=== PATIENT | female | born 1950 | race Caucasian/White ===

== ENCOUNTER 2018-07-07 02:41 | Outpatient (RCR) | payer MEDICARE, OTHER, SELFPAY ==
[2018-07-07] MEDS: Normal Saline Flush 10 ML SYR IVP (10:34)
== END 2018-07-09 ==
LOC: INF 02:41
PROVIDERS: PCP Internal Medicine; Visit Provider Internal Medicine
DX: M81.0 Age-related osteoporosis without current pathological fracture (principal)
CPT/HCPCS: 96365; J3489

== ENCOUNTER 2018-07-27 11:58 | Outpatient (CLI) | payer MEDICARE, OTHER, SELFPAY ==
--- NOTE | 2018-07-27 06:00 | DI.RAD_ITS ---
SYMPTOMS/DIAGNOSIS: SACROILIAC JOINT INJECTION PAIN CLINIC LUMBAR SPINE: Fluoroscopy Time: 15.9 sec, 1.83 mGy An image submitted from the Pain Clinic demonstrates needle positioning over the inferior portion of the right SI joint in conjunction with an injection carried out by Dr. Samuel. Please see the procedure report for further information.
[2018-07-27 12:14] VITALS: BP 108/69; PULSE 70; RESP 20; TEMP 36.1; O2SAT 98
[2018-07-27] MEDS: Omnipaque 240 MG/ML 50 ML BTL IJ (12:40)
[2018-07-27] MEDS: methylPREDNISolone ACETATE 80 MG/ML VIAL IJ (12:40)
--- NOTE | 2018-07-27 12:42 | PDOC.PAIN_ITS ---
Pain Clinic Procedure Note RIght Sacroiliac (SI) JOINT INJECTION KERI BROUSSARD has been referred to the [facility] for intra- articular SI joint injection. COMMENTS: She did very well with her first right SIJ injection BOBO was interviewed and the medical record reviewed. There were no medical, pharmacologic, radiographic or other structural contraindications to attempting fluoroscopically guided intra-articular SI joint injection. Risks and expected side effects as well as potential benefit of the procedure were reviewed with BOBO, and BOBO's voiced concerns addressed. The printed consent form was signed and witnessed. Standard time-out procedure was performed. BOBO was placed in the prone position on the fluoroscopy table and automated blood pressure cuff and pulse oximeter applied. The skin entry point for approaching right SI joints was identified under the most advantageous fluoroscopic view and marked. Following thorough Chlorhexadine preparation of the skin and draping and 1% lidocaine infiltration of the skin entry point and subcutaneous tissues, a 22 gauge spinal needle was placed under fluoroscopic guidance into the right SI joint. Intra-articular placement was confirmed by a clear arthrogram resulting from the injection of 0.25ml Omnipaque 240, 1ml 1% Lidocaine, and 80 mg/cc Depomedrol were injected intra-articularily with an initial reproduction of a significant component of the usual pain. EVANGELINAs vital signs were stable throughout the procedure and were as recorded in the docflowsheet by the nursing staff. Follow up plans and appointments were discussed with the BOBO. Post procedure instruction was given as documented in nursing documentation and having met discharge criteria, BOBO was discharged from the [facility]. COMMENTS: This procedure can be completed up to 4 times every 12 months if it is found to be helpful. CC: Ayah Albrecht
[2018-07-27 12:45] VITALS: BP 134/78; PULSE 66; RESP 13; O2SAT 100
== END 2018-07-27 12:18 ==
PROVIDERS: PCP Internal Medicine; Visit Provider Preventive Medicine Occupational Medicine
DX: M53.3 Sacrococcygeal disorders, not elsewhere classified (principal)
CPT/HCPCS: 27096; 72100; J1040; Q9967

== ENCOUNTER 2018-08-31 08:40 | Outpatient (CLI) | payer MEDICARE, OTHER, SELFPAY ==
[2018-08-31 08:45] VITALS: BP 109/77; PULSE 78; RESP 18; TEMP 36.3; O2SAT 100
[2018-08-31] MEDS: Omnipaque 240 MG/ML 50 ML BTL IJ (09:56)
[2018-08-31] MEDS: methylPREDNISolone ACETATE 40 MG/ML VIAL IJ (10:00)
--- NOTE | 2018-08-31 10:02 | DI.RAD_ITS ---
SYMPTOM/DIAGNOSIS: LUMBAR RADICULOPATHY C-ARM: Fluoroscopy Time: 22.7 sec 3.83 mGy Fluoroscopy was provided for guidance with lumbar spine pain clinic injection. Hard copy images show a needle inserted from the posterior aspect at the L 4-5 level. Please see procedure note for details.
[2018-08-31 10:11] VITALS: BP 152/69; PULSE 66; RESP 14; O2SAT 98
--- NOTE | 2018-08-31 10:11 | PDOC.PAIN ---
Pain Clinic Procedure Note Current Active Problems Problem Status Onset Lumbar radicular syndrome Chronic Epidural Steroid Injection Procedure Note COMMENTS: Patient has low back pain radiating to right lower extremity. She had 2 sacroiliac joint injections. The first 1 gave her some relief of her pain. The second 1 did not help. Going to chiropractor. She had an MRI which shows some degenerative changes at the lumbar spine multiple levels with some very mild foraminal narrowing at L4 on the right. KERI BROUSSARD has been referred to the [facility] for lumbar epidural steroid injection. The patient was greeted by the nurse who verified patients name and . Patient was then taken to the fluoroscopy suite. The patient was interviewed and the medial record reviewed. There were no medical, pharmacologic, radiographic, or other structural contraindications to attempting fluoroscopically guided lumbar epidural steroid injection. Risks and expected side effects as well as potential benefits of the procedure were reviewed and voiced concerns expressed. The patient consent form was signed and witnessed. Standard patient time-out procedure was performed. The patient was placed in the prone position on the fluoroscopy table and automated blood pressure cuff and pulse oximeter applied. The skin entry point for entering/approaching the epidural space by a {L4-5} and marked. Following thorough chlorhexadine preparation of the skin and draping and 1% lidocaine infiltration of the skin entry point and subcutaneous tissues, a 17 gauge Touhy needle was placed under fluoroscopic guidance and with loss of resistance technique into the epidural space. Needle tip placement and depth were aided and confirmed by fluoroscopy. There was no paresthesia or return of blood or CSF through the needle. 1 cc's of Omnipaque 240 was injected with clear epidural spread confirmed with fluoroscopy. 80mg depomedrol was injected. There was not any unusual discomfort expressed by KERI BROUSSARD. Patient's vital signs were stable throughout the procedure and were as recorded in nursing records. Follow up plans and appointments were discussed with patient. Post procedure instruction was given as documented in nursing records and having met discharge criteria and was discharged from the [facility]. COMMENTS: Patient will follow-up as needed. If he is not better I suggested he try Gayathri approach for her back pain and I have given her the book treat your own back. I would not repeat the injection if she did not get significant lasting relief. If she has signs of mechanical low back pain with facet loading then could always be considered for medial branch blocks and radiofrequency ablation. She will follow-up with either or [facility] if not better.
== END 2018-08-31 09:00 ==
PROVIDERS: PCP Internal Medicine; Visit Provider Anesthesiology Pain Medicine
DX: M54.16 Radiculopathy, lumbar region (principal); G89.29 Other chronic pain
CPT/HCPCS: 62323; 72100; J1030; Q9967

== ENCOUNTER 2018-09-16 08:07 | Outpatient (CLI) | payer MEDICARE, OTHER, SELFPAY ==
[2018-09-16 09:59] LABS: Cholesterol 204 mg/dL (50-200); HDL Cholesterol 115 mg/dL (40-60); LDL CHOLESTEROL 72 mg/dL (<100); Triglyceride 51 mg/dL (30-150)
[2018-09-16 10:37] LABS: ESR 21 MM/HR (0-30)
== END 2018-09-16 08:27 ==
PROVIDERS: PCP Internal Medicine; Visit Provider Internal Medicine
DX: R07.89 Other chest pain (principal)
CPT/HCPCS: 36415; 80061; 83721; 85652

== ENCOUNTER 2018-10-11 00:38 | Outpatient (CLI) | payer MEDICARE, OTHER, SELFPAY ==
--- NOTE | 2018-10-11 13:00 | DI.CTLCSR_ITS ---
SYMPTOM/DIAGNOSIS: TOBACCO DEPENDENCE, F17.210, SCREENING FOR LUNG CA CT SCAN CHEST FOR LUNG CANCER SCREENING: CT scan of the chest was performed according to the low dose lung cancer screening protocol. Comparison examination 06/01/17. There is atherosclerosis of the thoracic aorta but no aneurysmal dilatation. Heart size is within normal limits, no significant pericardial effusion seen. Coronary artery calcifications are present. No significant thoracic adenopathy is appreciated on this noncontrast examination. No pleural effusion or pneumothorax is identified. There are again seen mild emphysematous changes in the lungs. No pulmonary nodules or infiltrates are seen. The tracheobronchial tree is unremarkable. Mild dependent atelectatic changes are seen in the lungs. There is also mild scarring in the lung bases. Upper abdominal images show no acute abnormality. The bones appear intact. IMPRESSION: No pulmonary nodules. Lung rads Category 1. Lung-RAD Category: Lung RADS Category 1- Negative
== END 2018-10-11 00:58 ==
PROVIDERS: PCP Internal Medicine; Visit Provider Internal Medicine
DX: Z12.2 Encounter for screening for malignant neoplasm of respiratory organs (principal); F17.210 Nicotine dependence, cigarettes, uncomplicated; J43.9 Emphysema, unspecified; J98.4 Other disorders of lung
CPT/HCPCS: G0297

== ENCOUNTER 2018-10-13 01:06 | Outpatient (CLI) | payer MEDICARE, OTHER, SELFPAY ==
--- NOTE | 2018-10-13 14:30 | DI.MAMMO_ITS ---
SYMPTOM/DIAGNOSIS:SCREENING FOR BREAST CANCER BILATERAL SCREENING MAMMOGRAM: Mammograms were interpreted according to the usual protocol including computer analysis with CAD system, tomosynthesis and C view imaging. Comparison is made with exams from 2010 through 2017. The breasts are composed of scattered fibroglandular densities, breast density Category B. No suspicious masses or suspicious microcalcifications are seen. There has been no significant change. IMPRESSION: Category 1-B, negative mammogram. Yearly screening mammography is recommended. [facility] [[email or web address]] ASSESSMENT OF FINDINGS: Negative. Category 1. Patient will receive a letter notifying them of these results. BI-RADS category B. There are scattered areas of fibroglandular density.
== END 2018-10-13 01:26 ==
PROVIDERS: PCP Internal Medicine; Visit Provider Internal Medicine
DX: Z12.31 Encounter for screening mammogram for malignant neoplasm of breast (principal)
CPT/HCPCS: 77063; 77067

== ENCOUNTER 2019-07-14 04:26 | Outpatient (RCR) | payer MEDICARE, OTHER, SELFPAY ==
[2019-07-14] MEDS: Normal Saline Flush 10 ML SYR IVP (10:58)
== END 2019-08-08 23:59 | disposition home or self-care (01) ==
LOC: INF 04:26
PROVIDERS: PCP Internal Medicine; Visit Provider Internal Medicine
DX: M81.0 Age-related osteoporosis without current pathological fracture (principal)
CPT/HCPCS: 96365; J3489

== ENCOUNTER 2019-10-05 01:37 | Outpatient (CLI) | payer MEDICARE, OTHER, SELFPAY ==
--- NOTE | 2019-10-05 16:24 | DI.DEXA_ITS ---
EXAM: XR DEXA BONE DENSITY W/WO NEIDA CLINICAL HISTORY: Osteoporosis M81.0 TECHNIQUE: DEXA scan was performed according to the usual protocol. COMPARISON: MAY 2017 FINDINGS: Findings for left hip scanning are T-score -2.7 with left femoral neck T-score -2.5. Previous examin ation of May 2017 showed left hip T-score -2.7. Lumbar spine scanning shows T-score -2.7. Prior examination of May 2017 showed lumbar T-score -2.8. Left forearm scanning shows T-score -1.6. Previous examination showed T-score -1.2 in May 2017. IMPRESSION: Findings consistent with osteoporosis according to the WHO criteria. Lateral vertebral scanogram show s minimal anterior wedging of a couple of mid thoracic vertebral bodies.
== END 2019-10-05 01:57 ==
PROVIDERS: PCP Internal Medicine; Visit Provider Internal Medicine
DX: M81.0 Age-related osteoporosis without current pathological fracture (principal)
CPT/HCPCS: 77080

== ENCOUNTER 2019-10-17 00:07 | Outpatient (CLI) | payer MEDICARE, OTHER, SELFPAY ==
--- NOTE | 2019-10-17 08:37 | DI.CTLCSR_ITS ---
EXAM: CT CHEST LUNG CANCER SCREEN CLINICAL HISTORY: screening for lung cancer,nicotine dependence,f17.210 TECHNIQUE: Low-dose noncontrast COMPARISON: CT CHEST LUNG CANCER SCREEN from 10/11/2018 FINDINGS: The heart size is normal. Coronary artery and aortic calcifications are again noted. The aorta renny ears normal in diameter. No pleural or pericardial effusions or focal infiltrates are seen. Emphyse matous changes are again noted, greatest at the lung apices. There are also increased interstitial ch anges throughout, greater at the upper lobes and lung bases peripherally. No pulmonary nodules are i dentified. IMPRESSION: Lung RADS Cat 1 - Negative. Annual low-dose screening CT is recommended.
--- NOTE | 2019-10-17 08:42 | DI.MAMMO_ITS ---
EXAM: MG MAMMO SCREENING CLINICAL HISTORY: screening. TECHNIQUE: Full field digital CC and MLO mammographic images were obtained with 3D tomosynthesis and utilizing computer aided detection (CAD). COMPARISON: [id number] available for comparison. FINDINGS: Masses/Architectural Distortion: None seen. Microcalcifications: No suspicious pleomorphic-type are seen. Skin Thickening/Nipple Retraction: None. IMPRESSION: 1. No significant interval change with no specific features of malignancy noted. 2. Unless there is more urgent need, screening mammography is recommended, as per [place] [employer] guidelines. BI-RADS Cat 1 - Negative Breast Density - Category B - Scattered areas of fibroglandular density A negative radiographic report should not delay biopsy if a dominant or clinically suspicious mass is present. Up to ten percent of cancers are not identified on mammography. A negative report may reinforce clinical impression. Adenosis and dense breasts may obscure an underlying neoplasm. False positive reports average 6 to 10%. Patient will receive a letter notifying them of these results.
== END 2019-10-17 00:27 ==
PROVIDERS: PCP Internal Medicine; Visit Provider Internal Medicine
DX: Z12.31 Encounter for screening mammogram for malignant neoplasm of breast (principal); Z12.2 Encounter for screening for malignant neoplasm of respiratory organs; F17.210 Nicotine dependence, cigarettes, uncomplicated
CPT/HCPCS: 77063; 77067; G0297

== ENCOUNTER 2020-05-17 01:18 | Outpatient (CLI) | payer MEDICARE, OTHER, SELFPAY ==
[2020-05-17 08:43] LABS: Calculated LDL 85 mg/dL (<100); Cholesterol 194 mg/dL (<200); Glucose 98 mg/dL (74-106); HDL Cholesterol 102 mg/dL (40-60); Triglyceride 39 mg/dL (<150)
== END 2020-05-17 01:38 ==
PROVIDERS: PCP Internal Medicine; Visit Provider Internal Medicine
DX: E78.00 Pure hypercholesterolemia, unspecified (principal); R73.03 Prediabetes
CPT/HCPCS: 36415; 80061; 82947

== ENCOUNTER 2020-06-19 01:31 | Outpatient (CLI) | payer MEDICARE, OTHER, SELFPAY ==
--- NOTE | 2020-06-19 07:30 | DI.RAD_ITS ---
EXAM: XR ANKLE RT COMPLETE CLINICAL HISTORY: pain and swelling right ankle,M25.571,M25.473. TECHNIQUE: 2D digital imaging was performed. COMPARISON: No exams were available for comparison FINDINGS: BONES: No acute fracture is present. No bony destructive lesion is seen. JOINTS: The ankle mortise is normally aligned. SOFT TISSUE: Normal. IMPRESSION: Unremarkable radiographs of the right ankle. DATA REPOSITORY: RADIATION DOSE DELIVERED:
== END 2020-06-19 01:51 ==
PROVIDERS: PCP Internal Medicine; Visit Provider Nurse Practitioner
DX: M25.571 Pain in right ankle and joints of right foot (principal); M25.473 Effusion, unspecified ankle
CPT/HCPCS: 73610

== ENCOUNTER 2020-10-19 10:08 | Outpatient (CLI) | payer MEDICARE, OTHER, SELFPAY ==
--- NOTE | 2020-10-19 12:27 | DI.RAD_ITS ---
EXAM: XR FOOT LT COMPLETE CLINICAL HISTORY: R/o fx s/p fall M79.672. TECHNIQUE: 2D digital imaging was performed. COMPARISON: No exams were available for comparison FINDINGS: BONES: No acute fracture is present. No bony destructive lesion is seen. JOINTS: No dislocation present. SOFT TISSUE: Normal. IMPRESSION: Unremarkable radiographs of the left foot. DATA REPOSITORY: RADIATION DOSE DELIVERED:
--- NOTE | 2020-10-19 12:28 | DI.RAD_ITS ---
EXAM: XR ANKLE LT COMPLETE CLINICAL HISTORY: R/o fx s/p fall M25.572 TECHNIQUE: 2D digital imaging was performed. COMPARISON: CR XR FOOT LT COMPLETE from 10/19/2020 FINDINGS: No fracture or dislocation is seen. There is no talar dome defect. The ankle mortise is not widene d. IMPRESSION: Negative left ankle.
== END 2020-10-19 10:28 ==
PROVIDERS: PCP Internal Medicine; Visit Provider Nurse Practitioner Family
DX: M25.572 Pain in left ankle and joints of left foot (principal); M79.672 Pain in left foot
CPT/HCPCS: 73610; 73630

== ENCOUNTER 2020-10-22 00:22 | Outpatient (CLI) | payer MEDICARE, OTHER, SELFPAY ==
--- NOTE | 2020-10-22 07:45 | DI.CTLCSR_ITS ---
EXAM: CT CHEST LUNG CANCER SCREEN CLINICAL HISTORY: Screening for lung cancer,CURRENT SMOKER, F17.210. TECHNIQUE: Imaging Protocol: Low Dose Technique CONTRAST MATERIAL: None COMPARISON: CT CT CHEST LUNG CANCER SCREEN from 10/17/2019 FINDINGS: CHEST: LUNGS: Emphysematous changes again noted. There are no ominous pulmonary nodules. No pleural effusi ons. MEDIASTINUM: There is no obvious hilar nor mediastinal adenopathy. CARDIAC: Heart size is normal. There is no pericardial effusion.Caliber of the thoracic aorta is wit hin normal limits. OSSEOUS: No significant osseous lesions.. OTHER: IMPRESSION: 1. COPD emphysematous changes but no new significant infiltrates, lung nodules, nor pleural effusions . No obvious intrathoracic adenopathy. Lung rads 1-annual screening RADIATION DOSE DELIVERED: 82.24mGy.cm Total DLP 82.24mGy.cm Total DLP DATA REPOSITORY: All CT scans at this facility are submitted to the National Radiology Data Registry (NRDR) Dose Index Registry (DIR) with the [employer] (ACR). RADIATION OPTIMIZATION: All CT scans at this facility use at least one of these dose optimization te chniques: automated exposure control; mA and/or kV adjustment per patient size (includes targeted exa ms where dose is matched to clinical indication); or iterative reconstruction.
--- NOTE | 2020-10-22 12:45 | DI.MAMMO_ITS ---
EXAM: MG MAMMO SCREENING CLINICAL HISTORY: screening,Z12.39. TECHNIQUE: Bilateral full field digital CC and MLO mammographic images were obtained with 3D tomosyn thesis and utilizing computer aided detection (CAD). COMPARISON: Prior mammograms dating back to 2011, the most recent being October 2019. FINDINGS: There are no CAD designations. No new significant radiograph findings in left breast. In the central right breast there is a small asymmetric density more evident on prior studies. Spot compression 3D views recommended. There are no malignant-appearing microcalcification groups in this region or elsewhere in either breast. There is no significant architectural distortion nor skin thickening-retraction. IMPRESSION: No radiographic evidence of malignancy in the left breast. Right breast there is junction of this subtle density centrally at approximately 12 o'clock position. Recommend spot compression 3D cc and straight lateral views.. BI-RADS Category 0 - Assessment Incomplete: Need additional imaging evaluation Breast Density - Category B - Scattered areas of fibroglandular density Breast density Category C or D implies that the patient has dense breast tissue. Dense breast tissue can make it harder to find cancer on a mammogram. Dense breast tissue is also associated with an incr eased risk of breast cancer. This information about the result of the mammogram report was provided to the patient to raise their awareness. Use this report when you speak with the patient about their risks for breast cancer, which includes their family history. At that time, you may recommend additional screening tests (Ultrasoun d or MRI) as these tests may add significant information. A negative radiographic report should not delay biopsy if a dominant or clinically suspicious mass is present. Up to ten percent of cancers are not identified on mammography. A negative report may reinforce clinical impression. Adenosis and dense breasts may obscure an underlying neoplasm. False positive reports average 6 to 10%. Patient will receive a letter notifying them of these results.
== END 2020-10-22 00:42 ==
PROVIDERS: PCP Internal Medicine; Visit Provider Internal Medicine
DX: F17.210 Nicotine dependence, cigarettes, uncomplicated (principal); J44.9 Chronic obstructive pulmonary disease, unspecified; Z12.31 Encounter for screening mammogram for malignant neoplasm of breast; R92.8 Other abnormal and inconclusive findings on diagnostic imaging of breast
CPT/HCPCS: 77063; 77067; G0297

== ENCOUNTER 2020-10-26 04:18 | Outpatient (CLI) | payer MEDICARE, OTHER, SELFPAY ==
--- NOTE | 2020-10-26 | DI.US_ITS ---
EXAM: MG MAMMO SCREEN CALL BACK UNI AND U/S BREAST RT LIMITED CLINICAL HISTORY: F/U MAMMO, ASYMMETRIC DENSITY RT BREAST. TECHNIQUE: Craniocaudal and mediolateral oblique Full Field Digital Mammography views of the right b reast with Computer Aided Diagnosis followed by Tomosynthesis and right breast ultrasound. COMPARISON: Priors available for comparison. FINDINGS: Mammography/Tomosynthesis: Masses/Architectural Distortion: None seen. Microcalcifictions: No suspicious pleomorphic-type are seen. Skin Thickening/Nipple Retraction: None. Right breast US: All 4 quadrants of the right breast were evaluated including the right axilla and retroareolar areas. Echotexture: Normal appearance of the glandular tissue. Shadowing: No suspicious foci. Cyst: None. Solid lesions: None seen. Ductal dilation: None. IMPRESSION: 1. No evidence of malignancy is noted. 2. Unless there is more urgent need, follow-up screening mammography is recommended, as per [place] [employer] guidelines. 3. The findings were discussed with the patient on the date of the examination. BI-RADS Category 1 - Negative Breast Density - Category B - Scattered areas of fibroglandular density A negative radiographic report should not delay biopsy if a dominant or clinically suspicious mass is present. Up to ten percent of cancers are not identified on mammography. A negative report may reinforce clinical impression. Adenosis and dense breasts may obscure an underlying neoplasm. False positive reports average 6 to 10%. Patient will receive a letter notifying them of these results.
== END 2020-10-26 04:38 ==
PROVIDERS: PCP Internal Medicine; Visit Provider Internal Medicine
DX: Z12.31 Encounter for screening mammogram for malignant neoplasm of breast (principal); R92.8 Other abnormal and inconclusive findings on diagnostic imaging of breast; N60.81 Other benign mammary dysplasias of right breast
CPT/HCPCS: 76642; 77063; 77067

== ENCOUNTER 2021-02-26 02:39 | Outpatient (CLI) | payer MEDICARE, OTHER, SELFPAY ==
[2021-02-26 08:52] LABS: HCT 43.6 % (36.0-46.0); HGB 14.5 g/dL (11.2-15.7); MCH 30.9 pg (27.0-33.0); MCHC 33.3 % (32.0-36.0); MCV 92.8 fL (80-95); MPV 9.7 fL (8.0-11.0); Platelet Count 227 10^3/uL (130-400); RDW 13.3 % (11.7-14.6); RDW-SD 45.2 fL; WBC 5.91 10^3/uL (4.4-10.8)
[2021-02-26 10:04] LABS: ALT 24 U/L (14-59); AST 22 U/L (15-37); Albumin 4.1 g/dL (3.4-5.0); Alkaline Phosphatase 101 U/L (46-116); BUN 8 mg/dL (7-18); Bilirubin, Total 0.4 mg/dL (0.2-1.0); Calcium 9.4 mg/dL (8.5-10.1); Chloride 104 mmol/L (98-107); Glucose 97 mg/dL (74-106); Potassium 4.6 mmol/L (3.5-5.1); Sodium 140 mmol/L (136-145); Total Protein 7.5 g/dL (6.4-8.2)
== END 2021-02-26 02:40 | disposition home or self-care (01) ==
LOC: LBO 02:40
PROVIDERS: PCP Internal Medicine; Visit Provider Obstetrics & Gynecology Gynecology
DX: R10.9 Unspecified abdominal pain (principal); K58.9 Irritable bowel syndrome, unspecified; I65.29 Occlusion and stenosis of unspecified carotid artery
CPT/HCPCS: 36415; 80053; 85027

== ENCOUNTER → 2021-03-04 09:31 | Outpatient (BNVA) | payer MEDICARE, OTHER, SELFPAY | PROVIDERS: PCP Internal Medicine; Referring Provider Internal Medicine; Visit Provider Surgery | DX: K59.00 Constipation, unspecified (principal) | CPT/HCPCS: 99203 ==

== ENCOUNTER 2021-04-03 11:45 | Emergency (ER) | payer MEDICARE, OTHER, SELFPAY ==
[2021-04-03] VITALS (34 sets, daily range): BP systolic 146–174; BP diastolic 60–100; PULSE 53–72; RESP 11–21; TEMP 36.7; O2SAT 95–99
--- NOTE | 2021-04-03 11:45 | RT.EKG_ITS ---
APPROVED REPORT Exam: Resting ECG Reason for Exam: sob Patient Location: E HR:60 bpm ECG Measurements Heart Rate 60 AXIS MA 193 P 76 QRSd 134 QRS -27 QT 455 T 99 QTc 456 Conclusion Sinus rhythm...normal P axis, V-rate 60- 99 Left bundle branch block...QRSd>120, broad/notched R
--- NOTE | 2021-04-03 12:45 | DI.CT_ITS ---
Exam(s) CT HEAD WO EXAM: CT HEAD WO CLINICAL HISTORY: headache, chronic right arm paresthesia. TECHNIQUE: Imaging Protocol: Axial computed tomography images with coronal and sagittal reformatted images were created and reviewed COMPARISON: No exams were available for comparison FINDINGS: There are no skull fractures nor fluid in the visualized paranasal sinuses. There is no evidence of intracranial hemorrhage, mass effect, or shift of midline structures. There are no extra-axial fluid collections. The ventricles are not enlarged or shifted and there is no blo od within the ventricular system nor within the basal cisterns. Calcification noted in the vertebral arteries at the skull base as well as within the intracavernous internal carotid arteries. IMPRESSION: No acute intracranial findings on this noninfused CT scan of the brain. RADIATION DOSE DELIVERED: 628.83mGy.cm Total DLP DATA REPOSITORY: All CT scans at this facility are submitted to the National Radiology Data Registry (NRDR) Dose Index Registry (DIR) with the [employer] (ACR). RADIATION OPTIMIZATION: All CT scans at this facility use at least one of these dose optimization te chniques: automated exposure control; mA and/or kV adjustment per patient size (includes targeted exa ms where dose is matched to clinical indication); or iterative reconstruction.
[2021-04-03 12:59] LABS: Abs Immature Grans 0.02 10^3/uL (0.0-0.06); Absolute Basophil Count 0.07 10^3/uL (0.0-0.2); Absolute Eosinophil Count 0.03 10^3/uL (0.0-0.7); Absolute Lymphocyte Count 1.72 10^3/uL (1.2-3.4); Absolute Neutrophil Count 3.53 10^3/uL (1.2-6.7); Basophils % 1.2; Eosinophils % 0.5; HCT 40.1 % (36.0-46.0); HGB 13.6 g/dL (11.2-15.7); Immature Grans % 0.3; Lymphocytes % 29.3; MCH 30.8 pg (27.0-33.0); MCHC 33.9 % (32.0-36.0); MCV 90.9 fL (80-95); Monocytes % 8.5; Neutrophils % 60.2; Nucleated RBC 0 %; Platelet Count 231 10^3/uL (130-400); RBC 4.41 10^6/uL (3.93-5.22); RDW 13.3 % (11.7-14.6); RDW-SD 45.1 fL; WBC 5.87 10^3/uL (4.4-10.8)
[2021-04-03 13:36] LABS: ALT 22 U/L (14-59); AST 21 U/L (15-37); Albumin 3.8 g/dL (3.4-5.0); Alkaline Phosphatase 79 U/L (46-116); Anion Gap 7.7 mmol/L (3-11); BUN 9 mg/dL (7-18); Bilirubin, Total 0.5 mg/dL (0.2-1.0); CO2 27.3 mmol/L (21.0-32.0); Chloride 101 mmol/L (98-107); Glucose 88 mg/dL (74-106); NT-proBNP 482 pg/mL (<300); Sodium 136 mmol/L (136-145); Total Protein 7.1 g/dL (6.4-8.2); Troponin I < 0.05 ng/mL (<0.06)
--- NOTE | 2021-04-03 14:30 | DI.CT_ITS ---
Exam(s) CT CHEST PE CTA EXAM: CT CHEST PE CTA CLINICAL HISTORY: chest pain. TECHNIQUE: Imaging Protocol: CT angiography of the chest was performed using pulmonary embolus oscar col. Multi planar reconstructions were performed. CONTRAST MATERIAL: Intravenous: Omnipaque 350 Contrast volume: 90 cc COMPARISON: CT CT CHEST LUNG CANCER SCREEN from 10/22/2020 FINDINGS: CHEST: PULMONARY ARTERIES: There are no intraluminal filling defects to suggest acute pulmonary emboli. LUNGS: There are no infiltrates nor evidence of pulmonary infarction.. There are no pleural effusions . MEDIASTINUM: There is no hilar nor mediastinal adenopathy. CARDIAC: Heart size is upper normal. There is no pericardial effusion.Caliber of the thoracic aorta is within normal limits. There is no significant shift of the interventricular septum. PARTIALLY VISUALIZED UPPERMOST ABDOMEN: No obvious findings OSSEOUS: No significant osseous lesions.. IMPRESSION: 1. No evidence of acute pulmonary emboli. No evidence of pulmonary infarction.No pleural effusions. 2. No intrathoracic adenopathy. RADIATION DOSE DELIVERED: 257.03mGy.cm Total DLP DATA REPOSITORY: All CT scans at this facility are submitted to the National Radiology Data Registry (NRDR) Dose Index Registry (DIR) with the [employer] (ACR). RADIATION OPTIMIZATION: All CT scans at this facility use at least one of these dose optimization te chniques: automated exposure control; mA and/or kV adjustment per patient size (includes targeted exa ms where dose is matched to clinical indication); or iterative reconstruction.
--- NOTE | 2021-04-03 14:36 | W.ED.GENAD ---
Discharge Plan Disposition Patient Disposition: HOME Condition: Stable Discharge Details Clinical Impression: Headache, Chest pain, Hiatal hernia Primary Care Provider: Ayah Albrecht ED Provider: Maximo Vazquez Home Meds and New Rx's Prescriptions: Continued ibuprofen [Advil] 200 mg tablet 600 mg PO Q6H PRNRF: 0 trazodone 100 mg tablet 200 mg PO HS Qty: 180 RF: 3 Linzess 72 mcg capsule 72 mcg PO DAILY Qty: 30 RF: 12 lubiprostone [Amitiza] 8 mcg capsule 8 mcg PO DAILY Qty: 30 RF: 12 sennosides-docusate sodium [Senna-S] 8.6-50 mg tablet 1 tab-cap PO QHS RF: 0 calcium carbonate-vitamin D3 [Caltrate with Vitamin D3] 1 EACH tablet 1 ea PO BID RF: 0 gabapentin [Neurontin] 600 mg tablet 600 mg PO HS Qty: 90 RF: 3 duloxetine 20 mg capsule,delayed release(DR/EC) 20 mg PO DAILY Qty: 90 RF: 2 acetaminophen [Pain Reliever Extra Strength] 500 MG tablet 1,000 mg PO PRN PRNRF: 0 Probiotic Blend 2 billion cell-50 mg Capsule 1 cap PO QAM RF: 0 Magnacom 1 ea PO HS RF: 0 Discharge Instructions Instructions: Chest Pain (ED), Hiatal Hernia (ED), General Headache (ED) Additional Instructions: You had an occipital block performed today for your headache. Blood test today did not reveal heart attack. Your BNP level was slightly elevated. Be sure to discuss this with your doctor. You should have a stress test performed ideally within the next 72 hours. Please do follow-up with your primary care physician. Call tomorrow to arrange timely follow-up. Referrals: Ayah Albrecht MD [Primary Care Provider] - Medical Decision Making [id number] -- 70-year-old female smoker with intermittent chest tightness for the past 1 week with associated presyncope also with pain in her posterior neck and head. Patient does have dyspnea on exertion. Concern for ACS ECG was reviewed interpreted by me: Please see report,Left bundle branch block present, sinus rhythm 60 bpm?left bundle branch block was present on prior EKG 04/2014. Initial troponin is negative. Consider CHF as patient does have new onset dyspnea on exertion. I check BNP and this was slightly elevated at 482. Consider acute pulmonary embolism given chest pain. Plan to obtain CTA of the chest. Patient does have headache as well, unclear etiology, no meningismus, recent memory difficulty and also some decreased sensation to light touch right arm that is chronic, will obtain CT of the head. --CT head interpreted by radiology: neg 1600 --CT of the chest was interpreted by radiology: IMPRESSION: 1. No evidence of acute pulmonary emboli. No evidence of pulmonary infarction.No pleural effusions. 2. No intrathoracic adenopathy. Labs reviewed and nondiagnostic. Initial troponin negative. Plan to repeat troponin. Patient was reassessed and denies CP. She continues to note mild to moderate headache which is localized to upper neck posterior bilateral and occiput that radiates to her superior head. Presentation is not consistent with subarachnoid hemorrhage. More likely tension headache versus migraine. Patient does note she frequently does have headaches. I spoke with her about occipital block she provided informed consent to this treatment. Occipital block was performed by me without complication 1640??patient reassessed and pain resolved with block . Patient was hungry and was given a meal tolerating well. Plan will be for discharge with outpatient follow-up with PCP and she should have stress test performed. Disposition decision was made weighing the risks and benefits of hospitalization versus outpatient treatment, the risk for further decompensation, and the patient's wishes. The patient was stable and requested discharge. Prior to discharge, my usual and customary return precautions were reviewed with the patient - this included follow-up instructions and reason to return to the emergency department if condition worsens, does not improve as expected, or other new concerns arise. HPI General Date/Time Provider Initiated Documentation: 04/03/21 12:10. Limitations to Documentation: no limitations. Information obtained by: patient. HPI Narrative: 70-year-old female with multiple medical problems including history of tobacco dependence, pulmonary emphysema, GERD, presents with chief complaint of chest pain. Patient has she had intermittent chest pain for the past 1 week. Pain is described as a tightness. Pain localized retrosternal and left anterior chest. Patient notes that she has had some lightheadedness described as presyncope intermittent over the past couple days. She did experience this earlier today patient also notes some associated pain in her posterior neck bilaterally and also has had headache. Patient also has had exertional shortness of breath. Patient states she has intermittent tingling numbness in her hands bilaterally. She does not currently have numbness. No focal weakness Related Data Home Medications Medication Instructions Recorded Confirmed calcium carbonate-vitamin D3 1 ea PO BID 04/07/17 04/03/21 [Caltrate with Vitamin D3] acetaminophen [Pain Reliever Extra 1,000 mg PO PRN PRN 05/25/18 04/03/21 Strength] sennosides 8.6 mg-docusate sodium 1 tab-cap PO QHS 12/08/19 04/03/21 50 mg tablet ibuprofen 200 mg tablet 600 mg PO Q6H PRN tab 06/19/20 04/03/21 gabapentin 600 mg tablet 600 mg PO HS #90 tab 10/17/20 04/03/21 trazodone 100 mg tablet 200 mg PO HS #180 tab-cap 10/23/20 04/03/21 duloxetine 20 mg capsule,delayed 20 mg PO DAILY #90 cap 11/20/20 04/03/21 release linaclotide 72 mcg capsule 72 mcg PO DAILY #30 cap 03/04/21 04/03/21 lubiprostone 8 mcg capsule 8 mcg PO DAILY #30 cap 03/04/21 04/03/21 Magnacom 1 ea PO HS 04/03/21 04/03/21 Probiotic Blend 1 cap PO QAM 04/03/21 04/03/21 Previous Rx's Medication Instructions Recorded gabapentin 600 mg tablet 600 mg PO HS #90 tab 10/17/20 trazodone 100 mg tablet 200 mg PO HS #180 tab-cap 10/23/20 duloxetine 20 mg capsule,delayed 20 mg PO DAILY #90 cap 11/20/20 release linaclotide 72 mcg capsule 72 mcg PO DAILY #30 cap 03/04/21 lubiprostone 8 mcg capsule 8 mcg PO DAILY #30 cap 03/04/21 Allergies Allergy/AdvReac Type Severity Reaction Status Date / Time Sulfa (Sulfonamide Allergy Intermediate swelling, Verified 04/03/21 12:23 Antibiotics) hives, itching oxycodone HCl [From Percocet] Allergy Unknown unknown Verified 04/03/21 12:23 omeprazole AdvReac Intermediate bloating, Verified 04/03/21 12:23 itching diarrhea, varenicline tartrate AdvReac Intermediate Anxiety/hea Verified 04/03/21 12:23 [From Chantix] dache/dopin ess. General Stated Complaint: Chest Pain DAVID: 2 Review of Systems All systems reviewed & are unremarkable except as noted in HPI and below Constitutional Constitutional: Denies fever(s) Cardiovascular Cardiovascular: Reports as per HPI, Reports chest pain, Reports dyspnea and Reports dyspnea on exertion Respiratory Respiratory: Reports dyspnea and Reports dyspnea on exertion [facility] Medical History Essential hypertension (11/13/11) Essential hypertension (11/13/11) Lumbar radicular syndrome Non-cardiac chest pain (05/01/15) Vulvar pruritus Not responsive to topical estrogen. 09/2019 patient treated with clobetasol cream 11/2019 symptoms improving we will continue twice weekly Surgical History Abdominal hysterectomy Colonoscopy - IV Sedation (07/07/14) Dr. Kt Nava, Both Family History Sister Essential hypertension Brother Essential hypertension Sister Rheumatoid arthritis Hypertension Social History Smoking/Tobacco Use Status: Current every day Tobacco: How many years used: 50 Quit status: not considering quitting Smoking risk assessment performed?: Yes Alcohol Intake: current Alcohol Intake frequency: holidays/special occasions only Drug use: Never Substance use type: does not use Caregiver/Support person: No Household members: spouse and other Details: H-Marvel x 50yrs Housing: house Number of Children: 2 Communication Needs: Corrective Lenses current occupation: retired Current gender identity: female What is your relationship status?: Panel score (0-1 are the most socially isolated patients): 1 What type of physical activity do you participate in: walking Frequency: 3-4 times per week Seatbelt use: always Drive intox or ride w/intox 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 Children. Sonia. 48yo. Wilner 45yo. One grandchild. Exam Const General: cooperative and no acute distress [facility] Head: normocephalic and atraumatic Mouth: moist mucous membranes Eyes Conjunctivae: normal conjunctivae Sclera: normal sclerae EOM: EOM intact bilaterally Neck Neck: trachea midline and supple Resp Auscultation: clear to auscultation bilaterally, no rales, no rhonchi and no wheezes Cardio Rate: regular rate and not tachycardic Rhythm: regular rhythm GI Palpation: soft, not firm, no guarding, no masses, not rigid and nontender Skin General skin exam: no rashes or lesions noted Neuro General: patient alert, patient awake, patient oriented x3 and tone normal Speech: speech normal Motor: strength 5/5 throughout Sensory Exam: other (Diminished sensation to light touch right upper extremity compared to left ) Extrem General: no calf tenderness and no edema Psych Appearance: grossly normal Mental Status: mental status grossly normal Speech and Movement: speech and movement normal Course Vital Signs Vital signs: Vital Signs Temperature 36.7 C 04/03/21 12:05 Pulse 61 04/03/21 12:05 Respiratory Rate 16 04/03/21 12:05 Blood Pressure 150/75 H 04/03/21 12:05 Pulse Oximetry 97 04/03/21 12:05 Temperature 36.7 C 04/03/21 12:05 Temperature Source Oral 04/03/21 12:05 Pulse 60 04/03/21 14:16 Pulse 61 04/03/21 14:20 Respiratory Rate 15 04/03/21 14:20 Blood Pressure 146/73 H 04/03/21 14:16 Blood Pressure Mean 91 04/03/21 14:16 Pulse Oximetry 97 04/03/21 14:20 Oxygen Delivery Method Room Air 04/03/21 12:05 Oxygen Flow Rate 0 04/03/21 12:05 Pain Level 7 04/03/21 12:05 Lab/Test Results Lab/Test Results: Laboratory Tests Range/Units 04/03/21 04/03/21 04/03/21 12:30 12:30 13:05 WBC (4.4-10.8) 10^3/uL 5.87 RBC (3.93-5.22) 10^6/uL 4.41 Hgb (11.2-15.7) g/dL 13.6 Hct (36.0-46.0) % 40.1 MCV (80-95) fL 90.9 MCH (27.0-33.0) pg 30.8 MCHC (32.0-36.0) % 33.9 RDW (11.7-14.6) % 13.3 Plt Count (130-400) 10^3/uL 231 MPV (8.0-11.0) fL 10.0 Immature Gran % 0.3 Neutrophils % 60.2 Lymphocytes % 29.3 Monocytes % 8.5 Eosinophils % 0.5 Basophils % 1.2 Nucleated RBC % % 0 Absolute Neutrophils (1.2-6.7) 10^3/uL 3.53 Absolute Lymphocytes (1.2-3.4) 10^3/uL 1.72 Absolute Monocytes (0.1-0.8) 10^3/uL 0.50 Absolute Eosinophils (0.0-0.7) 10^3/uL 0.03 Absolute Basophils (0.0-0.2) 10^3/uL 0.07 Sodium Cancelled 136 Potassium Cancelled 4.0 Chloride Cancelled 101 Carbon Dioxide Cancelled 27.3 Anion Gap Cancelled 7.7 BUN Cancelled 9 Creatinine Cancelled 1.0 Estimated GFR/1.73 m2 Cancelled 54.50 Glucose Cancelled 88 Calcium Cancelled 9.0 Total Bilirubin Cancelled 0.5 AST Cancelled 21 ALT Cancelled 22 Alkaline Phosphatase Cancelled 79 Troponin I Cancelled < 0.05 NT-Pro-B Natriuret Pep (<300) pg/mL 482 H Total Protein Cancelled 7.1 Albumin Cancelled 3.8 Procedures Nerve Block Nerve Block 1: Time out performed: Yes Local Anesthetic: Lidocaine 1% and Bupivicaine 0.5% Amount of anesthesia used (mL): 4 Side: left and right Nerve Blocks: occipital Procedure Successful: Yes Patient Tolerated Procedure: well Complications: none
[2021-04-03] MEDS: Omnipaque 350 MG/ML 100 ML BTL IJ (14:47)
[2021-04-03] MEDS: Normal Saline - Diluent 50 ML VIAL IV (14:48)
[2021-04-03 16:23] LABS: Troponin I < 0.05 ng/mL (<0.06)
--- NOTE | 2021-04-04 17:50 | NUR.NOTE ---
Nursing Note: referral to cm to make follow up with pcp for possible memory issues
== END 2021-04-03 17:16 | disposition home or self-care (01) ==
PROVIDERS: Emergency Provider Student in an Organized Health Care Education/Training Program; PCP Internal Medicine
DX: R07.89 Other chest pain (principal); R51.9 Headache, unspecified; R79.89 Other specified abnormal findings of blood chemistry; R06.09 Other forms of dyspnea; J43.9 Emphysema, unspecified
CPT/HCPCS: 36415; 36416; 64450; 71275; 80053; 82962; 93005; 99285; 70450; 83880; 84484; 85025; 93010; J3490

== ENCOUNTER → 2021-04-15 09:54 | Outpatient (BNVA) | payer MEDICARE, OTHER, SELFPAY | PROVIDERS: PCP Internal Medicine; Referring Provider Internal Medicine; Visit Provider Surgery | DX: K59.00 Constipation, unspecified (principal) | CPT/HCPCS: 99213 ==

== ENCOUNTER 2021-04-16 02:11 | Outpatient (CLI) | payer MEDICARE, OTHER, SELFPAY ==
--- NOTE | 2021-04-16 06:45 | DI.NM_ITS ---
APPROVED REPORT Exam: Pharmacologic Patient Location: Out-Patient Room/Bed: Stress Nurse: Caitlin Viramontes RN Ordering Provider:RAPHAEL DIXON, Contact Number: [phone] BMI: 20.42 Baseline Rhythm: Sinus Bradycardia Comment: LBBB Indications: Atypical chest pain Medical History Medical History: Hypertension, tobacco use, carotid artery occlusion, pulmonary emphysema, gerd, oste oporosis, fatigue, depression/anxiety, spinal stenosis, SOB Cardiac Medications: None Allergies: Sulfa antibiotics, oxycodone HCL, varenicline tartrate Cardiac Risk Factors: Hypertension, smoker (current), family hx Previous Cardiac Procedures: cardiac cath approx 6 yrs ago Pretest Chest Pain Characteristics: Intermittent chest pressure 4/10 Exercise History: Sedentary Physical Disabilities: None Lung Sounds: Diminished lower lobes Heart Sounds: Regular Stress Test Details Test: Pharmacologic stress was paired with low level exercise. Reason for pharmacologic stress test: LBBB. Nuclear Acquisition: Rest Tc-99m/Stress Tc-99m 1 day Rest Isotope: Tc-99m Sestamibi. Dose: 10.4 Date: 04/16/2021 Injection Time: 0840 Stress Isotope: Tc-99m Sestamibi. Dose: 31.8 Date: 04/16/2021 Injection Time: 1000 HR Resting HR Supine: 52 bpm Max Heart Rate (APMHR): 148.905935 bpm Resting HR Standin bpm Target HR (85% APMHR): 125.628938 bpm Max HR Achieved: 120 bpm % of APMHR: 81.08 Recovery HR: 85 bpm BP Resting BP Supine: 150/78 mmHg Resting BP Standin/82 mmHg Max BP: 150/78 mmHg Recovery BP: 148/74 mmHg ECG Resting ECG: Sinus Bradycardia, LBBB Ectopy: None Stress ECG: Sinus Tachycardia, LBBB ST Change: Nondiagnostic LBBB Arrhythmia: Rare PAC Recovery ECG: Sinus Rhythm, LBBB Recovery ST Change: Nondiagnostic LBBB Recovery Arrhythmia: None Clinical Stress Symptoms: Dyspnea, Headache, Pounding sensation Exercise duration: 4 min15 sec Stress ECG Conclusion 1. This is a pharmacological stress test. 2. Patient developed symptoms of chest pounding and some chest pressure during infusion. 3. The EKG portion of this exam is nondiagnostic. Stress Test Summary STAGE HR BP Symptoms NOTES Supine 52 150/78 Intermittent chest pressure 4/10 this morning 1 min post Lexiscan injection 103 140/70 mild SOB, SpO2 96% 3 min post Lexiscan injection 100 134/76 SOB resolved, SpO2 98%, THOMAS 4/10, midsternal pounding fe eling 6 min post Lexiscan injection 80 148/74 THOMAS 8/10, mild nausea, pounding resolved Walking Lexiscan completed. Pt felt a midsternal pounding sensation after returning to supine posit ion for recovery, quickly resolved. Although THOMAS increased during recovery period, pt stated she felt alright and planned to have caffeine after completion of test. MPI Conclusion Ejection fraction was 67% with stress. There were no wall motion abnormalities. There was no evidence of ischemia on the imaging portion of the exam. This represents a normal SPECT stress test. Radiologist Interpretation Radiologist Interpretation by: Marvel Rodriguez MD Interpretation Date/Time: 04/16/2021 16:00:06
[2021-04-16] MEDS: Regadenoson 0.4 MG/5 ML SYR IVP (10:05)
== END 2021-04-16 02:31 ==
PROVIDERS: PCP Internal Medicine; Visit Provider Internal Medicine
DX: R07.9 Chest pain, unspecified (principal); I10 Essential (primary) hypertension; F17.210 Nicotine dependence, cigarettes, uncomplicated; Z82.49 Family history of ischemic heart disease and other diseases of the circulatory system
CPT/HCPCS: 36415; 78452; 93016; 93018; 83880; 93017; J2785

== ENCOUNTER 2021-04-16 03:51 | Outpatient (CLI) | payer MEDICARE, OTHER, SELFPAY ==
[2021-04-16 12:09] LABS: NT-proBNP 269 pg/mL (<300)
== END 2021-04-16 03:52 | disposition home or self-care (01) ==
LOC: LBO 03:51
PROVIDERS: PCP Internal Medicine; Visit Provider Internal Medicine
DX: R06.02 Shortness of breath (principal)
CPT/HCPCS: 36415; 83880

== ENCOUNTER 2021-05-01 01:39 | Outpatient (CLI) | payer MEDICARE, OTHER, SELFPAY ==
--- NOTE | 2021-05-01 07:39 | DI.US_ITS ---
APPROVED REPORT EXAM: Comprehensive 2D, Doppler, and color-flow Echocardiogram Patient Location: Out-Patient Sebd Teacher: Aniya Beaulieu RDCS (AE) Indications: Evaluate cardiac function, Acute ischemic heart disease, SOB Other Information Study Quality: Adequate Conclusion Normal left ventricular wall thickness and chamber size. Estimated ejection fraction is 55%. Wall m otion is normal. Normal right ventricular size and systolic function Both atria are normal in size The aortic valve is mildly sclerotic and trileaflet. There is no aortic stenosis or regurgitation Mild mitral annular calcification. Mild mitral regurgitation Normal tricuspid valve with trace to mild regurgitation Normal pulmonic valve with trace regurgitation Wall motion Left Ventricle The left ventricle is normal size. The left ventricular systolic function is normal. The left ventric ular ejection fraction is within the normal range. There is normal left ventricular wall thickness. T here is normal LV segmental wall motion. There is no ventricular septal defect visualized. LVEF is 55 %. Right Ventricle The right ventricle is normal size. The right ventricular systolic function is normal. The RVSP is 26 .3 mmHg. Atria The left atrium size is normal. The right atrium size is normal. The interatrial septum is intact wit h no evidence for an atrial septal defect. Aortic Valve Mild aortic valve sclerosis. Aortic valve is trileaflet. There is no aortic valvular stenosis. No aor tic regurgitation is present. Mitral Valve The mitral valve is normal in structure. Mild mitral annular calcification. No evidence of mitral edu ve stenosis. Mild mitral regurgitation. Tricuspid Valve The tricuspid valve is normal in structure. There is no tricuspid valve stenosis. Trace to mild tricu spid regurgitation. Pulmonic Valve The pulmonary valve is normal in structure. There is no pulmonic valvular stenosis. Trace pulmonic re gurgitation. Great Vessels The aortic root is normal in size. Ascending aorta is not well visualized. Aortic arch is normal in c aliber. IVC is normal in size and collapses >50% with inspiration. Pericardium There is no pericardial effusion. 2D Dimensions IVSD d PLAX 0.81 cm F: 0.6-1.0 LV Vol A2C d MOD 76.8 mL LVPW d PLAX 0.81 cm F: 0.6 - 1.0 LV Vol A4C d MOD 72.5 mL LVID d PLAX 4.49 cm F: 3.8 - 5.2 LA vol/ BSA A2C s A-L 26.6 mL/m2 LVDs 3.15 cm F: 2.2 - 3.5 LA vol/ BSA A4C s A-L 18.0 mL/m2 Ao Root d 2.84 cm F: 2.7 - 3.3 LA Vol/ BSA Biplane s A-L 23.0 mL/m2 LV EF Teichholz 56.8 % LA Area A4C s MOD 12.10 cm2 LVEF (Girard's) 55.47 % F: 54 - 74 LA Area A2C s MOD 14.00 cm2 LV Volume 63.83 mL F: 46 - 106 LV EF A4C MOD 54.7 % LV Volume Index 41.18 mL/m2 F: 29 - 61 LV EF A2C MOD 55.9 % LV Vol Biplane MOD 77.6 mL LV EF Biplane MOD 55.5 % FS 29.60 % SV 43.06 mL SV Index 27.75 mL/m2 M-Mode TAPSE 2.23 cm (M/F) >1.7 LV Diastology MV E' medial 0.062 (>0.07 m/s) E/A Ratio 0.9 LV E/e MED 11.25 (<14) MV E Vmax 0.70 (0.4-1.3 m/s) MV E' lateral 0.076 (>0.1 m/s) MV A Vmax 0.75 (0.4-1.3 m/s) LV E/e LAT 9.20 (<14) MV E/A Ratio 0.89 MV E/E' medial 11.28 MV E/E' lateral 9.22 Aortic Valve LVOT Area 3.25 cm2 AoV Area Vmax 2.16 cm2 LVOT Vmax 0.87 m/s AoV Area/ BSA (Vmax) 1.40 cm2/m2 LVOT Mean Lenin. 0.56 m/s JAVIER Mean Lenin. 2.09 cm2 LVOT Peak Grad 3.1 mmHg JAVIER Mean Lenin. Index 1.35 cm2/m2 LVOT Mean Grad 1.5 mmHg LVOT VTI 0.180 m LVOT Diam s 2.00 cm AoV Vmax 1.31 m/s Velocity Ratio 0.66 AoV Mean Lenin. 0.87 m/s AoV Peak Grad 6.9 mmHg LVOT SV 58.60 mL AoV Mean Grad 3.4 mmHg AoV VTI 0.262 m AoV Area VTI 2.23 cm2 AoV Area/ BSA (VTI) 1.44 cm/m2 Mitral Valve MV DT 247 (160-240 msec) MR Vmax 3.42 m/s MV PHT 72 msec MR VTI 1.236 m MV Area PHT 3.07 cm2 MR Peak Grad 46.8 mmHg MV VTI 0.265 m MR Mean Grad 33.1 mmHg MV VTI Annulus 0.265 m MR PISA Radius 0.39 cm MV Area VTI 2.21 (4.0-6.0 cm2) MR EROA 0.10 cm2 MR Aliasing Velocity 0.35 m/s MR PISA 0.97 cm2 Pulmonary Valve PV Vmax 0.87 (0.5-1.5 m/s) RVOT Peak Gr. 1.87 mmHg PV Peak Grad 3.0 mmHg RVOT Mean Gr. 1.00 mmHg PV Mean Grad 1.4 mmHg RVOT VTI 0.124 m PV VTI 0.154 m RVOT Vmax 0.68 m/s Tricuspid Valve TR Peak Grad 23.2 mmHg TR Vmax 2.41 m/s RA Pressure 3.00 mmHg RVSP (TR) 26.3 mmHg
== END 2021-05-01 01:59 ==
PROVIDERS: PCP Internal Medicine; Visit Provider Student in an Organized Health Care Education/Training Program
DX: I24.9 Acute ischemic heart disease, unspecified (principal); R06.02 Shortness of breath; I65.29 Occlusion and stenosis of unspecified carotid artery
CPT/HCPCS: 93306

== ENCOUNTER → 2021-05-03 12:52 | Outpatient (BNVA) | payer MEDICARE, OTHER, SELFPAY | PROVIDERS: PCP Internal Medicine; Referring Provider Internal Medicine; Visit Provider Internal Medicine Cardiovascular Disease | DX: I25.10 Atherosclerotic heart disease of native coronary artery without angina pectoris (principal); I73.9 Peripheral vascular disease, unspecified; I44.7 Left bundle-branch block, unspecified; F17.210 Nicotine dependence, cigarettes, uncomplicated; F32.9 Major depressive disorder, single episode, unspecified; G47.00 Insomnia, unspecified | CPT/HCPCS: 99203; 99214 ==

== ENCOUNTER → 2021-05-20 08:56 | Outpatient (BNVA) | payer MEDICARE, OTHER, SELFPAY | PROVIDERS: PCP Internal Medicine; Referring Provider Internal Medicine; Visit Provider Surgery | DX: K21.9 Gastro-esophageal reflux disease without esophagitis (principal); K59.04 Chronic idiopathic constipation; G44.209 Tension-type headache, unspecified, not intractable | CPT/HCPCS: 99212; 99214 ==

== ENCOUNTER → 2021-06-03 09:53 | Outpatient (BNVA) | payer MEDICARE, OTHER, SELFPAY | PROVIDERS: PCP Internal Medicine; Referring Provider Student in an Organized Health Care Education/Training Program; Visit Provider Nurse Practitioner Adult Health | DX: R41.3 Other amnesia (principal); G44.209 Tension-type headache, unspecified, not intractable; J43.9 Emphysema, unspecified; I25.10 Atherosclerotic heart disease of native coronary artery without angina pectoris; F41.8 Other specified anxiety disorders | CPT/HCPCS: 99204; 99215 ==

== ENCOUNTER 2021-06-06 04:24 | Outpatient (CLI) | payer MEDICARE, OTHER, SELFPAY ==
[2021-06-06 10:31] LABS: NT-proBNP 277 pg/mL (<300)
[2021-06-06 10:50] LABS: TSH 1.82 uIU/mL (0.36-3.74); Vitamin B12 318 pg/mL (193-986)
== END 2021-06-06 04:25 | disposition home or self-care (01) ==
LOC: LBO 04:24
PROVIDERS: Student in an Organized Health Care Education/Training Program; PCP Internal Medicine; Visit Provider Nurse Practitioner Adult Health
DX: R41.3 Other amnesia (principal); R06.02 Shortness of breath; G44.1 Vascular headache, not elsewhere classified
CPT/HCPCS: 36415; 64405; 82607; 83880; 84443

== ENCOUNTER → 2021-06-18 09:02 | Outpatient (BNVA) | payer MEDICARE, OTHER, SELFPAY | PROVIDERS: PCP Internal Medicine; Referring Provider Internal Medicine; Visit Provider Nurse Practitioner Adult Health | DX: G31.84 Mild cognitive impairment of uncertain or unknown etiology (principal); R51.9 Headache, unspecified | CPT/HCPCS: 99213; 99215 ==

== ENCOUNTER → 2021-06-27 09:01 | Outpatient (BNVA) | payer MEDICARE, OTHER, SELFPAY | PROVIDERS: PCP Internal Medicine; Referring Provider Internal Medicine; Visit Provider Nurse Practitioner Adult Health | DX: R51.9 Headache, unspecified (principal) | CPT/HCPCS: 64405 ==

== ENCOUNTER → 2021-09-25 10:26 | Outpatient (BNVA) | payer MEDICARE, OTHER, SELFPAY | PROVIDERS: PCP Internal Medicine; Referring Provider Internal Medicine; Visit Provider Surgery | DX: R19.7 Diarrhea, unspecified (principal) | CPT/HCPCS: 99212 ==

== ENCOUNTER 2021-11-06 02:33 | Outpatient (CLI) | payer MEDICARE, OTHER, SELFPAY ==
[2021-11-06 08:36] LABS: Anion Gap 8.3 mmol/L (3-11); BUN 12 mg/dL (7-18); CO2 28.7 mmol/L (21.0-32.0); CREATININE 1.1 mg/dL (0.55-1.02); Calcium 9.3 mg/dL (8.5-10.1); Calculated LDL 57 mg/dL (<100); Chloride 105 mmol/L (98-107); Cholesterol 181 mg/dL (<200); Estimated GFR 48.69 (mL/min/1.73m2); Glucose 100 mg/dL (74-106); HDL Cholesterol 113 mg/dL (40-60); Potassium 4.4 mmol/L (3.5-5.1); Sodium 142 mmol/L (136-145); Triglyceride 59 mg/dL (<150)
== END 2021-11-06 02:34 | disposition home or self-care (01) ==
LOC: LBO 02:33
PROVIDERS: PCP Internal Medicine; Visit Provider Internal Medicine
DX: Z00.00 Encounter for general adult medical examination without abnormal findings (principal); Z13.1 Encounter for screening for diabetes mellitus; Z13.6 Encounter for screening for cardiovascular disorders
CPT/HCPCS: 36415; 80048; 80061

== ENCOUNTER 2021-11-11 00:39 | Outpatient (CLI) | payer MEDICARE, OTHER, SELFPAY ==
--- NOTE | 2021-11-11 07:45 | DI.MAMMO_ITS ---
Exam(s) MAMMO SCREENING EXAM: MAMMO SCREENING CLINICAL HISTORY: screening,z12.39 TECHNIQUE: Mammograms were interpreted according to the usual protocol including computer analysis w [employer] CAD system, tomosynthesis and C-view imaging. COMPARISON: 2012 through 2019 FINDINGS: The breasts are composed of scattered fibroglandular densities, Breast Density category B. No suspicious masses or suspicious microcalcifications are seen. No skin thickening or abnormal axillary lymph nodes are seen. There has been no significant change from prior exams. IMPRESSION: BI-RADS Category 1, Negative mammogram Yearly screening mammography is recommended. Breast Density - Category B, scattered fibroglandular densities. A negative radiographic report should not delay biopsy if a dominant or clinically suspicious mass is present. Up to ten percent of cancers are not identified on mammography. A negative report may reinforce clinical impression. Adenosis and dense breasts may obscure an underlying neoplasm. False positive reports average 6 to 10%. Patient will receive a letter notifying them of these results.
--- NOTE | 2021-11-11 14:51 | DI.CTLCSR_ITS ---
Exam(s) CT CHEST LUNG CANCER SCREEN EXAM: CT CHEST LUNG CANCER SCREEN CLINICAL HISTORY: Screening for lung cancer,current smoker, f17.210 TECHNIQUE: Imaging Protocol: Axial computed tomography images with coronal and sagittal reformatted images were created and reviewed COMPARISON: CT CT CHEST LUNG CANCER SCREEN from 10/22/[address] CHEST LUNG CANCER SCREEN from 10/22/[address] CHEST PE CTA from 04/03/2021 FINDINGS: Tracheobronchial tree: Patent where visualized. Mediastinum and Ashlie: No dominant adenopathy or fluid collection. Pulmonary parenchyma: No consolidation or dominant measurable mass. Mild to moderate emphysematous an d fibrotic changes. Lung Nodules: Stable left perifissural nodule. Pleura: No effusion or pneumothorax. Heart: The heart is not dilated. coronary artery calcifications are seen. Aorta: Thoracic aorta non-dilated. Upper abdomen: Unremarkable. Bones: Within normal limits for age. Soft Tissues: Unremarkable. IMPRESSION: No suspicious pulmonary nodules. Mild to moderate emphysematous and fibrotic changes. Lung RADS Cat 2 - Benign Appearance / Behavior: Nodules with a very low likelihood of becoming a clin ically active cancer due to size or lack of growth Lung-RADS 1.0 CATEGORIES: Category 0 - Prior chest CT exam(s) being located for comparison. Category 1 - Annual screening in 12 months. No nodules or definitely benign nodules. Category 2 - Annual screening in 12 months. Benign appearance. Nodules with low likelihood of becomin g active cancer. Category 3 - 6-month follow-up. Probably benign. Short-term follow-up suggested. Nodules with low lik elihood of becoming active cancer. Category 4A - 3-month follow-up and CT/PET if >8 mm in size. Suspicious finding. Findings which requi re additional testing. Category 4B - Findings which require additional testing and tissue sampling. Modifier S- Potentially clinically significant findings (non lung cancer) RADIATION DOSE DELIVERED: 87.95mGy.cm Total DLP 1.84mGy CTDIvol DATA REPOSITORY: All CT scans at this facility are submitted to the National Radiology Data Registry (NRDR) Dose Index Registry (DIR) with the [employer] (A[employer]). RADIATION OPTIMIZATION: All CT scans at this facility use at least one of these dose optimization te chniques: automated exposure control; mA and/or kV adjustment per patient size (includes targeted exa ms where dose is matched to clinical indication); or iterative reconstruction.
== END 2021-11-11 00:59 ==
PROVIDERS: PCP Internal Medicine; Visit Provider Internal Medicine
DX: Z12.31 Encounter for screening mammogram for malignant neoplasm of breast (principal); Z12.2 Encounter for screening for malignant neoplasm of respiratory organs; F17.210 Nicotine dependence, cigarettes, uncomplicated; J98.4 Other disorders of lung; R91.1 Solitary pulmonary nodule
CPT/HCPCS: 71271; 77063; 77067

== ENCOUNTER → 2021-11-18 11:27 | Outpatient (BNVA) | payer MEDICARE, OTHER, SELFPAY | PROVIDERS: PCP Internal Medicine; Referring Provider Internal Medicine; Visit Provider Surgery | DX: R19.4 Change in bowel habit (principal); R10.9 Unspecified abdominal pain | CPT/HCPCS: 99212; 99214 ==

== ENCOUNTER 2021-11-20 02:58 | Outpatient (CLI) | payer MEDICARE, OTHER, SELFPAY ==
[2021-11-20 12:14] LABS: Source Nasal/Nares
[2021-11-20 15:16] LABS: COVID-19 PCR Negative (Negative)
== END 2021-11-20 02:59 | disposition home or self-care (01) ==
LOC: LBO 02:58
PROVIDERS: PCP Internal Medicine; Visit Provider Surgery
DX: Z20.822 Contact with and (suspected) exposure to COVID-19 (principal)
CPT/HCPCS: 87635

== ENCOUNTER 2021-11-22 06:16 | Day surgery (SDC) | payer MEDICARE, OTHER, SELFPAY ==
--- NOTE | 2021-11-21 12:09 | PDOC.DSDIS_ITS ---
Discharge Plan Disposition Patient Disposition: HOME Condition: Good Discharge Details Reason For Visit: colon scope Attending Provider: Liz Johnson Primary Care Provider: Ayah Albrecht Home Meds and New Rx's Prescriptions: Continued ibuprofen [Advil] 200 mg tablet 600 mg PO Q6H PRNRF: 0 gabapentin [Neurontin] 600 mg tablet 600 mg PO HS Qty: 90 RF: 3 bupropion HCl 100 mg tablet sustained-release 12 hr 100 mg PO DAILY Qty: 90 RF: 2 rosuvastatin [Crestor] 10 mg tablet 10 mg PO DAILY RF: 0 melatonin 5 mg capsule 5 mg PO HS RF: 0 calcium carbonate-vitamin D3 [Caltrate with Vitamin D3] 1 EACH tablet 1 ea PO BID RF: 0 aspirin [Adult Low Dose Aspirin] 81 mg tablet,delayed release (DR/EC) 81 mg PO DAILY RF: 0 duloxetine 20 mg capsule,delayed release(DR/EC) 20 mg PO DAILY Qty: 90 RF: 3 acetaminophen [Pain Reliever Extra Strength] 500 MG tablet 1,000 mg PO PRN PRNRF: 0 Discontinued polyethylene glycol 3350 17 gram/dose powder 238 g PO ONCE Qty: 238 RF: 0 bisacodyl [Dulcolax (bisacodyl)] 5 mg tablet,delayed release (DR/EC) 5 mg PO ONCE Qty: 4 RF: 0 Discharge Instructions Additional Instructions: DSU Colonoscopy Post- Op Instructions Instructions for Everyone who is given Anesthesia: For your safety, please do the following for the next twenty-four (24) hours: *Do Not operate a motor vehicle (car, truck, motorcycle, etc.) *Do Not drink alcoholic beverages or use any recreational drugs for the first 24 hours or while taking pain medications. The medications in your body may have a reaction that can be dangerous. *Do Not make any important decisions or sign any important papers. Findings:normal mild internal hemorrhoids Follow up: My office will send a letter in 3 to 4 weeks time detailing the results of the biopsies. Metamucil 2 tsp in 8oz water/juice twice a day. 1. No lifting over 20 pounds or strenuous activity for the first 24 hours after your procedure. After 24 hours there are no restrictions on your activity but you may feel fatigued for a few days. 2. After you arrive home you may have a light meal and return to your normal diet as you can tolerate it without feeling sick to your stomach. 3. You may have a bloated, gaseous feeling in your belly (abdomen) after a colonoscopy. Passing gas and belching will help. Walking or lying down on your left side with your knees flexed may relieve the discomfort. Call the office at [phone] (Office) or [phone] (Hospital) right away if you notice any of the following: a.Vomiting of blood or ?coffee ground stools?. b.Rectal bleeding 1Tbsp, blood clots or continuous bleeding. c.Severe belly (abdominal) pain. d.A hard distended belly (abdomen) and an inability to pass gas. 4. Please don?t expect to have a normal BM (bowel movement) for 2-3 days after your procedure. 5. If there are questions regarding the findings of your procedure, please contact your doctor 6. If you are unable to contact your doctor with a problem, contact the hospital at [phone]. 7. Continue all your regular medications unless directed otherwise. I understand the above instructions and have no questions. Signature of Patient or Adult Escort Name of Responsible Adult Escort Signature of Nurse Date/Time Activity:: see above Discharge Orders Discharge Orders: Discharge Order (Routine); Ordered 11/21/21 Ordered By: Liz Johnson DS: Diagnosis Discharge Diagnosis (1) Abdominal pain: Status: Acute (2) Encounter for diagnostic colonoscopy due to change in bowel habits: Status: Acute
--- NOTE | 2021-11-21 12:09 | W.COLOREPORT ---
Colonoscopy Report Date of procedure: 11/22/21 Pre-op diagnosis general: abdominal pain/change in bowel habits Surgeon: Liz Johnson Anesthesia Type: General LMA/ETT Estimated blood loss (mL): 1 Pathology: other Complications: None Disposition: same day Prep: Miralax/Dulcolax Retraction Time: 9 Procedure Description: After informed consent was obtained the patient was taken to the procedure room and placed in a left decubitous position. Monitors were applied and a time out was done. The patients name, date of , procedure, allergies to medications and metal in their body was reviewed. The patient was then sedated. Once sedated and comfortable a rectal exam was done. External exam was normal. Internal exam revealed a normal sphincter tone and no palpable masses. The scope was then introduced and retrofelexed. Garde I internal hemorrhoids x2 were identified. The scope was then advanced to the cecum w/out difficulty. The TI and appendiceal orifice were identified. The prep was good. The scope was then slowly retracted over 9 minutes back into the rectum. There were no polyps/AVM's/diverticula noted. The scope was removed and the patient was woken up and taken back to Same day surgery in stable condition. B/c of her chronic abdominal issues- bx were taken in cecum/80/60/30cm/rectum. All vx were obtained and no bleeding was noted. The patient tolerated the procedure well and there were no immediate complications. Follow up: The patient does not require further routine screening screening colonoscopiy's, unless they develop changes in bowel habits or other new gastrointestinal complaints.
[2021-11-22 06:30] VITALS: BP 123/72; PULSE 80; RESP 18; TEMP 36.4; O2SAT 96
[2021-11-22] MEDS: Lactated Ringers 1,000 ML 80 ML IV (06:50)
--- NOTE | 2021-11-22 07:15 | W.ANESPRE ---
General Info Date of Service Date Performed: 11/22/21 Height: 5 ft 3 in Weight: 54.3 kg Body Mass Index (BMI): 21.2 Surgical Procedure: Operation Date: 11/22/21 07:35 Proposed Procedures Side Surgeon kaylan Johnson, DO Meds Allergies and Home Medications Allergies Allergy/AdvReac Type Severity Reaction Status Date / Time Sulfa (Sulfonamide Allergy Intermediate swelling, Verified 11/22/21 06:38 Antibiotics) hives, itching oxycodone HCl [From Percocet] Allergy Unknown unknown Verified 11/22/21 06:38 cilostazol AdvReac Intermediate Diarrhea Verified 11/22/21 06:38 omeprazole AdvReac Intermediate bloating, Verified 11/22/21 06:38 itching diarrhea, varenicline tartrate AdvReac Intermediate Anxiety/hea Verified 11/22/21 06:38 [From Chantix] dache/dopin ess. Home Medication Medication Instructions Recorded calcium carbonate-vitamin D3 1 ea PO BID 04/07/17 [Caltrate with Vitamin D3] acetaminophen [Pain Reliever Extra 1,000 mg PO PRN PRN 05/25/18 Strength] ibuprofen 200 mg tablet 600 mg PO Q6H PRN tab 06/19/20 aspirin 81 mg tablet,delayed 81 mg PO DAILY 04/24/21 release rosuvastatin 10 mg tablet 10 mg PO DAILY 06/03/21 duloxetine 20 mg capsule,delayed 20 mg PO DAILY #90 cap 07/09/21 release melatonin 5 mg capsule 5 mg PO HS cap 07/31/21 gabapentin 600 mg tablet 600 mg PO HS #90 tab 10/29/21 bisacodyl 5 mg tablet,delayed 5 mg PO ONCE #4 tab 11/18/21 release polyethylene glycol 3350 17 238 g PO ONCE #238 g 11/18/21 gram/dose oral powder bupropion HCl 100 mg tablet,12 hr 100 mg PO DAILY #90 tab 11/19/21 sustained-release Current Visit Medications: Current Medications Generic Name Dose Route Start Last Admin Trade Name Freq PRN Reason Stop Dose Admin Hyoscyamine Sulfate 0.125 mg 11/21/21 12:08 Hyoscyamine 0.125 Mg Sl/Oral/Chew SL DIRECTED PRN Ringer's Solution 1,000 mls @ 80 mls/hr 11/22/21 06:00 11/22/21 06:50 IV 01/31/22 23:59 80 mls/hr INFUSION TANA Administration IV Miscellaneous Supplies 1 each 11/22/21 06:00 Iv Access IV 12/09/21 23:59 DIRECTED TANA Ondansetron HCl 4 mg 11/21/21 12:08 Ondansetron 4 Mg/2 Ml Vial IVP Q4H PRN PRN Nausea / Vomiting Sodium Chloride 0 ml 11/22/21 06:00 Normal Saline Flush 10 Ml Syr IV 12/09/21 23:59 PRN PRN Sodium Chloride 0 ml 11/22/21 06:00 Normal Saline 10 Ml Vial IJ 12/09/21 23:59 DIRECTED PRN Sterile Water 0 ml 11/22/21 06:00 Water,Injection,Sterile 10 Ml Vial IJ 12/09/21 23:59 DIRECTED PRN PFSH Active Problems Active Problems: Problem Status Onset Code Encounter for diagnostic colonoscopy due to change in bowel habits R19.4 Abdominal pain R10.9 Mild cognitive impairment G31.84 GERD (gastroesophageal reflux disease) 08/21/14 K21.9 Depression 06/12/16 F32.9 Anxiety 11/13/11 F41.9 Chronic daily headache R51.9 Left bundle branch block (LBBB) I44.7 Atherosclerotic cardiovascular disease I25.10 Peripheral vascular disease, unspecified 04/24/21 I73.9 Chest pain R07.9 Lumbar radicular syndrome M54.16 Tobacco dependence 11/13/11 F17.200 Spinal stenosis, lumbar region, with neurogenic claudication 11/13/11 M48.062 Pulmonary emphysema 06/12/16 J43.9 Osteoporosis 11/13/11 M81.0 Myalgia and myositis 11/13/11 Irritable colon 11/13/11 K58.9 Carotid artery occlusion 11/13/11 I65.29 Medical History Medical History Essential hypertension (11/13/11) Fibromyalgia Non-cardiac chest pain (05/01/15) Peripheral arterial disease Restless leg SOB (shortness of breath) on exertion Significant worsening x weeks, 03/2021 TTH (tension-type headache) Vulvar pruritus Not responsive to topical estrogen. 09/2019 patient treated with clobetasol cream 11/2019 symptoms improving we will continue twice weekly Surgical History Surgical History Abdominal hysterectomy Colonoscopy - IV Sedation (07/07/14) Dr. Kt Nava, Both Tobacco Smoking/Tobacco Use Status: Current every day Tobacco Type: cigarettes Smoking cigarettes per day: 5 Tobacco: How many years used: 50 Quit Status: quit date established Alcohol Alcohol Intake: current Alcohol intake frequency: holidays/special occasions only Alcohol type: beer Substance Use Substance use: Never Substance use type: does not use Vital Signs and Lab Results Vital Signs Most Recent Vital Signs in EMR: Most Recent Vital Signs Temp Pulse Resp BP Pulse Ox 36.4 C L 80 18 123/72 96 11/22/21 06:30 11/22/21 06:30 11/22/21 06:30 11/22/21 06:30 11/22/21 06:30 Lab Results Blood Type / Crossmatch: No Data to Display Complete Blood Count: No Data to Display Complete Metabolic Panel: Sodium Level 142 mmol/L (136-145) 11/06/21 07:36 11/06/21 Potassium Level 4.4 mmol/L (3.5-5.1) 11/06/21 07:36 11/06/21 Chloride Level 105 mmol/L (98-107) 11/06/21 07:36 11/06/21 Carbon Dioxide Level 28.7 mmol/L (21.0-32.0) 11/06/21 07:36 11/06/21 Blood Urea Nitrogen 12 mg/dL (7-18) 11/06/21 07:36 11/06/21 Creatinine 1.1 mg/dL (0.55-1.02) H 11/06/21 07:36 11/06/21 Estimated GFR/1.73 m2 48.69 (mL/min/1.73m2) 11/06/21 07:36 11/06/21 Calcium Level 9.3 mg/dL (8.5-10.1) 11/06/21 07:36 11/06/21 Glucose Level 100 mg/dL (74-106) 11/06/21 07:36 11/06/21 Liver Function Panel: No Data to Display Coagulation Panel: No Data to Display Cardiac Panel: No Data to Display Arterial Blood Gas: No Data to Display Venous Blood Gas: No Data to Display Pancreas Panel: No Data to Display Thyroid Panel: No Data to Display Infectious Disease: Coronavirus (COVID-19)(PCR) Negative (Negative) 11/20/21 09:59 11/20/21 Coronavirus 2019 Source Nasal/Nares 11/20/21 09:59 11/20/21 Blood Cultures: No Data to Display Toxicology Panel: No Data to Display Imaging and Studies Imaging and Studies Study information below may be from another EMR and interpreted by another provider. Please see original notes in EMR for more complete details. EKG Summary: 03/2021: Exam: Resting ECG Reason for Exam: sob Patient Location: E HR:60 bpm ECG Measurements Heart Rate 60 AXIS KS 193 P 76 QRSd 134 QRS -27 QT 455 T99 QTc 456 Conclusion Sinus rhythm...normal P axis, V-rate 60- 99 Left bundle branch block...QRSd>120, broad/notched R I have reviewed and I agree with the emergency room physician's ECG interpretation. Stress Test Summary: 04/2021: MPI Conclusion Ejection fraction was 67% with stress. There were no wall motion abnormalities. There was no evidence of ischemia on the imaging portion of the exam. This represents a normal SPECT stress test. Echocardiogram Summary: 04/2021: Conclusion Normal left ventricular wall thickness and chamber size. Estimated ejection fraction is 55%. Wall motion is normal. Normal right ventricular size and systolic function Both atria are normal in size The aortic valve is mildly sclerotic and trileaflet. There is no aortic stenosis or regurgitation Mild mitral annular calcification. Mild mitral regurgitation Normal tricuspid valve with trace to mild regurgitation Normal pulmonic valve with trace regurgitation Carotid Artery Summary:: 04/2017: IMPRESSION: Mild calcific plaque. No evidence of a significant internal carotid artery stenosis Anesthesia Assessment and Plan Anesthesia History Personal History: No History of Anesthesia Complications Family History: No Family History of Anesthesia Complications Exercise Tolerance Exercise Tolerance: Metabolic Equivalents<4 Pertinent Negatives Pertinent Negatives: No Major Cardiovascular Symptoms or Complaints Cardiac & Pulmonary Exam Cardiac Exam: Normal S1/S2 Heart Sounds Pulmonary Exam: Clear Bilateral Breath Sounds Implantable Cardiac Device Does patient have a Pacemaker or an ICD?: No Airway Exam Known Difficult Airway: No Mallampati Class: 3 Mouth Opening: Normal (> 3cm) Thyromental Distance: Greater than 3 cm Neck Range of Motion: Full ROM Neck Circumference: Normal Teeth Condition: Normal Dentition ASA Classification ASA Score: ASA 3 Emergency Case?: No NPO Status NPO Status: NPO Clears >2 hours, Solids >8 hours Anesthesia Plan Resuscitation Status: Full Code Anesthesia Technique: General Anesthesia Airway Planned: Natural Airway Monitors Used: Standard Monitors
[2021-11-22 07:19] VITALS: BMI 21.2
--- NOTE | 2021-11-22 07:53 | BOWEL_PTH ---
PATIENT: Floridalma Ibarra LOC: [facility] U#:[id number] AGE/SX: 71/F ROOM: RE11/22/[address]: Liz Johnson : 1950 BED: DIS: 11/22/2021 SPEC #: [id number] RECD: 11/22/21 12:49 STATUS: DORENE RE #: [id number] HORTENCIA: 11/22/21 07:[address]: Liz Johnson DEPT: Surgical Specimen RECD BY: Didi Suarez ENTERED: 11/22/21 12:50 SP TYPE: Bowel OTHR DR: Ayah Albrecht MD Tissues: 1 - BIOPSY BOWEL 2 - BIOPSY BOWEL 3 - BIOPSY BOWEL 4 - BIOPSY BOWEL 5 - BIOPSY BOWEL Procedures: GROSS AND MICRO LEVEL 4 Comments: [id number]
[2021-11-22 08:10] VITALS: BP 104/72; PULSE 67; RESP 16; TEMP 36.1; O2SAT 99
--- NOTE | 2021-11-22 08:20 | W.ANESPOSTOP ---
Postoperative Evaluation Date, Time and Location Date Performed: 11/22/21 Time Performed: 08:20 Patient Location: Day Surgery Unit Vital Signs Most Recent Imported Vital Signs: Most Recent Vital Signs Temp Pulse Resp BP Pulse Ox 36.4 C L 80 18 123/72 96 11/22/21 06:30 11/22/21 06:30 11/22/21 06:30 11/22/21 06:30 11/22/21 06:30 Pain Score Most Recent Pain Score: Most Recent Pain Score Pain Level 5 11/22/21 06:30 Assessment Mental Status: Awake (Alert & Oriented to Patient Baseline) Airway and Respiratory Function: Patent airway with normal (patient baseline) respiratory exam Cardiovascular Function: Hemodynamically Stable Hydration Status: Adequately Hydrated Nausea & Vomiting: No Nausea or Vomiting Pain: Pt. Denies Any Pain Peripheral Nerve Block: Patient did not receive a nerve block
[2021-11-22 08:38] VITALS: BP 130/63; PULSE 66; RESP 17; TEMP 36.3; O2SAT 100
== END 2021-11-22 08:50 | disposition home or self-care (01) ==
PROVIDERS: PCP Internal Medicine; Visit Provider Surgery
PROC: 0DJD8ZZ Inspection of Lower Intestinal Tract, Via Natural or Artificial Opening Endoscopic (ICD-10-PCS; CPT 45378; principal; 2021-11-22 07:30)
DX: R19.4 Change in bowel habit (principal); K52.832 Lymphocytic colitis; K64.0 First degree hemorrhoids; R10.9 Unspecified abdominal pain
CPT/HCPCS: 45380; 88305; J2001

== ENCOUNTER → 2021-12-02 10:26 | Outpatient (BNVA) | payer MEDICARE, OTHER, SELFPAY | PROVIDERS: PCP Internal Medicine; Referring Provider Internal Medicine; Visit Provider Surgery | DX: Z48.815 Encounter for surgical aftercare following surgery on the digestive system (principal); K52.831 Collagenous colitis | CPT/HCPCS: 99213 ==

== ENCOUNTER → 2021-12-23 12:32 | Outpatient (BNVA) | payer MEDICARE, OTHER, SELFPAY | PROVIDERS: PCP Internal Medicine; Referring Provider Internal Medicine; Visit Provider Nurse Practitioner Adult Health | DX: G31.84 Mild cognitive impairment of uncertain or unknown etiology (principal); R51.9 Headache, unspecified; F41.9 Anxiety disorder, unspecified | CPT/HCPCS: 99213; 99214 ==

== ENCOUNTER 2021-12-24 02:26 | Outpatient (CLI) | payer MEDICARE, OTHER, SELFPAY ==
[2021-12-25 09:53] LABS: Ferritin 103 ng/mL (10-291)
== END 2021-12-24 02:27 | disposition home or self-care (01) ==
LOC: LBO 02:26
PROVIDERS: PCP Internal Medicine; Visit Provider Nurse Practitioner
DX: M25.561 Pain in right knee (principal)
CPT/HCPCS: 36415; 82728

== ENCOUNTER 2022-04-12 12:00 | Outpatient (REF) | payer MEDICARE, OTHER, SELFPAY ==
[2022-04-14 14:48] LABS: COVID-19 RT-PCR UVMMC Result Negative (Negative)
== END 2022-04-12 12:01 | disposition home or self-care (01) ==
LOC: LBN 12:00
PROVIDERS: PCP Internal Medicine; Visit Provider Physician Assistant Medical
DX: Z20.822 Contact with and (suspected) exposure to COVID-19 (principal); J06.9 Acute upper respiratory infection, unspecified
CPT/HCPCS: U0003

== ENCOUNTER 2022-04-15 15:54 | Outpatient (CLI) | payer MEDICARE, OTHER, SELFPAY ==
[2022-04-15 10:56] LABS: Abs Immature Grans 0.02 10^3/uL (0.0-0.06); Absolute Basophil Count 0.06 10^3/uL (0.0-0.2); Absolute Eosinophil Count 0.22 10^3/uL (0.0-0.7); Absolute Lymphocyte Count 1.34 10^3/uL (1.2-3.4); Absolute Monocyte Count 0.61 10^3/uL (0.1-0.8); Absolute Neutrophil Count 4.35 10^3/uL (1.2-6.7); Basophils % 0.9; Eosinophils % 3.3; HCT 38.5 % (36.0-46.0); HGB 12.8 g/dL (11.2-15.7); Immature Grans % 0.3; Lymphocytes % 20.3; MCH 30.4 pg (27.0-33.0); MCHC 33.2 % (32.0-36.0); MCV 91 fL (80-95); MPV 9.3 fL (8.0-11.0); Monocytes % 9.2; Platelet Count 254 10^3/uL (130-400); RBC 4.21 10^6/uL (3.93-5.22); RDW 13.2 % (11.7-14.6); RDW-SD 44.3 fL
[2022-04-15 11:10] LABS: ALT 25 U/L (14-59); AST 31 U/L (15-37); Albumin 3.3 g/dL (3.4-5.0); Alkaline Phosphatase 121 U/L (46-116); BUN 10 mg/dL (7-18); Bilirubin, Total 0.3 mg/dL (0.2-1.0); CREATININE 0.9 mg/dL (0.55-1.02); Calcium 8.8 mg/dL (8.5-10.1); Chloride 102 mmol/L (98-107); Glucose 90 mg/dL (74-106); Potassium 4.1 mmol/L (3.5-5.1); Sodium 137 mmol/L (136-145); Total Protein 7.2 g/dL (6.4-8.2)
[2022-04-15 11:37] LABS: Mono Screening Negative (Negative)
[2022-04-16 10:01] LABS: Lyme Ab w Rflx to Lyme Confirm Negative (Negative)
[2022-04-18 00:02] LABS: Anaplasma phagocytophilum Negative (Negative); B. miyamotoi PCR Negative (Negative); Babesia divergens/MO-1 Negative (Negative); Babesia duncani Negative (Negative); Babesia microti Negative (Negative); Ehrlichia chaffeensis Negative (Negative); Ehrlichia ewingii/canis Negative (Negative); Ehrlichia muris eauclairensis Negative (Negative)
== END 2022-04-15 15:55 | disposition home or self-care (01) ==
LOC: LBO 15:57
PROVIDERS: PCP Internal Medicine; Visit Provider Internal Medicine
DX: R53.83 Other fatigue (principal); R50.9 Fever, unspecified
CPT/HCPCS: 36415; 80053; 87798; 85025; 86308; 86618

== ENCOUNTER → 2022-06-24 10:31 | Outpatient (BNVA) | payer MEDICARE, OTHER, SELFPAY | PROVIDERS: PCP Internal Medicine; Referring Provider Internal Medicine; Visit Provider Nurse Practitioner Adult Health | DX: R51.9 Headache, unspecified (principal); F41.9 Anxiety disorder, unspecified; F17.210 Nicotine dependence, cigarettes, uncomplicated; G31.84 Mild cognitive impairment of uncertain or unknown etiology | CPT/HCPCS: 64405; 99213 ==

== ENCOUNTER 2022-06-26 11:56 | Outpatient (CLI) | payer MEDICARE, OTHER, SELFPAY ==
--- NOTE | 2022-06-26 11:45 | RT.EKG_ITS ---
APPROVED REPORT Exam: Resting ECG Reason for Exam: Lightheadedness Patient Location: O HR:70 bpm ECG Measurements Heart Rate 70 AXIS LA 194 P 105 QRSd 134 QRS -22 QT 459 T 93 QTc 496 Conclusion Sinus rhythm...normal P axis, V-rate 50- 99 Left bundle branch block...QRSd>120, broad/notched R Multiple premature atrial contractions
== END 2022-06-26 11:57 | disposition home or self-care (01) ==
LOC: DI.KIM 11:57
PROVIDERS: PCP Student in an Organized Health Care Education/Training Program; Visit Provider Nurse Practitioner Family
DX: R42 Dizziness and giddiness (principal); R94.31 Abnormal electrocardiogram [ECG] [EKG]; I44.7 Left bundle-branch block, unspecified
CPT/HCPCS: 93010

== ENCOUNTER → 2022-07-15 13:19 | Outpatient (BNVA) | payer MEDICARE, OTHER, SELFPAY | PROVIDERS: PCP Student in an Organized Health Care Education/Training Program; Referring Provider Student in an Organized Health Care Education/Training Program; Visit Provider Psychiatry & Neurology Neurology | DX: G44.1 Vascular headache, not elsewhere classified (principal); M54.2 Cervicalgia | CPT/HCPCS: 64405 ==

== ENCOUNTER → 2022-08-12 01:27 | Outpatient (CLI) | payer MEDICARE, OTHER, SELFPAY ==
--- NOTE | 2022-08-12 06:45 | DI.RAD_ITS ---
Exam(s) XR CERVICAL SP COMP W FLEX/EXT EXAM: XR CERVICAL SP COMP W FLEX/EXT CLINICAL HISTORY: evaluate joint spaces, curvature,neck pain, m54.2. TECHNIQUE: 2D digital imaging was performed. COMPARISON: No exams were available for comparison FINDINGS: Seven views: There is no evidence of cervical spine fracture. There is degenerative anterolisthesis of C7 upon T1 , with approximately 4 millimeters anterior slippage on the neutral lateral view. With extension thi s increases to approximately 5 millimeters. Similar with flexion. There is no offset of the spinal laminar line. There is moderate disc space narrowing at C 5-6 and C6-7 levels. There are bilateral Luschka joint o steophytes at these levels. Other disc spaces exhibit normal height and no Luschka joint osteophytes . There are mild degenerative changes in the facet joints. This is most prominent at C7-T1 level. There are no cervical ribs. IMPRESSION: Moderate disc space narrowing C5-6 and C6-7 levels and Luschka joint osteophytes bilateral at these 2 levels. Degenerative anterolisthesis of C7 upon T1 due to facet joint arthropathy at C7-T1 level. DATA REPOSITORY: RADIATION DOSE DELIVERED:
--- NOTE | 2022-08-12 06:59 | DI.RAD_ITS ---
Exam(s) XR ARTHRITIS SERIES EXAM: XR ARTHRITIS SERIES CLINICAL HISTORY: evaluate joint space and degenerative dz,ARTHRITIS OF HANDS,M19.049,BILAT P. TECHNIQUE: 2D digital imaging was performed. COMPARISON: No exams were available for comparison FINDINGS: Two views of both hands including AP and [place]aard views. No evidence of fracture or subluxations. No osseous lesions nor erosions. Metacarpophalangeal joint s appear unremarkable as do the 1st carpometacarpal joints of both hands. Visualized carpal row bone s are grossly unremarkable. There are minimal degenerative changes in the interphalangeal joints. N o abnormal soft tissue calcifications. Bone density is age-appropriate. IMPRESSION: No erosions. No prominent osteoarthritic degenerative changes. Bone density is age-appropriate. DATA REPOSITORY: RADIATION DOSE DELIVERED:
== END ==
PROVIDERS: PCP Student in an Organized Health Care Education/Training Program; Visit Provider Student in an Organized Health Care Education/Training Program
DX: M43.13 Spondylolisthesis, cervicothoracic region; M79.641 Pain in right hand; M48.02 Spinal stenosis, cervical region
CPT/HCPCS: 72052; 73120

== ENCOUNTER 2022-09-18 11:45 | Outpatient (CLI) | payer MEDICARE, OTHER, SELFPAY ==
--- NOTE | 2022-09-18 11:45 | RT.EKG_ITS ---
APPROVED REPORT Exam: Resting ECG Reason for Exam: htn Patient Location: O HR:72 bpm ECG Measurements Heart Rate 72 AXIS W[place] 160 P 101 QRSd 128 QRS -33 QT 403 T 130 QTc 442 Conclusion Sinus rhythm...normal P axis, V-rate 50- 99 Left bundle branch block...QRSd>120, broad/notched R
== END 2022-09-18 11:46 | disposition home or self-care (01) ==
LOC: DI.KIM 11:46
PROVIDERS: PCP Student in an Organized Health Care Education/Training Program; Visit Provider Nurse Practitioner
DX: I10 Essential (primary) hypertension (principal); R94.31 Abnormal electrocardiogram [ECG] [EKG]; I44.7 Left bundle-branch block, unspecified
CPT/HCPCS: 93010

== ENCOUNTER → 2022-10-01 10:00 | Outpatient (BNVA) | payer MEDICARE, OTHER, SELFPAY | PROVIDERS: PCP Student in an Organized Health Care Education/Training Program; Referring Provider Student in an Organized Health Care Education/Training Program; Visit Provider Nurse Practitioner Adult Health | DX: R51.9 Headache, unspecified (principal); G31.84 Mild cognitive impairment of uncertain or unknown etiology | CPT/HCPCS: 64405; 99213 ==

== ENCOUNTER 2022-12-01 13:54 | Emergency (ER) | payer MEDICARE, OTHER, SELFPAY ==
--- NOTE | 2022-12-01 13:45 | RT.EKG_ITS ---
APPROVED REPORT Exam: Resting ECG Reason for Exam: chest pain Patient Location: E HR:61 bpm ECG Measurements Heart Rate 61 AXIS MS 202 P 59 QRSd 138 QRS -37 QT 445 T 158 QTc 450 Conclusion Sinus rhythm...normal P axis, V-rate 60- 99 Left bundle branch block...QRSd>120, broad/notched R
[2022-12-01 14:01] VITALS: BP 164/73; PULSE 68; RESP 16; TEMP 37.5; O2SAT 97
--- NOTE | 2022-12-01 14:15 | DI.RAD_ITS ---
Exam(s) XR ABD FLAT UPRIGHT PA CHEST CLINICAL HISTORY: epigastric pain, gassy. COMPARISON: CT CT CHEST LUNG CANCER SCREEN from 11/11/2021 FINDINGS: LUNGS: Clear. No pleural abnormality seen. Leads overlie the chest. Mild hyperinflation. HEART: Normal. MEDIASTINUM: Normal. BOWEL GAS PATTERN: Nondistended bowel loops. No air-fluid levels seen. Moderate quantity of stool. ABNORMAL COLLECTIONS OF AIR: No abnormal collection of air. No pneumoperitoneum. CALCIFICATIONS: Vascular. No radiopaque renal, ureteral, or bladder calcification. OTHER FINDINGS: Degenerative changes in the spine. Mild scoliosis. IMPRESSION: 1. Nonobstructive bowel gas pattern. 2. No acute pulmonary findings.
--- NOTE | 2022-12-01 14:24 | ED.GENADUL_ITS ---
Discharge Plan Disposition Patient Disposition: Home Condition: Good Discharge Details Clinical Impression: Epigastric discomfort, Acid reflux Primary Care Provider: Veronica Meek ED Provider: Jr Durbin Home Meds and New Rx's Prescriptions: New pantoprazole [Protonix] 40 mg tablet,delayed release (DR/EC) 40 mg PO DAILY Qty: 60 0RF Continued albuterol sulfate 90 mcg/actuation HFA aerosol inhaler 1 puff inhalation QID PRN (Reason: shortness of breath or wheezing) Qty: 1 2RF Rx Instructions: 1-2 puffs up to 4 times a day as needed for shortness of breath atenolol 25 mg tablet 25 mg PO BID Qty: 60 1RF Rx Instructions: Take (1) am; Take 2nd in afternoon if BP >130/90 fluticasone propionate 50 mcg/actuation spray,suspension 2 spray intranasal DAILY Qty: 16 0RF Rx Instructions: administer into each nostril ropinirole 1 mg tablet 2 mg PO QHS Rx Instructions: Must administer 2 hours before bedtime rosuvastatin [Crestor] 10 mg tablet 10 mg PO DAILY Qty: 90 3RF varenicline 0.5 mg (11)- 1 mg (42) tablets,dose pack See Rx Instructions PO PER PKG DIR Qty: 53 0RF Hold Instructions: Home Medication placed on hold at Doctor's office Rx Instructions: PO PER PKG DIR varenicline 1 mg tablet 1 mg PO BID Qty: 56 1RF Hold Instructions: Home Medication placed on hold at Doctor's office Rx Instructions: Start after the starting kit. calcium carbonate-vitamin D3 [Caltrate with Vitamin D3] 1 EACH tablet 1 ea PO BID aspirin [Adult Low Dose Aspirin] 81 mg tablet,delayed release (DR/EC) 81 mg PO DAILY Rx Instructions: per [place] dated 04/24/21 [facility] [facility] duloxetine 20 mg capsule,delayed release(DR/EC) 20 mg PO DAILY Qty: 90 3RF Incruse Ellipta 62.5 mcg/actuation blister with device 1 inh inhalation DAILY Qty: 30 11RF gabapentin [Neurontin] 600 mg tablet 600 mg PO HS Qty: 90 3RF losartan 25 mg tablet 25 mg PO DAILY Qty: 30 1RF Rx Instructions: Trial for Blood Pressure acetaminophen [Pain Reliever ES(acetaminophn)] 500 MG tablet 1,000 mg PO PRN PRN Discharge Instructions Instructions: GERD (Gastroesophageal Reflux Disease) (ED) Additional Instructions: At this time your laboratory work-up shows no abnormalities for your heart. Your EKG is stable. I suspect the increase in gas that you are having is secondary to your CPAP at night. Sitting up slightly while sleeping may help reduce this a little. I have sent a prescription for Protonix to your pharmacy, this may help with the reflux and burning symptoms you are having in the epigastric region. Please avoid any spicy, greasy, or tomato-based foods. Please take Tums as needed. If you notice any worsening of your symptoms, or any new symptoms such as vomiting, diarrhea, fever, chills, shortness of breath, chest pain, numbness, weakness, or fainting , please return immediately to the emergency department for reevaluation. Please follow up with your primary care provider as soon as possible for reassessment and reevaluation. As always, it was a pleasure participating in your medical care today. Referrals: Veronica Meek DO [Primary Care Provider] - Medical Decision Making <Angus Edge MD - Last Filed: 12/01/22 15:03> 72-year-old female presents with episodes of burning epigastric pain over days time. They have occurred more frequently while laying flat at night. She states that she drinks diet charlie 3-4 times per day, does have some ongoing anxieties, and that associated with this burning epigastric pain she has had some diaphoresis. She has not had vomiting or changes to stool. She will note that she is often constipated and gassy. She was referred to the ER after phone interview by her primary care physician's office today. Patient arrives to the ER alert and interactive in no significant distress. Her blood pressure is 164/73, vital signs are otherwise within normal limits. She is tender in the epigastrium on exam. Differential diagnosis includes gastritis, pancreatitis, other foregut pathology, and must exclude atypical presentation of acute coronary syndrome. The patient was placed on a child care centre director, IV access was established and she is referred for laboratory testing chest and abdominal x-ray, EKG. Will sign out to Dr Durbin at plan of shift, please see his note regarding final impression and plan. <Jr Durbin DO - Last Filed: 12/01/22 17:01> 72-year-old female presents with episodes of burning epigastric pain over days time. They have occurred more frequently while laying flat at night. She states that she drinks diet charlie 3-4 times per day, does have some ongoing anxieties, and that associated with this burning epigastric pain she has had some diaphoresis. She has not had vomiting or changes to stool. She will note that she is often constipated and gassy. She was referred to the ER after phone interview by her primary care physician's office today. Patient arrives to the ER alert and interactive in no significant distress. Her blood pressure is 164/73, vital signs are otherwise within normal limits. She is tender in the epigastrium on exam. Differential diagnosis includes gastritis, pancreatitis, other foregut pathology, and must exclude atypical presentation of acute coronary syndrome. The patient was placed on a child care centre director, IV access was established and she is referred for laboratory testing chest and abdominal x-ray, EKG. Will sign out to Dr Durbin at plan of shift, please see his note regarding final impression and plan. Dr. Durbin's documentation Patient was signed out to me by my colleague Dr. Edge. Please refer to be HPI, physical exam, assessment and plan. Laboratory work-up has returned, troponin negative, lipase negative, EKG unchanged. X-ray negative but there is evidence of gas. We will get repeat troponin and repeat EKG. Patient feels much better after GI cocktail. 4:53 PM Repeat EKG and troponin are normal. Patient feels much better. She was unwilling to wait for the 3-hour troponin. We did get a repeat at 2 hours and 30 minutes. Patient feels well. Symptoms inconsistent with STEMI, pancreatitis, or other significant abnormality. X-ray does show evidence of notable gas, I do suspect that her CPAP at night might be causing some air trapping which is causing the increase in gas. Otherwise patient is stable and appropriate for discharge. Discussed red flags which to return. I have extensively reviewed the treatment plan and discharge instructions with the patient. I have addressed all patient concerns at this time. The patient was made aware of what symptoms to monitor for that would warrant a return to the emergency department. Discussed the plan with the patient, they demonstrate verbal understanding and agreement with our assessment and plan at this time. The documentation in this chart was dictated using [employer] dictation software. Please excuse any dictation errors. FINDINGS: LUNGS: Clear. No pleural abnormality seen. Leads overlie the chest. Mild hyperinflation. HEART: Normal. MEDIASTINUM: Normal. BOWEL GAS PATTERN: Nondistended bowel loops. No air-fluid levels seen. Moderate quantity of stool. ABNORMAL COLLECTIONS OF AIR: No abnormal collection of air. No pneumoperitoneum. CALCIFICATIONS: Vascular. No radiopaque renal, ureteral, or bladder calcification. OTHER FINDINGS: Degenerative changes in the spine. Mild scoliosis. IMPRESSION: 1. Nonobstructive bowel gas pattern. 2. No acute pulmonary findings. HPI <Angus Edge MD - Last Filed: 12/01/22 15:03> General Mode of arrival: ambulatory . Date/Time Provider Initiated Documentation: 12/01/22 13:58 . Limitations to Documentation: no limitations . Information obtained by: patient . History of Present Illness 72 year old F presents to the emergency department with the chief complaint of Epigastric pain and burning over 1 week's time, described as moderate, Quality is described as burning and other, and is localized to the abdomen. Patient reports no radiation. Patient started experiencing this day(s) and it has been intermittent. No relieving factors improve symptom(s), Other factors that worsen symptoms (Seems worse at night while lying flat) . Patient notes shortness of breath (Chronic shortness of breath that is unchanged) and other (Anxiety); denies loss of appetite. Patient did receive the following treatments prior to arrival, none Related Data Home Medications Medication Instructions Recorded Confirmed calcium carbonate 600 mg-vitamin 1 ea PO BID 04/07/17 12/01/22 D3 20 mcg (800 unit) tablet (Caltrate with Vitamin D3) acetaminophen 500 mg tablet (Pain 1,000 mg PO PRN PRN 05/25/18 12/01/22 Reliever Extra Strength (acetaminophen)) aspirin 81 mg tablet,delayed 81 mg PO DAILY 04/24/21 12/01/22 release (Adult Low Dose Aspirin) rosuvastatin 10 mg tablet (Crestor) 10 mg PO DAILY #90 tabs 03/11/22 12/01/22 albuterol sulfate 90 mcg/actuation 1 puff inhalation QID PRN 04/09/22 12/01/22 aerosol inhaler shortness of breath or wheezing #1 inh duloxetine 20 mg capsule,delayed 20 mg PO DAILY #90 caps 05/07/22 12/01/22 release umeclidinium 62.5 mcg/actuation 1 inh inhalation DAILY #30 ea 05/07/22 12/01/22 blister powder for inhalation (Incruse Ellipta) varenicline 0.5 mg (11)-1 mg (42) See Rx Instructions PO PER PKG DIR 05/29/22 12/01/22 tablets in a dose pack #53 dose pk varenicline 1 mg tablet 1 mg PO BID #56 tabs 05/29/22 12/01/22 ropinirole 1 mg tablet 2 mg PO QHS 06/25/22 12/01/22 atenolol 25 mg tablet 25 mg PO BID #60 tabs 09/25/22 12/01/22 fluticasone propionate 50 2 spray intranasal DAILY #16 grams 09/25/22 12/01/22 mcg/actuation nasal spray,suspension gabapentin 600 mg tablet 600 mg PO HS #90 tabs 11/12/22 12/01/22 (Neurontin) losartan 25 mg tablet 25 mg PO DAILY #30 tabs 11/16/22 12/01/22 pantoprazole 40 mg tablet,delayed 40 mg PO DAILY #60 tabs 12/01/22 release (Protonix) Previous Rx's Medication Instructions Recorded rosuvastatin 10 mg tablet (Crestor) 10 mg PO DAILY #90 tabs 03/11/22 albuterol sulfate 90 mcg/actuation 1 puff inhalation QID PRN 04/09/22 aerosol inhaler shortness of breath or wheezing #1 inh duloxetine 20 mg capsule,delayed 20 mg PO DAILY #90 caps 05/07/22 release umeclidinium 62.5 mcg/actuation 1 inh inhalation DAILY #30 ea 05/07/22 blister powder for inhalation (Incruse Ellipta) varenicline 0.5 mg (11)-1 mg (42) See Rx Instructions PO PER PKG DIR 05/29/22 tablets in a dose pack #53 dose pk varenicline 1 mg tablet 1 mg PO BID #56 tabs 05/29/22 atenolol 25 mg tablet 25 mg PO BID #60 tabs 09/25/22 fluticasone propionate 50 2 spray intranasal DAILY #16 grams 09/25/22 mcg/actuation nasal spray,suspension gabapentin 600 mg tablet 600 mg PO HS #90 tabs 11/12/22 (Neurontin) losartan 25 mg tablet 25 mg PO DAILY #30 tabs 11/16/22 pantoprazole 40 mg tablet,delayed 40 mg PO DAILY #60 tabs 12/01/22 release (Protonix) Allergies Allergy/AdvReac Type Severity Reaction Status Date / Time Sulfa (Sulfonamide Allergy Intermediate swelling, Verified 12/01/22 14:04 Antibiotics) hives, itching oxycodone HCl [From Percocet] Allergy Unknown unknown Verified 12/01/22 14:04 cilostazol AdvReac Intermediate Diarrhea Verified 12/01/22 14:04 omeprazole AdvReac Intermediate bloating, Verified 12/01/22 14:04 itching diarrhea, General Stated Complaint: Chest Pain DAVID: 2 Review of Systems <Angus Edge MD - Last Filed: 12/01/22 15:03> Narrative: 8 systems were reviewed and otherwise negative. No recent illness. [facility] <Angus Edge MD - Last Filed: 12/01/22 15:03> All Active Problems (Updated 12/01/22 @ 16:54 by Jr Durbin DO) Epigastric discomfort (Acute) Acid reflux (Chronic) Abdominal bloating (Acute) Hypertension (Chronic) Elevated BP without diagnosis of hypertension (Acute) Pelvic floor weakness in female (Acute) Incontinence of bowel (Acute) Neck pain (Acute) Hand pain, right (Acute) Hx of hand surgery (Acute) Arthritis of hand (Acute) Atherosclerotic cardiovascular disease (Acute) Left bundle branch block (LBBB) (Acute) Peripheral vascular disease, unspecified (Chronic 04/24/21) Moderate RLE PAD, Mild LLE PAD , [facility] [place]monary emphysema (Acute 06/12/16) Tobacco dependence (Acute 11/13/11) Down to 6/day .. Carotid artery occlusion (Chronic 11/13/11) MILD Mild obstructive sleep apnea (Acute) 11/27/21 [facility] Sleep note 01/16/22 Sleep Clinic, f/u 04/2022 Restless leg (Acute) Irritable bowel syndrome with constipation (Acute) GERD (gastroesophageal reflux disease) (Acute 08/21/14) Esophageal pH monitoring 814 for chest pain. During chest pain episode had reflux 10% of the time Anxiety (Acute 11/13/11) Depression (Acute 06/12/16) Spinal stenosis, lumbar region, with neurogenic claudication (Chronic 11/13/11) Chiro, PT (dry needling) helps .. needs to keep it up. Wkg on core mm strength. 07/2022, ik Osteoporosis (Chronic 11/13/11) DEXA (2017) Osteoporosis. Reclast x 2016, 2017, 2019. [ ] 2019, 2020, 2021 Myalgia and myositis (Acute 11/13/11) Migraine headache without aura (Acute) Mild cognitive impairment (Acute) Medical History Abdominal pain Chest pain negative cardiac w/u Encounter for diagnostic colonoscopy due to change in bowel habits Essential hypertension (11/13/11) Fibromyalgia Irritable colon (11/13/11) Lumbar radicular syndrome Non-cardiac chest pain (05/01/15) Peripheral arterial disease SOB (shortness of breath) on exertion Significant worsening x weeks, 03/2021 TTH (tension-type headache) Vulvar pruritus Not responsive to topical estrogen. 09/2019 patient treated with clobetasol cream 11/2019 symptoms improving we will continue twice weekly Surgical History Abdominal hysterectomy Colonoscopy - IV Sedation (11/22/21) 07/07/14 Dr. Meraz History of colonoscopy Oophrectomy, Both Family History Sister Essential hypertension Brother Essential hypertension Sister Rheumatoid arthritis Hypertension Social History Smoking/Tobacco Use Status: Current every day Tobacco Type: cigarettes Tobacco: How many years used: 50 Quit status: quit date established Smoking risk assessment performed?: Yes Alcohol Intake: current Alcohol Intake frequency: holidays/special occasions only Alcohol type: beer Drug use: Never Substance use type: does not use Caregiver/Support person: No Household members: spouse and other Details: Eunice reese 50yrs Housing: house Number of Children: 2 number of grandchildren: 1 Communication Needs: Corrective Lenses current occupation: retired Current gender identity: female What is your relationship status?: Panel score (0-1 are the most socially isolated patients): 1 What type of physical activity do you participate in: walking Duration: 30-45 minutes/day Frequency: 5-6 times per week Seatbelt use: always Drive intox or ride w/intox bus driver supervisor: No Working smoke detector in home: Yes Fire extinguisher in home: Yes Carbon monox detector in home: Yes Do you feel safe at home: Yes Do you feel safe in your relationship?: Yes Victim of physical abuse: No Victim of emotional abuse: No Victim of sexual abuse: No Exam <Angus Edge MD - Last Filed: 12/01/22 15:03> Narrative Exam Narrative: GEN: awake, alert, oriented 3. Pleasant, well groomed, interactive. HEAD: Normocephalic, atraumatic ENT: Mucous membranes moist, oropharynx unremarkable, External ear exam unremarkable EYES: PERRL, EOMI NECK: Full ROM, no SHANA, no menigismus CHEST/RESP: Nontender, clear to auscultation bilateral, no wheeze/rhonchi/rales CARDIOVASCULAR: RRR, no murmur, rub kailey. 2+ Rad pulse bilateral ABDOMEN: Soft, tender in the epigastrium without rebound or guarding, no mass. +Bowel sounds EXT: Full ROM, no edema, no rash Neuro: Grossly normal neurologic exam, conversant, interactive. Psych: Speech fluent, thoughts congruent, affect slightly anxious at times Course <Angus Edge MD - Last Filed: 12/01/22 15:03> Vital Signs Vital signs: Vital Signs Pulse 68 12/01/22 14:01 Respiratory Rate 16 12/01/22 14:01 Blood Pressure 164/73 H 12/01/22 14:01 Pulse Oximetry 97 12/01/22 14:01 Pulse 68 12/01/22 14:01 Respiratory Rate 16 12/01/22 14:01 Respiratory Effort 12/01/22 14:03 Blood Pressure 164/73 H 12/01/22 14:01 Blood Pressure Position Supine 12/01/22 14:01 Pulse Oximetry 97 12/01/22 14:01 Oxygen Delivery Method Room Air 12/01/22 14:01 Oxygen Flow Rate 0 12/01/22 14:01 Pain Level 7 12/01/22 14:01 Sign Out <Angus Edge MD - Last Filed: 12/01/22 15:03> Sign Out Data: Sign Out Comment: Followup labs, XR. Re-eval Last updated by Angus Edge MD at 12/01/22 14:59
[2022-12-01 14:33] VITALS: RESP 18
[2022-12-01 14:44] LABS: Absolute Lymphocyte Count 1.62 10^3/uL (1.2-3.4); Absolute Monocyte Count 0.67 10^3/uL (0.1-0.8); Absolute Neutrophil Count 3.03 10^3/uL (1.2-6.7); Basophils % 0.7; Eosinophils % 1.8; HCT 41.2 % (36.0-46.0); HGB 14.1 g/dL (11.2-15.7); Immature Grans % 0.2; Lymphocytes % 29.6; MCH 31.1 pg (27.0-33.0); MCHC 34.2 % (32.0-36.0); MCV 91 fL (80-95); MPV 9.8 fL (8.0-11.0); Monocytes % 12.2; Neutrophils % 55.5; Platelet Count 241 10^3/uL (130-400); RBC 4.54 10^6/uL (3.93-5.22); RDW-SD 46.9 fL; WBC 5.47 10^3/uL (4.4-10.8)
[2022-12-01 14:45] LABS: Abs Immature Grans 0.01 10^3/uL (0.0-0.06); Absolute Basophil Count 0.04 10^3/uL (0.0-0.2)
[2022-12-01] MEDS: Pantoprazole 40 MG VIAL IVP (14:47)
[2022-12-01 15:03] VITALS: BP 163/74; PULSE 56; RESP 18; O2SAT 95
[2022-12-01 15:09] LABS: ALT 22 U/L (14-59); AST 27 U/L (15-37); Albumin 4.1 g/dL (3.4-5.0); Alkaline Phosphatase 102 U/L (46-116); Anion Gap 10.3 mmol/L (3-11); BUN 15 mg/dL (7-18); Bilirubin, Total 0.4 mg/dL (0.2-1.0); CO2 24.7 mmol/L (21.0-32.0); CREATININE 1.1 mg/dL (0.55-1.02); Calcium 9.4 mg/dL (8.5-10.1); Chloride 103 mmol/L (98-107); Estimated GFR 52.73 (mL/min/1.73m2); Glucose 97 mg/dL (74-106); Lipase 107 U/L (73-393); Magnesium 1.9 mg/dL (1.8-2.4); Potassium 4.2 mmol/L (3.5-5.1); Sodium 138 mmol/L (136-145); Total Protein 7.5 g/dL (6.4-8.2); Troponin I < 50 ng/L (<or=60)
[2022-12-01] MEDS: Acetaminophen 500 MG TAB 1000 MG PO (15:41)
--- NOTE | 2022-12-01 16:00 | RT.EKG_ITS ---
APPROVED REPORT Exam: Resting ECG Reason for Exam: chest pain Patient Location: E HR:56 bpm ECG Measurements Heart Rate 56 AXIS NV 214 P 69 QRSd 147 QRS -29 QT 446 T 166 QTc 429 Conclusion Sinus bradycardia...rate< 60 Borderline prolonged NV interval...NV >212, V-rate 50- 90 Left bundle branch block...QRSd>120, broad/notched R Physician: stable, unchanged, negative for sgarbossa
[2022-12-01 16:28] VITALS: BP 117/60; PULSE 55; RESP 20; O2SAT 97
[2022-12-01 16:37] LABS: Troponin I < 50 ng/L (<or=60)
[2022-12-01 17:06] VITALS: BP 171/72; PULSE 59; RESP 20; O2SAT 96
== END 2022-12-01 17:27 | disposition home or self-care (01) ==
PROVIDERS: Emergency Medicine; Emergency Provider Student in an Organized Health Care Education/Training Program; PCP Student in an Organized Health Care Education/Training Program
DX: K21.9 Gastro-esophageal reflux disease without esophagitis (principal); R61 Generalized hyperhidrosis; I10 Essential (primary) hypertension
CPT/HCPCS: 36415; 80053; 83690; 93005; 96374; 99284; 74022; 83735; 84484; 85025; 93010; 99285

== ENCOUNTER → 2022-12-03 11:24 | Outpatient (BNVA) | payer MEDICARE, OTHER, SELFPAY | PROVIDERS: PCP Student in an Organized Health Care Education/Training Program; Referring Provider Student in an Organized Health Care Education/Training Program; Visit Provider Nurse Practitioner Adult Health | DX: R51.9 Headache, unspecified (principal) | CPT/HCPCS: 64405 ==

== ENCOUNTER 2023-02-03 01:39 | Outpatient (CLI) | payer MEDICARE, OTHER, SELFPAY ==
--- NOTE | 2023-02-03 06:30 | DI.MAMMO_ITS ---
Exam(s) MAMMO SCREENING EXAM: MAMMO SCREENING CLINICAL HISTORY: screening,z12.39 TECHNIQUE: Bilateral full field digital CC and MLO mammographic images were obtained with 3D tomosyn thesis and utilizing computer aided detection (CAD). COMPARISON: Available for comparison. FINDINGS: Masses/Architectural Distortion: None seen. Microcalcifications: No suspicious pleomorphic-type are seen. Skin Thickening/Nipple Retraction: None. IMPRESSION: 1. No significant interval change with no specific features of malignancy noted. 2. Unless there is more urgent need, screening mammography is recommended, as per [place] guidelines. BI-RADS Category 1 - Negative Breast Density - Category B - Scattered areas of fibroglandular density Breast density category C or D implies that the patient has dense breast tissue. Dense breast tissue is very common and is not abnormal but dense breast tissue can make it harder to find cancer on a ma mmogram. Also, dense breast tissue may increase their breast cancer risk. This information about the result of the mammogram report was provided to the patient to raise their awareness. Use this report when you speak with the patient about their risks for breast cancer, which includes their family hist ory. At that time, you may recommend for more screening tests (Ultrasound or MRI) as they might be us eful based on their risk. A negative radiographic report should not delay biopsy if a dominant or clinically suspicious mass is present. Up to ten percent of cancers are not identified on mammography. A negative report may reinforce clinical impression. Adenosis and dense breasts may obscure an underlying neoplasm. False positive reports average 6 to 10%. Patient will receive a letter notifying them of these results.
--- NOTE | 2023-02-03 06:32 | DI.CTLCSR_ITS ---
Exam(s) CT CHEST LUNG CANCER SCREEN EXAM: CT CHEST LUNG CANCER SCREEN CLINICAL HISTORY: Screening for lung cancer,former smoker, z87.891 TECHNIQUE: Imaging Protocol: Axial computed tomography images with coronal and sagittal reformatted images were created and reviewed COMPARISON: CT CT CHEST LUNG CANCER SCREEN from 11/11/2021 FINDINGS: Tracheobronchial tree: Patent where visualized. Pulmonary parenchyma: Moderately severe emphysematous changes are present in the lungs. No focal con solidating infiltrates are seen. Fibrotic changes are again seen in the peripherally predominantly i n the lung bases. Lung Nodules: None. Mediastinum and Ashlie: No dominant adenopathy or fluid collection. The esophagus is unremarkable. Thyroid gland: Unremarkable. Lymph nodes: Unremarkable. Pleura: No effusion or pneumothorax. Heart: The heart is not dilated. Moderate coronary artery calcification and/or stents. No pericardia l effusion. Aorta: Thoracic aorta non-dilated.Atherosclerosis. Upper abdomen: Unremarkable. Soft Tissues: Unremarkable. Bones: Within normal limits. IMPRESSION: No pulmonary nodules. Lung RADS Cat 1 - Negative: No nodules and definitely benign nodules Lung-RADS 1.0 CATEGORIES: Category 0 - Prior chest CT exam(s) being located for comparison. Category 1 - Annual screening in 12 months. No nodules or definitely benign nodules. Category 2 - Annual screening in 12 months. Benign appearance. Nodules with low likelihood of becomin g active cancer. Category 3 - 6-month follow-up. Probably benign. Short-term follow-up suggested. Nodules with low lik elihood of becoming active cancer. Category 4A - 3-month follow-up and CT/PET if >8 mm in size. Suspicious finding. Findings which requi re additional testing. Category 4B - Findings which require additional testing and tissue sampling. Suspicious finding. Category 4X - Category 3 or 4 nodules with additional features or imaging findings that increases the suspicion of malignancy. Modifier S- Potentially clinically significant finding. (Non lung cancer) RADIATION DOSE DELIVERED: 80.97mGy.cm Total DLP 80.97mGy.cmTotal DLP DATA REPOSITORY: All CT scans at this facility are submitted to the National Radiology Data Registry (NRDR) Dose Index Registry (DIR) with the [employer] ([employer]). RADIATION OPTIMIZATION: All CT scans at this facility use at least one of these dose optimization te chniques: automated exposure control; mA and/or kV adjustment per patient size (includes targeted exa ms where dose is matched to clinical indication); or iterative reconstruction.
== END 2023-02-03 01:59 ==
LOC: DI 01:39
PROVIDERS: PCP Student in an Organized Health Care Education/Training Program; Visit Provider Student in an Organized Health Care Education/Training Program
DX: Z12.31 Encounter for screening mammogram for malignant neoplasm of breast (principal); Z12.2 Encounter for screening for malignant neoplasm of respiratory organs; Z87.891 Personal history of nicotine dependence; J43.8 Other emphysema; J98.4 Other disorders of lung
CPT/HCPCS: 71271; 77063; 77067

== ENCOUNTER 2023-03-10 08:22 | Outpatient (CLI) | payer MEDICARE, OTHER, SELFPAY | END 2023-03-10 08:23 | disposition home or self-care (01) | LOC: DI.CARD 08:24 | PROVIDERS: PCP Student in an Organized Health Care Education/Training Program; Visit Provider Internal Medicine Cardiovascular Disease | DX: R06.02 Shortness of breath (principal) | CPT/HCPCS: 93010 ==

== ENCOUNTER 2023-03-10 09:40 | Outpatient (REF) | payer MEDICARE, OTHER, SELFPAY ==
[2023-03-10 10:23] LABS: TSH 0.98 uIU/mL (0.36-3.74)
[2023-03-10 10:37] LABS: Vitamin D 25 Total 17.2 ng/mL (30-100)
== END 2023-03-10 09:41 | disposition home or self-care (01) ==
LOC: NCHCN 09:40
PROVIDERS: PCP Student in an Organized Health Care Education/Training Program; Visit Provider Physician Assistant Surgical
DX: R53.83 Other fatigue (principal); F41.8 Other specified anxiety disorders; M81.0 Age-related osteoporosis without current pathological fracture
CPT/HCPCS: 82306; 84443

== ENCOUNTER → 2023-03-10 11:14 | Outpatient (BNVA) | payer MEDICARE, OTHER, SELFPAY | PROVIDERS: PCP Student in an Organized Health Care Education/Training Program; Referring Provider Student in an Organized Health Care Education/Training Program; Visit Provider Internal Medicine Cardiovascular Disease | DX: I25.10 Atherosclerotic heart disease of native coronary artery without angina pectoris (principal); I44.7 Left bundle-branch block, unspecified; I10 Essential (primary) hypertension | CPT/HCPCS: 99214 ==

== ENCOUNTER 2023-03-17 02:54 | Outpatient (CLI) | payer MEDICARE, OTHER, SELFPAY ==
[2023-03-17] MEDS: Albuterol HFA 18 GM 200 PUFF INH IH (09:20)
[2023-03-17] MEDS: Inhaler, Assist Device 1 EACH MC (09:20)
--- NOTE | 2023-03-17 11:08 | W.PFT ---
Date of service: 03/17/23 Time of Service: 08:05 Pulmonary Function Test Result Indications: Emphysema Interpretation Spirometry: There is mild airflow limitation. There is no significant bronchodilator response. Lung Volumes: There is hyperinflation. Diffusion Capacity: There is significant decreased diffusion. Airway Pressure: Normal airways resistance Impression Ther eis mild airflow obstruction with a decreased diffusion. This is consistent with COPD with emphysema. Clinical Correlation therefore is recommended.
== END 2023-03-17 02:55 | disposition home or self-care (01) ==
LOC: RT 02:55
PROVIDERS: PCP Student in an Organized Health Care Education/Training Program; Visit Provider Physician Assistant Surgical
DX: J43.0 Unilateral pulmonary emphysema [MacLeod's syndrome] (principal); F17.210 Nicotine dependence, cigarettes, uncomplicated
CPT/HCPCS: 94060; 94726; 94729

== ENCOUNTER 2023-03-19 01:06 | Outpatient (CLI) | payer MEDICARE, OTHER, SELFPAY ==
--- NOTE | 2023-03-19 06:45 | DI.NM_ITS ---
APPROVED REPORT Exam: Pharmacologic Patient Location: Out-Patient Room/Bed: Stress Nurse: Radha Carreno RN Ordering Provider:BARBRA HATFIELD, Contact Number: [phone] BMI: 24.61 Baseline Rhythm: Sinus Bradycardia, LBBB Indications: Chest pain. LBBB. ASCVD. Vascular disease. Emphysema. Medical History Medical History: Carotid artery occlusion. GERD. Pulmonary emphysema. Smoker. PVD. CVD. LBBB. RAYMUNDO. HT N. Anxiety. ETOH. SOB Cardiac Medications: Rosuvastatin. Losartan. Atenolol. Aspirin. Amlodipine. Albuterol Sulfate. Allergies: Sulfa. Oxycodone. Cilostazol. Omeprazole. Cardiac Risk Factors: HTN, Hyperlipidemia, Current Smoking, SOB, COPD, PVD, CVD Previous Cardiac Procedures: None Pretest Chest Pain Characteristics: No chest pain Exercise History: Physically active Physical Disabilities: none Lung Sounds: Clear to auscultation Heart Sounds: Regular Stress Test Details Test: Pharmacologic stress was paired with low level exercise. Reason for pharmacologic stress test: LBBB. Nuclear Acquisition: Rest Tc-99m/Stress Tc-99m 1 day Rest Isotope: Tc-99m Sestamibi. Dose: 9.9 Date: 03/19/2023 Injection Time: 0855 Stress Isotope: Tc-99m Sestamibi. Dose: 31.5 Date: 03/19/2023 Injection Time: 1010 HR Resting HR Supine: 54 bpm Max Heart Rate (APMHR): 146.843397 bpm Resting HR Standin bpm Target HR (85% APMHR): 124.355674 bpm Max HR Achieved: 114 bpm % of APMHR: 78.08 Recovery HR: 75 bpm BP Resting BP Supine: 150/76 mmHg Resting BP Standin/76 mmHg Max BP: 160/66 mmHg Recovery BP: 156/80 mmHg ECG Resting ECG: Sinus Bradycardia, LBBB Ectopy: none Stress ECG: Sinus Rhythm, LBBB ST Change: Nondiagnostic LBBB Arrhythmia: None Recovery ECG: Sinus Rhythm, LBBB Recovery ST Change: Nondiagnostic LBBB Recovery Arrhythmia: None Clinical Stress Symptoms: Chest pressure. Headache. Nausea. Angina Score: Non-Limiting Rate Pressure Product: 96321 Stress ECG Conclusion 1. Resting electrocardiogram showed a left bundle branch block 2. Patient underwent testing using pharmacologic stress with regadenoson 3. Peak heart rate achieved was 78% of predicted for age 4. The electrocardiographic portion of the test was nondiagnostic 5. See MPI report Stress Test Summary STAGE HR BP SpO2 Symptoms NOTES Supine 54 150/76 Standing 65 140/76 3 min post Lexiscan injection 80 156/76 Chest pressure and nausea subsided. Headache still present . 6 min post Lexiscan injection 75 156/80 96 Headache still present but improving. Pharmacologic stress was paired with low level exercise at 2.0 mph and 0% grade due to LBBB. Pt sharmila ated well. MPI Conclusion Myocardial perfusion is normal. There is no evidence of ischemia or prior infarction Ejection fraction is 56% with normal wall motion Radiologist Interpretation Radiologist agrees with Chamber Worker's Interpretation. Radiologist Interpretation by: Anish Simpson MD
[2023-03-19] MEDS: Regadenoson 0.4 MG/5 ML SYR IVP (10:35)
== END 2023-03-19 01:26 ==
LOC: DI 01:07
PROVIDERS: PCP Student in an Organized Health Care Education/Training Program; Visit Provider Internal Medicine Cardiovascular Disease
DX: I10 Essential (primary) hypertension (principal); I25.10 Atherosclerotic heart disease of native coronary artery without angina pectoris; I44.7 Left bundle-branch block, unspecified; I73.9 Peripheral vascular disease, unspecified; J43.9 Emphysema, unspecified
CPT/HCPCS: 78452; 93016; 93018; 93017; J2785

== ENCOUNTER → 2023-04-01 10:01 | Outpatient (BNVA) | payer MEDICARE, OTHER, SELFPAY | PROVIDERS: PCP Student in an Organized Health Care Education/Training Program; Referring Provider Student in an Organized Health Care Education/Training Program; Visit Provider Nurse Practitioner Adult Health | DX: R51.9 Headache, unspecified (principal) | CPT/HCPCS: 64405; 99213 ==

== ENCOUNTER → 2023-04-15 13:28 | Outpatient (BNVA) | payer MEDICARE, OTHER, SELFPAY | PROVIDERS: PCP Student in an Organized Health Care Education/Training Program; Referring Provider Student in an Organized Health Care Education/Training Program; Visit Provider Nurse Practitioner Adult Health | DX: R51.9 Headache, unspecified (principal) | CPT/HCPCS: 64405 ==

== ENCOUNTER 2023-04-25 10:53 | Emergency (ER) | payer MEDICARE, OTHER, SELFPAY ==
[2023-04-25 10:56] VITALS: BP 144/111; PULSE 56; RESP 18; TEMP 36.6; O2SAT 98
[2023-04-25 11:00] VITALS: BP 164/88
--- NOTE | 2023-04-25 11:00 | DI.RAD_ITS ---
Exam(s) XR LUMBAR SPINE COMPLETE EXAM: XR LUMBAR SPINE COMPLETE CLINICAL HISTORY: pain. TECHNIQUE: 2D digital imaging was performed. COMPARISON: CR XR DEXA BONE DENSITY W/WO NEIDA from 10/05/2019 FINDINGS: Five views. No evidence of fracture, listhesis, nor pars interarticularis defects. There is disc space narrowing at L2-3 level which is asymmetric, more prominent on the left side of the disc space. There is also narrowing of the right-side of the L4-5 disc space. Mild degenerative changes at the L5-S1 facet joints. Other facet joints appear unremarkable. Sacroi liac joints appear unremarkable. Bone density normal. No osseous lesions. IMPRESSION: Disc space narrowing at L2-3 and L4-5 levels. Also some facet arthropathy L5-S1 level. DATA REPOSITORY: RADIATION DOSE DELIVERED:
--- NOTE | 2023-04-25 11:12 | ED.GENADUL_ITS ---
Discharge Plan Disposition Patient Disposition: Home Condition: Stable Discharge Details Clinical Impression: Lumbar back pain Primary Care Provider: Veronica Meek ED Provider: Davon Massey Home Meds and New Rx's Prescriptions: New hydrocodone-acetaminophen 10-300 mg tablet 1 tab PO BID PRNQty: 8 0RF Continued vortioxetine 5 mg tablet 5 mg PO DAILY Qty: 30 1RF Hold Instructions: Home Medication placed on hold at Doctor's office Rx Instructions: Start @ 1/2 tab (after 1 day no duloxetine/no vortioxetine) x 4 days, then increase to (1) tab varenicline [Chantix Starting Month Box] 0.5 mg (11)- 1 mg (42) tablets,dose pack See Rx Instructions PO PER PKG DIR Qty: 53 0RF Rx Instructions: PO PER PKG DIR . Initial:Days 1 to 3: 0.5 mg once daily.Days 4 to 7: 0.5 mg twice daily. Maintenance (day 8 and later): 1 mg twice daily; may consider a temporary or permanent dose reduction if usual dose is not tolerated (Ref). Duration: Continue maintenance dose for at least 11 weeks (for a total of at least 12 weeks of treatment). May consider extended maintenance therapy based on individual patient risk:benefit; evidence suggests relapse prevention benefits with continuing therapy for up to 1 year (Ref). Approaches to selecting a tobacco quit date: May either choose a fixed quit date (ie, start varenicline, then quit on day 8) or a flexible quit date (ie, start varenicline, then quit between days 8 to 35). Alternatively, a gradual quit date (ie, start varenicline and reduce smoking 50% by week 4, reduce an additional 50% by week 8, and continue reducing with a goal of complete abstinence by week 12) is acceptable (Ref). duloxetine 30 mg capsule,delayed release(DR/EC) 30 mg PO BID Qty: 60 1RF Rx Instructions: Trial increased dose: 1/day x1 week then 2/day. ropinirole 1 mg tablet 2 mg PO QHS Rx Instructions: Must administer 2 hours before bedtime rosuvastatin [Crestor] 10 mg tablet 10 mg PO DAILY Qty: 90 3RF varenicline 0.5 mg (11)- 1 mg (42) tablets,dose pack See Rx Instructions PO PER PKG DIR Qty: 53 0RF Hold Instructions: Home Medication placed on hold at Doctor's office Rx Instructions: PO PER PKG DIR varenicline 1 mg tablet 1 mg PO BID Qty: 56 1RF Hold Instructions: Home Medication placed on hold at Doctor's office Rx Instructions: Start after the starting kit. amlodipine 5 mg tablet 5 mg PO DAILY Qty: 30 1RF Hold Instructions: Adverse Reaction Rx Instructions: Trial HALF tab for high blood pressure gabapentin [Neurontin] 600 mg tablet 600 mg PO HS Qty: 90 3RF Striverdi Respimat 2.5 mcg/actuation mist 2 inh inhalation DAILY atenolol 25 mg tablet 25 mg PO DAILY Rx Instructions: Take (2) to trial taper off BB duloxetine 20 mg capsule,delayed release(DR/EC) 20 mg PO DAILY Qty: 90 1RF Hold Instructions: Home Medication placed on hold at Doctor's office Rx Instructions: Continue @ /2 .. albuterol sulfate 90 mcg/actuation HFA aerosol inhaler 1 puff inhalation QID PRN (Reason: shortness of breath or wheezing) Qty: 1 2RF Rx Instructions: 1-2 puffs up to 4 times a day as needed for shortness of breath famotidine 40 mg tablet 40 mg PO BID Qty: 60 1RF Rx Instructions: Trial for gastric pain, trial taper to 1/day if possible fluticasone propionate 50 mcg/actuation spray,suspension 2 spray intranasal DAILY Qty: 16 0RF Rx Instructions: administer into each nostril cholecalciferol (vitamin D3) 50 mcg (2,000 unit) capsule 50 mcg PO DAILY 90 Days Qty: 90 4RF calcium carbonate-vitamin D3 [Caltrate with Vitamin D3] 1 EACH tablet 1 ea PO BID aspirin [Adult Low Dose Aspirin] 81 mg tablet,delayed release (DR/EC) 81 mg PO DAILY Rx Instructions: per note dated 04/24/21 [facility] [place] [facility] Striverdi Respimat 2.5 mcg/actuation mist 2 inh inhalation DAILY Qty: 4 6RF losartan 50 mg tablet 50 mg PO BID Qty: 180 1RF Rx Instructions: Continue for BP, OK @ DAILY DOSING for now acetaminophen [Pain Reliever ES(acetaminophn)] 500 MG tablet 1,000 mg PO PRN PRN pantoprazole [Protonix] 40 mg tablet,delayed release (DR/EC) 40 mg PO DAILY Qty: 60 0RF Hold Instructions: Home Medication placed on hold at Doctor's office Discharge Instructions Instructions: Back Pain (ED) Additional Instructions: Follow up with your primary care provider within 1 week if you feel more ill, have severe worsening pain, difficulty urinating or fevers return to the emergency department Medical Decision Making 72 yo female with hx of chronic neck and back pain that she states comes and goes, pulmonary emphysema, htn, who comes in with 2 days of lower back pain with no falls or other trauma, and states it feels similar to prior episodes of lumbar back pain she's had in the past. She denies fevers, chills, weakness, abdominal pain, or difficulty with urination. She localizes the pain across the entire lumbar region, states standing improves the pain and sitting makes it worse. She has no cva tenderness, no visible or palpable deformities of the lumbar back or upper back. She has tenderness with palpation to the bilateral lumbar paraspinous muscles. Intact distal sensation, no saddle anesthesia. Her symptoms seem consistent with musculoskeletal back pain, also could be disc herniation though pain isn't localized to one side. She has no findings on history or exam to suggest cauda equina or spinal epidural abscess. Given her age will obtain plain films to evaluate for nontraumatic compression fracture and reassess after she receives analgesics. xray negative on my read and she feels much better requesting d/c, stable exam, will call her if vrad sees any acute findings. She will f/u with her pcp this week, return precautions given Differential Diagnosis Differential Diagnosis: spasm, disc herniation, compression fx Medical Records Medical records reviewed: Yes I reviewed the patient's medical records. Imaging Data Radiologic Study: Attestation: I personally reviewed and interpreted this imaging study as follows: Imaging: X-Ray My impression: no acute findings HPI General Mode of arrival: ambulatory . Date/Time Provider Initiated Documentation: 04/25/23 10:58 . Limitations to Documentation: no limitations . Information obtained by: patient . History of Present Illness 72 year old F presents to the emergency department with the chief complaint of lower back pain, described as moderate, Patient started experiencing this day(s) (2) and it has been constant. other things that improve symptom(s), (standing) Other factors that worsen symptoms (sitting) . Patient notes denies chest pain, fever/chills, nausea/vomiting and shortness of breath. Related Data Home Medications Medication Instructions Recorded Confirmed calcium carbonate 600 mg-vitamin 1 ea PO BID 04/07/17 04/24/23 D3 20 mcg (800 unit) tablet (Caltrate with Vitamin D3) acetaminophen 500 mg tablet (Pain 1,000 mg PO PRN PRN 05/25/18 04/24/23 Reliever Extra Strength (acetaminophen)) aspirin 81 mg tablet,delayed 81 mg PO DAILY 04/24/21 04/24/23 release (Adult Low Dose Aspirin) rosuvastatin 10 mg tablet (Crestor) 10 mg PO DAILY #90 tabs 03/11/22 04/24/23 varenicline 0.5 mg (11)-1 mg (42) See Rx Instructions PO PER PKG DIR 05/29/22 04/24/23 tablets in a dose pack #53 dose pk varenicline 1 mg tablet 1 mg PO BID #56 tabs 05/29/22 04/24/23 ropinirole 1 mg tablet 2 mg PO QHS 06/25/22 04/24/23 pantoprazole 40 mg tablet,delayed 40 mg PO DAILY #60 tabs 12/01/22 04/24/23 release (Protonix) vortioxetine 5 mg tablet 5 mg PO DAILY #30 tabs 12/01/22 04/24/23 gabapentin 600 mg tablet 600 mg PO HS #90 tabs 12/04/22 04/24/23 (Neurontin) amlodipine 5 mg tablet 5 mg PO DAILY #30 tabs 12/29/22 04/24/23 duloxetine 20 mg capsule,delayed 20 mg PO DAILY #90 caps 01/23/23 04/24/23 release albuterol sulfate 90 mcg/actuation 1 puff inhalation QID PRN 01/24/23 04/24/23 aerosol inhaler shortness of breath or wheezing #1 inh famotidine 40 mg tablet 40 mg PO BID #60 tabs 01/24/23 04/24/23 fluticasone propionate 50 2 spray intranasal DAILY #16 grams 01/24/23 04/24/23 mcg/actuation nasal spray,suspension cholecalciferol (vitamin D3) 50 50 mcg PO DAILY 90 days #90 caps 03/10/23 04/24/23 mcg (2,000 unit) capsule duloxetine 30 mg capsule,delayed 30 mg PO BID #60 caps 03/24/23 04/24/23 release varenicline 0.5 mg (11)-1 mg (42) See Rx Instructions PO PER PKG DIR 03/24/23 04/24/23 tablets in a dose pack (Chantix #53 dose pk Starting Month Box) losartan 50 mg tablet 50 mg PO BID #180 tabs 04/14/23 04/24/23 olodaterol 2.5 mcg/actuation mist 2 inh inhalation DAILY #4 grams 04/14/23 04/24/23 for inhalation (Striverdi Respimat) atenolol 25 mg tablet 25 mg PO DAILY 04/24/23 04/24/23 olodaterol 2.5 mcg/actuation mist 2 inh inhalation DAILY 04/24/23 04/24/23 for inhalation (Striverdi Respimat) hydrocodone 10 mg-acetaminophen 1 tab PO BID PRN #8 tabs 04/25/23 300 mg tablet Previous Rx's Medication Instructions Recorded rosuvastatin 10 mg tablet (Crestor) 10 mg PO DAILY #90 tabs 03/11/22 varenicline 0.5 mg (11)-1 mg (42) See Rx Instructions PO PER PKG DIR 05/29/22 tablets in a dose pack #53 dose pk varenicline 1 mg tablet 1 mg PO BID #56 tabs 05/29/22 pantoprazole 40 mg tablet,delayed 40 mg PO DAILY #60 tabs 12/01/22 release (Protonix) vortioxetine 5 mg tablet 5 mg PO DAILY #30 tabs 12/01/22 gabapentin 600 mg tablet 600 mg PO HS #90 tabs 12/04/22 (Neurontin) amlodipine 5 mg tablet 5 mg PO DAILY #30 tabs 12/29/22 duloxetine 20 mg capsule,delayed 20 mg PO DAILY #90 caps 01/23/23 release albuterol sulfate 90 mcg/actuation 1 puff inhalation QID PRN 01/24/23 aerosol inhaler shortness of breath or wheezing #1 inh famotidine 40 mg tablet 40 mg PO BID #60 tabs 01/24/23 fluticasone propionate 50 2 spray intranasal DAILY #16 grams 01/24/23 mcg/actuation nasal spray,suspension cholecalciferol (vitamin D3) 50 50 mcg PO DAILY 90 days #90 caps 03/10/23 mcg (2,000 unit) capsule duloxetine 30 mg capsule,delayed 30 mg PO BID #60 caps 03/24/23 release varenicline 0.5 mg (11)-1 mg (42) See Rx Instructions PO PER PKG DIR 03/24/23 tablets in a dose pack (Chantix #53 dose pk Starting Month Box) losartan 50 mg tablet 50 mg PO BID #180 tabs 04/14/23 olodaterol 2.5 mcg/actuation mist 2 inh inhalation DAILY #4 grams 04/14/23 for inhalation (Striverdi Respimat) hydrocodone 10 mg-acetaminophen 1 tab PO BID PRN #8 tabs 04/25/23 300 mg tablet Allergies Allergy/AdvReac Type Severity Reaction Status Date / Time Sulfa (Sulfonamide Allergy Intermediate swelling, Verified 04/24/23 08:32 Antibiotics) hives, itching oxycodone HCl [From Percocet] Allergy Unknown unknown Verified 04/24/23 08:32 cilostazol AdvReac Intermediate Diarrhea Verified 04/24/23 08:32 omeprazole AdvReac Intermediate bloating, Verified 04/24/23 08:32 itching diarrhea, General Stated Complaint: Nk/Back Pain DAVID: 4 Review of Systems All systems reviewed & are unremarkable except as noted in HPI and below Constitutional Constitutional: Denies chills, Denies fever(s) and Denies weakness Cardiovascular Cardiovascular: Denies chest pain and Denies dyspnea Respiratory Respiratory: Denies cough and Denies dyspnea Gastrointestinal Gastrointestinal: Denies abdominal pain, Denies nausea and Denies vomiting Integumentary/Breasts Skin/Breast: Denies rash Neurologic Neurologic: Denies weakness PFSH All Active Problems (Updated 04/25/23 @ 12:37 by Davon Massey MD) Lumbar back pain (Acute) Cervical (neck) region somatic dysfunction (Acute) Anxiety (Acute 11/13/11) Duloxetine decreased, 04/2023 Carotid artery occlusion (Chronic 11/13/11) MILD Depression (Acute 06/12/16) GERD (gastroesophageal reflux disease) (Acute 08/21/14) Esophageal pH monitoring 07-07-14 for chest pain. During chest pain episode had reflux 10% of the time Myalgia and myositis (Acute 11/13/11) Osteoporosis (Chronic 11/13/11) DEXA (2017) Osteoporosis. Reclast x 2017, 2018, 2019. [ ] 2019, 2020, 2021 Pulmonary emphysema (Chronic 06/12/16) Spinal stenosis, lumbar region, with neurogenic claudication (Chronic 11/13/11) Chiro, PT (dry needling) helps .. needs to keep it up. Wkg on core mm strength. 07/2022, [place] Tobacco dependence (Acute 11/13/11) Down to 6/day .. Peripheral vascular disease, unspecified (Chronic 04/24/21) Moderate RLE PAD, Mild LLE PAD , B[facility] [place] Atherosclerotic cardiovascular disease (Acute) Left bundle branch block (LBBB) (Acute) Restless leg (Acute) Neuro? Neuropathic? Moderate relief with ropinirole (2021) Mild cognitive impairment (Acute) Marlene Huff, joined us 04/24/23 Mild obstructive sleep apnea (Acute) CPAP may be helping .. 11/27/21 [facility] 01/16/22 [facility], f/u 04/2022 Migraine headache without aura (Acute) Irritable bowel syndrome with constipation (Acute) Arthritis of hand (Acute) Neck pain (Acute) Incontinence of bowel (Acute) Episodic Pelvic floor weakness in female (Acute) Hypertension (Chronic) Abdominal bloating (Acute) Fatigue (Acute) Medical History (Updated 04/25/23 @ 12:37 by Davon Massey MD) Abdominal pain Chest pain negative cardiac w/u Encounter for diagnostic colonoscopy due to change in bowel habits Essential hypertension (11/13/11) Fibromyalgia Irritable colon (11/13/11) Lumbar radicular syndrome Non-cardiac chest pain (05/01/15) Peripheral arterial disease SOB (shortness of breath) on exertion Significant worsening x weeks, 03/2021 TTH (tension-type headache) Vulvar pruritus Not responsive to topical estrogen. 09/2019 patient treated with clobetasol cream 11/2019 symptoms improving we will continue twice weekly Surgical History Abdominal hysterectomy Colonoscopy - IV Sedation (11/22/21) 07/07/14 Dr. Meraz History of colonoscopy Hx of hand surgery Oophrectomy, Both Family History Sister Essential hypertension Brother Essential hypertension Sister Rheumatoid arthritis Hypertension Social History Smoking/Tobacco Use Status: Current every day Tobacco Type: cigarettes Tobacco: How many years used: 50 Quit status: quit date established Smoking risk assessment performed?: Yes Alcohol Intake: current Alcohol Intake frequency: holidays/special occasions only Alcohol type: beer Drug use: Never Substance use type: does not use Caregiver/Support person: No Household members: spouse and other Details: Cary-Marvel reese 50yrs Housing: house Number of Children: 2 number of grandchildren: 1 Communication Needs: Corrective Lenses current occupation: retired Current gender identity: female What is your relationship status?: Panel score (0-1 are the most socially isolated patients): 1 What type of physical activity do you participate in: walking Duration: 30-45 minutes/day Frequency: 5-6 times per week Seatbelt use: always Drive intox or ride w/intox driver merchandiser: No Working smoke detector in home: Yes Fire extinguisher in home: Yes Carbon monox detector in home: Yes Do you feel safe at home: Yes Do you feel safe in your relationship?: Yes Victim of physical abuse: No Victim of emotional abuse: No Victim of sexual abuse: No Exam Const General: no acute distress Orientation: alert HENMT Head: normal to inspection Ears: external ears normal General nose exam: external nose normal Mouth: moist mucous membranes Eyes General: appearance normal, both eyes and all related structures Neck Neck: normal visual inspection Resp Effort & Inspection: normal respiratory effort and able to speak in complete sentences Cardio Rate: regular rate Back/Spine/Pelvis Back: no CVA tenderness Thoracic/Lumbar Spine: thoracic and lumbar spine normal to inspection Skin General skin exam: no rashes or lesions noted Neuro General: patient alert and patient oriented x3 Extrem General: normal to inspection Psych Mental Status: mental status grossly normal Course Vital Signs Vital signs: Vital Signs Temperature 36.6 C 04/25/23 10:56 Pulse 56 L 04/25/23 10:56 Respiratory Rate 18 04/25/23 10:56 Blood Pressure 144/111 H 04/25/23 10:56 Pulse Oximetry 98 04/25/23 10:56 Temperature 36.6 C 04/25/23 10:56 Temperature Source Oral 04/25/23 10:56 Pulse 56 L 04/25/23 10:56 Respiratory Rate 18 04/25/23 10:56 Respiratory Effort Normal, Non-Labored 04/25/23 10:59 Blood Pressure 164/88 H 04/25/23 11:00 Pulse Oximetry 98 04/25/23 10:56 Oxygen Delivery Method Room Air 04/25/23 10:56 Oxygen Flow Rate 0 04/25/23 10:56 PAWSS Have you Been Recently Intoxicated or Drunk Within the Last 30 days?: No Have you Ever Experienced Previous Episodes of Alcohol Withdrawal?: No Have you ever Experienced Withdrawal Seizures?: No Have you ever Experienced Delirium Tremens(DT)s?: No Have you ever undergone Alcohol Rehabilitation Treatment (i.e, inpt ot outpatient treatment programs)?: No Have you ever Experienced Blackouts?: No Have you ever Combined Alcohol with other Downers within the last 90 days?: No Have you ever Combined Alcohol with any other Substance of Abuse during the last 90 days?: No Positive Blood Alcohol level on Presentation? [PCS.BAL]: No Evidence of Increased Autonomic Activity (i.e. HR>120, tremor, sweating, agitation, nausea)?: No Result: 0
[2023-04-25] MEDS: Ketorolac 15 MG/ML VIAL IM (11:20)
[2023-04-25] MEDS: HYDROmorphone 2 MG/ML SYR 1 MG IM (11:20)
--- NOTE | 2023-04-25 12:38 | DI.VRAD_ITS ---
PROCEDURE INFORMATION: Exam: XR Lumbosacral Spine Exam date and time: 04/25/2023 11:36 AM Age: 72 years old Clinical indication: Low back pain TECHNIQUE: Imaging protocol: Radiologic exam of the lumbosacral spine. Views: 4 or 5 views. COMPARISON: OT XR Pain [facility] lumbar sp 2V 08/31/2018 9:52 AM FINDINGS: Bones/joints: There is no evidence of acute fracture.There is no evidence of malalignment or dislocation. Intervertebral disc space narrowing at L2 through L4 consistent with degenerative disc disease. Anterior osteophyte formation L1 through L5 Soft tissues: Unremarkable. IMPRESSION: 1. There is no evidence of acute fracture.There is no evidence of malalignment or dislocation. 2. Intervertebral disc space narrowing at L2 through L4 consistent with degenerative disc disease. Dictated and Authenticated by: Ana Maria Sarmiento MD. Ordering:AMBER Mays MD
--- NOTE | 2023-04-26 09:15 | NUR.NOTE ---
Nursing Note: Patient called asking about Advil along with the pain medication prescribed. Per Dr. Kumar she can take 1 to 2 tablets of Advil every 6 hrs. I told her to take it in between the pain medication to help with the pain. Dr. Kumar stated this was good. Patient understood.
== END 2023-04-25 12:46 | disposition home or self-care (01) ==
PROVIDERS: Emergency Provider Emergency Medicine; PCP Student in an Organized Health Care Education/Training Program
DX: M54.50 Low back pain, unspecified (principal); G89.29 Other chronic pain; M54.2 Cervicalgia; J43.9 Emphysema, unspecified; I10 Essential (primary) hypertension; Z79.899 Other long term (current) drug therapy; Z88.2 Allergy status to sulfonamides; Z88.5 Allergy status to narcotic agent; Z88.8 Allergy status to other drugs, medicaments and biological substances
CPT/HCPCS: 96372; 99284; 72110; J1170; J1885

== ENCOUNTER 2023-05-27 03:12 | Outpatient (CLI) | payer MEDICARE, OTHER, SELFPAY ==
--- NOTE | 2023-05-27 07:00 | DI.US_ITS ---
APPROVED REPORT EXAM: Comprehensive 2D, Doppler, and color-flow Echocardiogram Patient Location: Out-Patient Adobe Flex Developer: Rush aLwton RDMS, RVT Indications: SOB, LBBB, HTN, PULM EMPHYSEMA, PVD, ATHEROSCLEROTIC CARDIOVASCULAR DISEASE Other Information Study Quality: Adequate Conclusion Normal left ventricular wall thickness and chamber size. Ejection fraction is 55%. There are no seg mental wall motion abnormalities Normal right ventricular size and systolic function Left atrium is mildly enlarged. Right atrial size is normal Aortic valve is sclerotic and trileaflet without stenosis or regurgitation Mild mitral annular calcification. Mildly thickened mitral leaflets. Trace to mild mitral regurgita tion Normal tricuspid valve with trace regurgitation. Estimated right ventricular systolic pressure is 27 mmHg Wall motion Left Ventricle The left ventricle is normal size. Left ventricular systolic function is normal There is normal left ventricular wall thickness. There is normal LV segmental wall motion. There is no ventricular septal defect visualized. LVEF is 55%. Right Ventricle The right ventricle is normal size. Right ventricular systolic function is grossly normal. The RVSP i s 27.2 mmHg. Atria Left atrium is mildly dilated. The right atrium size is normal. The interatrial septum is intact with no evidence for an atrial septal defect. Aortic Valve The Aortic valve is sclerotic. Aortic valve is trileaflet. There is no aortic valvular stenosis. No a ortic regurgitation is present. Mitral Valve Mitral valve leaflets are mildly thickened. Mild mitral annular calcification. No evidence of mitral valve stenosis. Trace to mild mitral regurgitation. Tricuspid Valve The tricuspid valve is normal in structure. There is no tricuspid valve stenosis. Trace tricuspid reg urgitation. Pulmonic Valve The pulmonary valve is normal in structure. There is no pulmonic valvular stenosis. Trace pulmonic re gurgitation. Great Vessels The aortic root is normal in size. Ascending aorta is not well visualized. Aortic arch is normal in c aliber. IVC is normal in size and collapses >50% with inspiration. Pericardium There is no pericardial effusion. 2D Dimensions IVSD d PLAX 0.71 cm F: 0.6-1.0 LV Vol A2C d MOD 79.5 mL LVPW d PLAX 0.71 cm F: 0.6 - 1.0 LV Vol A4C d MOD 77.5 mL LVID d PLAX 4.24 cm F: 3.8 - 5.2 LA vol/ BSA A4C s A-L 26.6 mL/m2 LVDs 3.05 cm F: 2.2 - 3.5 LA Area A4C s MOD 16.09 cm2 Ao Root d 2.61 cm F: 2.7 - 3.3 LV EF A4C MOD 51.3 % LV EF Teichholz 54.2 % LV EF A2C MOD 52.6 % LVEF (Girard's) 50.81 % F: 54 - 74 LV EF Biplane MOD 50.8 % LV Volume 63.67 mL F: 46 - 106 SV 40.52 mL LV Volume Index 37.89 mL/m2 F: 29 - 61 SV Index 24.18 mL/m2 LV Vol Biplane MOD 79.7 mL FS 27.75 % M-Mode TAPSE 2.23 cm (M/F) >1.7 LV Diastology MV E' medial 0.062 (>0.07 m/s) E/A Ratio 0.9 LV E/e MED 10.95 (<14) MV E Vmax 0.68 (0.4-1.3 m/s) MV E' lateral 0.083 (>0.1 m/s) MV A Vmax 0.75 (0.4-1.3 m/s) LV E/e LAT 8.15 (<14) MV E/A Ratio 0.88 MV E/E' medial 11.00 MV E/E' lateral 8.15 Aortic Valve LVOT Area 3.16 cm2 AoV Area Vmax 2.41 cm2 LVOT Vmax 1.01 m/s AoV Area/ BSA (Vmax) 1.44 cm2/m2 LVOT Mean Lenin. 0.61 m/s JAVIER Mean Lenin. 2.14 cm2 LVOT Peak Grad 4.1 mmHg JAVIER Mean Lenin. Index 1.27 cm2/m2 LVOT Mean Grad 1.8 mmHg LVOT VTI 0.197 m LVOT Diam s 2.00 cm AoV Vmax 1.33 m/s Velocity Ratio 0.76 AoV Mean Lenin. 0.90 m/s AoV Peak Grad 7.0 mmHg LVOT SV 62.17 mL AoV Mean Grad 3.7 mmHg AoV VTI 0.269 m AoV Area VTI 2.32 cm2 AoV Area/ BSA (VTI) 1.38 cm/m2 Mitral Valve MV DT 226 (160-240 msec) MV PHT 66 msec MV Area PHT 3.35 cm2 MV VTI 0.308 m MV Area VTI 2.02 (4.0-6.0 cm2) Pulmonary Valve PV Vmax 1.04 (0.5-1.5 m/s) RVOT Peak Gr. 1.71 mmHg PV Peak Grad 4.4 mmHg RVOT Mean Gr. 0.95 mmHg PV Mean Grad 2.0 mmHg RVOT VTI 0.134 m PV VTI 0.206 m RVOT Vmax 0.65 m/s Tricuspid Valve TR Peak Grad 24.2 mmHg TR Vmax 2.46 m/s RA Pressure 3.00 mmHg RVSP (TR) 27.2 mmHg
== END 2023-05-27 03:32 ==
LOC: DI 03:12
PROVIDERS: PCP Student in an Organized Health Care Education/Training Program; Visit Provider Internal Medicine Cardiovascular Disease
DX: I10 Essential (primary) hypertension (principal); I25.10 Atherosclerotic heart disease of native coronary artery without angina pectoris; I44.7 Left bundle-branch block, unspecified; I73.9 Peripheral vascular disease, unspecified; J43.9 Emphysema, unspecified
CPT/HCPCS: 93306

== ENCOUNTER 2023-05-28 02:33 | Outpatient (CLI) | payer MEDICARE, OTHER, SELFPAY ==
[2023-05-28 07:28] LABS: Abs Immature Grans 0.01 10^3/uL (0.0-0.06); Absolute Basophil Count 0.05 10^3/uL (0.0-0.2); Absolute Eosinophil Count 0.16 10^3/uL (0.0-0.7); Absolute Lymphocyte Count 1.64 10^3/uL (1.2-3.4); Absolute Monocyte Count 0.52 10^3/uL (0.1-0.8); Absolute Neutrophil Count 2.52 10^3/uL (1.2-6.7); Eosinophils % 3.3; HCT 39.9 % (36.0-46.0); HGB 13.5 g/dL (11.2-15.7); Immature Grans % 0.2; Lymphocytes % 33.5; MCH 30.8 pg (27.0-33.0); MCHC 33.8 % (32.0-36.0); MCV 91 fL (80-95); Monocytes % 10.6; Neutrophils % 51.4; Platelet Count 262 10^3/uL (130-400); RBC 4.38 10^6/uL (3.93-5.22); RDW 13.7 % (11.7-14.6)
[2023-05-28 07:42] LABS: ALT 17 U/L (14-59); AST 17 U/L (15-37); Albumin 3.7 g/dL (3.4-5.0); Alkaline Phosphatase 139 U/L (46-116); BUN 19 mg/dL (7-18); Bilirubin, Total 0.4 mg/dL (0.2-1.0); CREATININE 1.2 mg/dL (0.55-1.02); Calcium 8.6 mg/dL (8.5-10.1); Chloride 105 mmol/L (98-107); Glucose 107 mg/dL (74-106); Potassium 4.6 mmol/L (3.5-5.1); Sodium 139 mmol/L (136-145); Total Protein 7.2 g/dL (6.4-8.2)
[2023-05-28 08:05] LABS: Calculated LDL 67 mg/dL (<100); Cholesterol 178 mg/dL (<200); HDL Cholesterol 99 mg/dL (40-60); TSH (W/Ref FT4) 2.23 uIU/mL (0.36-3.74); Triglyceride 64 mg/dL (<150)
[2023-05-28 08:13] LABS: C-Reactive Protein 0.05 mg/dL (0.0-0.3); Lipase 36 U/L (16-77)
[2023-05-28 08:43] LABS: Amylase 80 U/L (25-115)
== END 2023-05-28 02:34 | disposition home or self-care (01) ==
LOC: LBO 02:33
PROVIDERS: Emergency Medicine; Absent Provider Student in an Organized Health Care Education/Training Program; PCP Student in an Organized Health Care Education/Training Program; Visit Provider Student in an Organized Health Care Education/Training Program
DX: Z13.220 Encounter for screening for lipoid disorders (principal); R10.9 Unspecified abdominal pain; M54.50 Low back pain, unspecified; R07.9 Chest pain, unspecified; R10.13 Epigastric pain; I65.29 Occlusion and stenosis of unspecified carotid artery; F41.9 Anxiety disorder, unspecified; M81.0 Age-related osteoporosis without current pathological fracture; J43.9 Emphysema, unspecified; R93.89 Abnormal findings on diagnostic imaging of other specified body structures
CPT/HCPCS: 36415; 80053; 80061; 82306; 83690; 82150; 84443; 85025; 86140

== ENCOUNTER → 2023-06-03 08:59 | Outpatient (BNVA) | payer MEDICARE, OTHER, SELFPAY | PROVIDERS: PCP Student in an Organized Health Care Education/Training Program; Visit Provider Nurse Practitioner Adult Health | DX: R51.9 Headache, unspecified (principal); F39 Unspecified mood [affective] disorder; G89.29 Other chronic pain; M54.2 Cervicalgia | CPT/HCPCS: 64405; 99214 ==

== ENCOUNTER → 2023-06-03 10:22 | Outpatient (BNVA) | payer MEDICARE, OTHER, SELFPAY | PROVIDERS: PCP Student in an Organized Health Care Education/Training Program; Referring Provider Emergency Medicine; Visit Provider Physical Therapy Assistant | DX: R10.13 Epigastric pain (principal); Z12.11 Encounter for screening for malignant neoplasm of colon | CPT/HCPCS: 64405; 99213; 99214 ==

== ENCOUNTER 2023-06-08 01:18 | Outpatient (CLI) | payer MEDICARE, OTHER, SELFPAY ==
--- NOTE | 2023-06-08 08:15 | DI.MRI_ITS ---
Exam(s) MR CERVICAL SPINE WO EXAM: MR CERVICAL SPINE WO CLINICAL HISTORY: evaluate neck joint spaces, cervical region somatic dysfunction, M99.01 TECHNIQUE: Multiplanar multisequence MRI of the cervical spine was performed without intravenous con trast. COMPARISON: No exams were available for comparison FINDINGS: CERVICOMEDULLARY JUNCTION: Intact with no evidence of cerebellar tonsillar ectopia. No obvious abnor mality of the odontoid process. No evidence of Chiari 1 malformation. CERVICAL SPINAL CORD: There is no abnormal signal in the cervical spinal cord and no evidence of foca l cord atrophy nor focal cord swelling. OSSEOUS:There are no cervical fractures evident. No significant osseous lesions in the cervical vert ebrae. Normal cervical curvature is maintained. INDIVIDUAL LEVELS: C2-3: No disc herniation nor central canal stenosis. Mild bilateral facet degenerative changes. Mil d bilateral prominent foraminal stenosis. C3-4: No disc herniation nor central canal stenosis.Right facet unremarkable. Left facet joint exhib its mild degenerative changes. No significant foraminal stenosis C4-5: No disc herniation nor central canal stenosis.No significant facet arthropathy evident at this level. No significant foraminal stenosis. C5-6: This level exhibits moderate disc space narrowing. Mild annular bulging but without a dominant disc herniation. Central canal dimensions are lower normal. Small right-sided Luschka joint osteop hyte. Mild foraminal stenosis on the right side. Luschka joint osteophyte on the left side. Mild f oraminal stenosis on the left side. No significant facet arthropathy evident at this level. C6-7: Advanced chronic-type disc space narrowing. No disc herniation. Central canal dimensions are normal. There are minimal degenerative changes in the facet joints. Mild annular bulging in the exi ting right neural foramen with mild right-sided foraminal stenosis. Also mild annular bulging into t he floor of the exiting left neural foramen with mild left-sided foraminal stenosis also evident. C7-T1: Normal disc height and signal. Mild degenerative anterolisthesis C7 upon T1 which appears to be related to some facet arthropathy. There is no significant foraminal stenosis evident at this lev el. IMPRESSION: 1. Mild multilevel findings as described individually above. 2. There are no prominent disc herniations nor central canal stenosis. 3. There is mild multilevel foraminal stenosis as described above. 4. There are mild multilevel facet joint degenerative changes DATA REPOSITORY:
--- NOTE | 2023-06-08 11:34 | DI.RAD_ITS ---
Exam(s) XR CHEST 2V PA LATERAL EXAM: XR CHEST 2V PA LATERAL CLINICAL HISTORY: chest pain, abd pain, R10.9. TECHNIQUE: 2D digital imaging was performed. COMPARISON: CR XR ABD FLAT UPRIGHT PA CHEST from 12/01/2022 FINDINGS: 2 views: Heart size is normal. The mediastinum is not widened. Lungs are clear. No infiltrates nor pleural effusions. IMPRESSION: No acute pulmonary findings. DATA REPOSITORY: RADIATION DOSE DELIVERED:
== END 2023-06-08 01:38 ==
LOC: DI 01:18
PROVIDERS: PCP Student in an Organized Health Care Education/Training Program; Visit Provider Student in an Organized Health Care Education/Training Program
DX: M99.01 Segmental and somatic dysfunction of cervical region (principal); M47.13 Other spondylosis with myelopathy, cervicothoracic region
CPT/HCPCS: 71046; 72141

== ENCOUNTER 2023-06-10 08:30 | Day surgery (SDC) | payer MEDICARE, OTHER, SELFPAY ==
--- NOTE | 2023-06-10 06:25 | W.ANESPRE ---
General Info Height: 5 ft 3 in Weight: 63.049 kg Body Mass Index (BMI): 24.6 Surgical Procedure: Operation Date: 06/10/23 09:50 Proposed Procedure Side Surgeon p Gastroscopy Alana Kendrick MD Meds Allergies and Home Medications Allergies Allergy/AdvReac Type Severity Reaction Status Date / Time Sulfa (Sulfonamide Allergy Intermediate swelling, Verified 06/10/23 09:05 Antibiotics) hives, itching oxycodone HCl [From Percocet] Allergy Unknown unknown Verified 06/10/23 09:05 cilostazol AdvReac Intermediate Diarrhea Verified 06/10/23 09:05 omeprazole AdvReac Intermediate bloating, Verified 06/10/23 09:05 itching diarrhea, Home Medication Medication Instructions Recorded calcium carbonate 600 mg-vitamin 1 ea PO BID 04/07/17 D3 20 mcg (800 unit) tablet (Caltrate with Vitamin D3) acetaminophen 500 mg tablet (Pain 1,000 mg PO PRN PRN 05/25/18 Reliever Extra Strength (acetaminophen)) aspirin 81 mg tablet,delayed 81 mg PO DAILY 04/24/21 release (Adult Low Dose Aspirin) varenicline 0.5 mg (11)-1 mg (42) See Rx Instructions PO PER PKG DIR 05/29/22 tablets in a dose pack #53 dose pk varenicline 1 mg tablet 1 mg PO BID #56 tabs 05/29/22 ropinirole 1 mg tablet 2 mg PO QHS 06/25/22 gabapentin 600 mg tablet 600 mg PO HS #90 tabs 12/04/22 (Neurontin) albuterol sulfate 90 mcg/actuation 1 puff inhalation QID PRN 01/24/23 aerosol inhaler shortness of breath or wheezing #1 inh cholecalciferol (vitamin D3) 50 50 mcg PO DAILY 90 days #90 caps 03/10/23 mcg (2,000 unit) capsule varenicline 0.5 mg (11)-1 mg (42) See Rx Instructions PO PER PKG DIR 03/24/23 tablets in a dose pack (Chantix #53 dose pk Starting Month Box) atenolol 25 mg tablet 25 mg PO DAILY 04/24/23 rosuvastatin 10 mg tablet (Crestor) 10 mg PO DAILY #90 tabs 05/15/23 duloxetine 30 mg capsule,delayed 30 mg PO DAILY 05/20/23 release pantoprazole 40 mg tablet,delayed 40 mg PO DAILY #90 tabs 05/20/23 release erenumab-aooe 140 mg/mL 140 mg subcut QMONTH #1 mL 06/03/23 subcutaneous auto-injector (Aimovig Autoinjector) fluticasone propionate 50 2 spray intranasal DAILY PRN 06/09/23 mcg/actuation nasal spray,suspension losartan 50 mg tablet 50 mg PO DAILY 06/09/23 tiotropium bromide 2.5 2 inh inhalation QAM #4 grams 06/09/23 mcg/actuation mist for inhalation (Spiriva Respimat) Current Visit Medications: Current Medications Generic Name Dose Route Start Last Admin Trade Name Freq PRN Reason Stop Dose Admin Ringer's Solution 1,000 mls @ 80 mls/hr 06/10/23 06:00 IV 07/09/23 23:59 INFUSION TANA IV Miscellaneous Supplies 1 each 06/10/23 06:00 Iv Access IV 07/09/23 23:59 DIRECTED TANA Sodium Chloride 0 ml 06/10/23 06:00 Normal Saline Flush 10 Ml Syr IV 07/09/23 23:59 PRN PRN Sodium Chloride 0 ml 06/10/23 06:00 Normal Saline 10 Ml Vial IJ 07/09/23 23:59 DIRECTED PRN Sterile Water 0 ml 06/10/23 06:00 Water,Injection,Sterile 10 Ml Vial IJ 07/09/23 23:59 DIRECTED PRN PFSH Active Problems Active Problems: Problem Status Onset Code COPD (chronic obstructive pulmonary disease) J44.9 Anxiety 11/13/11 F41.9 Carotid artery occlusion 11/13/11 I65.29 Depression 06/12/16 F32.9 GERD (gastroesophageal reflux disease) 08/21/14 K21.9 Myalgia and myositis 11/13/11 Osteoporosis 11/13/11 M81.0 Pulmonary emphysema 06/12/16 J43.9 Spinal stenosis, lumbar region, with neurogenic claudication 11/13/11 M48.062 Tobacco dependence 11/13/11 F17.200 Peripheral vascular disease, unspecified 04/24/21 I73.9 Atherosclerotic cardiovascular disease I25.10 Left bundle branch block (LBBB) I44.7 Restless leg G25.81 Mild cognitive impairment G31.84 Mild obstructive sleep apnea G47.33 Migraine headache without aura G43.009 Irritable bowel syndrome with constipation K58.1 Arthritis of hand M19.049 Incontinence of bowel R15.9 Pelvic floor weakness in female N81.89 Hypertension I10 Abdominal bloating R14.0 Fatigue R53.83 Cervical (neck) region somatic dysfunction M99.01 Epigastric pain R10.13 Medical History Medical History Abdominal pain Chest pain negative cardiac w/u Encounter for diagnostic colonoscopy due to change in bowel habits Essential hypertension (11/13/11) Fibromyalgia Irritable colon (11/13/11) Lumbar radicular syndrome Non-cardiac chest pain (05/01/15) Peripheral arterial disease SOB (shortness of breath) on exertion Significant worsening x weeks, 03/2021 TTH (tension-type headache) Vulvar pruritus Not responsive to topical estrogen. 09/2019 patient treated with clobetasol cream 11/2019 symptoms improving we will continue twice weekly Surgical History Surgical History Abdominal hysterectomy Colonoscopy - IV Sedation (11/22/21) 07/07/14 Dr. Meraz History of colonoscopy Hx of hand surgery Oophrectomy, Both Tobacco Smoking/Tobacco Use Status: Current every day Tobacco Type: cigarettes Alcohol Alcohol Intake: current Alcohol intake frequency: a few times a week Alcohol type: beer Substance Use Substance use: Never Substance use type: does not use Vital Signs and Lab Results Lab Results Blood Type / Crossmatch: No Data to Display Complete Blood Count: White Blood Count 4.90 10^3/uL (4.4-10.8) 05/28/23 07:22 Red Blood Count 4.38 10^6/uL (3.93-5.22) 05/28/23 07:22 Hemoglobin 13.5 g/dL (11.2-15.7) 05/28/23 07:22 Hematocrit 39.9 % (36.0-46.0) 05/28/23 07:22 Platelet Count 262 10^3/uL (130-400) 05/28/23 07:22 Complete Metabolic Panel: Sodium 139 mmol/L (136-145) 05/28/23 07:22 Potassium 4.6 mmol/L (3.5-5.1) 05/28/23 07:22 Chloride 105 mmol/L (98-107) 05/28/23 07:22 Carbon Dioxide 24.0 mmol/L (21.0-32.0) 05/28/23 07:22 BUN 19 mg/dL (7-18) H 05/28/23 07:22 Creatinine 1.2 mg/dL (0.55-1.02) H 05/28/23 07:22 Est GFR (CKD-EPI 2020) 47.50 (mL/min/1.73m2) 05/28/23 07:22 Calcium 8.6 mg/dL (8.5-10.1) 05/28/23 07:22 Albumin 3.7 g/dL (3.4-5.0) 05/28/23 07:22 Glucose 107 mg/dL (74-106) H 05/28/23 07:22 C-Reactive Protein 0.05 mg/dL (0.0-0.3) 05/28/23 07:22 Liver Function Panel: Alanine Aminotransferase (ALT/SGPT) 17 U/L (14-59) 05/28/23 07:22 Aspartate Amino Transf (AST/SGOT) 17 U/L (15-37) 05/28/23 07:22 Coagulation Panel: No Data to Display Cardiac Panel: No Data to Display Arterial Blood Gas: No Data to Display Venous Blood Gas: No Data to Display Pancreas Panel: Amylase Level 80 U/L (25-115) 05/28/23 07:22 Lipase 36 U/L (16-77) 05/28/23 07:22 Thyroid Panel: Thyroid Stimulating Hormone (TSH) 2.23 uIU/mL (0.36-3.74) 05/28/23 07:22 Infectious Disease: No Data to Display Blood Cultures: No Data to Display Toxicology Panel: No Data to Display Imaging and Studies Imaging and Studies Study information below may be from another EMR and interpreted by another provider. Please see original notes in EMR for more complete details. EKG Summary: 12/01: sinus geremias, LBBB. 03/2021: sinus rhythm...normal P axis, V-rate 60- 99 Left bundle branch block...QRSd>120, broad/notched R Stress Test Summary: 03/31: 78% predicted HR achieved, ECG was negative. MPI with no evidence of ischemia or infarction, EF 56%. 04/2021: MPI Conclusion Ejection fraction was 67% with stress. There were no wall motion abnormalities. There was no evidence of ischemia on the imaging portion of the exam. This represents a normal SPECT stress test. Echocardiogram Summary: 05/31: LVEF 55%, AoV sclerotic w/o stenosis or regurg, trace to mild MR, trace TR, RVSP 27 mmhg. 04/2021: Conclusion Normal left ventricular wall thickness and chamber size. Estimated ejection fraction is 55%. Wall motion is normal. Normal right ventricular size and systolic function Both atria are normal in size The aortic valve is mildly sclerotic and trileaflet. There is no aortic stenosis or regurgitation Mild mitral annular calcification. Mild mitral regurgitation Normal tricuspid valve with trace to mild regurgitation Normal pulmonic valve with trace regurgitation Carotid Artery Summary:: 04/2017: Mild calcific plaque. No evidence of a significant internal carotid artery stenosis Pulmonary Function Summary: 03/31: mild airflow obstruction with decreased diffusion. consistent with COPD. Anesthesia Assessment and Plan Anesthesia History Personal History: No History of Anesthesia Complications Family History: No Family History of Anesthesia Complications Implantable Cardiac Device Does patient have a Pacemaker or an ICD?: No Airway Exam Known Difficult Airway: No Mallampati Class: 3 Mouth Opening: Normal (> 3cm) Thyromental Distance: Greater than 3 cm Neck Range of Motion: Full ROM Neck Circumference: Normal Teeth Condition: Normal Dentition ASA Classification ASA Score: ASA 3 Emergency Case?: No Anesthesia Plan Resuscitation Status: Full Code Anesthesia Technique: General Anesthesia Airway Planned: Natural Airway Monitors Used: Standard Monitors Preoperative Comments:: 72 yo female with epigastric pain/pressure for EGD. Sig PMHx: HTN, carotid stenosis, RAYMUNDO, COPD (gold 1, spiriva/albuterol), emphysema, depression/anxiety, GERD, smoker, migraine, occ EtOH. Previous Anes: - colo, prop, natural airway, no issues.
[2023-06-10 08:49] VITALS: BP 150/81; PULSE 72; RESP 16; TEMP 36.5; O2SAT 97
--- NOTE | 2023-06-10 09:01 | W.PM.PROGNOT ---
Date of Service Date of service: 06/10/23 Time of Service: 09:01 Assessment and Plan Assessment and plan (1) GERD (gastroesophageal reflux disease): Status: Acute Assessment and plan: Floridalma is a 32-year-old female with epigastric discomfort and bloating. She was started on pantoprazole without improvement in her symptoms. We reviewed the procedure as well as the risks, benefits and complications. After our conversation the patient had a good understanding of both the procedure and the complications and wished to proceed. Risks, benefits and complications have been reviewed. Complications include but are not limited to bleeding, pain, perforation, sore throat, aspiration, and adverse reaction to the medications. Questions were entertained and answered to their satisfaction and they wished to proceed. No guarantees were given or implied. Proceed with EGD under sedation. (2) Epigastric pain: Status: Acute (3) Abdominal bloating: Status: Acute Subjective Subjective Interval history since last seen: From H&P: 72-year-old female with a history of RAYMUNDO, hypertension, GERD, depression, anxiety, epigastric pain, irritable bowel and left bundle branch block presents for further evaluation of epigastric pain that is midsternal in location.? She was seen initially in the ER and November 2022 at which time she was started on pantoprazole she has been taking this and for short period of time switched to famotidine but has returned to pantoprazole with some improvement in her symptoms.? However she continues to have excessive burping, pressure in her epigastric region, abdominal bloating and nausea after eating.? She states that she tries to eat a healthy diet with large salads for lunch sometimes some yogurt for breakfast.? She does enjoy drinking Diet Coke and states that she has cut back to 312 ounce sodas a day.? She drinks alcohol several times a week and smokes on average of 6 to 7 cigarettes a day. I saw Nina in same-day surgery today prior to her procedure. She is a very pleasant 72-year-old female who complains of heaviness/pressure in the subxiphoid and lower chest in the midline as well as increased bloating. She was started on pantoprazole but has not really noticed much improvement in her symptoms. She denies any nausea or vomiting. She denies any right upper quadrant or postprandial pain. I reviewed her past medical history which includes COPD carotid artery occlusion, depression, myalgia and myositis, emphysema, spinal stenosis, peripheral vascular disease, left bundle branch block, restless leg, mild cognitive impairment, migraine headaches with aura, irritable bowel syndrome with constipation, hypertension cervical region somatic dysfunction. Exam Const General: cooperative, comfortable and no acute distress Orientation: alert and oriented x3 HENMT Head: normocephalic and atraumatic Resp Effort & Inspection: normal respiratory effort Auscultation: clear to auscultation bilaterally Cardio Rate: regular rate Rhythm: regular rhythm GI Inspection: normal to inspection Palpation: soft, no hepatosplenomegaly and nontender Objective Last Vital Signs Temp 97.7 F 06/10/23 08:49 Pulse 72 06/10/23 08:49 Resp 16 06/10/23 08:49 BP 150/81 H 06/10/23 08:49 Pulse Ox 97 06/10/23 08:49 Time Spent with Patient Time Spent with Patient: <25 minutes Time was spent: obtaining and/or reviewing separately otained hiistory, indepentently interpreting results and counseling the patient
--- NOTE | 2023-06-10 09:10 | W.ANESPRE ---
General Info Date of Service Date Performed: 06/10/23 Height: 5 ft 3 in Weight: 66.2 kg Body Mass Index (BMI): 25.8 Surgical Procedure: Operation Date: 06/10/23 09:50 Proposed Procedure Side Surgeon p Gastroscopy Alana Kendrick MD Actual Procedure Side Surgeon p Gastroscopy with biopsies Not Applicable Alana Kendrick MD Meds Allergies and Home Medications Allergies Allergy/AdvReac Type Severity Reaction Status Date / Time Sulfa (Sulfonamide Allergy Intermediate swelling, Verified 06/10/23 09:05 Antibiotics) hives, itching oxycodone HCl [From Percocet] Allergy Unknown unknown Verified 06/10/23 09:05 cilostazol AdvReac Intermediate Diarrhea Verified 06/10/23 09:05 omeprazole AdvReac Intermediate bloating, Verified 06/10/23 09:05 itching diarrhea, Home Medication Medication Instructions Recorded calcium carbonate 600 mg-vitamin 1 ea PO BID 04/07/17 D3 20 mcg (800 unit) tablet (Caltrate with Vitamin D3) acetaminophen 500 mg tablet (Pain 1,000 mg PO PRN PRN 05/25/18 Reliever Extra Strength (acetaminophen)) aspirin 81 mg tablet,delayed 81 mg PO DAILY 04/24/21 release (Adult Low Dose Aspirin) varenicline 0.5 mg (11)-1 mg (42) See Rx Instructions PO PER PKG DIR 05/29/22 tablets in a dose pack #53 dose pk varenicline 1 mg tablet 1 mg PO BID #56 tabs 05/29/22 ropinirole 1 mg tablet 2 mg PO QHS 06/25/22 gabapentin 600 mg tablet 600 mg PO HS #90 tabs 12/04/22 (Neurontin) albuterol sulfate 90 mcg/actuation 1 puff inhalation QID PRN 01/24/23 aerosol inhaler shortness of breath or wheezing #1 inh cholecalciferol (vitamin D3) 50 50 mcg PO DAILY 90 days #90 caps 03/10/23 mcg (2,000 unit) capsule varenicline 0.5 mg (11)-1 mg (42) See Rx Instructions PO PER PKG DIR 03/24/23 tablets in a dose pack (Chantix #53 dose pk Starting Month Box) atenolol 25 mg tablet 25 mg PO DAILY 04/24/23 rosuvastatin 10 mg tablet (Crestor) 10 mg PO DAILY #90 tabs 05/15/23 duloxetine 30 mg capsule,delayed 30 mg PO DAILY 05/20/23 release pantoprazole 40 mg tablet,delayed 40 mg PO DAILY #90 tabs 05/20/23 release erenumab-aooe 140 mg/mL 140 mg subcut QMONTH #1 mL 06/03/23 subcutaneous auto-injector (Aimovig Autoinjector) fluticasone propionate 50 2 spray intranasal DAILY PRN 06/09/23 mcg/actuation nasal spray,suspension losartan 50 mg tablet 50 mg PO DAILY 06/09/23 tiotropium bromide 2.5 2 inh inhalation QAM #4 grams 06/09/23 mcg/actuation mist for inhalation (Spiriva Respimat) Current Visit Medications: Current Medications Generic Name Dose Route Start Last Admin Trade Name Freq PRN Reason Stop Dose Admin Ringer's Solution 1,000 mls @ 80 mls/hr 06/10/23 06:00 IV 07/09/23 23:59 INFUSION TANA IV Miscellaneous Supplies 1 each 06/10/23 06:00 Iv Access IV 07/09/23 23:59 DIRECTED TANA Sodium Chloride 0 ml 06/10/23 06:00 Normal Saline Flush 10 Ml Syr IV 07/09/23 23:59 PRN PRN Sodium Chloride 0 ml 06/10/23 06:00 Normal Saline 10 Ml Vial IJ 07/09/23 23:59 DIRECTED PRN Sterile Water 0 ml 06/10/23 06:00 Water,Injection,Sterile 10 Ml Vial IJ 07/09/23 23:59 DIRECTED PRN PFSH Active Problems Active Problems: Problem Status Onset Code COPD (chronic obstructive pulmonary disease) J44.9 Anxiety 11/13/11 F41.9 Carotid artery occlusion 11/13/11 I65.29 Depression 06/12/16 F32.9 GERD (gastroesophageal reflux disease) 08/21/14 K21.9 Myalgia and myositis 11/13/11 Osteoporosis 11/13/11 M81.0 Pulmonary emphysema 06/12/16 J43.9 Spinal stenosis, lumbar region, with neurogenic claudication 11/13/11 M48.062 Tobacco dependence 11/13/11 F17.200 Peripheral vascular disease, unspecified 04/24/21 I73.9 Atherosclerotic cardiovascular disease I25.10 Left bundle branch block (LBBB) I44.7 Restless leg G25.81 Mild cognitive impairment G31.84 Mild obstructive sleep apnea G47.33 Migraine headache without aura G43.009 Irritable bowel syndrome with constipation K58.1 Arthritis of hand M19.049 Incontinence of bowel R15.9 Pelvic floor weakness in female N81.89 Hypertension I10 Abdominal bloating R14.0 Fatigue R53.83 Cervical (neck) region somatic dysfunction M99.01 Epigastric pain R10.13 Medical History Medical History Abdominal pain Chest pain negative cardiac w/u Encounter for diagnostic colonoscopy due to change in bowel habits Essential hypertension (11/13/11) Fibromyalgia Irritable colon (11/13/11) Lumbar radicular syndrome Non-cardiac chest pain (05/01/15) Peripheral arterial disease SOB (shortness of breath) on exertion Significant worsening x weeks, 03/2021 TTH (tension-type headache) Vulvar pruritus Not responsive to topical estrogen. 09/2019 patient treated with clobetasol cream 11/2019 symptoms improving we will continue twice weekly Medical History Comments:: 06/10/23 pt reports she has CPAP but hasnt used for 8 weeks Surgical History Surgical History Abdominal hysterectomy Colonoscopy - IV Sedation (11/22/21) 07/07/14 Dr. Meraz History of colonoscopy Hx of hand surgery Oophrectomy, Both Tobacco Smoking/Tobacco Use Status: Current every day Tobacco Type: cigarettes Alcohol Alcohol Intake: current Alcohol intake frequency: a few times a week Alcohol type: beer Substance Use Substance use: Never Substance use type: does not use Vital Signs and Lab Results Vital Signs Most Recent Vital Signs in EMR: Most Recent Vital Signs Temp Pulse Resp BP Pulse Ox 36.5 C 72 16 150/81 H 97 06/10/23 08:49 06/10/23 08:49 06/10/23 08:49 06/10/23 08:49 06/10/23 08:49 Lab Results Blood Type / Crossmatch: No Data to Display Complete Blood Count: White Blood Count 4.90 10^3/uL (4.4-10.8) 05/28/23 07:22 Red Blood Count 4.38 10^6/uL (3.93-5.22) 05/28/23 07:22 Hemoglobin 13.5 g/dL (11.2-15.7) 05/28/23 07:22 Hematocrit 39.9 % (36.0-46.0) 05/28/23 07:22 Platelet Count 262 10^3/uL (130-400) 05/28/23 07:22 Complete Metabolic Panel: Sodium 139 mmol/L (136-145) 05/28/23 07:22 Potassium 4.6 mmol/L (3.5-5.1) 05/28/23 07:22 Chloride 105 mmol/L (98-107) 05/28/23 07:22 Carbon Dioxide 24.0 mmol/L (21.0-32.0) 05/28/23 07:22 BUN 19 mg/dL (7-18) H 05/28/23 07:22 Creatinine 1.2 mg/dL (0.55-1.02) H 05/28/23 07:22 Est GFR (CKD-EPI 2020) 47.50 (mL/min/1.73m2) 05/28/23 07:22 Calcium 8.6 mg/dL (8.5-10.1) 05/28/23 07:22 Albumin 3.7 g/dL (3.4-5.0) 05/28/23 07:22 Glucose 107 mg/dL (74-106) H 05/28/23 07:22 C-Reactive Protein 0.05 mg/dL (0.0-0.3) 05/28/23 07:22 Liver Function Panel: Alanine Aminotransferase (ALT/SGPT) 17 U/L (14-59) 05/28/23 07:22 Aspartate Amino Transf (AST/SGOT) 17 U/L (15-37) 05/28/23 07:22 Coagulation Panel: No Data to Display Cardiac Panel: No Data to Display Arterial Blood Gas: No Data to Display Venous Blood Gas: No Data to Display Pancreas Panel: Amylase Level 80 U/L (25-115) 05/28/23 07:22 Lipase 36 U/L (16-77) 05/28/23 07:22 Thyroid Panel: Thyroid Stimulating Hormone (TSH) 2.23 uIU/mL (0.36-3.74) 05/28/23 07:22 Infectious Disease: No Data to Display Blood Cultures: No Data to Display Toxicology Panel: No Data to Display Imaging and Studies Imaging and Studies Study information below may be from another EMR and interpreted by another provider. Please see original notes in EMR for more complete details. EKG Summary: 12/01: sinus geremias, LBBB. 03/2021: sinus rhythm...normal P axis, V-rate 60- 99 Left bundle branch block...QRSd>120, broad/notched R Stress Test Summary: 03/31: 78% predicted HR achieved, ECG was negative. MPI with no evidence of ischemia or infarction, EF 56%. 04/2021: MPI Conclusion Ejection fraction was 67% with stress. There were no wall motion abnormalities. There was no evidence of ischemia on the imaging portion of the exam. This represents a normal SPECT stress test. Echocardiogram Summary: 05/31: LVEF 55%, AoV sclerotic w/o stenosis or regurg, trace to mild MR, trace TR, RVSP 27 mmhg. 04/2021: Conclusion Normal left ventricular wall thickness and chamber size. Estimated ejection fraction is 55%. Wall motion is normal. Normal right ventricular size and systolic function Both atria are normal in size The aortic valve is mildly sclerotic and trileaflet. There is no aortic stenosis or regurgitation Mild mitral annular calcification. Mild mitral regurgitation Normal tricuspid valve with trace to mild regurgitation Normal pulmonic valve with trace regurgitation Carotid Artery Summary:: 04/2017: Mild calcific plaque. No evidence of a significant internal carotid artery stenosis Pulmonary Function Summary: 03/31: mild airflow obstruction with decreased diffusion. consistent with COPD. Anesthesia Assessment and Plan Anesthesia History Personal History: No History of Anesthesia Complications Family History: No Family History of Anesthesia Complications Exercise Tolerance Exercise Tolerance: Metabolic Equivalents>4 Pertinent Negatives Pertinent Negatives: No Major Cardiovascular Symptoms or Complaints and No Major Pulmonary Symptoms or Complaints Cardiac & Pulmonary Exam Cardiac Exam: Normal S1/S2 Heart Sounds Pulmonary Exam: Wheezing Present (Expiratory, SERGIO) Implantable Cardiac Device Does patient have a Pacemaker or an ICD?: No Airway Exam Known Difficult Airway: No Mallampati Class: 3 Mouth Opening: Normal (> 3cm) Thyromental Distance: Greater than 3 cm Neck Range of Motion: Full ROM Neck Circumference: Normal Teeth Condition: Normal Dentition ASA Classification ASA Score: ASA 3 Emergency Case?: No NPO Status NPO Status: NPO Clears >2 hours, Solids >8 hours Anesthesia Plan Resuscitation Status: Full Code Anesthesia Technique: General Anesthesia Airway Planned: Natural Airway Monitors Used: Standard Monitors
[2023-06-10] MEDS: Lactated Ringers 1,000 ML 80 ML IV (09:23)
[2023-06-10 09:25] VITALS: BMI 25.8
--- NOTE | 2023-06-10 09:38 | W.PM.DSUDISC ---
Date of service: 06/10/23 Time of Service: 10:16 Discharge Plan Disposition Patient Disposition: Home Condition: Stable Discharge Details Reason For Visit: GERD Attending Provider: Alana Kendrick Primary Care Provider: Veronica Meek Home Meds and New Rx's Prescriptions: New sucralfate [Carafate] 1 gram tablet 1 g PO QACHS Qty: 56 0RF Continued fluticasone propionate 50 mcg/actuation spray,suspension 2 spray intranasal DAILY PRN Rx Instructions: administer into each nostril losartan 50 mg tablet 50 mg PO DAILY Rx Instructions: Continue for BP, OK @ DAILY DOSING for now Spiriva Respimat 2.5 mcg/actuation mist 2 inh inhalation QAM Qty: 4 12RF varenicline [Chantix Starting Month Box] 0.5 mg (11)- 1 mg (42) tablets,dose pack See Rx Instructions PO PER PKG DIR Qty: 53 0RF Rx Instructions: PO PER PKG DIR . Initial:Days 1 to 3: 0.5 mg once daily.Days 4 to 7: 0.5 mg twice daily. Maintenance (day 8 and later): 1 mg twice daily; may consider a temporary or permanent dose reduction if usual dose is not tolerated (Ref). Duration: Continue maintenance dose for at least 11 weeks (for a total of at least 12 weeks of treatment). May consider extended maintenance therapy based on individual patient risk:benefit; evidence suggests relapse prevention benefits with continuing therapy for up to 1 year (Ref). Approaches to selecting a tobacco quit date: May either choose a fixed quit date (ie, start varenicline, then quit on day 8) or a flexible quit date (ie, start varenicline, then quit between days 8 to 35). Alternatively, a gradual quit date (ie, start varenicline and reduce smoking 50% by week 4, reduce an additional 50% by week 8, and continue reducing with a goal of complete abstinence by week 12) is acceptable (Ref). ropinirole 1 mg tablet 2 mg PO QHS Rx Instructions: Must administer 2 hours before bedtime varenicline 0.5 mg (11)- 1 mg (42) tablets,dose pack See Rx Instructions PO PER PKG DIR Qty: 53 0RF Hold Instructions: Home Medication placed on hold at Doctor's office Rx Instructions: PO PER PKG DIR varenicline 1 mg tablet 1 mg PO BID Qty: 56 1RF Hold Instructions: Home Medication placed on hold at Doctor's office Rx Instructions: Start after the starting kit. gabapentin [Neurontin] 600 mg tablet 600 mg PO HS Qty: 90 3RF atenolol 25 mg tablet 25 mg PO DAILY Rx Instructions: Take (1/2) to trial taper off BB albuterol sulfate 90 mcg/actuation HFA aerosol inhaler 1 puff inhalation QID PRN (Reason: shortness of breath or wheezing) Qty: 1 2RF Rx Instructions: 1-2 puffs up to 4 times a day as needed for shortness of breath cholecalciferol (vitamin D3) 50 mcg (2,000 unit) capsule 50 mcg PO DAILY 90 Days Qty: 90 4RF Aimovig Autoinjector 140 mg/mL auto-injector 140 mg subcut QMONTH Qty: 1 11RF duloxetine 30 mg capsule,delayed release(DR/EC) 30 mg PO DAILY pantoprazole 40 mg tablet,delayed release (DR/EC) 40 mg PO DAILY Qty: 90 0RF calcium carbonate-vitamin D3 [Caltrate with Vitamin D3] 1 EACH tablet 1 ea PO BID aspirin [Adult Low Dose Aspirin] 81 mg tablet,delayed release (DR/EC) 81 mg PO DAILY Rx Instructions: per note dated 04/24/21 [facility] [place] [facility] rosuvastatin [Crestor] 10 mg tablet 10 mg PO DAILY Qty: 90 3RF acetaminophen [Pain Reliever ES(acetaminophn)] 500 MG tablet 1,000 mg PO PRN PRN Discharge Instructions Instructions: Gastritis (DC), Diet for Stomach Ulcers and Gastritis (ED), Duodenitis (DC) Additional Instructions: Findings: inflammation of duodenum and stomach new Medications: carafate 1 gm before meals and at bedtime Diet: low acid Follow up: 10 days Please call if you develop: fevers >101.5 Nausea or Vomiting Abdominal pain that is not transient Rectal bleeding that is more then a tbsp A hard abdomen and inability to pass gas DAY SURGERY UNIT POST ENDOSCOPY INSTRUCTIONS Instructions for everyone who is given Anesthesia: For your safety, please do the following for the next 24 Hours: a. Do not drive or operate dangerous equipment b. Do not drink alcohol beverages or use any recreational drugs for the first 24 hours or while taking pain medications. The medications in your body may have a reaction that can be dangerous. c. Do not make any important decisions or sign any important papers 1. Generally there are no restrictions on your activity after a day or so has gone by, but you may feel a bit fatigued for a few days. 2. After you arrive home you may have a light meal and return to a normal diet as you can tolerate it without feeling sick to your stomach. 3. After surgery, you may feel pain or discomfort. This should be only transient, but if it persists please contact your doctor. 4. If there are any questions regarding the findings of your procedure, please feel free to contact your doctor. 6. If you are unable to contact your doctor with a problem, contact the hospital at [phone]. 7. Continue all your regular medications unless directed otherwise. I understand the above instructions and have no questions. Signature of Patient or Responsible Adult Escort Date/Time Name of Responsible Adult Escort Signature of Nurse Date/Time Referrals: Alana Kendrick MD [ [facility] STAFF PHYSICIAN] - 06/22/23 9:00 am Activity:: Activity as Tolerated Diet:: as above Discharge Orders Discharge Orders: Discharge Order (Routine); Ordered 06/10/23 Ordered By: Alana Kendrick DS: Diagnosis Discharge Diagnosis (1) GERD (gastroesophageal reflux disease): Status: Acute Asessment and Plan: Patient is seen and examined after their endoscopy. Patient has minimal sore throat. They have been able to tolerate liquids. They do not have any Nausea or Vomiting. They are not having any chest pain or shortness of breath. They have been able to pass gas and are not having any abdominal pain or distention. they have not vomited any blood. The vital signs have been stable-see nursing notes. We discussed findings on their endoscopy We reviewed the importance of lifestyle modifications- see diet recommendations We reviewed any new medications that the patient may be prescribed- see medicine reconciliation. Patient will either be sent a letter with the biopsy results or follow up in the office- see discharge instructions Patient was given explicit instructions for emergency follow up post endoscopy- see discharge instructions Patient verbalized understanding and was discharged in stable and satisfactory condition. See nursing notes. (2) Epigastric pain: Status: Acute (3) Abdominal bloating: Status: Acute
--- NOTE | 2023-06-10 09:48 | STOM_PTH ---
PATIENT: Floridalma Ibarra LOC: [facility] U#:[id number] AGE/SX: 72/F ROOM: RE06/10/[address]: Alana Kendrick MD : [id number] BED: DIS: 06/10/2023 SPEC #: [id number] RECD: 06/10/23 12:47 STATUS: DORENE REQ #: [id number] HORTENCIA: 06/10/23 09:[address]: Alana Kendrick DEPT: Surgical Specimen RECD BY: Didi Suarez ENTERED: 06/10/23 12:51 SP TYPE: STOMACH OTHR DR: Veronica Meek DO Tissues: 1 - BIOPSY BOWEL 2 - BIOPSY BOWEL 3 - BIOPSY BOWEL Procedures: GROSS AND MICRO LEVEL 4 Comments: [id number]
[2023-06-10 10:06] VITALS: BP 126/58; PULSE 55; RESP 16; TEMP 36.2; O2SAT 96
--- NOTE | 2023-06-10 10:16 | ENDO_ITS ---
Date of service: 06/10/23 Time of Service: 09:46 Endoscopy Report DATE OF PROCEDURE: 06/10/23 PRE-OP DIAGNOSIS: GERD, bloating POST-OP DIAGNOSIS: other (duodenitis, gastritis) PROCEDURE: EGD with biopsies SURGEON: Alana Kendrick ANESTHESIA TYPE: General:No Airway ESTIMATED BLOOD LOSS: 2 PATHOLOGY: other (Bx of duodenium, antrum and GE junction) COMPLICATIONS: None DISPOSITION: same day INDICATIONS: Floridalma is a 32-year-old female with epigastric discomfort and bloating.? She was started on pantoprazole without improvement in her symptoms.? We reviewed the procedure as well as the risks, benefits and complications.? After our conversation the patient had a good understanding of both the procedure and the complications and wished to proceed.? Risks, benefits and complications have been reviewed. Complications include but are not limited to bleeding, pain, perforation, sore throat, aspiration, and adverse reaction to the medications.? Questions were entertained and answered to their satisfaction and they wished to proceed. No guarantees were given or implied. FINDINGS: inflammation of the 2nd and 3rd portion of the duodenum Stomach with inflammation PROCEDURE DESCRIPTION: After informed consent was obtained the patient was take to the procedure room and placed in a supine position. Monitors were applied and a time out was done. The patients name, date of , procedure type, allergies to medications and metal in their body was reviewed. A bite block was placed and the patient was sedated. Once sedated and comfortable the gastroscope was advanced through the oropharynx which was grossly normal into the esophagus. The proximal and mid- esophagus were normal. In the distal esophagus there was no inflammation noted. The scope was advanced into the stomach and through the pylorus into the 3rd portion of the duodenum. The duodenum was noted to be inflamed. Biopsies were done . The scope was retracted back into the stomach and biopsies were done to rule out H. pylori. There were no ulcers. The scope was retroflexed. The cardia and fundus were noted to be normal. There was no hiatal hernia noted. The scope was retracted back into the esophagus and biopsies were done of the GE junction to rule out Calvert's. The Z line was regular. The GE junction was at 38 cm. The scope was removed and the patient was woken up and taken back to [facility] in stable condition.
--- NOTE | 2023-06-10 10:27 | W.ANESPOSTOP ---
Postoperative Evaluation Date, Time and Location Date Performed: 06/10/23 Time Performed: 10:25 Patient Location: Day Surgery Unit Vital Signs Most Recent Imported Vital Signs: Most Recent Vital Signs Temp Pulse Resp BP Pulse Ox 36.2 C L 55 L 16 126/58 L 96 06/10/23 10:06 06/10/23 10:06 06/10/23 10:06 06/10/23 10:06 06/10/23 10:06 Pain Score Most Recent Pain Score: Most Recent Pain Score Pain Level 0 06/10/23 10:06 Assessment Mental Status: Awake (Alert & Oriented to Patient Baseline) Airway and Respiratory Function: Patent airway with normal (patient baseline) respiratory exam Cardiovascular Function: Hemodynamically Stable Hydration Status: Adequately Hydrated Nausea & Vomiting: No Nausea or Vomiting Pain: Pt. Denies Any Pain Peripheral Nerve Block: Patient did not receive a nerve block
[2023-06-10 10:39] VITALS: BP 155/65; PULSE 55; RESP 16; TEMP 36.4; O2SAT 99
== END 2023-06-10 10:51 | disposition home or self-care (01) ==
PROVIDERS: PCP Student in an Organized Health Care Education/Training Program; Visit Provider Surgery
PROC: 0DJ68ZZ Inspection of Stomach, Via Natural or Artificial Opening Endoscopic (ICD-10-PCS; CPT 43235; principal; 2023-06-10 09:45)
DX: K21.9 Gastro-esophageal reflux disease without esophagitis (principal); R14.0 Abdominal distension (gaseous); K29.70 Gastritis, unspecified, without bleeding; K29.80 Duodenitis without bleeding; K22.89 Other specified disease of esophagus
CPT/HCPCS: 43239; 88305; J2001; J2704

== ENCOUNTER → 2023-06-19 00:58 | Outpatient (CLI) | payer MEDICARE, OTHER, SELFPAY ==
--- NOTE | 2023-06-19 08:00 | DI.CT_ITS ---
Exam(s) CT ABDOMEN PELVIS W EXAM: CT ABDOMEN PELVIS W CLINICAL HISTORY: EPIGASTRIC PAIN,H/O COLITIS,R10.13,Z87.19. TECHNIQUE: Imaging Protocol: Axial computed tomography images with coronal and sagittal reformatted images were created and reviewed CONTRAST MATERIAL: Intravenous: Omnipaque 350 Contrast volume:100 ml Oral: yes / COMPARISON: CT CT CHEST PE CTA from 04/03/2021 FINDINGS: ABDOMEN: Lung Bases: Emphysematous changes. Liver: Normal density. No measurable mass. Gallbladder and biliary tract: No radiodense calculus or dilation. Pancreas: Normal density, no abnormal calcifications or inflammatory process. Spleen: Normal. Kidneys: Right kidney appears mildly atrophic. Small tiny bilateral renal cysts. No radiodense ston es or obstructive uropathy. No suspicious masses seen. Adrenal glands: No masses seen. Abdominal Aorta: Abdominal portion non-dilated. Severe atherosclerotic changes. Severe stenosis le ft a common iliac artery. Severe stenosis bilateral common femoral arteries. Heavy calcification at the origin of the right renal artery. Soft tissues: Unremarkable. PELVIS: Bladder: No gross wall thickening. No calculi.No focal mass. Bowel: Large quantity of stool seen throughout the colon. no obstruction. No bowel wall thickening . Appendix normal. Peritoneal cavity: No ascites, collection or mesenteric inflammatory response. Bones: Degenerative changes in the spine. Reproductive organs: Status post hysterectomy. Lymph nodes: Unremarkable. Impression: No acute abnormality. Large quantity of stool consistent with constipation. Severe atherosclerotic changes. RADIATION DOSE DELIVERED: 764.11mGy.cm Total DLP DATA REPOSITORY: All CT scans at this facility are submitted to the National Radiology Data Registry (NRDR) Dose Index Registry (DIR) with the [employer] (ACR). RADIATION OPTIMIZATION: All CT scans at this facility use at least one of these dose optimization te chniques: automated exposure control; mA and/or kV adjustment per patient size (includes targeted exa ms where dose is matched to clinical indication); or iterative reconstruction.
[2023-06-19] MEDS: Barium Sulfate 2% W/V-Creamy Vanilla Smoothie 450 ML BTL PO (11:03)
[2023-06-19 11:38] LABS: Anion Gap 10.2 mmol/L (3-11); BUN 17 mg/dL (7-18); CO2 25.8 mmol/L (21.0-32.0); CREATININE 1.4 mg/dL (0.55-1.02); Calcium 9.1 mg/dL (8.5-10.1); Chloride 102 mmol/L (98-107); Estimated GFR 39.48 (mL/min/1.73m2); Glucose 103 mg/dL (74-106); Potassium 4.5 mmol/L (3.5-5.1); Sodium 138 mmol/L (136-145)
[2023-06-19 12:06] LABS: Vitamin D 25 Total 32.3 ng/mL (30-100)
[2023-06-19] MEDS: Omnipaque 350 MG/ML 100 ML BTL IJ (13:19)
[2023-06-19] MEDS: Normal Saline - Diluent 50 ML VIAL IJ (13:20)
== END ==
PROVIDERS: PCP Student in an Organized Health Care Education/Training Program; Visit Provider Student in an Organized Health Care Education/Training Program
DX: I10 Essential (primary) hypertension (principal); R79.89 Other specified abnormal findings of blood chemistry; M81.0 Age-related osteoporosis without current pathological fracture; R10.13 Epigastric pain; Z87.19 Personal history of other diseases of the digestive system
CPT/HCPCS: 80048; 82306; 74177; J3490

== ENCOUNTER → 2023-06-22 08:56 | Outpatient (BNVA) | payer MEDICARE, OTHER, SELFPAY | PROVIDERS: PCP Student in an Organized Health Care Education/Training Program; Referring Provider Student in an Organized Health Care Education/Training Program; Visit Provider Surgery | DX: R14.0 Abdominal distension (gaseous) (principal); R10.13 Epigastric pain | CPT/HCPCS: 99212; 99213 ==

== ENCOUNTER → 2023-06-29 03:56 | Outpatient (CLI) | payer MEDICARE, OTHER, SELFPAY ==
--- NOTE | 2023-06-29 08:42 | DI.US_ITS ---
Exam(s) US ABDOMEN LIMITED EXAM: US ABDOMEN LIMITED CLINICAL HISTORY: Bloating/EPIGASTRI pain,NL EGD,R10.13,R14.0 TECHNIQUE: Ultrasound abdomen performed using standard protocol. COMPARISON: CT CT ABDOMEN PELVIS W from 06/19/2023 FINDINGS: PANCREAS: Normal where visualized. LIVER: Normal. Hepatopedal flow in the Portal Vein. The liver measures in 12.4 cm length. GALLBLADDER: No evidence of cholelithiasis. No evidence of wall thickening. No pericholecystic fluid identified. BILIARY SYSTEM: Common bile duct measures < 7 mm. No intrahepatic biliary ductal dilation. HERNANDEZ'S SIGN: Negative. RIGHT KIDNEY: Kidney is normal in size. No evidence of renal calculi. No evidence of hydronephrosis. No renal mass or cyst identified. ASCITES: None seen. ABDOMINAL AORTA AND IVC: Visualized portions normal caliber. IMPRESSION: Normal sonographic appearance of the upper abdomen. DATA REPOSITORY:
== END ==
PROVIDERS: PCP Student in an Organized Health Care Education/Training Program; Visit Provider Surgery
DX: R10.13 Epigastric pain (principal); R14.0 Abdominal distension (gaseous)
CPT/HCPCS: 76705

== ENCOUNTER 2023-07-20 01:54 | Outpatient (CLI) | payer MEDICARE, OTHER, SELFPAY ==
[2023-07-20 13:21] LABS: Anion Gap 8.1 mmol/L (3-11); BUN 27 mg/dL (7-18); CO2 24.9 mmol/L (21.0-32.0); CREATININE 1.2 mg/dL (0.55-1.02); Calcium 9.5 mg/dL (8.5-10.1); Chloride 99 mmol/L (98-107); Glucose 100 mg/dL (74-106); Potassium 5.5 mmol/L (3.5-5.1); Sodium 132 mmol/L (136-145)
== END 2023-07-20 01:55 | disposition home or self-care (01) ==
LOC: LBO 01:54
PROVIDERS: Absent Provider Student in an Organized Health Care Education/Training Program; PCP Student in an Organized Health Care Education/Training Program; Visit Provider Student in an Organized Health Care Education/Training Program
DX: R73.09 Other abnormal glucose (principal); R79.89 Other specified abnormal findings of blood chemistry
CPT/HCPCS: 36415; 80048; 83036

== ENCOUNTER → 2023-07-22 01:48 | Outpatient (CLI) | payer MEDICARE, OTHER, SELFPAY ==
--- NOTE | 2023-07-22 06:45 | DI.NM_ITS ---
Exam(s) NM HEPATOBILIARY CCK GRP EXAM: NM HEPATOBILIARY CCK GRP CLINICAL HISTORY: NL EGD and US- ? dyskinesia,epigastric pain, abd bloating,r10.13,r14.0. TECHNIQUE: Injected dose: 5 mCi Tc-99 mebrofenin Initial dynamic images: 60 minutes Post-Gallbladder fillin.02 mcg/kg CCK intravenously over a 15min infusion. Addition images: 20 minute dynamic during CCK administration. COMPARISON: Prior ultrasound 06/29/2023 reviewed FINDINGS: There is normal uptake and excretion of radiopharmaceutical by the liver and activity seen within the gallbladder lumen starting at 16 minutes post injection. In response to CCK infusion there is a normal ejection fraction of 66 percent demonstrated by the gal lbladder. IMPRESSION: 1. No evidence of obstruction of the cystic duct (no evidence of acute cholecystitis). 2. No evidence of gallbladder dysfunction.
[2023-07-22] MEDS: Sincalide 5 MCG VIAL 1 MCG IJ (10:44)
== END ==
PROVIDERS: PCP Student in an Organized Health Care Education/Training Program; Visit Provider Surgery
DX: R10.13 Epigastric pain (principal); R14.0 Abdominal distension (gaseous)
CPT/HCPCS: 78227; J2805

== ENCOUNTER 2023-07-24 03:57 | Outpatient (CLI) | payer MEDICARE, OTHER, SELFPAY ==
[2023-07-24 13:34] LABS: Anion Gap 12.4 mmol/L (3-11); BUN 20 mg/dL (7-18); CO2 20.6 mmol/L (21.0-32.0); CREATININE 1.1 mg/dL (0.55-1.02); Calcium 9.2 mg/dL (8.5-10.1); Chloride 99 mmol/L (98-107); Estimated GFR 52.73 (mL/min/1.73m2); Glucose 97 mg/dL (74-106); Potassium 4.4 mmol/L (3.5-5.1); Sodium 132 mmol/L (136-145)
== END 2023-07-24 03:58 | disposition home or self-care (01) ==
LOC: LBO 03:57
PROVIDERS: PCP Student in an Organized Health Care Education/Training Program; Visit Provider Nurse Practitioner Adult Health
DX: E87.1 Hypo-osmolality and hyponatremia (principal); E87.5 Hyperkalemia; F41.8 Other specified anxiety disorders; R63.5 Abnormal weight gain; I10 Essential (primary) hypertension
CPT/HCPCS: 80048

== ENCOUNTER → 2023-09-08 10:13 | Outpatient (BNVA) | payer MEDICARE, OTHER, SELFPAY | PROVIDERS: PCP Student in an Organized Health Care Education/Training Program; Referring Provider Student in an Organized Health Care Education/Training Program; Visit Provider Psychiatry & Neurology Neurology | DX: R51.9 Headache, unspecified (principal); M99.01 Segmental and somatic dysfunction of cervical region; M43.6 Torticollis | CPT/HCPCS: 64405 ==

== ENCOUNTER → 2023-09-17 13:34 | Outpatient (BNVA) | payer MEDICARE, OTHER, SELFPAY | PROVIDERS: PCP Student in an Organized Health Care Education/Training Program; Referring Provider Student in an Organized Health Care Education/Training Program; Visit Provider Physician Assistant Surgical | DX: J44.9 Chronic obstructive pulmonary disease, unspecified (principal); Z79.899 Other long term (current) drug therapy; F17.210 Nicotine dependence, cigarettes, uncomplicated; K21.9 Gastro-esophageal reflux disease without esophagitis; G47.33 Obstructive sleep apnea (adult) (pediatric) | CPT/HCPCS: 99214 ==

== ENCOUNTER → 2023-09-18 10:32 | Outpatient (BNVA) | payer MEDICARE, OTHER, SELFPAY | PROVIDERS: PCP Student in an Organized Health Care Education/Training Program; Referring Provider Student in an Organized Health Care Education/Training Program; Visit Provider Internal Medicine Cardiovascular Disease | DX: I44.7 Left bundle-branch block, unspecified (principal); I10 Essential (primary) hypertension; I73.9 Peripheral vascular disease, unspecified | CPT/HCPCS: 99213 ==

== ENCOUNTER → 2023-09-22 10:19 | Outpatient (BNVA) | payer MEDICARE, OTHER, SELFPAY | PROVIDERS: PCP Student in an Organized Health Care Education/Training Program; Referring Provider Student in an Organized Health Care Education/Training Program; Visit Provider Psychiatry & Neurology Neurology | DX: R51.9 Headache, unspecified (principal); M99.01 Segmental and somatic dysfunction of cervical region; M43.6 Torticollis | CPT/HCPCS: 64405 ==

== ENCOUNTER → 2023-10-06 15:14 | Outpatient (BNVA) | payer MEDICARE, OTHER, SELFPAY | PROVIDERS: PCP Student in an Organized Health Care Education/Training Program; Referring Provider Student in an Organized Health Care Education/Training Program; Visit Provider Psychiatry & Neurology Neurology | DX: M54.2 Cervicalgia (principal); M54.50 Low back pain, unspecified; M99.01 Segmental and somatic dysfunction of cervical region | CPT/HCPCS: 64405 ==

== ENCOUNTER → 2023-10-28 11:13 | Outpatient (BNVA) | payer MEDICARE, OTHER, SELFPAY | PROVIDERS: PCP Student in an Organized Health Care Education/Training Program; Referring Provider Student in an Organized Health Care Education/Training Program; Visit Provider Psychiatry & Neurology Neurology | DX: R51.9 Headache, unspecified (principal); M99.01 Segmental and somatic dysfunction of cervical region; M43.6 Torticollis | CPT/HCPCS: 64405 ==

== ENCOUNTER → 2024-02-01 04:06 | Outpatient (CLI) | payer MEDICARE, OTHER, SELFPAY ==
--- NOTE | 2024-02-01 10:11 | DI.CTLCSR_ITS ---
Exam(s) CT CHEST LUNG CANCER SCREEN EXAM: CT CHEST LUNG CANCER SCREEN CLINICAL HISTORY: Screening for lung cancer,current smoker, f17.210 TECHNIQUE: Imaging Protocol: Axial computed tomography images with coronal and sagittal reformatted images were created and reviewed. Low dose screening protocol. COMPARISON: CT CT CHEST LUNG CANCER SCREEN from 02/03/2023 FINDINGS: Tracheobronchial tree: No bronchiectasis or mucus plugging.. Mediastinum and Ashlie: No dominant adenopathy or fluid collection. Pulmonary parenchyma: No consolidation or dominant measurable mass. Moderate emphysematous changes. Fibrotic changes peripherally greater at the lung bases. Apical scarring. Lung Nodules: None. Pleura: No effusion. No pneumothorax. Heart: The heart is not dilated. Moderate coronary artery calcifications are seen. Aorta: Thoracic aorta non-dilated. Mild atherosclerotic changes. Upper abdomen: Unremarkable. Bones: Unremarkable for age. Soft Tissues: Unremarkable. IMPRESSION: No suspicious pulmonary nodules. Lung RADS Cat 1 - Negative: No nodules and definitely benign nodules Lung-RADS 1.0 CATEGORIES: Category 0 - Prior chest CT exam(s) being located for comparison. Category 1 - Annual screening in 12 months. No nodules or definitely benign nodules. Category 2 - Annual screening in 12 months. Benign appearance. Nodules with low likelihood of becomin g active cancer. Category 3 - 6-month follow-up. Probably benign. Short-term follow-up suggested. Nodules with low lik elihood of becoming active cancer. Category 4A - 3-month follow-up and CT/PET if >8 mm in size. Suspicious finding. Findings which requi re additional testing. Category 4B - Findings which require additional testing and tissue sampling. Category 4X - Category 3 or 4 nodules with additional features or imaging findings that increases the suspicion of malignancy. Modifier S- Potentially clinically significant findings (non lung cancer) RADIATION DOSE DELIVERED: Total DLP DATA REPOSITORY: All CT scans at this facility are submitted to the National Radiology Data Registry (NRDR) Dose Index Registry (DIR) with the [employer] ([employer]). RADIATION OPTIMIZATION: All CT scans at this facility use at least one of these dose optimization te chniques: automated exposure control; mA and/or kV adjustment per patient size (includes targeted exa ms where dose is matched to clinical indication); or iterative reconstruction.
== END ==
PROVIDERS: PCP Student in an Organized Health Care Education/Training Program; Visit Provider Physician Assistant Surgical
DX: F17.210 Nicotine dependence, cigarettes, uncomplicated (principal)
CPT/HCPCS: 71271

== ENCOUNTER → 2024-02-03 12:53 | Outpatient (BNVA) | payer MEDICARE, OTHER, SELFPAY | PROVIDERS: PCP Student in an Organized Health Care Education/Training Program; Referring Provider Student in an Organized Health Care Education/Training Program; Visit Provider Nurse Practitioner Adult Health | DX: G43.009 Migraine without aura, not intractable, without status migrainosus (principal); M43.6 Torticollis | CPT/HCPCS: 99215 ==

== ENCOUNTER → 2024-02-15 14:03 | Outpatient (CLI) | payer MEDICARE, OTHER, SELFPAY ==
--- NOTE | 2024-02-15 12:28 | DI.RAD_ITS ---
Exam(s) XR ANKLE LT COMPLETE EXAM: XR ANKLE LT COMPLETE CLINICAL HISTORY: M25.562,M25.362, M25.472, M25.572 lt knee pain, swelling pain s/p fall TECHNIQUE: 2D digital imaging was performed. Three views. COMPARISON: CR XR ANKLE LT COMPLETE from 10/19/2020 FINDINGS: BONES: No acute fracture is present. No bony destructive lesion is seen. JOINTS:The ankle mortise is normally aligned. SOFT TISSUE: Lateral soft tissue swelling. IMPRESSION: Lateral soft tissue swelling. No evidence of fracture DATA REPOSITORY: RADIATION DOSE DELIVERED:
--- NOTE | 2024-02-15 12:28 | DI.RAD_ITS ---
Exam(s) XR KNEE LT 3V AP,LAT,DESI EXAM: XR KNEE LT 3V AP,LAT,DESI CLINICAL HISTORY: M25.562,M25.362, M25.472, M25.572 pain, swelling. TECHNIQUE: 2D digital imaging was performed. Three views. COMPARISON: No exams were available for comparison FINDINGS: BONES: No acute fracture is present. No bony destructive lesion is seen. JOINTS: The knee is normally aligned. No joint effusion is seen. The joint spaces are maintained. No significant degenerative changes. SOFT TISSUE: Normal. IMPRESSION: Normal radiographs of the left knee. DATA REPOSITORY: RADIATION DOSE DELIVERED:
== END ==
PROVIDERS: PCP Student in an Organized Health Care Education/Training Program; Visit Provider Nurse Practitioner
DX: M25.562 Pain in left knee (principal); M25.362 Other instability, left knee; M25.472 Effusion, left ankle; M25.572 Pain in left ankle and joints of left foot; M79.89 Other specified soft tissue disorders; W19.XXXA Unspecified fall, initial encounter
CPT/HCPCS: 73562; 73610

== ENCOUNTER → 2024-03-08 07:54 | Outpatient (BNVA) | payer MEDICARE, OTHER, SELFPAY | PROVIDERS: PCP Student in an Organized Health Care Education/Training Program; Referring Provider Student in an Organized Health Care Education/Training Program; Visit Provider Podiatrist | DX: G57.92 Unspecified mononeuropathy of left lower limb (principal); S93.402D Sprain of unspecified ligament of left ankle, subsequent encounter; M25.571 Pain in right ankle and joints of right foot; M79.672 Pain in left foot; X58.XXXD Exposure to other specified factors, subsequent encounter | CPT/HCPCS: 29580; 99214; 29850 ==

== ENCOUNTER → 2024-03-15 05:26 | Outpatient (CLI) | payer MEDICARE, OTHER, SELFPAY ==
--- NOTE | 2024-03-15 09:00 | DI.RAD_ITS ---
Exam(s) XR FOOT LT COMPLETE XR ANKLE LT COMPLETE EXAM: XR ANKLE LT COMPLETE and XR foot LT complete CLINICAL HISTORY: Lateral ankle sprain,s93.402a TECHNIQUE: 2D digital imaging was performed of the left foot and ankle. Seven images were obtained. AP, lateral and oblique views were obtained. COMPARISON: CR XR FOOT LT COMPLETE from 10/19/2020 CR XR ANKLE LT COMPLETE from 10/19/2020 CR XR ANKLE LT COMPLETE from 02/15/2024 CR XR FOOT LT COMPLETE from 03/15/2024 FINDINGS: BONES: No acute fracture is present. No bony destructive lesion is seen. JOINTS:The ankle mortise is normally aligned. The joint spaces are well maintained. SOFT TISSUE: There is mild soft tissue swelling around the ankle laterally. IMPRESSION: Mild soft tissue swelling around the ankle laterally. DATA REPOSITORY: RADIATION DOSE DELIVERED:
--- NOTE | 2024-03-15 09:00 | DI.RAD_ITS ---
Exam(s) XR ANKLE RT COMPLETE XR FOOT RT COMPLETE EXAM: XR FOOT RT COMPLETE and XR ankle RT complete CLINICAL HISTORY: Comparison views,pain rt foot, m79.671. TECHNIQUE: 2D digital imaging was performed of the right ankle and foot. Seven images were obtained . AP, oblique and lateral views were obtained. COMPARISON: CR XR ANKLE RT COMPLETE from 06/19/2020 CR XR ANKLE RT COMPLETE from 03/15/2024 FINDINGS: BONES: No acute fracture is present. No bony destructive lesion is seen. JOINTS: No dislocation present. The joint spaces are well maintained. SOFT TISSUE: Normal. IMPRESSION: Unremarkable examination of the right ankle and right foot. DATA REPOSITORY: RADIATION DOSE DELIVERED:
== END ==
PROVIDERS: PCP Student in an Organized Health Care Education/Training Program; Visit Provider Podiatrist
DX: M79.672 Pain in left foot (principal); M25.571 Pain in right ankle and joints of right foot
CPT/HCPCS: 73610; 73630

== ENCOUNTER → 2024-03-22 08:41 | Outpatient (BNVA) | payer MEDICARE, OTHER, SELFPAY | PROVIDERS: PCP Student in an Organized Health Care Education/Training Program; Referring Provider Student in an Organized Health Care Education/Training Program; Visit Provider Podiatrist | DX: G57.92 Unspecified mononeuropathy of left lower limb; S93.402A Sprain of unspecified ligament of left ankle, initial encounter; M25.571 Pain in right ankle and joints of right foot; M79.672 Pain in left foot; X58.XXXA Exposure to other specified factors, initial encounter | CPT/HCPCS: 99214 ==

== ENCOUNTER → 2024-03-30 10:52 | Outpatient (BNVA) | payer MEDICARE, OTHER, SELFPAY | PROVIDERS: PCP Student in an Organized Health Care Education/Training Program; Referring Provider Student in an Organized Health Care Education/Training Program; Visit Provider Nurse Practitioner Adult Health | DX: G44.1 Vascular headache, not elsewhere classified (principal) | CPT/HCPCS: 64405 ==

== ENCOUNTER → 2024-04-14 09:06 | Outpatient (BNVA) | payer MEDICARE, OTHER, SELFPAY | PROVIDERS: PCP Student in an Organized Health Care Education/Training Program; Referring Provider Student in an Organized Health Care Education/Training Program; Visit Provider Podiatrist | DX: G57.92 Unspecified mononeuropathy of left lower limb (principal); S93.402A Sprain of unspecified ligament of left ankle, initial encounter; M25.571 Pain in right ankle and joints of right foot; M79.672 Pain in left foot | CPT/HCPCS: 99213 ==

== ENCOUNTER 2024-05-02 02:56 | Outpatient (CLI) | payer MEDICARE, SELFPAY ==
[2024-05-02 12:26] LABS: Anion Gap 8.2 mmol/L (3-11); BUN 23 mg/dL (7-18); CO2 28.8 mmol/L (21.0-32.0); CREATININE 1.3 mg/dL (0.55-1.02); Calcium 9.5 mg/dL (8.5-10.1); Chloride 100 mmol/L (98-107); Estimated GFR 42.88 (mL/min/1.73m2); Glucose 104 mg/dL (74-106); Potassium 4.6 mmol/L (3.5-5.1); Sodium 137 mmol/L (136-145); Vitamin D 25 Total 56.4 ng/mL (30-100)
== END 2024-05-02 02:57 | disposition home or self-care (01) ==
LOC: LBO 02:56
PROVIDERS: PCP Student in an Organized Health Care Education/Training Program; Visit Provider Student in an Organized Health Care Education/Training Program
DX: E87.8 Other disorders of electrolyte and fluid balance, not elsewhere classified (principal); K90.9 Intestinal malabsorption, unspecified; R79.89 Other specified abnormal findings of blood chemistry
CPT/HCPCS: 36415; 80048; 82306

== ENCOUNTER → 2024-05-24 10:53 | Outpatient (BNVA) | payer MEDICARE, OTHER, SELFPAY | PROVIDERS: PCP Nurse Practitioner; Referring Provider Nurse Practitioner; Visit Provider Podiatrist | DX: S93.402A Sprain of unspecified ligament of left ankle, initial encounter (principal); X58.XXXA Exposure to other specified factors, initial encounter; G57.92 Unspecified mononeuropathy of left lower limb; M25.571 Pain in right ankle and joints of right foot; M79.672 Pain in left foot | CPT/HCPCS: 99213 ==

== ENCOUNTER → 2024-06-14 01:02 | Outpatient (CLI) | payer MEDICARE, OTHER, SELFPAY ==
--- OUTSIDE RECORDS SUMMARY | 2024-06-14 01:46 | XMS_ITS | Encounter Summary ---
Author Organization [facility] Address [address] [place] [id number] Care Team Providers Care Last Turner Name Role Phone Unavailable Primary Care Provider Unavailabl e Encounter Details Date Type Department Care Team (Latest Contact Info) Description 07/07/2014 15:12 EDT - 07/07/2014 23:59 EDT Hospital Encounter [address] [address] Unknown, Provider, Discharge Disposition: Home or Self Care Social History Tobacco Use Types Packs/Day Years Used Date Smoking Tobacco: Never Assessed Sex and Gender Information Value Date Recorded Sex Assigned at Not on file Gender Identity Not on file Sexual Orientation Not on file documented as of this encounter Discharge Disposition Disposition Code Departure Means Destination Home or Self Correction documented in this encounter Plan of Treatment Not on file documented as of this encounter Visit Diagnoses Not on filedocumented in this encounter
--- OUTSIDE RECORDS SUMMARY | 2024-06-14 01:46 | XMS_ITS | Encounter Summary ---
Author Organization [facility] [place] [address] Care Team Providers Care Gamma Ray Operator Name Role Phone Veronica Meek DO Primary Care Provider +1- [phone] Encounter Details Date Type Department Care Team (Latest Contact Info) Description 07/03/2023 Travel Social History Tobacco Use Types Packs/Day Years Used Date Smoking Tobacco: Every Day Cigarettes 0.5 50 Smokeless Tobacco: Never Alcohol Use Standard Drinks/Week Comments Yes 1.7 (1 standard drink = 0.6 oz p ure alcohol) Sex and Gender Information Value Date Recorded Sex Assigned at Not on file Gender Identity Not on file Sexual Orientation Not on file documented as of this encounter Plan of Treatment Upcoming Encounters Date Type Department Care Team (Late st Contact Info) Description 06/29/2024 2:40 PM EDT Office Visit Dermatology at [facility] [address] [place] [address] Emmanuelle Yeboah MD [facility] [address] [facility] [place] [address] documented as of this encounter Visit Diagnoses Not on filedocumented in this encounter Care Teams Gamma Ray Operator Relationship Specialty Start Date End Date Veronica Meek DO [address] [place] [address] PCP - General Family Medicine 07/24/22 documented as of this encounter
--- OUTSIDE RECORDS SUMMARY | 2024-06-14 01:46 | XMS_ITS | Encounter Summary ---
Author Organization [place] [id number] Care Team Providers Care Plug Stitcher Name Role Phone Veronica Meek DO Primary Care Provider +1- [phone] Reason for Referral * Diagnostic Test (Routine) - Authorized Specialty Diagnoses / Procedures Referred By Contac t Referred To Contact Diagnoses Renal artery stenosis Procedures Duplex Study Renal Arteries, Bilat Jocelyn Bates MD [facility] [place] [address] [facility] [address] [place] [phone] Referral ID Status Reason Start Date Expiration Date Visits Requested Visits Authorized [id number] Authorized Specialty Service Requested 08/13/2023 08/12/2024 1 1 * Diagnostic Test (Routine) - Authorized Specialty Diagnoses / Procedures Referred By Contac t Referred To Contact Diagnoses Atherosclerosis of lower extremity with claudication Procedures BONITA, legs, multiple levels Jocelyn Bates MD [facility] [place] [address] [facility] [address] [place] [phone] Referral ID Status Reason Start Date Expiration Date Visits Requested Visits Authorized [id number] Authorized Specialty Service Requested 08/13/2023 08/12/2024 1 1 Encounter Details Date Type Department Care Team (Late st Contact Info) Description 08/13/2023 9:30 AM EDT Office [place] [address] Jocelyn Bates MD [facility] [place] [address] Atherosclerosis of lower extremity with claudication; Renal artery stenosis Social History Tobacco Use Types Packs/Day Years Used Date Smoking Tobacco: Every Day Cigarettes 0.5 50 Smokeless Tobacco: Never Comments:About 6 cigarettes a day Alcohol Use Standard Drinks/Week Comments Yes 1.7 (1 standard drink = 0.6 oz p ure alcohol) Sex and Gender Information Value Date Recorded Sex Assigned at Not on file Gender Identity Not on file Sexual Orientation Not on file documented as of this encounter Last Filed Vital Signs Vital Sign Reading Time Taken Comments Blood Pressure 151/119 08/13/2023 9:27 AM EDT Pulse 58 08/13/2023 9:27 AM EDT Temperature - - Respiratory Rate - - Oxygen Saturation 97% 08/13/2023 9:27 AM EDT Inhaled Oxygen Concentration - - Weight 64.4 kg (142 lb) 08/13/2023 9:27 AM EDT Height 162.6 cm (5' 4) 08/13/2023 9:27 AM EDT Body Mass Index 24.37 08/13/2023 9:27 AM EDT documented in this encounter Progress Notes * Jocelyn Bates MD - 08/13/2023 9:30 AM EDT Images from the original note were not included. OUTPATIENT VASCULAR SURGERY CONSULTATION Reason for Visit: PAD, renal artery stenosis History of Present Illness: Keri Broussard is a 72 y.o. female here for follow-up evaluation of her renal artery stenosis. She was last seen by Boris Thompson on 07/10/23. [facility]. More recently she had a CT scan performed as work-up for abdominal pain which identified a right renal artery stenosis. She reports she is had hypertension forthe past year. She is currently taking 2 agents with only moderate improvement in her blood pressure. She denies any history of severe hypertension or flash pulmonary edema. She is an active smoker, however is reduced to approximately 7 to 8 cigarettes/day. She is not currently interested in quitting. Her current antihypertensive medicines include atenolol 25 mg daily and losartan 50 mg once or twice a day depending on her blood pressures. She currently takes aspirin as well as Crestor. Atherosclerotic Risk Factors: (n) DM (y) HTN (n) CAD (n) CHF (n) Hyperlipidemia (n) CVA reports that she has been smoking cigarettes. She has a 25.00 pack-year smoking history. She has never used smokeless tobacco. Patient Active Problem List Diagnosis Code Chest tightness or pressure R07.89 Osteoporosis M81.0 Spinal stenosis of lumbar region with neurogenic claudication M48.062 RLS (restless legs syndrome) G25.81 Nicotine dependence F17.200 Depression F32.A Fibromyalgia M79.7 IBS (irritable bowel syndrome) K58.9 PVD (peripheral vascular disease) with claudication I73.9 Abnormal weight loss R63.4 Anxiety F41.9 Gastroesophageal reflux disease K21.9 Muscle pain M79.10 Non-cardiac chest pain R07.89 Pulmonary emphysema J43.9 Sacroiliac joint dysfunction of right side M53.3 Alcohol dependence F10.20 Current Outpatient Medications: ketoconazole (NIZORAL) 2 % Shampoo, Shampoo and let it sit for 5-10 minutes, then rinse. Recommend applying 2 to 3 times weekly., Disp: 120 mL, Rfl: 3 Ventolin HFA 90 mcg/actuation HFA Aerosol Inhaler, INHALE ONE TO TWO PUFFS BY MOUTH FOUR TIMES A DAY NEEDED FOR FOR SHORTNESS OF BREATH, Disp: , Rfl: Incruse Ellipta 62.5 mcg/actuation Disk with Device, Inhale 1 puff into the lungs daily., Disp: , Rfl: varenicline (CHANTIX) 0.5 mg (11)- 1 mg (42) Tablets, Dose Pack, TAKE PER PACKAGE DIRECTIONS, Disp:, Rfl: acetaminophen (Tylenol) 500 mg Tablet, As needed, Disp: , Rfl: ibuprofen (Advil) 200 mg Tablet, Q6H, Disp: , Rfl: rosuvastatin (Crestor) 10 mg Tablet, Take by mouth., Disp: , Rfl: senna-docusate (Pericolace) 8.6-50 mg Tablet, Take by mouth., Disp: , Rfl: melatonin 5 mg Tablet, Take by mouth., Disp: , Rfl: calcium carb/magnesium hydrox (MYLANTA ORAL), Take by mouth as needed. Liquid., Disp: , Rfl: DULoxetine DR (Cymbalta) 20 mg Capsule, Delayed Release(E.C.), Take 20 mg by mouth daily., Disp: , Rfl: UNABLE TO FIND, Med Name: Citrical OTC supplement, Disp: , Rfl: pantoprazole (PROTONIX) 40 mg tablet, Take 1 tablet by mouth daily., Disp: 90 tablet, Rfl: 3 aspirin 81 mg EC tablet, Take 1 tablet by mouth daily., Disp: 30 tablet, Rfl: 3 gabapentin (NEURONTIN) 600 mg tablet, Take 600 mg by mouth nightly., Disp: , Rfl: Calcium Carbonate-Vit D3-Min 600 mg calcium- 400 unit Tab, Take by mouth daily., Disp: , Rfl: Allergies Allergen Reactions Varenicline Tartrate Other reaction(s): Anxiety/headache/dopiness. Omeprazole Oxycodone Sulfa (Sulfonamide Antibiotics) Review of Systems: Constitutional (weight change, fever) - Denies Neuro (dizziness, seizures, numbness, tingling) - Denies Eyes (vision) - Denies Ears, nose, throat (hearing) - Denies Cardiovascular (CP) - Denies Respiratory (SOB) - Denies GI (abd pain, nausea, emesis, blood in stool) - Denies (hematuria, dysuria, frequency) - Denies Muscoloskeletal (extremity pain, weakness) - Denies Skin (ulcers, rashes) - Denies Functional Status/Social Hx: Lives at home, Retired, Drives Car, + Tobacco Use, Family Hx: Negative for Thrombosis, Bleeding Disorders Physical Exam: BP (!) 151/119 (BP Location (NBP): Right arm, Patient Position: Sitting) Pulse 58 Ht 162.6 cm (5' 4) Wt 64.4 kg (142 lb) SpO2 97% BMI 24.37 kg/m?? General - NAD, appears stated age Neuro - Alert and Oriented, Motor Sensory grossly intact Skin - No prominent markings or lesions Ear, Nose, Throat - No masses, No lesions Cardiac - RRR, no murmurs Lungs -coarse breath sounds Abd - Soft, NT, ND, No palpable pulsatile masses Musculoskeletal- full ROM upper and lower extremities Psych- alert oriented X3 Extremities - Warm, pink, no edema, brisk capillary refill Vascular Exam: R L Carotid 2/2 bruit (n) 2/2 bruit (n) Radial 2/2 2/2 Femoral 2/2 2/2 Popliteal 0/2 0/2 DP 0/2 0/2 PT 0/2 0/2 Labs: Recent Results (from the past 72 hour(s)) Duplex Study Renal Arteries, Bilat Result Value Ref Range VB Text Report Department: Vascular Surgery Lab Patient: [id number] (KERI BROUSSARD) CPT: 15811 Referring Physician: BORIS THOMPSON Phone: Indications: renal artery stenosis on CT Findings: Arcelia Renal Aorta PSV (cm/s): 71 EDV (cm/s): 13 RI: 0.81 Renal Artery Ostium, Right PSV (cm/s): 294 EDV (cm/s): 51 RAR: 4.1 RI: 0.83 Renal Artery Proximal, Right PSV (cm/s): 315 EDV (cm/s): 60 RAR: 4.4 RI: 0.81 Renal Artery Mid, Right PSV (cm/s): 131 EDV (cm/s): 43 RAR: 1.8 RI: 0.67 Renal Artery Distal, Right PSV (cm/s): 73 EDV (cm/s): 19 RAR: 1.0 RI: 0.73 Mid Pole Renal Parenchyma, Right PSV (cm/s): 27 EDV (cm/s): 9 RI: 0.68 Renal Hilum, Right AT (ms): 60 Kidney Length, Right Length (cm): 7.8 Renal Vein, Right Patent: Patent Renal Artery Ostium, Left PSV (cm/s): 134 EDV (cm/s): 28 RAR: 1.9 RI: 0.79 Renal Artery Proximal, Left PSV (cm/s): 146 EDV (cm/s): 33 RAR: 2.1 RI: 0.77 Renal Artery Mid, Left PSV (cm/s): 117 EDV (cm/s): 33 RAR: 1.6 RI: 0.72 Renal Artery Distal, Left PSV (cm/s): 90 EDV (cm/s): 24 RAR: 1.3 RI: 0.74 Mid Pole Renal Parenchyma, Left PSV (cm/s): 39 EDV (cm/s): 11 RI: 0.72 Renal Hilum, Left AT (ms): 30 Kidney Length, Left Length (cm): 10.3 Renal Vein, Left Patent: Patent Interpretation: Right: Patent main renal artery with elevated velocities consistent with >60% stenosis. Patent main renal vein. The kidney is approximately 2.0 cm smaller than the LEFT. Left: Patent main renal artery with no evidence of hemodynamically significant stenosis. Patent main renal vein. Comparison: No previous study in our vascular lab database for comparison. VB Text Report End of Report Studies: No data to display BONITA 07/10/23 07/10/2023 ABIFindings: Right Pressure (mm Hg) BONITA Waveform Brachial Artery 189 Dorsalis Pedis (Ankle) Artery 122 0.65 [place]-Biphasic Posterior Tibial (Ankle) Artery 123 0.65 Biphasic Left Pressure (mm Hg) BONITA Waveform Brachial Artery 180 Dorsalis Pedis (Ankle) Artery 161 0.85 Triphasic Posterior Tibial (Ankle) Artery 162 0.86 Triphasic Interpretation: RIGHT: Moderate lower extremity arterial occlusive disease. No significant change compared to previous exam 07/24/2022. LEFT: Mild lower extremity arterial occlusive disease. No significant change compared to previous exam 07/24/2022. NOTE: Hypertension is present based on Doppler derived systolic brachial blood pressure. Previous ABIs with change from previous value: Date RIGHT DP RIGHT PT RT GR TOE RT Sec TOE 0.59 0.62 ---- ---- 0.54(-.05) 0.59(-.03) ---- ---- 0.56(+.02) 0.62(+.03) ---- ---- Current 0.65(+.09) 0.65(+.03) ---- ---- Date LEFT DP LEFT PT LT GR TOE LT Sec TOE 0.85 0.87 ---- ---- 0.89(+.04) 0.91(+.04) ---- ---- 0.94(+.05) 0.89(-.02) ---- ---- Current 0.85(-.09) 0.86(-.03) ---- --- CTA abdomen pelvis 06/19/23, images reviewed. High grade stenosis of the R renal artery. Stenosis of the L RUPAL. Bilateral DIGITAL AD TRAFFICKER stenoses. R SFA occluded at the origin. Assessment and Plan: 72 y.o. female with right renal artery stenosis and hypertension. Given she isonly currently taking 2 agents I do not recommend stenting at this time. In addition, duplex today demonstrates a smaller size kidney and an elevated resistive index suggestive that her renal function would not improve with stenting. Recommend titration of her antihypertensives by her primary care physician to control her hypertension. She will follow-up with us in 1 year with repeat renal arteryduplex as well as ABIs. Smoking cessation was discussed. documented in this encounter Plan of Treatment Upcoming Encounters Date Type Department Care Team (Late st Contact Info) Description 06/29/2024 2:40 PM EDT Office Visit Dermatology at [facility] [address] [place] [address] Emmanuelle Yeboah MD [facility] [address] [place] [address] documented as of this encounter Visit Diagnoses Diagnosis Atherosclerosis of lower extremity with claudication Renal artery stenosis Atherosclerosis of renal artery documented in this encounter Care Teams Plug Stitcher Relationship Specialty Start Date End Date Veronica Meek DO [address] [place] [address] PCP - General Family Medicine 07/24/22 documented as of this encounter
--- OUTSIDE RECORDS SUMMARY | 2024-06-14 01:46 | XMS_ITS | Encounter Summary ---
[place] [address] Care Team Providers Care Utility Gelatin Maker Name Role Phone Veronica Meek DO Primary Care Provider [phone]- [phone] Reason for Referral * Diagnostic Test (Routine) - Closed Specialty Diagnoses / Procedures Referred By Contac t Referred To Contact Diagnoses PVD (peripheral vascular disease) with claudication Procedures BONITA, legs, multiple levels Jesus Kam APRN [facility] [place] [address] [facility] [address] [address] Referral ID Status Reason Start Date Expiration Date V isits Requested Visits Authorized [id number] Closed Specialty Service Requested 07/24/2022 07/24/2023 1 1 Encounter Details Date Type Department Care Team (Late st Contact Info) Description 07/24/2022 9:30 AM EDT Office Visit [place] [address] Jesus Kam APRN [facility] [place] [address] PVD (peripheral vascular disease) with claudication Social History Tobacco Use Types Packs/Day Years [...] Sign Reading Time Taken Comments Blood Pressure 184/74 07/24/2022 9:43 AM EDT Pulse 63 07/24/2022 9:43 AM EDT Temperature - - Respiratory Rate - - Oxygen Saturation - - Inhaled Oxygen Concentration - - Weight 56.7 kg (125 lb) 07/24/2022 9:43 AM EDT r eported Height 161.9 cm (5' 3.75) 07/24/2022 9:43 AM ED T reported Body Mass Index 21.62 07/24/2022 9:43 AM EDT documented in this encounter Progress Notes * Jesus Kam, MIXING OPERATOR - 07/24/2022 9:30 AM EDT Vascular Follow-Up Reason for Visit: Keri Broussard is a 71 y.o. female presenting for follow-up PAD. HPI: Keri Broussard is a 71 y.o. female with a PMH of ACS, HTN, carotid artery occlusion, emphysema and PAD with claudication reports that she has persistent BLE pain. Continues with waling Reports right LE discomfort at 50 minute of waling No change. Denies chest pain,TIA's C/o mild SOB COPD. Patient reports that she is currently smoking 6-7 cigarettes per day and is actively trying to cut back. She has started a daily ASA and statin. Review of systems: Negative except as noted in HPI. Prior Vascular Hx: None Atherosclerotic RF: DM (N) HTN (Y) CAD (Y) CHF (N) HLD (N) CVA (N) Tobacco (Y) - Current 6-7 cigarette per day smoker with >50 pack-year hx. Problem List: Patient Active Problem List Diagnosis Code ??? Chest tightness or pressure R07.89 ??? Osteoporosis M81.0 ??? Spinal stenosis M48.00 ??? RLS (restless legs syndrome) G25.81 ??? Nicotine dependence F17.200 ??? Depression F32.A ??? Fibromyalgia M79.7 ??? IBS (irritable bowel syndrome) K58.9 ??? Carotid bruit R09.89 ??? PVD (peripheral vascular disease) with claudication I73.9 Medications: Current Outpatient Medications on File Prior to Visit Medication Sig Dispense Refill ??? acetaminophen (Tylenol) 500 mg Tablet As needed ??? ibuprofen (Advil) 200 mg Tablet Q6H ??? rosuvastatin (Crestor) 10 mg Tablet Take by mouth. ??? senna-docusate (Pericolace) 8.6-50 mg Tablet Take by mouth. ??? melatonin 5 mg Tablet Take by mouth. ??? calcium carb/magnesium hydrox (MYLANTA ORAL) Take by mouth as needed. Liquid. ??? DULoxetine DR (Cymbalta) 20 mg Capsule, Delayed Release(E.C.) Take 20 mg by mouth daily. ??? UNABLE TO FIND Med Name: Citrical OTC supplement ??? pantoprazole (PROTONIX) 40 mg tablet Take 1 tablet by mouth daily. 90 tablet 3 ??? aspirin 81 mg EC tablet Take 1 tablet by mouth daily. 30 tablet 3 ??? gabapentin (NEURONTIN) 600 mg tablet Take 600 mg by mouth nightly. ??? Calcium Carbonate-Vit D3-Min 600 mg calcium- 400 unit Tab Take by mouth daily. No current facility-administered medications on file prior to visit. Physical Exam: GEN: Alert and appears stated age. Cooperative. In NAD. HEENT: Normocephalic and atraumatic. CV: RRR. S1/S2 present. Pulm: Clear to auscultation bilaterally. Abd: No palpable aortic pulse or abdominal mass. Soft, non-distended, non-tender to palpation. Skin: Color, texture, turgor normal. No rashes or lesions. Neuro: No gross sensory or motor abnormality. Extremities: Bilateral UE and LE warm and pink. No edema. No wounds. Vascular Exam: R L Carotid Bruit No No Radial 2/2 2/2 Femoral 2/2 2/2 Popliteal 0/2 2/2 DP 1/2 2/2 PT 0/2 0/2 BONITA : Right ?Pressure (mm Hg) ?? BONITA ??Waveform ? Brachial Artery ?197 ? Dorsalis Pedis (Ankle) Artery ?110 ? 0.56 ??Biphasic ? Posterior Tibial (Ankle) Artery ??123 ? 0.62 ??[place]-Biphasic ? Left ? Pressure (mm Hg) ?? BONITA ??Waveform ?? Brachial Artery ?191 ? Dorsalis Pedis (Ankle) Artery ?185 ? 0.94 ??Triphasic ?? Posterior Tibial (Ankle) Artery ??175 ? 0.89 ??Triphasic ? Interpretation: ?? RIGHT: Moderate lower extremity arterial occlusive disease. No significant change compared to previous exam. ?? LEFT: Mild lower extremity arterial occlusive disease. No significant change compared to previous exam. ? Assessment/Plan: Keri Broussard is a 71 y.o. female with BLE PAD. Patient has some sytmpoms consistent with claudication, however, it is likely her BLE symptoms are multifactorial. ABIs today are stable No CLI. Continue statin and ASA. . Encourage patient to start daily walking exercise. Strongly recommend patient quit smoking, she is actively trying to cut back. Follow-up in 1 year with ABIs.Instructed to call the clinic with any concerns prior to next appointment. documented in this encounter Plan of Treatment Upcoming Encounters Date Type Department Care Team (Late st Contact Info) Description 06/29/2024 2:40 PM EDT Office Visit Dermatology at [facility] [address] [place] [address] Emmanuelle Yeboah MD [facility] [place] [address] documented as of this encounter Results * BONITA, legs, multiple levels (07/10/2023 2:22 PM EDT) [facility] Text Report Department: Vascular Surgery Lab Patient: [id number] (KERI BROUSSARD) CPT: 40909 Referring Physician: JESUS KAM APRN ?? Indications: Claudication ? Perfusion Diabetes mellitus: No Findings: Right ?Pressure (mm Hg) ?? BONITA ??Waveform ? Brachial Artery ?189 ? Dorsalis Pedis (Ankle) Artery ?122 ? 0.65 ??[place]-Biphasic ?? Posterior Tibial (Ankle) Artery ??123 ? 0.65 ??Biphasic ? Left ? Pressure (mm Hg) ?? BONITA ??Waveform ?? Brachial Artery ?180 ? Dorsalis Pedis (Ankle) Artery ?161 ? 0.85 ??Triphasic ?? Posterior Tibial (Ankle) Artery ??162 ? 0.86 ??Triphasic ?? Interpretation: RIGHT: Moderate lower extremity arterial occlusive disease. No significant change compared to previous exam 07/24/2022. LEFT: Mild lower extremity arterial occlusive disease. No significant change compared to previous exam 07/24/2022. NOTE: Hypertension is present based on Doppler derived systolic brachial blood pressure. Previous ABIs with change from previous value: Date ?RIGHT DP ?? RIGHT PT ?? RT GR TOE ??RT Sec TOE ??0.59 ? 0.62 ? ---- ? ---- ??0.54(-.05) 0.59(-.03) ---- ? ---- ??0.56(+.02) 0.62(+.03) ---- ? ---- Current ? 0.65(+.09) 0.65(+.03) ---- ? ---- Date ?LEFT DP ?LEFT PT ?LT GR TOE LT Sec TOE ??0.85 ? 0.87 ? ---- ? ---- ??0.89(+.04) 0.91(+.04) ---- ? ---- ??0.94(+.05) 0.89(-.02) ---- ? ---- Current ? 0.85(-.09) 0.86(-.03) ---- ? ---- Electronically Signed by: JAMES MOONEY on 2023-07-10 03:05:28 PM [facility] VB Text Report End of Report [facility] 07/10/2023 2:22 PM EDT Jesus Kam MIXING OPERATOR VASCULAR ORDERABLE S [facility] documented in this encounter Visit Diagnoses Diagnosis PVD (peripheral vascular disease) with claudication Peripheral vascular disease, unspecified documented in this encounter Care Teams Utility Gelatin Maker Relationship Specialty Start Date End Date Veronica Meek DO [address] [facility] [place] [address] PCP - General Family Medicine 07/24/22 documented as of this encounter
--- OUTSIDE RECORDS SUMMARY | 2024-06-14 01:46 | XMS_ITS | Encounter Summary ---
[place] [address] Care Team Providers Care Galvanometer Assembler Name Role Phone Ayah Albrecht MD Primary Care Provider [phone] Encounter Details Date Type Department Care Team (Late st Contact Info) Description 06/25/2021 Orders Only [place] [address] Shireen Fulton PA [facility] [place] [place] [address] Social History Tobacco Use Types Packs/Day Years Used Date Smoking Tobacco: Every Day Cigarettes 0.5 50 Smokeless Tobacco: Never Alcohol Use Standard Drinks/Week Comments Yes 1.7 (1 standard drink = 0.6 oz p ure alcohol) Sex and Gender Information Value Date Recorded Sex Assigned at Not on file Gender Identity Not on file Sexual Orientation Not on file documented as of this encounter Progress Notes * Shireen Fulton PA - 06/25/2021 8:44 AM EDT Contacted patient to confirm she is off trazodone. Rx for Pletal sent to pharmacy. Patient will follow-up in clinic in 1 month with ABIs. Instructed to call the clinic with any concerns prior to nextappointment. RUDDY Verdugo documented in this encounter Plan of Treatment Upcoming Encounters Date Type Department Care Team (Late st Contact Info) Description 06/29/2024 2:40 PM EDT Office Visit [facility]at[facility] at [facility] [address] [place] [address] Emmanuelle Yeboah MD [facility] [place] [address] documented as of this encounter Visit Diagnoses Not on filedocumented in this encounter Care Teams Galvanometer Assembler Relationship Specialty Start Date End Date Ayah Albrecht MD [address] [place] [address] PCP - General 05/04/14 07/23/22 documented as of this encounter
--- OUTSIDE RECORDS SUMMARY | 2024-06-14 01:46 | XMS_ITS | Encounter Summary ---
Author Organization [facility] Address [address] [place] [address] Care Team Providers Care Log Grader Name Role Phone Unavailable Primary Care Provider Unavailabl e Encounter Details Date Type Department Care Team (Late st Contact Info) Description 10/07/2001 Results Only [facility] conversion [address] [place] [address] Veronica Diaz, HELGA Social History Tobacco Use Types Packs/Day Years Used Date Smoking Tobacco: Never Assessed Sex and Gender Information Value Date Recorded Sex Assigned at Not on file Gender Identity Not on file Sexual Orientation Not on file documented as of this encounter Plan of Treatment Not on file documented as of this encounter Procedures Procedure Name Priority Date/Time Associated Diagnosis Comments CYTOPATHOLOGY Routine 10/07/2001 0:00 EST documented in this encounter Results * CYTOPATHOLOGY (10/07/2001 0:00 EST) Pathology Report: CYTOPATHOLOGY REPORT Reports generated via electronic interface contain original data; however they are lacking the format of the original report. Caution should be taken when reading/interpreti ng unformatted reports. Name: ? KERI BROUSSARD ? Accession #: ? [id number] : ? 1950 (Age: 51) ??F ?Collect Date: ? 10/07/2001 Location: ? [facility] ? Receive Date: ? 10/11/2001 Provider: ?VERONICA DIAZ NP Copy to: ? Specimen/Source: ?ThinPrep Pap Test, Cervix/Endocervix Last Menstrual Period: ? Hormonal/Contracep tive Status: ? Hormone Replacement Therapy ? SPECIMEN ADEQUACY ? Satisfactory for evaluation. GENERAL CATEGORIZATION ? Within Normal Limits ? Document reviewed and electronically signed by: ? LIVAN Manley(ASCP) ? Report Date: ??10/13/2001 15:45 End of Report CHAITANYA STANTON 10/07/2001 10/11/2001 Veronica Diaz NP PATHOLOGY ORDERABLES [facility] [address] [place] [address] documented in this encounter Visit Diagnoses Not on filedocumented in this encounter
--- OUTSIDE RECORDS SUMMARY | 2024-06-14 01:46 | XMS_ITS | Encounter Summary ---
[place] [address] Care Team Providers Care Small Stock Facer Name Role Phone Ayah Albrecht MD Primary Care Provider Encounter Details Date Type Department Care Team (Late st Contact Info) Description 06/24/2021 Telephone [place] [address] Veronica Maldonado RN Social History Tobacco Use Types Packs/Day Years Used Date Smoking Tobacco: Every Day Cigarettes 0.5 50 Smokeless Tobacco: Never Alcohol Use Standard Drinks/Week Comments Yes 1.7 (1 standard drink = 0.6 oz p ure alcohol) Sex and Gender Information Value Date Recorded Sex Assigned at Not on file Gender Identity Not on file Sexual Orientation Not on file documented as of this encounter Miscellaneous Notes * Telephone Encounter - Veronica Maldonado RN - 06/24/2021 3:38 PM EDT This casualty underwriter fielded phone call regarding medications. States she saw RUDDY Nvees, who wantedto start her on something for arterial disease but wanted to wait as the patient was on Trazadone. Patient calling to state she is no longer on trazadone and is taking melatonin instead. 05/14/21 3V note indicates a trial of Pletal. This casualty underwriter will send electronic message to Janay Fulton for clarification and follow up. Patient agrees with this plan. documented in this encounter Plan of Treatment Upcoming Encounters Date Type Department Care Team (Late st Contact Info) Description 06/29/2024 2:40 PM EDT Office Visit Dermatology at [address] [place] [address] Emmanuelle Yeboah MD [facility] [address] [place] [address] documented as of this encounter Visit Diagnoses Not on filedocumented in this encounter Care Teams Small Stock Facer Relationship Specialty Start Date End Date Ayah Albrecht MD [address] [facility] [place] [address] PCP - General 05/04/14 07/23/22 documented as of this encounter
--- OUTSIDE RECORDS SUMMARY | 2024-06-14 01:46 | XMS_ITS | Encounter Summary ---
Author Organization [facility] [place] [address] Care Team Providers Care Director Voice Name Role Phone Ayah Albrecht MD Primary Care Provider [phone] Encounter Details Date Type Department Care Team (Late st Contact Info) Description 07/23/2021 10:00 AM EDT Tech [place] [address] Justine Delgado [place] PVD (peripheral vascular disease) with claudication Social [...] 2:40 PM EDT Office Visit Dermatology at [facility] [address] [place] [address] Emmanuelle Yeboah MD [facility] [place] [address] documented as of this encounter Procedures Procedure Name Priority Date/Time Associated Diagnosis Comments BONITA, LEGS, MULTIPLE LEVELS Routine 07/23/2021 9:51 AM EDT PVD (peripheral vascular disease) with claudication documented in this encounter Results * BONITA, legs, multiple levels (07/23/2021 9:51 AM EDT) VB Text Report Department: Vascular Surgery Lab Patient: [id number] (KERI BROUSSARD) CPT: 57245 ICD10: I77.1;I73.9 Referring Physician: BOAZ BAUTISTA ?? Indications: ??Claudication, known PAD. ??? change in ABIs. Diabetes mellitus: No ICD10 Diagnosis Code: I73.9 Findings: Right ?Pressure (mm Hg) ?? BONITA ??Waveform ? Brachial Artery ?161 ? Dorsalis Pedis (Ankle) Artery ?88 ?0.54 ??Monophasic ? Posterior Tibial (Ankle) Artery ??96 ?0.59 ??[place]-Biphasic ?? Left ? Pressure (mm Hg) ?? BONITA ??Waveform ?? Brachial Artery ?164 ? Dorsalis Pedis (Ankle) Artery ?146 ? 0.89 ??Triphasic ?? Posterior Tibial (Ankle) Artery ??150 ? 0.91 ??Triphasic ?? Interpretation: RIGHT: Moderate lower extremity arterial occlusive disease. No significant change from previous exam. LEFT: Mild lower extremity arterial occlusive disease. No significant change from previous exam. Previous ABIs with change from previous value: Date ?RIGHT DP ?? RIGHT PT ?? RT GR TOE ??RT Sec TOE ??0.59 ? 0.62 ? ---- ? ---- Current ? 0.54(-.05) 0.59(-.03) ---- ? ---- Date ?LEFT DP ?LEFT PT ?LT GR TOE LT Sec TOE ??0.85 ? 0.87 ? ---- ? ---- Current ? 0.89(+.04) 0.91(+.04) ---- ? ---- Electronically Signed by: CHAYA LUNDBERG on 2021-07-23 11:06:11 AM [facility] VB Text Report End of Report [facility] 07/23/2021 9:51 AM EDT Boaz Bautista MD VASCULAR ORDERABLES Performing Organization Address City/State/[facility] Co de Phone Number [facility] documented in this encounter Visit Diagnoses Diagnosis PVD (peripheral vascular disease) with claudication Peripheral vascular disease, unspecified documented in this encounter Care Teams Director Voice Relationship Specialty Start Date End Date Ayah Albrecht MD [address] [place] [address] PCP - General 05/04/14 07/23/22 documented as of this encounter
--- OUTSIDE RECORDS SUMMARY | 2024-06-14 01:46 | XMS_ITS | Encounter Summary ---
Author Organization [facility] [place] [address] Care Team Providers Care Surveillance System Monitor Name Role Phone OscarVeronica ventura Myles CHRISTIANSEN Primary Care Provider [phone] Encounter Details Date Type Department Care Team (Late st Contact Info) Description 07/24/2022 9:00 AM EDT Tech Visit [place] [address] Mg Jc PVD (peripheral vascular disease) with claudication Social [...] 2:40 PM EDT Office Visit Dermatology at [facility] [address] [place] [address] Emmanuelle Yeboah MD [facility] [address] [place] [address] documented as of this encounter Procedures Procedure Name Priority Date/Time Associated Diagnosis Comments BONITA, LEGS, MULTIPLE LEVELS Routine 07/24/2022 8:58 AM EDT PVD (peripheral vascular disease) with claudication documented in this encounter Results * BONITA, legs, multiple levels (07/24/2022 8:58 AM EDT) VB Text Report Department: Vascular Surgery Lab Patient: [id number] (KERI BROUSSARD) CPT: 46934 Referring Physician: SHARMIN TREJO ?? Indications: hx of BL LE claudication, ? peripheral perfusion Diabetes mellitus: No Findings: Right ?Pressure (mm Hg) ?? BONITA ??Waveform ? Brachial Artery ?197 ? Dorsalis Pedis (Ankle) Artery ?110 ? 0.56 ??Biphasic ? Posterior Tibial (Ankle) Artery ??123 ? 0.62 ??[place]-Biphasic ?? Left ? Pressure (mm Hg) ?? BONITA ??Waveform ?? Brachial Artery ?191 ? Dorsalis Pedis (Ankle) Artery ?185 ? 0.94 ??Triphasic ?? Posterior Tibial (Ankle) Artery ??175 ? 0.89 ??Triphasic ?? Interpretation: RIGHT: Moderate lower extremity arterial occlusive disease. No significant change compared to previous exam. LEFT: Mild lower extremity arterial occlusive disease. No significant change compared to previous exam. Previous ABIs with change from previous value: Date ?RIGHT DP ?? RIGHT PT ?? RT GR TOE ??RT Sec TOE ??0.59 ? 0.62 ? ---- ? ---- ??0.54(-.05) 0.59(-.03) ---- ? ---- Current ? 0.56(+.02) 0.62(+.03) ---- ? ---- Date ?LEFT DP ?LEFT PT ?LT GR TOE LT Sec TOE ??0.85 ? 0.87 ? ---- ? ---- ??0.89(+.04) 0.91(+.04) ---- ? ---- Current ? 0.94(+.05) 0.89(-.02) ---- ? ---- Electronically Signed by: JOE SERRA on 2022-07-26 01:29:32 PM [facility] VB Text Report End of Report [facility] 07/24/2022 8:58 AM EDT Sharmin Trejo MD VASCULAR ORDERABLES Performing Organization Address City/State/[facility] Co de Phone Number V[facility]CU[facility] documented in this encounter Visit Diagnoses Diagnosis PVD (peripheral vascular disease) with claudication Peripheral vascular disease, unspecified documented in this encounter Care Teams Surveillance System Monitor Relationship Specialty Start Date End Date Veronica Meek DO [address] [place] [address] PCP - General Family Medicine 07/24/22 documented as of this encounter
--- OUTSIDE RECORDS SUMMARY | 2024-06-14 01:46 | XMS_ITS | Encounter Summary ---
Author Organization [facility] Address [address] [place] [address] Care Team Providers Care Histology Tech Name Role Phone Unavailable Primary Care Provider Unavailabl e Encounter Details Date Type Department Care Team (Late st Contact Info) Description 09/30/2000 Results Only [facility] conversion [address] [place] [address] Veronica Diaz, HELGA Social History Tobacco Use [...] Priority Date/Time Associated Diagnosis Comments CYTOPATHOLOGY Routine 09/30/2000 0:00 EST documented in this encounter Results * CYTOPATHOLOGY (09/30/2000 0:00 EST) Pathology Report: CYTOPATHOLOGY REPORT Reports generated via electronic interface contain original data; however they are lacking the format of the original report. Caution should be taken when reading/interpreti ng unformatted reports. Name: ? KERI BROUSSARD ? Accession #: ? [id number] : ? 1950 (Age: 50) ??F ?Collect Date: ? 09/30/2000 Location: ? [facility] ? Receive Date: ? 10/06/2000 Provider: ?VERONICA DIAZ EMU FARM WORKER Copy to: ? Specimen/Source: ?ThinPrep Pap Test, Vagina Last Menstrual Period: ? Hormonal/Contracep tive Status: ? Yes: ERT Treatment History: ? Hysterectomy: 1990 ? SPECIMEN ADEQUACY ? Satisfactory for evaluation. GENERAL CATEGORIZATION ? Within Normal Limits ? Document reviewed and electronically signed by: ? LIVAN Christiansen(ASCP)(IAC) ? Report Date: ??10/12/2000 14:14 End of Report CHAITANYA STANTON 09/30/2000 10/06/2000 Veronica Diaz NP PATHOLOGY ORDERABLES [facility] [address] [place] [address] documented in this encounter Visit Diagnoses Not on filedocumented in this encounter
--- OUTSIDE RECORDS SUMMARY | 2024-06-14 01:46 | XMS_ITS | Encounter Summary ---
[place] [address] Care Team Providers Care Speeder Operator Name Role Phone OscarVeronica ventura Primary Care Provider [phone]- [phone] Encounter Details Date Type Department Care Team (Late st Contact Info) Description 08/14/2023 Telephone [place] [id number] Alpa Ramirez RN Social History Tobacco Use Types Packs/Day [...] encounter Miscellaneous Notes * Telephone Encounter - Alpa Ramirez RN - 08/14/2023 9:56 AM EDT Tried to return call to patient. Patient had called and left a message stating she had follow up questions regarding the duplex she had done yesterday. Left message asking patient to call back to further discuss. documented in this encounter Plan of Treatment Upcoming Encounters Date Type Department Care Team (Late st Contact Info) Description 06/29/2024 2:40 PM EDT Office Visit Dermatology at [facility] [address] [place] [phone] Emmanuelle Yeboah MD [facility] [address] [place] [address] documented as of this encounter Visit Diagnoses Not on filedocumented in this encounter Care Teams Speeder Operator Relationship Specialty Start Date End Date Veronica Meek DO [address] [place] [address] PCP - General Family Medicine 07/24/22 documented as of this encounter
--- OUTSIDE RECORDS SUMMARY | 2024-06-14 01:46 | XMS_ITS | Encounter Summary ---
[place] [address] Care Team Providers Care Adobe Architect Name Role Phone Ayah Albrecht MD Primary Care Provider [phone] Reason for Referral * Diagnostic Test (Routine) - Closed Specialty Diagnoses / Procedures Referred By Contac t Referred To Contact Diagnoses PVD (peripheral vascular disease) with claudication Procedures BONITA, legs, multiple levels Shireen Fulton PA [facility] [place] [address] [facility] [address] [place] [phone] Referral ID Status Reason Start Date Expiration Date V isits Requested Visits Authorized [id number] Closed Specialty Service Requested 04/24/2021 04/24/2022 1 1 Reason for Visit * Consultation (Routine) - Closed Specialty Diagnoses / Procedures Referred By Contac t Referred To Contact Vascular Surgery Diagnoses Peripheral vascular disease, unspecified Ayah Albrecht MD [address] [place] [address] [facility] [address] [place] [phone] Referral ID Status Reason Start Date Expiration Date V isits Requested Visits Authorized [id number] Closed Consult, Test & Treat Connection Center PCP Updated and/or Approved 04/15/2021 04/15/2022 6 6 Encounter Details Date Type Department Care Team (Late st Contact Info) Description 04/24/2021 11:30 AM EDT Office Visit [place] [address] [facility] [place] [address] PVD (peripheral vascular disease) with claudication Social [...] Sign Reading Time Taken Comments Blood Pressure 137/64 04/24/2021 11:26 AM EDT Pulse 71 04/24/2021 11:26 AM EDT Temperature - - Respiratory Rate - - Oxygen Saturation - - Inhaled Oxygen Concentration - - Weight 53.5 kg (118 lb) 04/24/2021 11:26 AM EDT Reported Height 162.6 cm (5' 4) 04/24/2021 11:26 AM EDT Reported Body Mass Index 20.25 04/24/2021 11:26 AM EDT documented in this encounter Progress Notes * Shireen Fulton PA - 04/24/2021 11:30 AM EDT Vascular Surgery Consultation ?? Reason for Visit: Evaluation for PAD ?? History of Present Illness: Keri Broussard is a 70 y.o. female with a PMH of ACS, HTN, carotid artery occlusion, and emphysema presenting for evaluation of PAD. Patient complains of BLE claudication symptoms that are significantly worse in her RLE and have persisted for many years. Patient reports that her symptoms in her RLE have become even more severe over the last year. She reports that she can ambulate approximately 0.25 miles prior to onset of symptoms. Denies BLE rest pain, edema, andtissue loss. Patient reports she was recently evaluated in the ED for chest pain thought to be related to her CAD. She is currently undergoing work-up including an echo and stress test. She admits tochronic intermittent dyspnea related to her emphysema, but denies any new or worsening symptoms. Patient reports that she has cut down to smoking 0.5 PPD and has set a date to quit after her cardiac testing is complete. Prior Vascular Hx: None Atherosclerotic Risk Factors: (N) DM (Y) HTN (N) Hyperlipidemia (Y) Tobacco - Current 0.5 PPD smoker with >50 pack-year hx. (N) CVA ?? Cardiovascular History: (N) Previous MT (Y) Angina (N) CHF (N) Arrythmia (Y) PAD Problem List: Patient Active Problem List Diagnosis ??? Chest tightness or pressure ??? Osteoporosis ??? Spinal stenosis ??? RLS (restless legs syndrome) ??? Nicotine dependence ??? Depression ??? Fibromyalgia ??? IBS (irritable bowel syndrome) ??? Carotid bruit Review of Systems: Constitutional: Denies any fevers, chills, night sweats. HEENT: Denies headache, vision changes, hearing loss. CV: Intermittent chest pain. Denies palpitations. Respiratory: Chronic intermittent dyspnea. Denies cough. GI: Denies abdominal pain, nausea and vomiting. : Denies hematuria, dysuria, and urinary frequency. MS: BLE claudication. Denies extremity weakness. Skin: Denies any color changes, rashes or lesions. Neuro: Denies dizziness, numbness and paresthesias. Social Hx: Patient is a current 0.5 PPD smoker with >50 pack-year hx. Patient reports hx of ETOH abuse whenyounger, presently sober. Denies hx drug abuse. Currently resides at home with her . Family Hx: Negative for clotting and bleeding disorders. Medications: Current Outpatient Medications on File Prior to Visit Medication Sig Dispense Refill ??? DULoxetine DR (Cymbalta) 30 mg Capsule, Delayed Release(E.C.) Take 30 mg by mouth daily. ??? UNABLE TO FIND Med Name: Citrical OTC supplement ??? pantoprazole (PROTONIX) 40 mg tablet Take 1 tablet by mouth daily. (Patient not taking: Reported on 10/11/2020) 90 tablet 3 ??? aspirin 81 mg EC tablet Take 1 tablet by mouth daily. (Patient not taking: Reported on 10/11/2020) 30 tablet 3 ??? gabapentin (NEURONTIN) 600 mg tablet ??? traZODone (DESYREL) 100 mg tablet nightly. ??? Calcium Carbonate-Vit D3-Min 600 mg calcium- 400 unit Tab Take by mouth. No current facility-administered medications on file prior to visit. Allergies: Allergies Allergen Reactions ??? Omeprazole ??? Oxycodone ??? Sulfa (Sulfonamide Antibiotics) Physical Exam: GEN: Alert and appears stated [...] Femoral 2/2 2/2 Popliteal 0/2 2/2 DP 0/2 2/2 PT 0/2 0/2 Labs: No results found for this or any previous visit (from the past 24 hour(s)). Studies: BONITA 04/24/21: Findings: Right ?Pressure (mm Hg) ?? BONITA ??Waveform ?? Brachial Artery ?159 ? Common Femoral Artery ?Biphasic ?? Popliteal Artery ? Biphasic ?? Dorsalis Pedis (Ankle) Artery ?94 ?0.59 ??Biphasic ?? Posterior Tibial (Ankle) Artery ??99 ?0.62 ??Biphasic ? Left ? Pressure (mm Hg) ?? BONITA ??Waveform ?? Brachial Artery ?158 ? Common Femoral Artery ?Triphasic ?? Popliteal Artery ? Triphasic ?? Dorsalis Pedis (Ankle) Artery ?135 ? 0.85 ??Triphasic ?? Posterior Tibial (Ankle) Artery ??138 ? 0.87 ??Triphasic ? Interpretation: RIGHT: Moderate lower extremity arterial occlusive disease. Arterial disease is suspected at the iliac level. LEFT: Mild lower extremity arterial occlusive disease. Assessment and Plan: Keri Broussard is a 70 y.o. female presenting with symptoms of claudicationfound to have moderate RLE PAD and mild LLE PAD based on pulse exam and ABIs today: R DP 0.59, R PT0.62, L DP 0.85, and L PT 0.87. Patient's RLE claudication symptoms have progressed over the last year, however, they are not lifestyle limiting at this time. She has no symptoms of ischemic arterialocclusive disease. Plan to start medical management of PAD at this time. Recommend patient start taking daily ASA 81 mg daily and request PCP start patient on daily ASA. Recommend tight control of co-morbidities and complete cardiac work-up per PCP. Encourage patient to start daily walking exercise. Strongly recommend patient quit smoking, she has set a quit date. Follow-up in 3 months with ABIs.Instructed to call the clinic with any concerns prior to next appointment. Shireen Fulton PA-C documented in this encounter Plan of Treatment Upcoming Encounters Date Type Department Care Team (Late st Contact Info) Description 06/29/2024 2:40 PM EDT Office Visit Dermatology at [facility] [address] [place] [address] [facility] [place] [address] documented as of this encounter Results * BONITA, legs, multiple levels (07/23/2021 9:51 AM EDT) VB Text Report Department: Vascular Surgery Lab Patient: [id number] (KERI BROUSSARD) CPT: 62629 ICD10: I77.1;I73.9 Referring Physician: BOAZ BAUTISTA ?? Indications: ??Claudication, known PAD. ??? change in ABIs. Diabetes mellitus: No ICD10 Diagnosis Code: I73.9 Findings: Right ?Pressure (mm Hg) ?? BONITA ??Waveform ? Brachial Artery ?161 ? Dorsalis Pedis (Ankle) Artery ?88 ?0.54 ??Monophasic ? Posterior Tibial (Ankle) Artery ??96 ?0.59 ??Daniels-Biphasic ?? Left ? Pressure (mm Hg) ?? [...] AM EDT Boaz Bautista MD VASCULAR ORDERABLES [facility] documented in this encounter Visit Diagnoses Diagnosis PVD (peripheral vascular disease) with claudication Peripheral vascular disease, unspecified documented in this encounter Care Teams Adobe Architect Relationship Specialty Start Date End Date Ayah Albrecht MD [address] [place] [address] PCP - General 05/04/14 07/23/22 documented as of this encounter
--- OUTSIDE RECORDS SUMMARY | 2024-06-14 01:46 | XMS_ITS | Encounter Summary ---
Author Organization [facility] [place] [address] Care Team Providers Care Rope Coiling Machine Operator Name Role Phone Veronica Meek DO Primary Care Provider [phone]- [phone] Encounter Details Date Type Department Care Team (Latest Contact Info) Description 08/13/2023 Travel Social History Tobacco Use Types Packs/Day [...] 2:40 PM EDT Office Visit Dermatology at [facility] [address] [place] [address] Emmanuelle Yeboah MD [facility] [place] [address] documented as of this encounter Visit Diagnoses Not on filedocumented in this encounter Care Teams Rope Coiling Machine Operator Relationship Specialty Start Date End Date Veronica Meek DO [address] [facility] [place] [address] PCP - General Family Medicine 07/24/22 documented as of this encounter
--- OUTSIDE RECORDS SUMMARY | 2024-06-14 01:46 | XMS_ITS | Encounter Summary ---
Author Organization [facility] [place] [address] Care Team Providers Care Preparer Making Department Name Role Phone Veronica Meek DO Primary Care Provider [phone]- [phone] Encounter Details Date Type Department Care Team (Latest Contact Info) Description 02/06/2023 Travel Social History Tobacco Use Types Packs/Day [...] 2:40 PM EDT Office Visit Dermatology at [facility] [address] [place] [address] Emmanuelle Yeboah MD [facility] [address] [place] [address] documented as of this encounter Visit Diagnoses Not on filedocumented in this encounter Care Teams Preparer Making Department Relationship Specialty Start Date End Date Veronica Meek DO [address] [place] [address] PCP - General Family Medicine 07/24/22 documented as of this encounter
--- OUTSIDE RECORDS SUMMARY | 2024-06-14 01:46 | XMS_ITS | Encounter Summary ---
Author Organization [place] [address] Care Team Providers Care Community Service Representative Name Role Phone Veronica Meek DO Primary Care Provider +1- [phone] Encounter Details Date Type Department Care Team (Latest Contact Info) Description 07/10/2023 Travel Social History Tobacco Use Types Packs/Day [...] 2:40 PM EDT Office Visit Dermatology at [facility] [address] [place] [address] Emmanuelle Yeboah MD [facility] [place] [address] documented as of this encounter Visit Diagnoses Not on filedocumented in this encounter Care Teams Community Service Representative Relationship Specialty Start Date End Date Veronica Meek DO [address] [facility] [address] PCP - General Family Medicine 07/24/22 documented as of this encounter
--- OUTSIDE RECORDS SUMMARY | 2024-06-14 01:46 | XMS_ITS | Encounter Summary ---
Author Organization [facility] [place] [address] Care Team Providers Care Paper Sales Representative Name Role Phone Veronica Meek DO Primary Care Provider +1- [phone] Encounter Details Date Type Department Care Team (Latest Contact Info) Description 03/23/2024 Travel Social History Tobacco Use Types Packs/Day [...] 2:40 PM EDT Office Visit Dermatology at [facility] [address] [place] [address] Emmanuelle Yeboah MD [facility] [place] [address] documented as of this encounter Visit Diagnoses Not on filedocumented in this encounter Care Teams Paper Sales Representative Relationship Specialty Start Date End Date Veronica Meek DO [address] [facility] [place] [address] PCP - General Family Medicine 07/24/22 documented as of this encounter
--- OUTSIDE RECORDS SUMMARY | 2024-06-14 01:46 | XMS_ITS | Encounter Summary ---
Author Organization [facility] Address [address] [place] [address] Care Team Providers Care Caterpillar Mechanic Name Role Phone Unavailable Primary Care Provider Unavailabl e Encounter Details Date Type Department Care Team (Late st Contact Info) Description 11/25/2007 Results Only [facility] [address] [place] [address] Jourdan Duarte MD [address] [place] [id number] Social History Tobacco Use Types Packs/Day Years Used Date Smoking Tobacco: Never Assessed Sex and Gender Information Value Date Recorded Sex Assigned at Not on file Gender Identity Not on file Sexual Orientation Not on file documented as of this encounter Plan of Treatment Not on file documented as of this encounter Procedures Procedure Name Priority Date/Time Associated Diagnosis Comments SURGICAL PATHOLOGY Routine 11/25/2007 0:00 EST documented in this encounter Results * SURGICAL PATHOLOGY (11/25/2007 0:00 EST) Pathology Report: SURGICAL PATHOLOGY REPORT Reports generated via electronic interface contain original data; however they are lacking the format of the original report. Caution should be taken when reading/interpreti ng unformatted reports. Name: ? KERI BROUSSARD ? Accession #: ? [id number] ? : ? 1950 (Age: 57) ??F ? Collect Date: ? 11/25/2007 ? Location: ? [facility] ? Receive Date: ? 11/26/2007 ? Provider: JOURDAN DUARTE MD Copy to: YAO NIEVES MD ? Final Pathologic Diagnosis: A. ?Terminal ileum, biopsies: ? 1. ??Ileal mucosa with no pathologic features. ? B. ?? Colon, ascending, biopsies: ? 1. ??Colonic mucosa with mild melanosis coli. ?2. ?? No evidence of colitis. C. ??Colon, transverse, biopsies: ?1. ?? Colonic mucosa with melanosis coli. ?2. ?? No evidence of colitis. D. ??Colon, sigmoid, biopsies: ? 1. ?? Colonic mucosa with melanosis coli. ? 2. ?? No evidence of colitis. ?? E. ?? Rectum, biopsies: ?1. ?? Rectal mucosa with mild melanosis coli. ?2. ?? No evidence of colitis. ?? Document reviewed and electronically signed by: LIYA HORTON MD Report ??Date: 11/29/2007 20:50 By the signature above, the attending physician certifies that he/she has personally conducted a gross and/or microscopic examination of the described specimens and rendered or confirmed the above diagnosis. Specimen(s) Received: A. ?Bx terminal ileum B. ? Bx ascending colon C. ? Bx transverse colon D. ? Sigmoid bx E. ? Bx rectum ?? Clinical History: ? Diarrhea Gross Description: ? Received in Hollande's fixative labelled Veilleux and bx terminal ileum are four kearns-pink soft tissues ranging from 0.2 x 0.2 x 0.2 cm to 0.3 x 0.2 x 0.2 cm. ??The specimen is entirely submitted as (A1) and (A2). ?? Received in Hollande's fixative labelled Veilleux and bx ascending colon are two kearns-pink soft tissues measuring 0.3 x 0.2 x 0.2 cm and 0.4 x 0.2 x 0.2 cm. The specimen is entirely submitted as (B). Received in Hollande's fixative labelled Veilleux and bx transverse colon are three kearns-pink soft tissues ranging from 0.2 x 0.2 x 0.1 cm to 0.3 x 0.2 x 0.2 cm. ??The specimen is entirely submitted as (C). Received in Hollande's fixative labelled Veilleux and sigmoid bx are two kearns-pink soft tissues measuring 0.3 x 0.3 x 0.2 cm and 0.6 x 0.2 x 0.2 cm. ??The specimen is entirely submitted as (D). Received in Hollande's fixative labelled Veilleux and rectal bx are three kearns-pink soft tissues ranging from 0.2 x 0.2 x 0.2 cm to 0.3 x 0.2 x 0.2 cm. The specimen is entirely submitted as (E). ??(Heidi Gamble)/[facility] End of Report [facility] 11/25/2007 11/26/2007 9:1 8 EST Jourdan Duarte MD PATHOLOGY ORDERABLE S [facility] [address] [place] [address] documented in this encounter Visit Diagnoses Not on filedocumented in this encounter
--- OUTSIDE RECORDS SUMMARY | 2024-06-14 01:46 | XMS_ITS | Encounter Summary ---
Author Organization [facility] Address [address] [place] [address] Care Team Providers Care Account Planner Name Role Phone Unavailable Primary Care Provider Unavailabl e Encounter Details Date Type Department Care Team (Late st Contact Info) Description 04/09/2004 Results Only [facility] [address] [place] [address] Jourdan Duarte MD [address] [place] [id number] Social History Tobacco Use Types Packs/Day Years Used Date Smoking Tobacco: Never Assessed Sex and Gender Information Value Date Recorded Sex Assigned at Not on file Gender Identity Not on file Sexual Orientation Not on file documented as of this encounter Plan of Treatment Not on file documented as of this encounter Procedures Procedure Name Priority Date/Time Associated Diagnosis Comments SURGICAL PATHOLOGY Routine 04/09/2004 0:00 EDT documented in this encounter Results * SURGICAL PATHOLOGY (04/09/2004 0:00 EDT) Pathology Report: SURGICAL PATHOLOGY REPORT Reports generated via electronic interface contain original data; however they are lacking the format of the original report. Caution should be taken when reading/interpreti ng unformatted reports. Name: ? KERI BROUSSARD ? Accession #: ? [id number] ? : ? 1950 (Age: 53) ??F ? Collect Date: ? 04/09/2004 ? Location: ? [facility] ? Receive Date: ? 04/09/2004 ? Provider: JOURDAN DUARTE MD Copy to: BHAVNA LAUGHLIN MD ? Final Pathologic Diagnosis: ? Skin of back, excision: - Melanocytic nevus, compound type, with unusual architectural features and moderate cytologic ??atypia, completely excised. Document reviewed and electronically signed by: Sukhi Vasquez MD Report ??Date: 04/10/2004 17:01 By the signature above, the attending physician certifies that he/she has personally conducted a gross and/or microscopic examination of the described specimens and rendered or confirmed the above diagnosis. Specimen(s) Received: ? Lesion back Clinical History: ? Lesion uncertain behavior; clinical diagnosis code: 238.2 Gross Description: ? Received in formalin labelled Veilleux and lesion back is an unoriented skin ellipse which measures 2.0 x 0.7 cm and is excised to a depth of 0.6 cm. There is a centrally placed nodule which measures 0.4 x 0.3 x 0.1 cm and is kearns-pink and adjacent to the nodule is a 0.3 x 0.3 cm dark brown macule. ??Along one edge of the ellipse cutaneous border is a poorly demarcated hyperemic area which measures 0.4 x 0.1 cm. ??The specimen is inked, serially sectioned and submitted as follows: ?? BLOCK MARCOS A1 ?Distal tips A2 ?Central sections including macule adjacent to papule A3 ?Central sections including portion with papule (Nadia Yang)/g End of Report [facility] STANT[facility] 04/09/2004 04/09/2004 15: 23 EDT Jourdan Duarte MD PATHOLOGY ORDERABLE S [facility] [address] [place] [address] documented in this encounter Visit Diagnoses Not on filedocumented in this encounter
--- OUTSIDE RECORDS SUMMARY | 2024-06-14 01:46 | XMS_ITS | Encounter Summary ---
Author Organization [facility] Address [address] [place] [address] Care Team Providers Care Net Developer Name Role Phone Unavailable Primary Care Provider Unavailabl e Encounter Details Date Type Department Care Team (Late st Contact Info) Description 10/13/2002 Results Only [facility] [address] [place] [address] Russell Lozano MD [address] [place] [address] Social History Tobacco Use Types Packs/Day Years Used Date Smoking Tobacco: Never Assessed Sex and Gender Information Value Date Recorded Sex Assigned at Not on file Gender Identity Not on file Sexual Orientation Not on file documented as of this encounter Plan of Treatment Not on file documented as of this encounter Procedures Procedure Name Priority Date/Time Associated Diagnosis Comments SURGICAL PATHOLOGY Routine 10/13/2002 0:00 EST documented in this encounter Results * SURGICAL PATHOLOGY (10/13/2002 0:00 EST) Pathology Report: SURGICAL PATHOLOGY REPORT Reports generated via electronic interface contain original data; however they are lacking the format of the original report. Caution should be taken when reading/interpreti ng unformatted reports. Name: ? KERI BROUSSARD ? Accession #: ? [id number] ? : ? 1950 (Age: 52) ??F ? Collect Date: ? 10/13/2002 ? Location: ? [facility] ? Receive Date: ? 10/13/2002 ? Provider: UZAIR LOZANO MD Copy to: YAO BARRIENTOS MD ? Final Pathologic Diagnosis: A. ?Colon, descending, biopsy: 1. ?Moderate to marked chronic active colitis consistent with inflammatory bowel disease. ??See comment. ? - Cryptitis. - Crypt abscesses. - Crypt disarray. 2. ?No granulomas, dysplasia, or malignancy. B. ?Ileocecal valve, biopsy: 1. ?Benign colonic mucosa, no specific pathologic features. Comment: ? The changes seen in specimen (A) are consistent with chronic active inflammatory bowel disease, however, it is uncertain if these findings represent active Crohn's disease. ??(Dr. Bourgeois)/[facility] Document reviewed and electronically signed by: Jorge Vasquez MD Report ??Date: 10/17/2002 15:18 By the signature above, the attending physician certifies that he/she has personally conducted a gross and/or microscopic examination of the described specimens and rendered or confirmed the above diagnosis. Specimen(s) Received: A. ?Descending colon ??50 cm (#1)\ B. ?Ileocecal valve (#2) Clinical History: ? FHx IBD Gross Description: ? Received in Hollande' s fixative labelled Veilleux and descending colon is one small irregular fragment of soft tissue measuring 0.2 x 0.2 x 0.1 cm. The specimen is submitted intact as (A). Received in Hollande' s fixative labelled Veilleux and ileocecal valve is one irregular small fragment of soft tissue measuring 0.2 x 0.2 x 0.1 cm. ??The specimen is submitted intact as (B). ??(Dr. Casper)/[facility] End of Report [facility] 10/13/2002 10/13/2002 15: 33 EST Russell Lozano MD PATHOLOGY ORDERABLES Performing Organization Address City/State/[facility] Co de Phone Number [facility] [address] [place] [address] documented in this encounter Visit Diagnoses Not on filedocumented in this encounter
--- OUTSIDE RECORDS SUMMARY | 2024-06-14 01:46 | XMS_ITS | Encounter Summary ---
[place] [address] Care Team Providers Care Surplus Property Disposal Agent Name Role Phone OscarVeronica ventura Myles CHRISTIANSEN Primary Care Provider [phone]- [phone] Encounter Details Date Type Department Care Team (Late st Contact Info) Description 02/06/2023 1:40 PM EDT Office Visit Dermatology at [facility] [address] [place] [id number] Marian Calhoun MD [facility] [place] [address] Actinic keratoses; Seborrheic keratoses; Multiple nevi; Lentigines; Falcon angioma; Seborrheic dermatitis; Notalgia paresthetica Social History Tobacco Use Types Packs/Day Years [...] as of this encounter Progress Notes * Marian Calhoun MD - 02/06/2023 1:40 PM EDT Images from the original note were not included. DEPARTMENT OF DERMATOLOGY Medical Dermatology Clinic Provider: Marian Calhoun MD Patient's preferred name Floridalma Preferred contact method for results [x]Phone []myD-H []Letter Detailed phone message OK? Yes Are there any other people with whom we may discuss your care? No Past Medical History Date, location, treatment Melanoma No Dysplastic nevi No SCC No BCC No AKs No UV Exposure & Protection No Other relevant past medical history No Family History Details Melanoma No NMSC Yes - sister & brother Other relevant family history + Psoriasis; Brother Social History Occupation: Hobbies: Other: Pre-Procedure Screening Details Allergy to lidocaine, epinephrine, Dermabond, chlorhexidine, or adhesives No Bleeding disorder or blood thinners ASA 81mg Implanted devices (Pacemaker, defibrillator, deep brain stimulator, cochlear implant) No History of Present Illness: Floridalma Ibarra is a 72 y.o. Patient returns to clinic today for a full skin exam. Patient reports a few spots of concern located on the abdomen, and back. Patient reports they are all asymptomatic. Last visit at Dermatology: 10/11/2020 Last visit with this provider: 10/11/2020 Medications: Reviewed in eD-H Allergies: Reviewed in eD-H Skin Examination: Full skin examination: Patient asked to undress to their comfort level. Verbalized that the provider's preference is that patient remove all clothing and that the provider will not examine areas patient elects to keep covered. Examination of the scalp, hair, head, face, ears, neck, chest, axillae, abdomen, back, buttocks, genitalia, and upper and lower extremities was normal with the exception ofthe findings below. Assessment/Plan #. Actinic Keratoses - Ill-defined gritty papules on the upper cutaneous lip x3, nasal tip x1, dorsal nose x1. - Explained premalignant potential of these lesions. - Discussed treatment with cryotherapy. Patient elects to proceed with cryotherapy today. - Instructed patient to return to clinic for re-evaluation if lesion(s) does not resolve as expected with this treatment. Procedure: Destruction of lesion(s) with cryotherapy (LN2). Location(s): As noted above. Number: 5 Discussed procedure and expectations, including risks and benefits. Verbal consent obtained. Treated with LN2. There were no complications; Patient tolerated the procedure well. Post-procedure expectations and wound care reviewed. #. BLK EXAM: brown plaque with perifollicular cosme dots on the right AC fossa - asymptomatic or mildly pruritic pink papule or plaque commonly found on sun- exposed areas that requires no further intervention #. Seborrheic Keratoses - Stuck on, waxy papules on the trunk and extremities. - Discussed benign nature of lesions and provided reassurance. No treatment necessary at this time. #. Benign Nevi - Scattered medium brown, evenly pigmented macules and papules on the trunk and extremities with reassuring pigment pattern on dermoscopy. - Discussed benign nature of lesions and provided reassurance. Will continue to monitor. #. Lentigines - Scattered light-brown, evenly pigmented, well-demarcated macules on sun-exposed areas of the trunk and extremities. - No worrisome pigmented lesions. Discussed benign nature of lesions and provided reassurance. Willcontinue to monitor. #. 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 - Discussed benign nature of lesions and provided reassurance. No treatment necessary at this time. #. Seborrheic Dermatitis - Diffuse greasy, loosely adherent scale throughout the scalp. - Discussed etiology and treatment options. - Recommended an OTC anti-dandruff shampoo, such as Head and Shoulders or Selsun Blue. Lather on scalp, leave on for 3-5 minutes, then rinse out. - Start Rx ketoconazole 2% shampoo: Apply topically to scalp in shower 2-3 times weekly. Lather on scalp, leave on 3-5 minutes, then rinse. #. Notalgia Paresthetica - In the central nback area where patient describes intense itch, there isno rash or other skin findings to account for symptoms. - Discussed diagnosis and possible relationship to irritated/inflamed nerve causing recurrent hyperpruritic sensation. - Recommended OTC capsaicin 0.1% cream 5x/day to affected area until itch subsides. Counseled that medication is not water soluble and should be applied with disposable gloves. Other: ??? N/A RTC: 1 year for a full skin exam. []Note routed to secretary administrative assistant [x]Recall placed in scheduling system []Appointment scheduled at checkout Scribe attestation: SAMMY Santa has performed the documentation for this encounter in the presence of and acting as a scribe for Marian Calhoun MD. I performed the above scribed service and agree with the accuracy of the documentation in this encounter. Reviewed and signed by: Marian Calhoun MD Dermatology [facility] Patient seen and evaluated with staff buffing machine operator: Heidi Grace MD Dermatology [facility] * Davon Grace MD - 02/06/2023 1:40 PM EDT I directly supervised Dr. Calhoun during this office visit. Dr. Calhoun presented the history and physical exam to me. I, then, saw and examined this patient with Dr. Calhoun . We reviewed the history and pertinentdetails and I confirmed the physical findings. I agree with the details of the history and physicalexam as documented in Dr. Calhoun's note. DAVON GRACE MD Staff Physician documented in this encounter Plan of Treatment Upcoming Encounters Date Type Department Care Team (Late st Contact Info) Description 06/29/2024 2:40 PM EDT Office Visit Dermatology at [address] [place] [address] Emmanuelle Yeboah MD [facility] [place] [address] documented as of this encounter Visit Diagnoses Diagnosis Actinic keratoses Actinic keratosis Seborrheic keratoses Multiple nevi Benign neoplasm of skin, site unspecified Lentigines Other dyschromia Falcon angioma Nevus, non-neoplastic Seborrheic dermatitis Seborrheic dermatitis, unspecified Notalgia paresthetica Disturbance of skin sensation documented in this encounter Care Teams Surplus Property Disposal Agent Relationship Specialty Start Date End Date Veronica Meek DO [address] [place] [address] PCP - General Family Medicine 07/24/22 documented as of this encounter
--- OUTSIDE RECORDS SUMMARY | 2024-06-14 01:46 | XMS_ITS | Encounter Summary ---
[place] [address] Care Team Providers Care Crossing Watchman Name Role Phone MarybethVeronica anand Myles CHRISTIANSEN Primary Care Provider +1- [phone] Encounter Details Date Type Department Care Team (Late st Contact Info) Description 08/14/2023 Telephone [place] [id number] Dustin Walter RN Social History Tobacco Use Types Packs/Day [...] encounter Miscellaneous Notes * Telephone Encounter - Dustin Walter RN - 08/14/2023 1:25 PM EDT TC to patent. Patient asked question about whether she would be a better candidate to have astent placed if she quit smoking. Patient shared that she has has now had some time to think about it afterher appointment yesterday, because it was a lot to take in. She stated that if it would be a possibility for her to have a stent then it would be an incentive for her to quit. Per note from Dr. Bates on 08/13: Assessment/Plan: Given she is only currently taking 2 agents I do not recommend stenting at this time. In addition, duplex today demonstrates a smaller size kidney and an elevated resistive index suggestive that her renal function would not improve with stenting. Recommend titration of her antihypertensives by her primary care physician to control her hypertension. She will follow-up with us in 1year with repeat renal artery duplex as well as ABIs. Smoking cessation was discussed. Shared with patient this technical publications writer will get a message to Dr. Bates for her to weigh in on whetherher willingness to quit smoking impacts the decision of whether she is a good candidate to have a stent placed. documented in this encounter Plan of Treatment Upcoming Encounters Date Type Department Care Team (Late st Contact Info) Description 06/29/2024 2:40 PM EDT Office Visit Dermatology at [facility] [address] [place] [address] Emmanuelle Yeboah MD [facility] [address] [place] [address] documented as of this encounter Visit Diagnoses Not on filedocumented in this encounter Care Teams Crossing Watchman Relationship Specialty Start Date End Date Veronica Meek DO [address] [place] [address] PCP - General Family Medicine 07/24/22 documented as of this encounter
--- OUTSIDE RECORDS SUMMARY | 2024-06-14 01:46 | XMS_ITS | Encounter Summary ---
Author Organization [facility] [place] [address] Care Team Providers Care Refrigeration Unit Repairer Name Role Phone Veronica Meek DO Primary Care Provider +1- [phone] Encounter Details Date Type Department Care Team (Latest Contact Info) Description 01/14/2023 Travel Social History Tobacco Use Types Packs/Day [...] 2:40 PM EDT Office Visit Dermatology at [facility] [address] [place] [address] Emmanuelle Yeboah MD [facility] [address] [place] [address] documented as of this encounter Visit Diagnoses Not on filedocumented in this encounter Care Teams Refrigeration Unit Repairer Relationship Specialty Start Date End Date Veronica Meek DO [address] [place] [address] PCP - General Family Medicine 07/24/22 documented as of this encounter
--- OUTSIDE RECORDS SUMMARY | 2024-06-14 01:46 | XMS_ITS | Encounter Summary ---
Author Organization [facility] Address [address] [place] [address] Care Team Providers Care Painter Name Role Phone Davonte Dickson MD Primary Care Provider [place] Encounter Details Date Type Department Care Team (Late st Contact Info) Description 12/24/2021 Lab Requisition [facility] Pathology & Laboratory Medicine - [facility] [address] [place], [place] [address] Outr Resulting Lab, Provider Social History Tobacco Use Types Packs/Day Years Used Date Smoking Tobacco: Never Assessed Sex and Gender Information Value Date Recorded Sex Assigned at Not on file Gender Identity Not on file Sexual Orientation Not on file documented as of this encounter Plan of Treatment Not on file documented as of this encounter Procedures Procedure Name Priority Date/Time Associated Diagnosis Comments FERRITIN Routine 12/24/2021 10:43 EST documented in this encounter Results * FERRITIN (12/24/2021 10:43 EST) Ferritin 103 10 - 291 ng/mL 12/25/2021 9:48 EST [facility] Blood VENOUS BLOOD / Unknown 12/24/2021 10:43 EST 12/24/2021 21:35 EST Provider Outr Resulting Lab CHEMISTRY & BLOOD GAS ORDERABLES [facility] [address] [place] [address] documented in this encounter Visit Diagnoses Not on filedocumented in this encounter Care Teams Painter Relationship Specialty Start Date End Date Davonte Dickson MD PCP - General 07/13/14 documented as of this encounter
--- OUTSIDE RECORDS SUMMARY | 2024-06-14 01:46 | XMS_ITS | Encounter Summary ---
Author Organization [facility] Address [address] [place] [address] Care Team Providers Care Digital Field Service Technician Name Role Phone Unavailable Primary Care Provider Unavailabl e Encounter Details Date Type Department Care Team (Late st Contact Info) Description 07/07/2014 Results Only [facility] Laboratory Services - [facility] ([facility] [address] [place], [place] [address] Anish Culver, DO [address] [place] [address] Social History Tobacco Use Types Packs/Day Years Used Date Smoking Tobacco: Never Assessed Sex and Gender Information Value Date Recorded Sex Assigned at Not on file Gender Identity Not on file Sexual Orientation Not on file documented as of this encounter Plan of Treatment Not on file documented as of this encounter Procedures Procedure Name Priority Date/Time Associated Diagnosis Comments SURGICAL PATHOLOGY Routine 07/07/2014 9:36 EDT documented in this encounter Results * SURGICAL PATHOLOGY (07/07/2014 9:36 EDT) Pathology Report: SURGICAL PATHOLOGY REPORT Reports generated via electronic interface contain original data; however they are lacking the format of the original report. Caution should be taken when reading/interpreti ng unformatted reports. Name: ? KERI BROUSSARD ? Accession #: ? [id number] ? : ? 1950 (Age: 63) ??F ? Collect Date: ? 07/07/2014 ? Location: ? [facility] ? Receive Date: ? 07/11/2014 ? Provider: ANISH CULVER DO Copy to: RAPHAEL DIXON MD ? Final Pathologic Diagnosis: A. SMALL BOWEL, DUODENUM, SECOND PORTION, BIOPSY: - ??Duodenal mucosa with no specific pathologic features. B. STOMACH, ANTRUM, BIOPSY: - ??Gastric antral mucosa with no specific pathologic features. C. STOMACH, GREATER CURVE, BIOPSY: - ??Gastric body mucosa with no specific pathologic features. D. ESOPHAGUS, 37 CM, BIOPSY: - ??Squamous mucosa with no specific pathologic features. Document reviewed and electronically signed by: ELVIA QUINTERO MD Report ??Date: 07/12/2014 17:33 By the signature above, the attending physician certifies that he/she has personally conducted a gross and/or microscopic examination of the described specimens and rendered or confirmed the above diagnosis. Specimen(s) Received: A. ??2nd portion duodenum bx B. ??Antrum bx C. ??Greater curve D. ??Bx at 37 cm Clinical History: Chest pain; clinical diagnosis code: 786.50 Gross Description: A. ?Received in formalin labelled with proper patient identification (initials V, M) and 2nd portion duodenum bx are five pink-kearns tissues (0.1 x 0.1 x 0.1 cm to 0.3 x 0.1 x 0.1 cm). Entirely submitted in A1 and A2. B. ?Received in formalin labelled with proper patient identification (initials V, M) and antrum are two pink-kearns tissues (0.1 x 0.1 x 0.1 cm and 0.2 x 0.2 x 0.2 cm). Entirely submitted in B1. C. ?Received in formalin labelled with proper patient identification (initials V, M) and greater curve bx is a single pink-kearns tissue fragment (0.2 x 0.2 x 0.2 cm). Submitted intact in C1. D. ?Received in formalin labelled with proper patient identification (initials V, M) and bx 37 cm are two kearns-white tissues (0.2 x 0.1 x 0.1 cm and 0.3 x 0.2 x 0.1 cm). Entirely submitted in D1. Liz Givens 07/11/2014 10:13 AM End of Report [facility] 07/07/2014 9:36 EDT 07/11/2014 9:36 EDT Anish Culver DO PATHOLOGY ORDERABLES [facility] [address] [place] [address] documented in this encounter Visit Diagnoses Not on filedocumented in this encounter
--- OUTSIDE RECORDS SUMMARY | 2024-06-14 01:46 | XMS_ITS | Encounter Summary ---
Author Organization [facility] [place] [address] Care Team Providers Care Functional Architect Name Role Phone Veronica Meek DO Primary Care Provider +1- [phone] Encounter Details Date Type Department Care Team (Latest Contact Info) Description 08/08/2023 Travel Social History Tobacco Use Types Packs/Day [...] 2:40 PM EDT Office Visit Dermatology at [facility] [address] [place] [address] Emmanuelle Yeboah MD [facility] [address] [place] [address] documented as of this encounter Visit Diagnoses Not on filedocumented in this encounter Care Teams Functional Architect Relationship Specialty Start Date End Date Veronica Meek DO [address] [facility] [place] [address] PCP - General Family Medicine 07/24/22 documented as of this encounter
--- OUTSIDE RECORDS SUMMARY | 2024-06-14 01:46 | XMS_ITS | Encounter Summary ---
[place] [address] Care Team Providers Care Cleaning Machine Operator Name Role Phone AuraVeronica sánchez Myles CHRISTIANSEN Primary Care Provider [phone] Encounter Details Date Type Department Care Team (Late st Contact Info) Description 03/23/2024 10:20 AM EDT Office Visit Dermatology at [facility] [address] [place] [address] Emmanuelle Yeboah MD [facility] [place] [address] Lichen sclerosus; Vulvar atrophy; Seborrheic dermatitis; Multiple melanocytic nevi; Seborrheic keratoses; Lentigines; Falcon angioma; Telangiectasias Social History Tobacco Use Types Packs/Day Years [...] on file documented as of this encounter Patient Instructions * Patient Instructions* Jesus William - 03/23/2024 10:20 AM EDT Lichen Sclerosus What is it? Lichen Sclerosus (LS), is a common, chronic skin disorder that usually affects the genital skin. Itoccurs in about 1:1000 women. It can be found in any age, sex or race, but most often occurs in perimenopausal women. It can be seen in children usually starting at three to five years of age. Although the exact cause of LS is unknown, it does seem to be influenced by genetics, hormones, autoimmune disorders and skin trauma. Genetics - it can develop in sisters or mother and daughters. There may be a positive family history - 22% of people with LS will have LS in a family member. Hormones - there is a clear preference for LS in girls who have not yet reached puberty, and in women who are going through or who are menopausal. Autoimmune disorders - up to 60% of women with LS have reported other autoimmune disorders, especially thyroid disease, vitiligo (white skin patches), and alopecia (baldness). Skin Trauma - this seems to trigger LS, although the exact part that inflammation plays is not yet understood. The trauma may possibly be caused by clothes, friction, urine or perhaps an infectious process. What are the symptoms? Itching: Itching is the most common symptom and may be worse at night, severe enough to interrupt sleep. Other Symptoms: Some women complain of soreness, irritation, painful urination and/or pain with sexual intercourse. Rubbing and scratching the skin can lead to sore open eroded areas that may bleed. This can make sexual intercourse or wearing tight clothing much more uncomfortable. Any activity that increases rubbing and friction in the area will worsen the problem. Many women may have no symptoms at all, and the LS may have first been noticed during a routine examination. The severity of the disease may not match the severity of the symptoms. Skin Appearance: The vulvar skin becomes pale and looks white. It can look crinkled with a shiny cellophane-like surface. These changes may cover the whole vulva and anal area or there may be just small patches of skin whitening typically around the clitoris and the opening to the vagina. Sometimesthe skin splits, bruises and fissures, especially if there is scratching, rubbing or any trauma/injury to the skin in the area. Less commonly there can be white areas on the skin of wrists neck or thighs. Scarring: There may also be scarring of the vulvar skin (e.g. clitoris or labia). You may notice the small vulvar lips (labia minora) are flattened or lost. The clitoris may flatten and/or get covered over. The opening to the vagina may shrink. This can cause pain with sexual intercourse or difficulty with urination. LS does not affect the vagina (except very rarely), and it is not contagious or sexually transmitted. In 10% of cases, LS may be found on other parts of the body but rarely involves the face, hands or feet. In young girls, it is common to see changes around the anus, and they may first complain of constipation or painful urination. How is it diagnosed? A health care provider can often see changes in the skin that will help with the diagnosis. The diagnosis is usually confirmed by taking a small sample of the tissue (a biopsy) and sending it for microscopic examination. This is a simple procedure done in the doctor???s office with a local anesthetic. What is the treatment? Although there is no ???cure?? for LS, it can be controlled very well with the use of strong topical steroid ointments. These can be safely used on the genital skin. Treatment offers relief of itching and discomfort and also prevents further scarring of the skin. Medications and vulvar skin care: The most common cortisone ointments prescribed for this conditionare clobetasol 0.05% or halobetasol 0.05%. A very small amount of the ointment (not cream) is needed. Usually a 15g tube is prescribed to last over a 3 month period. The amount needed may be what onecan crop picker with a toothpick. At the start of treatment, the medication may be used once or twice a day, and then tapered down over time to one to three times a week for maintenance. Other medications may be added to prevent or treat yeast and bacterial infections. These are common when the skin has been scratched or injured. To prevent scratching, sometimes an antihistamine or sleeping medicine may be prescribed. Baths or sitz baths can be very soothing to the skin. Soak the skin once or twice a day in warm water, pat dry (no scrubbing or rubbing) and put plain white petrolatum [facility] (Vaseline) and/or the prescribed ointment on the skin as directed by your provider. It is important to use a very gentle cleanser, (e.g. Dove, Cetaphil) or no soap at all. Use only your hands for cleansing - no facecloth. All other soaps or creams should be stopped. Irritating products, like panty liners or tight synthetic clothes should also be avoided. For very severe scarred cases of LS, surgery may be suggested. Routine evaluation will be needed to control and monitor this chronic skin condition. In patients with LS, 5 to 6% may develop skin cancer. Early treatment should decrease this risk and prevent more scarring. You should examine yourself often and call us if you notice any new sore areas, ulcers, growths or persistent lesions. Consistent treatment with routine exams are very important. Without treatment progressive scarring with shrinkage of tissue occurs. What can I expect? Most women do extremely well with treatment. If treated early the color and texture can return to almost normal. Further scarring can be stopped. Treatment does not reverse scarring. The strong cortisone can occasionally irritate or cause a mild yeast infection. Brief setbacks are common at first, so do not get discouraged. Rarely, if there is very thick LS, other treatments will occasionally be needed. For further information on the Internet http://www.lichenslerosus.org http://www.dermnetnz.org/index.html http://www.issvd.org Support Lichen Sclerosus Support Network www.lssupport.net Lost Labia Chronicles: www.lostlabia.com Makenna Contreras MD on [employer] How To - Topical Corticosteroids: Some common topical corticosteroids that we use for vulvar skin diseases include clobetasol, augmented betamethasone, mometasone, triamcinolone, and halobetasol. In general, we recommend ointments over creams as ointments are less irritating and are ointments are better absorbed. Used on other parts of the body, there is a higher concern for thinning of skin. We are less concerned about this when used on the vulva, although it is possible. Some other risks of topical corticosteroid use include yeast infection and slow wound healing. Only a pencil eraser sized amount should be used to cover the entire vulva. Your vulva should not be feeling greasy after application. Remember a small amount can go far; do not use more than recommended. You should massage the medication into the area for 30-60 seconds for best absorption. Patient Educational Handout: Topical Estrogen for Vulva Health Understanding Topical Estrogen for Vulva Health What is Topical Estrogen? Topical estrogen refers to a form of medication that is applied directly to the skin of the vulva (external genitalia) to address certain conditions or symptoms related to vulva health. Estrogen is ahormone that plays a crucial role in maintaining the health and function of the vulvar tissues. When is Topical Estrogen Prescribed? Your healthcare provider may prescribe topical estrogen if you are experiencing any of the following conditions or symptoms: Vulvar Atrophy: This condition occurs when the vulvar tissues become thin, dry, and less elastic, usually due to a decline in estrogen levels, such as during menopause or after certain cancer treatments. Vulvar Dryness and Itching: Topical estrogen can help alleviate dryness and itching of the vulva, which can be caused by hormonal changes, irritants, or certain skin conditions. Painful Rolling Fields: If you are experiencing pain or discomfort during sexual activity due to vulvar atrophy or dryness, topical estrogen may provide relief by restoring moisture and elasticity to the vulvar tissues. Safety of Topical Estrogen It is important to note that topical estrogen used for vulva health carries a minimal systemic absorption, which means it has limited effects on the rest of the body. The available evidence suggests that the use of topical estrogen does not increase the risk of breast cancer, uterine cancer, or blood clots when used as prescribed. However, it is essential to discuss your medical history and any concerns with your healthcare provider before starting any new medication. Using [employer] to Access Affordable Topical Estrogen [employer] is a valuable resource that can help you obtain your prescribed topical estrogen at a more affordable perry. [employer] provides discounts and coupons for a wide range of medications, making them accessible to individuals without insurance coverage or with high copayments. Here's how to use [employer]: Visit the Website or Mc: Go to www.[employer] or download the [employer] mc on your smartphone or tablet. Search for Your Medication: Enter the name of the topical estrogen prescribed by your healthcare provider in the search bar. Compare Prices: [employer] will display a list of pharmacies in your area along with the discounted prices available. Compare the prices to find the most affordable option. Get a Coupon: Select the desired pharmacy and dosage, then click on Get Free Coupon. You can either print the coupon or save it on your smartphone. Present the Coupon: Show the coupon to the pharmacist when you crop picker your prescription. They willapply the discount to ensure you receive the reduced perry. Remember, prices may vary between pharmacies, so it's beneficial to compare different options available through [employer] to find the best perry for your medication. documented in this encounter Progress Notes * Emmanuelle Yeboah MD - 03/23/2024 10:20 AM EDT Images from the original note were not included. DEPARTMENT OF DERMATOLOGY Medical Dermatology Clinic Provider: Emmanuelle Yeboah MD Patient's preferred name Floridalma Preferred contact method for results [x]Phone []myD-H []Letter Detailed phone message OK? Yes Are there any other people with whom we may discuss your care? No Past Medical History Date, location, treatment Melanoma No Dysplastic nevi No SCC No BCC No AKs Yes - LN2 UV Exposure & Protection No Other relevant [...] of Present Illness: Floridalma Ibarra is a 73 y.o. Patient returns to clinic today for a full skin exam. Patient reports the following: - Pruritus of the vulvar area. Currently not applying anything topically for relief. Previously applied topical estrogen cream to affected areas, but she was told to stop and then it returned and shewas told there was nothing there. - Terrible itch of the scalp. Last visit at Dermatology: 02/06/2023 Last visit with this provider: Visit date not found Medications: Reviewed in eD-H Allergies: Reviewed in [...] the exception ofthe findings below. Assessment/Plan #. Favor Lichen Sclerosus Thin white atrophic plaques on the clitoral vences, and labia minora and perianal skin. - Discussed that this is an autoimmune inflammatory condition that occurs in the genital skin. - Discussed that this can lead to scarring over time. There is a slightly increased risk (~5%) of askin cancer in the area due to chronic inflammation. - Extensive AVS on LS etiology and treatment options printed and provided to patient. - Patient denies prior history of skin rashes included but not limited to eczema, psoriasis or lichen planus. - Start Rx clobetasol 0.05% ointment: Apply a thin amount twice weekly for 3 months as demonstrated. Then three times a week for maintenance. #. Vulvar Atrophy Fissuring and the posterior fourchette, adhesions of the labia minora and labia majora. - This condition is associated with low estrogen and is common in postmenopausal women - Discussed application technique and demonstrated - Start Rx Estradiol 0.1% cream: Apply a thin amount twice weekly for 3 months as demonstrated. Then three times a week for maintenance. - Follow up in 3 months [place] only. #. Seborrheic Dermatitis Diffuse greasy, loosely adherent scale throughout the scalp. - Discussed etiology and treatment options. - Recommended an OTC anti-dandruff shampoo, such as Head and Shoulders or Selsun Blue. Lather on scalp, leave on for 3-5 minutes, then rinse out. - Continue and refill Rx ketoconazole 2% shampoo: Apply topically to scalp in shower 2-3 times weekly. Lather on scalp, leave on 3-5 minutes, then rinse. #. Melanocytic Nevi Scattered brown macules and papules on trunk and extremities with reassuring pigment pattern on dermoscopy. - Discussed benign appearing nevi based on today's exam. - Recommended follow-up with dermatology if any changes in any pigmented lesions are noted or any concerns regarding new lesions arise. #. Seborrheic Keratoses Stuck on, waxy papules on the trunk and extremities. - Discussed benign nature of lesions and provided reassurance. No treatment necessary at this time. #. Lentigines Scattered light-brown, evenly pigmented, well-demarcated macules on sun-exposed areas of the trunk and extremities. - No worrisome pigmented lesions. Discussed benign nature of lesions and provided reassurance. Willcontinue to monitor. #. Falcon Angiomas Multiple bright red, well-demarcated papules on the trunk and extremities. - Discussed benign nature of lesions and provided reassurance. No treatment necessary at this time. #. Telangiectasias Dilated blood vessels on the face. - Discussed benign nature of lesion(s) and provided reassurance. No treatment necessary at this time. - Briefly discussed the option of treating cosmetically with V-Beam. Other: N/A RTC: 3 months for LS follow up; 1 year for FSE [x]Note routed to special education secretary [x]Recall placed in scheduling system []Appointment scheduled at checkout Scribe attestation: Jesus William has performed the documentation for this encounter in the presence of and acting as a scribe for Emmanuelle Yeboah MD. I performed the above scribed service and agree with the accuracy of the documentation in this encounter. Reviewed and signed by: Emmanuelle Yeboah MD Dermatology [facility] Patient seen and evaluated with staff pricer bagger: Tashi Shankar MD Dermatology [facility] * Tashi Shankar MD - 03/23/2024 10:20 AM EDT I directly supervised Emmanuelle Yeboah MD in the care of this Dermatology patient in person. I saw and evaluated this patient with Emmanuelle Yeboah MD. Emmanuelle Yeboah MD presented the history and physical exam details to me, then we saw the patient together, and I confirmed these findings. I agree with details as written. My physical examinationconfirms Emmanuelle Yeboah MD's findings. The assessment and plan were formulated in discussion with me at the time of visit, and I agree with them as documented. TASHI SHANKAR MD Staff Cushion Maker Hand Department of Dermatology [facility] documented in this encounter Plan of Treatment Upcoming Encounters Date Type Department Care Team (Late st Contact Info) Description 06/29/2024 2:40 PM EDT Office Visit Dermatology at [facility] [address] [place] [address] Emmanuelle Yeboah MD [facility] [place] [address] documented as of this encounter Visit Diagnoses Diagnosis Lichen sclerosus Circumscribed scleroderma Vulvar atrophy Atrophy of vulva Seborrheic dermatitis Seborrheic dermatitis, unspecified Multiple melanocytic nevi Seborrheic keratoses Lentigines Other dyschromia Falcon angioma Nevus, non-neoplastic Telangiectasias Other and unspecified capillary diseases documented in this encounter Care Teams Cleaning Machine Operator Relationship Specialty Start Date End Date Veronica Meek DO [address] [place] [address] PCP - General Family Medicine 07/24/22 documented as of this encounter
--- OUTSIDE RECORDS SUMMARY | 2024-06-14 01:46 | XMS_ITS | Encounter Summary ---
[place] [address] Care Team Providers Care Director Surgical Name Role Phone Veronica Meek DO Primary Care Provider [phone] Reason for Referral * Diagnostic Test (Routine) - Authorized Specialty Diagnoses / Procedures Referred By Contac t Referred To Contact Diagnoses PVD (peripheral vascular disease) with claudication Procedures BONITA, legs, multiple levels Jasmyne Thompson TRAVERSE ROD ASSEMBLER [facility] [place] [address] [facility] Vascular Lab [address] [place] [phone] Referral ID Status Reason Start Date Expiration Date Visits Requested Visits Authorized [id number] Authorized Specialty Service Requested 07/16/2023 07/15/2024 1 1 * Diagnostic Test (Routine) - Closed Specialty Diagnoses / Procedures Referred By Contac t Referred To Contact Diagnoses Renal artery stenosis Procedures Duplex Study Renal Arteries, Bilat Jasmyne Thompson TRAVERSE ROD ASSEMBLER [facility] [place] [address] [facility] Lab [address] [place] [phone] Referral ID Status Reason Start Date Expiration Date V isits Requested Visits Authorized [id number] Closed Specialty Service Requested 07/16/2023 07/15/2024 1 1 Encounter Details Date Type Department Care Team (Late st Contact Info) Description 07/10/2023 3:00 PM EDT Office [place] [address] Jasmyne Thompson APRN [facility] [place] [place] [address] PVD (peripheral vascular disease) with claudication; Renal artery stenosis Social History Tobacco Use Types Packs/Day Years Used Date Smoking Tobacco: Every Day Cigarettes 0.5 50 Smokeless Tobacco: Never Tobacco Cessation:Ready to Q uit: Not Asked; Counseling Given: Not Answered Comments:About 6 cigarettes a day Alcohol Use Standard Drinks/Week Comments Yes 1.7 (1 standard drink = 0.6 oz p ure alcohol) Sex and Gender Information Value Date Recorded Sex Assigned at Not on file Gender Identity Not on file Sexual Orientation Not on file documented as of this encounter Last Filed Vital Signs Vital Sign Reading Time Taken Comments Blood Pressure 174/82 07/10/2023 2:54 PM EDT Pulse 59 07/10/2023 2:54 PM EDT Temperature - - Respiratory Rate - - Oxygen Saturation - - Inhaled Oxygen Concentration - - Weight 64.4 kg (142 lb) 07/10/2023 2:54 PM EDT Height 160 cm (5' 3) 07/10/2023 2:54 PM EDT Body Mass Index 25.15 07/10/2023 2:54 PM EDT documented in this encounter Progress Notes * Jasmyne Thompson APRN - 07/10/2023 3:00 PM EDT Vascular Follow-Up Reason for Visit: Keri Broussard is a 72 y.o. female presenting for follow-up PAD. HPI: Keri Broussard is a 72 y.o. female with PMH: HTN, GERD, ETOH dependence, emphysema and PAD.There is a listed diagnosis of carotid occlusion with no imaging to confirm and pt and daughter areunaware of dx, will remove today. Pt presents today with daughter to review PAD and CTA findings, renal artery stenosis. Today, pt endorses BLE claudication, L>R with discomfort after varying times/distances with walking. She endorses intermittent pain in BLE that can be 8/10 in severity. She has been experiencing pelvic/groin pain for which she had the recent CTA. She is due to follow-up with GI soon. Pt remains independent. She has had a recent fall (this AM) and relates this to ongoing dizziness and fatigue for which she is being worked up. She denies head injury or LOC, hit her left arm that has some mild bruising. She denies BLE rest pain, tissue loss or edema. She reports elevated BP that has become difficult to control on 2 agents, though her medications are currently being evaluated/changed. Denies chest pain, endorses mild SOB 2/t COPD. She denies s/sx CVA/TIA. She is a current 1 ppd smoker. She is taking daily ASA and statin. Pt is accompanied by daughter. 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 As well as heavy calcification of R renal artery origin. Prior Vascular Hx: None Atherosclerotic RF: DM (N) HTN (Y) CAD (Y) CHF (N) HLD (N) CVA (N) Tobacco (Y) - Current 1 pack per day smoker with >50 pack-year hx. Problem List: Patient Active Problem List Diagnosis Code Chest tightness or pressure R07.89 Osteoporosis M81.0 Spinal stenosis M48.00 RLS (restless legs syndrome) G25.81 Nicotine dependence F17.200 Depression F32.A Fibromyalgia M79.7 IBS (irritable bowel syndrome) K58.9 Carotid bruit R09.89 PVD (peripheral vascular disease) with claudication I73.9 Medications: Current Outpatient Medications on File Prior to Visit Medication Sig Dispense Refill ketoconazole (NIZORAL) 2 % Shampoo Shampoo and let it sit for 5-10 minutes, then rinse. Recommend applying 2 to 3 times weekly. 120 mL 3 Ventolin HFA 90 mcg/actuation HFA Aerosol Inhaler INHALE ONE TO TWO PUFFS BY MOUTH FOUR TIMES A DAYAS NEEDED FOR FOR SHORTNESS OF BREATH Incruse Ellipta 62.5 mcg/actuation Disk with Device Inhale 1 puff into the lungs daily. varenicline (CHANTIX) 0.5 mg (11)- 1 mg (42) Tablets, Dose Pack TAKE PER PACKAGE DIRECTIONS acetaminophen (Tylenol) 500 mg Tablet As needed ibuprofen (Advil) 200 mg Tablet Q6H rosuvastatin (Crestor) 10 mg Tablet Take by mouth. senna-docusate (Pericolace) 8.6-50 mg Tablet Take by mouth. melatonin 5 mg Tablet Take by mouth. calcium carb/magnesium hydrox (MYLANTA ORAL) Take by mouth as needed. Liquid. DULoxetine DR (Cymbalta) 20 mg Capsule, Delayed Release(E.C.) Take 20 mg by mouth daily. UNABLE TO FIND Med Name: Citrical OTC supplement pantoprazole (PROTONIX) 40 mg tablet Take 1 tablet by mouth daily. 90 tablet 3 aspirin 81 mg EC tablet Take 1 tablet by mouth daily. 30 tablet 3 gabapentin (NEURONTIN) 600 mg tablet Take 600 mg by mouth nightly. Calcium Carbonate-Vit D3-Min 600 mg calcium- 400 unit Tab Take by mouth daily. No current facility-administered medications on file prior to visit. Review of Systems: Constitutional (weight change, fever) - Denies Neuro (dizziness, seizures, numbness, tingling) - See HPI Eyes (vision) - Denies Ears, nose, throat (hearing) - Denies Cardiovascular (CP) - Denies Respiratory (SOB) - Denies GI (abd pain, nausea, emesis, blood in stool) - Denies (hematuria, dysuria, frequency) - Denies Muscoloskeletal (extremity pain, weakness) - See HPI Skin (ulcers, rashes) - Denies Physical Exam: BP 174/82 (BP Location (NBP): Right arm, Patient Position: Sitting, BP Cuff Sizes: Adult (25-34 cm)) Pulse 59 Ht 160 cm (5' 3) Wt 64.4 kg (142 lb) BMI 25.15 kg/m?? GEN: Alert and appears stated age. Cooperative. In NAD. HEENT: Normocephalic and atraumatic. CV: RRR. S1/S2 present. Pulm: Clear to auscultation bilaterally. Abd: Soft, non-distended, non-tender to palpation. Skin: Color, texture, turgor normal. No rashes or lesions. Neuro: No gross sensory or motor abnormality. Extremities: Bilateral UE and LE warm and pink. No edema. No wounds. Bruising present to left lateral arm, no wounds. Vascular Exam: R L Carotid Bruit No No Radial 2/2 2/2 Femoral 2/2 2/2 Popliteal 0/2 2/2 DP 1/2 2/2 PT 0/2 0/2 07/10/2023 ABIFindings: Right Pressure (mm Hg) BONITA Waveform Brachial Artery 189 Dorsalis Pedis (Ankle) Artery 122 0.65 Houghton-Biphasic Posterior Tibial (Ankle) Artery 123 0.65 Biphasic [...] ---- ---- Current 0.85(-.09) 0.86(-.03) ---- --- Assessment/Plan: Keri Broussard is a 72 y.o. female with BLE PAD. Pt and daughter question if recent findings of iliac/femoral artery stenosis could be contributing to pt's ongoing lower abdominal/pelvis pain. I explained that the stenosis present would typically lend to distal leg pain, if any at all and does not cause pain at the site of stenosis, typically. Pt's BLE ABIs are stable, above and she is asymptomatic in terms of PAD. I explained collateral circulation with good understanding from pt and daughter. Follow-up in 1 year with ABIs, sooner as needed for increased sx. Daughter is concerned for renal artery stenosis in light of HTN. We can obtain a renal artery duplex to review level of stenosis and flow. Continue current HTN treatment per PCP. Follow-up in 1 monthwith renal duplex and clinic visit to review findings. Recommend pt continue statin and ASA. Continue ongoing workup for dizziness/fatigue and avoid falls. Strongly recommend patient quit smoking, she is actively trying to cut back. Instructed to call the clinic with any concerns prior to next appointment. Jasmyne Thompson APRN Department of Vascular Surgery documented in this encounter Plan of Treatment Upcoming Encounters Date Type Department Care Team (Late st Contact Info) Description 06/29/2024 2:40 PM EDT Office Visit Dermatology at [facility] [address] [place] [address] Emmanuelle Yeboah MD [facility] [place] [address] documented as of this encounter Results * Duplex Study Renal Arteries, Bilat (08/13/2023 8:23 AM EDT) VB Text Report Department: Vascular Surgery Lab Patient: [id number] (KERI BROUSSARD) CPT: 95005 Referring Physician: JASMYNE THOMPSON ?? Phone: Indications: renal artery stenosis on CT Findings: Arcelia Renal Aorta ? PSV (cm/s): 71 ? EDV (cm/s): 13 ? RI: 0.81 Renal Artery Ostium, Right ? PSV (cm/s): 294 ? EDV (cm/s): 51 ? RAR: 4.1 ? RI: 0.83 Renal Artery Proximal, Right ? PSV (cm/s): 315 ? EDV (cm/s): 60 ? RAR: 4.4 ? RI: 0.81 Renal Artery Mid, Right ? PSV (cm/s): 131 ? EDV (cm/s): 43 ? RAR: 1.8 ? RI: 0.67 Renal Artery Distal, Right ? PSV (cm/s): 73 ? EDV (cm/s): 19 ? RAR: 1.0 ? RI: 0.73 Mid Pole Renal Parenchyma, Right ? PSV (cm/s): 27 ? EDV (cm/s): 9 ? RI: 0.68 Renal Hilum, Right ? AT (ms): 60 Kidney Length, Right ? Length (cm): 7.8 Renal Vein, Right ? Patent: Patent Renal Artery Ostium, Left ? PSV (cm/s): 134 ? EDV (cm/s): 28 ? RAR: 1.9 ? RI: 0.79 Renal Artery Proximal, Left ? PSV (cm/s): 146 ? EDV (cm/s): 33 ? RAR: 2.1 ? RI: 0.77 Renal Artery Mid, Left ? PSV (cm/s): 117 ? EDV (cm/s): 33 ? RAR: 1.6 ? RI: 0.72 Renal Artery Distal, Left ? PSV (cm/s): 90 ? EDV (cm/s): 24 ? RAR: 1.3 ? RI: 0.74 Mid Pole Renal Parenchyma, Left ? PSV (cm/s): 39 ? EDV (cm/s): 11 ? RI: 0.72 Renal Hilum, Left ? AT (ms): 30 Kidney Length, Left ? Length (cm): 10.3 Renal Vein, Left ? Patent: Patent Interpretation: Right: Patent main renal artery with elevated velocities consistent with >60% stenosis. Patent main renal vein. The kidney is approximately 2.0 cm smaller than the LEFT. Left: Patent main renal artery with no evidence of hemodynamically significant stenosis. Patent main renal vein. Comparison: ??No previous study in our vascular lab database for comparison. Electronically Signed by: CHAYA LUNDBERG on 2023-08-18 08:37:57 AM [facility] VB Text Report End of Report [facility] 08/13/2023 8:23 AM EDT Jasmyne Thompson APRN VASCULAR ORDERABLES [facility] documented in this encounter Visit Diagnoses Diagnosis PVD (peripheral vascular disease) with claudication Peripheral vascular disease, unspecified Renal artery stenosis Atherosclerosis of renal artery documented in this encounter Care Teams Director Surgical Relationship Specialty Start Date End Date Veronica Meek DO [address] [place] [address] PCP - General Family Medicine 07/24/22 documented as of this encounter
--- OUTSIDE RECORDS SUMMARY | 2024-06-14 01:46 | XMS_ITS | Encounter Summary ---
Author Organization [facility] [place] [address] Care Team Providers Care Skating Carhop Name Role Phone Ayah Albrecht MD Primary Care Provider [phone] Reason for Referral * Diagnostic Test (Routine) - Closed Specialty Diagnoses / Procedures Referred By Contac t Referred To Contact Diagnoses Pain of lower extremity, unspecified laterality Procedures BONITA, legs, multiple levels Jesus Kam APRN [facility] [place] [address] [facility] Vascular Lab [address] [address] Referral ID Status Reason Start Date Expiration Date V isits Requested Visits Authorized [id number] Closed Specialty Service Requested 04/23/2021 04/23/2022 1 1 Encounter Details Date Type Department Care Team (Late st Contact Info) Description 04/23/2021 Orders [place] [address] Jesus Kam APRN [facility] [place] [address] Pain of lower extremity, unspecified laterality Social History Tobacco Use Types Packs/Day Years Used Date Smoking Tobacco: Every Day Cigarettes 0.5 50 Alcohol Use Standard Drinks/Week Comments Yes 1.7 [...] 2:40 PM EDT Office Visit Dermatology at [facility] [address] [place] [address] Emmanuelle Yeboah MD [facility] [address] [place] [place] [address] documented as of this encounter Results * BONITA, legs, multiple levels (04/24/2021 10:50 AM EDT) VB Text Report Department: Vascular Surgery Lab Patient: [id number] (KERI BROUSSARD) CPT: 92399 ICD10: M79.606;I77.1;I7 0.213 Referring Physician: JESUS KAM, FELICITY ?? Indications: bilateral lower extremity claudication (right worse than left), hx CAD, ? lower extremity arterial disease Diabetes mellitus: no ICD10 Diagnosis Code: I70.213, I77.1, M79.606 Findings: Right ?Pressure (mm Hg) ?? BONITA ??Waveform ?? Brachial Artery ?159 ? Common Femoral Artery ?Biphasic ?? Popliteal Artery ? Biphasic ?? Dorsalis Pedis (Ankle) Artery ?94 ?0.59 ??Biphasic ?? Posterior Tibial (Ankle) Artery ??99 ?0.62 ??Biphasic ?? Left ? Pressure (mm Hg) ?? BONITA ??Waveform ?? Brachial Artery ?158 ? Common Femoral Artery ?Triphasic ?? Popliteal Artery ? Triphasic ?? Dorsalis Pedis (Ankle) Artery ?135 ? 0.85 ??Triphasic ?? Posterior Tibial (Ankle) Artery ??138 ? 0.87 ??Triphasic ?? Interpretation: RIGHT: Moderate lower extremity arterial occlusive disease. Arterial disease is suspected at the iliac level. LEFT: Mild lower extremity arterial occlusive disease. NOTE: Hypertension is present based on Doppler derived systolic brachial blood pressure. Comparison: No previous study in our vascular lab database for comparison. Electronically Signed by: BHAVNA BURRIS M.D. on 2021-04-24 11:30:21 AM [facility] VB Text Report End of Report [facility] 04/24/2021 10:5 0 AM EDT Jesus Kam AUTOMATIC QUILLING MACHINE OPERATOR VASCULAR ORDERABLE S [facility] documented in this encounter Visit Diagnoses Diagnosis Pain of lower extremity, unspecified laterality documented in this encounter Care Teams Skating Carhop Relationship Specialty Start Date End Date Ayah Albrecht MD [address] [place] [address] PCP - General 05/04/14 07/23/22 documented as of this encounter
--- OUTSIDE RECORDS SUMMARY | 2024-06-14 01:46 | XMS_ITS | Encounter Summary ---
Author Organization [facility] Address [address] [place] [address] Care Team Providers Care Operations Forester Name Role Phone Davonte Dickson MD Primary Care Provider Willie figueroa Encounter Details Date Type Department Care Team (Late st Contact Info) Description 04/12/2022 Lab Requisition [facility] Pathology & Laboratory Medicine - [facility] [address] [place], [place] [address] Outr Resulting Lab, Provider Social History Tobacco [...] Procedure Name Priority Date/Time Associated Diagnosis Comments ZZCOVID-19 TEST [facility] LAB PCR Today 04/12/2022 10:15 EDT COVID-19 TESTING Routine 04/12/2022 10:1 5 EDT documented in this encounter Results * COVID-19 TEST [facility] LAB PCR (04/12/2022 10:15 EDT) Swab 04/12/2022 10:1 5 EDT 04/13/2022 16:48 EDT Provider Outr Resulting Lab MICROBIOLOGY - GENERAL ORDERABLES [facility] [address] [place] [address] * COVID-19 TESTING (04/12/2022 10:15 EDT) COVID-19 rt-PCR Result Negative Negative 04/14/2022 14:43 EDT [facility] Comment: This test has not been FDA cleared or approved. This test has been authorized by FDA under an EUA for use by authorized laboratories. This test has been authorized only for detection of nucleic acid from 2019-nCoV, not for any other viruses or pathogens. This test is only authorized for the duration of the declaration that circumstances exist justifying the authorization of emergency use of in vitro diagnostic tests for detection and/or diagnosis of 2019-nCoV under section 564(b)(1) of Act, 21 U.S.C ?? 360bbb-3(b) (1), unless the authorization is terminated or revoked sooner. Negative results do not preclude 2019-nCoV infection and should not be used as the sole basis for treatment or other patient management decisions. Negative results must be combined with clinical observations, patient history, and epidemiological information. Testing was performed using the aaron SARS-CoV-2 assay ([employer] on the Aaron 6800 System Performing Lab Aaron 6800 [facility] Lab 04/14/2022 14:43 EDT [facility] Swab 04/12/2022 10:1 5 EDT 04/13/2022 16:48 EDT Provider Outr Resulting Lab MICROBIOLOGY - GENERAL ORDERABLES [facility] [address] [place] [address] documented in this encounter Visit Diagnoses Not on filedocumented in this encounter Care Teams Operations Forester Relationship Specialty Start Date End Date Davonte Dickson MD PCP - General 07/13/14 documented as of this encounter
--- OUTSIDE RECORDS SUMMARY | 2024-06-14 01:46 | XMS_ITS | Encounter Summary ---
Author Organization [facility] Address [address] [place] [address] Care Team Providers Care Manager Quality Name Role Phone Davonet Dickson MD Primary Care Provider U bettyernie Encounter Details Date Type Department Care Team (Late st Contact Info) Description 06/10/2023 Lab Requisition [facility] Pathology & Laboratory Medicine - [facility] [address] [place] [address] Yury Kendrick MD [address] [place] [address] Abdominal distension (gaseous); Epigastric pain; Gastro-esophageal reflux disease without esophagitis Social History Tobacco Use Types Packs/Day Years Used Date Smoking Tobacco: Never Assessed Sex and Gender Information Value Date Recorded Sex Assigned at Not on file Gender Identity Not on file Sexual Orientation Not on file documented as of this encounter Plan of Treatment Not on file documented as of this encounter Procedures Procedure Name Priority Date/Time Associated Diagnosis Comments SURGICAL PATHOLOGY Today 06/10/2023 9: 48 EDT Abdominal distension (gaseous) Epigastric pain Gastro-esophageal reflux disease without esophagitis documented in this encounter Results * SURGICAL PATHOLOGY (06/10/2023 9:48 EDT) Note to Patient The following pathology results have been interpreted by your pathologist and may be available to you before your health provider has had the opportunity to review them. Please allow time for your provider to receive these results and explore management options, if applicable. 06/12/2023 11:26 EDT [facility] Final Diagnosis A. DUODENUM, BIOPSY: - Duodenal mucosa with no significant diagnostic abnormalities. B. STOMACH, ANTRUM, BIOPSY: - Gastric fundic mucosa with no significant diagnostic abnormalities. - Negative for Helicobacter pylori on H&E stained sections. C. GASTROESOPHAGEAL JUNCTION, BIOPSY: - Squamocolumnar mucosa with mild reactive changes. - Negative for intestinal metaplasia and dysplasia. 06/12/2023 11:26 [facility] Attestation By the signature below, the attending physician certifies that they have 1) personally conducted a gross and/or microscopic examination of the described specimen(s), and/or personally interpreted the results of laboratory testing of the described specimen(s), and 2) personally rendered or confirmed the above diagnosis. 06/12/2023 11:26 [facility] at 1126 Clinical History Epigastric pain, GERD, bloating, gastritis, duodenitis 06/12/2023 11:26 [facility] Gross Description A. Received in formalin labelled with proper patient identification (initials V, M) and 1. Duodenum biopsy x2 are 4 kearns tissues (0.4 x 0.2 x 0.1 cm to 0.2 x 0.1 by less than 0.1 cm). Entirely submitted in A1. Please note the smallest tissue may not survive processing. B. Received in formalin labelled with proper patient identification (initials V, M) and 2. Antrum Bx x1 is a single kearns tissue (0.3 x 0.2 x 0.1 cm). Submitted intact in B1. C. Received in formalin labelled with proper patient identification (initials V, M) and 3. GE junction Bx x2 are 3 transparent kearns-white to kearns tissues (0.4 x 0.2 by less than 0.1 cm to 0.3 x 0.2 x 0.1 cm). Entirely submitted in C1. Laura Lea 06/11/2023 9:27 06/12/2023 11:26 [facility] Performing Lab [facility] 11:26 [facility] Scanned Images 06/12/2023 11:26 [facility] Tissue ENTIRE ESOPHAGUS / Unknown 06/10/2023 9:48 EDT 06/10/2023 19:02 EDT Tissue specimen (specimen) STOMACH STRUCTURE / Unknown 06/10/2023 9:48 EDT 06/10/2023 19:02 EDT Tissue specimen (specimen) ESOPHAGEAL STRUCTURE / Unknown 06/10/2023 9:48 EDT 06/10/2023 19:02 EDT Yury Kendrick MD PATHOLOGY ORDERA [facility] Organization Address City/State/ZIP Co de Phone Number [facility] [address] [place] [address] documented in this encounter Visit Diagnoses Diagnosis Abdominal distension (gaseous) Flatulence, eructation, and gas pain Epigastric pain Abdominal pain, epigastric Gastro-esophageal reflux disease without esophagitis Esophageal reflux documented in this encounter Care Teams Manager Quality Relationship Specialty Start Date End Date Davonte Dickson MD PCP - General 07/13/14 documented as of this encounter
--- OUTSIDE RECORDS SUMMARY | 2024-06-14 01:46 | XMS_ITS | Encounter Summary ---
Author Organization [facility] [place] [place] [address] Care Team Providers Care Flagsetter Name Role Phone Veronica Meek DO Primary Care Provider [phone] Encounter Details Date Type Department Care Team (Late st Contact Info) Description 06/19/2023 Ancillary Procedure [place] [id number] Veronica Meek DO [address], [place] [id number] Social History Tobacco Use Types Packs/Day Years [...] 2:40 PM EDT Office Visit Dermatology at [facility] [address] [place] [address] Emmanuelle Yeboah MD [facility] [address] [place] [address] documented as of this encounter Procedures Procedure Name Priority Date/Time Associated Diagnosis Comments FILM LIBRARY STORAGE ONLY CT ABDOMEN AND PELVIS Routine 06/19/2023 12:00 AM EDT documented in this encounter Results * Film Library- Storage Only CT Abdomen & Pelvis (06/19/2023 12:00 AM EDT) Narrative [facility] - 06/27/2023 3:52 AM EDT This exam is auto-finalizing. It's purpose is for storage only. Veronica Meek DO IMG FILM LIBRARY O RDERABLES [place], [place] documented in this encounter Visit Diagnoses Not on filedocumented in this encounter Care Teams Flagsetter Relationship Specialty Start Date End Date Veronica Meek DO [address] [place] [address] PCP - General Family Medicine 07/24/22 documented as of this encounter
--- OUTSIDE RECORDS SUMMARY | 2024-06-14 01:46 | XMS_ITS | Encounter Summary ---
Author Organization [facility] [place] [address] Care Team Providers Care Garment Folder Name Role Phone Veronica Meek DO Primary Care Provider [phone] Reason for Visit * Diagnostic Test (Routine) - Closed Specialty Diagnoses / Procedures Referred By Contac t Referred To Contact Diagnoses Renal artery stenosis Procedures Duplex Study Renal Arteries, Jasmyne Lopez APRN [facility] [place] [address] [facility] Vascular Lab [address] [address] Referral ID Status Reason Start Date Expiration Date V isits Requested Visits Authorized [id number] Closed Specialty Service Requested 07/16/2023 07/15/2024 1 1 Encounter Details Date Type Department Care Team (Late st Contact Info) Description 08/13/2023 8:30 AM EDT Tech [place] [address] Thompson Rodriguez, RVT Renal artery stenosis Social History Tobacco Use [...] PM EDT Office Visit Dermatology at [facility] [address] [place] [id number] Emmanuelle Yeboah MD [facility] [address] [place] [place] [address] documented as of this encounter Procedures Procedure Name Priority Date/Time Associated Diagnosis Comments RENAL DUPLEX COMPLETE Routine 08/13/2023 8:23 AM EDT Renal artery stenosis documented in this encounter Results * Duplex Study Renal Arteries, Bilat (08/13/2023 8:23 AM EDT) VB Text Report Department: Vascular Surgery Lab Patient: [id number] (KERI BROUSSARD) CPT: 24079 Referring Physician: JASMYNE THOMPSON ?? Phone: Indications: [...] documented in this encounter Visit Diagnoses Diagnosis Renal artery stenosis Atherosclerosis of renal artery documented in this encounter Care Teams Garment Folder Relationship Specialty Start Date End Date Veronica Meek DO [address] [place] [address] PCP - General Family Medicine 07/24/22 documented as of this encounter
--- OUTSIDE RECORDS SUMMARY | 2024-06-14 01:46 | XMS_ITS | Encounter Summary ---
[place] [address] Care Team Providers Care Office Services Assistant Name Role Phone Ayah Albrecht MD Primary Care Provider [phone] Encounter Details Date Type Department Care Team (Late st Contact Info) Description 05/14/2021 Telephone [place] [address] Shireen Fulton PA [facility] [place] [place] [address] Social History Tobacco Use Types Packs/Day Years [...] encounter Miscellaneous Notes * Telephone Encounter - Shireen Fulton PA - 05/14/2021 10:26 AM EDT Telephone call: Patient called following normal cardiac work up and requesting to trial Pletal. TTE reviewed. Patient is currently taking trazodone, which can cause prolonged QTC when taken in combination with Pletal. Reviewed with patient, patient reports she wishes to stop taking trazodone. Reached out to patient's PCP for further guidance regarding management of insomnia and trazodone. Will hold off on Pletal for now. RDUDY Verdugo documented in this encounter Plan of Treatment Upcoming Encounters Date Type Department Care Team (Late st Contact Info) Description 06/29/2024 2:40 PM EDT Office Visit Dermatology at [facility] [address] [place] [address] Emmanuelle Yeboah MD [facility] [place] [address] documented as of this encounter Visit Diagnoses Not on filedocumented in this encounter Care Teams Office Services Assistant Relationship Specialty Start Date End Date Ayah Albrecht MD [address] [facility] [place] [address] PCP - General 05/04/14 07/23/22 documented as of this encounter
--- OUTSIDE RECORDS SUMMARY | 2024-06-14 01:46 | XMS_ITS | Encounter Summary ---
Author Organization [facility] [place] [address] Care Team Providers Care Environmental Aid Name Role Phone Ayah Albrecht MD Primary Care Provider [phone] Reason for Referral * Diagnostic Test (Routine) - Closed Specialty Diagnoses / Procedures Referred By Contac t Referred To Contact Diagnoses PVD (peripheral vascular disease) with claudication Procedures BONITA, legs, multiple levels Shireen Fulton PA [facility] [place] [address] [facility] Vascular Lab [address] [place] [address] Referral ID Status Reason Start Date Expiration Date V isits Requested Visits Authorized [id number] Closed Specialty Service Requested 07/23/2021 07/23/2022 1 1 Encounter Details Date Type Department Care Team (Late st Contact Info) Description 07/23/2021 10:30 AM EDT Office [place] [address] Shireen Fulton PA [facility] [place] [address] PVD (peripheral vascular disease) with [...] Sign Reading Time Taken Comments Blood Pressure 155/63 07/23/2021 10:30 AM EDT Pulse 63 07/23/2021 10:30 AM EDT Temperature - - Respiratory Rate - - Oxygen Saturation - - Inhaled Oxygen Concentration - - Weight 54 kg (119 lb) 07/23/2021 10:30 AM EDT re ported Height 161.9 cm (5' 3.75) 07/23/2021 10:30 AM E DT reported Body Mass Index 20.59 07/23/2021 10:30 AM EDT documented in this encounter Progress Notes * Shireen Fulton PA - 07/23/2021 10:30 AM EDT Vascular Follow-Up Reason for Visit: Keri Broussard is a 70 y.o. female presenting for follow-up PAD. HPI: Keri Broussard is a 70 y.o. female with a PMH of ACS, HTN, carotid artery occlusion, emphysema and PAD with claudication reports that she has persistent BLE pain. Patient reports that she hasgeneralized fatigue and aching of her BLE when she is walking typically after 0.25 miles, she notesher symptoms are worse in her RLE and seem to persist even after resting for several minutes. She also reports aching pain of her bilateral plantar surface of her feet after she is walking for several minutes. She also reports BLE pain when resting in bed at night. Patient does report a hx of fibromyalgia, RLS and spinal stenosis. Denies BLE rest pain, edema, and tissue loss. She admits to chronic intermittent dyspnea related to her emphysema, but denies any new or worsening symptoms. Denies chest pain. Patient reports that she is currently smoking [...] G25.81 ??? Nicotine dependence F17.200 ??? Depression F32.9 ??? Fibromyalgia M79.7 ??? IBS (irritable bowel syndrome) K58.9 ??? Carotid bruit R09.89 ??? PVD (peripheral vascular disease) with claudication I73.9 Medications: Current Outpatient Medications on File Prior to Visit Medication Sig Dispense Refill ??? cilostazoL (Pletal) 100 mg Tablet Take 1 tablet by mouth 2 times daily. 60 tablet 3 ??? calcium carb/magnesium hydrox (MYLANTA ORAL) Take [...] (from the past 24 hour(s)). Studies: BONITA 07/23/21: Findings: Right ?Pressure (mm Hg) ?? BONITA ??Waveform ? Brachial Artery ?161 ? Dorsalis Pedis (Ankle) Artery ?88 ?0.54 ??Monophasic ? Posterior Tibial (Ankle) Artery ??96 ?0.59 ??Hickory-Biphasic ? Left ? Pressure (mm Hg) ?? BONITA ??Waveform ?? Brachial Artery ?164 ? Dorsalis Pedis (Ankle) Artery ?146 ? 0.89 ??Triphasic ?? Posterior Tibial (Ankle) Artery ??150 ? 0.91 ??Triphasic ? Interpretation: RIGHT: Moderate lower extremity arterial occlusive disease. No significant change from previous exam. LEFT: Mild lower extremity arterial occlusive disease. No significant change from previous exam. Assessment/Plan: Keri Broussard is a 70 y.o. female with BLE PAD. Patient has some sytmpoms consistent with claudication, however, it is likely her BLE symptoms are multifactorial. ABIs today are unchanged: R DP 0.54, R PT 0.59, L DP 0.89, and L PT 0.91. Patient's symptoms are starting to limit her daily activities in some ways, such as that she is no longer able to ambulate around town. However, patient is currently undergoing further evaluation with physiotherapy. She has no symptoms of ischemic arterial occlusive disease. Recommend medical management of PAD at this time. Recommend patient continue daily ASA 81 mg daily and statin medication. Recommend tight control of co- morbidities and follow-up with PCP for further evaluation of alternate causes of leg pain. Encourage patient to start daily walking exercise. Strongly recommend patient quit smoking, she is actively trying to cut back. Follow-up in 1 year with ABIs. Instructed to call the clinic with any concerns prior to next ap pointment. Shireen Fulton PA-C documented in this encounter Plan of Treatment Upcoming Encounters Date Type Department Care Team (Late st Contact Info) Description 06/29/2024 2:40 PM EDT Office Visit Dermatology at [facility] [address] [address] Emmanuelle Yeboah MD [facility] [address] [place] [address] documented as of this encounter Results * BONITA, legs, multiple levels (07/24/2022 8:58 AM EDT) VB Text Report Department: Vascular Surgery Lab Patient: [id number] (KERI BROUSSARD) CPT: 55407 Referring Physician: SHARMIN OLIVIER ?? Indications: hx of BL LE claudication, ? peripheral perfusion Diabetes mellitus: No Findings: Right ?Pressure (mm Hg) ?? BONITA ??Waveform ? Brachial Artery ?197 ? Dorsalis Pedis (Ankle) Artery ?110 ? 0.56 ??Biphasic ? Posterior Tibial (Ankle) Artery ??123 ? 0.62 ??Hickory-Biphasic ?? Left ? Pressure (mm Hg) ?? [...] Report VASCUBASE 07/24/2022 8:58 AM EDT Sharmin Olivier MD VASCULAR ORDERABLES Performing Organization Address City/State/[facility] Co de Phone Number VASCUBASE documented in this encounter Visit Diagnoses Diagnosis PVD (peripheral vascular disease) with claudication Peripheral vascular disease, unspecified documented in this encounter Care Teams Environmental Aid Relationship Specialty Start Date End Date Ayah Albrecht MD [address] [facility] [place] [address] PCP - General 05/04/14 07/23/22 documented as of this encounter
--- OUTSIDE RECORDS SUMMARY | 2024-06-14 01:46 | XMS_ITS | Clinical Summary ---
Author Organization [facility] Address [address] [place] [address] Care Team Providers Care Baby Nurse Name Role Phone Davonte Dickson MD Primary Care Provider U navailable Social History Tobacco Use Types Packs/Day Years Used Date Smoking Tobacco: Never Assessed Sex and Gender Information Value Date Recorded Sex Assigned at Not on file Gender Identity Not on file Sexual Orientation Not on file Plan of Treatment Health Maintenance Due Date Last Done Comments Hepatitis C Screen 1950 RSV Immunization ( o r 60+ Years) (1 - 1-dose 60+ series) 2008 Fall Risk Screening 2013 COVID-19 Vaccine ( season) 2023 Care Teams Baby Nurse Relationship Specialty Start Date End Date Davonte Dickson MD PCP - General 07/13/14
--- OUTSIDE RECORDS SUMMARY | 2024-06-14 01:46 | XMS_ITS | Referral Summary ---
Author Organization [facility] Address [address] [place] [address] Care Team Providers Care Wire Drawing Setter Name Role Phone Davonte Dickson MD Primary Care Provider U navailable Social History Tobacco Use Types Packs/Day Years Used Date Smoking Tobacco: Never Assessed Sex and Gender Information Value Date Recorded Sex Assigned at Not on file Gender Identity Not on file Sexual Orientation Not on file Plan of Treatment Not on file Care Teams Wire Drawing Setter Relationship Specialty Start Date End Date Davonte Dickson MD PCP - General 07/13/14
--- OUTSIDE RECORDS SUMMARY | 2024-06-14 01:46 | XMS_ITS | Clinical Summary ---
Author Organization [place] [address] Care Team Providers Care Custodian Name Role Phone Veronica Meek DO Primary Care Provider [phone] Allergies Active Allergy Reactions Criticality Noted Date Comments Omeprazole 05/04/2014 Oxycodone 05/04/2014 Sulfa (Sulfonamide Antibiotics) 05/04/2014 Varenicline Tartrate High 09/25/2020 Other reaction(s): Anxiety/headache/dopines s. Medications Medication Sig Dispensed Refills Start Date End Date Status gabapentin (NEURONTIN) 600 mg tablet Take 600 mg by mouth nightly. 03/11/2014 Active Calcium Carbonate-Vit D3-Min 600 mg calcium- 400 unit Tab Take by mouth daily. Active pantoprazole (PROTONIX) 40 mg tablet Take 1 tablet by mouth daily. 90 tablet 3 05/05/2014 Active aspirin 81 mg EC tablet Take 1 tablet by mouth daily. 30 tablet 3 05/05/[address] (Cymbalta) 20 mg Capsule, Delayed Release(E.C.) Take 20 mg by mouth daily. Active UNABLE TO FIND Med Name: Citrical OTC supplement Active calcium carb/magnesium hydrox (MYLANTA ORAL) Take by mouth as needed. Liquid. Active acetaminophen (Tylenol) 500 mg Tablet As needed 05/25/2018 Active ibuprofen (Advil) 200 mg Tablet Q6H 06/19/2020 Active rosuvastatin (Crestor) 10 mg Tablet Take by mouth. 06/03/2021 Active senna-docusate (Pericolace) 8.6-50 mg Tablet Take by mouth. 12/08/2019 Active melatonin 5 mg Tablet Take by mouth. Active Ventolin HFA 90 mcg/actuation HFA Aerosol Inhaler INHALE ONE TO TWO PUFFS BY MOUTH FOUR TIMES A DAY NEEDED FOR FOR SHORTNESS OF BREATH 04/10/2022 Active Incruse Ellipta 62.5 mcg/actuation Disk with Device Inhale 1 puff into the lungs daily. 06/14/2022 Active varenicline (CHANTIX) 0.5 mg (11)- 1 mg (42) Tablets, Dose Pack TAKE PER PACKAGE DIRECTIONS 05/29/2022 Active ketoconazole (NIZORAL) 2 % ShampooIndications: Seborrheic dermatitis Shampoo and let it sit for 5-10 minutes, then rinse. Recommend applying 2 to 3 times weekly. 120 mL 5 03/23/2024 Active clobetasoL (Temovate) 0.05 % OintmentIndications :Vulvar atrophy Apply a thin amount twice weekly for 3 months as demonstrated. Then three times a week for maintenance. 30 g 3 03/23/2024 Active estradioL (ESTRACE) 0.01 % (0.1 mg/gram) CreamIndications:Milagros branch sclerosus Apply a pea sized amount of cream twice a week for maintenance. 42.5 g 12 03/23/2024 Active Active Problems Problem Noted Date Diagnosed Date Sacroiliac joint dysfunction of right side 07/16 PVD (peripheral vascular disease) with claudicat ion 04/24/2021 Pulmonary emphysema 06/12/2016 Non-cardiac chest pain 05/01/2015 Gastroesophageal reflux disease 08/21/2014 Alcohol dependence 08/21/2014 Chest tightness or pressure 05/04/2014 Osteoporosis 05/04/2014 RLS (restless legs syndrome) 05/04/2014 Nicotine dependence 05/04/2014 Depression 05/04/2014 Fibromyalgia 05/04/2014 IBS (irritable bowel syndrome) 05/04/2014 Spinal stenosis of lumbar re gion with neurogenic claudication 11/13/2011 Abnormal weight loss 11/13/2011 Anxiety 11/13/2011 Muscle pain 11/13/2011 Resolved Problems Problem Noted Date Diagnosed Date Resolved Date Carotid bruit 05/04/2014 07/16/2023 Encounters Date Type Department Care Team Description 03/23/2024 10:20 AM EDT Office Visit Dermatology at [facility] [address] [place] [address] Emmanuelle Yeboah MD Lichen sclerosus; Vulvar atrophy; Seborrheic dermatitis; Multiple melanocytic nevi; Seborrheic keratoses; Lentigines; Falcon angioma; Telangiectasias 03/23/2024 Travel 03/16/2024 Travel from Last 3 Months Family History Medical History Relation Comments Coronary Artery Disease Brother 2 Coronary Artery Disease Mother Coronary Artery Disease Sister 2 Relation Status Comments Brother 1 Alive Brother 2 Father Mother Sister 1 Alive Sister 2 Social History Tobacco Use Types Packs/Day Years [...] on file Sexual Orientation Not on file Last Filed Vital Signs Vital Sign Reading Time Taken Comments Blood Pressure 151/119 08/13/2023 9:27 AM EDT Pulse 58 08/13/2023 9:27 AM EDT Temperature 36.8 ??C (98.2 ??F) 05/05/2014 7:00 AM ED T Respiratory Rate 16 05/05/2014 7:00 AM EDT Oxygen Saturation 97% 08/13/2023 9:27 AM EDT Inhaled Oxygen Concentration - - Weight 64.4 kg (142 lb) 08/13/2023 9:27 AM EDT Height 162.6 cm (5' 4) 08/13/2023 9:27 AM EDT Body Mass Index 24.37 08/13/2023 9:27 AM EDT Plan of Treatment Upcoming Encounters Date Type Department Care Team (Late st Contact Info) Description 06/29/2024 2:40 PM EDT Office Visit Dermatology at [address] [place] [address] Emmanuelle Yeboah MD [facility] [place] [address] Health Maintenance Due Date Last Done Comments CT Colonography 1948 Colonoscopy 1948 Colorectal Cancer Screening 1948 FIT DNA 1948 FIT 1948 Sigmoidoscopy (10 year) with FIT yearly 1948 Sigmoidoscopy 1948 Pneumoccocal Vaccine: 65+ (1 of 2 - PCV) 1954 Hepatitis C Screening 1966 Tdap adult 1967 Tetanus vaccine 1967 Zoster vaccine (1 of 2) 1998 Advance Directive 2003 Bone Density Scan 2013 Covid-19 Vaccine (1 - 2022- season) 2023 Influenza (Flu) vaccine (1 o f 1 - Influenza standard series) 07/10/2024 Lipid Screening Discontinued 05/05/2014 Procedures Procedure Name Priority Date/Time Associated Diagnosis Comments LIPID PANEL (REFLEX DIRECT LDL) Routine 05/05/2014 4:01 AM EDT from Last 3 Months or Most Recently Relevant to Health Maintenance Results * Lipid panel (fasting) (05/05/2014 4:01 AM EDT) Cholesterol, Total 153 <=199 mg/dL CERNER MILLENNIUM Comment: Recommendations of the NCEP Adult Treatment Panel for the following risk cutoff thresholds for the [place] population: Desirable: <200 mg/dL Borderline High: 200-239 mg/dL High: > or = 240 mg/dL Triglyceride 90 <=149 mg/dL CERNER MILLENNIUM Comment: Reference Range: Normal triglycerides: ??<150 mg/dL Borderline high: ??150-199 mg/dL High: ??200-499 mg/dL Very high: ??>yl=783 mg/dL VIDYA 2001; 285(19):7313-3998 HDL Cholesterol 83 >=40 mg/dL CER NER MILLENNIUM Comment: Reference range: ??Low HDL: ?? < 40 mg/dL ??Normal: ?40-60 mg/dL ??Desirable: > 60 mg/dL VIDYA 2001; 285(19):3636-5449 LDL Cholesterol 52 <=99 mg/dL CER NER MILLENNIUM Comment: Reference range: ?? Optimal: ?<100 mg/dL ?? Near Optimal/Above Optimal: ?? 100-129 mg/dL ?? Borderline high: ?130-159 mg/dL ?? High: ? 160-189 mg/dL ?? Very high: ?>pm=511 mg/dL VIDYA 2001: 285(19):4444-0309 Cholesterol/HDL Ratio 1.8 ratio CERNER MILLENNIUM Comment: A Cholesterol to HDL ratio below 4:1 is desirable. ??Studies suggest that increased CAD risk occurs at ratios above 5 for females and above 6 for men. ? [place] Heart Association ??(http://www.americanheart.org) ? Fiordaliza Int Med, 1994; 121:641 ? AM J Med, 1998; 105(1A):48S Blood specimen (specimen) 05/05/2014 4:01 AM EDT 05/05/2014 4:22 AM EDT Narrative Resulting Agency Comment Spec In Lab Timmy Ly MD CHEMISTRY ORDERABLES CERNER MILLENNIUM from Last 3 Months or Most Recently Relevant to Health Maintenance Advance Directives Documents on File Type Date Recorded Patient Billing And Quality Technician Expl anation Personal Billing And Quality Technician 07/17/2023 10:29 AM henny hernandez Personal Billing And Quality Technician 07/17/2023 10:28 AM skyla tay * Full Code (Latest Code Status on File) Date Activated Date Inactivated Comments 05/04/2014 8:39 PM 05/05/2014 2:21 PM Question Answer Comments Does patient have decision m aking capacity? Yes, order is based on Patient wishes. Care Teams Custodian Relationship Specialty Start Date End Date Veronica Meek DO [address] [facility] [place] [address] PCP - General Family Medicine 07/24/22
--- OUTSIDE RECORDS SUMMARY | 2024-06-14 01:46 | XMS_ITS | Encounter Summary ---
Author Organization [facility] Address [facility] [place] [address] Care Team Providers Care Spray Unit Feeder Name Role Phone Ayah Albrecht MD Primary Care Provider [phone] Reason for Visit * Reason Comments Skin Cancer Examination * Consultation (Routine) - Closed Specialty Diagnoses / Procedures Referred By Contjose francisco t Referred To Contact Dermatology Diagnoses Encounter for screening for malignant neoplasm of skin Ayah Albrecht MD [address] [place] [address] [facility] [address] [place] [address] Referral ID Status Reason Start Date Expiration Date V isits Requested Visits Authorized [id number] Closed Consult, Test & Treat Connection Center PCP Updated and/or Approved 09/25/2020 09/25/2021 6 6 Encounter Details Date Type Department Care Team (Late st Contact Info) Description 10/11/2020 10:15 AM EST Office Visit Dermatology at [facility] [address] [place] [address] Sharri Mata MD [facility] [address] [place] [address] SK (seborrheic keratosis); Benign nevus of skin; Falcon angioma; Neoplasm of uncertain behavior of skin Social History Tobacco Use Types Packs/Day Years [...] this encounter Patient Instructions * Patient Instructions* Caitlin Nieves CMA - 10/11/2020 10:15 AM EST Shave Biopsy Wound Care Instructions Your treatment today: You have had a shave biopsy of your skin, which is a removal of tissue for examination under a microscope. This wound will heal without stitches. Allow 3-6 weeks for the wound to heal fully. If bleeding should occur, hold firm, constant pressure against the wound for 15- 20 minutes (with nopeeking). If bleeding continues, call the clinic or go to your local emergency department. Please allow 1-2 weeks for the biopsy results to return. Based on the results, your physician or nurse will contact you by phone or letter; follow-up will be discussed at that time. If in 2 weeks, you have not heard from us, please feel free to call to request your biopsy results. Wound care instructions: Keep the bandage placed over the wound dry and intact for 24 hours. Afterwards, perform the following wound care daily: ?? Wash your hands. ?? Remove the bandage, clean the area with soap and water, and gently pat dry. ?? Apply a small amount of Vaseline and cover with a Band-Aid. ?? Repeat daily until the wound is healed fully. A small amount of yellow drainage is part of the normal healing process. The area might appear as asmall depression with redness around the edge of the wound; this is normal. Please contact the clinic if you notice any of the following signs of infection: increased pain, tenderness, drainage, or redness that becomes hot or hard around the wound. Contact information: On weekdays (8am to 5pm), please call the clinic at [phone]. After 5pm, and on weekends and holidays, please call the hospital at [phone] and ask for the Motor Equipment Lieutenant Injection Molding Machine Tender. documented in this encounter Progress Notes * Sharri Mata MD - 10/11/2020 10:15 AM EST Images from the original note were not included. DERMATOLOGY NEW PATIENT CLINIC NOTE DATE OF SERVICE: 10/11/2020 Floridalma Ibarra : 1950 PROVIDER: Sharri Mata MD REFERRED BY: Ayah Albrecht MD For diagnosis and management of: skin cancer screening PATIENT PREFERENCES: -prefers to be called: Floridalma -ok to communicate detailed result information by: Mail?: yes MyDH?: no Voicemail?: yes and what #: cell -special considerations: -ok to discuss details of diagnosis and treatment with: [email or web address]/3/2020 Chief Complaint Patient presents with ??? Skin Cancer Examination HPI Floridalma Ibarra is a 70 y.o. year old female. - Patient presents for full body skin exam due to concerns about potential for skin cancer. Has patient had any sunburns in past? Yes but not blistering Does patient perform self skin exams? no Does patient wear sunscreen? When swimming Does patient wear a hat with sun exposure? no Dresses purposefully to avoid sun exposure? Yes long sleeves Any new or changing spots on scalp, neck, back, lips, trunk, nails or genital areas? no Reports the following: - raised lesion located on left tear trough present for 5 years and becoming more bothersome Changein size? Slightly larger Has any medication or intervention been tried? Rubs area frequently and applied eye cream Associated with: itch/bleeding/pain? Yes itch Has pt had anything like this before? no Other info: Review of Systems: Feels well, no fatigue, no weight loss, no other skin concerns Sunscreen Use?: when swimming Skin Hx: Skin Cancer: none Atypical nevi: none Actinic keratoses?: none Benign mole removed from back, per patient FHX: -skin cancer?: yes What type?: NMSC Who?:sister -eczema?: no -psoriasis?: yes, brother -acne?: no -rosacea?:no SH: ETOH?: no TOB?: yes Occupation?: retired Allergies Allergen Reactions ??? Omeprazole ??? Oxycodone ??? Sulfa (Sulfonamide Antibiotics) EXAM General: AAOx3 Well-nourished adult in no apparent distress Skin:Patient was advised to fully undress and was given a medical gown. Patient was advised to remove underwear for a complete skin examination that includes buttocks and genitals. Option was given to wear their underwear, with the warning that clothed areas would not be examined and that this is not the preferred complete skin examination. Patient also advised that nail yi, makeup and jewelry/watches all interfere with a thorough examination. Patient chose: A total body skin exam was performed. This includes examination of the skin of the face, ears, neck, chest, axillae, left and right upper and lower extremities, hands and feet, abdomen, buttocks and external genitals. Lymph nodes were not examined unless commented upon in exam below DIAGNOSIS/SKIN FINDINGS/ASSESSMENT/PLAN: # Inflamed seborrheic keratosis vs Nevus with Inflamed Seborrheic Keratosis - 4 mm brown barely raised papule with brown keratotic center on left tear trough - Likely benign but irritating and bothersome to patient - Reviewed treatment options including shave removal, snip removal, watchful waiting - [place] decision to proceed with skin shave removal today Procedure: Shave removal of lesion. Location: as above Time of procedure: 10:40 am Discussed indications for procedure and expectations including risks and benefits. Verbal consent obtained. Skin prepped with alcohol. Local anesthesia with 1% xylocaine, 1/100,000 epinephrine. The lesion was removed by shave technique to the level of the dermis and submitted to Pathology. Hemostasis obtained (AlCl and/or electrocautery). There were no complications; patient tolerated the procedure well. Wound dressed. Post-procedure expectations, wound care and activity restrictions reviewed. - Follow-up based on pathology results. Will send patient letter with results. # Falcon Angiomas - trunk and extremities - Discussed benign nature of lesions and provided reassurance. No treatment necessary at this time. # Seborrheic Keratoses - trunk and extremities - Explained that these are hereditary and adult-acquired. Reassured patient of benign nature. No treatment necessary. Photo(s) were taken and charted with patient consent: FOLLOW UP WHEN: pending pathology, otherwise 2 years FOR WHAT: FSE LEVEL: 3 I am documenting this encounter acting as the scribe for and in the presence of Dr.Roberta Adolfo Nieves, LUCAS I performed the above scribed service and agree with the accuracy of the documentation in this encounter. Sharri Mata MD Section of Dermatology [facility] Floridalma Ibarra 10/11/2020 [id number] documented in this encounter Plan of Treatment Upcoming Encounters Date Type Department Care Team (Late st Contact Info) Description 06/29/2024 2:40 PM EDT Office Visit Dermatology at [facility] [address] [place] [address] Emmanuelle Yeboah MD [facility] [place] [address] documented as of this encounter Procedures Procedure Name Priority Date/Time Associated Diagnosis Comments SPECIMEN TO PATHOLOGY Routine 10/11/2020 10:56 AM EST Neoplasm of uncertain behavior of skin SURGICAL PATHOLOGY REPORT Routine 10/11/2020 10:55 AM EST documented in this encounter Results * Specimen to Pathology (10/11/2020 10:56 AM EST) AP Specimen 10/11/2020 10:5 6 AM EST 10/11/2020 1:35 PM EST Narrative [facility] - 10/11/2020 1:35 PM EST Specimen requisition ordered. ??Separate Pathology report to follow Resulting Agency Comment Spec In Lab Sharri Mata MD PATHOLOGY/CYTOLOGY O RDERABLES [facility] [place] [address] * Surgical Pathology Report (10/11/2020 10:55 AM EST) Final Diagnosis [id number] ? Location: [facility] The signing pathologist has (i) examined the relevant preparation(s) for the specimen(s) and (ii) rendered or confirmed the diagnosis(es). . ?Surgical Pathology DIAGNOSIS Left tear trough, skin shave removal: - ??Seborrheic keratosis, pigmented Electronically signed by: ??Cora BENNETT, Digna Verified: ??10/16/2020 ?Dermatopathol ogist Performed at: ??-[facility] Dept. of Pathology, [place], [place] SPECIMEN(S) SUBMITTED A - left tear trough, skin shave removal (1) CLINICAL INFORMATION 4 mm brown fairly raised papule with brown keratotic center on left tear troughs; inflamed seborrheic keratosis vs nevus with inflamed seborrheic keratosis SPECIMEN PROCESSING A - Labeled/Fixativ e: Patient demographics, formalin. Quantity/Size: ??Single, 0.4 x 0.3 x 0.1 cm. Tissue Description: Shave of a kearns skin papule. Sections/Proces sing: Inked and submitted intact ??in 1 cassette labeled A1. ??gerardo 10/16/2020 10:53 AM EST [facility] SPECIMEN FROM SKIN / Unknown 10/11/2020 10:55 AM EST 10/11/2020 10:55 AM EST Sharri Mata MD PATHOLOGY/CYTOLOGY O RDERABLES [facility] [place] [address] documented in this encounter Visit Diagnoses Diagnosis SK (seborrheic keratosis) Other seborrheic keratosis Benign nevus of skin Benign neoplasm of skin, site unspecified Falcon angioma Nevus, non-neoplastic Neoplasm of uncertain behavior of skin documented in this encounter Care Teams Spray Unit Feeder Relationship Specialty Start Date End Date Ayah Albrecht MD [address] [place] [address] PCP - General 05/04/14 07/23/22 documented as of this encounter
--- OUTSIDE RECORDS SUMMARY | 2024-06-14 01:46 | XMS_ITS | Encounter Summary ---
Author Organization [facility] Address [address] [place] [address] Care Team Providers Care Mobile Game Engineer Name Role Phone Davonte Dickson MD Primary Care Provider U carolina Encounter Details Date Type Department Care Team (Late st Contact Info) Description 04/15/2022 Lab Requisition [facility] Pathology & Laboratory Medicine - [facility] [address] [place], [place] [address] Outr Resulting Lab, Provider Social History Tobacco [...] Procedure Name Priority Date/Time Associated Diagnosis Comments LYME AB Routine 04/15/2022 10:50 EDT documented in this encounter Results * LYME AB (04/15/2022 10:50 EDT) Lyme Ab Negative Negative 04/16/2022 9:56 EDT [facility] Blood VENOUS BLOOD / Unknown 04/15/2022 10:50 EDT 04/15/2022 21:37 EDT Provider Outr Resulting Lab IMMUNOLOGY A ND SEROLOGY ORDERABLES [facility] [address] [place] [address] documented in this encounter Visit Diagnoses Not on filedocumented in this encounter Care Teams Mobile Game Engineer Relationship Specialty Start Date End Date Davonte Dickson MD PCP - General 07/13/14 documented as of this encounter
--- OUTSIDE RECORDS SUMMARY | 2024-06-14 01:46 | XMS_ITS | Encounter Summary ---
Author Organization Replaced By [facility] [place] [address] Care Team Providers Care Supervisor Sterile Processing Name Role Phone Ayah Albrecht MD Primary Care Provider [phone] Reason for Visit * Consultation (Routine) - Closed Specialty Diagnoses / Procedures Referred By Jarret t Referred To Contact Vascular Surgery Diagnoses Peripheral vascular disease, unspecified Ayah Albrecht MD [address] [place] [address] [address] [facility] Vascular Surg [address] [place] [address] Referral ID Status Reason Start Date Expiration Date V isits Requested Visits Authorized [id number] Closed Consult, Test & Treat Connection Center PCP Updated and/or Approved 04/15/2021 04/15/2022 6 6 Encounter Details Date Type Department Care Team (Late st Contact Info) Description 04/24/2021 11:00 AM EDT Tech Visit [place] [address] Mary Meehan Pain of lower extremity, unspecified laterality Social [...] as of this encounter Miscellaneous Notes * Addendum Note - Mary Meehan - 04/24/2021 11:00 AM EDTAddended by: MARY MEEHAN on: 04/24/2021 11:18 AM Modules accepted: Orders documented in this encounter Plan of Treatment Upcoming Encounters Date Type Department Care Team (Late st Contact Info) Description 06/29/2024 2:40 PM EDT Office Visit Dermatology at [facility] [address] [place] [address] Emmanuelle Yeboah MD [facility] [address] documented as of this encounter Procedures Procedure Name Priority Date/Time Associated Diagnosis Comments BONITA, LEGS, MULTIPLE LEVELS Routine 04/24/2021 10:50 AM EDT Pain of lower extremity, unspecified laterality documented in this encounter Results * BONITA, legs, multiple levels (04/24/2021 10:50 AM EDT) VB Text Report Department: Vascular Surgery Lab Patient: [id number] (KERI BROUSSARD) CPT: 55107 ICD10: M79.606;I77.1;I7 0.213 Referring Physician: JESUS KAM APRN ?? Indications: bilateral lower extremity claudication (right [...] 04/24/2021 10:5 0 AM EDT Jesus Kam 1ST GRADE TEACHER VASCULAR ORDERABLE S VASCUBASE documented in this encounter Visit Diagnoses Diagnosis Pain of lower extremity, unspecified laterality documented in this encounter Care Teams Supervisor Sterile Processing Relationship Specialty Start Date End Date Ayah Albrecht MD [address] [place] [address] PCP - General 05/04/14 07/23/22 documented as of this encounter
--- OUTSIDE RECORDS SUMMARY | 2024-06-14 01:46 | XMS_ITS | Encounter Summary ---
Author Organization [facility] Address [address] [place] [address] Care Team Providers Care Manager Technical Training Name Role Phone Davonte Dickson MD Primary Care Provider U carolina Encounter Details Date Type Department Care Team (Late st Contact Info) Description 11/22/2021 Lab Requisition [facility] Pathology & Laboratory Medicine - [facility] [address] [place] [address] Liz Johnson, DO [address] [place] [address] Unspecified abdominal pain; Change in bowel habit Social History Tobacco Use Types Packs/Day Years Used Date Smoking Tobacco: Never Assessed Sex and Gender Information Value Date Recorded Sex Assigned at Not on file Gender Identity Not on file Sexual Orientation Not on file documented as of this encounter Plan of Treatment Not on file documented as of this encounter Procedures Procedure Name Priority Date/Time Associated Diagnosis Comments SURGICAL PATHOLOGY Today 11/22/2021 7:53 EST Unspecified abdominal pain Change in bowel habit documented in this encounter Results * SURGICAL PATHOLOGY (11/22/2021 7:53 EST) Note to Patient The following pathology results have been interpreted by your pathologist and may be available to you before your health provider has had the opportunity to review them. Please allow time for your provider to receive these results and explore management options, if applicable. 11/26/2021 17:43 EST [facility] Final Diagnosis A. COLON, CECUM, BIOPSY: - Lymphocytic colitis. B. COLON, 80 CM, BIOPSY: - Lymphocytic colitis. C. COLON, 60 CM, BIOPSY: - Lymphocytic colitis. D. COLON, 30 CM, BIOPSY: - Lymphocytic colitis. E. RECTUM, BIOPSY: - Lymphocytic colitis. 11/26/2021 17:43 [facility] Attestation By the signature below, the attending physician certifies that they have 1) personally conducted a gross and/or microscopic examination of the described specimen(s), and/or personally interpreted the results of laboratory testing of the described specimen(s), and 2) personally rendered or confirmed the above diagnosis. 11/26/2021 17:43 [facility] at 1743 Clinical History Screening & changes in bowel habits; Dx: I hernia 11/26/2021 17:43 [facility] Gross Description A. Received in formalin labelled with proper patient identification (initials V, M) and 1. Cecum Bx is a kearns tissue (0.4 x 0.3 x 0.2 cm). Entirely submitted in A1. B. Received in formalin labelled with proper patient identification (initials V, M) and 2. 80 cm Bx is a kearns tissue (0.6 x 0.5 x 0.1 cm). Entirely submitted in B1. C. Received in formalin labelled with proper patient identification (initials V, M) and 3. 60 cm Bx is a kearns-brown tissue (0.4 x 0.3 x 0.2 cm). Entirely submitted in C1. D. Received in formalin labelled with proper patient identification (initials V, M) and 4. 30 cm Bx is a kearns-brown tissue (0.6 x 0.5 x 0.1 cm). Entirely submitted in D1. E. Received in formalin labelled with proper patient identification (initials V, M) and 5. Rectal Bx is a kearns tissue (0.4 x 0.3 x 0.2 cm). Entirely submitted in E1. RUDDY CARD(ASCP) 11/25/2021 8:13 11/26/2021 17:43 [facility] Performing Lab [facility] 11/26/2021 17:43 [facility] Scanned Images 11/26/2021 17:43 [facility] Tissue SPECIMEN FROM RECTUM / Unknown 11/22/2021 7:53 EST 11/22/2021 15:53 EST Tissue specimen (specimen) COLON STRUCTURE / Unknown 11/22/2021 7:53 EST 11/22/2021 15:53 EST Tissue specimen (specimen) COLON STRUCTURE / Unknown 11/22/2021 7:53 EST 11/22/2021 15:53 EST Tissue specimen (specimen) COLON STRUCTURE / Unknown 11/22/2021 7:53 EST 11/22/2021 15:53 EST Tissue specimen (specimen) SPECIMEN FROM RECTUM / Unknown 11/22/2021 7:53 EST 11/22/2021 15:53 EST Liz Johnson DO PATHOLOGY ORDERABLES [facility] [address] [place] [address] documented in this encounter Visit Diagnoses Diagnosis Unspecified abdominal pain Change in bowel habit documented in this encounter Care Teams Manager Technical Training Relationship Specialty Start Date End Date Davonte Dickson MD PCP - General 07/13/14 documented as of this encounter
--- OUTSIDE RECORDS SUMMARY | 2024-06-14 01:46 | XMS_ITS | Encounter Summary ---
Author Organization [facility] [place] [address] Care Team Providers Care School Psychometrist Name Role Phone Veronica Meek DO Primary Care Provider [phone] Encounter Details Date Type Department Care Team (Latest Contact Info) Description 03/16/2024 Travel Social History Tobacco Use Types Packs/Day [...] [facility] [address] [place] [address] Emmanuelle Yeboah MD [facility] [place] [address] documented as of this encounter Visit Diagnoses Not on filedocumented in this encounter Care Teams School Psychometrist Relationship Specialty Start Date End Date Veronica Meek DO [address] [place] [address] PCP - General Family Medicine 07/24/22 documented as of this encounter
--- OUTSIDE RECORDS SUMMARY | 2024-06-14 01:46 | XMS_ITS | Encounter Summary ---
[place] [address] Care Team Providers Care Patient Representative Name Role Phone OscarVeronica ventura Primary Care Provider [phone] Encounter Details Date Type Department Care Team (Late st Contact Info) Description 08/18/2023 Telephone [place] [address] Dustin Walter RN Social History Tobacco Use [...] Telephone Encounter - Dustin Walter RN - 08/18/2023 11:06 AM EDT TC to patient to follow up on previous conversation regarding renal artery stenosis and stenting after receiving a response from Dr. Bates. Shared with the patient that quitting smoking is more to reduce the risk of disease, and that given that the patient is only on 2 blood pressure medications that is considered low dose. Patient stated that she will work on smoking cessation, and was appreciative of the phone call. documented in this encounter Plan of Treatment Upcoming Encounters Date Type Department Care Team (Late st Contact Info) Description 06/29/2024 2:40 PM EDT Office Visit Dermatology at [facility] [address] [place] [address] Emmanuelle Yeboah MD [facility] [address] [place] [address] documented as of this encounter Visit Diagnoses Not on filedocumented in this encounter Care Teams Patient Representative Relationship Specialty Start Date End Date Veronica Meek DO [address] [place] [address] PCP - General Family Medicine 07/24/22 documented as of this encounter
--- OUTSIDE RECORDS SUMMARY | 2024-06-14 01:46 | XMS_ITS | Encounter Summary ---
[place] [address] Care Team Providers Care Deliverer Merchandise Name Role Phone Veronica Meek Primary Care Provider [phone] Encounter Details Date Type Department Care Team (Late st Contact Info) Description 07/10/2023 2:30 PM EDT Tech [place] [phone] Jocelyn Padron PVD (peripheral vascular disease) with claudication Social [...] Dermatology at [facility] [address] [place] [address] Emmanuelle Yeboah MD [facility] [address] [place] [place] [address] documented as of this encounter Procedures Procedure Name Priority Date/Time Associated Diagnosis Comments BONITA, LEGS, MULTIPLE LEVELS Routine 07/10/2023 2:22 PM EDT PVD (peripheral vascular disease) with claudication documented in this encounter Results * BONITA, legs, multiple levels (07/10/2023 2:22 PM EDT) Pathologist [facility] VB Text Report Department: Vascular Surgery Lab Patient: [id number] (KERI BROUSSARD) CPT: 40134 Referring Physician: JESUS KAM APRN ?? Indications: Claudication ? Perfusion Diabetes mellitus: No Findings: Right ?Pressure (mm Hg) ?? BONITA ??Waveform ? Brachial Artery ?189 ? Dorsalis Pedis (Ankle) Artery ?122 ? 0.65 ??[place]-Biphasic ?? Posterior Tibial (Ankle) Artery ??123 ? [...] VASCUBASE 07/10/2023 2:22 PM EDT Jesus Kam APRN VASCULAR ORDERABLE S VASCUBASE documented in this encounter Visit Diagnoses Diagnosis PVD (peripheral vascular disease) with claudication Peripheral vascular disease, unspecified documented in this encounter Care Teams Deliverer Merchandise Relationship Specialty Start Date End Date Veronica Meek DO [address] [place] [address] PCP - General Family Medicine 07/24/22 documented as of this encounter
--- OUTSIDE RECORDS SUMMARY | 2024-06-14 01:46 | XMS_ITS | Encounter Summary ---
[place] [address] Care Team Providers Care Warehouse Shipping Associate Name Role Phone Raphael Albrecht MD Primary Care Provider [phone] Encounter Details Date Type Department Care Team (Latest Contact Info) Description 08/31/2014 10:00 AM EDT Procedure [place] [id number] CLINIC, Veronica Valencia, RN Chest pain (Primary Dx) Discharge Disposition: Home Social History Tobacco Use Types Packs/Day Years Used Date Smoking Tobacco: Every Day Cigarettes 0.5 50 Alcohol Use Standard Drinks/Week Comments Yes 1.7 (1 standard drink = 0.6 oz p ure alcohol) Sex and Gender Information Value Date Recorded Sex Assigned at Not on file Gender Identity Not on file Sexual Orientation Not on file documented as of this encounter Progress Notes * Rigoberto Ferguson MD - 09/08/2014 2:05 PM EDT ESOPHAGEAL MANOMETRY Floridalma Ibarra Female, 64 yrs, 1950 PCP: RAPHAEL ALBRECHT ARMATURE INSPECTOR: NONE STUDY DATE: 08/31/14 INDICATION Chest pain. METHODS Stationary esophageal manometry was performed with the Taaz esophageal motility system utilizing the MemberConnection software with a 4-channel solid-state motility probe. The transducers are spaced 5 cm apart, and the distal transducer is circumferential, while the proximal three transducers are placed radially above it. Station pull-through technique is utilized to define the lower esophageal sphincter, whose resting tone is determined by the circumferential transducer. Wet swallows are performed in the body of the esophagus with the distal transducer placed 3 and 8 cm above the lower esophageal sphincter zone. The upper esophageal sphincter zone is discerned by station pull-through technique and measured using the circumferential transducer. LES (lower esophageal sphincter) Lower Border: 46 cm Upper Border: 43 cm Mid-Inspiratory Resting Pressure: 12.6 mmHg using the distal circumferential transducer (normal=13.5-34.5 mmHg). Water Swallows On 5 of 5 swallows the LES relaxed appropriately. Mean residual LES resting pressure was 2 mmHg (normal less than or equal to 8 mmHg). BODY OF ESOPHAGUS Water Swallows: 10 Peristaltic: 10 Not Transmitted: 0 Simultaneous: 0 Rapidly Propagated: 0 Mean Amplitude of Contraction At 3 cm above the mid portion of the LES: 84 mmHg. (normal = 30 mmHg and above) At 8 cm above the mid portion the LES: 67 mmHg. (normal = 30 mmHg and above) No swallow was characterized by high-amplitude contractions. UES (upper esophageal sphincter) Identified at 18.5 cm and extended to 16 cm. UES resting pressure 24 mmHg (normal=30-150 mmHg); relaxation complete. IMPRESSION 1. LES resting pressure just below normal limits. 2. Normal LES relaxation. 3. UES resting pressure below normal limits. 4. Normal UES relaxation. 5. Normal motility in the body of the esophagus. Rigoberto Ferguson, PhD, MD buffing wheel presser, [facility] [employer] Section of Gastroenterology and Hepatology [facility] [place] [address] V: [phone] F: [phone] [facility]/danial CC/EC: PCP - fax copy 09/06/14 Enclosure: Tracing Anish Meraz DO - fax copy 09/06/14 Enclosure: Tracing * Veronica Bryan RN - 08/31/2014 10:22 AM EDT Esophageal manometry performed without difficulty and Was well tolerated. documented in this encounter Plan of Treatment Upcoming Encounters Date Type Department Care Team (Late st Contact Info) Description 06/29/2024 2:40 PM EDT Office Visit Dermatology at [facility] [address] [place] [address] Emmanuelle Yeboah MD [facility] [address] [place] [address] documented as of this encounter Visit Diagnoses Diagnosis Chest pain- Primary Chest pain, unspecified documented in this encounter Care Teams Warehouse Shipping Associate Relationship Specialty Start Date End Date Raphael Albrecht MD [address] [facility] [place] [address] PCP - General 05/04/14 07/23/22 documented as of this encounter
--- OUTSIDE RECORDS SUMMARY | 2024-06-14 01:47 | XMS_ITS | Encounter Summary ---
Author Organization [facility] [place] [address] Care Team Providers Care Quarry Plug And Feather Driller Name Role Phone Davonte Dickson MD Primary Care Provider + Encounter Details Date Type Department Care Team (Late st Contact Info) Description 05/03/2014 Telephone Cardiology at [address] [phone] Andry Fernandez MD [facility] [address] Social History Tobacco Use Types Packs/Day Years Used Date Smoking Tobacco: Never Assessed Sex and Gender Information Value Date Recorded Sex Assigned at Not on file Gender Identity Not on file Sexual Orientation Not on file documented as of this encounter Miscellaneous Notes * Telephone Encounter - Andry Fernandez - 05/03/2014 3:32 PM EDT I spoke to Dr. Garcia in the [facility] about this 63 yo woman with history of CLBP and angina. She is p/w intermittent CP's. Nitro SL more commmonly used at home. Thallium scan from April shows EF 49% with mild Ezequiel-Septal HK, scarring in Ezequiel-Septum with no e/o stress induced ischemia Dr. Tan with cardiology had apprently wanted to pursue catheterization with this patient (in spite of the negative stress test) given her continued symptoms. ECG no ischemia Troponin normal Labs otherwise normal. Plan is to admit her to [facility] now for cycling of enzymes, heparin gtt and ASA and bring her to [facility] as soon as we have more discharges / bed availability. I also spoke with the body shop manager partner of Dr. Greenberg at [facility] to appraise him of the situation. He will call back with more information, or if there is a need to expedite the transferhere. documented in this encounter Plan of Treatment Upcoming Encounters Date Type Department Care Team (Late st Contact Info) Description 06/29/2024 2:40 PM EDT Office Visit Dermatology at [facility] [address] [place] [address] Emmanuelle Yeboah MD [facility] [address] [place] [address] documented as of this encounter Visit Diagnoses Not on filedocumented in this encounter Care Teams Quarry Plug And Feather Driller Relationship Specialty Start Date End Date Davonte Dickson MD [address] [place] [address] PCP - General 10/01/10 05/03/14 documented as of this encounter
--- OUTSIDE RECORDS SUMMARY | 2024-06-14 01:47 | XMS_ITS | Encounter Summary ---
[facility] [place] [address] Care Team Providers Care Filler Picker Name Role Phone Ayah Albrecht MD Primary Care Provider [phone] Encounter Details Date Type Department Care Team (Late st Contact Info) Description 05/03/2014 Orders Only Cardiology at [address] [phone] Russell Whitman MD [facility] [address] Social History Tobacco Use Types Packs/Day Years [...] PM EDT Office Visit Dermatology at [facility] [address] [place] [address] Emmanuelle Yeboah MD [facility] [place] [address] documented as of this encounter Procedures Procedure Name Priority Date/Time Associated Diagnosis Comments FILM LIBRARY STORAGE ONLY DX CHEST Routine 05/03/2014 7:33 AM EDT documented in this encounter Results * Film Library- Storage only DX Chest (05/03/2014 7:33 AM EDT) Anatomical Region Laterality Modality Other 05/03/2014 7:33 AM EDT Narrative 05/04/2014 7:38 AM EDT This is a Non-reportable exam Procedure Note 05/04/2014 This is a Non-reportable exam Russell Whitman MD [facility] [place]M LIBRARY ORD ERABLES documented in this encounter Visit Diagnoses Not on filedocumented in this encounter Care Teams Filler Picker Relationship Specialty Start Date End Date Ayah Albrecht MD [address] [facility] [place] [address] PCP - General 05/04/14 07/23/22 documented as of this encounter
--- OUTSIDE RECORDS SUMMARY | 2024-06-14 01:47 | XMS_ITS | Encounter Summary ---
[place] [address] Care Team Providers Care Adjuster Electrical Contacts Name Role Phone Raphael Dixon MD Primary Care Provider [phone] Encounter Details Date Type Department Care Team (Late st Contact Info) Description 05/04/2014 2:00 PM EDT - 05/04/2014 3:00 PM EDT Surgery Medical Billing And [place] [address] Erik Cho MD [facility] [place] [address] CARDIAC CATHETERIZATION Social History Tobacco Use Types Packs/Day Years Used Date Smoking Tobacco: Every Day Cigarettes 0.5 50 Tobacco Cessation:Ready to Q uit: No Alcohol Use Standard Drinks/Week Comments Yes 1.7 (1 standard drink = 0.6 oz p ure alcohol) Sex and Gender Information Value Date Recorded Sex Assigned at Not on file Gender Identity Not on file Sexual Orientation Not on file documented as of this encounter Last Filed Vital Signs Vital Sign Reading Time Taken Comments Blood Pressure 112/71 05/04/2014 11:49 AM EDT Pulse 61 05/04/2014 11:49 AM EDT Temperature 36.4 ??C (97.5 ??F) 05/04/2014 1 1:49 AM EDT Respiratory Rate 20 05/04/2014 11:4 9 AM EDT Oxygen Saturation 97% 05/04/2014 11: 49 AM EDT Inhaled Oxygen Concentration - - Weight 53.9 kg (118 lb 13.3 oz) 05/04/2014 8:35 AM EDT Height 160 cm (5' 3) 05/04/2014 8:56 AM EDT Body Mass Index 20.93 05/04/2014 8:56 AM EDT documented in this encounter Discharge Instructions * Discharge Instructions* Aliyah Beverly APRN - 05/05/2014 11:43 AM EDT Driving: No driving for 48 hours after catheterization. Follow up Appointments: PCP RAPHAEL DIXON MD will see you on 05/10/14 at 130 pm if you have questions please call [phone] Greenberg will see you on 06/08/14 at 12 noon if you have questions please call [phone] Home oxygen therapy: N/A Arrangements for VNA/home care: none documented in this encounter Medications at Time of Discharge Medication Sig Dispensed Refills Start Date End Date pantoprazole (PROTONIX) 40 mg tablet Take 1 tablet by mouth daily. 90 tablet 3 05/05/2014 aspirin 81 mg EC tablet Take 1 tablet by mouth daily. 30 tablet 3 05/05/2014 gabapentin (NEURONTIN) 600 mg tablet Take 600 mg by mouth nightly. 03/11/2014 Calcium Carbonate-Vit D3-Min 600 mg calcium- 400 unit Tab Take by mouth daily. traZODone (DESYREL) 100 mg tablet Take 100 mg by mouth nightly. 03/11/2014 06/25/2021 documented as of this encounter Progress Notes * Caitlin Khan - 05/05/2014 12:16 PM EDT Nutrition Services - Education Note Floridalma Ibarra : 1950 AGE: 63 y.o. Patient Active Problem List Diagnosis Date Noted ??? *Hospital-Chest tightness or pressure 05/04/2014 ??? Osteoporosis 05/04/2014 Chronic ??? Spinal stenosis 05/04/2014 Chronic ??? RLS (restless legs syndrome) 05/04/2014 Chronic ??? Hospital-Nicotine dependence 05/04/2014 Chronic ??? Hospital-Depression 05/04/2014 Chronic ??? Hospital-Fibromyalgia 05/04/2014 Chronic ??? IBS (irritable bowel syndrome) 05/04/2014 Chronic ??? Hospital-Carotid bruit 05/04/2014 Chronic Reason for Nutrition Intervention: Consult Diet Order: [facility] Appetite: Good Food allergies: NKFA Chewing/Swallowing difficulty: none Height: 160cm Weight: 53.6kg Body mass index is 20.94 kg/(m^2). Education: Guidelines for a Heart Healthy Lifestyle dietary guidelines. Verbalized good understanding. Education material, with means of contact provided. Assessment: Patient and visitors showed a good understanding of the Heart Healthy Lifestyle. Patient stated she has a very bad diet at home. She seemed like she knew she needed to make a change. Nofurther questions or concerns at this time. Nutrition Plan: Diet: Continue Current Diet Encourage good po intake. Monitor weight. Support and encouragement provided. Nutrition services to follow weekly thru hospital course unless consulted in the interim. DVAID Burns * Ellis Rose RN - 05/05/2014 12:14 PM EDT Patient Name: Floridalma Ibarra Patient Age: 63 y.o. Birthdate: 1950 Admit date: 05/04/2014 Attending Physician: Dino Heller MD Patient given discharge instructions on new medications and where to pick them up in [facility], Patient alerted to driving restriction for 48 hours post procedure. PIV X 2 removed; Telemetry Box discontinued; patient leaving with family in a private car with her family. ... One stop in the hospital before departure to have ZIO Patch placed... Patient was made aware of MD appointments made for followup care. 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 Chest tightness or pressure ??? Nicotine dependence Chronic ??? Depression Chronic ??? Fibromyalgia Chronic ??? Carotid bruit Chronic Resolved Hospital Problems Diagnosis Date Resolved No resolved problems to display. Interval History: Patient continues to experience occasional transient chest pressure. Review of Systems: Review of Systems Constitutional: Negative for fever, chills and diaphoresis. Poor appetite at baseline Respiratory: Negative for cough, chest tightness and shortness of breath. Cardiovascular: Negative for chest pain, palpitations and leg swelling. Chest pressure Gastrointestinal: Positive for constipation. Genitourinary: Negative for dysuria. Musculoskeletal: Negative. Skin: kearns Neurological: Negative for dizziness, syncope and light-headedness. Telemetry: HR: 60-70's sinus rhythm Meds: Scheduled Meds: ??? traZODone 50 mg Oral Nightly ??? pantoprazole 40 mg Oral Daily ??? sodium chloride 0.9 % 5 mL Intravenous Q12H ??? [COMPLETED] diaZEPam 5 mg Oral Once ??? [COMPLETED] diphenhydrAMINE 25 mg Oral Once ??? gabapentin 600 mg Oral Nightly ??? nicotine 14 mg Transdermal Nightly And ??? nicotine 1 patch Transdermal Nightly ??? [DISCONTINUED] heparin (porcine) ??? [DISCONTINUED] gabapentin 600 mg Oral Daily ??? [DISCONTINUED] nicotine 14 mg Transdermal Daily ??? [DISCONTINUED] nicotine 1 patch Transdermal Daily Continuous Infusions: ??? [DISCONTINUED] sodium chloride 0.9% 200 mL/hr (05/04/14 1030) ??? [DISCONTINUED] sodium chloride 0.9% Stopped (05/04/14 1930) PRN Meds:acetaminophen, diphenhydrAMINE/aluminum-magnesium hydroxide/lidocaine (BMX), [DISCONTINUED] nitroGLYcerin, [DISCONTINUED] heparin (porcine), [DISCONTINUED] lidocaine, [DISCONTINUED] midazolam (PF), [DISCONTINUED] atropine, [DISCONTINUED] fentaNYL Citrate (PF), [DISCONTINUED] iohexol Physical Exam: Vital Signs: Last value Range last 24 hrs Temperature Temp: 36.8 ??C (98.2 ??F) Temp: [36.5 ??C (97.7 ??F)-36.8 ??C (98.2 ??F)] Heart Rate Heart Rate: 79 Heart Rate: [40-79] Blood Pressure BP: 148/89 mmHg BP: (122-158)/(60-89) Respiratory Rate Resp: 16 Resp: [13-22] SpO2 SpO2: 100 % SpO2: [95 %-100 %] Physical Exam Vitals reviewed. Constitutional: She is oriented to person, place, and time. No distress. Frail frame Cardiovascular: Normal rate, regular rhythm, normal heart sounds and intact distal pulses. Exam reveals no gallop and no friction rub. No murmur heard. Pulmonary/Chest: Effort normal and breath sounds normal. No respiratory distress. She has no wheezes. Abdominal: Soft. Bowel sounds are normal. Musculoskeletal: She exhibits no edema and no tenderness. Right groin is clean, dry and intact. No hematoma, ooze or bruit noted. Intact distal pedal pulses. Neurological: She is oriented to person, place, and time. Skin: Skin is warm and dry. She is not diaphoretic. Psychiatric: Weepy with conversation regarding weight, smoking, and etoh Lab Comments: Recent Labs Basename 05/05/14 0401 05/04/14 1028 WBC 5.5 4.4 HGB 12.5 12.3 HCT 36.8 36.8 PLATELET 166 167 Recent Labs Basename 05/04/14 1028 INR 1.0 Recent Labs Basename 05/05/14 0401 05/04/14 1028 NA 140 140 K 4.2 4.1 CL 105 105 CO2 27 25 BUN 16 11 CREATININE 0.94 0.87 Recent Labs Basename 05/05/14 0401 AST 30 ALT 29 ALKPHOS 74 BILITOT 0.3 BILIDIR 0.1 Recent Labs Basename 05/04/14 1028 CALCIUM 9.0 MAGNESIUM -- PHOS -- Recent Labs Basename 05/05/14 0051 05/04/14 1913 05/04/14 1028 CK 54 53 62 TROPONINT <0.03 <0.03 <0.03 Pertinent Radiographic/Diagnostic Results: Labs reviewed Assessment: Floridalma Ibarra is a 63 y.o. female admitted in transfer from [facility] with 18 months of transient chest pressure and chest burning refractory to previous trials on prilosec then ranitidine. Previous MPI with fixed anterior wall defect and lvef 49% with mild anteroseptal HK, validated with coronary catheterization ef 50%, unknown etiology. Plan: 1.Nonischemic asymptomatic LV dysfunction - OSH ETT revealed a fixed defect of the anterior wall, ef 49% and mild A/S HK. EKG - LBBB with biphasic T waves in V1-3 Cardiac Cath with mild diffuse disease, nonobstructive coronary disease, mild MR LV showing decreased wall motion of the anterior wall which corresponds with the nuclear scan. EF is 50%. Etiology of the defect and wall motion abnormality unclear Apply ziopatch to r/o possible paf (microembolism) Follow up with Dr Greenberg when Zio results processed 2. GERD - Historically refractory to prilosec and ranitidine Discharge on protonix trial Suggest follow up with PCP regarding scheduling GI consult or proceeding with endoscopy 3. Alcoholism - Patient reports long history of heavy etoh, cut back over last 6 months to 3-4 beers/week with lessbinge behaviors No withdrawal sx noted inpatient 4. Poor dietary habits/decreased appetite with unintentional 25 lb weight loss/6 months - Albumin/total protein levels normal Will add on Prealbumin Nutrition consult ordered Recommend follow up with PCP Discussed dietary intolerances, recommendations to improve quality of intake 5. Depression - Patient admits to depressed mood Has tried residential youth counselor and antidepression meds in past without improvement Recommend follow up with PCP Suggested patient seek counselor that she can relate to 6. Nicotine dependence - Recommend patient continue to work on smoking cessation Suggest PFT's as outpatient Aliyah Beverly, FELICITY 05/05/2014 Attending Lead Refinery Supervisor Addendum: Floridalma Ibarra is a 63 y.o. year-old female patient whom I saw today with associate provider Aliyah Beverly. I have independently interviewed and examined the patient and reviewed the pertinent diagnostic information. I agree with the principal findings documented above. The assessment and plan were formulated in discussion with me. Asymptomatic and stable. Appears ready for discharge. Ziopatch to be applied. Will remain on ASA inthe meantime. Dino Heller M.D., F.A.C.C. Staff Lead Refinery Supervisor pager [phone] * Timmy Ly MD - 05/04/2014 4:19 PM EDT STAFF ADDENDUM: I have reviewed the available records, interviewed and examined the patient. I have discussed the patient's medical history, differential diagnosis, and plan of therapy with Aliyah Beverly and have reviewed their note dated 05/04/2014 and I agree with their note and plan of therapy. Interval History: 63yo woman transferred from [facility] for cardiac cath. She has a longstanding h/o symptoms suggestive of reflux and treated as such. Worsening symptoms prompted visit with Dr Greenberg and ETT for which she is referred for cath. Nuclear stress test report revealed a fixed defect of the anterior wall. EKG - LBBB with biphasic T waves in V1-3 Cardiac Cath today reveals anatomically clear coronary arteries with LV showing decreased wall motion of the anterior wall which corresponds with the nuclear scan. Overall EF is about 50%. Etiology of the defect and wall motion abnormality is unclear and may be due to coronary embolus sometime in the past. Would suggest EKG monitoring such as a ZIO patch to r/o PAF as an underlying mechanism. Lab Comments: Multiple labs assessed. Problems Reviewed: LBBB LV scar of ?etiology Plan: followup with Dr Greenberg Lab Comments: Multiple labs assessed. Problems Reviewed: Plan: * Marian El RN - 05/04/2014 12:05 PM EDT Marian El RN,CRC, [facility] Pager [phone] Office of Care Management (OCM) / Clinical Voice Writing Reporter (CRC)/ Initial Assessment Discussed patient with Provider Team and in multidisciplinary discharge-planning rounds. Reviewed record and interviewed patient. Introduced/reviewed CRC role and services accepted. REASON for HOSPITALIZATION: Chest tightness or pressure PMH LBBB. GERDS. PREVIOUS FUNCTIONAL STATUS: IADL. CURRENT FUNCTIONAL STATUS: IADL. SOCIAL / FAMILY SUPPORTS: Spouse and daughter. ADVANCE DIRECTIVES: No. Doesn't have time to think about it now. HEALTH /PRESCRIPTION COVERAGE: Medicare/Commericial CURRENT HOME/COMMUNITY SERVICES/EQUIPMENT: DME: None. Home Health Agency: None. Other: None. SULFURIC ACID PLANT SUPERVISOR REFERRAL: No needs identified at this time. PRIMARY CARE PHYSICIAN: RAPHAEL DIXON MD [id number] [facility] [id number] POTENTIAL DISCHARGE NEEDS: None identified at this time. PATIENT/FAMILY EDUCATION NEEDS: Reinforce treatment plan and d/c plan. ANTICIPATED BARRIERS TO DISCHARGE:None. TRANSPORTATION @ D/C: Spouse. PLAN: CRC will continue to monitor progress, follow for continuity of care and assist with discharge planning while hospitalized. Patient anxious about insurance coverage, just started Medicare and had questions. Questions answered and patient very appreciative. For cardiac cath this afternoon. . documented in this encounter H&P Notes * Timmy Ly MD - 05/04/2014 11:37 AM EDT STAFF ADDENDUM: I have reviewed the available records, interviewed and examined the patient. I have discussed the patient's medical history, differential diagnosis, and plan of therapy with Aliyah Beverly and have reviewed their note dated 05/04/2014 and I agree with their note and plan of therapy. Interval History: 63yo woman transferred from [facility] for cardiac cath. She has a longstanding h/o symptoms suggestive of reflux and treated as such. Worsening symptoms prompted visit with Dr Greenberg and ETT for which she is referred for cath. EKG - LBBB with biphasic T waves in V1-3 Lab Comments: Multiple labs assessed. Problems Reviewed: LBBB R/O CAD Plan: cath * Aliyah Beverly APRN - 05/04/2014 9:56 AM EDT Cardiology Admission H&P Patient Name: Floridalma Ibarra Date of : 1950 Age: 63 y.o. Hospital Admit Date: 05/04/2014 Inpatient Attending: Russell Whitman MD PCP: RAPHAEL DIXON MD Presenting Diagnosis/Chief Complaint: Unstable angina/chest pressure Active Problem List: Active Hospital Problems Diagnosis ??? Chest tightness or pressure ??? Nicotine dependence Chronic ??? Depression Chronic ??? Fibromyalgia Chronic ??? Carotid bruit Chronic Resolved Hospital Problems Diagnosis Date Resolved No resolved problems to display. History of Present Illness: HPI Comments: Floridalma John is a 63 yo female with no known CAD transferred from [facility] with chest pressure. The patient reports 18 months of intermittent chest pressure with ss burning both at rest and with exertion. Over the last 6 months these episodes have increased in frequency and intensitywith occasional radiation to her left arm. Duration is 5 minutes to intermittently throughout a day. She was recently prescribed ntg which relieves her pressure. Yesterday at 8 am, she developed chest pain with radiation to arm and hand without relief from ntg. She presented to [facility]. At [facility] her labs Cr 1.1, Mg 1.6 K 3.7, trop 0.02 x3, h/h 13.6/39.6, PLT 182, PT/INR 9.7/1.0, EKG nonspecific qrs widening with possible anteroseptal WA. She was loaded with plavix 300 mg and asa 324 mg. At [facility] her VS 36.5-65-16 95/40 95% ra. Diagnostics: There is notation regarding an MPI with fixed anterior defect earlier this month however I do not have access to this test/imaging. CXR hyperinflated lungs otherwise no evidence of acute intrapulmonary process. She was started on heparin gtt and ntg gtt and transferred to [facility] for further management/work up. She is a smoker 1/2 pk x 50 years, occasional etoh, last drink Thursday. She denies recreational druguse. 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 She is prescribed trazadone for depression and gabapentin for RLS. She also takes caltrate with vit d3 for OP. She no longer takes fosamax, famotidine or chantix. Positive family history of Maternal CAD. She has one brother with premature CAD and two sisters with CAD. On arrival to [facility] she is painfree on ntg gtt 20 mcg and heparin infusion. Labs and ekg are pending. Past Medical History: Past Medical History Diagnosis Date ??? Carotid bruit ??? Fibromyalgia ??? Osteoporosis ??? Spinal stenosis ??? IBS (irritable bowel syndrome) ??? RLS (restless legs syndrome) ??? Depression ??? Nicotine dependence Surgical History/Problems: Past Surgical History Procedure Date ??? Zander and bso ??? Tonsillectomy Significant Family History: Family History Problem Relation Age of Onset ??? Coronary Artery Disease Mother ??? Coronary Artery Disease Brother ??? Coronary Artery Disease Sister Social History: History Social History ??? Marital Status: Spouse Name: N/A Number of Children: N/A ??? 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 Smoking status: Current Every Day Smoker -- 0.5 packs/day for 50 years Types: Cigarettes ??? Smokeless tobacco: Not on file ??? Alcohol Use: 1.0 oz/week 2 drink(s) per week ??? Drug Use: No ??? Sexually Active: Not on file Other Topics Concern ??? Not on file Social History Narrative ??? No narrative on file REVIEW OF SYSTEMS: Review of Systems Constitutional: Positive for activity change and fatigue. Negative for fever, chills, diaphoresis and appetite change. Respiratory: Negative for cough, chest tightness and shortness of breath. Intermittent chest pressure, occasional sob Cardiovascular: Negative for chest pain, palpitations and leg swelling. Gastrointestinal: Negative. Occasional bloating Genitourinary: Negative for dysuria. Musculoskeletal: Negative. Neurological: Negative for dizziness, weakness and light-headedness. Medications: Prescriptions prior to admission Medication Sig Dispense Refill ??? gabapentin (NEURONTIN) 600 mg tablet ??? NITROSTAT 0.4 mg SL tablet ??? traZODone (DESYREL) 100 mg tablet ??? Calcium Carbonate-Vit D3-Min 600 mg calcium- 400 unit Tab Take by mouth. ??? [DISCONTINUED] omeprazole (PRILOSEC) 20 mg capsule Allergies: Allergies Allergen Reactions ??? Omeprazole ??? Oxycodone ??? Sulfa (Sulfonamide Antibiotics) PHYSICAL EXAM: Last set of vital signs: BP 137/78 Pulse 59 Temp 36.7 ??C (98.1 ??F) (Oral) Resp 20 Ht 160 cm (5' 3) Wt 53.9 kg (118 lb 13.3 oz) BMI 21.05 kg/m2 SpO2 99% Physical Exam Vitals reviewed. Constitutional: She is oriented to person, place, and time. No distress. Frail frame, kearns Cardiovascular: Normal rate, normal heart sounds and intact distal pulses. Exam reveals no gallop and no friction rub. No murmur heard. Pulmonary/Chest: Effort normal and breath sounds normal. Abdominal: Soft. Bowel sounds are normal. She exhibits no distension. There is no tenderness. Musculoskeletal: She exhibits no edema and no tenderness. Neurological: She is alert and oriented to person, place, and time. Skin: Skin is warm and dry. She is not diaphoretic. Psychiatric: She has a normal mood and affect. Diagnostics: I have independently visualized the following studies: Ecg: SB 55 LBBB LAD LABS: Recent Results (from the past 24 hour(s)) HEMOGRAM Component Value Range WBC 4.4 4.0 - 10.0 x10(3)/mcL RBC 4.03 3.93 - 5.22 x10(6)/mcL Hemoglobin 12.3 11.2 - 15.7 gm/dL Hematocrit 36.8 34.0 - 45.0 % MCV 91.3 79.0 - 94.0 fL MCH 30.5 26.6 - 32.2 pg MCHC 33.4 32.0 - 36.5 gm/dL Platelets 167 145 - 370 x10(3)/mcL RDWSD 46.3 (*) 35.0 - 46.0 fL RDWCV 13.7 10.9 - 14.4 % MPV 11.0 9.0 - 12.0 fL DIFFERENTIAL, AUTOMATED Component Value Range Neutrophils % 45.3 34.0 - 71.0 % Neutr Abs (ANC) 1.97 1.50 - 6.30 x10(3)/mcL Lymphocytes % 46.2 19.0 - 53.0 % Lymphocytes Abs 2.0 1.0 - 3.6 x10(3)/mcL Monocytes % 6.0 4.0 - 13.0 % Monocyte Abs 0.3 0.2 - 1.0 x10(3)/mcL Eosinophils % 1.4 0.0 - 7.0 % Eosinophils Abs 0.1 0.0 - 0.5 x10(3)/mcL Basophils % 1.1 0.0 - 2.0 % Basophils Abs 0.0 0.0 - 0.2 x10(3)/mcL Immature Gran % 0.00 0.00 - 0.66 % Emilie Gran Abs 0.00 0.00 - 0.05 x10(3)/mcL PROTHROMBIN TIME Component Value Range PT 14.2 12.5 - 15.5 sec INR 1.0 0.9 - 1.1 APTT Component Value Range PTT 59 (*) 25 - 35 sec ASSESSMENT: Floridalma Ibarra is a 63 yo female with no known CAD admitted for chest pressure. OSH biomarkers negative, ekg with question of anteroseptal elevation/LBBB. Labs pending. TREATMENT PLAN: 1. Chest pressure - ekg on admit and daily Serial enzymes Labs pending Consent for cath 2. GERD sx - No longer taking pepcid/intol to omeprazole Start protonix Provider: Aliyah Beverly APRN Provider #: [id number] 05/04/2014 documented in this encounter Procedure Notes * Provider, Scanning - 05/06/2014 9:45 AM EDTAssociated Order(s): SCAN DOC: BEAUTY ARTIST * Provider, Scanning - 05/04/2014 3:39 PM EDTAssociated Order(s): CARDIAC CATHETERIZATION documented in this encounter Miscellaneous Notes * Miscellaneous - Provider, Scanning - 05/06/2014 9:45 AM EDT * Discharge Summary - Timmy Ly MD - 05/05/2014 11:10 AM EDT Discharge Summary Patient Name: Floridalma Ibarra Patient Age: 63 y.o. Language: Azeri Race: White Ethnicity: Not nor Admit date: 05/04/2014 Discharge date and time: 05/05/2014 Attending Physician: Dino Heller MD Discharge Physician: Dino Heller MD Follow-up Recommendations for Providers: 1. Schedule EGD 2. Recommend area residential youth counselor for depression 3. Schedule PFT's 4. Cardiology to follow up with ziopatch results and determine future anticoagulation needs 5. Assess toleration/effect of new protonix and asa therapy Inpatient Provider Contact Information: Aliyah Popepkins, CUSTOM [employer]I MAKER [phone] Discharge Diagnoses (Hospital Problems) and Secondary Diagnoses (Chronic Problems): Active Hospital Problems Diagnosis ??? Chest tightness or pressure ??? Nicotine dependence Chronic ??? Depression Chronic ??? Fibromyalgia Chronic ??? Carotid bruit Chronic Resolved Hospital Problems Diagnosis Date Resolved No resolved problems to display. Active Non-Hospital Problems Diagnosis ??? Osteoporosis Chronic ??? Spinal stenosis Chronic ??? RLS (restless legs syndrome) Chronic ??? IBS (irritable bowel syndrome) Chronic Operations/Major Procedures: Operations: Procedure(s) with comments: CARDIAC CATHETERIZATION - Procedure: Coronary Angiography Other Major Procedures: none History of Presentation: Floridalma John is a 63 yo female with no known CAD transferred from [facility] with chest pressure. The patient reports 18 months of intermittent chest pressure with ss burning both at rest and with exertion. Over the last 6 months these episodes have increased in frequency and intensity with occasional radiation to her left arm. Duration is 5 minutes to intermittently throughout a day. She was recently prescribed ntg which relieves her pressure. Yesterday at 8 am, she developed chest pain with radiation to arm and hand without relief from ntg. She presented to [facility]. At [facility] her labs Cr 1.1, Mg 1.6 K 3.7, trop 0.02 x3, h/h 13.6/39.6, PLT 182, PT/INR 9.7/1.0, EKG nonspecific qrs widening with possible anteroseptal WA. She was loaded with plavix 300 mg and asa 324 mg. At [facility] her VS 36.5-65-16 95/40 95% ra. Diagnostics: There is notation regarding an MPI with fixed anterior defect earlier this month however I do not have access to this test/imaging at the time of admission. CXR hyperinflated lungs otherwise no evidence of acute intrapulmonary process. She was started on heparin gtt and ntg gtt and [facility] [facility] for further management/work up. She is a smoker 1/2 pk x 50 years, occasional etoh, last drink Thursday. She denies recreational druguse. 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 She is prescribed trazadone for depression and gabapentin for RLS. She also takes caltrate with vit d3 for OP. She no longer takes fosamax, famotidine or chantix. Positive family history of Maternal CAD. She has one brother with premature CAD and two sisters with CAD. Hospital Course: Nonischemic asymptomatic LV dysfunction - The patient was admitted with chest pressure/burning as indicated above with known OSH ETT fixed defect of the anterior wall, ef 49% and mild anteroseptal hypokinesis. EKG revealed known LBBB. Based on history and risk factors coronary catheterization was performed showing mild diffuse nonobstructive coronary disease and validating wall motion abnormality and confirming ef 50%. There was mild mitral regurgitation noted. LVEDP was 15. The etiology of the defect and wall motion abnormality are unclear at discharge. Application of ziopatch at discharge to rule out possible paf due to microembolism. Recommend follow up with Dr Greenberg when Zio results processed. As an inpatient she remained normotensive in NSR rates of 70-80's. She was discharged on daily aspirin 81 mg. GERD - She has a long history of gerd symptoms refractory to prilosec and ranitidine use. She is discharged on protonix trial. Suggest follow up with PCP regarding scheduling GI consult or proceeding with endoscopy Alcoholism - Patient reports long history of heavy etoh, cut back over last 6 months to 3-4 beers/week with lessbinge behaviors No withdrawal sx noted inpatient. Poor dietary habits/decreased appetite with unintentional 25 lb weight loss/6 months - Likely multifactorial and related to depression, etoh and gerd symptoms. Inpatient albumin/total protein levels normal. Prealbumin level is pending. Nutrition consult was ordered. Recommend follow up with PCP. She is going to try dietary modifications to try to improve the quality of the foods that she eats, in addition to decreasing the amounts of cocacola products she drinks daily. Discussed dietary intolerances and methods of investigating the sources. Depression - Patient admits to depressed mood and is weepy with conversation regarding weight/etoh and smoking habits. She has tried residential youth counselor and antidepression meds in past without improvement. Recommend follow up with PCP and suggest patient seek counselor that she can relate to as she mentioned this is why she stopped residential youth counselor in the past. Nicotine dependence - Recommend patient continue to work on smoking cessation. Suggest PFT's as outpatient with PCP follow up. Functional and Cognitive Status: Independently ambulatory and alert and oriented x4. Important Studies and Lab Data: Labs: Lab Results Component Value Date WBC 5.5 05/05/2014 HGB 12.5 05/05/2014 HCT 36.8 05/05/2014 PLATELET 166 05/05/2014 Recent Labs Basename 05/04/14 1028 INR 1.0 Lab Results Component Value Date NA 140 05/05/2014 K 4.2 05/05/2014 CL 105 05/05/2014 CO2 27 05/05/2014 BUN 16 05/05/2014 CREATININE 0.94 05/05/2014 No results found for this basename: TSH in the last 7068 hours Recent Labs Basename 05/05/14 0401 HA1C 5.5 Recent Labs Basename 05/05/14 0051 05/04/14 1913 05/04/14 1028 CK 54 53 62 TROPONINT <0.03 <0.03 <0.03 Lab Results Component Value Date CHLPL 153 05/05/2014 HDL 83 05/05/2014 CHOLHDL 1.8 05/05/2014 TRIG 90 05/05/2014 LDLCHOL 52 05/05/2014 Studies: Coronary catheterization 05/04/14 Dominance: Right LM: The left main was normal LAD:There was a mild diffuse disease of the entire vessel segment of the LAD. LCx:There was mild diffuse disease of the entire vessel segment of the LCX. RCA:There was mild diffuse disease of the entire vessel segment of the RCA. LVEDP 15 Pending Studies and Lab Data: prealbumin Discharge Conditions/Prognosis: Unchanged/good Discharge to: home Updated Allergies/ADRs: Allergies Allergen Reactions ??? Omeprazole ??? Oxycodone ??? Sulfa (Sulfonamide Antibiotics) Immunizations Given this Hospitalization: There is no immunization history on file for this patient. Discharge Medications: Your Medications As of 05/05/2014 11:58 AM New Medications Dose Details aspirin 81 mg EC tablet Take 1 tablet by mouth daily. 81 mg Quantity: 30 tablet Refills: 3 pantoprazole 40 mg tablet Commonly known as: PROTONIX Take 1 tablet by mouth daily. 40 mg Quantity: 90 tablet Refills: 3 Continued medications, unchanged Dose Details Calcium Carbonate-Vit D3-Min 600 mg calcium- 400 unit Tab Take by mouth. Refills: 0 gabapentin 600 mg tablet Commonly known as: NEURONTIN Refills: 0 traZODone 100 mg tablet Commonly known as: DESYREL Refills: 0 STOPPED Medications NITROSTAT 0.4 mg SL tablet Generic drug: nitroGLYcerin omeprazole 20 mg capsule Commonly known as: PRILOSEC Smoking Status at Discharge: History Smoking status ??? Current Every Day Smoker -- 0.5 packs/day for 50 years ??? Types: Cigarettes Smokeless tobacco ??? Not on file Instructions Given to Patient at Discharge: There are no Patient Instructions on file for this visit. General Instructions Driving: No driving for 48 hours after catheterization. Follow up Appointments: PCP RAPHAEL DIXON MD will see you on 05/10/14 at 130 pm if you have questions please call [phone] Greenberg will see you on 06/08/14 at 12 noon if you have questions please call [phone] Home oxygen therapy: N/A Arrangements for VNA/home care: none Future Appointments and Orders Future Appointments: Provider: Department: Dept Phone: Center: 05/05/2014 12:30 PM Event Monitor [facility] [phone] None Future Orders Please Complete By Celia BLEDSOE [[email or web address] Custom] 05/05/14 05/05/15 Process Instructions: Scheduling Instructions: Comments: Questions: Responses: Does the patient have a pacemaker? If yes provide HI/LO settings: Which location will this be performed? [place] Should this service/procedure be billed to the research sponsor? The [employer] has limited insurance coverage and patients are being billed in full. Conventional heart monitors should be ordered while payer appeals are completed. Has possible out of pocket expense been discussed with the patient? Yes Discharge References/Attachments None STAFF ADDENDUM: 63yo woman transferred from [facility] for cardiac cath. She has a longstanding h/o symptoms suggestive of reflux and treated as such. Worsening symptoms prompted visit with Dr Greenberg and ETT for which she is referred for cath. Nuclear stress test report revealed a fixed defect of the anterior wall. EKG - LBBB with biphasic T waves in V1-3 Cardiac Cath reveals anatomically clear coronary arteries with LV showing decreased wall motion of the anterior wall which corresponds with the nuclear scan. Overall EF is about 50%. Etiology of the defect and wall motion abnormality is unclear and may be due to coronary embolus sometime in the past. Would suggest EKG monitoring such as a ZIO patch to r/o PAF as an underlying mechanism. Lab Comments: Multiple labs assessed. Problems Reviewed: LBBB LV scar of ?etiology Plan: followup with Dr Greenberg * Miscellaneous - Provider, Scanning - 05/04/2014 3:37 PM EDT * Miscellaneous - Provider, Scanning - 05/04/2014 3:37 PM EDT documented in this encounter Plan of Treatment Upcoming Encounters Date Type Department Care Team (Late st Contact Info) Description 06/29/2024 2:40 PM EDT Office Visit Dermatology at [facility] [address] [place] [address] Emmanuelle Yeobah MD [facility] [place] [address] Scheduled Orders Name Type Priority Associated Diagnoses Orde r Schedule EKG 12 Lead ECG Routine Chest pain One Time for 1 Occurrences starting 05/04/2014 until 05/04/2014 EKG 12 Lead ECG Routine LBBB (left bundle branch block) One Time for 1 Occurrences starting 05/04/2014 until 05/04/2014 documented as of this encounter Procedures Procedure Name Priority Date/Time Associated Diagnosis Comments BEAUTY ARTIST SCAN 05/06/2014 9:45 AM EDT ZIOPATCH Routine 05/05/2014 12:51 PM EDT Chest tightness or pressure HEMOGRAM Routine 05/05/2014 4:01 AM EDT DIFFERENTIAL, AUTOMATED Routine 05/05/20 14 4:01 AM EDT CREATININE Routine 05/05/2014 4:01 AM EDT CBC (WITH DIFF) Routine 05/05/2014 4:01 AM EDT BUN Routine 05/05/2014 4:01 AM EDT HEMOGLOBIN A1C Routine 05/05/2014 4:01 AM EDT HEPATIC FUNCTION PANEL Routine 4 4:01 AM EDT LIPID PANEL (REFLEX DIRECT LDL) Routine 05/05/2014 4:01 AM EDT ELECTROLYTES PANEL Routine 05/05/2014 4: 01 AM EDT CARDIAC ENZYMES ([facility]P) STAT 05/05/2014 12:51 AM EDT CARDIAC ENZYMES ([facility]) STAT 05/04/2014 7:13 PM EDT CARDIAC CATHETERIZATION Routine 05/04/20 14 3:39 PM EDT HEMOGRAM STAT 05/04/2014 10:28 AM EDT DIFFERENTIAL, AUTOMATED STAT 05/04/20 14 10:28 AM EDT CARDIAC ENZYMES ([facility]) STAT 05/04/2014 10:28 AM EDT APTT STAT 05/04/2014 10:28 AM EDT PROTHROMBIN TIME STAT 05/04/2014 10:2 8 AM EDT CBC (WITH DIFF) STAT 05/04/2014 10:28 AM EDT BASIC METABOLIC PANEL STAT 05/04/2014 10:28 AM EDT EKG 12-LEAD STAT 05/04/2014 10:03 AM EDT Chest pain documented in this encounter Results * SCAN DOC: BEAUTY ARTIST (05/06/2014 9:45 AM EDT) Anatomical Region Laterality Modality Other Narrative 05/06/2014 10:22 AM EDT Procedure Note Provider, Scanning - 05/06/2014 9:45 AM EDT Scanning Provider MEDIA MGR SCAN EXT O RDR/RSLT * ZIOPATCH (05/05/2014 12:51 PM EDT) Anatomical Region Laterality Modality Other Narrative 05/24/2014 6:22 PM EDT [facility] ?ZIO PATCH ??REPORT Ordering Provider: ??Dino Heller MD ?? Interpreting Physician: Wilner Copeland MD ?? Baseline Date: ??05/05/14 ?? Indication for Zio Patch: ??Chest discomfort Quality of recordings submitted: [] Acceptable [x] Moderate artifact [] Considerable artifact Rhythm interpretation: 12 day Zio patch recording. ??Mean HR 75 bpm, range 40-156 bpm. Rare VPBs/couplets and APBs/couplets/triplets (<1% of beats). 382 SVT runs, up to 3.25 minutes at average rate of 124 bpm. Wenckebach block noted at about 0630; presumably during sleep. Triggered events X 3 correlated with NSR twice and non-sustained SVT. Diary entries X 8 (chest pain/pressure, pain/tingling in neck/arm, nausea, lightheaded) correlated with NSR once and an atrial triplet once; the other entries could not be evaluated as no time was provided. ?? Impression: ??Symptoms are associated with NSR and non-sustained atrial ectopy; clinical correlation required. ??Substrate for sustained SVT noted. Wilner Copeland MD Procedure Note Wilner Copeland MD - 05/24/2014 [facility] ZIO PATCH REPORT Ordering Provider: Dino Heller MD Interpreting Physician: Wilner Copeland MD Baseline Date: 05/05/14 Indication for Zio Patch: Chest discomfort Quality of recordings submitted: [] Acceptable [x] Moderate artifact [] Considerable artifact Rhythm interpretation: 12 day Zio patch recording. Mean HR 75 bpm, range 40-156 bpm. Rare VPBs/couplets and APBs/couplets/triplets (<1% of beats). 382 SVT runs, up to 3.25 minutes at average rate of 124 bpm. Wenckebach block noted at about 0630; presumably during sleep. Triggered events X 3 correlated with NSR twice and non-sustained SVT. Diary entries X 8 (chest pain/pressure, pain/tingling in neck/arm, nausea,lightheaded) correlated with NSR once and an atrial triplet once; theother entries could not be evaluated as no time was provided. Impression: Symptoms are associated with NSR and non-sustained atrialectopy; clinical correlation required. Substrate for sustained SVT noted. Wilner Copeland MD Dino Heller MD CARDIAC SERVICES ORD ERABLES * Differential, Automated (05/05/2014 4:01 AM EDT) Neutrophil % 46.8 34.0 - 71.0 % CERNER MILLENNIUM Neutrophil Absolute 2.56 1.50 - 6.30 x10(3)/mcL CERNER MILLENNIUM Lymph % 43.4 19.0 - 53.0 % CERNER MILLENNIUM Lymphocytes Abs 2.4 1.0 - 3.6 x10(3)/mcL CERNER MILLENNIUM Monocyte % 7.5 4.0 - 13.0 % CERNER MILLENNIUM Monocyte Abs 0.4 0.2 - 1.0 x10(3)/mcL CERNER MILLENNIUM Eos % 1.6 0.0 - 7.0 % CERNER MILLENNIUM Eosinophils Abs 0.1 0.0 - 0.5 x10(3)/mcL CERNER MILLENNIUM Basophil % 0.7 0.0 - 2.0 % CERNER MILLENNIUM Baso Absolute 0.0 0.0 - 0.2 x10(3)/mcL CERNER MILLENNIUM Immature Gran % 0.00 0.00 - 0.66 % CERNER MILLENNIUM Comment: Immature granulocytes(IG's)percentage and absolute count will include metamyelocytes, myelocytes, and promyelocytes. Blood smears from CBCs yielding IG's will be scanned manually for concordance. If this scan disagrees with the automated IG or if promyelocytes are noted, a manual differential will be performed. Immature Gran Absolute 0.00 0.00 - 0.05 x10(3)/mcL CERNER MILLENNIUM Blood specimen (specimen) 05/05/2014 4:01 AM EDT 05/05/2014 4:22 AM EDT Narrative Resulting Agency Comment Spec In Lab Timmy Ly MD HEMATOLOGY ORDERABLE S CERNER MILLENNIUM * (ABNORMAL) Hemogram (05/05/2014 4:01 AM EDT) White Blood Cell 5.5 4.0 - 10.0 x10(3)/mc L CERNER MILLENNIUM Red Blood Cell 4.03 3.93 - 5.22 x10(6)/mc L CERNER MILLENNIUM Hemoglobin 12.5 11.2 - 15.7 gm/dL CERNER MILLENNIUM Hematocrit 36.8 34.0 - 45.0 % CERNER MILLENNIUM Mean Cell Volume 91.3 79.0 - 94.0 fL CERNER MILLENNIUM Mean Cell Hemoglobin 31.0 26.6 - 32.2 pg CERNER MILLENNIUM Mean Cell Hemoglobin Concentration 34.0 32.0 - 36.5 gm/dL CERNER MILLENNIUM Platelet 166 145 - 370 x10(3)/mc L CERNER MILLENNIUM RDW Standard Deviation 46.2(H) 35.0 - 46.0 fL CERNER MILLENNIUM RDW coefficient of variation 13.8 10.9 - 14.4 % CERNER MILLENNIUM Mean Platelet Volume 10.3 9.0 - 12.0 fL CERNER MILLENNIUM Blood specimen (specimen) 05/05/2014 4:01 AM EDT 05/05/2014 4:22 AM EDT Narrative Resulting Agency Comment Spec In Lab Timmy Ly MD HEMATOLOGY ORDERABLE S Performing Organization Address [facility] Co de Phone Number [facility] PAMENNIUM * (ABNORMAL) Hepatic Function Panel (05/05/2014 4:01 AM EDT) Protein, Total 5.9(L) 6.4 - 8.3 gm/dL CERNER MILLENNIUM Albumin 3.7 3.2 - 5.2 gm/dL CERNER MILLENNIUM Aspartate Aminotransferase 30 0 - 30 unit/L CERNER MILLENNIUM Alanine Aminotransferase 29 0 - 30 unit/L CERNER MILLENNIUM Alkaline Phosphatase 74 40 - 104 unit/L CERNER MILLENNIUM Bilirubin, Total 0.3 0.2 - 1.3 mg/dL CERNER MILLENNIUM Bilirubin, Direct 0.1 0.0 - 0.3 mg/dL CERNER MILLENNIUM Blood specimen (specimen) 05/05/2014 4:01 AM EDT 05/05/2014 4:22 AM EDT Narrative Resulting Agency Comment Spec In Lab Timmy Ly MD CHEMISTRY ORDERABLES Performing Organization Address [facility] de Phone Number [facility] * Hemoglobin A1c (05/05/2014 4:01 AM EDT) Hemoglobin A1c 5.5 <=5.6 % CERNE R MILLENNIUM Comment: Reference Range: 4.3 ? 5.6% 5.7 ? 6.4% - Increased Risk of Developing Diabetes Mellitus 6.5% - Consistent with diagnosis of Diabetes Mellitus In the absence of hyperglycemia (i.e. plasma glucose > 200 mg/dL) or classic symptoms of hyperglycemia a repeat measurement of HbA1c should be performed on a separate sample to confirm the diagnosis. Diagnosis and Classification of Diabetes Mellitus, Diabetes Care 2013; 36: Suppl. 1, V38-56 Estimated Average Glucose 111 mg/dL [facility] Comment: eAG equivalents for HbA1c percentages: HbA1c(%) ?eAG(mg/dL) 6.0 ?126 6.5 ?140 7.0 ?154 7.5 ?169 8.0 ?183 8.5 ?197 9.0 ?212 9.5 ?226 10.0 ? 240 Limitations: The eAG calculation has not been validated on women, individuals below 18 years old and above 70 years old, and individuals with hemoglobinopathies. Additional resources are available on the ADA website: http://[employer]/DHMCadacalc Ralph FORTUNE, Hal J, Isa R, et al. ??Translating the A1C assay into estimated average glucose values. ??Diabetes Care 2008:31(8):7091-2831. Blood specimen (specimen) 05/05/2014 4:01 AM EDT 05/05/2014 4:22 AM EDT Narrative Resulting Agency Comment Spec In Lab Timmy Ly MD CHEMISTRY ORDERABLES [facility] * Lipid panel (fasting) (05/05/2014 4:01 AM EDT) Cholesterol, Total 153 <=199 mg/dL [facility] Comment: Recommendations of the NCEP Adult Treatment Panel for the following risk cutoff thresholds for the [place] population: Desirable: <200 mg/dL Borderline High: 200-239 mg/dL High: > or = 240 mg/dL Triglyceride 90 <=149 mg/dL [facility] Comment: Reference Range: Normal triglycerides: ??<150 mg/dL Borderline high: ??150-199 mg/dL High: ??200-499 mg/dL Very high: ??>av=195 mg/dL VIDYA 2001; 285(19):8697-8231 HDL Cholesterol 83 >=40 mg/dL [facility] Comment: Reference range: ??Low HDL: ?? < 40 mg/dL ??Normal: ?40-60 mg/dL ??Desirable: > 60 mg/dL VIDYA 2001; 285(19):7854-5537 LDL Cholesterol 52 <=99 mg/dL [facility] Comment: Reference range: ?? Optimal: ?<100 mg/dL ?? Near Optimal/Above Optimal: ?? 100-129 mg/dL ?? Borderline high: ?130-159 mg/dL ?? High: ? 160-189 mg/dL ?? Very high: ?>bd=819 mg/dL VIDYA 2001: 285(19):1238-9458 Cholesterol/HDL Ratio 1.8 ratio [facility] Comment: A Cholesterol to HDL ratio below 4:1 is desirable. ??Studies suggest that increased CAD risk occurs at ratios above 5 for females and above 6 for men. ? [place] Heart Association ??(http://www.americanheart.org) ? Fiordaliza Int Med, 1994; 121:641 ? AM J Med, 1998; 105(1A):48S Blood specimen (specimen) 05/05/2014 4:01 AM EDT 05/05/2014 4:22 AM EDT Narrative Resulting Agency Comment Spec In Lab Timmy Ly MD CHEMISTRY ORDERABLES [facility] * Creatinine (05/05/2014 4:01 AM EDT) Creatinine 0.94 0.70 - 1.20 mg/dL CERNER MILLENNIUM Comment: Please note that the pediatric reference intervals supplied above were not validated at [facility]. Results from pediatric patients should be interpreted in conjunction to the patient's age, height and muscle mass. Est Glomerular Filtration Rate 60 >=60 CERNER MILLENNIUM Comment: This estimated GFR (eGFR) value was calculated using the MDRD equation which has been validated on patients between the ages of 18 and 70. The MDRD should not be used to assess kidney function in patients < 18 years of age or in patients with extremes of body mass, or in patients with acute kidney failure. This value should be multiplied by 1.2 for patients. For further information please copy and paste the following links into your internet browser. http://[employer]/DHnkdep [email or web address]/[facility] Blood specimen (specimen) 05/05/2014 4:01 AM EDT 05/05/2014 4:22 AM EDT Narrative Resulting Agency Comment Spec In Lab Timmy Ly MD CHEMISTRY ORDERABLES Performing Organization Address [facility] de Phone Number [facility] * BUN (05/05/2014 4:01 AM EDT) Blood Urea Nitrogen 16 8 - 18 mg/dL [facility] Blood specimen (specimen) 05/05/2014 4:01 AM EDT 05/05/2014 4:22 AM EDT Narrative Resulting Agency Comment Spec In Lab Timmy Ly MD CHEMISTRY ORDERABLES Performing Organization Address [facility] de Phone Number [facility] * Electrolytes panel (05/05/2014 4:01 AM EDT) Sodium 140 135 - 145 mmol/L [facility] MILLENNIUM Potassium 4.2 3.5 - 5.0 mmol/L CERNER MILLENNIUM Comment: Please note: ??Patients with WBC >100,000 may have falsely elevated Potassium levels. ??For accurate Potassium quantification in these patients send serum separator tube (gold top) for subsequent determinations. ??Contact the Clinical Chemistry Laboratory if there are any questions. Chloride 105 98 - 107 mmol/L CERNER MILLENNIUM Carbon Dioxide 27 22 - 31 mmol/L CERNER MILLENNIUM Anion Gap 8 5 - 15 mmol/L CERNER MILLENNIUM Blood specimen (specimen) 05/05/2014 4:01 AM EDT 05/05/2014 4:22 AM EDT Narrative Resulting Agency Comment Spec In Lab Timmy Ly MD CHEMISTRY ORDERABLES Performing Organization Address [facility] de Phone Number [facility] * Cardiac Enzymes (05/05/2014 12:51 AM EDT) Troponin-T <0.03 <=0.03 ng/mL CERNER MILLENNIUM Comment: 0.03 ng/mL: Represents the 99th percentile upper reference limit for normals. >0.03 ng/mL: Elevated cardiac troponin T level indicative of myocardial damage. Diagnosis of acute, evolving or recent [place] requires a typical rise and gradual fall of cTnT with at least ONE of the following: a) Ischemic symptoms b) Development of pathologic Q waves on the ECG c) ECG changes indicative of eschemia (S-T segment elevation/depression) d) Coronary artery intervention Serial bloods should be obtained for testing on admission, at 6 to 9 hrs and again at 12 to 24 hrs if earlier samples are negative and the clinical index of suspicion is high. Reference: [Myocardial infarction redefined? a consensus document of the Joint Society of Cardiology/[place] College of Cardiology Committee for the redefinition of myocardial infarction. ??Journal of the [place] College of Cardiology 2000; 36: 959-969] Creatine Kinase 54 0 - 160 unit/L CERNER MILLENNIUM Blood specimen (specimen) 05/05/2014 12:51 AM EDT 05/05/2014 12:55 AM EDT Narrative Resulting Agency Comment Spec In Lab Timmy Ly MD CHEMISTRY ORDERABLES Performing Organization Address [facility] de Phone Number [facility] * Cardiac Enzymes (05/04/2014 7:13 PM EDT) Troponin-T <0.03 <=0.03 ng/mL CERNER MILLENNIUM Comment: 0.03 ng/mL: Represents the 99th percentile upper reference limit for normals. >0.03 ng/mL: Elevated cardiac troponin T level indicative of myocardial damage. Diagnosis of acute, evolving or recent [place] requires a typical rise and gradual fall of cTnT with at least ONE of the following: a) Ischemic symptoms b) Development of pathologic Q waves on the ECG c) ECG changes indicative of eschemia (S-T segment elevation/depression) d) Coronary artery intervention Serial bloods should be obtained for testing on admission, at 6 to 9 hrs and again at 12 to 24 hrs if earlier samples are negative and the clinical index of suspicion is high. Reference: [Myocardial infarction redefined? a consensus document of the Joint Society of Cardiology/[place] College of Cardiology Committee for the redefinition of myocardial infarction. ??Journal of the [place] College of Cardiology 2000; 36: 959-969] Creatine Kinase 53 0 - 160 unit/L CERNER PAMENNIUM Blood specimen (specimen) 05/04/2014 7:13 PM EDT 05/04/2014 7:26 PM EDT Narrative Resulting Agency Comment Spec In Lab Timmy Ly MD CHEMISTRY ORDERABLES [facility] * Cardiac Catheterization (05/04/2014 3:39 PM EDT) Anatomical Region Laterality Modality Other Narrative 05/04/2014 3:48 PM EDT Procedure Note Provider, Scanning - 05/04/2014 3:39 PM EDT Timmy Ly MD CARDIAC CATH ORDERAB LES * Differential, Automated (05/04/2014 10:28 AM EDT) Neutrophil % 45.3 34.0 - 71.0 % CERNER MILLENNIUM Neutrophil Absolute 1.97 1.50 - 6.30 x10(3)/mcL CERNER MILLENNIUM Lymph % 46.2 19.0 - 53.0 % CERNER MILLENNIUM Lymphocytes Abs 2.0 1.0 - 3.6 x10(3)/mcL CERNER MILLENNIUM Monocyte % 6.0 4.0 - 13.0 % CERNER MILLENNIUM Monocyte Abs 0.3 0.2 - 1.0 x10(3)/mcL CERNER MILLENNIUM Eos % 1.4 0.0 - 7.0 % CERNER MILLENNIUM Eosinophils Abs 0.1 0.0 - 0.5 x10(3)/mcL CERNER MILLENNIUM Basophil % 1.1 0.0 - 2.0 % CERNER MILLENNIUM Baso Absolute 0.0 0.0 - 0.2 x10(3)/mcL CERNER MILLENNIUM Immature Gran % 0.00 0.00 - 0.66 % CERNER MILLENNIUM Comment: Immature granulocytes(IG's)percentage and absolute count will include metamyelocytes, myelocytes, and promyelocytes. Blood smears from CBCs yielding IG's will be scanned manually for concordance. If this scan disagrees with the automated IG or if promyelocytes are noted, a manual differential will be performed. Immature Gran Absolute 0.00 0.00 - 0.05 x10(3)/mcL CERNER MILLENNIUM Blood specimen (specimen) 05/04/2014 10:28 AM EDT 05/04/2014 11:10 AM EDT Narrative Resulting Agency Comment Spec In Lab Timmy Ly MD HEMATOLOGY ORDERABLE S CERLISANDRA OROZCOENNIUM * (ABNORMAL) Hemogram (05/04/2014 10:28 AM EDT) White Blood Cell 4.4 4.0 - 10.0 x10(3)/mc L CERNER MILLENNIUM Red Blood Cell 4.03 3.93 - 5.22 x10(6)/mc L CERNER MILLENNIUM Hemoglobin 12.3 11.2 - 15.7 gm/dL CERNER MILLENNIUM Hematocrit 36.8 34.0 - 45.0 % CERNER MILLENNIUM Mean Cell Volume 91.3 79.0 - 94.0 fL CERNER MILLENNIUM Mean Cell Hemoglobin 30.5 26.6 - 32.2 pg CERNER MILLENNIUM Mean Cell Hemoglobin Concentration 33.4 32.0 - 36.5 gm/dL CERNER MILLENNIUM Platelet 167 145 - 370 x10(3)/mc L CERNER MILLENNIUM RDW Standard Deviation 46.3(H) 35.0 - 46.0 fL CERNER MILLENNIUM RDW coefficient of variation 13.7 10.9 - 14.4 % CERNER MILLENNIUM Mean Platelet Volume 11.0 9.0 - 12.0 fL CERNER MILLENNIUM Blood specimen (specimen) 05/04/2014 10:28 AM EDT 05/04/2014 11:10 AM EDT Narrative Resulting Agency Comment Spec In Lab Timmy Ly MD HEMATOLOGY ORDERABLE S CERNER MILLENNIUM * Basic Metabolic Panel (non-fasting) (05/04/2014 10:28 AM EDT) Glucose 87 60 - 199 mg/dL CERNER MILLENNIUM Comment:Diabetes: >=200 mg/d L plus symptoms Blood Urea Nitrogen 11 8 - 18 mg/dL CERNER MILLENNIUM Creatinine 0.87 0.70 - 1.20 mg/dL CERNER MILLENNIUM Comment: Please note that the pediatric reference intervals supplied above were not validated at [facility]. Results from pediatric patients should be interpreted in conjunction to the patient's age, height and muscle mass. Sodium 140 135 - 145 mmol/L CERNER MILLENNIUM Potassium 4.1 3.5 - 5.0 mmol/L CERNER MILLENNIUM Comment: Please note: ??Patients with WBC >100,000 may have falsely elevated Potassium levels. ??For accurate Potassium quantification in these patients send serum separator tube (gold top) for subsequent determinations. ??Contact the Clinical Chemistry Laboratory if there are any questions. Chloride 105 98 - 107 mmol/L CERNER MILLENNIUM Carbon Dioxide 25 22 - 31 mmol/L CERNER MILLENNIUM Anion Gap 10 5 - 15 mmol/L CERNER MILLENNIUM Calcium 9.0 8.5 - 10.5 mg/dL CERNER MILLENNIUM Est Glomerular Filtration Rate >60 >=60 CERNER MILLENNIUM Comment: This estimated GFR (eGFR) value was calculated using the MDRD equation which has been validated on patients between the ages of 18 and 70. The MDRD should not be used to assess kidney function in patients < 18 years of age or in patients with extremes of body mass, or in patients with acute kidney failure. This value should be multiplied by 1.2 for patients. For further information please copy and paste the following links into your internet browser. [email or web address] Blood specimen (specimen) 05/04/2014 10:28 AM EDT 05/04/2014 11:10 AM EDT Narrative Resulting Agency Comment Spec In Lab Timmy Ly MD CHEMISTRY ORDERABLES Performing Organization Address [facility] Co de Phone Number [employer] * Cardiac Enzymes (05/04/2014 10:28 AM EDT) Pathologist [facility] Troponin-T <0.03 <=0.03 ng/mL MAXWELL [employer] Comment: 0.03 ng/mL: Represents the 99th percentile upper reference limit for normals. >0.03 ng/mL: Elevated cardiac troponin T level indicative of myocardial damage. Diagnosis of acute, evolving or recent [place] requires a typical rise and gradual fall of cTnT with at least ONE of the following: a) Ischemic symptoms b) Development of pathologic Q waves on the ECG c) ECG changes indicative of eschemia (S-T segment elevation/depression) d) Coronary artery intervention Serial bloods should be obtained for testing on admission, at 6 to 9 hrs and again at 12 to 24 hrs if earlier samples are negative and the clinical index of suspicion is high. Reference: [Myocardial infarction redefined? a consensus document of the Joint Society of Cardiology/[place] [employer] Committee for the redefinition of myocardial infarction. ??Journal of the [place] [employer] 2000; 36: 959-969] Creatine Kinase 62 0 - 160 unit/L MAXWELL [employer] Blood specimen (specimen) 05/04/2014 10:28 AM EDT 05/04/2014 11:10 AM EDT Narrative Resulting Agency Comment Spec In Lab Timmy Ly MD CHEMISTRY ORDERABLES Performing Organization Address [facility] Co de Phone Number MAXWELL BRYANT * (ABNORMAL) APTT (05/04/2014 10:28 AM EDT) Partial Thromboplastin Time 59(H) 25 - 35 sec MAXWELL BRYANT Comment: Recommended therapeutic PTT range for full dose unfractionated heparin is 80-114 seconds. Blood specimen (specimen) 05/04/2014 10:28 AM EDT 05/04/2014 11:10 AM EDT Narrative Resulting Agency Comment Spec In Lab Timmy Ly MD HEMATOLOGY ORDERABLE S Performing Organization Address [facility] Co de Phone Number [facility] * Prothrombin Time (05/04/2014 10:28 AM EDT) Prothrombin Time 14.2 12.5 - 15.5 sec [facility] Comment: [facility] Transfusion Committee Guidelines: INR less than 2.0, PTT less than OR equal to 43.5 seconds, or Fibrinogen greater than or equal to 100 mg/dl indicate adequate procoagulant activity for hemostasis in patients without underlying bleeding disorders. International Normalization Ratio 1.0 0.9 - 1.1 [facility] Blood specimen (specimen) 05/04/2014 10:28 AM EDT 05/04/2014 11:10 AM EDT Narrative Resulting Agency Comment Spec In Lab Timmy Ly MD HEMATOLOGY ORDERABLE S Performing Organization Address [facility] Co de Phone Number [facility] * EKG 12 Lead (05/04/2014 10:03 AM EDT) Ventricular rate 55 BPM MUSE SYSTEM Atrial Rate 55 BPM MUSE SYSTEM P-R Interval 184 ms MUSE SYSTEM QRS Duration 132 ms MUSE SYSTEM Q-T Interval 496 ms MUSE SYSTEM QTC Calculated (Bezet) 474 ms MUSE SYSTEM Calculated P [place] 70 degrees MUSE SYSTEM Calculated R [place] -33 degrees MUSE SYSTEM Calculated T [place] 63 degrees MUSE SYSTEM INTERPRETATION Sinus bradycardia Left axis deviation Left bundle branch block Abnormal ECG No previous ECGs available Confirmed by MD JANICE, CARLOS ([id number]) on 05/05/2014 12:36:18 PM MUSE SYSTEM 05/04/2014 10:0 3 AM EDT 05/05/2014 12:36 PM EDT Timmy Ly MD ECG ORDERABLES MUSE SYSTEM documented in this encounter Visit Diagnoses Not on filedocumented in this encounter Administered Medications Inactive Administered Medications - up to 3 most recent administrations Medication Order MAR Action Action Date Dose Rate Site acetaminophen (TYLENOL) tablet 650 mg 650 mg, Oral, EVERY 4 HOURS PRN, Starting on Soumya 05/04/14 at 1203, Until Thu05/05/14 at 1421, Pain, Maximum dose of acetaminophen is 4000 mg from all sources in 24 hours., Routine Given 05/04/2014 12:07 PM EDT 650 mg diaZEPam (VALIUM) tablet 5 mg 5 mg, Oral, ONCE, 1 dose, On Soumya 05/04/14 at 1030, Cath (Day of Procedure), Routine Given 05/04/2014 2:08 PM EDT 5 mg diphenhydrAMINE (BENADRYL) capsule 25 mg 25 mg, Oral, ONCE, 1 dose, On Soumya 05/04/14 at 1030, Cath (Day of Procedure), Routine Given 05/04/2014 2:07 PM EDT 25 mg diphenhydrAMINE/aluminum -magnesium hydroxide/lidocaine (BMX) 1:1:1 Oral Suspension 5 mL, Oral, 2 TIMES DAILY PRN, heart blackwell, Starting on Soumya 05/04/14 at 2041, Until Thu05/05/14 at 1421, Each 5mL contains equal parts of Maalox, Lidocaine, and Diphenhydramine Given 05/04/2014 9:53 PM EDT 5 mLs gabapentin (NEURONTIN) capsule 600 mg 600 mg, Oral, NIGHTLY, First dose (after last modification) on Soumya 05/04/14 at 2100, Until Discontinued, Routine Given 05/04/2014 9:53 PM EDT 600 mg heparin (porcine) 25,000 unit/500 mL (50 unit/mL) infusion 1 dose, Starting on Soumya 05/04/14 at 0829, Until Soumya 05/04/14 at 1822, HERLINDA ELAM: cabinet override Rate/Dose Verify 05/04/2014 8:45 AM EDT 650 Units/hr 13 mL/hr iohexol (OMNIPAQUE) 350 mg iodine/mL injection ONCE PRN, Starting on Soumya 05/04/14 at 1538, Until Soumya 05/04/14 at 1538, Per Protocol, Cath (Intra-Procedure), Routine Given 05/04/2014 3:38 PM EDT 75 mLs lidocaine (XYLOCAINE) 10 mg/mL (1 %) injection ONCE PRN, Starting on Soumya 05/04/14 at 1458, Until Soumya 05/04/14 at 1538, Cath (Intra-Procedure), Routine Given 05/04/2014 2:58 PM EDT 100 mg nicotine (NICODERM CQ) 14 mg/24 hr patch 14 mg 14 mg, Transdermal, Administer over 24 Hours, NIGHTLY, First dose (after last modification) on Soumya 05/04/14 at 2200, Until Discontinued, Routine Given 05/04/2014 10:16 PM EDT 14 mg nitroGLYcerin 50 mg/250 mL (200 mcg/mL) infusion 1 dose, Starting on Soumya 05/04/14 at 0829, Until Soumya 05/04/14 at 0845, HERLINDA ELAM: cabinet override Given 05/04/2014 8:45 AM EDT 20 mcg/min pantoprazole (PROTONIX) tablet 40 mg 40 mg, Oral, DAILY, First dose on Soumya 05/04/14 at 1200, Until Discontinued, Restricted to patients on clopidogrel (PLAVIX) who require a proton pump inhibitor Given 05/05/2014 8:30 AM EDT 40 mg sodium chloride 0.9 % flush 5 mL 5 mL, Intravenous, EVERY 12 HOURS, First dose on Soumya 05/04/14 at 1030, Until Discontinued, Cath (Day of Procedure), Routine Given 05/05/2014 9:59 AM EDT 5 mLs Left Arm Given 05/04/2014 9:54 PM EDT 5 mLs Given 05/04/2014 10:30 AM EDT 5 mLs sodium chloride 0.9% infusion 200 mL/hr, Intravenous, CONTINUOUS, Starting on Soumya 05/04/14 at 1030, Until Soumya 05/04/14 at 1531, Cath (Day of Procedure) New Bag 05/04/2014 10:30 AM EDT 200 mL/hr 200 mL/hr sodium chloride 0.9% infusion 150 mL/hr, Intravenous, CONTINUOUS, Starting on Soumya 05/04/14 at 1600, Until Soumya 05/04/14 at 1822 New Bag 05/04/2014 3:45 PM EDT 150 mL/hr 150 mL/hr traZODone (DESYREL) tablet 50 mg 50 mg, Oral, NIGHTLY, First dose on Soumya 05/04/14 at 2100, Until Discontinued, Routine Given 05/04/2014 9:53 PM EDT 50 mg documented in this encounter Active and Recently Administered Medications Times are shown in EDT. Scheduled Medication Order 05/03/2014 05/04/2014 05/05/2014 diaZEPam (VALIUM) tablet 5 mg (COMPLETED) 5 mg, Oral, ONCE, 1 dose, On Soumya 05/04/14 at 1030, Cath (Day of Procedure), Routine 1408 (Given - Provider: Amber Camejo, WINDY) diphenhydrAMINE (BENADRYL) capsule 25 mg (COMPLETED) 25 mg, Oral, ONCE, 1 dose, On Soumya 05/04/14 at 1030, Cath (Day of Procedure), Routine 1407 (Given - Provider: Amber Camejo, WINDY) gabapentin (NEURONTIN) capsule 600 mg (CANCELED) 600 mg, Oral, NIGHTLY, First dose (after last modification) on Soumya 05/04/14 at 2100, Until Discontinued, Routine 215 (Given - Provider: Estrella Sommers, WINDY) nicotine (NICODERM CQ) 14 mg/24 hr patch 14 mg (CANCELED)(Linked Group 1) 14 mg, Transdermal, Administer over 24 Hours, NIGHTLY, First dose (after last modification) on Soumya 05/04/14 at 2200, Until Discontinued, Routine 2216 (Given - Provider: Estrella Sommers, WINDY) pantoprazole (PROTONIX) tablet 40 mg 40 mg, Oral, DAILY, First dose on Soumya 05/04/14 at 1200, Until Discontinued, Restricted to patients on clopidogrel (PLAVIX) who require a proton pump inhibitor 1200 (Not Given - Provider: Kayli Mccormack RN - Reason: Medication not available) 0830 (Given - Provider: Ellis Rose RN) sodium chloride 0.9 % flush 5 mL (CANCELED) 5 mL, Intravenous, EVERY 12 HOURS, First dose on Soumya 05/04/14 at 1030, Until Discontinued, Cath (Day of Procedure), Routine 1030 (Given - Provider: Kayli Mccormack RN)2154 (Given - Provider: Estrella Sommers, WINDY) 0959 (Given - Provider: Ellis Rose RN) traZODone (DESYREL) tablet 50 mg (CANCELED) 50 mg, Oral, NIGHTLY, First dose on Soumya 05/04/14 at 2100, Until Discontinued, Routine 215 (Given - Provider: Estrella Sommers, WINDY) Continuous Medication Order 05/03/2014 05/04/2014 05/05/2014 sodium chloride 0.9% infusion (CANCELED) 200 mL/hr, Intravenous, CONTINUOUS, Starting on Soumya 05/04/14 at 1030, Until Soumya 05/04/14 at 1531, Cath (Day of Procedure) 1030 (New Bag - Provider: Kayli Mccormack RN) sodium chloride 0.9% infusion (CANCELED) 150 mL/hr, Intravenous, CONTINUOUS, Starting on Soumya 05/04/14 at 1600, Until Soumya 05/04/14 at 1822 1545 (New Bag - Provider: Jocelyn Churchill, WINDY)1930 (Stopped - Provider: Estrella Sommers, WINDY) PRN Medication Order 05/03/2014 05/04/2014 05/05/2014 acetaminophen (TYLENOL) tablet 650 mg (CANCELED) 650 mg, Oral, EVERY 4 HOURS PRN, Starting on Soumya 05/04/14 at 1203, Until Thu05/05/14 at 1421, Pain, Maximum dose of acetaminophen is 4000 mg from all sources in 24 hours., Routine 1207 (Given - Provider: Kayli Mccormack, WINDY) diphenhydrAMINE/aluminum-magnesium hydroxide/lidocaine (BMX) 1:1:1 Oral Suspension (CANCELED) 5 mL, Oral, 2 TIMES DAILY PRN, heart blackwell, Starting on Soumya 05/04/14 at 2041, Until Thu05/05/14 at 1421, Each 5mL contains equal parts of Maalox, Lidocaine, and Diphenhydramine 2152 (Given - Provider: Leonel Sommers, WINDY) iohexol (OMNIPAQUE) 350 mg iodine/mL injection (CANCELED) ONCE PRN, Starting on Thu05/04/14 at 1538, Until Soumya 05/04/14 at 1538, Per Protocol, Cath (Intra-Procedure), Routine 1538 (Given - Provider: Pretty Collier) lidocaine (XYLOCAINE) 10 mg/mL (1 %) injection (CANCELED) ONCE PRN, Starting on Thu05/04/14 at 1458, Until Thu05/04/14 at 1538, Cath (Intra-Procedure), Routine 1458 (Given - Provider: Pretty Collier - Comment: right groin) No Frequency Medication Order 05/03/2014 05/04/2014 05/05/2014 heparin (porcine) 25,000 unit/500 mL (50 unit/mL) infusion (CANCELED) 1 dose, Starting on Thu05/04/14 at 0829, Until Thu05/04/14 at 1822, HERLINDA ELAM: cabinet override 0845 (Rate/Dose Verify - Provider: Kayli Mccormack, WINDY)1423 (Stopped - Provider: Amber Cameoj, WINDY) nitroGLYcerin 50 mg/250 mL (200 mcg/mL) infusion (COMPLETED) 1 dose, Starting on Thu05/04/14 at 0829, Until Thu05/04/14 at 0845, HERLINDA ELAM: cabinet override 0845 (Given - Provider: Kayli Mccormack, WINDY) Linked Groups Order Group 1: nicotine (NICODERM CQ) 14 mg/24 hr patch 14 mg (CANCELED)Jump to med 14 mg, Transdermal, Administer over 24 Hours, NIGHTLY, First dose (after last modification) on Thu05/04/14 at 2200, Until Discontinued, Routine And nicotine (NICODERM CQ) patch REMOVAL (CANCELED) Transdermal, NIGHTLY, First dose (after last modification) on Thu05/05/14 at 2100, Until Discontinued, Remove Nicotine Patch documented in this encounter Care Teams Adjuster Electrical Contacts Relationship Specialty Start Date End Date Raphael Dixon MD [address] [place] [address] PCP - General 05/04/14 07/23/22 documented as of this encounter
--- OUTSIDE RECORDS SUMMARY | 2024-06-14 01:47 | XMS_ITS | Encounter Summary ---
[place] [address] Care Team Providers Care Leg Man Name Role Phone Raphael Dixon MD Primary Care Provider [phone] Encounter Details Date Type Department Care Team (Latest Contact Info) Description 05/04/2014 8:23 AM EDT - 05/05/2014 12:20 PM EDT Hospital Encounter Intermediate [place] [address] Russell Whitman MD [facility] [place] [address] Timmy Ly MD [facility] [place] [address] Dino Heller MD [facility] [place] [address] Chest pain; LBBB (left bundle branch block); Chest tightness or pressure Discharge Disposition: Home Social History Tobacco Use [...] Sign Reading Time Taken Comments Blood Pressure 148/89 05/05/2014 7:00 AM EDT Pulse 79 05/05/2014 7:00 AM EDT Temperature 36.8 ??C (98.2 ??F) 05/05/2014 7:00 AM ED T Respiratory Rate 16 05/05/2014 7:00 AM EDT Oxygen Saturation 100% 05/05/2014 7:00 AM EDT Inhaled Oxygen Concentration - - Weight 53.6 kg (118 lb 2.7 oz) 05/05/2014 6:47 A M EDT Height 160 cm (5' 3) 05/04/2014 [...] pm if you have questions please call [phone] Greenberg will see you on 06/08/14 at 12 noon if you have questions please call [phone] Home oxygen therapy: N/A Arrangements for VNA/home [...] as of this encounter Progress Notes * Cailtin Khan - 05/05/2014 12:16 PM EDT Nutrition [...] Reason for Nutrition Intervention: Consult Diet Order: [facility] Appetite: Good Food allergies: NKFA Chewing/Swallowing difficulty: [...] hospital course unless consulted in the interim. DAVID Burns * Ellis Rose RN - 05/05/2014 12:14 PM EDT Patient Name: Floridalma Ibarra Patient Age: 63 y.o. Birthdate: 1950 Admit date: 05/04/2014 Attending Physician: Dino Heller MD Patient given discharge instructions on new medications and where to pick them up in [facility], Patient alerted to driving restriction for 48 [...] Progress Note Patient Name: Floridalma Ibarra Service: DISPATCHER STREET DEPARTMENT / PA Responsible Attending: Dino Heller MD [...] PHOS -- Recent Labs Basename 05/05/14 0051 06/26191205/04/14 1028 CK 54 53 62 TROPONINT <0.03 <0.03 <0.03 Pertinent Radiographic/Diagnostic Results: Labs reviewed Assessment: Floridalma Ibarra is a 63 y.o. female admitted in transfer from [facility] with 18 months of transient chest pressure [...] Patient admits to depressed mood Has tried bereavement counselor and antidepression meds in past without improvement Recommend follow up with PCP Suggested patient seek counselor that she can relate to 6. Nicotine dependence - Recommend patient continue to work on smoking cessation Suggest PFT's as outpatient Aliyah Beverly, FELICITY 05/05/2014 Attending Bore Miner Operator Addendum: Floridalam Ibarra is a 63 y.o. year-old female [...] inthe meantime. Dino Heller M.D., F.A.C.C. Staff Bore Miner Operator pager [phone] * Timmy Ly MD - 05/04/2014 4:19 PM EDT STAFF ADDENDUM: I have reviewed the available records, interviewed and examined the patient. I have discussed the patient's medical history, differential diagnosis, and plan of therapy with Aliyah Beverly and have reviewed their note dated 05/04/2014 and I agree with their note and plan of therapy. Interval History: 63yo woman transferred from [facility] for cardiac cath. She has a longstanding [...] 05/04/2014 12:05 PM EDT Marian El RN,CRC, [facility] Pager [phone] Office of Care Management (OCM) / Clinical Automotive Design Drafter (CRC)/ Initial Assessment Discussed patient with Provider [...] None. Home Health Agency: None. Other: None. SHIPPING INSPECTOR REFERRAL: No needs identified at this time. PRIMARY CARE PHYSICIAN: RAPHAEL DIXON MD [id number] [facility] [id number] POTENTIAL DISCHARGE NEEDS: None identified at this [...] therapy. Interval History: 63yo woman transferred from [facility] for cardiac cath. She has a longstanding h/o symptoms suggestive of reflux and treated as such. Worsening symptoms prompted visit with Dr Greenberg and ETT for which she is referred for cath. EKG - LBBB with biphasic T waves in V1-3 Lab Comments: Multiple labs assessed. Problems Reviewed: LBBB R/O CAD Plan: cath * Aliyah Beverly, ROTATING FIELD ASSEMBLER - 05/04/2014 9:56 AM EDT Cardiology Admission [...] female with no known CAD transferred from [facility] with chest pressure. The patient reports 18 [...] without relief from ntg. She presented to [facility]. At [facility] her labs Cr 1.1, Mg 1.6 K 3.7, trop 0.02 x3, h/h 13.6/39.6, PLT 182, PT/INR 9.7/1.0, EKG nonspecific qrs widening with possible anteroseptal OH. She was loaded with plavix 300 mg and asa 324 mg. At [facility] her VS 36.5-65-16 95/40 95% ra. Diagnostics: There is notation regarding an MPI with fixed anterior defect earlier this month however I do not have access to this test/imaging. CXR hyperinflated lungs otherwise no evidence of acute intrapulmonary process. She was started on heparin gtt and ntg gtt and transferred to [facility] [place] further management/work up. She is a [...] two sisters with CAD. On arrival to [facility] she is painfree on ntg gtt 20 [...] 05/06/2014 9:45 AM EDTAssociated Order(s): SCAN DOC: CORN MILLER * Provider, Scanning - 05/04/2014 3:39 PM EDTAssociated Order(s): CARDIAC CATHETERIZATION documented in this encounter Miscellaneous Notes * Miscellaneous - Provider, Scanning - 05/06/2014 9:45 AM EDT * Discharge Summary - Timmy Ly MD - 05/05/2014 11:10 AM EDT Discharge Summary Patient Name: Floridalma Ibarra Patient Age: 63 y.o. Language: Palestinian Race: White Ethnicity: Not nor Admit date: 05/04/2014 Discharge date and time: 05/05/2014 Attending Physician: Dino Heller MD Discharge Physician: Dino Heller MD Follow-up Recommendations for Providers: 1. Schedule EGD 2. Recommend area bereavement counselor for depression 3. Schedule PFT's 4. Cardiology to follow up with ziopatch results and determine future anticoagulation needs 5. Assess toleration/effect of new protonix and asa therapy Inpatient Provider Contact Information: Aliyah Beverly, ROTATING FIELD ASSEMBLER [phone] Discharge Diagnoses (Hospital Problems) and Secondary Diagnoses [...] female with no known CAD transferred from [facility] with chest pressure. The patient reports 18 [...] without relief from ntg. She presented to [facility]. At [facility] her labs Cr 1.1, Mg 1.6 K 3.7, trop 0.02 x3, h/h 13.6/39.6, PLT 182, PT/INR 9.7/1.0, EKG nonspecific qrs widening with possible anteroseptal OH. She was loaded with plavix 300 mg and asa 324 mg. At [facility] her VS 36.5-65-16 95/40 95% ra. Diagnostics: There is notation regarding an MPI with fixed anterior defect earlier this month however I do not have access to this test/imaging at the time of admission. CXR hyperinflated lungs otherwise no evidence of acute intrapulmonary process. She was started on heparin gtt and ntg gtt and transferred to [facility] [place] further management/work up. She is a [...] weight/etoh and smoking habits. She has tried bereavement counselor and antidepression meds in past without improvement. Recommend follow up with PCP and suggest patient seek counselor that she can relate to as she mentioned this is why she stopped bereavement counselor in the past. Nicotine dependence - [...] pm if you have questions please call [phone] Greenberg will see you on 06/08/14 at 12 noon if you have questions please call [phone] Home oxygen therapy: N/A Arrangements for VNA/home care: none Future Appointments and Orders Future Appointments: Provider: Department: Dept Phone: Center: 05/05/2014 12:30 PM Event Monitor [facility] Non-Invasive Cardiology Lab [phone] None Future Orders Please Complete By Expires RAKAN [[email or web address] Custom] 05/05/14 05/05/15 Process Instructions: Scheduling Instructions: Comments: Questions: Responses: Does the patient have a pacemaker? If yes provide HI/LO settings: Which location will this be performed? [place] Should this service/procedure be billed to the research sponsor? The ZioPatch has limited insurance coverage and patients are being billed in full. Conventional heart monitors should be ordered while payer appeals are completed. Has possible out of pocket expense been discussed with the patient? Yes Discharge References/Attachments None STAFF ADDENDUM: 63yo woman transferred from [facility] for cardiac cath. She has a longstanding [...] 2:40 PM EDT Office Visit Dermatology at [facility] [address] [place] [address] Emmanuelle Yeboah MD [facility] [address] [place] [address] Scheduled Orders Name Type Priority Associated Diagnoses Orde r Schedule EKG 12 Lead ECG Routine Chest pain One Time for 1 Occurrences starting 05/04/2014 until 05/04/2014 EKG 12 Lead ECG Routine LBBB (left bundle branch block) One Time for 1 Occurrences starting 05/04/2014 until 05/04/2014 documented as of this encounter Procedures Procedure Name Priority Date/Time Associated Diagnosis Comments CORN MILLER SCAN 05/06/2014 9:45 AM EDT ZIOPATCH Routine 05/05/2014 12:51 PM EDT Chest tightness or pressure HEMOGRAM Routine 05/05/2014 4:01 AM EDT DIFFERENTIAL, AUTOMATED Routine 05/05/20 4:01 AM EDT CREATININE Routine 05/05/2014 4:01 AM EDT CBC (WITH DIFF) Routine 05/05/2014 4:01 AM EDT BUN Routine 05/05/2014 4:01 AM EDT HEMOGLOBIN A1C Routine 05/05/2014 4:01 AM EDT HEPATIC FUNCTION PANEL Routine 4 4:01 AM EDT LIPID PANEL (REFLEX DIRECT LDL) Routine 05/05/2014 4:01 AM EDT ELECTROLYTES PANEL Routine 05/05/2014 4: 01 AM EDT CARDIAC ENZYMES ([facility]) STAT 05/05/2014 12:51 AM EDT CARDIAC ENZYMES ([facility]) STAT 05/04/2014 7:13 PM EDT CARDIAC CATHETERIZATION Routine 05/04/20 14 3:39 PM EDT HEMOGRAM STAT 05/04/2014 10:28 AM EDT DIFFERENTIAL, AUTOMATED STAT 05/04/20 14 10:28 AM EDT CARDIAC ENZYMES ([facility]) STAT 05/04/2014 10:28 AM EDT APTT STAT 05/04/2014 10:28 AM EDT PROTHROMBIN TIME STAT 05/04/2014 10:2 8 AM EDT CBC (WITH DIFF) STAT 05/04/2014 10:28 AM EDT BASIC METABOLIC PANEL STAT 05/04/2014 10:28 AM EDT EKG 12-LEAD STAT 05/04/2014 10:03 AM EDT Chest pain documented in this encounter Results * SCAN DOC: CORN MILLER (05/06/2014 9:45 AM EDT) Anatomical Region Laterality Modality Other Narrative 05/06/2014 10:22 AM EDT Procedure Note Provider, Scanning - 05/06/2014 9:45 AM EDT Scanning Provider MEDIA MGR SCAN EXT O RDR/RSLT * ZIOPATCH (05/05/2014 12:51 PM EDT) Anatomical Region Laterality Modality Other Narrative 05/24/2014 6:22 PM EDT [facility] ?ZIO PATCH ??REPORT Ordering Provider: ??Dino Heller [...] Note Wilner Copeland MD - 05/24/2014 [facility] ZIO PATCH REPORT Ordering Provider: Dino Heller [...] ORDERABLE S CERLISANDRA OROZCOENNIUM * (ABNORMAL) Hemogram (05/05/2014 4:01 AM EDT) [...] MD HEMATOLOGY ORDERABLE S Performing Organization Address [facility] de Phone Number CERLISANDRA OROZCOENNIUM * (ABNORMAL) Hepatic Function Panel (05/05/2014 4:01 AM EDT) Pathologist [facility] [place] Protein, Total 5.9(L) 6.4 - 8.3 gm/dL [...] Ly MD CHEMISTRY ORDERABLES Performing Organization Address [facility] Co de Phone Number CERNER MILLENNIUM * Hemoglobin A1c (05/05/2014 4:01 AM EDT) [...] Mellitus, Diabetes Care 2013; 36: Suppl. 1, S67-65 Estimated Average Glucose 111 mg/dL [facility] Comment: eAG equivalents for HbA1c percentages: HbA1c(%) ?eAG(mg/dL) 6.0 ?126 6.5 ?140 7.0 ?154 7.5 ?169 8.0 ?183 8.5 ?197 9.0 ?212 9.5 ?226 10.0 ? 240 Limitations: The eAG calculation has not been validated on women, individuals below 18 years old and above 70 years old, and individuals with hemoglobinopathies. Additional resources are available on the ADA website: http://Cuil.com/DHMCadacalc Ralph FORTUNE, Hal J, Isa R, et al. ??Translating the A1C assay into estimated average glucose values. ??Diabetes Care 2008:31(8):8845-8177. Blood specimen (specimen) 05/05/2014 4:01 AM EDT 05/05/2014 4:22 AM EDT Narrative Resulting Agency Comment Spec In Lab Timmy Ly MD CHEMISTRY ORDERABLES [facility] * Lipid panel (fasting) (05/05/2014 4:01 AM EDT) [facility] Signature Cholesterol, Total 153 <=199 mg/dL CERNER MILLENNIUM Comment: Recommendations of the NCEP Adult Treatment Panel for the following risk cutoff thresholds for the [place] population: Desirable: <200 mg/dL Borderline High: 200-239 mg/dL High: > or = 240 mg/dL Triglyceride 90 <=149 mg/dL CERNER MILLENNIUM Comment: Reference Range: Normal triglycerides: ??<150 mg/dL Borderline high: ??150-199 mg/dL High: ??200-499 mg/dL Very high: ??>bb=405 mg/dL VIDYA 2001; 285(19):1224-2366 HDL Cholesterol 83 >=40 mg/dL CER NER MILLENNIUM Comment: Reference range: ??Low HDL: ?? < 40 mg/dL ??Normal: ?40-60 mg/dL ??Desirable: > 60 mg/dL VIDYA 2001; 285(19):3547-0858 LDL Cholesterol 52 <=99 mg/dL CER NER MILLENNIUM Comment: Reference range: ?? Optimal: ?<100 mg/dL ?? Near Optimal/Above Optimal: ?? 100-129 mg/dL ?? Borderline high: ?130-159 mg/dL ?? High: ? 160-189 mg/dL ?? Very high: ?>ch=690 mg/dL VIDYA 2001: 285(19):9914-2972 Cholesterol/HDL Ratio 1.8 ratio CERNER MILLENNIUM Comment: A Cholesterol to HDL ratio below 4:1 is desirable. ??Studies suggest that increased CAD risk occurs at ratios above 5 for females and above 6 for men. ? [place] Heart Association ??(http://www.americanheart.org) ? Fiordaliza Int Med, 1994; 121:641 ? AM J Med, 1998; 105(1A):48S Blood specimen (specimen) 05/05/2014 4:01 AM EDT 05/05/2014 4:22 AM EDT Narrative Resulting Agency Comment Spec In Lab Timmy Ly MD CHEMISTRY ORDERABLES Performing Organization Address [facility] de Phone Number [facility] * Creatinine (05/05/2014 4:01 AM EDT) Creatinine 0.94 0.70 - 1.20 mg/dL [facility] naayaDIGN[facility] Comment: Please note that the pediatric reference intervals supplied above were not validated at [facility]. Results from pediatric patients should be interpreted in conjunction to the patient's age, height and muscle mass. Est Glomerular Filtration Rate 60 >=60 [facility] Comment: This estimated GFR (eGFR) value was [...] the following links into your internet browser. [email or web address] Blood specimen (specimen) 05/05/2014 4:01 AM EDT 05/05/2014 4:22 AM EDT Narrative Resulting Agency Comment Spec In Lab Timmy Ly MD CHEMISTRY ORDERABLES Performing Organization Address [facility] de Phone Number [facility] * BUN (05/05/2014 4:01 AM EDT) Blood Urea Nitrogen 16 8 - 18 mg/dL [facility] OreeIUM Blood specimen (specimen) 05/05/2014 4:01 AM EDT 05/05/2014 4:22 AM EDT Narrative Resulting Agency Comment Spec In Lab Timmy Ly MD CHEMISTRY ORDERABLES Performing Organization Address [facility] Co de Phone Number [facility] CARABALLOIUM * Electrolytes panel (05/05/2014 4:01 AM EDT) Sodium 140 135 - 145 mmol/L CERNER MILLENNIUM Potassium 4.2 3.5 - 5.0 mmol/L [...] In Lab Timmy Ly MD CHEMISTRY ORDERABLES [facility] * Cardiac Enzymes (05/05/2014 12:51 AM EDT) Pathologist [facility] [place] Troponin-T <0.03 <=0.03 ng/mL CERNER MILLENNIUM Comment: 0.03 ng/mL: Represents the 99th percentile upper reference limit for normals. >0.03 ng/mL: Elevated cardiac troponin T level indicative of myocardial damage. Diagnosis of acute, evolving or recent OH requires a typical rise and gradual fall [...] consensus document of the Joint Society of Cardiology/[place] College of Cardiology Committee for the redefinition of myocardial infarction. ??Journal of the [place] College of Cardiology 2000; 36: 959-969] Creatine Kinase 54 0 - 160 unit/L CERNER MILLENNIUM Blood specimen (specimen) 05/05/2014 12:51 AM EDT 05/05/2014 12:55 AM EDT Narrative Resulting Agency Comment Spec In Lab Timmy Ly MD CHEMISTRY ORDERABLES Performing Organization Address [facility] de Phone Number [facility] * Cardiac Enzymes (05/04/2014 7:13 PM EDT) Troponin-T <0.03 <=0.03 ng/mL [facility] Comment: 0.03 ng/mL: Represents the 99th percentile upper reference limit for normals. >0.03 ng/mL: Elevated cardiac troponin T level indicative of myocardial damage. Diagnosis of acute, evolving or recent OH requires a typical rise and gradual fall [...] consensus document of the Joint Society of Cardiology/[place] College of Cardiology Committee for the redefinition of myocardial infarction. ??Journal of the [place] College of Cardiology 2000; 36: 959-969] Creatine Kinase 53 0 - 160 unit/L [facility] Blood specimen (specimen) 05/04/2014 7:13 PM EDT 05/04/2014 7:26 PM EDT Narrative Resulting Agency Comment Spec In Lab Timmy Ly MD CHEMISTRY ORDERABLES Performing Organization Address [facility] de Phone Number [facility] * Cardiac Catheterization (05/04/2014 3:39 [...] Metabolic Panel (non-fasting) (05/04/2014 10:28 AM EDT) [facility] Glucose 87 60 - 199 mg/dL CERNER MILLENNIUM Comment:Diabetes: >=200 mg/d L plus symptoms Blood Urea Nitrogen 11 8 - 18 mg/dL CERNER MILLENNIUM Creatinine 0.87 0.70 - 1.20 mg/dL CERNER MILLENNIUM Comment: Please note that the pediatric reference intervals supplied above were not validated at [facility]. Results from pediatric patients should be interpreted [...] the following links into your internet browser. [email or web address] Blood specimen (specimen) 05/04/2014 10:28 AM EDT 05/04/2014 11:10 AM EDT Narrative Resulting Agency Comment Spec In Lab Timmy Ly MD CHEMISTRY ORDERABLES CERLISANDRA MILLENNIUM * Cardiac Enzymes (05/04/2014 10:28 AM EDT) Troponin-T <0.03 <=0.03 ng/mL CERNER MILLENNIUM Comment: 0.03 ng/mL: Represents the 99th percentile upper reference limit for normals. >0.03 ng/mL: Elevated cardiac troponin T level indicative of myocardial damage. Diagnosis of acute, evolving or recent OH requires a typical rise and gradual fall [...] consensus document of the Joint Society of Cardiology/[place] College of Cardiology Committee for the redefinition of myocardial infarction. ??Journal of the [place] College of Cardiology 2000; 36: 959-969] Creatine Kinase 62 0 - 160 unit/L [facility] Blood specimen (specimen) 05/04/2014 10:28 AM EDT 05/04/2014 11:10 AM EDT Narrative Resulting Agency Comment Spec In Lab Timmy Ly MD CHEMISTRY ORDERABLES Performing Organization Address [facility] Co de Phone Number [facility] * (ABNORMAL) APTT (05/04/2014 10:28 AM EDT) Partial Thromboplastin Time 59(H) 25 - 35 sec [facility] OROZCODIGN[facility] Comment: Recommended therapeutic PTT range for full dose unfractionated heparin is 80-114 seconds. Blood specimen (specimen) 05/04/2014 10:28 AM EDT 05/04/2014 11:10 AM EDT Narrative Resulting Agency Comment Spec In Lab Timmy Ly MD HEMATOLOGY ORDERABLE S Performing Organization Address [facility] de Phone Number [facility] * Prothrombin Time (05/04/2014 10:28 AM EDT) Prothrombin Time 14.2 12.5 - 15.5 sec [facility]ZCODIGN[facility]ENTERCARL Comment: [facility] Transfusion Committee Guidelines: INR less than 2.0, PTT less than OR equal to 43.5 seconds, or Fibrinogen greater than or equal to 100 mg/dl indicate adequate procoagulant activity for hemostasis in patients without underlying bleeding disorders. International Normalization Ratio 1.0 0.9 - 1.1 [facility] CARABALLOI[facility] Blood specimen (specimen) 05/04/2014 10:28 AM EDT 05/04/2014 11:10 AM EDT Narrative Resulting Agency Comment Spec In Lab Timmy Ly MD HEMATOLOGY ORDERABLE S Performing Organization Address [facility] Co de Phone Number [facility] * EKG 12 Lead (05/04/2014 10:03 AM EDT) Ventricular rate 55 BPM MUSE SYSTEM Atrial Rate 55 BPM MUSE SYSTEM P-R Interval 184 ms MUSE SYSTEM QRS Duration 132 ms MUSE SYSTEM Q-T Interval 496 ms MUSE SYSTEM QTC Calculated (Bezet) 474 ms MUSE SYSTEM Calculated P [place] 70 degrees MUSE SYSTEM Calculated R [place] -33 degrees MUSE SYSTEM Calculated T [place] 63 degrees MUSE SYSTEM INTERPRETATION Sinus bradycardia Left axis deviation Left bundle branch block Abnormal ECG No previous ECGs available Confirmed by MD CAMACHO SALVATORE ([id number]) on 05/05/2014 12:36:18 PM MUSE SYSTEM 05/04/2014 10:0 3 AM EDT 05/05/2014 12:36 PM EDT Timmy Ly MD ECG ORDERABLES MUSE SYSTEM documented in this encounter Visit Diagnoses Diagnosis Chest tightness or pressure- Primary Other chest pain Chest pain Chest pain, unspecified LBBB (left bundle branch block) Other left bundle branch block Chest tightness or pressure Other chest pain Nicotine dependence Tobacco use disorder Depression Depressive disorder, not elsewhere classified Fibromyalgia Mylagia and myositis, unspecified Carotid bruit Other symptoms involving cardiovascular system documented in this encounter Administered Medications Inactive Administered Medications - up to 3 most recent administrations Medication Order MAR Action Action Date Dose Rate Site acetaminophen (TYLENOL) tablet 650 mg 650 mg, Oral, EVERY 4 HOURS PRN, Starting on Thu05/04/14 at 1203, Until Thu05/05/14 at 1421, Pain, Maximum dose of acetaminophen is 4000 mg from all sources in 24 hours., Routine Given 05/04/2014 12:07 PM EDT 650 mg diaZEPam (VALIUM) tablet 5 mg 5 mg, Oral, ONCE, 1 dose, On Thu05/04/14 at 1030, Cath (Day of Procedure), Routine Given 05/04/2014 2:08 PM EDT 5 mg diphenhydrAMINE (BENADRYL) capsule 25 mg 25 mg, Oral, ONCE, 1 dose, On Thu05/04/14 at 1030, Cath (Day of Procedure), Routine Given 05/04/2014 2:07 PM EDT 25 mg diphenhydrAMINE/aluminum -magnesium hydroxide/lidocaine (BMX) 1:1:1 Oral Suspension 5 mL, Oral, 2 TIMES DAILY PRN, heart blackwell, Starting on Thu05/04/14 at 2041, Until Thu05/05/14 at 1421, Each [...] 8:45 AM EDT 650 Units/hr 13 mL/hr nicotine (NICODERM CQ) 14 mg/24 hr patch 14 mg 14 mg, Transdermal, Administer over 24 Hours, NIGHTLY, First dose (after last modification) on [facility] 05/04/14 at 2200, Until Discontinued, Routine Given 05/04/2014 10:16 PM EDT 14 mg nitroGLYcerin 50 mg/250 mL (200 mcg/mL) infusion 1 dose, Starting on [facility] 05/04/14 at 0829, Until [facility] 05/04/14 at 0845, HERLINDA ELAM: cabinet override [...] infusion 200 mL/hr, Intravenous, CONTINUOUS, Starting on [facility] 05/04/14 at 1030, Until Soumya 05/04/14 at [...] Procedure), Routine 1408 (Given - Provider: Amber Camejo RN) diphenhydrAMINE (BENADRYL) capsule 25 mg (COMPLETED) 25 mg, Oral, ONCE, 1 dose, On Soumya 05/04/14 at 1030, Cath (Day of Procedure), Routine 1407 (Given - Provider: Amber Camejo RN) gabapentin (NEURONTIN) capsule 600 mg (CANCELED) 600 mg, Oral, NIGHTLY, First dose (after last modification) on Soumya 05/04/14 at 2100, Until Discontinued, Routine 2153 (Given - Provider: Estrella Sommers RN) nicotine (NICODERM CQ) 14 mg/24 hr patch 14 mg (CANCELED)(Linked Group 1) 14 mg, Transdermal, Administer over 24 Hours, NIGHTLY, First dose (after last modification) on Soumya 05/04/14 at 2200, Until Discontinued, Routine 2216 (Given - Provider: Estrella Sommers RN) pantoprazole (PROTONIX) tablet 40 mg 40 mg, Oral, DAILY, First dose on Soumya 05/04/14 at 1200, Until Discontinued, Restricted to patients on clopidogrel (PLAVIX) who require a proton pump inhibitor 1200 (Not Given - Provider: Kayli Mccormack RN - Reason: Medication not available) 0830 (Given - Provider: Ellis A Rose, RN) sodium chloride 0.9 % flush 5 mL (CANCELED) 5 mL, Intravenous, EVERY 12 HOURS, First dose on Soumya 05/04/14 at 1030, Until Discontinued, Cath (Day of Procedure), Routine 1030 (Given - Provider: Kayli Mccormack, WINDY)2154 (Given - Provider: Estrella Sommers, RN) 0959 (Given - Provider: Ellis Rose RN) [...] 1822 1545 (New Bag - Provider: Jocelyn Churchill RN)1930 (Stopped - Provider: Estrella Sommers, WINDY) PRN Medication Order 05/03/2014 05/04/2014 05/05/2014 acetaminophen (TYLENOL) tablet 650 mg (CANCELED) 650 mg, Oral, EVERY 4 HOURS PRN, Starting on Soumya 05/04/14 at 1203, Until Thu05/05/14 at 1421, Pain, Maximum dose of acetaminophen is 4000 mg from all sources in 24 hours., Routine 1207 (Given - Provider: Kayli Mccormack RN) diphenhydrAMINE/aluminum-magnesium hydroxide/lidocaine (BMX) 1:1:1 Oral Suspension (CANCELED) 5 mL, Oral, 2 TIMES DAILY PRN, heart blackwell, Starting on Soumya 05/04/14 at 2041, Until Thu05/05/14 at 1421, Each 5mL contains equal parts of Maalox, Lidocaine, and Diphenhydramine 2152 (Given - Provider: Leonel Sommers RN) iohexol (OMNIPAQUE) 350 mg iodine/mL injection (CANCELED) ONCE PRN, Starting on Thu05/04/14 at 1538, Until Soumya 05/04/14 at 1538, Per Protocol, Cath (Intra-Procedure), Routine 1538 (Given - Provider: Pretty Collier) lidocaine (XYLOCAINE) 10 mg/mL (1 %) injection (CANCELED) ONCE PRN, Starting on Thu05/04/14 at 1458, Until Soumya 05/04/14 at 1538, Cath (Intra-Procedure), Routine 1458 (Given - Provider: Pretty Collier - Comment: right groin) No Frequency Medication Order 05/03/2014 05/04/2014 05/05/2014 heparin (porcine) 25,000 unit/500 mL (50 unit/mL) infusion (CANCELED) 1 dose, Starting on Thu05/04/14 at 0829, Until Thu05/04/14 at 1822, HERLINDA ELAM: cabinet override 0845 (Rate/Dose Verify - Provider: Kayli Mccormack, WINDY)1423 (Stopped - Provider: Amber Camejo RN) nitroGLYcerin 50 mg/250 mL (200 mcg/mL) infusion [...] Patch documented in this encounter Care Teams Leg Man Relationship Specialty Start Date End Date Raphael Dixon MD [address] [place] [address] PCP - General 05/04/14 07/23/22 documented as of this encounter
--- NOTE | 2024-06-14 07:30 | DI.MAMMO_ITS ---
Exam(s) MAMMO SCREENING EXAM: MAMMO SCREENING CLINICAL HISTORY: screening,z12.39. TECHNIQUE: Bilateral full field digital CC and MLO mammographic images were obtained with 3D tomosyn thesis and utilizing computer aided detection (CAD). COMPARISON: Prior mammograms were reviewed. FINDINGS: There has been no significant change in the appearance and distribution of the fibroglandular tissue. There are no CAD designations. There are no new spiculated masses nor malignant appearing microcalcification groups. There is no significant architectural distortion nor skin thickening-retraction. IMPRESSION: No radiographic evidence of malignancy. BI-RADS Category 1 - Negative Breast Density - Category B - Scattered areas of fibroglandular density Breast density Category C or D implies that the patient has dense breast tissue. Dense breast tissue can make it harder to find cancer on a mammogram. Dense breast tissue is also associated with an incr eased risk of breast cancer. This information about the result of the mammogram report was provided to the patient to raise their awareness. Use this report when you speak with the patient about their risks for breast cancer, which includes their family history. At that time, you may recommend additional screening tests (Ultrasoun d or MRI) as these tests may add significant information. A negative radiographic report should not delay biopsy if a dominant or clinically suspicious mass is present. Up to ten percent of cancers are not identified on mammography. A negative report may reinforce clinical impression. Adenosis and dense breasts may obscure an underlying neoplasm. False positive reports average 6 to 10%. Patient will receive a letter notifying them of these results.
== END ==
PROVIDERS: PCP Nurse Practitioner; Visit Provider Nurse Practitioner
DX: Z12.39 Encounter for other screening for malignant neoplasm of breast (principal); Z12.31 Encounter for screening mammogram for malignant neoplasm of breast
CPT/HCPCS: 77063; 77067

== ENCOUNTER 2024-06-27 09:29 | Emergency (ER) | payer MEDICARE, OTHER, SELFPAY ==
[2024-06-27] VITALS (63 sets, daily range): BP systolic 123–170; BP diastolic 64–71; PULSE 56–77; RESP 13–38; TEMP 36.7; O2SAT 94–99
--- NOTE | 2024-06-27 09:30 | DI.CT_ITS ---
Exam(s) CT ABDOMEN PELVIS W EXAM: CT ABDOMEN PELVIS W CLINICAL HISTORY: lower abd pain nausea vomiting. TECHNIQUE: Imaging Protocol: Axial computed tomography images with coronal and sagittal reformatted images were created and reviewed CONTRAST MATERIAL: Intravenous: Omnipaque 350 Contrast volume:100 ml Oral: / no COMPARISON: CT CT ABDOMEN PELVIS W from 06/19/2023 FINDINGS: ABDOMEN and PELVIS: Lung Bases: No acute findings. Interstitial changes. Liver: Normal density. No suspicious mass. Gallbladder and biliary tract: No radiodense calculus. No biliary dilation. Pancreas: Normal density. No abnormal calcifications or inflammatory process. No evidence of mass. Spleen: Normal. Kidneys: Parenchymal thinning of right kidney. Scattered tiny cysts.. No radiodense stones. No obst ructive uropathy. No suspicious masses seen. Adrenal glands: No masses seen. Vasculature: Abdominal aorta non-dilated. Severe atherosclerotic changes. Soft tissues: Unremarkable. Bladder: No gross wall thickening. No calculi.No focal mass. Bowel: No obstruction. Wall thickening of the descending and sigmoid colon, consistent with colitis . Appendix normal. Peritoneal cavity: No ascites. No focal collection. No mesenteric inflammatory response. Bones: Unremarkable for age. Reproductive organs: Status post hysterectomy. Lymph nodes: No pathologically enlarged lymph nodes. IMPRESSION:: Wall thickening of the descending and sigmoid colon suspicious for colitis. RADIATION DOSE DELIVERED: Total DLP DATA REPOSITORY: All CT scans at this facility are submitted to the National Radiology Data Registry (NRDR) Dose Index Registry (DIR) with the [employer] [place] [employer] (ACR). RADIATION OPTIMIZATION: All CT scans at this facility use at least one of these dose optimization te chniques: automated exposure control; mA and/or kV adjustment per patient size (includes targeted exa ms where dose is matched to clinical indication); or iterative reconstruction.
--- OUTSIDE RECORDS SUMMARY | 2024-06-27 09:43 | XMS_ITS | Encounter Summary ---
Author Organization On License [facility] [place] [address] Care Team Providers Care Scarfer Name Role Phone Veronica Meek DO Primary Care Provider +1- [phone] Encounter Details Date Type Department Care Team [...] 2:40 PM EDT Office Visit Dermatology at [facility] [address] [place] [address] Emmanuelle Yeboah MD [facility] [place] [address] documented as of this encounter Visit Diagnoses Not on filedocumented in this encounter Care Teams Scarfer Relationship Specialty Start Date End Date Veronica Meek DO [address] [facility] [place] [address] PCP - General Family Medicine 07/24/22 documented as of this encounter
--- OUTSIDE RECORDS SUMMARY | 2024-06-27 09:43 | XMS_ITS | Clinical Summary ---
Author Organization [facility] [place] [address] Care Team Providers Care Printing Sales Representative Name Role Phone Veronica Meek DO Primary Care Provider +1- [phone] Allergies Active Allergy Reactions Criticality Noted Date [...] Encounters Date Type Department Care Team Description 06/22/2024 Travel from Last 3 Months Family History [...] Dermatology at [facility] [address] [place] [address] Emmanuelle Yeboah MD [facility] [place] [address] Health Maintenance Due Date Last Done Comments [...] 2003 Bone Density Scan 2013 Covid-19 Vaccine (2022-24 season) 2023 Influenza (Flu) vaccine (1 o f 1 - Influenza standard series) 07/10/2024 Lipid Screening Discontinued 05/05/2014 Procedures Procedure Name Priority Date/Time Associated Diagnosis Comments LIPID PANEL (REFLEX DIRECT LDL) Routine 05/05/2014 4:01 AM EDT from Last 3 Months or Most Recently Relevant to Health Maintenance Results * Lipid panel (fasting) (05/05/2014 4:01 AM EDT) [facility] Signature Cholesterol, Total 153 <=199 mg/dL [facility] Comment: Recommendations of the NCEP Adult Treatment Panel for the following risk cutoff thresholds for the [place] population: Desirable: <200 mg/dL Borderline High: 200-239 mg/dL High: > or = 240 mg/dL Triglyceride 90 <=149 mg/dL [facility] Comment: Reference Range: Normal triglycerides: ??<150 mg/dL Borderline high: ??150-199 mg/dL High: ??200-499 mg/dL Very high: ??>ui=950 mg/dL VIDYA 2001; 285(19):1918-5524 HDL Cholesterol 83 >=40 mg/dL [facility] Comment: Reference range: ??Low HDL: ?? < 40 mg/dL ??Normal: ?40-60 mg/dL ??Desirable: > 60 mg/dL VIDYA 2001; 285(19):5655-9694 LDL Cholesterol 52 <=99 mg/dL [facility] Comment: Reference range: ?? Optimal: ?<100 mg/dL ?? Near Optimal/Above Optimal: ?? 100-129 mg/dL ?? Borderline high: ?130-159 mg/dL ?? High: ? 160-189 mg/dL ?? Very high: ?>xt=470 mg/dL VIDYA 2001: 285(19):8761-0906 Cholesterol/HDL Ratio 1.8 ratio [facility] Comment: A Cholesterol to HDL ratio below 4:1 is desirable. ??Studies suggest that increased CAD risk occurs at ratios above 5 for females and above 6 for men. ? [place] [employer] Association ??(http://www.americanheart.org) ? Fi[place] Int Med, 1994; 121:641 ? AM J Med, 1998; 105(1A):48S Blood specimen (specimen) 05/05/2014 4:01 AM EDT 05/05/2014 4:22 AM EDT Narrative Resulting Agency Comment Spec In Lab Timmy Ly MD CHEMISTRY ORDERABLES [facility] from Last 3 Months or Most Recently Relevant to Health Maintenance Advance Directives Documents on File Type Date Recorded Patient Funeral Car Driver Sita nicole Personal Funeral Car Driver 07/17/2023 10:29 AM henny hernandez Personal Funeral Car Driver 07/17/2023 10:28 AM skyla tay * Full Code (Latest Code Status on File) Date Activated Date Inactivated Comments 05/04/2014 8:39 PM 05/05/2014 2:21 PM Question Answer Comments Does patient have decision m aking capacity? Yes, order is based on Patient wishes. Care Teams Printing Sales Representative Relationship Specialty Start Date End Date Veronica Meek DO [address] [place] [address] PCP - General Family Medicine 07/24/22
--- OUTSIDE RECORDS SUMMARY | 2024-06-27 09:43 | XMS_ITS | Encounter Summary ---
Author Organization [facility] Address [address] [place] [address] Care Team Providers Care Embossing Press Operator Molded Goods Name Role Phone Unavailable Primary Care Provider Unavailabl e Encounter Details Date Type Department Care Team (Latest Contact Info) Description 07/07/2014 15:12 EDT - 07/07/2014 23:59 EDT Hospital Encounter [address] [address] Unknown, Provider, Discharge Disposition: Home or Self Care Social History Tobacco Use Types Packs/Day Years Used Date Smoking Tobacco: Never Assessed Sex and Gender Information Value Date Recorded Sex Assigned at Not on file Gender Identity Not on file Sexual Orientation Not on file documented as of this encounter Discharge Disposition Disposition Code Departure Means Destination Home or Self Senior Care documented in this encounter Plan of Treatment Not on file documented as of this encounter Visit Diagnoses Not on filedocumented in this encounter
--- OUTSIDE RECORDS SUMMARY | 2024-06-27 09:43 | XMS_ITS | Encounter Summary ---
Author Organization [facility] [place] [address] Care Team Providers Care Planner Internship Name Role Phone OscarVeronica ventura Myles CHRISTIANSEN Primary Care Provider +1- [phone] Encounter Details Date Type Department Care Team (Late st Contact Info) Description 07/24/2022 9:00 AM EDT Tech [place] [phone] Mg Jc PVD (peripheral vascular disease) with [...] Dermatology at [facility] [address] [place] [address] Emmanuelle Yeboah MD [facility] [address] [place] [place] [address] documented as of this encounter Procedures Procedure Name Priority Date/Time Associated Diagnosis Comments BONITA, LEGS, MULTIPLE LEVELS Routine 07/24/2022 8:58 AM EDT PVD (peripheral vascular disease) with claudication documented in this encounter Results * BONITA, legs, multiple levels (07/24/2022 8:58 AM EDT) VB Text Report Department: Vascular Surgery Lab Patient: [id number] (KERI BROUSSARD) CPT: 60373 Referring Physician: SHARMIN TREJO ?? Indications: hx of BL LE claudication, ? peripheral perfusion Diabetes mellitus: No Findings: Right ?Pressure (mm Hg) ?? BONITA ??Waveform ? Brachial Artery ?197 ? Dorsalis Pedis (Ankle) Artery ?110 ? 0.56 ??Biphasic ? Posterior Tibial (Ankle) Artery ??123 ? 0.62 ??Todd-Biphasic ?? Left ? Pressure (mm Hg) ?? [...] Trejo MD VASCULAR ORDERABLES Performing Organization Address City/State/[facility] Co de Phone Number VASCUBASE documented in this encounter Visit Diagnoses Diagnosis PVD (peripheral vascular disease) with claudication Peripheral vascular disease, unspecified documented in this encounter Care Teams Planner Internship Relationship Specialty Start Date End Date Veronica Meek DO [address] [place] [address] PCP - General Family Medicine 07/24/22 documented as of this encounter
--- OUTSIDE RECORDS SUMMARY | 2024-06-27 09:43 | XMS_ITS | Encounter Summary ---
[place] [address] Care Team Providers Care Dye House Helper Name Role Phone Veronica Meek Primary Care Provider +1- [phone] Encounter Details Date Type Department Care Team (Late st Contact Info) Description 07/10/2023 2:30 PM EDT Tech [place] [phone] Jocelyn Padron PVD (peripheral vascular disease) with [...] [facility] [address] [place] [address] Emmanuelle Yeboah MD [facility] [place] [address] documented as of this encounter Procedures Procedure Name Priority Date/Time Associated Diagnosis Comments BONITA, LEGS, MULTIPLE LEVELS Routine 07/10/2023 2:22 PM EDT PVD (peripheral vascular disease) with claudication documented in this encounter Results * BONITA, legs, multiple levels (07/10/2023 2:22 PM EDT) Pathologist [facility] VB Text Report Department: Vascular Surgery Lab Patient: [id number] (KERI BROUSSARD) CPT: 78292 Referring Physician: JESSU KAM APRN ?? Indications: Claudication ? Perfusion Diabetes mellitus: No Findings: Right ?Pressure (mm Hg) ?? BONITA ??Waveform ? Brachial Artery ?189 ? Dorsalis Pedis (Ankle) Artery ?122 ? 0.65 ??Dubois-Biphasic ?? Posterior Tibial (Ankle) Artery ??123 ? [...] unspecified documented in this encounter Care Teams Dye House Helper Relationship Specialty Start Date End Date Veronica Meek DO [address] [place] [address] PCP - General Family Medicine 07/24/22 documented as of this encounter
--- OUTSIDE RECORDS SUMMARY | 2024-06-27 09:43 | XMS_ITS | Encounter Summary ---
Author Organization [facility] Address [address] [place] [address] Care Team Providers Care Silverware Buffer Name Role Phone Unavailable Primary Care Provider Unavailabl e Encounter Details Date Type Department Care Team (Late st Contact Info) Description 04/09/2004 Results Only [facility] - Maple conversion [address] [place] [address] Jourdan Duarte MD [address] [place] [address] Social History Tobacco Use Types Packs/Day Years [...] ? KERI BROUSSARD ? Accession #: ? [id number] ? : ? 1950 (Age: 53) ??F [...] PATHOLOGY ORDERABLE [facility] [address] [place] [address] documented in this encounter Visit Diagnoses Not on filedocumented in this encounter
--- OUTSIDE RECORDS SUMMARY | 2024-06-27 09:43 | XMS_ITS | Encounter Summary ---
Author Organization [facility] [place] [address] Care Team Providers Care Project Drilling Engineer Name Role Phone Ayah Albrecht MD Primary Care Provider [phone] Reason for Referral * Diagnostic Test (Routine) - Closed Specialty Diagnoses / Procedures Referred By Contac t Referred To Contact Diagnoses PVD (peripheral vascular disease) with claudication Procedures BONITA, legs, multiple levels Shireen Fulton PA [facility] [place] [address] [facility] [address] [place] [address] Referral ID Status Reason Start Date Expiration Date V isits Requested Visits Authorized [id number] Closed Specialty Service Requested 07/23/2021 07/23/2022 1 1 Encounter Details Date Type Department Care Team (Late st Contact Info) Description 07/23/2021 10:30 AM EDT Office [place] [address] Shireen Fulton PA [facility] [place] [address] PVD (peripheral vascular disease) with [...] ? Posterior Tibial (Ankle) Artery ??96 ?0.59 ??Logan-Biphasic ? Left ? Pressure (mm Hg) ?? [...] 2:40 PM EDT Office Visit Dermatology at [facility] [address] [place] [address] Emmanuelle Yeboah MD [facility] [address] [place] [address] documented as of this encounter Results * BONITA, legs, multiple levels (07/24/2022 8:58 AM EDT) VB Text Report Department: Vascular Surgery Lab Patient: [id number] (KERI BROUSSARD) CPT: [id number] Referring Physician: SHARMIN OLIVIER ?? Indications: hx of BL LE claudication, ? peripheral perfusion Diabetes mellitus: No Findings: Right ?Pressure (mm Hg) ?? BONITA ??Waveform ? Brachial Artery ?197 ? Dorsalis Pedis (Ankle) Artery ?110 ? 0.56 ??Biphasic ? Posterior Tibial (Ankle) Artery ??123 ? 0.62 ??Logan-Biphasic ?? Left ? Pressure (mm Hg) ?? [...] Olivier MD VASCULAR ORDERABLES Performing Organization Address City/State/[facility] Co de Phone Number VASCUBASE documented in this encounter Visit Diagnoses Diagnosis PVD (peripheral vascular disease) with claudication Peripheral vascular disease, unspecified documented in this encounter Care Teams Project Drilling Engineer Relationship Specialty Start Date End Date Ayah Albrecht MD [address] [facility] [place] [place] [address] PCP - General 05/04/14 07/23/22 documented as of this encounter
--- OUTSIDE RECORDS SUMMARY | 2024-06-27 09:43 | XMS_ITS | Encounter Summary ---
Author Organization [facility] Address [address] [place] [address] Care Team Providers Care Corrosion Control Specialist Name Role Phone Unavailable Primary Care Provider Unavailabl e Encounter Details Date Type Department Care Team (Late st Contact Info) Description 11/25/2007 Results Only [facility] - Maple conversion [address] [place] [address] Jourdan Duarte MD [address] [place] [address] Social History Tobacco Use Types Packs/Day Years [...] ? KERI BROUSSARD ? Accession #: ? [id number] ? : ? 1950 (Age: 57) ??F [...] specimen is entirely submitted as (E). ??(Heidi Gamble)/[facility] End of Report CHAITANYA STANTON 11/25/2007 11/26/2007 9:1 8 EST Jourdan Duarte MD PATHOLOGY ORDERABLE S [facility] STANTON [address] [place] [address] documented in this encounter Visit Diagnoses Not on filedocumented in this encounter
--- OUTSIDE RECORDS SUMMARY | 2024-06-27 09:43 | XMS_ITS | Encounter Summary ---
Author Organization [facility] [place] [address] Care Team Providers Care Statistical Technician Name Role Phone Veronica Meek DO Primary Care Provider +1- [phone] Encounter Details Date Type Department Care Team [...] [facility] [address] [place] [address] Emmanuelle Yeboah MD [facility] [place] [address] documented as of this encounter Visit Diagnoses Not on filedocumented in this encounter Care Teams Statistical Technician Relationship Specialty Start Date End Date Veronica Meek DO [address] [place] [address] PCP - General Family Medicine 07/24/22 documented as of this encounter
--- OUTSIDE RECORDS SUMMARY | 2024-06-27 09:43 | XMS_ITS | Encounter Summary ---
Author Organization [facility] [place] [address] Care Team Providers Care Physics Teacher Name Role Phone Veronica Meek DO Primary Care Provider +1- [phone] Encounter Details Date Type Department Care Team [...] 2:40 PM EDT Office Visit Dermatology at [facility] [address] [place] [address] Emmanuelle Yeboah MD [facility] [address] [place] [place] [address] documented as of this encounter Visit Diagnoses Not on filedocumented in this encounter Care Teams Physics Teacher Relationship Specialty Start Date End Date Veronica Meek DO [address] [facility] [place] [place] [address] PCP - General Family Medicine 07/24/22 documented as of this encounter
--- OUTSIDE RECORDS SUMMARY | 2024-06-27 09:43 | XMS_ITS | Clinical Summary ---
Author Organization [facility] Address [address] [place] [address] Care Team Providers Care Cable Engineer Name Role Phone Davonte Dickson MD [...] COVID-19 Vaccine ( season) 2023 Care Teams Cable Engineer Relationship Specialty Start Date End Date Davonte Dickson MD PCP - General 07/13/14
--- OUTSIDE RECORDS SUMMARY | 2024-06-27 09:43 | XMS_ITS | Encounter Summary ---
[place] [address] Care Team Providers Care Software Design Analyst Name Role Phone OscarVeronica ventura Myles CHRISTIANSEN Primary Care Provider +1- [phone] Encounter Details Date Type Department Care Team (Late st Contact Info) Description 02/06/2023 1:40 PM EDT [facility] [address] [place] [address] Marian Calhoun MD [facility] [place] [address] Actinic keratoses; Seborrheic keratoses; Multiple nevi; Lentigines; [...] of and acting as a scribe for Marain Calhoun MD. I performed the above scribed service and agree with the accuracy of the documentation in this encounter. Reviewed and signed by: Marian Calhoun MD Dermatology [facility] Patient seen and evaluated with staff candle wrapper: Heidi Grace MD Dermatology [facility] * Davon Grace MD - [...] 2:40 PM EDT Office Visit Dermatology at [address] [place] [address] Emmanuelle Yeboah MD [facility] [place] [address] documented as of this encounter Visit Diagnoses Diagnosis Actinic keratoses Actinic keratosis Seborrheic keratoses Multiple nevi Benign neoplasm of skin, site unspecified Lentigines Other dyschromia Falcon angioma Nevus, non-neoplastic Seborrheic dermatitis Seborrheic dermatitis, unspecified Notalgia paresthetica Disturbance of skin sensation documented in this encounter Care Teams Software Design Analyst Relationship Specialty Start Date End Date Veronica Meek DO [address] [place] [address] PCP - General Family Medicine 07/24/22 documented as of this encounter
--- OUTSIDE RECORDS SUMMARY | 2024-06-27 09:43 | XMS_ITS | Encounter Summary ---
Author Organization [facility] Address [address] [place] [address] Care Team Providers Care Wharf Operator Name Role Phone Davonte Dickson MD Primary Care Provider U carolina Encounter Details Date Type Department Care Team (Late st Contact Info) Description 11/22/2021 Lab Requisition [facility] Pathology & Laboratory Medicine - [facility] [address] [place] [address] Liz Johnson, DO [address] [place] [address] Unspecified abdominal pain; Change in [...] management options, if applicable. 11/26/2021 17:[address] [facility] Final Diagnosis A. COLON, CECUM, BIOPSY: - Lymphocytic colitis. B. COLON, 80 CM, BIOPSY: - Lymphocytic colitis. C. COLON, 60 CM, BIOPSY: - Lymphocytic colitis. D. COLON, 30 CM, BIOPSY: - Lymphocytic colitis. E. RECTUM, BIOPSY: - Lymphocytic colitis. 11/26/2021 17:43 [facility] Attestation By the signature below, the attending physician certifies that they have 1) personally conducted a gross and/or microscopic examination of the described specimen(s), and/or personally interpreted the results of laboratory testing of the described specimen(s), and 2) personally rendered or confirmed the above diagnosis. 11/26/2021 17:43 [facility] at 1743 Clinical History Screening & changes in bowel habits; Dx: I hernia 11/26/2021 17:43 [facility] Gross Description A. Received in [...] E1. RUDDY CARD(ASCP) 11/25/2021 8:13 11/26/2021 17:43 [facility] Performing Lab [facility] 11/26/2021 17:43 [facility] Scanned Images 11/26/2021 17:43 [facility] Tissue SPECIMEN FROM RECTUM / [...] 15:53 EST Liz Johnson DO PATHOLOGY ORDERABLES [facility] [address] [place] [address] documented in this encounter Visit Diagnoses Diagnosis Unspecified abdominal pain Change in bowel habit documented in this encounter Care Teams Wharf Operator Relationship Specialty Start Date End Date Davonte Dickson MD PCP - General 07/13/14 documented as of this encounter
--- OUTSIDE RECORDS SUMMARY | 2024-06-27 09:43 | XMS_ITS | Encounter Summary ---
[place] [address] Care Team Providers Care Filter Tip Inspector Name Role Phone OscarVeronica ventura Primary Care Provider +1- [phone] Encounter Details Date Type Department Care Team (Late st Contact Info) Description 08/14/2023 Telephone [place] [phone] Alpa Ramirez RN Social History Tobacco Use [...] 2:40 PM EDT Office Visit Dermatology at [facility] [address] [place] [address] Emmanuelle Yeboah MD [facility] [address] [place] [address] documented as of this encounter Visit Diagnoses Not on filedocumented in this encounter Care Teams Filter Tip Inspector Relationship Specialty Start Date End Date Veronica Meek DO [address] [place] [address] PCP - General Family Medicine 07/24/22 documented as of this encounter
--- OUTSIDE RECORDS SUMMARY | 2024-06-27 09:43 | XMS_ITS | Encounter Summary ---
Author Organization [facility] [place] [address] Care Team Providers Care Head Orthopedic Team Physician Name Role Phone Veronica Meek DO Primary Care Provider +1- [phone] Encounter Details Date Type Department Care Team [...] 2:40 PM EDT Office Visit Dermatology at [facility] [address] [place] [address] Emmanuelle Yeboah MD [facility] [address] [place] [address] documented as of this encounter Visit Diagnoses Not on filedocumented in this encounter Care Teams Head Orthopedic Team Physician Relationship Specialty Start Date End Date Veronica Meek DO [address] [place] [address] PCP - General Family Medicine 07/24/22 documented as of this encounter
--- OUTSIDE RECORDS SUMMARY | 2024-06-27 09:43 | XMS_ITS | Encounter Summary ---
Author Organization [facility] Address [address] [place] [address] Care Team Providers Care Laborer General Name Role Phone Unavailable Primary Care Provider Unavailabl e Encounter Details Date Type Department Care Team (Late st Contact Info) Description 10/13/2002 Results Only [facility] conversion [address] [place] [address] Russell Lozano MD [address] [place] [address] Social History Tobacco Use Types Packs/Day Years [...] ? KERI BROUSSARD ? Accession #: ? [id number] ? : ? 1950 (Age: 52) ??F [...] these findings represent active Crohn's disease. ??(Dr. Bourgeois)/[facility] Document reviewed and electronically signed [...] Lozano MD PATHOLOGY ORDERABLES Performing Organization Address City/State/[facility] Co de Phone Number [facility] [address] [place] [address] documented in this encounter Visit Diagnoses Not on filedocumented in this encounter
--- OUTSIDE RECORDS SUMMARY | 2024-06-27 09:43 | XMS_ITS | Encounter Summary ---
[place] [address] Care Team Providers Care Senior Software Development Engineer Name Role Phone Veronica Meek DO Primary Care Provider +1- [phone] Reason for Referral * Diagnostic Test (Routine) - Authorized Specialty Diagnoses / Procedures Referred By Contac t Referred To Contact Diagnoses PVD (peripheral vascular disease) with claudication Procedures BONITA, legs, multiple levels Jasmyne Thompson ACCESS DATABASE DEVELOPER [facility] [place] [address] [facility] [address] [place] [phone] Referral ID Status Reason Start Date Expiration Date Visits Requested Visits Authorized [id number] Authorized Specialty Service Requested 07/16/2023 07/15/2024 1 1 * Diagnostic Test (Routine) - Closed Specialty Diagnoses / Procedures Referred By Contac t Referred To Contact Diagnoses Renal artery stenosis Procedures Duplex Study Renal Arteries, Bilat Jasmyne Thompson ACCESS DATABASE DEVELOPER [facility] [place] [address] [facility] [address] [place] [phone] Referral ID Status Reason Start Date Expiration Date V isits Requested Visits Authorized [id number] Closed Specialty Service Requested 07/16/2023 07/15/2024 1 1 Encounter Details Date Type Department Care Team (Late st Contact Info) Description 07/10/2023 3:00 PM EDT Office [place] [address] Jasmyne Thompson APRN [facility] [place] [place] [address] PVD (peripheral vascular disease) with claudication; Renal [...] findings of severe L RUPAL stenosis andB SURG TECH stenosis. As well as heavy calcification of [...] 189 Dorsalis Pedis (Ankle) Artery 122 0.65 [place]-Biphasic Posterior Tibial (Ankle) Artery 123 0.65 Biphasic [...] EDT Office Visit Dermatology at [facility] [address] [place] [address] Emmanuelle Yeboah MD [facility] [place] [address] documented as of this encounter Results * Duplex Study Renal Arteries, Bilat (08/13/2023 8:23 AM EDT) VB Text Report Department: Vascular Surgery Lab Patient: [id number] (KERI BROUSSARD) CPT: 56047 Referring Physician: JASMYNE THOMPSON ?? Phone: Indications: [...] artery documented in this encounter Care Teams Senior Software Development Engineer Relationship Specialty Start Date End Date Veronica Meek DO [address] [place] [address] PCP - General Family Medicine 07/24/22 documented as of this encounter
--- OUTSIDE RECORDS SUMMARY | 2024-06-27 09:43 | XMS_ITS | Encounter Summary ---
[place] [address] Care Team Providers Care Set Rider Name Role Phone MarybethVeronica anand Myles CHRISTIANSEN Primary Care Provider +1- [phone] Encounter Details Date Type Department Care Team (Late st Contact Info) Description 08/14/2023 Telephone [place]ascular [place] [phone] Dustin Walter RN Social History Tobacco Use [...] cessation was discussed. Shared with patient this song writer will get a message to Dr. Bates for her to weigh in on whetherher willingness to quit smoking impacts the decision of whether she is a good candidate to have a stent placed. documented in this encounter Plan of Treatment Upcoming Encounters Date Type Department Care Team (Late st Contact Info) Description 06/29/2024 2:40 PM EDT Office Visit Dermatology at [facility] [address] [place] [address] Emmanuelle Yeboah MD [facility] [address] [place] [place] [address] documented as of this encounter Visit Diagnoses Not on filedocumented in this encounter Care Teams Set Rider Relationship Specialty Start Date End Date Veronica Meek DO [address] [place] [address] PCP - General Family Medicine 07/24/22 documented as of this encounter
--- OUTSIDE RECORDS SUMMARY | 2024-06-27 09:43 | XMS_ITS | Encounter Summary ---
[place] [address] Care Team Providers Care Home Health Travel Pt Name Role Phone Ayah Albrecht MD Primary Care Provider [phone] Encounter Details Date Type Department Care Team (Late st Contact Info) Description 06/25/2021 Orders Only [place] [address] Shireen Fulton PA [facility] [place] [address] Social History Tobacco Use Types Packs/Day Years [...] 2:40 PM EDT [facility] [address] [place] [address] Emmanuelle Yeboah MD [facility] [address] MAN[address] [place] [address] documented as of this encounter Visit Diagnoses Not on filedocumented in this encounter Care Teams Home Health Travel Pt Relationship Specialty Start Date End Date Ayah Albrecht MD [address] [place] [address] PCP - General 05/04/14 07/23/22 documented as of this encounter
--- OUTSIDE RECORDS SUMMARY | 2024-06-27 09:43 | XMS_ITS | Encounter Summary ---
[place] [address] Care Team Providers Care Fitter Mechanic Name Role Phone AuraVeronica sánchez Myles CHRISTIANSEN Primary Care Provider [phone]- [phone] Encounter Details Date Type Department Care Team (Late st Contact Info) Description 03/23/2024 10:20 AM EDT Office Visit Dermatology at [facility] [address] [place] [address] Emmanuelle Yeboah MD [facility] [address] MAN[address] FALL-[place] [address] Lichen sclerosus; Vulvar atrophy; Seborrheic dermatitis; Multiple [...] The amount needed may be what onecan hot die picker with a toothpick. At the start [...] or rubbing) and put plain white petrolatum CORRECTION (Vaseline) and/or the prescribed ointment on the [...] Labia Chronicles: [email or web address] Makenna Contreras MD on Quick[employer] How To - Topical Corticosteroids: Some common [...] changes, irritants, or certain skin conditions. Painful [place]: If you are experiencing pain or discomfort [...] provider before starting any new medication. Using [employer] to Access Affordable Topical Estrogen [employer] is a valuable resource that can help you obtain your prescribed topical estrogen at a more affordable perry. [employer] provides discounts and coupons for a wide range of medications, making them accessible to individuals without insurance coverage or with high copayments. Here's how to use [employer]: Visit the Website or Mc: Go to www.Halalati or download the [employer] mc on your smartphone or tablet. Search for Your Medication: Enter the name of the topical estrogen prescribed by your healthcare provider in the search bar. Compare Prices: [employer] will display a list of pharmacies in your area along with the discounted prices available. Compare the prices to find the most affordable option. Get a Coupon: Select the desired pharmacy and dosage, then click on Get Free Coupon. You can either print the coupon or save it on your smartphone. Present the Coupon: Show the coupon to the pharmacist when you hot die picker your prescription. They willapply the discount to ensure you receive the reduced perry. Remember, prices may vary between pharmacies, so it's beneficial to compare different options available through [employer] to find the best perry for your [...] 1 year for FSE [x]Note routed to construction secretary [x]Recall placed in scheduling system []Appointment scheduled at checkout Scribe attestation: Jesus William has performed the documentation for this encounter in the presence of and acting as a scribe for Emmanuelle Yeboah MD. I performed the above scribed service and agree with the accuracy of the documentation in this encounter. Reviewed and signed by: Emmanuelle Yeboah MD Dermatology [facility] Patient seen and evaluated with staff accounts payables clerk: Tashi Shankar MD Dermatology [facility] * Tashi Shankar MD - 03/23/2024 10:20 [...] them as documented. TASHI SHANKAR MD Staff Offset Platemaker Department of Dermatology [facility] documented in this encounter Plan of Treatment Upcoming Encounters Date Type Department Care Team (Late st Contact Info) Description 06/29/2024 2:40 PM EDT Office Visit Dermatology at [facility] [address] [place] [address] Emmanuelle Yeboah MD [facility] DR MAN[address] FALL-[place] [address] documented as of this encounter Visit Diagnoses Diagnosis Lichen sclerosus Circumscribed scleroderma Vulvar atrophy Atrophy of vulva Seborrheic dermatitis Seborrheic dermatitis, unspecified Multiple melanocytic nevi Seborrheic keratoses Lentigines Other dyschromia Falcon angioma Nevus, non-neoplastic Telangiectasias Other and unspecified capillary diseases documented in this encounter Care Teams Fitter Mechanic Relationship Specialty Start Date End Date Veronica Meek DO [address] [place] [address] PCP - General Family Medicine 07/24/22 documented as of this encounter
--- OUTSIDE RECORDS SUMMARY | 2024-06-27 09:43 | XMS_ITS | Encounter Summary ---
[place] [address] Care Team Providers Care Manager Of Project Management Name Role Phone Veronica Meek DO Primary Care Provider [phone]- [phone] Reason for Referral * Diagnostic Test (Routine) - Closed Specialty Diagnoses / Procedures Referred By Contac t Referred To Contact Diagnoses PVD (peripheral vascular disease) with claudication Procedures BONITA, legs, multiple levels Jesus Kam APRN [facility] [place] [address] [facility] Vascular Lab [address], [place] [address] Referral ID Status Reason Start Date Expiration Date V isits Requested Visits Authorized [id number] Closed Specialty Service Requested 07/24/2022 07/24/2023 1 1 Encounter Details Date Type Department Care Team (Late st Contact Info) Description 07/24/2022 9:30 AM EDT Office Visit [place] [address] Jesus Kam APRN [facility] [place] [address] PVD (peripheral vascular disease) with [...] this encounter Progress Notes * Jesus Kam, AIRCRAFT INSTRUMENT MECHANIC - 07/24/2022 9:30 AM EDT Vascular Follow-Up [...] Posterior Tibial (Ankle) Artery ??123 ? 0.62 ??[place]-Biphasic ? Left ? Pressure (mm Hg) ?? [...] 2:40 PM EDT Office Visit Dermatology at [facility] [address] [place] [address] Emmanuelle Yeboah MD [facility] DR [address] [place] [address] documented as of this encounter Results * BONITA, legs, multiple levels (07/10/2023 2:22 PM EDT) [facility] Text Report Department: Vascular Surgery Lab Patient: [id number] (KERI BROUSSARD) CPT: 86217 Referring Physician: JESUS KAM APRN ?? Indications: Claudication ? Perfusion Diabetes mellitus: No Findings: Right ?Pressure (mm Hg) ?? BONITA ??Waveform ? Brachial Artery ?189 ? Dorsalis Pedis (Ankle) Artery ?122 ? 0.65 ??[place]-Biphasic ?? Posterior Tibial (Ankle) Artery ??123 ? [...] [facility] 07/10/2023 2:22 PM EDT Jesus Kam AIRCRAFT INSTRUMENT MECHANIC VASCULAR ORDERABLE S [facility] documented in this encounter Visit Diagnoses Diagnosis PVD (peripheral vascular disease) with claudication Peripheral vascular disease, unspecified documented in this encounter Care Teams Manager Of Project Management Relationship Specialty Start Date End Date Veronica Meek DO [address] [facility] [place] [address] PCP - General Family Medicine 07/24/22 documented as of this encounter
--- OUTSIDE RECORDS SUMMARY | 2024-06-27 09:43 | XMS_ITS | Encounter Summary ---
Author Organization [facility] [place] [address] Care Team Providers Care Advisory Application Developer Name Role Phone Ayah Albrecht MD Primary Care Provider [phone] Encounter Details Date Type Department Care Team (Late st Contact Info) Description 07/23/2021 10:00 AM EDT Tech Visit [place] [address] Justine Delgado [place] PVD (peripheral vascular disease) [...] 2:40 PM EDT Office Visit Dermatology at [facility] [address] [place] [address] Emmanuelle Yeboah MD [facility] [place] [address] documented as of this encounter Procedures Procedure Name Priority Date/Time Associated Diagnosis Comments BONITA, LEGS, MULTIPLE LEVELS Routine 07/23/2021 9:51 AM EDT PVD (peripheral vascular disease) with claudication documented in this encounter Results * BONITA, legs, multiple levels (07/23/2021 9:51 AM EDT) VB Text Report Department: Vascular Surgery Lab Patient: [id number] (KERI BROUSSARD) CPT: 38224 ICD10: I77.1;I73.9 Referring Physician: BOAZ BAUTISTA ?? Indications: ??Claudication, known PAD. ??? change in ABIs. Diabetes mellitus: No ICD10 Diagnosis Code: I73.9 Findings: Right ?Pressure (mm Hg) ?? BONITA ??Waveform ? Brachial Artery ?161 ? Dorsalis Pedis (Ankle) Artery ?88 ?0.54 ??Monophasic ? Posterior Tibial (Ankle) Artery ??96 ?0.59 ??[place]-Biphasic ?? Left ? Pressure (mm Hg) ?? [...] Bautista MD VASCULAR ORDERABLES Performing Organization Address City/State/[facility] Co de Phone Number [facility] documented in this encounter Visit Diagnoses Diagnosis PVD (peripheral vascular disease) with claudication Peripheral vascular disease, unspecified documented in this encounter Care Teams Advisory Application Developer Relationship Specialty Start Date End Date Ayah Albrecht MD [address] [place] [address] PCP - General 05/04/14 07/23/22 documented as of this encounter
--- OUTSIDE RECORDS SUMMARY | 2024-06-27 09:43 | XMS_ITS | Encounter Summary ---
Author Organization [facility] Address [address] [place] [address] Care Team Providers Care Vender Name Role Phone Davonte Dickson MD Primary Care Provider U carol[place] Encounter Details Date Type Department Care Team (Late st Contact Info) Description 12/24/2021 Lab Requisition [facility] Pathology & Laboratory Medicine - [facility] [address] [place], [place] [address] Outr Resulting Lab, Provider Social History Tobacco [...] 10 - 291 ng/mL 12/25/2021 9:48 EST [facility] Blood VENOUS BLOOD / Unknown 12/24/2021 10:43 EST 12/24/2021 21:35 EST Provider Outr Resulting Lab CHEMISTRY & BLOOD GAS ORDERABLES [facility] [address] [place] [address] documented in this encounter Visit Diagnoses Not on filedocumented in this encounter Care Teams Vender Relationship Specialty Start Date End Date Davonte Dickson MD PCP - General 07/13/14 documented as of this encounter
--- OUTSIDE RECORDS SUMMARY | 2024-06-27 09:43 | XMS_ITS | Encounter Summary ---
Author Organization [facility] Address [address] [place] [address] Care Team Providers Care Public Policy Coordinator Name Role Phone Unavailable Primary Care Provider Unavailabl e Encounter Details Date Type Department Care Team (Late st Contact Info) Description 10/07/2001 Results Only [facility] conversion [address] [place] [address] Veronica Diaz, HELGA Social History Tobacco Use [...] ? KERI BROUSSARD ? Accession #: ? [id number] : ? 1950 (Age: 51) ??F ?Collect [...] NP PATHOLOGY ORDERABLES [facility] [address] [place] [address] documented in this encounter Visit Diagnoses Not on filedocumented in this encounter
--- OUTSIDE RECORDS SUMMARY | 2024-06-27 09:43 | XMS_ITS | Encounter Summary ---
Author Organization [facility] Address [address] [place] [address] Care Team Providers Care Clinical Trial Coordinator Name Role Phone Unavailable Primary Care Provider Unavailabl e Encounter Details Date Type Department Care Team (Late st Contact Info) Description 09/30/2000 Results Only [facility] conversion [address] [place] [address] Veronica Diaz, HELGA Social History Tobacco Use [...] ? KERI BROUSSARD ? Accession #: ? [id number] : ? 1950 (Age: 50) ??F ?Collect Date: ? 09/30/2000 Location: ? [facility] ? Receive Date: ? 10/06/2000 Provider: ?VERONICA DIAZ EXPRESS CLERK Copy to: ? Specimen/Source: ?ThinPrep Pap Test, [...] NP PATHOLOGY ORDERABLES [facility] [address] [place] [address] documented in this encounter Visit Diagnoses Not on filedocumented in this encounter
--- OUTSIDE RECORDS SUMMARY | 2024-06-27 09:43 | XMS_ITS | Encounter Summary ---
Author Organization [facility] Address [address] [place] [address] Care Team Providers Care Maintenance Department Technician Name Role Phone Davonte Dickson MD Primary Care Provider U car[place] Encounter Details Date Type Department Care Team (Late st Contact Info) Description 04/15/2022 Lab Requisition [facility] Pathology & Laboratory Medicine - [facility] [address] [place], [place] [address] Outr Resulting Lab, Provider Social History Tobacco [...] Lyme Ab Negative Negative 04/16/2022 9:56 EDT [facility] Blood VENOUS BLOOD / Unknown 04/15/2022 10:50 EDT 04/15/2022 21:37 EDT Provider Outr Resulting Lab IMMUNOLOGY A ND SEROLOGY ORDERABLES [facility] [address] [place] [address] documented in this encounter Visit Diagnoses Not on filedocumented in this encounter Care Teams Maintenance Department Technician Relationship Specialty Start Date End Date Davonte Dickson MD PCP - General 07/13/14 documented as of this encounter
--- OUTSIDE RECORDS SUMMARY | 2024-06-27 09:43 | XMS_ITS | Encounter Summary ---
[place] [address] Care Team Providers Care Steel Chipper Name Role Phone OscarVeronica ventura Primary Care Provider [phone] Encounter Details Date Type Department Care Team (Late st Contact Info) Description 08/18/2023 Telephone [place] [address] Dustin Walter RN Social History Tobacco Use [...] 2:40 PM EDT [facility] [address] [place] [address] Emmanuelle Yeboah MD [facility] [address] [place] [address] documented as of this encounter Visit Diagnoses Not on filedocumented in this encounter Care Teams Steel Chipper Relationship Specialty Start Date End Date Veronica Meek DO [address] [place] [address] PCP - General Family Medicine 07/24/22 documented as of this encounter
--- OUTSIDE RECORDS SUMMARY | 2024-06-27 09:43 | XMS_ITS | Encounter Summary ---
Author Organization [facility] [place] [address] Care Team Providers Care Wood Heel Finisher Name Role Phone Veronica Meek DO Primary Care Provider +1- [phone] Reason for Visit * Diagnostic Test (Routine) - Closed Specialty Diagnoses / Procedures Referred By Contac t Referred To Contact Diagnoses Renal artery stenosis Procedures Duplex Study Renal Arteries, Jasmyne Lopez APRN [facility] [place] [address] [facility] [address] [address] Referral ID Status Reason Start Date Expiration Date V isits Requested Visits Authorized [id number] Closed Specialty Service Requested 07/16/2023 07/15/2024 1 1 Encounter Details Date Type Department Care Team (Late st Contact Info) Description 08/13/2023 8:30 AM EDT Tech [place] [address] Thompson Rodriguez, RVT Renal artery [...] 2:40 PM EDT Office Visit Dermatology at [facility] [address] [place] [address] Emmanuelle Yeboah MD [facility] [address] [place] [address] documented as of this encounter Procedures Procedure Name Priority Date/Time Associated Diagnosis Comments RENAL DUPLEX COMPLETE Routine 08/13/2023 8:23 AM EDT Renal artery stenosis documented in this encounter Results * Duplex Study Renal Arteries, Bilat (08/13/2023 8:23 AM EDT) VB Text Report Department: Vascular Surgery Lab Patient: [id number] (KERI BROUSSARD) CPT: 23743 Referring Physician: JASMYNE THOMPSON ?? Phone: Indications: [...] artery documented in this encounter Care Teams Wood Heel Finisher Relationship Specialty Start Date End Date Veronica Meek DO [address] [place] [address] PCP - General Family Medicine 07/24/22 documented as of this encounter
--- OUTSIDE RECORDS SUMMARY | 2024-06-27 09:43 | XMS_ITS | Encounter Summary ---
Author Organization [facility] [place] [address] Care Team Providers Care Diesel Mechanic Name Role Phone Veronica Meek DO Primary Care Provider +1- [phone] Encounter Details Date Type Department Care Team (Latest Contact Info) Description 06/22/2024 Travel Social History Tobacco Use Types Packs/Day [...] 2:40 PM EDT Office Visit Dermatology at [facility] [address] [place] [address] Emmanuelle Yeboah MD [facility] [place] [address] documented as of this encounter Visit Diagnoses Not on filedocumented in this encounter Care Teams Diesel Mechanic Relationship Specialty Start Date End Date Veronica Meek DO [address] [facility] [place] [address] PCP - General Family Medicine 07/24/22 documented as of this encounter
--- OUTSIDE RECORDS SUMMARY | 2024-06-27 09:43 | XMS_ITS | Referral Summary ---
Author Organization [facility] Address [address] [place] [address] Care Team Providers Care Special Tester Name Role Phone Davonte Dickson MD Primary Care Provider U navailable Social History Tobacco Use Types Packs/Day Years Used Date Smoking Tobacco: Never Assessed Sex and Gender Information Value Date Recorded Sex Assigned at Not on file Gender Identity Not on file Sexual Orientation Not on file Plan of Treatment Not on file Care Teams Special Tester Relationship Specialty Start Date End Date Davonte Dickson MD PCP - General 07/13/14
--- OUTSIDE RECORDS SUMMARY | 2024-06-27 09:43 | XMS_ITS | Encounter Summary ---
Author Organization [facility] [place] [address] Care Team Providers Care Pasteurizing Machine Operator Name Role Phone Veronica Meek DO Primary Care Provider +1- [phone] Encounter Details Date Type Department Care Team [...] 2:40 PM EDT Office Visit Dermatology at [facility] [address] [place] [address] Emmanuelle Yeboah MD [facility] [address] [place] [address] documented as of this encounter Visit Diagnoses Not on filedocumented in this encounter Care Teams Pasteurizing Machine Operator Relationship Specialty Start Date End Date Veronica Meek DO [address] [place] [address] PCP - General Family Medicine 07/24/22 documented as of this encounter
--- OUTSIDE RECORDS SUMMARY | 2024-06-27 09:43 | XMS_ITS | Encounter Summary ---
Author Organization [facility] [place] [address] Care Team Providers Care Parole Agent Name Role Phone Veronica Meek DO Primary Care Provider +1- [phone] Encounter Details Date Type Department Care Team (Late st Contact Info) Description 06/19/2023 Ancillary Procedure [place] [id number] Veronica Meek DO [address] [place], [place] [id number] Social History Tobacco Use Types Packs/Day Years [...] 2:40 PM EDT Office Visit Dermatology at [facility] [address] [place] [address] Emmanuelle Yeboah MD [facility] [place] [address] documented as of this encounter Procedures Procedure Name Priority Date/Time Associated Diagnosis Comments FILM LIBRARY STORAGE ONLY CT ABDOMEN AND PELVIS Routine 06/19/2023 12:00 AM EDT documented in this encounter Results * Film Library- Storage Only CT Abdomen & Pelvis (06/19/2023 12:00 AM EDT) Narrative [facility] - 06/27/2023 3:52 AM EDT This exam is auto-finalizing. It's purpose is for storage only. Veronica Meek DO IMG FILM LIBRARY O RDERABLES [place], [place] documented in this encounter Visit Diagnoses Not on filedocumented in this encounter Care Teams Parole Agent Relationship Specialty Start Date End Date Veronica Meek DO [address] [place] [address] PCP - General Family Medicine 07/24/22 documented as of this encounter
--- OUTSIDE RECORDS SUMMARY | 2024-06-27 09:43 | XMS_ITS | Encounter Summary ---
Author Organization [facility] [place] [address] Care Team Providers Care Maintenance Planning Clerk Name Role Phone Veronica Meek DO Primary Care Provider +1- [phone] Encounter Details Date Type Department Care Team [...] Dermatology at [facility] [address] [place] [address] Emmanuelle Yeboah MD [facility] [address] [place] [address] documented as of this encounter Visit Diagnoses Not on filedocumented in this encounter Care Teams Maintenance Planning Clerk Relationship Specialty Start Date End Date Veronica Meek DO [address] [place] [address] PCP - General Family Medicine 07/24/22 documented as of this encounter
--- OUTSIDE RECORDS SUMMARY | 2024-06-27 09:43 | XMS_ITS | Encounter Summary ---
Author Organization [facility] Address [address] [place] [address] Care Team Providers Care Superintendent Nonselling Name Role Phone Unavailable Primary Care Provider Unavailabl e Encounter Details Date Type Department Care Team (Late st Contact Info) Description 07/07/2014 Results Only [facility] Laboratory Services - [facility] ([facility]) [address] [place], [place] [address] Anish Culver, DO [address] [place] [address] Social History Tobacco Use Types Packs/Day Years [...] ? KERI BROUSSARD ? Accession #: ? [id number] ? : ? 1950 (Age: 63) ??F [...] DO PATHOLOGY ORDERABLES [facility] [address] [place] [address] documented in this encounter Visit Diagnoses Not on filedocumented in this encounter
--- OUTSIDE RECORDS SUMMARY | 2024-06-27 09:43 | XMS_ITS | Encounter Summary ---
Author Organization [facility] Address [address] [place] [address] Care Team Providers Care Net Front End Developer Name Role Phone Davonte Dickson MD Primary Care Provider U bettyernie Encounter Details Date Type Department Care Team (Late st Contact Info) Description 06/10/2023 Lab Requisition [facility] Pathology & Laboratory Medicine - [facility] [address] [place] [address] Yury Kendrick MD [address] [place] [address] Abdominal distension (gaseous); Epigastric pain; [...] management options, if applicable. 06/12/2023 11:26 EDT [facility] Final Diagnosis A. DUODENUM, BIOPSY: - Duodenal mucosa with no significant diagnostic abnormalities. B. STOMACH, ANTRUM, BIOPSY: - Gastric fundic mucosa with no significant diagnostic abnormalities. - Negative for Helicobacter pylori on H&E stained sections. C. GASTROESOPHAGEAL JUNCTION, BIOPSY: - Squamocolumnar mucosa with mild reactive changes. - Negative for intestinal metaplasia and dysplasia. 06/12/2023 11:26 [facility] Attestation By the signature below, the attending physician certifies that they have 1) personally conducted a gross and/or microscopic examination of the described specimen(s), and/or personally interpreted the results of laboratory testing of the described specimen(s), and 2) personally rendered or confirmed the above diagnosis. 06/12/2023 11:26 [facility] at [address] Clinical History Epigastric pain, GERD, bloating, gastritis, duodenitis 06/12/2023 11:26 [facility] Gross Description A. [...] C1. Laura Lea 06/11/2023 9:27 06/12/2023 11:26 [facility] Performing Lab [facility] 11:26 [facility] Scanned Images 06/12/2023 11:26 [facility] Tissue ENTIRE ESOPHAGUS / Unknown 06/10/2023 9:48 EDT 06/10/2023 19:02 EDT Tissue specimen (specimen) STOMACH STRUCTURE / Unknown 06/10/2023 9:48 EDT 06/10/2023 19:02 EDT Tissue specimen (specimen) ESOPHAGEAL STRUCTURE / Unknown 06/10/2023 9:48 EDT 06/10/2023 19:02 EDT Yury Kendrick MD PATHOLOGY ORDERA MICHAEL [place] Organization Address City/State/ZIP Co de Phone Number [facility] [address] [place] [address] documented in this encounter Visit Diagnoses Diagnosis Abdominal distension (gaseous) Flatulence, eructation, and gas pain Epigastric pain Abdominal pain, epigastric Gastro-esophageal reflux disease without esophagitis Esophageal reflux documented in this encounter Care Teams Net Front End Developer Relationship Specialty Start Date End Date Davonte Dickson MD PCP - General 07/13/14 documented as of this encounter
--- OUTSIDE RECORDS SUMMARY | 2024-06-27 09:43 | XMS_ITS | Encounter Summary ---
Author Organization [facility] [place] [address] Care Team Providers Care Pocket Stitcher Name Role Phone Veronica Meek DO Primary Care Provider +1- [phone] Encounter Details Date Type Department Care Team [...] 2:40 PM EDT Office Visit Dermatology at [facility] [address] [place] [address] Emmanuelle Yeboah MD [facility] [place] [address] documented as of this encounter Visit Diagnoses Not on filedocumented in this encounter Care Teams Pocket Stitcher Relationship Specialty Start Date End Date Veronica Meek DO [address] [place] [address] PCP - General Family Medicine 07/24/22 documented as of this encounter
--- OUTSIDE RECORDS SUMMARY | 2024-06-27 09:43 | XMS_ITS | Encounter Summary ---
Author Organization [facility] Address [address] [place] [address] Care Team Providers Care Warpman Name Role Phone Davonte Dickson MD Primary Care Provider Willie figueroa Encounter Details Date Type Department Care Team (Late st Contact Info) Description 04/12/2022 Lab Requisition [facility] Pathology & Laboratory Medicine - [facility] [address] [place], [place] [address] Outr Resulting Lab, Provider Social History Tobacco [...] Outr Resulting Lab MICROBIOLOGY - GENERAL ORDERABLES [facility] [address] [place] [address] * COVID-19 TESTING (04/12/2022 10:15 EDT) COVID-19 rt-PCR Result Negative Negative 04/14/2022 14:43 EDT [facility] Comment: This test has [...] was performed using the aaron SARS-CoV-2 assay ([employer] on the Aaron 6800 System Performing Lab Aaron [address] [facility] Lab 04/14/2022 14:43 EDT [facility] Swab 04/12/2022 10:1 5 EDT 04/13/2022 16:48 EDT Provider Outr Resulting Lab MICROBIOLOGY - GENERAL ORDERABLES [facility] [address] [place] [address] documented in this encounter Visit Diagnoses Not on filedocumented in this encounter Care Teams Warpman Relationship Specialty Start Date End Date Davonte Dickson MD PCP - General 07/13/14 documented as of this encounter
--- OUTSIDE RECORDS SUMMARY | 2024-06-27 09:43 | XMS_ITS | Encounter Summary ---
Author Organization [place] [id number] Care Team Providers Care Face Hardener Name Role Phone Veronica Meek DO Primary Care Provider +1- [phone] Reason for Referral * Diagnostic Test (Routine) - Authorized Specialty Diagnoses / Procedures Referred By Contac t Referred To Contact Diagnoses Renal artery stenosis Procedures Duplex Study Renal Arteries, Bilat Jocelyn Bates MD [facility] [place] [address] [facility] [address] [place] [phone] Referral ID Status Reason Start Date Expiration Date Visits Requested Visits Authorized [id number] Authorized Specialty Service Requested 08/13/2023 08/12/2024 1 1 * Diagnostic Test (Routine) - Authorized Specialty Diagnoses / Procedures Referred By Contac t Referred To Contact Diagnoses Atherosclerosis of lower extremity with claudication Procedures BONITA, legs, multiple levels Jocelyn Bates MD [facility] [address] [facility] [address] [place] [phone] Referral ID Status Reason Start Date Expiration Date Visits Requested Visits Authorized [id number] Authorized Specialty Service Requested 08/13/2023 08/12/2024 1 1 Encounter Details Date Type Department Care Team (Late st Contact Info) Description 08/13/2023 9:30 AM EDT Office Visit [place] [address] Jocelyn Bates MD [facility] [place] [address] Atherosclerosis of lower extremity with claudication; Renal [...] Text Report Department: Vascular Surgery Lab Patient: [id number] (KERI BROUSSARD) CPT: 47028 Referring Physician: BORIS THOMPSON Phone: Indications: renal [...] 189 Dorsalis Pedis (Ankle) Artery 122 0.65 [place]-Biphasic Posterior Tibial (Ankle) Artery 123 0.65 Biphasic [...] artery. Stenosis of the L RUPAL. Bilateral FORESTRY SUPPORT SPECIALIST stenoses. R SFA occluded at the origin. [...] at [facility] [address] [place] [address] Emmanuelle Yeboah MD [facility] [address] [place] [place] [address] documented as of this encounter Visit Diagnoses Diagnosis Atherosclerosis of lower extremity with claudication Renal artery stenosis Atherosclerosis of renal artery documented in this encounter Care Teams Face Hardener Relationship Specialty Start Date End Date Veronica Meek DO [address] [place] [address] PCP - General Family Medicine 07/24/22 documented as of this encounter
--- OUTSIDE RECORDS SUMMARY | 2024-06-27 09:43 | XMS_ITS | Encounter Summary ---
Author Organization [facility] [place] [address] Care Team Providers Care Dietitian Name Role Phone Veronica Meek DO Primary Care Provider +1- [phone] Encounter Details Date Type Department Care Team [...] 2:40 PM EDT Office Visit Dermatology at [facility] [address] [place] [address] Emmanuelle Yeboah MD [facility] [place] [address] documented as of this encounter Visit Diagnoses Not on filedocumented in this encounter Care Teams Dietitian Relationship Specialty Start Date End Date Veronica Meek DO [address] [facility] [place] [address] PCP - General Family Medicine 07/24/22 documented as of this encounter
--- OUTSIDE RECORDS SUMMARY | 2024-06-27 09:44 | XMS_ITS | Encounter Summary ---
Author Organization [facility] [place] [address] Care Team Providers Care Senior Pl Sql Developer Name Role Phone Ayah Albrecht MD Primary Care Provider [phone] Reason for Referral * Diagnostic Test (Routine) - Closed Specialty Diagnoses / Procedures Referred By Contac t Referred To Contact Diagnoses Pain of lower extremity, unspecified laterality Procedures BONITA, legs, multiple levels Jessu Kam APRN [facility] [address] [facility] Vascular Lab [address], [place] [address] Referral ID Status Reason Start Date Expiration Date V isits Requested Visits Authorized [id number] Closed Specialty Service Requested 04/23/2021 04/23/2022 1 1 Encounter Details Date Type Department Care Team (Late st Contact Info) Description 04/23/2021 Orders Only [place] [address] Jesus Kam APRN [facility] [place] [address] Pain of lower extremity, unspecified [...] 2:40 PM EDT Office Visit Dermatology at [facility] [address] [place] [address] Emmanuelle Yeboah MD [facility] [place] [address] documented as of this encounter Results * BONITA, legs, multiple levels (04/24/2021 10:50 AM EDT) VB Text Report Department: Vascular Surgery Lab Patient: [id number] (KERI BROUSSARD) CPT: 50287 ICD10: M79.606;I77.1;I7 0.213 Referring Physician: JESUS KAM, [...] 04/24/2021 10:5 0 AM EDT Jesus Kam WALL WORKER VASCULAR ORDERABLE S [facility] documented in this encounter Visit Diagnoses Diagnosis Pain of lower extremity, unspecified laterality documented in this encounter Care Teams Senior Pl Sql Developer Relationship Specialty Start Date End Date Ayah Albrecht MD [address] [place] [address] PCP - General 05/04/14 07/23/22 documented as of this encounter
--- OUTSIDE RECORDS SUMMARY | 2024-06-27 09:44 | XMS_ITS | Encounter Summary ---
[place] [address] Care Team Providers Care Turn Out Worker Name Role Phone Raphael Albrecht MD Primary Care Provider [phone] Encounter Details Date Type Department Care Team (Latest Contact Info) Description 08/31/2014 10:00 AM EDT Procedure [place] [address] CLINIC, Veronica Valencia, RN Chest pain (Primary [...] Female, 64 yrs, 1950 PCP: RAPHAEL ALBRECHT DOOR CLOSER MECHANIC: NONE STUDY DATE: 08/31/14 INDICATION Chest pain. METHODS Stationary esophageal manometry was performed with the Spowit esophageal motility system utilizing the [employer] software with a 4-channel solid-state motility probe. [...] of the esophagus. Rigoberto Ferguson, PhD, MD change management expert, [facility] [employer] Section of Gastroenterology and Hepatology [facility] [place] [address] V: [phone] F: [phone] [facility]/danial CC/EC: PCP - fax copy 09/06/14 Enclosure: Tracing Anish Meraz DO - fax copy 09/06/14 Enclosure: Tracing * Veronica Bryan RN - 08/31/2014 10:22 AM EDT Esophageal manometry performed without difficulty and Was well tolerated. documented in this encounter Plan of Treatment Upcoming Encounters Date Type Department Care Team (Late st Contact Info) Description 06/29/2024 2:40 PM EDT Office Visit Dermatology at [facility] [address] [place] [address] Emmanuelle Yeboah MD [facility] [address] [place] [address] documented as of this encounter Visit Diagnoses Diagnosis Chest pain- Primary Chest pain, unspecified documented in this encounter Care Teams Turn Out Worker Relationship Specialty Start Date End Date Raphael Albrecht MD [address] [facility] [place] [place] [address] PCP - General 05/04/14 07/23/22 documented as of this encounter
--- OUTSIDE RECORDS SUMMARY | 2024-06-27 09:44 | XMS_ITS | Encounter Summary ---
Author Organization [facility] Address [facility] [place] [address] Care Team Providers Care Pvc Monitor Name Role Phone Ayah Albrecht MD Primary Care Provider [phone] Reason for Visit * Reason Comments Skin Cancer Examination * Consultation (Routine) - Closed Specialty Diagnoses / Procedures Referred By Contjose francisco t Referred To Contact Dermatology Diagnoses Encounter for screening for malignant neoplasm of skin Ayah Albrecht MD [address] [place] [address] [facility] Dermatology [address] [place] [address] Referral ID Status Reason Start Date Expiration Date V isits Requested Visits Authorized [id number] Closed Consult, Test & Treat Connection Center PCP Updated and/or Approved 09/25/2020 09/25/2021 6 6 Encounter Details Date Type Department Care Team (Late st Contact Info) Description 10/11/2020 10:15 AM EST Office Visit Dermatology at [facility] [address] [place] [address] Sharri Mata MD [facility] [place] [address] SK (seborrheic keratosis); Benign nevus of skin; [...] to 5pm), please call the clinic at [phone]. After 5pm, and on weekends and holidays, please call the hospital at [phone] and ask for the [employer] Consultant Outpatient Facility Physical Therapist. documented in this encounter Progress Notes * [...] discuss details of diagnosis and treatment with: lkpsurb36/3/2020 Chief Complaint Patient presents with ??? Skin [...] skin examination. Patient also advised that nail maori, makeup and jewelry/watches all interfere with a [...] shave removal, snip removal, watchful waiting - [place] decision to proceed with skin shave removal [...] encounter. Sharri Mata MD Section of Dermatology [facility] Floridalma Ibarra 10/11/2020 [id number] documented in this encounter Plan of Treatment Upcoming Encounters Date Type Department Care Team (Late st Contact Info) Description 06/29/2024 2:40 PM EDT Office Visit Dermatology at [facility] [address] [place] [address] Emmanuelle Yeboah MD [facility] [place] [address] documented as of this encounter Procedures Procedure Name Priority Date/Time Associated Diagnosis Comments SPECIMEN TO PATHOLOGY Routine 10/11/2020 10:56 AM EST Neoplasm of uncertain behavior of skin SURGICAL PATHOLOGY REPORT Routine 10/11/2020 10:55 AM EST documented in this encounter Results * Specimen to Pathology (10/11/2020 10:56 AM EST) AP Specimen 10/11/2020 10:5 6 AM EST 10/11/2020 1:35 PM EST Narrative [facility] - 10/11/2020 1:35 PM EST Specimen requisition ordered. ??Separate Pathology report to follow Resulting Agency Comment Spec In Lab Sharri Mata MD PATHOLOGY/CYTOLOGY O RDERABLES [facility] [place] [address] * Surgical Pathology Report (10/11/2020 10:55 AM EST) Final Diagnosis [id number] ? Location: [facility] The signing pathologist has (i) examined the relevant preparation(s) for the specimen(s) and (ii) rendered or confirmed the diagnosis(es). . ?Surgical Pathology DIAGNOSIS Left tear trough, skin shave removal: - ??Seborrheic keratosis, pigmented Electronically signed by: ??Cora BENNETT, Digna Verified: ??10/16/2020 ?Dermatopathol ogist Performed at: ??[facility] [place], [place], [place] SPECIMEN(S) SUBMITTED A - left tear [...] labeled A1. ??gerardo 10/16/2020 10:53 AM EST [facility] SPECIMEN FROM SKIN / Unknown 10/11/2020 10:55 AM EST 10/11/2020 10:55 AM EST Sharri Mata MD PATHOLOGY/CYTOLOGY O RDERABLES [facility] [place] [address] documented in this encounter Visit Diagnoses Diagnosis SK (seborrheic keratosis) Other seborrheic keratosis Benign nevus of skin Benign neoplasm of skin, site unspecified Falcon angioma Nevus, non-neoplastic Neoplasm of uncertain behavior of skin documented in this encounter Care Teams Pvc Monitor Relationship Specialty Start Date End Date Ayah Albrecht MD [address] [place] [address] PCP - General 05/04/14 07/23/22 documented as of this encounter
--- OUTSIDE RECORDS SUMMARY | 2024-06-27 09:44 | XMS_ITS | Encounter Summary ---
Author Organization [facility] [place] [address] Care Team Providers Care Cognos Bi Developer Name Role Phone Ayah Albrecht MD Primary Care Provider [phone] Reason for Visit * Consultation (Routine) - Closed Specialty Diagnoses / Procedures Referred By Jarret t Referred To Contact Vascular Surgery Diagnoses Peripheral vascular disease, unspecified Ayah Albrecht MD [address] [place] [address] [facility] [address] [place] [address] Referral ID Status Reason Start Date Expiration Date V isits Requested Visits Authorized [id number] Closed Consult, Test & Treat Connection Center PCP Updated and/or Approved 04/15/2021 04/15/2022 6 6 Encounter Details Date Type Department Care Team (Late st Contact Info) Description 04/24/2021 11:00 AM EDT Tech [place] [address] Mary Meehan Pain of lower [...] PM EDT Office Visit Dermatology at [facility] [address] [place] [address] Emmanuelle [facility]eboah MD [facility] [place] [address] documented as of this encounter Procedures Procedure Name Priority Date/Time Associated Diagnosis Comments BONITA, LEGS, MULTIPLE LEVELS Routine 04/24/2021 10:50 AM EDT Pain of lower extremity, unspecified laterality documented in this encounter Results * BONITA, legs, multiple levels (04/24/2021 10:50 AM EDT) VB Text Report Department: Vascular Surgery Lab Patient: [id number] (KERI BROUSSARD) CPT: 08264 ICD10: M79.606;I77.1;I7 0.213 Referring Physician: JESUS KAM [...] 04/24/2021 10:5 0 AM EDT Jesus Kam AIR CONDITIONING SERVICE TECHNICIAN VASCULAR ORDERABLE S VASCUBASE documented in this encounter Visit Diagnoses Diagnosis Pain of lower extremity, unspecified laterality documented in this encounter Care Teams Cognos Bi Developer Relationship Specialty Start Date End Date Ayah Albrecht MD [address] [place] [address] PCP - General 05/04/14 07/23/22 documented as of this encounter
--- OUTSIDE RECORDS SUMMARY | 2024-06-27 09:44 | XMS_ITS | Encounter Summary ---
[place] [address] Care Team Providers Care Branch Or Department Chief Librarian Name Role Phone Ayah Albrecht MD Primary Care Provider [phone] Encounter Details Date Type Department Care Team (Late st Contact Info) Description 06/24/2021 Telephone [place] [phone] Veronica Maldonado RN Social History Tobacco Use [...] RN - 06/24/2021 3:38 PM EDT This chief underwriter fielded phone call regarding medications. States she saw RUDDY Neves, who wantedto start her on something for arterial disease but wanted to wait as the patient was on Trazadone. Patient calling to state she is no longer on trazadone and is taking melatonin instead. 05/14/21 3V note indicates a trial of Pletal. This chief underwriter will send electronic message to Janay Fulton for clarification and follow up. Patient agrees with this plan. documented in this encounter Plan of Treatment Upcoming Encounters Date Type Department Care Team (Late st Contact Info) Description 06/29/2024 2:40 PM EDT Office Visit Dermatology at [address] [place] [address] Emmanuelle Yeboah MD [facility] [place] [address] documented as of this encounter Visit Diagnoses Not on filedocumented in this encounter Care Teams Branch Or Department Chief Librarian Relationship Specialty Start Date End Date Ayah Albrecht MD [address] [facility] [place] [address] PCP - General 05/04/14 07/23/22 documented as of this encounter
--- OUTSIDE RECORDS SUMMARY | 2024-06-27 09:44 | XMS_ITS | Encounter Summary ---
[place] [address] Care Team Providers Care Tool Designer Name Role Phone Raphael Dixon MD Primary Care Provider [phone] Encounter Details Date Type Department Care Team (Late st Contact Info) Description 05/04/2014 2:00 PM EDT - 05/04/2014 3:00 PM EDT [place] [address] Erik Cho MD [facility] [place] [address] CARDIAC CATHETERIZATION Social History Tobacco Use Types [...] pm if you have questions please call [phone] Greenberg will see you on 06/08/14 at 12 noon if you have questions please call [phone] Home oxygen therapy: N/A Arrangements for VNA/home [...] Reason for Nutrition Intervention: Consult Diet Order: [facility] Appetite: Good Food allergies: NKFA Chewing/Swallowing difficulty: [...] and where to pick them up in [facility], Patient alerted to driving restriction for [...] Progress Note Patient Name: Floridalma Ibarra Service: INTERNATIONAL CONTROLLER / PA Responsible Attending: Dino Heller MD [...] 63 y.o. female admitted in transfer from [facility] with 18 months of transient chest [...] Patient admits to depressed mood Has tried staff genetic counselor and antidepression meds in past without improvement Recommend follow up with PCP Suggested patient seek counselor that she can relate to 6. Nicotine dependence - Recommend patient continue to work on smoking cessation Suggest PFT's as outpatient Aliyah Beverly, FELICITY 05/05/2014 Attending Beautician Apprentice Addendum: Floridalma Ibarra is a 63 y.o. [...] inthe meantime. Dino Heller M.D., F.A.C.C. Staff Beautician Apprentice pager [phone] * Timmy Ly MD - 05/04/2014 4:19 PM EDT STAFF ADDENDUM: I have reviewed the available records, interviewed and examined the patient. I have discussed the patient's medical history, differential diagnosis, and plan of therapy with Aliyah Beverly and have reviewed their note dated 05/04/2014 and I agree with their note and plan of therapy. Interval History: 63yo woman transferred from [facility] for cardiac cath. She has a [...] 05/04/2014 12:05 PM EDT Marian El RN,CRC, [facility] Pager [phone] Office of Care Management (OCM) / Clinical Cinder Snapper (CRC)/ Initial Assessment Discussed patient with Provider [...] None. Home Health Agency: None. Other: None. SUPERVISOR TANK HOUSE REFERRAL: No needs identified at this time. PRIMARY CARE PHYSICIAN: RAPHAEL DIXON MD [address] [facility] / [facility] [id number] POTENTIAL DISCHARGE NEEDS: None identified at this [...] therapy. Interval History: 63yo woman transferred from [facility] for cardiac cath. She has a [...] female with no known CAD transferred from [facility] with chest pressure. The patient reports [...] without relief from ntg. She presented to [facility]. At [facility] her labs Cr 1.1, Mg 1.6 K 3.7, trop 0.02 x3, h/h 13.6/39.6, PLT 182, PT/INR 9.7/1.0, EKG nonspecific qrs widening with possible anteroseptal NV. She was loaded with plavix 300 mg and asa 324 mg. At [facility] her VS 36.5-65-16 95/40 95% ra. Diagnostics: There is notation regarding an MPI with fixed anterior defect earlier this month however I do not have access to this test/imaging. CXR hyperinflated lungs otherwise no evidence of acute intrapulmonary process. She was started on heparin gtt and ntg gtt and transferred to [facility] for further management/work up. She is a [...] two sisters with CAD. On arrival to [facility] she is painfree on ntg gtt 20 [...] 05/06/2014 9:45 AM EDTAssociated Order(s): SCAN DOC: INSPECTOR POISING * Provider, Scanning - 05/04/2014 3:39 PM EDTAssociated Order(s): CARDIAC CATHETERIZATION documented in this encounter Miscellaneous Notes * Miscellaneous - Provider, Scanning - 05/06/2014 9:45 AM EDT * Discharge Summary - Timmy Ly MD - 05/05/2014 11:10 AM EDT Discharge Summary Patient Name: Floridalma Ibarra Patient Age: 63 y.o. Language: German Race: White Ethnicity: Not nor Admit date: 05/04/2014 Discharge date and time: 05/05/2014 Attending Physician: Dino Heller MD Discharge Physician: Dino Heller MD Follow-up Recommendations for Providers: 1. Schedule EGD 2. Recommend area staff genetic counselor for depression 3. Schedule PFT's 4. Cardiology to follow up with ziopatch results and determine future anticoagulation needs 5. Assess toleration/effect of new protonix and asa therapy Inpatient Provider Contact Information: Aliyah Popepkins, AGED OR DISABLED CARE WORKER [phone] Discharge Diagnoses (Hospital Problems) and Secondary Diagnoses [...] female with no known CAD transferred from [facility] with chest pressure. The patient reports [...] without relief from ntg. She presented to [facility]. At [facility] her labs Cr 1.1, Mg 1.6 K 3.7, trop 0.02 x3, h/h 13.6/39.6, PLT 182, PT/INR 9.7/1.0, EKG nonspecific qrs widening with possible anteroseptal NV. She was loaded with plavix 300 mg and asa 324 mg. At [facility] her VS 36.5-65-16 95/40 95% ra. Diagnostics: There is notation regarding an MPI with fixed anterior defect earlier this month however I do not have access to this test/imaging at the time of admission. CXR hyperinflated lungs otherwise no evidence of acute intrapulmonary process. She was started on heparin gtt and ntg gtt and transferred to [facility] for further management/work up. She is a [...] weight/etoh and smoking habits. She has tried staff genetic counselor and antidepression meds in past without improvement. Recommend follow up with PCP and suggest patient seek counselor that she can relate to as she mentioned this is why she stopped staff genetic counselor in the past. Nicotine dependence - [...] pm if you have questions please call [phone] Greenberg will see you on 06/08/14 at 12 noon if you have questions please call [phone] Home oxygen therapy: N/A Arrangements for VNA/home care: none Future Appointments and Orders Future Appointments: Provider: Department: Dept Phone: Center: 05/05/2014 12:30 PM Event Monitor [facility] [phone] None Future Orders Please Complete By Celia BLEDSOE [[email or web address] Custom] 05/05/14 05/05/15 Process Instructions: Scheduling Instructions: Comments: Questions: Responses: Does the patient have a pacemaker? If yes provide HI/LO settings: Which location will this be performed? [place] Should this service/procedure be billed to the research sponsor? The [employer] has limited insurance coverage and patients are being billed in full. Conventional heart monitors should be ordered while payer appeals are completed. Has possible out of pocket expense been discussed with the patient? Yes Discharge References/Attachments None STAFF ADDENDUM: 63yo woman transferred from [facility] for cardiac cath. She has a [...] 2:40 PM EDT Office Visit Dermatology at [facility] [address] [place] [address] Emmanuelle Yeboah MD [facility] [place] [address] Scheduled Orders Name Type Priority Associated Diagnoses Orde r Schedule EKG 12 Lead ECG Routine Chest pain One Time for 1 Occurrences starting 05/04/2014 until 05/04/2014 EKG 12 Lead ECG Routine LBBB (left bundle branch block) One Time for 1 Occurrences starting 05/04/2014 until 05/04/2014 documented as of this encounter Procedures Procedure Name Priority Date/Time Associated Diagnosis Comments INSPECTOR POISING SCAN 05/06/2014 9:45 AM EDT ZIOPATCH Routine [...] 05/04/20 14 10:28 AM EDT CARDIAC ENZYMES ([facility]/CGP) STAT 05/04/2014 10:28 AM EDT APTT STAT 05/04/2014 10:28 AM EDT PROTHROMBIN TIME STAT 05/04/2014 10:2 8 AM EDT CBC (WITH DIFF) STAT 05/04/2014 10:28 AM EDT BASIC METABOLIC PANEL STAT 05/04/2014 10:28 AM EDT EKG 12-LEAD STAT 05/04/2014 10:03 AM EDT Chest pain documented in this encounter Results * SCAN DOC: INSPECTOR POISING (05/06/2014 9:45 AM EDT) Anatomical Region Laterality Modality Other Narrative 05/06/2014 10:22 AM EDT Procedure Note Provider, Scanning - 05/06/2014 9:45 AM EDT Scanning Provider MEDIA MGR SCAN EXT O RDR/RSLT * ZIOPATCH (05/05/2014 12:51 PM EDT) Anatomical Region Laterality Modality Other Narrative 05/24/2014 6:22 PM EDT [facility] ?ZIO PATCH ??REPORT Ordering Provider: ??Dino Heller [...] Procedure Note Wilner Copeland MD - 05/24/2014 [facility] ZIO PATCH REPORT Ordering Provider: Dino Heller [...] Narrative Resulting Agency Comment Spec In Lab Tmimy Ly MD HEMATOLOGY ORDERABLE S CERNER MILLENNIUM [...] MD HEMATOLOGY ORDERABLE S Performing Organization Address [facility] Co de Phone Number [facility] PAMENNIUM * (ABNORMAL) Hepatic Function Panel [...] Ly MD CHEMISTRY ORDERABLES Performing Organization Address [facility] de Phone Number [facility] * Hemoglobin A1c (05/05/2014 4:01 AM EDT) [...] Mellitus, Diabetes Care 2013; 36: Suppl. 1, J60-29 Estimated Average Glucose 111 mg/dL [facility] Comment: eAG equivalents for HbA1c percentages: HbA1c(%) ?eAG(mg/dL) 6.0 ?126 6.5 ?140 7.0 ?154 7.5 ?169 8.0 ?183 8.5 ?197 9.0 ?212 9.5 ?226 10.0 ? 240 Limitations: The eAG calculation has not been validated on women, individuals below 18 years old and above 70 years old, and individuals with hemoglobinopathies. Additional resources are available on the ADA website: http://[employer] [employer]/DHMCadacalc Ralph FORTUNE, Hal J, Isa R, et al. ??Translating the A1C assay into estimated average glucose values. ??Diabetes Care 2008:31(8):8516-8593. Blood specimen (specimen) 05/05/2014 4:01 AM EDT 05/05/2014 4:22 AM EDT Narrative Resulting Agency Comment Spec In Lab Timmy Ly MD CHEMISTRY ORDERABLES [facility] * Lipid panel (fasting) (05/05/2014 4:01 AM EDT) Cholesterol, Total 153 <=199 mg/dL [facility] Comment: Recommendations of the NCEP Adult Treatment Panel for the following risk cutoff thresholds for the [place] population: Desirable: <200 mg/dL Borderline High: 200-239 mg/dL High: > or = 240 mg/dL Triglyceride 90 <=149 mg/dL [facility] Comment: Reference Range: Normal triglycerides: ??<150 mg/dL Borderline high: ??150-199 mg/dL High: ??200-499 mg/dL Very high: ??>wv=554 mg/dL VIDYA 2001; 285(19):8782-1128 HDL Cholesterol 83 >=40 mg/dL [facility] Comment: Reference range: ??Low HDL: ?? < 40 mg/dL ??Normal: ?40-60 mg/dL ??Desirable: > 60 mg/dL VIDYA 2001; 285(19):8040-7188 LDL Cholesterol 52 <=99 mg/dL [facility] Comment: Reference range: ?? Optimal: ?<100 mg/dL ?? Near Optimal/Above Optimal: ?? 100-129 mg/dL ?? Borderline high: ?130-159 mg/dL ?? High: ? 160-189 mg/dL ?? Very high: ?>vv=745 mg/dL VIDYA 2001: 285(19):2707-9275 Cholesterol/HDL Ratio 1.8 ratio [facility] Comment: A Cholesterol to HDL ratio below 4:1 is desirable. ??Studies suggest that increased CAD risk occurs at ratios above 5 for females and above 6 for men. ? [place] Heart Association ??(http://www.americanheart.org) ? Fiordaliza Int Med, [...] intervals supplied above were not validated at [facility]. Results from pediatric patients should be interpreted [...] the following links into your internet browser. [email or web address] Blood specimen (specimen) 05/05/2014 4:01 AM EDT 05/05/2014 4:22 AM EDT Narrative Resulting Agency Comment Spec In Lab Timmy Ly MD CHEMISTRY ORDERABLES Performing Organization Address [facility] de Phone Number [facility] * BUN (05/05/2014 4:01 AM EDT) Blood Urea Nitrogen 16 8 - 18 mg/dL [facility] Blood specimen (specimen) 05/05/2014 4:01 AM EDT 05/05/2014 4:22 AM EDT Narrative Resulting Agency Comment Spec In Lab Timmy Ly MD CHEMISTRY ORDERABLES Performing Organization Address [facility] de Phone Number [facility] * Electrolytes panel (05/05/2014 4:01 AM EDT) Sodium 140 135 - 145 mmol/L [facility] MILLENNIUM Potassium 4.2 3.5 - 5.0 [...] Ly MD CHEMISTRY ORDERABLES Performing Organization Address [facility] de Phone Number [facility] * Cardiac Enzymes (05/05/2014 12:51 AM EDT) Troponin-T <0.03 <=0.03 ng/mL CERNER MILLENNIUM Comment: 0.03 ng/mL: Represents the 99th percentile upper reference limit for normals. >0.03 ng/mL: Elevated cardiac troponin T level indicative of myocardial damage. Diagnosis of acute, evolving or recent NV requires a typical rise and gradual fall [...] consensus document of the Joint Society of Cardiology/[place] College of Cardiology Committee for the redefinition of myocardial infarction. ??Journal of the [place] College of Cardiology 2000; 36: 959-969] Creatine Kinase 54 0 - 160 unit/L [facility] MILLENNIUM Blood specimen (specimen) 05/05/2014 12:51 AM EDT 05/05/2014 12:55 AM EDT Narrative Resulting Agency Comment Spec In Lab Timmy Ly MD CHEMISTRY ORDERABLES Performing Organization Address [facility] de Phone Number [facility] * Cardiac Enzymes (05/04/2014 7:13 PM EDT) Troponin-T <0.03 <=0.03 ng/mL [facility] MILLENNIUM Comment: 0.03 ng/mL: Represents the 99th percentile upper reference limit for normals. >0.03 ng/mL: Elevated cardiac troponin T level indicative of myocardial damage. Diagnosis of acute, evolving or recent NV requires a typical rise and gradual fall [...] consensus document of the Joint Society of Cardiology/[place] College of Cardiology Committee for the redefinition of myocardial infarction. ??Journal of the [place] College of Cardiology 2000; 36: 959-969] Creatine [...] intervals supplied above were not validated at [facility]. Results from pediatric patients should be interpreted [...] the following links into your internet browser. [email or web address] Blood specimen (specimen) 05/04/2014 10:28 AM EDT 05/04/2014 11:10 AM EDT Narrative Resulting Agency Comment Spec In Lab Timmy Ly MD CHEMISTRY ORDERABLES Performing Organization Address [facility] Co de Phone Number Alai * Cardiac Enzymes (05/04/2014 10:28 AM EDT) Pathologist [facility] Troponin-T <0.03 <=0.03 ng/mL [facility] [employer] Comment: 0.03 ng/mL: Represents the 99th percentile upper reference limit for normals. >0.03 ng/mL: Elevated cardiac troponin T level indicative of myocardial damage. Diagnosis of acute, evolving or recent NV requires a typical rise and gradual fall [...] consensus document of the Joint Society of Cardiology/[place] College of Cardiology Committee for the redefinition of myocardial infarction. ??Journal of the [place] College of Cardiology 2000; 36: 959-969] Creatine Kinase 62 0 - 160 unit/L [facility] SEMFOX GmbHCARL Blood specimen (specimen) 05/04/2014 10:28 AM EDT 05/04/2014 11:10 AM EDT Narrative Resulting Agency Comment Spec In Lab Timmy Ly MD CHEMISTRY ORDERABLES Performing Organization Address [facility] Co de Phone Number [facility] BRYANT [...] MD HEMATOLOGY ORDERABLE S Performing Organization Address [facility] Co de Phone Number [facility] * Prothrombin Time (05/04/2014 10:28 AM EDT) Prothrombin Time 14.2 12.5 - 15.5 sec [facility] Comment: [facility] Transfusion Committee Guidelines: INR less than 2.0, PTT less than OR equal to 43.5 seconds, or Fibrinogen greater than or equal to 100 mg/dl indicate adequate procoagulant activity for hemostasis in patients without underlying bleeding disorders. International Normalization Ratio 1.0 0.9 - 1.1 [facility] Blood specimen (specimen) 05/04/2014 10:28 AM EDT 05/04/2014 11:10 AM EDT Narrative Resulting Agency Comment Spec In Lab Timmy Ly MD HEMATOLOGY ORDERABLE S Performing Organization Address [facility] Co de Phone Number [facility] * EKG 12 Lead (05/04/2014 10:03 AM EDT) Ventricular rate 55 BPM MUSE SYSTEM Atrial Rate 55 BPM MUSE SYSTEM P-R Interval 184 ms MUSE SYSTEM QRS Duration 132 ms MUSE SYSTEM Q-T Interval 496 ms MUSE SYSTEM QTC Calculated (Bezet) 474 ms MUSE SYSTEM Calculated P Taylor 70 degrees MUSE SYSTEM Calculated R Taylor -33 degrees MUSE SYSTEM Calculated T Taylor 63 degrees MUSE SYSTEM INTERPRETATION Sinus bradycardia [...] Kayli Mccormack, WINDY)1423 (Stopped - Provider: Amber Camejo, WINDY) nitroGLYcerin 50 mg/250 mL (200 mcg/mL) [...] Patch documented in this encounter Care Teams Tool Designer Relationship Specialty Start Date End Date Raphael Dixon MD [address] [place] [address] PCP - General 05/04/14 07/23/22 documented as of this encounter
--- OUTSIDE RECORDS SUMMARY | 2024-06-27 09:44 | XMS_ITS | Encounter Summary ---
[place] [address] Care Team Providers Care Solderer Assembler Name Role Phone Raphael Dixon MD Primary Care Provider [phone] Encounter Details Date Type Department Care Team (Latest Contact Info) Description 05/04/2014 8:23 AM EDT - 05/05/2014 12:20 PM EDT Hospital Encounter Inter[place] [address] Russell Whitman MD [facility] [place] [address] Timmy Ly MD [facility] [place] [address] Dino Heller MD [facility] [place] [address] Chest pain; LBBB (left bundle branch block); [...] pm if you have questions please call [phone] Greenberg will see you on 06/08/14 at 12 noon if you have questions please call [phone] Home oxygen therapy: N/A Arrangements for VNA/home [...] Reason for Nutrition Intervention: Consult Diet Order: [facility] Appetite: Good Food allergies: NKFA Chewing/Swallowing difficulty: [...] and where to pick them up in [facility], Patient alerted to driving restriction for [...] Progress Note Patient Name: Floridalma Ibarra Service: SEASONAL GREENERY BUNDLER / PA Responsible Attending: Dino Heller MD [...] 63 y.o. female admitted in transfer from [facility] with 18 months of transient chest pressure [...] Patient admits to depressed mood Has tried school counsellor and antidepression meds in past without improvement Recommend follow up with PCP Suggested patient seek counselor that she can relate to 6. Nicotine dependence - Recommend patient continue to work on smoking cessation Suggest PFT's as outpatient Aliyah Beverly, FELICITY 05/05/2014 Attending Sales Account Representative Addendum: Floridalma Ibarra is a 63 y.o. [...] inthe meantime. Dino Heller M.D., F.A.C.C. Staff Sales Account Representative pager [phone] * Timmy Ly MD - 05/04/2014 4:19 PM EDT STAFF ADDENDUM: I have reviewed the available records, interviewed and examined the patient. I have discussed the patient's medical history, differential diagnosis, and plan of therapy with Aliyah Beverly and have reviewed their note dated 05/04/2014 and I agree with their note and plan of therapy. Interval History: 63yo woman transferred from [facility] for cardiac cath. She has a longstanding [...] 05/04/2014 12:05 PM EDT Marian El RN,CRC, [facility] Pager [phone] Office of Care Management (OCM) / Clinical Threading Machine Tender (CRC)/ Initial Assessment Discussed patient with Provider [...] None. Home Health Agency: None. Other: None. BLOCK PILER REFERRAL: No needs identified at this time. PRIMARY CARE PHYSICIAN: RAPHAEL DIXON MD [address] [facility] [address] POTENTIAL DISCHARGE NEEDS: None identified at this [...] therapy. Interval History: 63yo woman transferred from [facility] for cardiac cath. She has a longstanding h/o symptoms suggestive of reflux and treated as such. Worsening symptoms prompted visit with Dr Greenberg and ETT for which she is referred for cath. EKG - LBBB with biphasic T waves in V1-3 Lab Comments: Multiple labs assessed. Problems Reviewed: LBBB R/O CAD Plan: cath * Aliyah Beverly, COFFEE MAKER - 05/04/2014 9:56 AM EDT Cardiology Admission [...] female with no known CAD transferred from [facility] with chest pressure. The patient reports 18 [...] without relief from ntg. She presented to [facility]. At [facility] her labs Cr 1.1, Mg 1.6 K 3.7, trop 0.02 x3, h/h 13.6/39.6, PLT 182, PT/INR 9.7/1.0, EKG nonspecific qrs widening with possible anteroseptal IA. She was loaded with plavix 300 mg and asa 324 mg. At [facility] her VS 36.5-65-16 95/40 95% ra. Diagnostics: There is notation regarding an MPI with fixed anterior defect earlier this month however I do not have access to this test/imaging. CXR hyperinflated lungs otherwise no evidence of acute intrapulmonary process. She was started on heparin gtt and ntg gtt and transferred to [facility] for further management/work up. She is a [...] two sisters with CAD. On arrival to [facility] she is painfree on ntg gtt 20 [...] 05/06/2014 9:45 AM EDTAssociated Order(s): SCAN DOC: ELECTRICAL TECHNICIAN * Provider, Scanning - 05/04/2014 3:39 PM EDTAssociated Order(s): CARDIAC CATHETERIZATION documented in this encounter Miscellaneous Notes * Miscellaneous - Provider, Scanning - 05/06/2014 9:45 AM EDT * Discharge Summary - Timmy Ly MD - 05/05/2014 11:10 AM EDT Discharge Summary Patient Name: lForidalma Ibarra Patient Age: 63 y.o. Language: Kiswahili Race: White Ethnicity: Not nor Admit date: 05/04/2014 Discharge date and time: 05/05/2014 Attending Physician: Dino Heller MD Discharge Physician: Dino Heller MD Follow-up Recommendations for Providers: 1. Schedule EGD 2. Recommend area school counsellor for depression 3. Schedule PFT's 4. Cardiology to follow up with ziopatch results and determine future anticoagulation needs 5. Assess toleration/effect of new protonix and asa therapy Inpatient Provider Contact Information: Aliyah Beverly, COFFEE MAKER [phone] Discharge Diagnoses (Hospital Problems) and Secondary Diagnoses [...] female with no known CAD transferred from [facility] with chest pressure. The patient reports 18 [...] without relief from ntg. She presented to [facility]. At [facility] her labs Cr 1.1, Mg 1.6 K 3.7, trop 0.02 x3, h/h 13.6/39.6, PLT 182, PT/INR 9.7/1.0, EKG nonspecific qrs widening with possible anteroseptal IA. She was loaded with plavix 300 mg and asa 324 mg. At [facility] her VS 36.5-65-16 95/40 95% ra. Diagnostics: There is notation regarding an MPI with fixed anterior defect earlier this month however I do not have access to this test/imaging at the time of admission. CXR hyperinflated lungs otherwise no evidence of acute intrapulmonary process. She was started on heparin gtt and ntg gtt and transferred to [facility] for further management/work up. She is a [...] weight/etoh and smoking habits. She has tried school counsellor and antidepression meds in past without improvement. Recommend follow up with PCP and suggest patient seek counselor that she can relate to as she mentioned this is why she stopped school counsellor in the past. Nicotine dependence - Recommend [...] pm if you have questions please call [phone] Greenberg will see you on 06/08/14 at 12 noon if you have questions please call [phone] Home oxygen therapy: N/A Arrangements for VNA/home care: none Future Appointments and Orders Future Appointments: Provider: Department: Dept Phone: Center: 05/05/2014 12:30 PM Event Monitor [facility] Non-Invasive Cardiology Lab [phone] None Future Orders Please Complete By Expires RAKAN [[email or web address] Custom] 05/05/14 05/05/15 Process Instructions: Scheduling Instructions: Comments: Questions: Responses: Does the patient have a pacemaker? If yes provide HI/LO settings: Which location will this be performed? [place] Should this service/procedure be billed to the research sponsor? The ZioPatch has limited insurance coverage and patients are being billed in full. Conventional heart monitors should be ordered while payer appeals are completed. Has possible out of pocket expense been discussed with the patient? Yes Discharge References/Attachments None STAFF ADDENDUM: 63yo woman transferred from [facility] for cardiac cath. She has a longstanding [...] 2:40 PM EDT Office Visit Dermatology at [facility] [address] [place] [address] Emmanuelle Yeboah MD [facility] [address] [facility] [address] Scheduled Orders Name Type Priority Associated Diagnoses Orde r Schedule EKG 12 Lead ECG Routine Chest pain One Time for 1 Occurrences starting 05/04/2014 until 05/04/2014 EKG 12 Lead ECG Routine LBBB (left bundle branch block) One Time for 1 Occurrences starting 05/04/2014 until 05/04/2014 documented as of this encounter Procedures Procedure Name Priority Date/Time Associated Diagnosis Comments ELECTRICAL TECHNICIAN SCAN 05/06/2014 9:45 AM EDT ZIOPATCH Routine [...] 05/05/2014 4: 01 AM EDT CARDIAC ENZYMES ([facility]) STAT 05/05/2014 12:51 AM EDT CARDIAC ENZYMES ([facility]) STAT 05/04/2014 7:13 PM EDT CARDIAC CATHETERIZATION Routine 05/04/20 14 3:39 PM EDT HEMOGRAM STAT 05/04/2014 10:28 AM EDT DIFFERENTIAL, AUTOMATED STAT 05/04/20 14 10:28 AM EDT CARDIAC ENZYMES ([facility]) STAT 05/04/2014 10:28 AM EDT APTT STAT 05/04/2014 10:28 AM EDT PROTHROMBIN TIME STAT 05/04/2014 10:2 8 AM EDT CBC (WITH DIFF) STAT 05/04/2014 10:28 AM EDT BASIC METABOLIC PANEL STAT 05/04/2014 10:28 AM EDT EKG 12-LEAD STAT 05/04/2014 10:03 AM EDT Chest pain documented in this encounter Results * SCAN DOC: ELECTRICAL TECHNICIAN (05/06/2014 9:45 AM EDT) Anatomical Region Laterality Modality Other Narrative 05/06/2014 10:22 AM EDT Procedure Note Provider, Scanning - 05/06/2014 9:45 AM EDT Scanning Provider MEDIA MGR SCAN EXT O RDR/RSLT * ZIOPATCH (05/05/2014 12:51 PM EDT) Anatomical Region Laterality Modality Other Narrative 05/24/2014 6:22 PM EDT [facility] ?ZIO PATCH ??REPORT Ordering Provider: [...] Procedure Note Wilner Copeland MD - 05/24/2014 [facility] ZIO PATCH REPORT Ordering Provider: [...] MD HEMATOLOGY ORDERABLE S Performing Organization Address [facility] de Phone Number CERLISANDRA OROZCOENNIUM * (ABNORMAL) Hepatic Function Panel (05/05/2014 4:01 AM EDT) Pathologist [facility] Protein, Total 5.9(L) 6.4 - 8.3 gm/dL [...] Ly MD CHEMISTRY ORDERABLES Performing Organization Address [facility] Co de Phone Number CERNER MILLENNIUM [...] Mellitus, Diabetes Care 2013; 36: Suppl. 1, S67-45 Estimated Average Glucose 111 mg/dL [facility] Comment: eAG equivalents for HbA1c percentages: HbA1c(%) ?eAG(mg/dL) 6.0 ?126 6.5 ?140 7.0 ?154 7.5 ?169 8.0 ?183 8.5 ?197 9.0 ?212 9.5 ?226 10.0 ? 240 Limitations: The eAG calculation has not been validated on women, individuals below 18 years old and above 70 years old, and individuals with hemoglobinopathies. Additional resources are available on the ADA website: http://Forgame.com/DHMCadacalc Ralph FORTUNE, Hal J, Isa R, et al. ??Translating the A1C assay into estimated average glucose values. ??Diabetes Care 2008:31(8):7457-8034. Blood specimen (specimen) 05/05/2014 4:01 AM EDT 05/05/2014 4:22 AM EDT Narrative Resulting Agency Comment Spec In Lab Timmy Ly MD CHEMISTRY ORDERABLES [facility] * Lipid panel (fasting) (05/05/2014 4:01 AM EDT) [facility] Signature Cholesterol, Total 153 <=199 mg/dL CERNER MILLENNIUM Comment: Recommendations of the NCEP Adult Treatment Panel for the following risk cutoff thresholds for the [place] population: Desirable: <200 mg/dL Borderline High: 200-239 mg/dL High: > or = 240 mg/dL Triglyceride 90 <=149 mg/dL CERNER MILLENNIUM Comment: Reference Range: Normal triglycerides: ??<150 mg/dL Borderline high: ??150-199 mg/dL High: ??200-499 mg/dL Very high: ??>io=952 mg/dL VIDYA 2001; 285(19):8478-3211 HDL Cholesterol 83 >=40 mg/dL CER NER MILLENNIUM Comment: Reference range: ??Low HDL: ?? < 40 mg/dL ??Normal: ?40-60 mg/dL ??Desirable: > 60 mg/dL VIDYA 2001; 285(19):8878-8058 LDL Cholesterol 52 <=99 mg/dL CER NER MILLENNIUM Comment: Reference range: ?? Optimal: ?<100 mg/dL ?? Near Optimal/Above Optimal: ?? 100-129 mg/dL ?? Borderline high: ?130-159 mg/dL ?? High: ? 160-189 mg/dL ?? Very high: ?>wm=909 mg/dL VIDYA 2001: 285(19):1818-0154 Cholesterol/HDL Ratio 1.8 ratio CERNER MILLENNIUM Comment: A Cholesterol to HDL ratio below 4:1 is desirable. ??Studies suggest that increased CAD risk occurs at ratios above 5 for females and above 6 for men. ? [place] Heart Association ??(http://www.americanheart.org) ? Fiordaliza Int Med, 1994; 121:641 ? AM J Med, 1998; 105(1A):48S Blood specimen (specimen) 05/05/2014 4:01 AM EDT 05/05/2014 4:22 AM EDT Narrative Resulting Agency Comment Spec In Lab Timmy Ly MD CHEMISTRY ORDERABLES Performing Organization Address [facility] de Phone Number [facility] * Creatinine (05/05/2014 4:01 AM EDT) Creatinine 0.94 0.70 - 1.20 mg/dL [facility]ITAL[facility] Comment: Please note that the pediatric reference intervals supplied above were not validated at [facility]. Results from pediatric patients should be interpreted in conjunction to the patient's age, height and muscle mass. Est Glomerular Filtration Rate 60 >=60 [facility] Comment: This estimated GFR (eGFR) value [...] the following links into your internet browser. [email or web address] Blood specimen (specimen) 05/05/2014 4:01 AM EDT 05/05/2014 4:22 AM EDT Narrative Resulting Agency Comment Spec In Lab Timmy Ly MD CHEMISTRY ORDERABLES Performing Organization Address [facility] de Phone Number [facility] * BUN (05/05/2014 4:01 AM EDT) Blood Urea Nitrogen 16 8 - 18 mg/dL [facility] PosmetricsIUM Blood specimen (specimen) 05/05/2014 4:01 AM EDT 05/05/2014 4:22 AM EDT Narrative Resulting Agency Comment Spec In Lab Timmy Ly MD CHEMISTRY ORDERABLES Performing Organization Address [facility] Co de Phone Number MAXWELL CARABALLOIUM [...] In Lab Timmy Ly MD CHEMISTRY ORDERABLES [facility] * Cardiac Enzymes (05/05/2014 12:51 AM EDT) Pathologist [facility] Troponin-T <0.03 <=0.03 ng/mL CERNER MILLENNIUM Comment: 0.03 ng/mL: Represents the 99th percentile upper reference limit for normals. >0.03 ng/mL: Elevated cardiac troponin T level indicative of myocardial damage. Diagnosis of acute, evolving or recent IA requires a typical rise and gradual fall [...] consensus document of the Joint Society of Cardiology/[place] College of Cardiology Committee for the redefinition of myocardial infarction. ??Journal of the [place] College of Cardiology 2000; 36: 959-969] Creatine Kinase 54 0 - 160 unit/L [facility]ERNER MILLENNIUM Blood specimen (specimen) 05/05/2014 12:51 AM EDT 05/05/2014 12:55 AM EDT Narrative Resulting Agency Comment Spec In Lab Timmy Ly MD CHEMISTRY ORDERABLES Performing Organization Address [facility] de Phone Number [facility] * Cardiac Enzymes (05/04/2014 7:13 PM EDT) Troponin-T <0.03 <=0.03 ng/mL [facility] Comment: 0.03 ng/mL: Represents the 99th percentile upper reference limit for normals. >0.03 ng/mL: Elevated cardiac troponin T level indicative of myocardial damage. Diagnosis of acute, evolving or recent IA requires a typical rise and gradual fall [...] consensus document of the Joint Society of Cardiology/[place] College of Cardiology Committee for the redefinition of myocardial infarction. ??Journal of the [place] College of Cardiology 2000; 36: 959-969] Creatine Kinase 53 0 - 160 unit/L [facility] Blood specimen (specimen) 05/04/2014 7:13 PM EDT 05/04/2014 7:26 PM EDT Narrative Resulting Agency Comment Spec In Lab Timmy Ly MD CHEMISTRY ORDERABLES Performing Organization Address [facility] de Phone Number [facility] * Cardiac [...] Metabolic Panel (non-fasting) (05/04/2014 10:28 AM EDT) [facility] Glucose 87 60 - 199 mg/dL CERNER MILLENNIUM Comment:Diabetes: >=200 mg/d L plus symptoms Blood Urea Nitrogen 11 8 - 18 mg/dL [facility] MILLENNIUM Creatinine 0.87 0.70 - 1.20 mg/dL [facility] MILLENNIUM Comment: Please note that the pediatric reference intervals supplied above were not validated at [facility]. Results from pediatric patients should be interpreted [...] the following links into your internet browser. [email or web address] Blood specimen (specimen) 05/04/2014 10:28 AM EDT [...] damage. Diagnosis of acute, evolving or recent IA requires a typical rise and gradual fall [...] consensus document of the Joint Society of Cardiology/[place] College of Cardiology Committee for the redefinition of myocardial infarction. ??Journal of the [place] College of Cardiology 2000; 36: 959-969] Creatine Kinase 62 0 - 160 unit/L [facility] CAR[facility] Blood specimen (specimen) 05/04/2014 10:28 AM EDT 05/04/2014 11:10 AM EDT Narrative Resulting Agency Comment Spec In Lab Timmy Ly MD CHEMISTRY ORDERABLES Performing Organization Address [facility] Co de Phone Number [facility] * (ABNORMAL) APTT (05/04/2014 10:28 AM EDT) Partial Thromboplastin Time 59(H) 25 - 35 sec [facility] OROZCOBEN[facility]OSPITALIUM Comment: Recommended therapeutic PTT range for full dose unfractionated heparin is 80-114 seconds. Blood specimen (specimen) 05/04/2014 10:28 AM EDT 05/04/2014 11:10 AM EDT Narrative Resulting Agency Comment Spec In Lab Timmy Ly MD HEMATOLOGY ORDERABLE S Performing Organization Address [facility] de Phone Number [facility] * Prothrombin Time (05/04/2014 10:28 AM EDT) Prothrombin Time 14.2 12.5 - 15.5 sec [facility] OROZCOBENSON HOSPITALCARL Comment: [facility] Transfusion Committee Guidelines: INR less than 2.0, PTT less than OR equal to 43.5 seconds, or Fibrinogen greater than or equal to 100 mg/dl indicate adequate procoagulant activity for hemostasis in patients without underlying bleeding disorders. International Normalization Ratio 1.0 0.9 - 1.1 [facility] CARABALLOIUM Blood specimen (specimen) 05/04/2014 10:28 AM EDT 05/04/2014 11:10 AM EDT Narrative Resulting Agency Comment Spec In Lab Timmy Ly MD HEMATOLOGY ORDERABLE S Performing Organization Address [facility] Co de Phone Number [facility] * EKG 12 Lead (05/04/2014 10:03 AM EDT) Ventricular rate 55 BPM MUSE SYSTEM Atrial Rate 55 BPM MUSE SYSTEM P-R Interval 184 ms MUSE SYSTEM QRS Duration 132 ms MUSE SYSTEM Q-T Interval 496 ms MUSE SYSTEM QTC Calculated (Bezet) 474 ms MUSE SYSTEM Calculated P [place] 70 degrees MUSE SYSTEM Calculated R [place] -33 degrees MUSE SYSTEM Calculated T [place] 63 degrees MUSE SYSTEM INTERPRETATION Sinus bradycardia [...] NIGHTLY, First dose (after last modification) on [facility] 05/04/14 at 2200, Until Discontinued, Routine Given 05/04/2014 10:16 PM EDT 14 mg nitroGLYcerin 50 mg/250 mL (200 mcg/mL) infusion 1 dose, Starting on [facility] 05/04/14 at 0829, Until [facility] 05/04/14 at 0845, HERLINDA ELAM: cabinet override [...] infusion 200 mL/hr, Intravenous, CONTINUOUS, Starting on [facility] 05/04/14 at 1030, Until Soumya 05/04/14 at [...] pump inhibitor 1200 (Not Given - Provider: Kalyi Mccormack RN - Reason: Medication not available) [...] Patch documented in this encounter Care Teams Solderer Assembler Relationship Specialty Start Date End Date Raphael Dixon MD [address] [place] [address] PCP - General 05/04/14 07/23/22 documented as of this encounter
--- OUTSIDE RECORDS SUMMARY | 2024-06-27 09:44 | XMS_ITS | Encounter Summary ---
[place] [address] Care Team Providers Care Acid Adjuster Name Role Phone Ayah Albrecht MD Primary Care Provider [phone] Encounter Details Date Type Department Care Team (Late st Contact Info) Description 05/14/2021 Telephone [place] [address] Shireen Fulton PA [facility] [place] [address] Social History Tobacco Use Types Packs/Day Years [...] Will hold off on Pletal for now. RUDDY Verdugo documented in this encounter Plan of Treatment Upcoming Encounters Date Type Department Care Team (Late st Contact Info) Description 06/29/2024 2:40 PM EDT Office Visit Dermatology at [facility] [address] [place] [address] Emmanuelle Yeboah MD [facility] [address] [place] [address] documented as of this encounter Visit Diagnoses Not on filedocumented in this encounter Care Teams Acid Adjuster Relationship Specialty Start Date End Date Ayah Albrehct MD [address] [address] [facility] [place] [address] PCP - General 05/04/14 07/23/22 documented as of this encounter
--- OUTSIDE RECORDS SUMMARY | 2024-06-27 09:44 | XMS_ITS | Encounter Summary ---
[place] [address] Care Team Providers Care Help Desk Agent Name Role Phone Ayah Albrecht MD Primary Care Provider [phone] Reason for Referral * Diagnostic Test (Routine) - Closed Specialty Diagnoses / Procedures Referred By Contac t Referred To Contact Diagnoses PVD (peripheral vascular disease) with claudication Procedures BONITA, legs, multiple levels Shireen Fulton PA [facility] [place] [address] [facility] Vascular Lab [address] [place] [phone] Referral ID Status Reason Start Date Expiration Date V isits Requested Visits Authorized [id number] Closed Specialty Service Requested 04/24/2021 04/24/2022 1 1 Reason for Visit * Consultation (Routine) - Closed Specialty Diagnoses / Procedures Referred By Contac t Referred To Contact Vascular Surgery Diagnoses Peripheral vascular disease, unspecified Ayah Albrecht MD [address] [place] [address] [facility] Vascular Surg [address] [place] [phone] Referral ID Status Reason Start Date Expiration Date V isits Requested Visits Authorized [id number] Closed Consult, Test & Treat Connection Center PCP Updated and/or Approved 04/15/2021 04/15/2022 6 6 Encounter Details Date Type Department Care Team (Late st Contact Info) Description 04/24/2021 11:30 AM EDT Office [place] [address] Shireen Fulton PA [facility] [place] [address] PVD (peripheral vascular disease) with claudication Social [...] (N) CVA ?? Cardiovascular History: (N) Previous MD (Y) Angina (N) CHF (N) Arrythmia (Y) [...] PM EDT Office Visit Dermatology at [facility] [address] [place] [address] Emmanuelle Yeboah MD [facility] [place] [address] documented as of this encounter Results * BONITA, legs, multiple levels (07/23/2021 9:51 AM EDT) VB Text Report Department: Vascular Surgery Lab Patient: [id number] (KERI BROUSSARD) CPT: 53367 ICD10: I77.1;I73.9 Referring Physician: BOAZ BAUTISTA ?? Indications: ??Claudication, known PAD. ??? change in ABIs. Diabetes mellitus: No ICD10 Diagnosis Code: I73.9 Findings: Right ?Pressure (mm Hg) ?? BONITA ??Waveform ? Brachial Artery ?161 ? Dorsalis Pedis (Ankle) Artery ?88 ?0.54 ??Monophasic ? Posterior Tibial (Ankle) Artery ??96 ?0.59 ??Bibb-Biphasic ?? Left ? Pressure (mm Hg) ?? [...] unspecified documented in this encounter Care Teams Help Desk Agent Relationship Specialty Start Date End Date Ayah Albrecht MD [address] [place] [address] PCP - General 05/04/14 07/23/22 documented as of this encounter
--- OUTSIDE RECORDS SUMMARY | 2024-06-27 09:44 | XMS_ITS | Encounter Summary ---
[facility] Organization [facility] [place] [address] Care Team Providers Care Net Front End Developer Name Role Phone Ayah Albrecht MD Primary Care Provider Encounter Details Date Type Department Care Team (Late st Contact Info) Description 05/03/2014 Orders Only Cardiology at [address] [phone] Russell Whitman MD [facility] [place] [address] Social History Tobacco Use Types Packs/Day Years [...] PM EDT Office Visit Dermatology at [facility] [address] [place] [address] Emmanuelle Yeboah MD [facility] [place] [address] documented as of this encounter Procedures Procedure [...] is a Non-reportable exam Russell Whitman MD [facility] FILM LIBRARY ORD ERABLES documented in this encounter Visit Diagnoses Not on filedocumented in this encounter Care Teams Net Front End Developer Relationship Specialty Start Date End Date Ayah Albrecht MD [address] [facility] [place] [place] [address] PCP - General 05/04/14 07/23/22 documented as of this encounter
--- OUTSIDE RECORDS SUMMARY | 2024-06-27 09:44 | XMS_ITS | Encounter Summary ---
Author Organization [facility] [place] [address] Care Team Providers Care E Commerce Director Name Role Phone Davonte Dickson MD Primary Care Provider + Encounter Details Date Type Department Care Team (Late st Contact Info) Description 05/03/2014 Telephone Cardiology at [address] [phone] Andry Fernandez MD [facility] [place] [address] Social History Tobacco Use Types Packs/Day Years Used Date Smoking Tobacco: Never Assessed Sex and Gender Information Value Date Recorded Sex Assigned at Not on file Gender Identity Not on file Sexual Orientation Not on file documented as of this encounter Miscellaneous Notes * Telephone Encounter - Andry Fernandez - 05/03/2014 3:32 PM EDT I spoke to Dr. Garcia in the [facility] ER about this 63 yo woman with [...] normal. Plan is to admit her to [facility] now for cycling of enzymes, heparin gtt and ASA and bring her to [facility] as soon as we have more discharges / bed availability. I also spoke with the director fraud partner of Dr. Greenberg at [facility] to appraise him of the situation. He will call back with more information, or if there is a need to expedite the transferhere. documented in this encounter Plan of Treatment Upcoming Encounters Date Type Department Care Team (Late st Contact Info) Description 06/29/2024 2:40 PM EDT Office Visit Dermatology at [facility] [address] [place] [address] Emmanuelle Yeboah MD [facility] [address] [place] [address] documented as of this encounter Visit Diagnoses Not on filedocumented in this encounter Care Teams E Commerce Director Relationship Specialty Start Date End Date Davonte Dickson MD [address] [place] [address] PCP - General 10/01/10 05/03/14 documented as of this encounter
--- NOTE | 2024-06-27 09:56 | W.ED.GENAD ---
Discharge Plan Disposition Patient Disposition: Home Condition: Improving Discharge Details Clinical Impression: Colitis Primary Care Provider: Xena Page ED Provider: Shawn Wilder Home Meds and New Rx's Prescriptions: New amoxicillin-pot clavulanate 875-125 mg tablet 1 tab PO BID 7 Days Qty: 14 0RF No Action albuterol sulfate 90 mcg/actuation HFA aerosol inhaler 1 puff inhalation QID PRN (Reason: shortness of breath or wheezing) Qty: 1 2RF Rx Instructions: 1-2 puffs up to 4 times a day as needed for shortness of breath gabapentin 300 mg capsule 300 mg PO QHS Qty: 90 1RF rosuvastatin [Crestor] 10 mg tablet 10 mg PO DAILY Qty: 90 3RF cyclobenzaprine 5 mg tablet 2.5 mg PO QHS PRN (Reason: muscle spasm) Combivent Respimat 20-100 mcg/actuation mist 1 puff inhalation Q4H Qty: 4 5RF cholecalciferol (vitamin D3) 50 mcg (2,000 unit) capsule 50 mcg PO DAILY 90 Days Qty: 90 4RF Aimovig Autoinjector 140 mg/mL auto-injector 140 mg subcut QMONTH Qty: 3 4RF vortioxetine 5 mg tablet 5 mg PO DAILY Qty: 30 2RF hydroxyzine HCl 25 mg tablet 25 mg PO QHS PRN (Reason: insomnia/anxiety) Qty: 30 2RF aspirin [Adult Low Dose Aspirin] 81 mg tablet,delayed release (DR/EC) 81 mg PO DAILY Rx Instructions: per note dated 04/24/21 [facility] Vascular cgc atenolol 25 mg tablet 25 mg PO DAILY Qty: 90 3RF clobetasol 0.05 % ointment 1 applic topical .COMPLEX Rx Instructions: 1 applic topically twice weekly x3 months, then 3 times a week for maintenance; estradiol 0.01 % (0.1 mg/gram) cream See Rx Instructions vaginal .COMPLEX Rx Instructions: Thin amount vaginally twice weekly x3 months, then 3 times a week for maintenance; ketoconazole 2 % shampoo 1 applic topical .COMPLEX Rx Instructions: 1 applic topically 2-3 times weekly. Lather on scalp, leave on 3-5 minutes, then rinse.; losartan 50 mg tablet 50 mg PO DAILY Qty: 90 3RF Rx Instructions: MAY NEED DECREASED pantoprazole 40 mg tablet,delayed release (DR/EC) See Rx Instructions .ROUTE .COMPLEX Qty: 90 1RF Dose Instruction: TAKE ONE TABLET BY MOUTH EVERY DAY Rx Instructions: TAKE ONE TABLET BY MOUTH EVERY DAY meclizine 25 mg tablet 25 mg PO TID PRN Patient Comments: TAKE ONE TABLET BY MOUTH THREE TIMES A DAY NEEDED FOR 7 DAYS FOR VERTIGO acetaminophen [Pain Reliever ES(acetaminophn)] 500 MG tablet 1,000 mg PO PRN PRN HPI General Date/Time Provider Initiated Documentation: 06/27/24 09:33. HPI Narrative: 73-year-old female referred in by her primary care physician for evaluation of 1 week of right lower quadrant abdominal discomfort Related Data Home Medications ?Medication ?Instructions ?Recorded ?Confirmed acetaminophen 500 mg tablet (Pain 1,000 mg PO PRN PRN 05/25/18 06/27/24 Reliever Extra Strength (acetaminophen)) aspirin 81 mg tablet,delayed 81 mg PO DAILY 04/24/21 06/27/24 release (Adult Low Dose Aspirin) cholecalciferol (vitamin D3) 50 50 mcg PO DAILY 90 days #90 caps 03/10/23 06/27/24 mcg (2,000 unit) capsule atenolol 25 mg tablet 25 mg PO DAILY #90 tabs 01/10/24 06/27/24 erenumab-aooe 140 mg/mL 140 mg subcut QMONTH #3 mL 02/03/24 06/27/24 subcutaneous auto-injector (Aimovig Autoinjector) albuterol sulfate 90 mcg/actuation 1 puff inhalation QID PRN 03/04/24 06/27/24 aerosol inhaler shortness of breath or wheezing #1 inh gabapentin 300 mg capsule 300 mg PO QHS #90 caps 03/04/24 06/27/24 rosuvastatin 10 mg tablet (Crestor) 10 mg PO DAILY #90 tabs 03/06/24 06/27/24 cyclobenzaprine 5 mg tablet 2.5 mg PO QHS PRN muscle spasm 03/15/24 06/27/24 ipratropium 20 mcg-albuterol 100 1 puff inhalation Q4H #4 grams 03/15/24 06/27/24 mcg/actuation mist for inhalation (Combivent Respimat) clobetasol 0.05 % topical ointment 1 applic topical .COMPLEX 03/25/24 06/27/24 estradiol 0.01% (0.1 mg/gram) See Rx Instructions vaginal 03/25/24 06/27/24 vaginal cream .COMPLEX ketoconazole 2 % shampoo 1 applic topical .COMPLEX 03/25/24 06/27/24 losartan 50 mg tablet 50 mg PO DAILY #90 tabs 04/25/24 06/27/24 pantoprazole 40 mg tablet,delayed See Rx Instructions .Route 05/18/24 06/27/24 release .COMPLEX #90 tabs hydroxyzine HCl 25 mg tablet 25 mg PO QHS PRN insomnia/anxiety 06/20/24 06/27/24 #30 tabs vortioxetine 5 mg tablet 5 mg PO DAILY #30 tabs 06/20/24 06/27/24 amoxicillin 875 mg-potassium 1 tab PO BID 7 days #14 tabs 06/27/24 clavulanate 125 mg tablet meclizine 25 mg tablet 25 mg PO TID PRN 06/27/24 06/27/24 Previous Rx's ?Medication ?Instructions ?Recorded cholecalciferol (vitamin D3) 50 50 mcg PO DAILY 90 days #90 caps 03/10/23 mcg (2,000 unit) capsule atenolol 25 mg tablet 25 mg PO DAILY #90 tabs 01/10/24 erenumab-aooe 140 mg/mL 140 mg subcut QMONTH #3 mL 02/03/24 subcutaneous auto-injector (Aimovig Autoinjector) albuterol sulfate 90 mcg/actuation 1 puff inhalation QID PRN 03/04/24 aerosol inhaler shortness of breath or wheezing #1 inh gabapentin 300 mg capsule 300 mg PO QHS #90 caps 03/04/24 rosuvastatin 10 mg tablet (Crestor) 10 mg PO DAILY #90 tabs 03/06/24 ipratropium 20 mcg-albuterol 100 1 puff inhalation Q4H #4 grams 03/15/24 mcg/actuation mist for inhalation (Combivent Respimat) losartan 50 mg tablet 50 mg PO DAILY #90 tabs 04/25/24 pantoprazole 40 mg tablet,delayed See Rx Instructions .Route 05/18/24 release .COMPLEX #90 tabs hydroxyzine HCl 25 mg tablet 25 mg PO QHS PRN insomnia/anxiety 06/20/24 #30 tabs vortioxetine 5 mg tablet 5 mg PO DAILY #30 tabs 06/20/24 amoxicillin 875 mg-potassium 1 tab PO BID 7 days #14 tabs 06/27/24 clavulanate 125 mg tablet Allergies Allergy/AdvReac Type Severity Reaction Status Date / Time Sulfa (Sulfonamide Allergy Intermediate swelling, Verified 06/27/24 09:41 Antibiotics) hives, itching oxycodone HCl (From Percocet) Allergy Unknown nightmares Verified 06/27/24 09:41 cilostazol AdvReac Intermediate Diarrhea Verified 06/27/24 09:41 omeprazole AdvReac Intermediate bloating, Verified 06/27/24 09:41 itching diarrhea, rotigotine AdvReac Intermediate hallucinati Verified 06/27/24 09:41 ons General Stated Complaint: Abd Prob DAVID: 3 Exam Narrative Exam Narrative: Mildly uncomfortable Moist mucous membranes tongue secretions normal voice Respiratory distress speaking full sentences Abdomen soft nondistended however patient does have subjective tenderness in the right lower quadrant without guarding or rebounding Alert oriented moving all extremities without deficit Course Vital Signs Vital signs: Vital Signs Temperature 36.7 C 06/27/24 09:43 Pulse 61 06/27/24 09:43 Respiratory Rate 16 06/27/24 09:43 Blood Pressure 123/71 06/27/24 09:43 Pulse Oximetry 99 06/27/24 09:43 Temperature 36.7 C 06/27/24 09:43 Temperature Source Temporal Artery Scan 06/27/24 09:43 Pulse 61 06/27/24 09:43 Respiratory Rate 16 06/27/24 09:43 Respiratory Effort Normal, Non-Labored 06/27/24 09:46 Blood Pressure 123/71 06/27/24 09:43 Blood Pressure Position Sitting 06/27/24 09:43 Pulse Oximetry 99 06/27/24 09:43 Oxygen Delivery Method Room Air 06/27/24 09:43 Oxygen Flow Rate 0 06/27/24 09:43 Pain Level 9 06/27/24 09:43 Comment no pain meds today 06/27/24 09:43 Medical Decision Making 73-year-old female presents with 1 week of right lower quadrant abdominal discomfort some urinary urgency, patient has history of hysterectomy, nonperitoneal however does have subjective discomfort on palpation of right lower quadrant, afebrile nontoxic hemodynamically stable. Consider appendicitis versus colitis versus enteritis versus UTI lower suspicion for pyelonephritis or kidney stone lower suspicion for aortic pathology. Screening labs imaging close reassessment to determine disposition 12: 37 resting comfortably no acute distress. Evidence of colitis. Will start on Augmentin. Home care instructions and return precautions given Quality:SDOH Health Related Social Needs: No Data to Display PFSH All Active Problems (Updated 06/27/24 @ 12:37 by Shawn Wilder MD) Colitis (Acute) Abdominal pain (Acute) Vulvar atrophy (Acute) Telangiectasias (Acute 03/23/24) Seborrheic keratoses (Acute 03/23/24) Multiple melanocytic nevi (Acute 03/23/24) Seborrheic dermatitis (Acute 03/23/24) Lichen sclerosus (Acute 03/23/24) Neuritis of left ankle (Acute) Severe sprain of left ankle (Acute) Pain in right foot (Acute) Sprain of left ankle (Acute) Neuropathy (Acute) Left foot pain (Acute) Essential hypertension (Chronic 11/13/11) Postprandial abdominal bloating (Acute) Uncomfortable, lethargic .. and re-started post semaglutide d/c.. Encounter for weight management (Acute) Lost wt w/ semaglutide; bloating stopped; energy encreased Metabolic syndrome (Acute) COVID (Acute ~10/2023) Dyspepsia (Acute) Atherosclerosis (Acute) of several aa .. seeing [facility] Vasc .. Neck stiffness (Acute) Hyponatremia (Acute ~07/2023) Renal artery stenosis (Acute) Elevated glucose level (Acute) Weight gain, abnormal (Acute) Pt is very stressed and disappointed; Hx emotional eating and trying to quit smkg .. [ ] semiglutide? vortiox? phent? Stenosis of iliac artery (Acute) severe pr CT ([facility], 06/2023) COPD (chronic obstructive pulmonary disease) (Chronic) Anxiety (Acute 11/13/11) Duloxetine decreased, 04/2023 Carotid artery occlusion (Chronic 11/13/11) MILD Depression (Acute 06/12/16) GERD (gastroesophageal reflux disease) (Acute 08/21/14) Esophageal pH monitoring 07-07-14 for chest pain. During chest pain episode had reflux 10% of the time Myalgia and myositis (Acute 11/13/11) Osteoporosis (Chronic 11/13/11) DEXA (2017) Osteoporosis. Reclast x 2017, 2017, 2019. [ ] 2019, 2020, 2021 Pulmonary emphysema (Chronic 06/12/16) Spinal stenosis, lumbar region, with neurogenic claudication (Chronic 11/13/11) Chiro, PT (dry needling) helps .. needs to keep it up. Wkg on core mm strength. 07/2022, ik Tobacco dependence (Acute 11/13/11) Down to 6/day .. Atherosclerotic cardiovascular disease (Acute) Left bundle branch block (LBBB) (Acute) Restless leg (Acute) Neuro? Neuropathic? Moderate relief with ropinirole (2021) Mild cognitive impairment (Acute) Marlene Huff, joined us 04/24/23 Mild obstructive sleep apnea (Acute) CPAP may be helping .. 11/27/21 [facility] Sleep note 01/16/22 Sleep Clinic, f/u 04/2022 Migraine headache without aura (Acute) Irritable bowel syndrome with constipation (Acute) Arthritis of hand (Acute) Incontinence of bowel (Acute) Episodic Pelvic floor weakness in female (Acute) Fatigue (Acute) Cervical (neck) region somatic dysfunction (Acute) disc narrowing (C5-6-7) per MRI, 06/08/23 [ ] [facility] Spine Epigastric pain (Acute) Medical History Peripheral vascular disease, unspecified (04/24/21) Moderate RLE PAD, Mild LLE PAD , BONITA's [facility] Hyperkalemia Encounter for diagnostic colonoscopy due to change in bowel habits Fibromyalgia Peripheral arterial disease BONITA ([facility])(07/26/22)Mod RT, Mild LFT TTH (tension-type headache) SOB (shortness of breath) on exertion Significant worsening x weeks, 03/2021 Chest pain negative cardiac w/u Vulvar pruritus Not responsive to topical estrogen. 09/2019 patient treated with clobetasol cream 11/2019 symptoms improving we will continue twice weekly Lumbar radicular syndrome Non-cardiac chest pain (05/01/15) Irritable colon (11/13/11) Surgical History History of esophagogastroduodenoscopy (~05/2023) Hx of hand surgery Oophrectomy, Both Abdominal hysterectomy Colonoscopy - IV Sedation (11/22/21) 07/07/14 Dr. Meraz Family History Sister Essential hypertension Brother Essential hypertension Sister Rheumatoid arthritis Hypertension Social History Smoking/Tobacco Use Status: Current every day Tobacco Type: cigarettes Tobacco: How many years used: 50 Quit status: quit date established Smoking risk assessment performed?: Yes Alcohol Intake: current Alcohol Intake frequency: a few times a week Alcohol type: beer Drug use: Never Substance use type: does not use Caregiver/Support person: No Household members: spouse and other Details: Eunice reese 50yrs Housing: house Number of Children: 2 number of grandchildren: 1 Communication Needs: Corrective Lenses current occupation: retired Current gender identity: female What is your relationship status?: Panel score (0-1 are the most socially isolated patients): 1 What type of physical activity do you participate in: walking Duration: 30-45 minutes/day Frequency: 5-6 times per week Seatbelt use: always Drive intox or ride w/intox transfer driver: No Working smoke detector in home: Yes Fire extinguisher in home: Yes Carbon monox detector in home: Yes Do you feel safe at home: Yes (unable to assess privately) Do you feel safe in your relationship?: Yes Victim of physical abuse: No Victim of emotional abuse: No Victim of sexual abuse: No
--- NOTE | 2024-06-27 10:15 | RT.EKG_ITS ---
APPROVED REPORT Exam: Resting ECG Reason for Exam: pre medication Patient Location: E HR:58 bpm ECG Measurements Heart Rate 58 AXIS NJ 226 P 54 QRSd 146 QRS -24 QT 487 T 130 QTc 480 Conclusion Sinus bradycardia...rate< 60 Prolonged NJ interval...NJ >220, V-rate 50- 90 Left bundle branch block...QRSd>120, broad/notched R sinus bradycardia, left axis, LBBB old
[2024-06-27 10:25] LABS: Abs Immature Grans 0.02 10^3/uL (0.0-0.06); Absolute Basophil Count 0.07 10^3/uL (0.0-0.2); Absolute Eosinophil Count 0.08 10^3/uL (0.0-0.7); Absolute Lymphocyte Count 1.67 10^3/uL (1.2-3.4); Absolute Monocyte Count 0.73 10^3/uL (0.1-0.8); Basophils % 0.9 %; HCT 44.4 % (36.0-46.0); HGB 14.7 g/dL (11.2-15.7); Immature Grans % 0.3 %; Lymphocytes % 21.5 %; MCH 30.3 pg (27.0-33.0); MCHC 33.1 % (32.0-36.0); MCV 92 fL (80-95); MPV 9.8 fL (8.0-11.0); Monocytes % 9.4 %; Neutrophils % 66.9 %; Platelet Count 244 10^3/uL (130-400); RBC 4.85 10^6/uL (3.93-5.22); RDW 14.1 % (11.7-14.6); RDW-SD 47.6 fL; WBC 7.77 10^3/uL (4.4-10.8)
[2024-06-27] MEDS: Normal Saline 1,000 ML 1000 ML IV (10:25)
[2024-06-27 10:28] LABS: Bilirubin Negative (Negative); Blood Negative (Negative); Clarity Clear (Clear); Glucose Negative (Negative); Ketones Negative (Negative); Leukocyte Esterase Negative (Negative); Nitrite Negative (Negative); Urobilinogen 0.2 mg/dL (Up to 0.2)
[2024-06-27 10:46] LABS: ALT 19 U/L (14-59); AST 21 U/L (15-37); Albumin 3.9 g/dL (3.4-5.0); Alkaline Phosphatase 116 U/L (46-116); Anion Gap 10.4 mmol/L (3-11); BUN 21 mg/dL (7-18); Bilirubin, Total 0.33 mg/dL (0.2-1.0); CO2 24.6 mmol/L (21.0-32.0); CREATININE 1.3 mg/dL (0.55-1.02); Chloride 103 mmol/L (98-107); Estimated GFR 42.88 (mL/min/1.73m2); Glucose 104 mg/dL (74-106); Lipase 44 U/L (16-77); Sodium 138 mmol/L (136-145); Total Protein 7.8 g/dL (6.4-8.2)
[2024-06-27 10:49] LABS: Calcium 9.3 mg/dL (8.5-10.1)
[2024-06-27] MEDS: Ondansetron 4 MG/2 ML VIAL IVP (10:59)
[2024-06-27] MEDS: Normal Saline - Diluent 50 ML VIAL IJ (11:25)
[2024-06-27] MEDS: Omnipaque 350 MG/ML 100 ML BTL IJ (11:26)
[2024-06-27] MEDS: Amoxicillin 875/Clav. 125 TAB PO (12:53)
--- NOTE | 2024-06-29 10:31 | NUR.NOTE ---
Nursing Note: Received call from patient that she thinks she's having an allergic reaction to the Augmentin and was itching/rash and trouble breathing yesterday. Sx resolved today after skipping her abx dose. Tried to get into her PCP and was unable, calling to see if we can offer further advice. Pt was instructed that she should avoid taking anymore of the medication and be seen urgently to assess her sx and switch her antibiotics. Pt states she doesn't wish to return, she will try to get into urgent care or come here if unable to be seen there.
== END 2024-06-27 13:10 | disposition home or self-care (01) ==
PROVIDERS: Emergency Provider Emergency Medicine; PCP Nurse Practitioner
DX: R10.31 Right lower quadrant pain (principal); K52.9 Noninfective gastroenteritis and colitis, unspecified
CPT/HCPCS: 36415; 80053; 83690; 93005; 96374; 99285; 74177; 81003; 85025; 93010; 99283; J2405; J3490

== ENCOUNTER 2024-07-13 18:47 | Emergency (ER) | payer MEDICARE, OTHER, SELFPAY ==
[2024-07-13] VITALS (11 sets, daily range): BP systolic 111–155; BP diastolic 64–78; PULSE 60–64; RESP 16; TEMP 36.1; O2SAT 94–99
--- OUTSIDE RECORDS SUMMARY | 2024-07-13 18:54 | XMS_ITS | Encounter Summary ---
Author Organization [facility] [place] [address] Care Team Providers Care Investment Broker Name Role Phone Ayah Albrecht MD Primary Care Provider [phone] Encounter Details Date Type Department Care Team (Late st Contact Info) Description 07/23/2021 10:00 AM EDT Tech [place] [address] Justine Delgado [place] PVD (peripheral vascular disease) [...] Care Team (Late st Contact Info) Description 08/16/2024 10:40 AM EDT Office Visit Dermatology at [facility] [address] [place] [address] [facility] [address] [place] [place] [address] documented as of this encounter Procedures Procedure Name Priority Date/Time Associated Diagnosis Comments BONITA, LEGS, MULTIPLE LEVELS Routine 07/23/2021 9:51 AM EDT PVD (peripheral vascular disease) with claudication documented in this encounter Results * BONITA, legs, multiple levels (07/23/2021 9:51 AM EDT) VB Text Report Department: Vascular Surgery Lab Patient: [id number] (KERI BROUSSARD) CPT: 87904 ICD10: I77.1;I73.9 Referring Physician: BOAZ BAUTISTA ?? Indications: ??Claudication, known PAD. ??? change in ABIs. Diabetes mellitus: No ICD10 Diagnosis Code: I73.9 Findings: Right ?Pressure (mm Hg) ?? BONITA ??Waveform ? Brachial Artery ?161 ? Dorsalis Pedis (Ankle) Artery ?88 ?0.54 ??Monophasic ? Posterior Tibial (Ankle) Artery ??96 ?0.59 ??Calvert-Biphasic ?? Left ? Pressure (mm Hg) ?? [...] Bautista MD VASCULAR ORDERABLES Performing Organization Address City/State/[facility] Co de Phone Number [facility] documented in this encounter Visit Diagnoses Diagnosis PVD (peripheral vascular disease) with claudication Peripheral vascular disease, unspecified documented in this encounter Care Teams Investment Broker Relationship Specialty Start Date End Date Ayah Albrecht MD [address] [place] [address] PCP - General 05/04/14 07/23/22 documented as of this encounter
--- OUTSIDE RECORDS SUMMARY | 2024-07-13 18:54 | XMS_ITS | Encounter Summary ---
Author Organization [facility] [place] [address] Care Team Providers Care Foil Wrapper Name Role Phone Veronica Meek DO Primary Care Provider [phone] Encounter Details Date Type Department Care Team [...] 10:40 AM EDT Office Visit Dermatology at [facility] [address] [place] [address] Emmanuelle Yeboah MD [facility] [place] [address] documented as of this encounter Visit Diagnoses Not on filedocumented in this encounter Care Teams Foil Wrapper Relationship Specialty Start Date End Date Veronica Meek DO [address] [facility] [place] [address] PCP - General Family Medicine 07/24/22 documented as of this encounter
--- OUTSIDE RECORDS SUMMARY | 2024-07-13 18:54 | XMS_ITS | Encounter Summary ---
[place] [address] Care Team Providers Care City Engineer Name Role Phone Ayah Albrecht MD Primary Care Provider [phone] Encounter Details Date Type Department Care Team (Late st Contact Info) Description 06/24/2021 Telephone [place] [phone] Veronica Maldonado RN Social History Tobacco Use [...] RN - 06/24/2021 3:38 PM EDT This senior technical writer fielded phone call regarding medications. States she saw RUDDY Neves, who wantedto start her on something for arterial disease but wanted to wait as the patient was on Trazadone. Patient calling to state she is no longer on trazadone and is taking melatonin instead. 05/14/21 3V note indicates a trial of Pletal. This senior technical writer will send electronic message to Janay Fulton for clarification and follow up. Patient agrees with this plan. documented in this encounter Plan of Treatment Upcoming Encounters Date Type Department Care Team (Late st Contact Info) Description 08/16/2024 10:40 AM EDT Office Visit Dermatology at [address] [place] [address] Emmanuelle Yeboah MD [facility] [address] [place] [address] documented as of this encounter Visit Diagnoses Not on filedocumented in this encounter Care Teams City Engineer Relationship Specialty Start Date End Date Ayah Albrecht MD [address] [facility] [place] [address] PCP - General 05/04/14 07/23/22 documented as of this encounter
--- OUTSIDE RECORDS SUMMARY | 2024-07-13 18:54 | XMS_ITS | Encounter Summary ---
Author Organization [facility] Address [address] [place] [address] Care Team Providers Care Sales Activity Manager Name Role Phone Unavailable Primary Care Provider Unavailabl e Encounter Details Date Type Department Care Team (Late st Contact Info) Description 11/25/2007 Results Only [facility] [address] [place] [address] Jourdan Duarte MD [address] [place] [id number] Social History Tobacco Use Types Packs/Day Years [...] ? KERI BROUSSARD ? Accession #: ? [id number] ? : ? 1950 (Age: 57) ??F [...] specimen is entirely submitted as (E). ??(Heidi Gamble)/[facility] End of Report CHAITANYA STANTON 11/25/2007 11/26/2007 9:1 8 EST Jourdan Duarte MD PATHOLOGY ORDERABLE S CHAITANYA STANTON [address] [place] [address] documented in this encounter Visit Diagnoses Not on filedocumented in this encounter
--- OUTSIDE RECORDS SUMMARY | 2024-07-13 18:54 | XMS_ITS | Referral Summary ---
Author Organization [facility] Address [address] [place] [address] Care Team Providers Care Decal Applier Name Role Phone Davonte Dickson MD Primary Care Provider U navailable Social History Tobacco Use Types Packs/Day Years Used Date Smoking Tobacco: Never Assessed Sex and Gender Information Value Date Recorded Sex Assigned at Not on file Gender Identity Not on file Sexual Orientation Not on file Plan of Treatment Not on file Care Teams Decal Applier Relationship Specialty Start Date End Date Davonte Dickson MD PCP - General 07/13/14
--- OUTSIDE RECORDS SUMMARY | 2024-07-13 18:54 | XMS_ITS | Clinical Summary ---
Author Organization [facility] [place] [address] Care Team Providers Care Fisher Lampara Net Name Role Phone Veronica Meek DO Primary Care Provider +1- [phone] Allergies Active Allergy Reactions Criticality Noted Date [...] 10:40 AM EDT Office Visit Dermatology at [facility] [address] [place] [address] Emmanuelle Yeboah MD [facility] [address] [place] [address] Health Maintenance Due Date Last Done Comments [...] Lipid panel (fasting) (05/05/2014 4:01 AM EDT) [facility] Signature Cholesterol, Total 153 <=199 mg/dL [facility] Comment: Recommendations of the NCEP Adult Treatment Panel for the following risk cutoff thresholds for the [place] population: Desirable: <200 mg/dL Borderline High: 200-239 mg/dL High: > or = 240 mg/dL Triglyceride 90 <=149 mg/dL [facility] Comment: Reference Range: Normal triglycerides: ??<150 mg/dL Borderline high: ??150-199 mg/dL High: ??200-499 mg/dL Very high: ??>lz=138 mg/dL VIDYA 2001; 285(19):5800-8764 HDL Cholesterol 83 >=40 mg/dL [facility] Comment: Reference range: ??Low HDL: ?? < 40 mg/dL ??Normal: ?40-60 mg/dL ??Desirable: > 60 mg/dL VIDYA 2001; 285(19):2797-0286 LDL Cholesterol 52 <=99 mg/dL [facility] Comment: Reference range: ?? Optimal: ?<100 mg/dL ?? Near Optimal/Above Optimal: ?? 100-129 mg/dL ?? Borderline high: ?130-159 mg/dL ?? High: ? 160-189 mg/dL ?? Very high: ?>pu=272 mg/dL VIDYA 2001: 285(19):7980-2749 Cholesterol/HDL Ratio 1.8 ratio [facility] Comment: A Cholesterol to HDL ratio below 4:1 is desirable. ??Studies suggest that increased CAD risk occurs at ratios above 5 for females and above 6 for men. ? [place] Heart Association ??(http://www.americanheart.org) ? Fiordaliza Int Med, 1994; 121:641 ? AM J Med, 1998; 105(1A):48S Blood specimen (specimen) 05/05/2014 4:01 AM EDT 05/05/2014 4:22 AM EDT Narrative Resulting Agency Comment Spec In Lab Timmy Ly MD CHEMISTRY ORDERABLES [facility] from Last 3 Months or Most Recently Relevant to Health Maintenance Advance Directives Documents on File Type Date Recorded Patient Bulk Sealer Operator Siat nicole Personal Bulk Sealer Operator 07/17/2023 10:29 AM henny hernandez Personal Bulk Sealer Operator 07/17/2023 10:28 AM skyla tay * Full Code (Latest Code Status on File) Date Activated Date Inactivated Comments 05/04/2014 8:39 PM 05/05/2014 2:21 PM Question Answer Comments Does patient have decision m aking capacity? Yes, order is based on Patient wishes. Care Teams Fisher Lampara Net Relationship Specialty Start Date End Date Veronica Meek DO [address] [place] [address] PCP - General Family Medicine 07/24/22
--- OUTSIDE RECORDS SUMMARY | 2024-07-13 18:54 | XMS_ITS | Encounter Summary ---
Author Organization [facility] Address [address] [place] [address] Care Team Providers Care Build And Release Manager Name Role Phone Unavailable Primary Care Provider Unavailabl e Encounter Details Date Type Department Care Team (Late st Contact Info) Description 09/30/2000 Results Only [facility] conversion [address] [place] [address] Veronica Diaz, HELGA Social History Tobacco Use [...] ? KERI BROUSSARD ? Accession #: ? [id number] : ? 1950 (Age: 50) ??F ?Collect Date: ? 09/30/2000 Location: ? [facility] ? Receive Date: ? 10/06/2000 Provider: ?VERONICA DIAZ ORNAMENT SETTER Copy to: ? Specimen/Source: ?ThinPrep Pap Test, [...] NP PATHOLOGY ORDERABLES [facility] [address] [place] [address] documented in this encounter Visit Diagnoses Not on filedocumented in this encounter
--- OUTSIDE RECORDS SUMMARY | 2024-07-13 18:54 | XMS_ITS | Encounter Summary ---
Author Organization [facility] [place] [address] Care Team Providers Care Home School Teacher Name Role Phone Veronica Meek DO Primary Care Provider +1- [phone] Encounter Details Date Type Department Care Team [...] 10:40 AM EDT Office Visit Dermatology at [facility] [address] [place] [address] Emmanuelle Yeboah MD [facility] [place] [address] documented as of this encounter Visit Diagnoses Not on filedocumented in this encounter Care Teams Home School Teacher Relationship Specialty Start Date End Date Veronica Meek DO [address] [facility] [address] PCP - General Family Medicine 07/24/22 documented as of this encounter
--- OUTSIDE RECORDS SUMMARY | 2024-07-13 18:54 | XMS_ITS | Encounter Summary ---
Author Organization [facility] [place] [address] Care Team Providers Care Etched Circuit Processor Name Role Phone Veronica Meek Primary Care Provider +1- [phone] Encounter Details Date Type Department Care Team (Late st Contact Info) Description 07/10/2023 2:30 PM EDT Tech [place] [address] Jocelyn Padron PVD (peripheral vascular disease) with [...] 10:40 AM EDT Office Visit Dermatology at [facility] [address] [place] [address] Emmanuelle Yeboah MD [facility] [place] [address] documented as of this encounter Procedures Procedure Name Priority Date/Time Associated Diagnosis Comments BONITA, LEGS, MULTIPLE LEVELS Routine 07/10/2023 2:22 PM EDT PVD (peripheral vascular disease) with claudication documented in this encounter Results * BONITA, legs, multiple levels (07/10/2023 2:22 PM EDT) Pathologist [facility] VB Text Report Department: Vascular Surgery Lab Patient: [id number] (KERI BROUSSARD) CPT: 81820 Referring Physician: JESUS KAM APRN ?? Indications: Claudication ? Perfusion Diabetes mellitus: No Findings: Right ?Pressure (mm Hg) ?? BONITA ??Waveform ? Brachial Artery ?189 ? Dorsalis Pedis (Ankle) Artery ?122 ? 0.65 ??Cedar-Biphasic ?? Posterior Tibial (Ankle) Artery ??123 ? [...] unspecified documented in this encounter Care Teams Etched Circuit Processor Relationship Specialty Start Date End Date Veronica Meek DO [address] [place] [address] PCP - General Family Medicine 07/24/22 documented as of this encounter
--- OUTSIDE RECORDS SUMMARY | 2024-07-13 18:54 | XMS_ITS | Encounter Summary ---
Author Organization [facility] [place] [address] Care Team Providers Care Lawn Technician Name Role Phone Veronica Meek DO Primary Care Provider +1- [phone] Encounter Details Date Type Department Care Team [...] 10:40 AM EDT Office Visit Dermatology at [facility] [address] [place] [address] Emmanuelle Yeboah MD [facility] [address] [place] [address] documented as of this encounter Visit Diagnoses Not on filedocumented in this encounter Care Teams Lawn Technician Relationship Specialty Start Date End Date Veronica Meek DO [address] [facility] [place] [address] PCP - General Family Medicine 07/24/22 documented as of this encounter
--- OUTSIDE RECORDS SUMMARY | 2024-07-13 18:54 | XMS_ITS | Encounter Summary ---
Author Organization [facility] Address [address] [place] [address] Care Team Providers Care Cowlman Name Role Phone Unavailable Primary Care Provider Unavailabl e Encounter Details Date Type Department Care Team (Late st Contact Info) Description 10/13/2002 Results Only [facility] conversion [address] [place] [address] Russell Lozano MD [address] [place] [address] Social History Tobacco Use Types Packs/Day Years [...] ? KERI BROUSSARD ? Accession #: ? [id number] ? : ? 1950 (Age: 52) ??F [...] these findings represent active Crohn's disease. ??(Dr. Bourgeois)/[facility] Document reviewed and electronically signed [...] Lozano MD PATHOLOGY ORDERABLES Performing Organization Address City/State/[facility] Co de Phone Number [facility] [address] [place] [address] documented in this encounter Visit Diagnoses Not on filedocumented in this encounter
--- OUTSIDE RECORDS SUMMARY | 2024-07-13 18:54 | XMS_ITS | Encounter Summary ---
Author Organization [facility] Address [address] [place] [address] Care Team Providers Care Furniture Sander Name Role Phone Davonte Dickson MD Primary Care Provider U bettyernie Encounter Details Date Type Department Care Team (Late st Contact Info) Description 06/10/2023 Lab [facility] - [facility] [address] [place] [address] Yury Kendrick MD [address] [place] [address] Abdominal distension (gaseous); Epigastric pain; [...] management options, if applicable. 06/12/2023 11:26 EDT [facility] Final Diagnosis A. DUODENUM, BIOPSY: - Duodenal mucosa with no significant diagnostic abnormalities. B. STOMACH, ANTRUM, BIOPSY: - Gastric fundic mucosa with no significant diagnostic abnormalities. - Negative for Helicobacter pylori on H&E stained sections. C. GASTROESOPHAGEAL JUNCTION, BIOPSY: - Squamocolumnar mucosa with mild reactive changes. - Negative for intestinal metaplasia and dysplasia. 06/12/2023 11:26 [facility] Attestation By the signature below, the attending physician certifies that they have 1) personally conducted a gross and/or microscopic examination of the described specimen(s), and/or personally interpreted the results of laboratory testing of the described specimen(s), and 2) personally rendered or confirmed the above diagnosis. 06/12/2023 11:26 [facility] at [address] Clinical History Epigastric pain, GERD, bloating, gastritis, duodenitis 06/12/2023 11:26 [facility] Gross Description [...] C1. Laura Lea 06/11/2023 9:27 06/12/2023 11:26 [facility] Performing Lab [facility] 11:26 [facility] Scanned Images 06/12/2023 11:26 [facility] Tissue ENTIRE ESOPHAGUS / Unknown 06/10/2023 9:48 EDT 06/10/2023 19:02 EDT Tissue specimen (specimen) STOMACH STRUCTURE / Unknown 06/10/2023 9:48 EDT 06/10/2023 19:02 EDT Tissue specimen (specimen) ESOPHAGEAL STRUCTURE / Unknown 06/10/2023 9:48 EDT 06/10/2023 19:02 EDT Yury Kendrick MD PATHOLOGY ORDERA MICHAEL [facility] Organization Address City/State/ZIP Co de Phone Number [facility] [address] [place] [address] documented in this encounter Visit Diagnoses Diagnosis Abdominal distension (gaseous) Flatulence, eructation, and gas pain Epigastric pain Abdominal pain, epigastric Gastro-esophageal reflux disease without esophagitis Esophageal reflux documented in this encounter Care Teams Furniture Sander Relationship Specialty Start Date End Date Davonte Dickson MD PCP - General 07/13/14 documented as of this encounter
--- OUTSIDE RECORDS SUMMARY | 2024-07-13 18:54 | XMS_ITS | Encounter Summary ---
Author Organization [facility] [place] [address] Care Team Providers Care Swine Genetics Researcher Name Role Phone Veronica Meek DO Primary Care Provider +1- [phone] Encounter Details Date Type Department Care Team [...] 10:40 AM EDT Office Visit Dermatology at [facility] [address] [place] [address] Emmanuelle Yeboah MD [facility] [address] [place] [place] [address] documented as of this encounter Visit Diagnoses Not on filedocumented in this encounter Care Teams Swine Genetics Researcher Relationship Specialty Start Date End Date Veronica Meek DO [address] [place] [address] PCP - General Family Medicine 07/24/22 documented as of this encounter
--- OUTSIDE RECORDS SUMMARY | 2024-07-13 18:54 | XMS_ITS | Encounter Summary ---
Author Organization [facility] [place] [address] Care Team Providers Care Medical Record Specialist Name Role Phone Veronica Meek DO Primary Care Provider +1- [phone] Encounter Details Date Type Department Care Team [...] 10:40 AM EDT Office Visit Dermatology at [facility] [address] [place] [address] Emmanuelle Yeboah MD [facility] [address] [place] [address] documented as of this encounter Visit Diagnoses Not on filedocumented in this encounter Care Teams Medical Record Specialist Relationship Specialty Start Date End Date Veronica Meek DO [address] [employer] [facility] [employer] [facility] [place] [place] [address] PCP - General Family Medicine 07/24/22 documented as of this encounter
--- OUTSIDE RECORDS SUMMARY | 2024-07-13 18:54 | XMS_ITS | Encounter Summary ---
[place] [address] Care Team Providers Care Meat Lugger Name Role Phone OscarVeronica ventura Primary Care Provider +1- [phone] Encounter Details Date Type Department Care Team (Late st Contact Info) Description 08/18/2023 Telephone [place] [address] Dustin Walter RN Social History Tobacco Use [...] 10:40 AM EDT Office Visit Dermatology at [facility] [address] [place] [address] Emmanuelle Yeboah MD [facility] [place] [address] documented as of this encounter Visit Diagnoses Not on filedocumented in this encounter Care Teams Meat Lugger Relationship Specialty Start Date End Date Veronica Meek DO [address] [place] [address] PCP - General Family Medicine 07/24/22 documented as of this encounter
--- OUTSIDE RECORDS SUMMARY | 2024-07-13 18:54 | XMS_ITS | Encounter Summary ---
Author Organization [facility] [place] [address] Care Team Providers Care Laborer Pullet Farm Name Role Phone Veronica Meek DO Primary Care Provider +1- [phone] Encounter Details Date Type Department Care Team [...] 10:40 AM EDT Office Visit Dermatology at [facility] [address] [place] [address] Emmanuelle Yeboah MD [facility] [address] [place] [address] documented as of this encounter Visit Diagnoses Not on filedocumented in this encounter Care Teams Laborer Pullet Farm Relationship Specialty Start Date End Date Veronica Meek DO [address] [facility] [place] [address] PCP - General Family Medicine 07/24/22 documented as of this encounter
--- OUTSIDE RECORDS SUMMARY | 2024-07-13 18:54 | XMS_ITS | Encounter Summary ---
[place] [address] Care Team Providers Care Provider Engagement Executive Name Role Phone Raphael Albrecht MD Primary Care Provider [phone] Encounter Details Date Type Department Care Team (Latest Contact Info) Description 08/31/2014 10:00 AM EDT Procedure [place] [address] CLINIC, Veronica Valencia, RN Chest pain (Primary [...] Female, 64 yrs, 1950 PCP: RAPHAEL ALBRECHT FOREST FIRE WARDEN: NONE STUDY DATE: 08/31/14 INDICATION Chest pain. METHODS Stationary esophageal manometry was performed with the PolarLake esophageal motility system utilizing the AgentPair software with a 4-channel solid-state motility probe. [...] of the esophagus. Rigoberto Ferguson, PhD, MD manager business, [facility] [employer] Section of Gastroenterology and Hepatology [facility] [place] [address] V: [phone] F: [phone] [facility]/danial CC/EC: PCP - fax copy 09/06/14 Enclosure: Tracing Anish Meraz DO - fax copy 09/06/14 Enclosure: Tracing * Veronica Bryan RN - 08/31/2014 10:22 AM EDT Esophageal manometry performed without difficulty and Was well tolerated. documented in this encounter Plan of Treatment Upcoming Encounters Date Type Department Care Team (Late st Contact Info) Description 08/16/2024 10:40 AM EDT Office Visit Dermatology at [facility] [address] [place] [address] Emmanuelle Yeboah MD [facility] [address] [place] [address] documented as of this encounter Visit Diagnoses Diagnosis Chest pain- Primary Chest pain, unspecified documented in this encounter Care Teams Provider Engagement Executive Relationship Specialty Start Date End Date Raphael Albrecht MD [address] [facility] [place] [address] PCP - General 05/04/14 07/23/22 documented as of this encounter
--- OUTSIDE RECORDS SUMMARY | 2024-07-13 18:54 | XMS_ITS | Encounter Summary ---
[place] [address] Care Team Providers Care Cook Mayonnaise Name Role Phone Ayah Albrecht MD Primary Care Provider [phone] Encounter Details Date Type Department Care Team (Late st Contact Info) Description 06/25/2021 Orders [place] [address] Shireen Fulton PA [facility] [place] [address] Social History Tobacco Use Types Packs/Day Years [...] 10:40 AM EDT Office Visit Dermatology at [facility] [address] [place] [address] Emmanuelle Yeboah MD [facility] [place] [address] documented as of this encounter Visit Diagnoses Not on filedocumented in this encounter Care Teams Cook Mayonnaise Relationship Specialty Start Date End Date Ayah Albrecht MD [address] [place] [address] PCP - General 05/04/14 07/23/22 documented as of this encounter
--- OUTSIDE RECORDS SUMMARY | 2024-07-13 18:54 | XMS_ITS | Encounter Summary ---
Author Organization [facility] Address [address] [place] [address] Care Team Providers Care Biomedical Electronics Technician Name Role Phone Unavailable Primary Care Provider Unavailabl e Encounter Details Date Type Department Care Team (Latest Contact Info) Description 07/07/2014 15:12 EDT - 07/07/2014 23:59 EDT Hospital Encounter [address] [address] Unknown, Provider, Discharge Disposition: Home or Self Care Social History Tobacco Use Types Packs/Day Years Used Date Smoking Tobacco: Never Assessed Sex and Gender Information Value Date Recorded Sex Assigned at Not on file Gender Identity Not on file Sexual Orientation Not on file documented as of this encounter Discharge Disposition Disposition Code Departure Means Destination Home or Self [facility] documented in this encounter Plan of Treatment Not on file documented as of this encounter Visit Diagnoses Not on filedocumented in this encounter
--- OUTSIDE RECORDS SUMMARY | 2024-07-13 18:54 | XMS_ITS | Encounter Summary ---
[place] [address] Care Team Providers Care Partridge Farmer Name Role Phone MarybethVeronica anand Myles CHRISTIANSEN Primary Care Provider +1- [phone] Encounter Details Date Type Department Care Team (Late st Contact Info) Description 08/14/2023 Telephone [place] [address] Dustin Walter RN Social History Tobacco Use [...] cessation was discussed. Shared with patient this grant writer will get a message to Dr. Bates for her to weigh in on whetherher willingness to quit smoking impacts the decision of whether she is a good candidate to have a stent placed. documented in this encounter Plan of Treatment Upcoming Encounters Date Type Department Care Team (Late st Contact Info) Description 08/16/2024 10:40 AM EDT Office Visit Dermatology at [facility] [address] [place] [address] Emmanuelle Yeboah MD [facility] [place] [address] documented as of this encounter Visit Diagnoses Not on filedocumented in this encounter Care Teams Partridge Farmer Relationship Specialty Start Date End Date Veronica Meek DO [address] [place] [address] PCP - General Family Medicine 07/24/22 documented as of this encounter
--- OUTSIDE RECORDS SUMMARY | 2024-07-13 18:54 | XMS_ITS | Encounter Summary ---
[place] [address] Care Team Providers Care Balancing Machine Operator Name Role Phone Veronica Meek DO Primary Care Provider [phone]- [phone] Reason for Visit * Diagnostic Test (Routine) - Closed Specialty Diagnoses / Procedures Referred By Roxanneac t Referred To Contact Diagnoses Renal artery stenosis Procedures Duplex Study Renal Arteries, Jasmyne Lopez APRN [facility] [place] [address] [facility] [address] [address] Referral ID Status Reason Start Date Expiration Date V isits Requested Visits Authorized [id number] Closed Specialty Service Requested 07/16/2023 07/15/2024 1 1 Encounter Details Date Type Department Care Team (Late st Contact Info) Description 08/13/2023 8:30 AM EDT Tech [place] [address] Thompson Rodriguez, RVT Renal artery [...] 10:40 AM EDT Office Visit Dermatology at [facility] [address] [place] [address] Emmanuelle Yeboah MD [facility] [address] [place] [address] documented as of this encounter Procedures Procedure Name Priority Date/Time Associated Diagnosis Comments RENAL DUPLEX COMPLETE Routine 08/13/2023 8:23 AM EDT Renal artery stenosis documented in this encounter Results * Duplex Study Renal Arteries, Bilat (08/13/2023 8:23 AM EDT) VB Text Report Department: Vascular Surgery Lab Patient: [id number] (KERI BROUSSARD) CPT: 24338 Referring Physician: JASMYNE THOMPSON ?? Phone: Indications: [...] artery documented in this encounter Care Teams Balancing Machine Operator Relationship Specialty Start Date End Date Veronica Meek DO [address] [place] [address] PCP - General Family Medicine 07/24/22 documented as of this encounter
--- OUTSIDE RECORDS SUMMARY | 2024-07-13 18:54 | XMS_ITS | Encounter Summary ---
[place] [address] Care Team Providers Care Java Security Architect Name Role Phone OscarVeronica ventura Myles CHRISTIANSEN Primary Care Provider [phone]- [phone] Encounter Details Date Type Department Care Team (Late st Contact Info) Description 02/06/2023 1:40 PM EDT Office Visit Dermatology at [facility] [address] [place] [address] Marian Calhoun MD [facility] [place] [address] Actinic keratoses; Seborrheic keratoses; Multiple nevi; Lentigines; [...] a full skin exam. []Note routed to elementary secretary [x]Recall placed in scheduling system []Appointment scheduled at checkout Scribe attestation: SAMMY Santa has performed the documentation for this encounter in the presence of and acting as a scribe for Marian Calhoun MD. I performed the above scribed service and agree with the accuracy of the documentation in this encounter. Reviewed and signed by: Marian Calhoun MD Dermatology [facility] Patient seen and evaluated with staff second shift supervisor: Heidi Grace MD Dermatology [facility] * Davon Grace MD - 02/06/2023 1:40 [...] 10:40 AM EDT Office Visit Dermatology at [address] [place] [address] Emmanuelle Yeboah MD [facility] [place] [address] documented as of this encounter Visit Diagnoses Diagnosis Actinic keratoses Actinic keratosis Seborrheic keratoses Multiple nevi Benign neoplasm of skin, site unspecified Lentigines Other dyschromia Falcon angioma Nevus, non-neoplastic Seborrheic dermatitis Seborrheic dermatitis, unspecified Notalgia paresthetica Disturbance of skin sensation documented in this encounter Care Teams Java Security Architect Relationship Specialty Start Date End Date Veronica Meek DO [address] [place] [address] PCP - General Family Medicine 07/24/22 documented as of this encounter
--- OUTSIDE RECORDS SUMMARY | 2024-07-13 18:54 | XMS_ITS | Encounter Summary ---
Author Organization [facility] Address [address] [place] [address] Care Team Providers Care Driller Portable Name Role Phone Unavailable Primary Care Provider Unavailabl e Encounter Details Date Type Department Care Team (Late st Contact Info) Description 07/07/2014 Results Only [facility] Laboratory Services - [facility] [place] [address] [place], [place] [address] Anish Culver, DO [address] [place] [address] Social History Tobacco Use Types Packs/Day Years [...] ? KERI BROUSSARD ? Accession #: ? [id number] ? : ? 1950 (Age: 63) ??F [...] DO PATHOLOGY ORDERABLES [facility] [address] [place] [address] documented in this encounter Visit Diagnoses Not on filedocumented in this encounter
--- OUTSIDE RECORDS SUMMARY | 2024-07-13 18:54 | XMS_ITS | Encounter Summary ---
Author Organization [facility] Address [address] [place] [address] Care Team Providers Care Hide Measuring Machine Operator Name Role Phone Davonte Dickson MD Primary Care Provider U carolina Encounter Details Date Type Department Care Team (Late st Contact Info) Description 12/24/2021 Lab Requisition [facility] Pathology & Laboratory Medicine - [facility] [address] [place], [place] [address] Outr Resulting Lab, Provider Social History Tobacco [...] 10 - 291 ng/mL 12/25/2021 9:48 EST [facility] Blood VENOUS BLOOD / Unknown 12/24/2021 10:43 EST 12/24/2021 21:35 EST Provider Outr Resulting Lab CHEMISTRY & BLOOD GAS ORDERABLES [facility] [address] [place] [address] documented in this encounter Visit Diagnoses Not on filedocumented in this encounter Care Teams Hide Measuring Machine Operator Relationship Specialty Start Date End Date Davonte Dickson MD PCP - General 07/13/14 documented as of this encounter
--- OUTSIDE RECORDS SUMMARY | 2024-07-13 18:54 | XMS_ITS | Encounter Summary ---
Author Organization [facility] Address [facility] [place] [address] Care Team Providers Care Invoice Machine Operator Name Role Phone Ayah Albrecht MD Primary Care Provider [phone] Reason for Visit * Reason Comments Skin Cancer Examination * Consultation (Routine) - Closed Specialty Diagnoses / Procedures Referred By Contjose francisco t Referred To Contact Dermatology Diagnoses Encounter for screening for malignant neoplasm of skin Ayah Albrecht MD [address] [place] [address] [facility] Dermatology [address] [place] [address] Referral ID Status Reason Start Date Expiration Date V isits Requested Visits Authorized [id number] Closed Consult, Test & Treat Connection [facility] PCP Updated and/or Approved 09/25/2020 09/25/2021 6 6 Encounter Details Date Type Department Care Team (Late st Contact Info) Description 10/11/2020 10:15 AM EST Office Visit Dermatology at [facility] [address] [place] [address] Sharri Mata MD [facility] [address] [place] [place] [address] SK (seborrheic keratosis); Benign nevus of skin; [...] to 5pm), please call the clinic at [phone]. After 5pm, and on weekends and holidays, please call the hospital at [phone] and ask for the Attendant Coin Operated Laundry Vertical Roll Operator. documented in this encounter Progress Notes * [...] discuss details of diagnosis and treatment with: umxfili70/3/2020 Chief Complaint Patient presents with ??? Skin [...] skin examination. Patient also advised that nail ukrainian, makeup and jewelry/watches all interfere with a [...] shave removal, snip removal, watchful waiting - [place] decision to proceed with skin shave removal [...] encounter. Sharri Mata MD Section of Dermatology [facility] [place] 10/11/2020 [id number] documented in this encounter Plan of Treatment Upcoming Encounters Date Type Department Care Team (Late st Contact Info) Description 08/16/2024 10:40 AM EDT Office Visit Dermatology at [facility] [address] [place] [address] Emmanuelle Yeboah MD [facility] [place] [address] documented as of this encounter Procedures Procedure Name Priority Date/Time Associated Diagnosis Comments SPECIMEN TO PATHOLOGY Routine 10/11/2020 10:56 AM EST Neoplasm of uncertain behavior of skin SURGICAL PATHOLOGY REPORT Routine 10/11/2020 10:55 AM EST documented in this encounter Results * Specimen to Pathology (10/11/2020 10:56 AM EST) AP Specimen 10/11/2020 10:5 6 AM EST 10/11/2020 1:35 PM EST Narrative [facility] - 10/11/2020 1:35 PM EST Specimen requisition ordered. ??Separate Pathology report to follow Resulting Agency Comment Spec In Lab Sharri Mata MD PATHOLOGY/CYTOLOGY O RDERABLES [facility] [place] [address] * Surgical Pathology Report (10/11/2020 10:55 AM EST) Final Diagnosis [id number] ? Location: [facility] The signing pathologist has (i) examined the relevant preparation(s) for the specimen(s) and (ii) rendered or confirmed the diagnosis(es). . ?Surgical Pathology DIAGNOSIS Left tear trough, skin shave removal: - ??Seborrheic keratosis, pigmented Electronically signed by: ??Cora BENNETT, Digna Verified: ??10/16/2020 ?Dermatopathol ogist Performed at: ??-[facility] Dept. of Pathology, [place], [place] SPECIMEN(S) SUBMITTED A - left tear [...] labeled A1. ??gerardo 10/16/2020 10:53 AM EST [facility] SPECIMEN FROM SKIN / Unknown 10/11/2020 10:55 AM EST 10/11/2020 10:55 AM EST Sharri Mata MD PATHOLOGY/CYTOLOGY O RDERABLES [facility] [place] [address] documented in this encounter Visit Diagnoses Diagnosis SK (seborrheic keratosis) Other seborrheic keratosis Benign nevus of skin Benign neoplasm of skin, site unspecified Falcon angioma Nevus, non-neoplastic Neoplasm of uncertain behavior of skin documented in this encounter Care Teams Invoice Machine Operator Relationship Specialty Start Date End Date Ayah Albrecht MD [address] [place] [address] PCP - General 05/04/14 07/23/22 documented as of this encounter
--- OUTSIDE RECORDS SUMMARY | 2024-07-13 18:54 | XMS_ITS | Encounter Summary ---
Author Organization [place] [id number] Care Team Providers Care Line Lead Name Role Phone Veronica Meek DO Primary Care Provider [phone] Reason for Referral * Diagnostic Test (Routine) - Authorized Specialty Diagnoses / Procedures Referred By Contac t Referred To Contact Diagnoses Renal artery stenosis Procedures Duplex Study Renal Arteries, Bilat Jocelyn Bates MD [facility] [place] [address] [facility] [address] [place] [phone] Referral ID Status Reason Start Date Expiration Date Visits Requested Visits Authorized [id number] Authorized Specialty Service Requested 08/13/2023 08/12/2024 1 1 * Diagnostic Test (Routine) - Authorized Specialty Diagnoses / Procedures Referred By Contac t Referred To Contact Diagnoses Atherosclerosis of lower extremity with claudication Procedures BONITA, legs, multiple levels Jocelyn Bates MD [facility] [place] [address] [facility] [address] [place] [id number] Referral ID Status Reason Start Date Expiration Date Visits Requested Visits Authorized [id number] Authorized Specialty Service Requested 08/13/2023 08/12/2024 1 1 Encounter Details Date Type Department Care Team (Late st Contact Info) Description 08/13/2023 9:30 AM EDT Office [place] [address] Jocelyn Bates MD [facility] [place] [address] Atherosclerosis of lower extremity with claudication; Renal [...] Text Report Department: Vascular Surgery Lab Patient: [id number] (KERI BROUSASRD) CPT: 08041 Referring Physician: BORIS THOMPSON Phone: Indications: renal [...] 189 Dorsalis Pedis (Ankle) Artery 122 0.65 [place]-Biphasic Posterior Tibial (Ankle) Artery 123 0.65 Biphasic [...] artery. Stenosis of the L RUPAL. Bilateral STRUCTURAL MANAGER stenoses. R SFA occluded at the origin. [...] 10:40 AM EDT Office Visit Dermatology at [facility] [address] [place] [address] Emmanuelle Yeboah MD [facility] [place] [address] documented as of this encounter Visit Diagnoses Diagnosis Atherosclerosis of lower extremity with claudication Renal artery stenosis Atherosclerosis of renal artery documented in this encounter Care Teams Line Lead Relationship Specialty Start Date End Date Veronica Meek DO [address] [place] [address] PCP - General Family Medicine 07/24/22 documented as of this encounter
--- OUTSIDE RECORDS SUMMARY | 2024-07-13 18:54 | XMS_ITS | Encounter Summary ---
[place] [address] Care Team Providers Care Sales Team Member Name Role Phone Ayah Albrecht MD Primary Care Provider [phone] Encounter Details Date Type Department Care Team (Late st Contact Info) Description 05/14/2021 Telephone [place] [address] Shireen Fulton PA [facility] [place] [address] Social History Tobacco Use Types Packs/Day Years [...] 10:40 AM EDT Office Visit Dermatology at [facility] [address] [place] [address] Emmanuelle Yeboah MD [facility] [address] [place] [place] [address] documented as of this encounter Visit Diagnoses Not on filedocumented in this encounter Care Teams Sales Team Member Relationship Specialty Start Date End Date Ayah Albrecht MD [address] [facility] [place] [address] PCP - General 05/04/14 07/23/22 documented as of this encounter
--- OUTSIDE RECORDS SUMMARY | 2024-07-13 18:54 | XMS_ITS | Encounter Summary ---
Author Organization [facility] [place] [address] Care Team Providers Care Director Of Partner Marketing Name Role Phone Ayah Albrecht MD Primary Care Provider [phone] Reason for Referral * Diagnostic Test (Routine) - Closed Specialty Diagnoses / Procedures Referred By Contac t Referred To Contact Diagnoses Pain of lower extremity, unspecified laterality Procedures BONITA, legs, multiple levels Jesus Kam APRN [facility] [place] [address] [facility] Vascular Lab [address] [address] Referral ID Status Reason Start Date Expiration Date V isits Requested Visits Authorized [id number] Closed Specialty Service Requested 04/23/2021 04/23/2022 1 1 Encounter Details Date Type Department Care Team (Late st Contact Info) Description 04/23/2021 Orders Only [place] [address] Jesus Kam APRN [facility] [place] [address] Pain of lower extremity, unspecified [...] 10:40 AM EDT Office Visit Dermatology at [facility] [address] [place] [address] Emmanuelle Yeboah MD [facility] [address] [place] [address] documented as of this encounter Results * BONITA, legs, multiple levels (04/24/2021 10:50 AM EDT) VB Text Report Department: Vascular Surgery Lab Patient: [id number] (KERI BROUSSARD) CPT: 78748 ICD10: M79.606;I77.1;I7 0.213 Referring Physician: JESUS KAM, [...] 04/24/2021 10:5 0 AM EDT Jesus Kam TRANSIT PROOF MACHINE OPERATOR VASCULAR ORDERABLE S VASCUBASE documented in this encounter Visit Diagnoses Diagnosis Pain of lower extremity, unspecified laterality documented in this encounter Care Teams Director Of Partner Marketing Relationship Specialty Start Date End Date Ayah Albrecht MD [address] [place] [address] PCP - General 05/04/14 07/23/22 documented as of this encounter
--- OUTSIDE RECORDS SUMMARY | 2024-07-13 18:54 | XMS_ITS | Encounter Summary ---
[place] [address] Care Team Providers Care Utility Worker Production Name Role Phone AuraVeronica sánchez Myles CHRISTIANSEN Primary Care Provider [phone] Encounter Details Date Type Department Care Team (Late st Contact Info) Description 03/23/2024 10:20 AM EDT Office Visit Dermatology at [facility] [address] [place] [address] Emmanuelle Yeboah MD [facility] [place] [address] Lichen sclerosus; Vulvar atrophy; Seborrheic dermatitis; Multiple [...] The amount needed may be what onecan brain picker with a toothpick. At the start [...] or rubbing) and put plain white petrolatum HALFWAY (Vaseline) and/or the prescribed ointment on the [...] Labia Chronicles: [email or web address] Makenna Contreras MD on [email or web address] How To - Topical Corticosteroids: Some common [...] changes, irritants, or certain skin conditions. Painful [place]: If you are experiencing pain or discomfort [...] provider before starting any new medication. Using [employer] to Access Affordable Topical Estrogen [employer] is a valuable resource that can help you obtain your prescribed topical estrogen at a more affordable perry. [employer] provides discounts and coupons for a wide range of medications, making them accessible to individuals without insurance coverage or with high copayments. Here's how to use [employer]: Visit the Website or Mc: Go to www.Podcast Ready or download the [employer] mc on your smartphone or tablet. Search for Your Medication: Enter the name of the topical estrogen prescribed by your healthcare provider in the search bar. Compare Prices: [employer] will display a list of pharmacies in your area along with the discounted prices available. Compare the prices to find the most affordable option. Get a Coupon: Select the desired pharmacy and dosage, then click on Get Free Coupon. You can either print the coupon or save it on your smartphone. Present the Coupon: Show the coupon to the pharmacist when you brain picker your prescription. They willapply the discount to ensure you receive the reduced perry. Remember, prices may vary between pharmacies, so it's beneficial to compare different options available through [employer] to find the best perry for your [...] 1 year for FSE [x]Note routed to field secretary [x]Recall placed in scheduling system []Appointment [...] Health Patient seen and evaluated with staff combat systems engineer: Tashi Shankar MD Dermatology [facility] [...] them as documented. TASHI SHANKAR MD Staff Production Control Scheduler Department of Dermatology [facility] documented in this encounter Plan of Treatment Upcoming Encounters Date Type Department Care Team (Late st Contact Info) Description 08/16/2024 10:40 AM EDT Office Visit Dermatology at [facility] [address] [place] [address] Emmanuelle Yeboah MD [facility] [place] [address] documented as of this encounter Visit Diagnoses Diagnosis Lichen sclerosus Circumscribed scleroderma Vulvar atrophy Atrophy of vulva Seborrheic dermatitis Seborrheic dermatitis, unspecified Multiple melanocytic nevi Seborrheic keratoses Lentigines Other dyschromia Falcon angioma Nevus, non-neoplastic Telangiectasias Other and unspecified capillary diseases documented in this encounter Care Teams Utility Worker Production Relationship Specialty Start Date End Date Veronica Meek DO [address] [place] [address] PCP - General Family Medicine 07/24/22 documented as of this encounter
--- OUTSIDE RECORDS SUMMARY | 2024-07-13 18:54 | XMS_ITS | Encounter Summary ---
[place] [address] Care Team Providers Care Tar Man Name Role Phone Veronica Meek DO Primary Care Provider [phone] Reason for Referral * Diagnostic Test (Routine) - Closed Specialty Diagnoses / Procedures Referred By Contac t Referred To Contact Diagnoses PVD (peripheral vascular disease) with claudication Procedures BONITA, legs, multiple levels Jesus Kam APRN [facility] [place] [address] [facility] Vascular Lab [address], [place] [address] Referral ID Status Reason Start Date Expiration Date V isits Requested Visits Authorized [id number] Closed Specialty Service Requested 07/24/2022 07/24/2023 1 1 Encounter Details Date Type Department Care Team (Late st Contact Info) Description 07/24/2022 9:30 AM EDT Office [place] [address] Jesus Kam APRN [facility] [place] [address] PVD (peripheral vascular disease) with [...] this encounter Progress Notes * Jesus Kam, ASSAYER - 07/24/2022 9:30 AM EDT Vascular Follow-Up [...] Posterior Tibial (Ankle) Artery ??123 ? 0.62 ??[place]-Biphasic ? Left ? Pressure (mm Hg) ?? [...] 10:40 AM EDT Office Visit Dermatology at [facility] [address] [place] [address] Emmanuelle Yeboah MD [facility] [address] documented as of this encounter Results * BONITA, legs, multiple levels (07/10/2023 2:22 PM EDT) [facility] Text Report Department: Vascular Surgery Lab Patient: [id number] (KERI BROUSSARD) CPT: 35808 Referring Physician: JESUS KAM APRN ?? Indications: Claudication ? Perfusion Diabetes mellitus: No Findings: Right ?Pressure (mm Hg) ?? BONITA ??Waveform ? Brachial Artery ?189 ? Dorsalis Pedis (Ankle) Artery ?122 ? 0.65 ??[place]-Biphasic ?? Posterior Tibial (Ankle) Artery ??123 ? [...] VASCUBASE 07/10/2023 2:22 PM EDT Jesus Kam ASSAYER VASCULAR ORDERABLE S VASCUBASE documented in this encounter Visit Diagnoses Diagnosis PVD (peripheral vascular disease) with claudication Peripheral vascular disease, unspecified documented in this encounter Care Teams Tar Man Relationship Specialty Start Date End Date Veronica Meek DO [address] [facility] [place] [address] PCP - General Family Medicine 07/24/22 documented as of this encounter
--- OUTSIDE RECORDS SUMMARY | 2024-07-13 18:54 | XMS_ITS | Encounter Summary ---
Author Organization [facility] [place] [address] Care Team Providers Care Designated Broker Name Role Phone Veronica Meek DO Primary Care Provider [phone] Encounter Details Date Type Department Care Team [...] 10:40 AM EDT Office Visit Dermatology at [facility] [address] [place] [address] Emmanuelle Yeboah MD [facility] [place] [address] documented as of this encounter Visit Diagnoses Not on filedocumented in this encounter Care Teams Designated Broker Relationship Specialty Start Date End Date Veronica Meek DO [address] [place] [address] PCP - General Family Medicine 07/24/22 documented as of this encounter
--- OUTSIDE RECORDS SUMMARY | 2024-07-13 18:54 | XMS_ITS | Encounter Summary ---
Author Organization [facility] [address] Care Team Providers Care Intensivist Name Role Phone Veronica Meek DO Primary Care Provider [phone] Encounter Details Date Type Department Care Team (Late st Contact Info) Description 06/19/2023 Ancillary Procedure [place] [address] Veronica Meek DO [address] [place], [place] [id number] Social History Tobacco Use Types Packs/Day Years [...] 10:40 AM EDT Office Visit Dermatology at [facility] [address] [place] [address] Emmanuelle Yeboah MD [facility] [place] [address] documented as of this encounter Procedures Procedure Name Priority Date/Time Associated Diagnosis Comments FILM LIBRARY STORAGE ONLY CT ABDOMEN AND PELVIS Routine 06/19/2023 12:00 AM EDT documented in this encounter Results * Film Library- Storage Only CT Abdomen & Pelvis (06/19/2023 12:00 AM EDT) Narrative [facility] - 06/27/2023 3:52 AM EDT This exam is auto-finalizing. It's purpose is for storage only. Veronica Meek DO IMG FILM LIBRARY O RDERABLES [place], [place] documented in this encounter Visit Diagnoses Not on filedocumented in this encounter Care Teams Intensivist Relationship Specialty Start Date End Date Veronica Meek DO [address] [place] [address] PCP - General Family Medicine 07/24/22 documented as of this encounter
--- OUTSIDE RECORDS SUMMARY | 2024-07-13 18:54 | XMS_ITS | Encounter Summary ---
Author Organization [facility] Address [address] [place] [address] Care Team Providers Care Title Insurance Agent Name Role Phone Davonte Dickson MD Primary Care Provider Willie figueroa Encounter Details Date Type Department Care Team (Late st Contact Info) Description 04/12/2022 Lab Requisition [facility] Pathology & Laboratory Medicine - [facility] [address] [place], [place] [address] Outr Resulting Lab, Provider Social History Tobacco [...] Outr Resulting Lab MICROBIOLOGY - GENERAL ORDERABLES [facility] [address] [place] [address] * COVID-19 TESTING (04/12/2022 10:15 EDT) COVID-19 rt-PCR Result Negative Negative 04/14/2022 14:43 EDT [facility] Comment: This test has [...] was performed using the aaron SARS-CoV-2 assay ([employer] on the Aaron 6800 System Performing Lab Aaron 6800 [facility] Lab 04/14/2022 14:43 EDT [facility] Swab 04/12/2022 10:1 5 EDT 04/13/2022 16:48 EDT Provider Outr Resulting Lab MICROBIOLOGY - GENERAL ORDERABLES [facility] [address] [place] [address] documented in this encounter Visit Diagnoses Not on filedocumented in this encounter Care Teams Title Insurance Agent Relationship Specialty Start Date End Date Davonte Dickson MD PCP - General 07/13/14 documented as of this encounter
--- OUTSIDE RECORDS SUMMARY | 2024-07-13 18:54 | XMS_ITS | Encounter Summary ---
Author Organization [facility] Address [address] [place] [address] Care Team Providers Care Cloth Mercerizing Supervisor Name Role Phone Unavailable Primary Care Provider Unavailabl e Encounter Details Date Type Department Care Team (Late st Contact Info) Description 10/07/2001 Results Only [facility] conversion [address] [place] [address] Veronica Diaz, HELGA Social History Tobacco Use [...] ? KERI BROUSSARD ? Accession #: ? [id number] : ? 1950 (Age: 51) ??F ?Collect [...] NP PATHOLOGY ORDERABLES [facility] [address] [place] [address] documented in this encounter Visit Diagnoses Not on filedocumented in this encounter
--- OUTSIDE RECORDS SUMMARY | 2024-07-13 18:54 | XMS_ITS | Encounter Summary ---
Author Organization [facility] Address [address] [place] [address] Care Team Providers Care Ladle Liner Name Role Phone Davonte Dickson MD Primary Care Provider U carolina Encounter Details Date Type Department Care Team (Late st Contact Info) Description 04/15/2022 Lab Requisition [facility] Pathology & Laboratory Medicine - [facility] [address], [place] [address] Outr Resulting Lab, Provider Social History Tobacco [...] Lyme Ab Negative Negative 04/16/2022 9:56 EDT [facility] Blood VENOUS BLOOD / Unknown 04/15/2022 10:50 EDT 04/15/2022 21:37 EDT Provider Outr Resulting Lab IMMUNOLOGY A ND SEROLOGY ORDERABLES [facility] [address] [place] [address] documented in this encounter Visit Diagnoses Not on filedocumented in this encounter Care Teams Ladle Liner Relationship Specialty Start Date End Date Davonte Dickson MD PCP - General 07/13/14 documented as of this encounter
--- OUTSIDE RECORDS SUMMARY | 2024-07-13 18:54 | XMS_ITS | Encounter Summary ---
[place] [address] Care Team Providers Care Engraver Block Name Role Phone OscarVeronica ventura Primary Care Provider [phone]- [phone] Encounter Details Date Type Department Care Team (Late st Contact Info) Description 08/14/2023 Telephone [place] [address] Alpa Ramirez RN Social History Tobacco Use [...] 10:40 AM EDT Office Visit Dermatology at [facility] [address] [place] [address] Emmanuelle Yeboah MD [facility] DR MANISH [place] [address] documented as of this encounter Visit Diagnoses Not on filedocumented in this encounter Care Teams Engraver Block Relationship Specialty Start Date End Date Veronica Meek DO [address] [place] [address] PCP - General Family Medicine 07/24/22 documented as of this encounter
--- OUTSIDE RECORDS SUMMARY | 2024-07-13 18:54 | XMS_ITS | Encounter Summary ---
Author Organization [facility] [place] [address] Care Team Providers Care Child Care Attendant School Name Role Phone Ayah Albrecht MD Primary Care Provider [phone] Reason for Visit * Consultation (Routine) - Closed Specialty Diagnoses / Procedures Referred By Jarret t Referred To Contact Vascular Surgery Diagnoses Peripheral vascular disease, unspecified Ayah Albrecht MD [address] [place] [address] [facility] [address] [place] [address] Referral ID Status Reason Start Date Expiration Date V isits Requested Visits Authorized [id number] Closed Consult, Test & Treat Connection Center PCP Updated and/or Approved 04/15/2021 04/15/2022 6 6 Encounter Details Date Type Department Care Team (Late st Contact Info) Description 04/24/2021 11:00 AM EDT Tech [place] [address] Mary Machado Pain of lower extremity, unspecified laterality Social [...] Miscellaneous Notes * Addendum Note - Mary Machado - 04/24/2021 11:00 AM EDTAddended by: MARY MACHADO on: 04/24/2021 11:18 AM Modules accepted: Orders documented in this encounter Plan of Treatment Upcoming Encounters Date Type Department Care Team (Late st Contact Info) Description 08/16/2024 10:40 AM EDT Office Visit Dermatology at [facility] [address] [place] [address] [facility] [place] [address] documented as of this encounter Procedures Procedure Name Priority Date/Time Associated Diagnosis Comments BONITA, LEGS, MULTIPLE LEVELS Routine 04/24/2021 10:50 AM EDT Pain of lower extremity, unspecified laterality documented in this encounter Results * BONITA, legs, multiple levels (04/24/2021 10:50 AM EDT) VB Text Report Department: Vascular Surgery Lab Patient: [id number] (KERI BROUSSARD) CPT: 20976 ICD10: M79.606;I77.1;I7 0.213 Referring Physician: JESUS KAM [...] 04/24/2021 10:5 0 AM EDT Jesus Kam [employer] WELLNESS DIRECTOR VASCULAR ORDERABLE S V[facility] documented in this encounter Visit Diagnoses Diagnosis Pain of lower extremity, unspecified laterality documented in this encounter Care Teams Child Care Attendant School Relationship Specialty Start Date End Date Ayah Albrecht MD [address] [place] [address] PCP - General 05/04/14 07/23/22 documented as of this encounter
--- OUTSIDE RECORDS SUMMARY | 2024-07-13 18:54 | XMS_ITS | Encounter Summary ---
Author Organization [place] [address] Care Team Providers Care Investigative Shopper Name Role Phone Veronica Meek DO Primary Care Provider [phone] Encounter Details Date Type Department Care Team [...] 10:40 AM EDT Office Visit Dermatology at [facility] [address] [place] [address] Emmanuelle Yeboah MD [facility] [place] [address] documented as of this encounter Visit Diagnoses Not on filedocumented in this encounter Care Teams Investigative Shopper Relationship Specialty Start Date End Date Veronica Meek DO [address] [facility] [place] [address] PCP - General Family Medicine 07/24/22 documented as of this encounter
--- OUTSIDE RECORDS SUMMARY | 2024-07-13 18:54 | XMS_ITS | Encounter Summary ---
Author Organization [facility] [place] [address] Care Team Providers Care Rolling Mill Operator Name Role Phone Ayah Albrecht MD Primary Care Provider [phone] Reason for Referral * Diagnostic Test (Routine) - Closed Specialty Diagnoses / Procedures Referred By Contac t Referred To Contact Diagnoses PVD (peripheral vascular disease) with claudication Procedures BONITA, legs, multiple levels Shireen Fulton PA [facility] [place] [address] [facility] Vascular Lab [address] [address] Referral ID Status Reason Start Date Expiration Date V isits Requested Visits Authorized [id number] Closed Specialty Service Requested 07/23/2021 07/23/2022 1 1 Encounter Details Date Type Department Care Team (Late st Contact Info) Description 07/23/2021 10:30 AM EDT Office [place] [address] Shireen Fulton PA [facility] [place] [place] [address] PVD (peripheral vascular disease) with [...] ? Posterior Tibial (Ankle) Artery ??96 ?0.59 ??[place]-Biphasic ? Left ? Pressure (mm Hg) ?? [...] 10:40 AM EDT Office Visit Dermatology at [facility] [address] [address] Emmanuelle Yeboah MD [facility] [place] [address] documented as of this encounter Results * BONITA, legs, multiple levels (07/24/2022 8:58 AM EDT) VB Text Report Department: Vascular Surgery Lab Patient: [id number] (KERI BROUSSARD) CPT: [id number] Referring Physician: SHARMIN OLIVIER ?? Indications: hx of BL LE claudication, ? peripheral perfusion Diabetes mellitus: No Findings: Right ?Pressure (mm Hg) ?? BONITA ??Waveform ? Brachial Artery ?197 ? Dorsalis Pedis (Ankle) Artery ?110 ? 0.56 ??Biphasic ? Posterior Tibial (Ankle) Artery ??123 ? 0.62 ??[place]-Biphasic ?? Left ? Pressure (mm Hg) ?? [...] Olivier MD VASCULAR ORDERABLES Performing Organization Address City/State/[facility] Co de Phone Number V[facility]CU[facility] documented in this encounter Visit Diagnoses Diagnosis PVD (peripheral vascular disease) with claudication Peripheral vascular disease, unspecified documented in this encounter Care Teams Rolling Mill Operator Relationship Specialty Start Date End Date Ayah Albrecht MD [address] [facility] [place] [address] PCP - General 05/04/14 07/23/22 documented as of this encounter
--- OUTSIDE RECORDS SUMMARY | 2024-07-13 18:54 | XMS_ITS | Encounter Summary ---
Author Organization [facility] [place] [address] Care Team Providers Care Mechanical Commissioning Engineer Name Role Phone OscarVeronica ventura Myles CHRISTIANSEN Primary Care Provider [phone] Encounter Details Date Type Department Care Team (Late st Contact Info) Description 07/24/2022 9:00 AM EDT Tech [place] [address] Mg Jc PVD (peripheral vascular disease) with [...] 10:40 AM EDT Office Visit Dermatology at [facility] [address] [place] [address] Emmanuelle Yeboah MD [facility] [address] [place] [address] documented as of this encounter Procedures Procedure Name Priority Date/Time Associated Diagnosis Comments BONITA, LEGS, MULTIPLE LEVELS Routine 07/24/2022 8:58 AM EDT PVD (peripheral vascular disease) with claudication documented in this encounter Results * BONITA, legs, multiple levels (07/24/2022 8:58 AM EDT) VB Text Report Department: Vascular Surgery Lab Patient: [id number] (KERI BROUSSARD) CPT: [id number] Referring Physician: SHARMIN TREJO ?? Indications: hx of BL LE claudication, ? peripheral perfusion Diabetes mellitus: No Findings: Right ?Pressure (mm Hg) ?? BONITA ??Waveform ? Brachial Artery ?197 ? Dorsalis Pedis (Ankle) Artery ?110 ? 0.56 ??Biphasic ? Posterior Tibial (Ankle) Artery ??123 ? 0.62 ??[place]-Biphasic ?? Left ? Pressure (mm Hg) ?? [...] Trejo MD VASCULAR ORDERABLES Performing Organization Address City/State/[facility] Co de Phone Number VASCUBASE documented in this encounter Visit Diagnoses Diagnosis PVD (peripheral vascular disease) with claudication Peripheral vascular disease, unspecified documented in this encounter Care Teams Mechanical Commissioning Engineer Relationship Specialty Start Date End Date Veronica Meek DO [address] [place] [address] PCP - General Family Medicine 07/24/22 documented as of this encounter
--- OUTSIDE RECORDS SUMMARY | 2024-07-13 18:54 | XMS_ITS | Encounter Summary ---
Author Organization [facility] Address [address] [place] [address] Care Team Providers Care Manager Wind Name Role Phone Davonte Dickson MD Primary Care Provider U carolina Encounter Details Date Type Department Care Team (Late st Contact Info) Description 11/22/2021 Lab Requisition [facility] Pathology & Laboratory Medicine - [facility] [address] [place] [address] Liz Johnson, DO [address] [address] [place] [address] Unspecified abdominal pain; Change in [...] management options, if applicable. 11/26/2021 17:43 EST [facility] Final Diagnosis A. COLON, CECUM, BIOPSY: - Lymphocytic colitis. B. COLON, 80 CM, BIOPSY: - Lymphocytic colitis. C. COLON, 60 CM, BIOPSY: - Lymphocytic colitis. D. COLON, 30 CM, BIOPSY: - Lymphocytic colitis. E. RECTUM, BIOPSY: - Lymphocytic colitis. 11/26/2021 17:43 [facility] Attestation By the signature below, the attending physician certifies that they have 1) personally conducted a gross and/or microscopic examination of the described specimen(s), and/or personally interpreted the results of laboratory testing of the described specimen(s), and 2) personally rendered or confirmed the above diagnosis. 11/26/2021 17:43 [facility] at 1743 Clinical History Screening & changes in bowel habits; Dx: I hernia 11/26/2021 17:43 [facility] Gross Description A. [...] E1. RUDDY CARD(ASCP) 11/25/2021 8:13 11/26/2021 17:43 [facility] Performing Lab [facility] 11/26/2021 17:43 [facility] Scanned Images 11/26/2021 17:43 [facility] Tissue SPECIMEN FROM [...] 15:53 EST Liz Johnson DO PATHOLOGY ORDERABLES [facility] [address] [place] [address] documented in this encounter Visit Diagnoses Diagnosis Unspecified abdominal pain Change in bowel habit documented in this encounter Care Teams Manager Wind Relationship Specialty Start Date End Date Davonte Dickson MD PCP - General 07/13/14 documented as of this encounter
--- OUTSIDE RECORDS SUMMARY | 2024-07-13 18:54 | XMS_ITS | Clinical Summary ---
Author Organization [facility] Address [address] [place] [address] Care Team Providers Care President And Cmo Name Role Phone Davonte Dickson MD Primary [...] Risk Screening 2013 COVID-19 Vaccine ( season) 2024 Care Teams President And Cmo Relationship Specialty Start Date End Date Davonte Dickson MD PCP - General 07/13/14
--- OUTSIDE RECORDS SUMMARY | 2024-07-13 18:54 | XMS_ITS | Encounter Summary ---
Author Organization [facility] [place] [address] Care Team Providers Care Awning Assembler Name Role Phone Veronica Meek DO Primary Care Provider [phone]- [phone] Encounter Details Date Type Department Care Team [...] 10:40 AM EDT Office Visit Dermatology at [facility] [address] [place] [address] Emmanuelle Yeboah MD [facility] [place] [address] documented as of this encounter Visit Diagnoses Not on filedocumented in this encounter Care Teams Awning Assembler Relationship Specialty Start Date End Date Veronica Meek DO [address] [place] [address] PCP - General Family Medicine 07/24/22 documented as of this encounter
--- OUTSIDE RECORDS SUMMARY | 2024-07-13 18:54 | XMS_ITS | Encounter Summary ---
Author Organization [facility] Address [address] [place] [address] Care Team Providers Care Pulp Bleacher Name Role Phone Unavailable Primary Care Provider Unavailabl e Encounter Details Date Type Department Care Team (Late st Contact Info) Description 04/09/2004 Results Only [facility] conversion [address] [place] [address] Jourdan Duarte MD [address] [place] [address] Social History Tobacco Use Types Packs/Day Years [...] when reading/interpreti ng unformatted reports. Name: ? KREI BROUSSARD ? Accession #: ? [id number] ? : ? 1950 (Age: 53) ??F [...] PATHOLOGY ORDERABLE S [facility] [address] [place] [address] documented in this encounter Visit Diagnoses Not on filedocumented in this encounter
--- OUTSIDE RECORDS SUMMARY | 2024-07-13 18:54 | XMS_ITS | Encounter Summary ---
[place] [address] Care Team Providers Care Grocery Packer Name Role Phone Veronica Meek DO Primary Care Provider [phone]- [phone] Reason for Referral * Diagnostic Test (Routine) - Authorized Specialty Diagnoses / Procedures Referred By Contac t Referred To Contact Diagnoses PVD (peripheral vascular disease) with claudication Procedures BONITA, legs, multiple levels Jasmyne Thompson ACID TREATER [facility] VASCULAR [place] [address] [facility] [address] [place] [phone] Referral ID Status Reason Start Date Expiration Date Visits Requested Visits Authorized [id number] Authorized Specialty Service Requested 07/16/2023 07/15/2024 1 1 * Diagnostic Test (Routine) - Closed Specialty Diagnoses / Procedures Referred By Contac t Referred To Contact Diagnoses Renal artery stenosis Procedures Duplex Study Renal Arteries, Bilat Jasmyne Thompson ACID TREATER [facility] VASCULAR [place] [address] [facility] Lab [address] [place] [phone] Referral ID Status Reason Start Date Expiration Date V isits Requested Visits Authorized [id number] Closed Specialty Service Requested 07/16/2023 07/15/2024 1 1 Encounter Details Date Type Department Care Team (Late st Contact Info) Description 07/10/2023 3:00 PM EDT Office Visit [place] [address] Jasmyne Thompson APRN [facility] DR VASCULAR [place] [address] PVD (peripheral vascular disease) with claudication; Renal [...] findings of severe L RUPAL stenosis andB MAIL LIST LIBRARIAN stenosis. As well as heavy calcification of [...] 189 Dorsalis Pedis (Ankle) Artery 122 0.65 [place]-Biphasic Posterior Tibial (Ankle) Artery 123 0.65 Biphasic [...] 10:40 AM EDT Office Visit Dermatology at [facility] [address] [place] [address] Emmanuelle Yeboah MD [facility] DR MAN[address] FALL-[place] [address] documented as of this encounter Results * Duplex Study Renal Arteries, Bilat (08/13/2023 8:23 AM EDT) VB Text Report Department: Vascular Surgery Lab Patient: [id number] (KERI BROUSSARD) CPT: 10047 Referring Physician: JASMYNE THOMPSON ?? Phone: Indications: [...] artery documented in this encounter Care Teams Grocery Packer Relationship Specialty Start Date End Date Veronica Meek DO [address] [place] [address] PCP - General Family Medicine 07/24/22 documented as of this encounter
--- OUTSIDE RECORDS SUMMARY | 2024-07-13 18:54 | XMS_ITS | Encounter Summary ---
[place] [address] Care Team Providers Care Plastic Boat Buffer Name Role Phone Ayah Albrecht MD Primary Care Provider [phone] Reason for Referral * Diagnostic Test (Routine) - Closed Specialty Diagnoses / Procedures Referred By Contac t Referred To Contact Diagnoses PVD (peripheral vascular disease) with claudication Procedures BONITA, legs, multiple levels Shireen Fulton PA [facility] [place] [address] [facility] Vascular Lab [address] [place] [phone] Referral ID Status Reason Start Date Expiration Date V isits Requested Visits Authorized [id number] Closed Specialty Service Requested 04/24/2021 04/24/2022 1 1 Reason for Visit * Consultation (Routine) - Closed Specialty Diagnoses / Procedures Referred By Contac t Referred To Contact Vascular Surgery Diagnoses Peripheral vascular disease, unspecified Ayah Albrecht MD [address] [place] [address] [facility] Vascular Surg [address] [place] [phone] Referral ID Status Reason Start Date Expiration Date V isits Requested Visits Authorized [id number] Closed Consult, Test & Treat Connection Center PCP Updated and/or Approved 04/15/2021 04/15/2022 6 6 Encounter Details Date Type Department Care Team (Late st Contact Info) Description 04/24/2021 11:30 AM EDT Office [place] [address] Shireen Fulton PA [facility] [place] [place] [address] PVD (peripheral vascular disease) with claudication Social [...] (N) CVA ?? Cardiovascular History: (N) Previous NC (Y) Angina (N) CHF (N) Arrythmia (Y) [...] 10:40 AM EDT Office Visit Dermatology at [facility] [address] [place] [address] Emmanuelle Yeboah MD [facility] [place] [address] documented as of this encounter Results * BONITA, legs, multiple levels (07/23/2021 9:51 AM EDT) VB Text Report Department: Vascular Surgery Lab Patient: [id number] (KERI BROUSSARD) CPT: 08962 ICD10: I77.1;I73.9 Referring Physician: BOAZ BAUTISTA ?? Indications: ??Claudication, known PAD. ??? change in ABIs. Diabetes mellitus: No ICD10 Diagnosis Code: I73.9 Findings: Right ?Pressure (mm Hg) ?? BONITA ??Waveform ? Brachial Artery ?161 ? Dorsalis Pedis (Ankle) Artery ?88 ?0.54 ??Monophasic ? Posterior Tibial (Ankle) Artery ??96 ?0.59 ??[place]-Biphasic ?? Left ? Pressure (mm Hg) ?? [...] unspecified documented in this encounter Care Teams Plastic Boat Buffer Relationship Specialty Start Date End Date Ayah Albrecht MD [address] [place] [address] PCP - General 05/04/14 07/23/22 documented as of this encounter
--- OUTSIDE RECORDS SUMMARY | 2024-07-13 18:55 | XMS_ITS | Encounter Summary ---
Author Organization [facility] [place] [address] Care Team Providers Care Laborer Petroleum Refinery Name Role Phone Davonte Dickson MD Primary Care Provider + Encounter Details Date Type Department Care Team (Late st Contact Info) Description 05/03/2014 Telephone Cardiology at [address] [phone] Andry Fernandez MD [facility] [place] [address] Social History Tobacco Use Types Packs/Day Years Used Date Smoking Tobacco: Never Assessed Sex and Gender Information Value Date Recorded Sex Assigned at Not on file Gender Identity Not on file Sexual Orientation Not on file documented as of this encounter Miscellaneous Notes * Telephone Encounter - Andry Fernandez - 05/03/2014 3:32 PM EDT I spoke to Dr. Garcia in the [facility] ER about this 63 yo woman with [...] normal. Plan is to admit her to [facility] now for cycling of enzymes, heparin gtt and ASA and bring her to [facility] as soon as we have more discharges / bed availability. I also spoke with the rag cutting machine tender partner of Dr. Greenberg at [facility] to appraise him of the situation. He will call back with more information, or if there is a need to expedite the transferhere. documented in this encounter Plan of Treatment Upcoming Encounters Date Type Department Care Team (Late st Contact Info) Description 08/16/2024 10:40 AM EDT Office Visit Dermatology at [facility] [address] [place] [address] Emmanuelle Yeboah MD [facility] [address] [place] [address] documented as of this encounter Visit Diagnoses Not on filedocumented in this encounter Care Teams Laborer Petroleum Refinery Relationship Specialty Start Date End Date Davonte Dickson MD [address] [place] [address] PCP - General 10/01/10 05/03/14 documented as of this encounter
--- OUTSIDE RECORDS SUMMARY | 2024-07-13 18:55 | XMS_ITS | Encounter Summary ---
Author Organization [place] [address] Care Team Providers Care Dental Lab Technician Name Role Phone yAah Albrecht MD Primary Care Provider [phone] Encounter Details Date Type Department Care Team (Late st Contact Info) Description 05/03/2014 Orders Only Cardiology at [address] [address] Russell Whitman MD [facility] [place] [address] Social History Tobacco Use Types Packs/Day Years [...] 10:40 AM EDT Office Visit Dermatology at [facility] [address] [place] [address] Emmanuelle Yeboah MD [facility] [place] [address] documented as of this encounter Procedures Procedure [...] is a Non-reportable exam Russell Whitman MD [facility] FILM LIBRARY ORD ERABLES documented in this encounter Visit Diagnoses Not on filedocumented in this encounter Care Teams Dental Lab Technician Relationship Specialty Start Date End Date Ayah Albrecht MD [address] [facility] [place] [address] PCP - General 05/04/14 07/23/22 documented as of this encounter
--- OUTSIDE RECORDS SUMMARY | 2024-07-13 18:55 | XMS_ITS | Encounter Summary ---
[place] [address] Care Team Providers Care Historic Site Administrator Name Role Phone Raphael Dixon MD Primary Care Provider [phone] Encounter Details Date Type Department Care Team (Late st Contact Info) Description 05/04/2014 2:00 PM EDT - 05/04/2014 3:00 PM EDT [place] [address] Erik Cho MD [facility] [place] [address] CARDIAC CATHETERIZATION Social History Tobacco Use Types [...] pm if you have questions please call [phone] Greenberg will see you on 06/08/14 at 12 noon if you have questions please call [phone] Home oxygen therapy: N/A Arrangements for VNA/home [...] Reason for Nutrition Intervention: Consult Diet Order: [facility] Appetite: Good Food allergies: NKFA Chewing/Swallowing difficulty: [...] and where to pick them up in [facility], Patient alerted to driving restriction for [...] Progress Note Patient Name: Floridalma Ibarra Service: PROTEIN SCIENTIST / PA Responsible Attending: Dino Heller MD [...] y.o. female admitted in transfer from [facility] with 18 months of [...] Patient admits to depressed mood Has tried debt and budget counselor and antidepression meds in past without improvement Recommend follow up with PCP Suggested patient seek counselor that she can relate to 6. Nicotine dependence - Recommend patient continue to work on smoking cessation Suggest PFT's as outpatient Aliyah Beverly, FELICITY 05/05/2014 Attending Extrusion Machine Operator Addendum: Floridalma Ibarra is a 63 y.o. [...] inthe meantime. Dino Heller M.D., F.A.C.C. Staff Extrusion Machine Operator pager [phone] * Timmy Ly MD - 05/04/2014 4:19 PM EDT STAFF ADDENDUM: I have reviewed the available records, interviewed and examined the patient. I have discussed the patient's medical history, differential diagnosis, and plan of therapy with Aliyah Beverly and have reviewed their note dated 05/04/2014 and I agree with their note and plan of therapy. Interval History: 63yo woman transferred from [facility] for cardiac cath. She [...] scar of ?etiology Plan: followup with Dr Greenebrg Lab Comments: Multiple labs assessed. Problems Reviewed: Plan: * Marian El RN - 05/04/2014 12:05 PM EDT Marian El RN,CRC, [facility] Pager [phone] Office of Care Management (OCM) / Clinical Broadcast Operations Director (CRC)/ Initial Assessment Discussed patient with Provider [...] None. Home Health Agency: None. Other: None. JUNIOR ORACLE DBA REFERRAL: No needs identified at this time. PRIMARY CARE PHYSICIAN: RAPHAEL DIXON MD [address] [facility] [id number] POTENTIAL DISCHARGE NEEDS: None identified at this [...] Interval History: 63yo woman transferred from [facility] for cardiac cath. She [...] with no known CAD transferred from [facility] with chest pressure. The [...] relief from ntg. She presented to [facility]. At [facility] her labs Cr 1.1, Mg 1.6 K 3.7, trop 0.02 x3, h/h 13.6/39.6, PLT 182, PT/INR 9.7/1.0, EKG nonspecific qrs widening with possible anteroseptal NJ. She was loaded with plavix 300 mg and asa 324 mg. At [facility] her VS 36.5-65-16 95/40 95% ra. Diagnostics: There is notation regarding an MPI with fixed anterior defect earlier this month however I do not have access to this test/imaging. CXR hyperinflated lungs otherwise no evidence of acute intrapulmonary process. She was started on heparin gtt and ntg gtt and transferred to [facility] for further management/work up. She is a [...] two sisters with CAD. On arrival to [facility] she is painfree on ntg gtt 20 [...] 05/06/2014 9:45 AM EDTAssociated Order(s): SCAN DOC: TRANSPORTATION ECONOMICS TEACHER * Provider, Scanning - 05/04/2014 3:39 PM EDTAssociated Order(s): CARDIAC CATHETERIZATION documented in this encounter Miscellaneous Notes * Miscellaneous - Provider, Scanning - 05/06/2014 9:45 AM EDT * Discharge Summary - Timmy Ly MD - 05/05/2014 11:10 AM EDT Discharge Summary Patient Name: Floridalma Ibarra Patient Age: 63 y.o. Language: American Race: White Ethnicity: Not nor Admit date: 05/04/2014 Discharge date and time: 05/05/2014 Attending Physician: Dino Heller MD Discharge Physician: Dino Heller MD Follow-up Recommendations for Providers: 1. Schedule EGD 2. Recommend area debt and budget counselor for depression 3. Schedule PFT's 4. Cardiology to follow up with ziopatch results and determine future anticoagulation needs 5. Assess toleration/effect of new protonix and asa therapy Inpatient Provider Contact Information: Aliyah Popepkins, LICENSED WEIGHER [phone] Discharge Diagnoses (Hospital Problems) and Secondary Diagnoses [...] with no known CAD transferred from [facility] with chest pressure. The [...] relief from ntg. She presented to [facility]. At [facility] her labs Cr 1.1, Mg 1.6 K 3.7, trop 0.02 x3, h/h 13.6/39.6, PLT 182, PT/INR 9.7/1.0, EKG nonspecific qrs widening with possible anteroseptal NJ. She was loaded with plavix 300 mg and asa 324 mg. At [facility] her VS 36.5-65-16 95/40 95% ra. Diagnostics: There is notation regarding an MPI with fixed anterior defect earlier this month however I do not have access to this test/imaging at the time of admission. CXR hyperinflated lungs otherwise no evidence of acute intrapulmonary process. She was started on heparin gtt and ntg gtt and transferred to [facility] for further management/work up. She is a [...] weight/etoh and smoking habits. She has tried debt and budget counselor and antidepression meds in past without improvement. Recommend follow up with PCP and suggest patient seek counselor that she can relate to as she mentioned this is why she stopped debt and budget counselor in the past. Nicotine dependence - [...] pm if you have questions please call [phone] Greenberg will see you on 06/08/14 at 12 noon if you have questions please call [phone] Home oxygen therapy: N/A Arrangements for VNA/home care: none Future Appointments and Orders Future Appointments: Provider: Department: Dept Phone: Center: 05/05/2014 12:30 PM Event Monitor [facility] [phone] None Future Orders Please Complete By Celia BLEDSOE [[email or web address] Custom] 05/05/14 05/05/15 Process Instructions: Scheduling Instructions: Comments: Questions: Responses: Does the patient have a pacemaker? If yes provide HI/LO settings: Which location will this be performed? [facility] Should this service/procedure be billed to the research sponsor? The [employer] has limited insurance coverage and patients are being billed in full. Conventional heart monitors should be ordered while payer appeals are completed. Has possible out of pocket expense been discussed with the patient? Yes Discharge References/Attachments None STAFF ADDENDUM: 63yo woman transferred from [facility] for cardiac cath. She [...] [facility] [address] [place] [address] Emmanuelle Yeboah MD [facility] [place] [address] Scheduled Orders Name Type Priority Associated Diagnoses Orde r Schedule EKG 12 Lead ECG Routine Chest pain One Time for 1 Occurrences starting 05/04/2014 until 05/04/2014 EKG 12 Lead ECG Routine LBBB (left bundle branch block) One Time for 1 Occurrences starting 05/04/2014 until 05/04/2014 documented as of this encounter Procedures Procedure Name Priority Date/Time Associated Diagnosis Comments TRANSPORTATION ECONOMICS TEACHER SCAN 05/06/2014 9:45 AM EDT ZIOPATCH Routine [...] 05/04/20 14 10:28 AM EDT CARDIAC ENZYMES ([facility]/CGP) STAT 05/04/2014 10:28 AM EDT APTT STAT 05/04/2014 10:28 AM EDT PROTHROMBIN TIME STAT 05/04/2014 10:2 8 AM EDT CBC (WITH DIFF) STAT 05/04/2014 10:28 AM EDT BASIC METABOLIC PANEL STAT 05/04/2014 10:28 AM EDT EKG 12-LEAD STAT 05/04/2014 10:03 AM EDT Chest pain documented in this encounter Results * SCAN DOC: TRANSPORTATION ECONOMICS TEACHER (05/06/2014 9:45 AM EDT) Anatomical Region Laterality Modality Other Narrative 05/06/2014 10:22 AM EDT Procedure Note Provider, Scanning - 05/06/2014 9:45 AM EDT Scanning Provider MEDIA MGR SCAN EXT O RDR/RSLT * ZIOPATCH (05/05/2014 12:51 PM EDT) Anatomical Region Laterality Modality Other Narrative 05/24/2014 6:22 PM EDT [facility] ?ZIO PATCH ??REPORT Ordering Provider: ??Dino [...] Procedure Note Wilner Copeland MD - 05/24/2014 [facility] ZIO PATCH REPORT Ordering Provider: Dino [...] MD HEMATOLOGY ORDERABLE S Performing Organization Address [facility] Co de Phone Number [facility] PAMENNIUM * (ABNORMAL) Hepatic Function [...] Ly MD CHEMISTRY ORDERABLES Performing Organization Address [facility] de Phone Number [facility] * Hemoglobin A1c (05/05/2014 4:01 [...] Mellitus, Diabetes Care 2013; 36: Suppl. 1, Y26-59 Estimated Average Glucose 111 mg/dL [facility] Comment: eAG equivalents for HbA1c percentages: HbA1c(%) ?eAG(mg/dL) 6.0 ?126 6.5 ?140 7.0 ?154 7.5 ?169 8.0 ?183 8.5 ?197 9.0 ?212 9.5 ?226 10.0 ? 240 Limitations: The eAG calculation has not been validated on women, individuals below 18 years old and above 70 years old, and individuals with hemoglobinopathies. Additional resources are available on the ADA website: http://[employer].Medisse/DHMCadacalc Ralph FORTUNE, Hal J, Isa R, et al. ??Translating the A1C assay into estimated average glucose values. ??Diabetes Care 2008:31(8):1175-4416. Blood specimen (specimen) 05/05/2014 4:01 AM EDT 05/05/2014 4:22 AM EDT Narrative Resulting Agency Comment Spec In Lab Timmy Ly MD CHEMISTRY ORDERABLES [facility] * Lipid panel (fasting) (05/05/2014 4:01 AM EDT) Cholesterol, Total 153 <=199 mg/dL [facility] Comment: Recommendations of the NCEP Adult Treatment Panel for the following risk cutoff thresholds for the [place] population: Desirable: <200 mg/dL Borderline High: 200-239 mg/dL High: > or = 240 mg/dL Triglyceride 90 <=149 mg/dL [facility] Comment: Reference Range: Normal triglycerides: ??<150 mg/dL Borderline high: ??150-199 mg/dL High: ??200-499 mg/dL Very high: ??>sz=108 mg/dL VIDYA 2001; 285(19):6825-0507 HDL Cholesterol 83 >=40 mg/dL [facility] Comment: Reference range: ??Low HDL: ?? < 40 mg/dL ??Normal: ?40-60 mg/dL ??Desirable: > 60 mg/dL VIDYA 2001; 285(19):1845-4293 LDL Cholesterol 52 <=99 mg/dL [facility] Comment: Reference range: ?? Optimal: ?<100 mg/dL ?? Near Optimal/Above Optimal: ?? 100-129 mg/dL ?? Borderline high: ?130-159 mg/dL ?? High: ? 160-189 mg/dL ?? Very high: ?>er=403 mg/dL VIDYA 2001: 285(19):3897-6554 Cholesterol/HDL Ratio 1.8 ratio [facility] Comment: A Cholesterol to HDL ratio below 4:1 is desirable. ??Studies suggest that increased CAD risk occurs at ratios above 5 for females and above 6 for men. ? [place] Heart Association ??(http://www.americanheart.org) ? Fiordaliza Int Med, [...] intervals supplied above were not validated at [facility]. Results from pediatric patients should be interpreted [...] the following links into your internet browser. [email or web address] [email or web address]/[facility]ERnkf Blood specimen (specimen) 05/05/2014 4:01 AM EDT 05/05/2014 4:22 AM EDT Narrative Resulting Agency Comment Spec In Lab Timmy Ly MD CHEMISTRY ORDERABLES Performing Organization Address [facility] de Phone Number [facility] * BUN (05/05/2014 4:01 AM EDT) Blood Urea Nitrogen 16 8 - 18 mg/dL [facility] Blood specimen (specimen) 05/05/2014 4:01 AM EDT 05/05/2014 4:22 AM EDT Narrative Resulting Agency Comment Spec In Lab Timmy Ly MD CHEMISTRY ORDERABLES Performing Organization Address [facility] de Phone Number [facility] * Electrolytes panel (05/05/2014 4:01 AM EDT) Sodium 140 135 - 145 mmol/L [facility] MILLENNIUM Potassium 4.2 3.5 - [...] Ly MD CHEMISTRY ORDERABLES Performing Organization Address [facility] de Phone Number [facility] CAR[facility] * Cardiac Enzymes (05/05/2014 12:51 AM EDT) Troponin-T <0.03 <=0.03 ng/mL [facility] Comment: 0.03 ng/mL: Represents the 99th percentile upper reference limit for normals. >0.03 ng/mL: Elevated cardiac troponin T level indicative of myocardial damage. Diagnosis of acute, evolving or recent NJ requires a typical rise and gradual fall [...] consensus document of the Joint Society of Cardiology/[place] College of Cardiology Committee for the redefinition of myocardial infarction. ??Journal of the [place] College of Cardiology 2000; 36: 959-969] Creatine Kinase 54 0 - 160 unit/L [facility] Blood specimen (specimen) 05/05/2014 12:51 AM EDT 05/05/2014 12:55 AM EDT Narrative Resulting Agency Comment Spec In Lab Timmy Ly MD CHEMISTRY ORDERABLES Performing Organization Address [facility] de Phone Number [facility] * Cardiac Enzymes (05/04/2014 7:13 PM EDT) Troponin-T <0.03 <=0.03 ng/mL [facility] MILLENNIUM Comment: 0.03 ng/mL: Represents the 99th percentile upper reference limit for normals. >0.03 ng/mL: Elevated cardiac troponin T level indicative of myocardial damage. Diagnosis of acute, evolving or recent NJ requires a typical rise and gradual fall [...] consensus document of the Joint Society of Cardiology/[place] College of Cardiology Committee for the redefinition of myocardial infarction. ??Journal of the [place] College of Cardiology 2000; 36: 959-969] Creatine [...] intervals supplied above were not validated at [facility]. Results from pediatric patients should be interpreted [...] the following links into your internet browser. [email or web address] [email or web address] Blood specimen (specimen) 05/04/2014 10:28 AM EDT 05/04/2014 11:10 AM EDT Narrative Resulting Agency Comment Spec In Lab Timmy Ly MD CHEMISTRY ORDERABLES Performing Organization Address [facility] Co de Phone Number [employer] * Cardiac Enzymes (05/04/2014 10:28 AM EDT) Pathologist [facility] Troponin-T <0.03 <=0.03 ng/mL [facility] [employer] Comment: 0.03 ng/mL: Represents the 99th percentile upper reference limit for normals. >0.03 ng/mL: Elevated cardiac troponin T level indicative of myocardial damage. Diagnosis of acute, evolving or recent NJ requires a typical rise and gradual fall [...] consensus document of the Joint Society of Cardiology/[place] College of Cardiology Committee for the redefinition of myocardial infarction. ??Journal of the [place] College of Cardiology 2000; 36: 959-969] Creatine Kinase 62 0 - 160 unit/L [facility] [employer] Blood specimen (specimen) 05/04/2014 10:28 AM EDT 05/04/2014 11:10 AM EDT Narrative Resulting Agency Comment Spec In Lab Timmy Ly MD CHEMISTRY ORDERABLES Performing Organization Address [facility] Co de Phone Number [facility] BRYANT [...] MD HEMATOLOGY ORDERABLE S Performing Organization Address [facility] Co de Phone Number [facility] * Prothrombin Time (05/04/2014 10:28 AM EDT) Prothrombin Time 14.2 12.5 - 15.5 sec [facility] Comment: [facility] Transfusion Committee Guidelines: INR less than 2.0, PTT less than OR equal to 43.5 seconds, or Fibrinogen greater than or equal to 100 mg/dl indicate adequate procoagulant activity for hemostasis in patients without underlying bleeding disorders. International Normalization Ratio 1.0 0.9 - 1.1 [facility] Blood specimen (specimen) 05/04/2014 10:28 AM EDT 05/04/2014 11:10 AM EDT Narrative Resulting Agency Comment Spec In Lab Timmy Ly MD HEMATOLOGY ORDERABLE S Performing Organization Address [facility] Co de Phone Number [facility] * EKG 12 Lead (05/04/2014 10:03 AM EDT) Ventricular rate 55 BPM MUSE SYSTEM Atrial Rate 55 BPM MUSE SYSTEM P-R Interval 184 ms MUSE SYSTEM QRS Duration 132 ms MUSE SYSTEM Q-T Interval 496 ms MUSE SYSTEM QTC Calculated (Bezet) 474 ms MUSE SYSTEM Calculated P Gay 70 degrees MUSE SYSTEM Calculated R Gay -33 degrees MUSE SYSTEM Calculated T Gay 63 degrees MUSE SYSTEM INTERPRETATION Sinus bradycardia [...] Patch documented in this encounter Care Teams Historic Site Administrator Relationship Specialty Start Date End Date Raphael Dixon MD [address] [place] [address] PCP - General 05/04/14 07/23/22 documented as of this encounter
--- OUTSIDE RECORDS SUMMARY | 2024-07-13 18:55 | XMS_ITS | Encounter Summary ---
[place] [address] Care Team Providers Care Extrusion Die Corrector Name Role Phone Raphael Dixon MD Primary Care Provider [phone] Encounter Details Date Type Department Care Team (Latest Contact Info) Description 05/04/2014 8:23 AM EDT - 05/05/2014 12:20 PM EDT Hospital Encounter Intermediate [place] [address] Russell Whitman MD [facility] [place] [address] Timmy Ly MD [facility] [place] [address] Dino Heller MD [facility] [address] Chest pain; LBBB (left bundle branch block); [...] pm if you have questions please call [phone] Greenberg will see you on 06/08/14 at 12 noon if you have questions please call [phone] Home oxygen therapy: N/A Arrangements for VNA/home [...] Reason for Nutrition Intervention: Consult Diet Order: [facility] Appetite: Good Food allergies: NKFA Chewing/Swallowing difficulty: [...] course unless consulted in the interim. DAVID Bruns * Ellis Rose RN - 05/05/2014 12:14 PM EDT Patient Name: Floridalma Ibarra Patient Age: 63 y.o. Birthdate: 1950 Admit date: 05/04/2014 Attending Physician: Dino Heller MD Patient given discharge instructions on new medications and where to pick them up in [facility], Patient alerted to driving restriction for [...] Progress Note Patient Name: Floridalma Ibarra Service: VALIDATION MANAGER / PA Responsible Attending: Dino Heller MD [...] 63 y.o. female admitted in transfer from [facility] with 18 months of transient [...] Patient admits to depressed mood Has tried alcohol and drug counselor and antidepression meds in past without improvement Recommend follow up with PCP Suggested patient seek counselor that she can relate to 6. Nicotine dependence - Recommend patient continue to work on smoking cessation Suggest PFT's as outpatient Aliyah Beverly, FELICITY 05/05/2014 Attending Child Care Teacher Addendum: Floridalma Ibarra is a 63 y.o. [...] inthe meantime. Dino Heller M.D., F.A.C.C. Staff Child Care Teacher pager [phone] * Timmy Ly MD - 05/04/2014 4:19 PM EDT STAFF ADDENDUM: I have reviewed the available records, interviewed and examined the patient. I have discussed the patient's medical history, differential diagnosis, and plan of therapy with Aliyah Beverly and have reviewed their note dated 05/04/2014 and I agree with their note and plan of therapy. Interval History: 63yo woman transferred from [facility] for cardiac cath. She has [...] 05/04/2014 12:05 PM EDT Marian El RN,CRC, [facility] Pager [phone] Office of Care Management (OCM) / Clinical Window Shade Installer (CRC)/ Initial Assessment Discussed patient with Provider [...] None. Home Health Agency: None. Other: None. BOTTLE SORTER REFERRAL: No needs identified at this time. PRIMARY CARE PHYSICIAN: RAPHAEL DIXON MD [address] [facility] [id number] POTENTIAL DISCHARGE NEEDS: None identified at this [...] therapy. Interval History: 63yo woman transferred from [facility] for cardiac cath. She has a longstanding h/o symptoms suggestive of reflux and treated as such. Worsening symptoms prompted visit with Dr Greenberg and ETT for which she is referred for cath. EKG - LBBB with biphasic T waves in V1-3 Lab Comments: Multiple labs assessed. Problems Reviewed: LBBB R/O CAD Plan: cath * Aliyah Beverly, STROKE BELT SANDER OPERATOR - 05/04/2014 9:56 AM EDT Cardiology Admission [...] female with no known CAD transferred from [facility] with chest pressure. The patient [...] without relief from ntg. She presented to [facility]. At [facility] her labs Cr 1.1, Mg 1.6 K 3.7, trop 0.02 x3, h/h 13.6/39.6, PLT 182, PT/INR 9.7/1.0, EKG nonspecific qrs widening with possible anteroseptal ID. She was loaded with plavix 300 mg and asa 324 mg. At [facility] her VS 36.5-65-16 95/40 95% ra. Diagnostics: There is notation regarding an MPI with fixed anterior defect earlier this month however I do not have access to this test/imaging. CXR hyperinflated lungs otherwise no evidence of acute intrapulmonary process. She was started on heparin gtt and ntg gtt and transferred to [facility] for further management/work up. She is a [...] two sisters with CAD. On arrival to [facility] she is painfree on ntg gtt 20 [...] taking pepcid/intol to omeprazole Start protonix Provider: Aliayh Beverly APRN Provider #: [id number] 05/04/2014 documented in this encounter Procedure Notes * Provider, Scanning - 05/06/2014 9:45 AM EDTAssociated Order(s): SCAN DOC: REAGENT TENDER HELPER * Provider, Scanning - 05/04/2014 3:39 PM EDTAssociated Order(s): CARDIAC CATHETERIZATION documented in this encounter Miscellaneous Notes * Miscellaneous - Provider, Scanning - 05/06/2014 9:45 AM EDT * Discharge Summary - Timmy Ly MD - 05/05/2014 11:10 AM EDT Discharge Summary Patient Name: Floridalma Ibarra Patient Age: 63 y.o. Language: Estonian Race: White Ethnicity: Not nor Admit date: 05/04/2014 Discharge date and time: 05/05/2014 Attending Physician: Dino Heller MD Discharge Physician: Dino Heller MD Follow-up Recommendations for Providers: 1. Schedule EGD 2. Recommend area alcohol and drug counselor for depression 3. Schedule PFT's 4. Cardiology to follow up with ziopatch results and determine future anticoagulation needs 5. Assess toleration/effect of new protonix and asa therapy Inpatient Provider Contact Information: Aliyah Beverly, STROKE BELT SANDER OPERATOR [phone] Discharge Diagnoses (Hospital Problems) and Secondary Diagnoses [...] female with no known CAD transferred from [facility] with chest pressure. The patient [...] without relief from ntg. She presented to [facility]. At [facility] her labs Cr 1.1, Mg 1.6 K 3.7, trop 0.02 x3, h/h 13.6/39.6, PLT 182, PT/INR 9.7/1.0, EKG nonspecific qrs widening with possible anteroseptal ID. She was loaded with plavix 300 mg and asa 324 mg. At [facility] her VS 36.5-65-16 95/40 95% ra. Diagnostics: There is notation regarding an MPI with fixed anterior defect earlier this month however I do not have access to this test/imaging at the time of admission. CXR hyperinflated lungs otherwise no evidence of acute intrapulmonary process. She was started on heparin gtt and ntg gtt and transferred to [facility] [place] further management/work up. She is a [...] weight/etoh and smoking habits. She has tried alcohol and drug counselor and antidepression meds in past without improvement. Recommend follow up with PCP and suggest patient seek counselor that she can relate to as she mentioned this is why she stopped alcohol and drug counselor in the past. Nicotine dependence - [...] pm if you have questions please call [phone] Greenberg will see you on 06/08/14 at 12 noon if you have questions please call [phone] Home oxygen therapy: N/A Arrangements for VNA/home care: none Future Appointments and Orders Future Appointments: Provider: Department: Dept Phone: Center: 05/05/2014 12:30 PM Event Monitor [facility] Non-Invasive Cardiology Lab [phone] None Future Orders Please Complete By Expires RAKAN [[email or web address] Custom] 05/05/14 05/05/15 Process Instructions: Scheduling Instructions: Comments: Questions: Responses: Does the patient have a pacemaker? If yes provide HI/LO settings: Which location will this be performed? [place] Should this service/procedure be billed to the research sponsor? The ZioPatch has limited insurance coverage and patients are being billed in full. Conventional heart monitors should be ordered while payer appeals are completed. Has possible out of pocket expense been discussed with the patient? Yes Discharge References/Attachments None STAFF ADDENDUM: 63yo woman transferred from [facility] for cardiac cath. She has [...] 10:40 AM EDT Office Visit Dermatology at [facility] [address] [place] [id number] Emmanuelle Yeboah MD [facility] [place] [address] Scheduled Orders Name Type Priority Associated Diagnoses Orde r Schedule EKG 12 Lead ECG Routine Chest pain One Time for 1 Occurrences starting 05/04/2014 until 05/04/2014 EKG 12 Lead ECG Routine LBBB (left bundle branch block) One Time for 1 Occurrences starting 05/04/2014 until 05/04/2014 documented as of this encounter Procedures Procedure Name Priority Date/Time Associated Diagnosis Comments REAGENT TENDER HELPER SCAN 05/06/2014 9:45 AM EDT ZIOPATCH Routine [...] 05/05/2014 4: 01 AM EDT CARDIAC ENZYMES ([facility]) STAT 05/05/2014 12:51 AM EDT CARDIAC ENZYMES ([facility] STAT 05/04/2014 7:13 PM EDT CARDIAC CATHETERIZATION Routine 05/04/20 14 3:39 PM EDT HEMOGRAM STAT 05/04/2014 10:28 AM EDT DIFFERENTIAL, AUTOMATED STAT 05/04/20 14 10:28 AM EDT CARDIAC ENZYMES ([facility]) STAT 05/04/2014 10:28 AM EDT APTT STAT 05/04/2014 10:28 AM EDT PROTHROMBIN TIME STAT 05/04/2014 10:2 8 AM EDT CBC (WITH DIFF) STAT 05/04/2014 10:28 AM EDT BASIC METABOLIC PANEL STAT 05/04/2014 10:28 AM EDT EKG 12-LEAD STAT 05/04/2014 10:03 AM EDT Chest pain documented in this encounter Results * SCAN DOC: REAGENT TENDER HELPER (05/06/2014 9:45 AM EDT) Anatomical Region Laterality Modality Other Narrative 05/06/2014 10:22 AM EDT Procedure Note Provider, Scanning - 05/06/2014 9:45 AM EDT Scanning Provider MEDIA MGR SCAN EXT O RDR/RSLT * ZIOPATCH (05/05/2014 12:51 PM EDT) Anatomical Region Laterality Modality Other Narrative 05/24/2014 6:22 PM EDT [facility] ?ZIO PATCH ??REPORT Ordering Provider: ??Dino Heller [...] Procedure Note Wilner Copeland MD - 05/24/2014 [facility] ZIO PATCH REPORT Ordering Provider: Dino Heller [...] ORDERABLE S Performing Organization Address [facility] de Phone Number CERLISANDRA OROZCOENNIUM * (ABNORMAL) Hepatic Function Panel (05/05/2014 4:01 AM EDT) Pathologist [facility] Protein, Total 5.9(L) 6.4 - 8.3 gm/dL [...] CHEMISTRY ORDERABLES Performing Organization Address [facility] Co de Phone Number CERNER MILLENNIUM * [...] Mellitus, Diabetes Care 2013; 36: Suppl. 1, S67-21 Estimated Average Glucose 111 mg/dL [facility] Comment: eAG equivalents for HbA1c percentages: HbA1c(%) ?eAG(mg/dL) 6.0 ?126 6.5 ?140 7.0 ?154 7.5 ?169 8.0 ?183 8.5 ?197 9.0 ?212 9.5 ?226 10.0 ? 240 Limitations: The eAG calculation has not been validated on women, individuals below 18 years old and above 70 years old, and individuals with hemoglobinopathies. Additional resources are available on the ADA website: [email or web address] [email or web address] [email or web address] Ralph FORTUNE, Hal J, Isa R, et al. ??Translating the A1C assay into estimated average glucose values. ??Diabetes Care 2008:31(8):9430-5344. Blood specimen (specimen) 05/05/2014 4:01 AM EDT 05/05/2014 4:22 AM EDT Narrative Resulting Agency Comment Spec In Lab Timmy Ly MD CHEMISTRY ORDERABLES [facility] * Lipid panel (fasting) (05/05/2014 4:01 AM EDT) [facility] Signature Cholesterol, Total 153 <=199 mg/dL CERNER MILLENNIUM Comment: Recommendations of the NCEP Adult Treatment Panel for the following risk cutoff thresholds for the [place] population: Desirable: <200 mg/dL Borderline High: 200-239 mg/dL High: > or = 240 mg/dL Triglyceride 90 <=149 mg/dL CERNER MILLENNIUM Comment: Reference Range: Normal triglycerides: ??<150 mg/dL Borderline high: ??150-199 mg/dL High: ??200-499 mg/dL Very high: ??>gj=494 mg/dL VIDYA 2001; 285(19):3708-9622 HDL Cholesterol 83 >=40 mg/dL CER NER MILLENNIUM Comment: Reference range: ??Low HDL: ?? < 40 mg/dL ??Normal: ?40-60 mg/dL ??Desirable: > 60 mg/dL VIDYA 2001; 285(19):1683-0772 LDL Cholesterol 52 <=99 mg/dL CER NER MILLENNIUM Comment: Reference range: ?? Optimal: ?<100 mg/dL ?? Near Optimal/Above Optimal: ?? 100-129 mg/dL ?? Borderline high: ?130-159 mg/dL ?? High: ? 160-189 mg/dL ?? Very high: ?>qg=735 mg/dL VIDYA 2001: 285(19):7071-9526 Cholesterol/HDL Ratio 1.8 ratio CERNER MILLENNIUM Comment: A Cholesterol to HDL ratio below 4:1 is desirable. ??Studies suggest that increased CAD risk occurs at ratios above 5 for females and above 6 for men. ? [place] Heart Association ??(http://www.americanheart.org) ? Fiordaliza Int Med, 1994; 121:641 ? AM J Med, 1998; 105(1A):48S Blood specimen (specimen) 05/05/2014 4:01 AM EDT 05/05/2014 4:22 AM EDT Narrative Resulting Agency Comment Spec In Lab Timmy Ly MD CHEMISTRY ORDERABLES Performing Organization Address [facility] de Phone Number MAXWELL BRYANT * Creatinine (05/05/2014 4:01 AM EDT) Creatinine 0.94 0.70 - 1.20 mg/dL [facility] Comment: Please note that the pediatric reference intervals supplied above were not validated at [facility]. Results from pediatric patients should be interpreted in conjunction to the patient's age, height and muscle mass. Est Glomerular Filtration Rate 60 >=60 [facility] Comment: This estimated GFR (eGFR) value [...] the following links into your internet browser. [email or web address] Blood specimen (specimen) 05/05/2014 4:01 AM EDT 05/05/2014 4:22 AM EDT Narrative Resulting Agency Comment Spec In Lab Timmy Ly MD CHEMISTRY ORDERABLES Performing Organization Address [facility] de Phone Number MAXWELL BRYANT * BUN (05/05/2014 4:01 AM EDT) Blood Urea Nitrogen 16 8 - 18 mg/dL [facility] Blood specimen (specimen) 05/05/2014 4:01 AM EDT 05/05/2014 4:22 AM EDT Narrative Resulting Agency Comment Spec In Lab Timmy Ly MD CHEMISTRY ORDERABLES Performing Organization Address [facility] Co de Phone Number MAXWELL CARABALLOIUM * [...] In Lab Timmy Ly MD CHEMISTRY ORDERABLES [facility] * Cardiac Enzymes (05/05/2014 12:51 AM EDT) Pathologist [facility] Troponin-T <0.03 <=0.03 ng/mL CERNER MILLENNIUM Comment: 0.03 ng/mL: Represents the 99th percentile upper reference limit for normals. >0.03 ng/mL: Elevated cardiac troponin T level indicative of myocardial damage. Diagnosis of acute, evolving or recent ID requires a typical rise and gradual fall [...] consensus document of the Joint Society of Cardiology/[place] College of Cardiology Committee for the redefinition of myocardial infarction. ??Journal of the [place] College of Cardiology 2000; 36: 959-969] Creatine Kinase 54 0 - 160 unit/L CERNER MILLENNIUM Blood specimen (specimen) 05/05/2014 12:51 AM EDT 05/05/2014 12:55 AM EDT Narrative Resulting Agency Comment Spec In Lab Timmy Ly MD CHEMISTRY ORDERABLES Performing Organization Address [facility] de Phone Number MAXWELL BRYANT * Cardiac Enzymes (05/04/2014 7:13 PM EDT) Troponin-T <0.03 <=0.03 ng/mL [facility] Comment: 0.03 ng/mL: Represents the 99th percentile upper reference limit for normals. >0.03 ng/mL: Elevated cardiac troponin T level indicative of myocardial damage. Diagnosis of acute, evolving or recent ID requires a typical rise and gradual fall [...] consensus document of the Joint Society of Cardiology/[place] College of Cardiology Committee for the redefinition of myocardial infarction. ??Journal of the [place] College of Cardiology 2000; 36: 959-969] Creatine Kinase 53 0 - 160 unit/L [facility] BRYANT Blood specimen (specimen) 05/04/2014 7:13 PM EDT 05/04/2014 7:26 PM EDT Narrative Resulting Agency Comment Spec In Lab Timmy Ly MD CHEMISTRY ORDERABLES Performing Organization Address [facility] de Phone Number MAXWELL [...] Metabolic Panel (non-fasting) (05/04/2014 10:28 AM EDT) [facility] Glucose 87 60 - 199 mg/dL CERNER MILLENNIUM Comment:Diabetes: >=200 mg/d L plus symptoms Blood Urea Nitrogen 11 8 - 18 mg/dL CERNER MILLENNIUM Creatinine 0.87 0.70 - 1.20 mg/dL CERNER MILLENNIUM Comment: Please note that the pediatric reference intervals supplied above were not validated at [facility]. Results from pediatric patients should be interpreted [...] the following links into your internet browser. [email or web address] Blood specimen (specimen) 05/04/2014 10:28 AM EDT [...] damage. Diagnosis of acute, evolving or recent ID requires a typical rise and gradual fall [...] consensus document of the Joint Society of Cardiology/[place] College of Cardiology Committee for the redefinition of myocardial infarction. ??Journal of the [place] College of Cardiology 2000; 36: 959-969] Creatine Kinase 62 0 - 160 unit/L MAXWELL CARABALLOIUM Blood specimen (specimen) 05/04/2014 10:28 AM EDT 05/04/2014 11:10 AM EDT Narrative Resulting Agency Comment Spec In Lab Timmy Ly MD CHEMISTRY ORDERABLES Performing Organization Address [facility] Co de Phone Number MAXWELL BRYANT * (ABNORMAL) APTT (05/04/2014 10:28 AM EDT) Partial Thromboplastin Time 59(H) 25 - 35 sec [facility] OROZCOENCOM[facility] Comment: Recommended therapeutic PTT range for full dose unfractionated heparin is 80-114 seconds. Blood specimen (specimen) 05/04/2014 10:28 AM EDT 05/04/2014 11:10 AM EDT Narrative Resulting Agency Comment Spec In Lab Timmy yL MD HEMATOLOGY ORDERABLE S Performing Organization Address [facility] de Phone Number MAXWELL BRYANT * Prothrombin Time (05/04/2014 10:28 AM EDT) Prothrombin Time 14.2 12.5 - 15.5 sec [facility] OR[facility]ZCOENCOM[facility]ARL Comment: [facility] Transfusion Committee Guidelines: INR less than 2.0, PTT less than OR equal to 43.5 seconds, or Fibrinogen greater than or equal to 100 mg/dl indicate adequate procoagulant activity for hemostasis in patients without underlying bleeding disorders. International Normalization Ratio 1.0 0.9 - 1.1 [facility] CARABALLOIUM Blood specimen (specimen) 05/04/2014 10:28 AM EDT 05/04/2014 11:10 AM EDT Narrative Resulting Agency Comment Spec In Lab Timmy Ly MD HEMATOLOGY ORDERABLE S Performing Organization Address [facility] Co de Phone Number MAXWELL BRYANT * EKG 12 Lead (05/04/2014 10:03 AM EDT) Ventricular rate 55 BPM MUSE SYSTEM Atrial Rate 55 BPM MUSE SYSTEM P-R Interval 184 ms MUSE SYSTEM QRS Duration 132 ms MUSE SYSTEM Q-T Interval 496 ms MUSE SYSTEM QTC Calculated (Bezet) 474 ms MUSE SYSTEM Calculated P [place] 70 degrees MUSE SYSTEM Calculated R [place] -33 degrees MUSE SYSTEM Calculated T [place] 63 degrees MUSE SYSTEM INTERPRETATION Sinus bradycardia [...] NIGHTLY, First dose (after last modification) on [facility] 05/04/14 at 2200, Until Discontinued, Routine Given 05/04/2014 10:16 PM EDT 14 mg nitroGLYcerin 50 mg/250 mL (200 mcg/mL) infusion 1 dose, Starting on [facility] 05/04/14 at 0829, Until [facility] 05/04/14 at 0845, HERLINDA ELAM: cabinet override [...] infusion 200 mL/hr, Intravenous, CONTINUOUS, Starting on [facility] 05/04/14 at 1030, Until Soumya 05/04/14 at [...] Jocelyn Churchill RN)1930 (Stopped - Provider: Estrella oSmmers, WINDY) PRN Medication Order 05/03/2014 05/04/2014 05/05/2014 [...] Patch documented in this encounter Care Teams Extrusion Die Corrector Relationship Specialty Start Date End Date Raphael Dixon MD [address] [place] [address] PCP - General 05/04/14 07/23/22 documented as of this encounter
--- NOTE | 2024-07-13 19:57 | W.ED.GENAD ---
Discharge Plan Disposition Patient Disposition: Home Condition: Stable Discharge Details Clinical Impression: Abdominal pain of unknown cause Primary Care Provider: Xena Page ED Provider: Jr Romero Home Meds and New Rx's Prescriptions: Continued albuterol sulfate 90 mcg/actuation HFA aerosol inhaler 1 puff inhalation QID PRN (Reason: shortness of breath or wheezing) Qty: 1 2RF Rx Instructions: 1-2 puffs up to 4 times a day as needed for shortness of breath gabapentin 300 mg capsule 300 mg PO QHS Qty: 90 1RF rosuvastatin [Crestor] 10 mg tablet 10 mg PO DAILY Qty: 90 3RF cyclobenzaprine 5 mg tablet 2.5 mg PO QHS PRN (Reason: muscle spasm) Combivent Respimat 20-100 mcg/actuation mist 1 puff inhalation Q4H Qty: 4 5RF cholecalciferol (vitamin D3) 50 mcg (2,000 unit) capsule 50 mcg PO DAILY 90 Days Qty: 90 4RF Aimovig Autoinjector 140 mg/mL auto-injector 140 mg subcut QMONTH Qty: 3 4RF vortioxetine 5 mg tablet 5 mg PO DAILY Qty: 30 2RF hydroxyzine HCl 25 mg tablet 25 mg PO QHS PRN (Reason: insomnia/anxiety) Qty: 30 2RF aspirin [Adult Low Dose Aspirin] 81 mg tablet,delayed release (DR/EC) 81 mg PO DAILY Rx Instructions: per note dated 04/24/21 [facility] [facility] atenolol 25 mg tablet 25 mg PO DAILY Qty: 90 3RF clobetasol 0.05 % ointment 1 applic topical .COMPLEX Rx Instructions: 1 applic topically twice weekly x3 months, then 3 times a week for maintenance; estradiol 0.01 % (0.1 mg/gram) cream See Rx Instructions vaginal .COMPLEX Rx Instructions: Thin amount vaginally twice weekly x3 months, then 3 times a week for maintenance; ketoconazole 2 % shampoo 1 applic topical .COMPLEX Rx Instructions: 1 applic topically 2-3 times weekly. Lather on scalp, leave on 3-5 minutes, then rinse.; losartan 50 mg tablet 50 mg PO DAILY Qty: 90 3RF Rx Instructions: MAY NEED DECREASED pantoprazole 40 mg tablet,delayed release (DR/EC) See Rx Instructions .ROUTE .COMPLEX Qty: 90 1RF Dose Instruction: TAKE ONE TABLET BY MOUTH EVERY DAY Rx Instructions: TAKE ONE TABLET BY MOUTH EVERY DAY meclizine 25 mg tablet 25 mg PO TID PRN Patient Comments: TAKE ONE TABLET BY MOUTH THREE TIMES A DAY NEEDED FOR 7 DAYS FOR VERTIGO acetaminophen [Pain Reliever ES(acetaminophn)] 500 MG tablet 1,000 mg PO PRN PRN No Action magnesium citrate 125 mg capsule 125 mg PO DAILY Qty: 30 1RF Rx Instructions: Trial to help bowel regimen (pls help ID OTC if not covered by insurance) Discharge Instructions Instructions: Ondansetron, Abdominal Pain, Adult ED Additional Instructions: You were seen in the emergency department for your episode of nausea and vomiting and stool today you have known colitis and there is no pathology seen on your CT scan of your abdomen, no obstruction or colitis or diverticulitis or perforations anywhere, your laboratory workup is benign there is no evidence of severe infection or sepsis or mesenteric ischemia. We provided you with some IV fluids as it appears you are mildly dehydrated with worsening kidney function over your last couple visits, you need to try and drink more water throughout the day, I am sending you home with nausea medicine called ondansetron to take. Please call your primary care provider to seek a referral to GI doctor. Please return to the emergency department for any further episodes of severe abdominal pain, fever, nausea or vomiting especially intractable nausea or vomiting, black or bloody diarrhea. Referrals: Xena Page NP [Primary Care Provider] - Discharge Data Discharge Date/Time-TO BE ENTERED AT DEPARTURE: 07/13/24 23:06 HPI General Date/Time Provider Initiated Documentation: 07/13/24 19:05. HPI Narrative: 73 year-old female presents to ED today by POV/ambulating with a chief complaint of abdominal pain, nausea and vomiting with onset for the past 2 weeks, brief sharp pains today. Quality described as sharp lower abdominal pains, no radiation to fever, chest pain, shortness of breath, intractable nausea/vomiting, black/bloody stools. Severity is described as severe. Palliating factors include nothing specific attempted. Provoking factors include nothing specific. Events leading up to the incident/Associated Symptoms: Patient has known gastritis/duodenitis, IBS. Patient not anticoagulated. Related Data Home Medications ?Medication ?Instructions ?Recorded ?Confirmed acetaminophen 500 mg tablet (Pain 1,000 mg PO PRN PRN 05/25/18 07/14/24 Reliever Extra Strength (acetaminophen)) aspirin 81 mg tablet,delayed 81 mg PO DAILY 04/24/21 07/14/24 release (Adult Low Dose Aspirin) cholecalciferol (vitamin D3) 50 50 mcg PO DAILY 90 days #90 caps 03/10/23 07/14/24 mcg (2,000 unit) capsule atenolol 25 mg tablet 25 mg PO DAILY #90 tabs 01/10/24 07/14/24 erenumab-aooe 140 mg/mL 140 mg subcut QMONTH #3 mL 02/03/24 07/14/24 subcutaneous auto-injector (Aimovig Autoinjector) albuterol sulfate 90 mcg/actuation 1 puff inhalation QID PRN 03/04/24 07/14/24 aerosol inhaler shortness of breath or wheezing #1 inh gabapentin 300 mg capsule 300 mg PO QHS #90 caps 03/04/24 07/14/24 rosuvastatin 10 mg tablet (Crestor) 10 mg PO DAILY #90 tabs 03/06/24 07/14/24 cyclobenzaprine 5 mg tablet 2.5 mg PO QHS PRN muscle spasm 03/15/24 07/14/24 ipratropium 20 mcg-albuterol 100 1 puff inhalation Q4H #4 grams 03/15/24 07/14/24 mcg/actuation mist for inhalation (Combivent Respimat) clobetasol 0.05 % topical ointment 1 applic topical .COMPLEX 03/25/24 07/14/24 estradiol 0.01% (0.1 mg/gram) See Rx Instructions vaginal 03/25/24 07/14/24 vaginal cream .COMPLEX ketoconazole 2 % shampoo 1 applic topical .COMPLEX 03/25/24 07/14/24 losartan 50 mg tablet 50 mg PO DAILY #90 tabs 04/25/24 07/14/24 pantoprazole 40 mg tablet,delayed See Rx Instructions .Route 05/18/24 07/14/24 release .COMPLEX #90 tabs hydroxyzine HCl 25 mg tablet 25 mg PO QHS PRN insomnia/anxiety 06/20/24 07/14/24 #30 tabs vortioxetine 5 mg tablet 5 mg PO DAILY #30 tabs 06/20/24 07/14/24 meclizine 25 mg tablet 25 mg PO TID PRN 06/27/24 07/14/24 magnesium citrate 125 mg capsule 125 mg PO DAILY osmotic laxatives 07/14/24 07/14/24 #30 caps Previous Rx's ?Medication ?Instructions ?Recorded cholecalciferol (vitamin D3) 50 50 mcg PO DAILY 90 days #90 caps 03/10/23 mcg (2,000 unit) capsule atenolol 25 mg tablet 25 mg PO DAILY #90 tabs 01/10/24 erenumab-aooe 140 mg/mL 140 mg subcut QMONTH #3 mL 02/03/24 subcutaneous auto-injector (Aimovig Autoinjector) albuterol sulfate 90 mcg/actuation 1 puff inhalation QID PRN 03/04/24 aerosol inhaler shortness of breath or wheezing #1 inh gabapentin 300 mg capsule 300 mg PO QHS #90 caps 03/04/24 rosuvastatin 10 mg tablet (Crestor) 10 mg PO DAILY #90 tabs 03/06/24 ipratropium 20 mcg-albuterol 100 1 puff inhalation Q4H #4 grams 03/15/24 mcg/actuation mist for inhalation (Combivent Respimat) losartan 50 mg tablet 50 mg PO DAILY #90 tabs 04/25/24 pantoprazole 40 mg tablet,delayed See Rx Instructions .Route 05/18/24 release .COMPLEX #90 tabs hydroxyzine HCl 25 mg tablet 25 mg PO QHS PRN insomnia/anxiety 06/20/24 #30 tabs vortioxetine 5 mg tablet 5 mg PO DAILY #30 tabs 06/20/24 magnesium citrate 125 mg capsule 125 mg PO DAILY osmotic laxatives 07/14/24 #30 caps Allergies Allergy/AdvReac Type Severity Reaction Status Date / Time amoxicillin (From Augmentin) Allergy Intermediate SOB, rash Verified 07/14/24 15:17 clavulanic acid (From Allergy Intermediate SOB, rash Verified 07/14/24 15:17 Augmentin) Sulfa (Sulfonamide Allergy Intermediate swelling, Verified 07/14/24 15:17 Antibiotics) hives, itching oxycodone HCl (From Percocet) Allergy Unknown nightmares Verified 07/14/24 15:17 cilostazol AdvReac Intermediate Diarrhea Verified 07/14/24 15:17 omeprazole AdvReac Intermediate bloating, Verified 07/14/24 15:17 itching diarrhea, rotigotine AdvReac Intermediate hallucinati Verified 07/14/24 15:17 ons General Stated Complaint: Nausea/Vomit/Diar DAVID: 3 Review of Systems All systems reviewed & are unremarkable except as noted in HPI and below Exam Narrative Exam Narrative: GENERAL APPEARANCE: Well-nourished, non-toxic, awake and alert, atraumatic, no acute distress. SKIN: Warm, pink, dry, intact, without rashes/lesions/ulcerations. HEAD: Normocephalic, atraumatic, normal hair distribution for gender/age. EYES: Normal conjunctiva, no exudates on lids/lashes. ENT: Nares patent, no circumoral cyanosis, no facial swelling NECK: Supple, trachea midline, painless cervical ROM. LUNGS/CHEST: Lungs CTA bilaterally, non-labored respirations, normal A/P diameter, symmetrical expansion, no chest wall deformity HEART (CV/PV): Regular rate and rhythm without murmur, no peripheral edema, no JVD. ABDOMEN: Soft, non-distended, no guarding. MSK: Normal ROM, no swelling/deformity to bilateral UEs or LEs, moving all extremities without weakness, no cyanosis, spine midline without tenderness, normal curvature. NEURO: Mental Status AAOx4 - alert to person, place, time, events No facial droop, no forehead involvement. Motor: No focal weakness - strength 5/5 in bilateral UEs and LEs, proximal and distal, symmetric. Sensory: sensation intact to light touch globally. Gait normal: patient ambulated without ataxia into ED room. PSYCH: euthymic, cooperative, pleasant, appropriate speech Course Vital Signs Vital signs: Vital Signs Temperature 36.1 C L 07/13/24 18:50 Pulse 64 07/13/24 18:50 Respiratory Rate 16 07/13/24 18:50 Blood Pressure 111/64 07/13/24 18:50 Pulse Oximetry 97 07/13/24 18:50 Temperature 36.1 C L 07/13/24 18:50 Temperature Source Temporal Artery Scan 07/13/24 18:50 Pulse 64 07/13/24 18:50 Respiratory Rate 16 07/13/24 18:50 Respiratory Effort Normal 07/13/24 18:59 Blood Pressure 111/64 07/13/24 18:50 Blood Pressure Position Sitting 07/13/24 18:50 Pulse Oximetry 97 07/13/24 18:50 Oxygen Delivery Method Room Air 07/13/24 18:50 Oxygen Flow Rate 0 07/13/24 18:50 Pain Level 10 07/13/24 18:50 Medical Decision Making This dictation utilizes [id number] dictation software and may contain unedited grammatical errors. 73 year-old female presents to ED today by POV/ambulating with a chief complaint of abdominal pain, nausea and vomiting with onset for the past 2 weeks, brief sharp pains today. Quality described as sharp lower abdominal pains, no radiation to fever, chest pain, shortness of breath, intractable nausea/vomiting, black/bloody stools. Severity is described as severe. Palliating factors include nothing specific attempted. Provoking factors include nothing specific. Events leading up to the incident/Associated Symptoms: Patient has known gastritis/duodenitis, IBS. Patients' medical history: Peripheral vascular disease, PAD, fibromyalgia, history of hysterectomy, postprandial abdominal bloating, COPD, irritable bowel syndrome. Family and social history: noncontributory. Pertinent exam findings / vital signs include diffuse lower abdominal tenderness without Rovsing's, no tenderness at McBurney's point, no CVA tenderness to percussion bilaterally, nontoxic vitals, benign cardiopulmonary exam. Differential / pathologies of concern include IBS, constipation, colitis, diverticulitis, renal colic, IBD, SBO, less likely mesteric ischemia. Diagnostic studies of: -CBC, CMP, lipase, lactate, procalcitonin, inflammatory markers, CT abdomen/pelvis with contrast. -CBC shows no acute pathology -CMP shows creatinine of 1.5, no other actionable abnormality -Lactate and procalcitonin negative-do not suspect sepsis -Inflammatory markers negative do not suspect inflammatory bowel disease -CT shows no acute pathology Interventions of: -Given IV Tylenol, Toradol, ondansetron, patient states no improvement in pain, given IV fluid. ED Course/Assessment/Plan: 73-year-old female with acute on chronic abdominal pain issues in the setting of IBS and fibromyalgia presents for lower abdominal pain some intermittent nausea and vomiting for [address] is completely negative and laboratory workup shows no acute abnormalities, I do suspect an element of IBS causing intermittent constipation pains as well as possible fibromyalgia, I counseled the patient on the need for possible updated colonoscopy as well as possible referral to gastroenterology, strict return criteria for developing fever, intractable nausea or vomiting, increasing black or bloody stools, weakness suspicious fever, urinary symptoms. Findings not consistent with mesenteric ischemia, IBD, SBO, diverticulitis, hydronephrosis or other renal pathology, sepsis. Disposition of Abdominal Pain of Unknown Cause. Patient verbalized understanding of the plan and return to ED criteria and engaged in shared decision making. Medical Records Medical records reviewed: Yes I reviewed the patient's medical records. Imaging Data Radiologic Study: Attestation: I personally reviewed and interpreted this imaging study as follows: Imaging: CT Scan Radiologist's impression: Exam: CT Abdomen And Pelvis With Contrast Exam date and time: 07/13/2024 21:40 Age: 73 years old Clinical indication: Abdominal pain; Generalized; Prior surgery; Surgery date: 6+ months; Surgery type: Hysterectomy; Patient HX: Abd pain, n/v/d TECHNIQUE: Imaging protocol: Computed tomography of the abdomen and pelvis with contrast. Radiation optimization: All CT scans at this facility use at least one of these dose optimization techniques: automated exposure control; mA and/or kV adjustment per patient size (includes targeted exams where dose is matched to clinical indication); or iterative reconstruction. Contrast material: OMNIPAQUE 350; Contrast volume: 85 ml; Contrast route: INTRAVENOUS (IV); COMPARISON: CT ABDOMEN PELVIS W 06/27/2024 11:31 FINDINGS: Lungs: The lungs appear hyperinflated. Probable mild chronic bibasilar pulmonary fibrosis. Liver: Focal fat in the liver near the fissure for the ligamentum teres. No hepatic masses. Gallbladder and biliary ducts: The gallbladder is contracted. No significant biliary dilation or radiopaque stones in the biliary tree. Pancreas: No ductal dilation. No mass . Spleen: No splenomegaly or suspicious lesions. Adrenal glands: No suspicious mass. Kidneys and ureters: Renal cortical atrophy more pronounced on the right similar to prior. No renal masses or hydronephrosis bilaterally. Stomach and bowel: No obstruction. No mucosal thickening. Appendix: No evidence of appendicitis. Intraperitoneal space: No free air. No significant fluid collection. Vasculature: No abdominal aortic aneurysm. Lymph nodes: No significantly enlarged lymph nodes. Urinary bladder: Bladder wall upper limits of normal without definite surrounding edema. Reproductive: Hysterectomy. Bones/joints: Chronic bony changes with no acute fracture. Soft tissues: No suspicious lesions. IMPRESSION: 1. No acute findings. 2. Incidental findings as described. Dictated and Authenticated by: Kylah Mir MD. Lab Data Lab results reviewed: Yes I reviewed the patient's lab results. Labs: Laboratory Tests Range/Units 07/13/24 20:25 WBC (4.4-10.8) 10^3/uL 8.88 RBC (3.93-5.22) 10^6/uL 4.54 Hgb (11.2-15.7) g/dL 13.9 Hct (36.0-46.0) % 41.1 MCV (80-95) fL 91 MCH (27.0-33.0) pg 30.6 MCHC (32.0-36.0) % 33.8 RDW (11.7-14.6) % 13.8 Plt Count (130-400) 10^3/uL 239 MPV (8.0-11.0) fL 9.9 Immature Gran % % 0.3 Neutrophils % % 88.2 Lymphocytes % % 7.7 Monocytes % % 3.3 Eosinophils % % 0.2 Basophils % % 0.3 Nucleated RBC % (0.0-0.3) % 0.0 Absolute Neutrophils (1.2-6.7) 10^3/uL 7.83 H Absolute Lymphocytes (1.2-3.4) 10^3/uL 0.68 L Absolute Monocytes (0.1-0.8) 10^3/uL 0.29 Absolute Eosinophils (0.0-0.7) 10^3/uL 0.02 Absolute Basophils (0.0-0.2) 10^3/uL 0.03 ESR (0-30) mm/hr 10 VBG Lactate (0.6-1.4) mmol/L 1.2 Sodium (136-145) mmol/L 137 Potassium (3.5-5.1) mmol/L 4.4 Chloride (98-107) mmol/L 102 Carbon Dioxide (21.0-32.0) mmol/L 23.9 Anion Gap (3-11) mmol/L 11.1 H BUN (7-18) mg/dL 19 H Creatinine (0.55-1.02) mg/dL 1.5 H Est GFR (CKD-EPI 2020) (mL/min/1.73m2) 36.12 Glucose (74-106) mg/dL 121 H Calcium (8.5-10.1) mg/dL 9.1 Magnesium (1.8-2.4) mg/dL 1.9 Total Bilirubin (0.2-1.0) mg/dL 0.39 AST (15-37) U/L 27 ALT (14-59) U/L 21 Alkaline Phosphatase (46-116) U/L 121 H C-Reactive Protein (<or=0.5) mg/dL < 0.50 Total Protein (6.4-8.2) g/dL 7.6 Albumin (3.4-5.0) g/dL 3.9 Lipase (16-77) U/L 36 Procalcitonin ng/mL < 0.1 Quality:SDOH Health Related Social Needs: No Data to Display PFSH All Active Problems (Updated 07/14/24 @ 15:31 by Veronica Meek DO) Abdominal pain of unknown cause (Acute) Colitis (Acute) 06/27 .. with ABx helping? Abdominal pain (Acute) Vulvar atrophy (Acute) Telangiectasias (Acute 03/23/24) Seborrheic keratoses (Acute 03/23/24) Multiple melanocytic nevi (Acute 03/23/24) Seborrheic dermatitis (Acute 03/23/24) Lichen sclerosus (Acute 03/23/24) Neuritis of left ankle (Acute) Severe sprain of left ankle (Acute) Pain in right foot (Acute) Sprain of left ankle (Acute) Neuropathy (Acute) Left foot pain (Acute) Essential hypertension (Chronic 11/13/11) Postprandial abdominal bloating (Acute) Uncomfortable, lethargic .. and re-started post semaglutide d/c.. Encounter for weight management (Acute) Lost wt w/ semaglutide; bloating stopped; energy encreased Metabolic syndrome (Acute) COVID (Acute ~10/2023) Dyspepsia (Acute) Atherosclerosis (Acute) of several aa .. seeing [facility] [place] Vasc .. Neck stiffness (Acute) Hyponatremia (Acute ~07/2023) Renal artery stenosis (Acute) Elevated glucose level (Acute) Weight gain, abnormal (Acute) Pt is very stressed and disappointed; Hx emotional eating and trying to quit smkg .. [ ] semiglutide? vortiox? phent? Stenosis of iliac artery (Acute) severe pr CT ([facility], 06/2023) COPD (chronic obstructive pulmonary disease) (Chronic) Anxiety (Acute 11/13/11) Duloxetine decreased, 04/2023 Carotid artery occlusion (Chronic 11/13/11) MILD Depression (Acute 06/12/16) GERD (gastroesophageal reflux disease) (Acute 08/21/14) Esophageal pH monitoring 07-07-14 for chest pain. During chest pain episode had reflux 10% of the time Myalgia and myositis (Acute 11/13/11) Osteoporosis (Chronic 11/13/11) DEXA (2017) Osteoporosis. Reclast x 2017, 2018, 2019. [ ] 2019, 2020, 2021 Pulmonary emphysema (Chronic 06/12/16) Spinal stenosis, lumbar region, with neurogenic claudication (Chronic 11/13/11) Chiro, PT (dry needling) helps .. needs to keep it up. Wkg on core mm strength. 07/2022, ik Tobacco dependence (Acute 11/13/11) Down to 6/day .. Left bundle branch block (LBBB) (Acute) Restless leg (Acute) Neuro? Neuropathic? Moderate relief with ropinirole (2021) Mild cognitive impairment (Acute) Marlene Huff, joined us 04/24/23 Mild obstructive sleep apnea (Acute) CPAP may be helping .. 11/27/21 [facility] Sleep note 01/16/22 Sleep Clinic, f/u 04/2022 Migraine headache without aura (Acute) Irritable bowel syndrome with constipation (Acute) Arthritis of hand (Acute) Incontinence of bowel (Acute) Episodic Pelvic floor weakness in female (Acute) Fatigue (Acute) Cervical (neck) region somatic dysfunction (Acute) disc narrowing (C5-6-7) per MRI, 06/08/23 [ ] [facility] [place] Spine Epigastric pain (Acute) Medical History (Updated 07/14/24 @ 15:31 by Veronica Meek DO) Atherosclerotic cardiovascular disease Peripheral vascular disease, unspecified (04/24/21) Moderate RLE PAD, Mild LLE PAD , [facility]ITA's [facility] [place] Hyperkalemia Encounter for diagnostic colonoscopy due to change in bowel habits Fibromyalgia Peripheral arterial disease BONITA ([facility]07/26/22)Mod RT, Mild LFT TTH (tension-type headache) SOB (shortness of breath) on exertion Significant worsening x weeks, 03/2021 Chest pain negative cardiac w/u Vulvar pruritus Not responsive to topical estrogen. 09/2019 patient treated with clobetasol cream 11/2019 symptoms improving we will continue twice weekly Lumbar radicular syndrome Non-cardiac chest pain (05/01/15) Irritable colon (11/13/11) Surgical History History of esophagogastroduodenoscopy (~05/2023) Hx of hand surgery Oophrectomy, Both Abdominal hysterectomy Colonoscopy - IV Sedation (11/22/21) 07/07/14 Dr. Meraz Family History Sister Essential hypertension Brother Essential hypertension Sister Rheumatoid arthritis Hypertension Social History Smoking/Tobacco Use Status: Current every day Tobacco Type: cigarettes Tobacco: How many years used: 50 Quit status: quit date established Smoking risk assessment performed?: Yes Alcohol Intake: current Alcohol Intake frequency: a few times a week Alcohol type: beer Drug use: Never Substance use type: does not use Caregiver/Support person: No Household members: spouse and other Details: H-[place]vel x 50yrs Housing: house Number of Children: 2 number of grandchildren: 1 Communication Needs: Corrective Lenses current occupation: retired Current gender identity: female What is your relationship status?: Panel score (0-1 are the most socially isolated patients): 1 What type of physical activity do you participate in: walking Duration: 30-45 minutes/day Frequency: 5-6 times per week Seatbelt use: always Drive intox or ride w/intox cdl company flatbed driver: No Working smoke detector in home: Yes Fire extinguisher in home: Yes Carbon monox detector in home: Yes Do you feel safe at home: Yes (unable to assess privately) Do you feel safe in your relationship?: Yes Victim of physical abuse: No Victim of emotional abuse: No Victim of sexual abuse: No
--- NOTE | 2024-07-13 20:00 | DI.CT_ITS ---
Exam(s) CT ABDOMEN PELVIS W EXAM: CT ABDOMEN PELVIS W CLINICAL HISTORY: ABD pain, N/V/D TECHNIQUE: Imaging Protocol: Axial computed tomography images with coronal and sagittal reformatted images were created and reviewed. CONTRAST MATERIAL: Intravenous: Omnipaque 350 Contrast volume:85 mL Oral: No COMPARISON: CT CT ABDOMEN PELVIS W from 06/27/2024 FINDINGS: ABDOMEN: Lung Bases: There is dependent atelectasis in the lung bases. Liver: Normal density. No measurable mass. Portal, Superior Mesenteric, and Splenic Veins: Unremarkable. Gallbladder and Biliary Tract: No radiodense calculus or dilation. Pancreas: Normal density, no abnormal calcifications or inflammatory process. Spleen: Normal. Adrenals: No masses seen. Kidneys: There is right renal cortical atrophy. No radiodense stones or obstructive uropathy. There are tiny hypodensities seen in the kidneys bilaterally. They are too small further characterization but likely reflect small cysts. No follow-up is recommended. Abdominal Aorta: Abdominal portion non-dilated. Atherosclerotic calcification is present. This does result in marked stenosis at the origin of the left common iliac artery. There is also heavy calcifi cation at the origin of the left renal artery. Bowel: There is a moderate amount of stool in the colon. There is no evidence of bowel obstruction. There is mild wall thickening seen in loops of small bowel in the central abdomen which may represen t enteritis. No evidence of appendicitis. Peritoneal Cavity: No ascites, collection or mesenteric inflammatory response. No free air. Lymph Nodes: Within normal limits. Bones: Within normal limits for the patient's age. Soft Tissues: Unremarkable. PELVIS: Bladder: Symmetric distention, no gross wall thickening. Reproductive Organs: The uterus is absent. Lymph Nodes: Within normal limits. Bones: Within normal limits for the patient's age. IMPRESSION: Mild thickening of the wall of loops of small bowel in the central abdomen which may represent enteri tis. Please correlate clinically. RADIATION DOSE DELIVERED: 377.81mGy.cm Total DLP DATA REPOSITORY: All CT scans at this facility are submitted to the National Radiology Data Registry (NRDR) Dose Index Registry (DIR) with the [employer] (ACR). RADIATION OPTIMIZATION: All CT scans at this facility use at least one of these dose optimization te chniques: automated exposure control; mA and/or kV adjustment per patient size (includes targeted exa ms where dose is matched to clinical indication); or iterative reconstruction.
[2024-07-13 20:34] LABS: Lactate 1.2 mmol/L (0.6-1.4)
[2024-07-13] MEDS: ACETAMINOPHEN 1,000 MG/100 ML BTL 400 MG IVPB (20:35)
[2024-07-13] MEDS: Ondansetron 4 MG/2 ML VIAL IVP (20:36)
[2024-07-13] MEDS: Lactated Ringers 1,000 ML 1000 ML IV (20:36)
[2024-07-13 20:38] LABS: Abs Immature Grans 0.03 10^3/uL (0.0-0.06); Absolute Basophil Count 0.03 10^3/uL (0.0-0.2); Absolute Eosinophil Count 0.02 10^3/uL (0.0-0.7); Absolute Lymphocyte Count 0.68 10^3/uL (1.2-3.4); Absolute Monocyte Count 0.29 10^3/uL (0.1-0.8); Absolute Neutrophil Count 7.83 10^3/uL (1.2-6.7); Basophils % 0.3 %; Eosinophils % 0.2 %; HCT 41.1 % (36.0-46.0); HGB 13.9 g/dL (11.2-15.7); Immature Grans % 0.3 %; Lymphocytes % 7.7 %; MCH 30.6 pg (27.0-33.0); MCHC 33.8 % (32.0-36.0); MCV 91 fL (80-95); MPV 9.9 fL (8.0-11.0); Monocytes % 3.3 %; Neutrophils % 88.2 %; Platelet Count 239 10^3/uL (130-400); RBC 4.54 10^6/uL (3.93-5.22); RDW 13.8 % (11.7-14.6); RDW-SD 46.1 fL; WBC 8.88 10^3/uL (4.4-10.8)
[2024-07-13 20:40] LABS: ESR 10 mm/hr (0-30)
[2024-07-13 20:59] LABS: ALT 21 U/L (14-59); AST 27 U/L (15-37); Albumin 3.9 g/dL (3.4-5.0); Alkaline Phosphatase 121 U/L (46-116); Anion Gap 11.1 mmol/L (3-11); BUN 19 mg/dL (7-18); Bilirubin, Total 0.39 mg/dL (0.2-1.0); CO2 23.9 mmol/L (21.0-32.0); CREATININE 1.5 mg/dL (0.55-1.02); Calcium 9.1 mg/dL (8.5-10.1); Chloride 102 mmol/L (98-107); Estimated GFR 36.12 (mL/min/1.73m2); Glucose 121 mg/dL (74-106); Lipase 36 U/L (16-77); Magnesium 1.9 mg/dL (1.8-2.4); Potassium 4.4 mmol/L (3.5-5.1); Sodium 137 mmol/L (136-145); Total Protein 7.6 g/dL (6.4-8.2)
[2024-07-13 21:01] LABS: C-Reactive Protein < 0.50 mg/dL (<or=0.5)
[2024-07-13 21:09] LABS: Procalcitonin < 0.1 ng/mL
[2024-07-13] MEDS: Omnipaque 350 MG/ML 100 ML BTL IJ (21:49)
[2024-07-13] MEDS: Normal Saline Flush 10 ML SYR IVP (21:50)
[2024-07-13] MEDS: Normal Saline - Diluent 50 ML VIAL IJ (21:50)
--- NOTE | 2024-07-13 22:26 | DI.VRAD_ITS ---
PROCEDURE INFORMATION: Exam: CT Abdomen And Pelvis With Contrast Exam date and time: 07/13/2024 21:40 Age: 73 years old Clinical indication: Abdominal pain; Generalized; Prior surgery; Surgery date: 6+ months; Surgery type: Hysterectomy; Patient HX: Abd pain, n/v/d TECHNIQUE: Imaging protocol: Computed tomography of the abdomen and pelvis with contrast. Radiation optimization: All CT scans at this facility use at least one of these dose optimization techniques: automated exposure control; mA and/or kV adjustment per patient size (includes targeted exams where dose is matched to clinical indication); or iterative reconstruction. Contrast material: OMNIPAQUE 350; Contrast volume: 85 ml; Contrast route: INTRAVENOUS (IV); COMPARISON: CT ABDOMEN PELVIS W 06/27/2024 11:31 FINDINGS: Lungs: The lungs appear hyperinflated. Probable mild chronic bibasilar pulmonary fibrosis. Liver: Focal fat in the liver near the fissure for the ligamentum teres. No hepatic masses. Gallbladder and biliary ducts: The gallbladder is contracted. No significant biliary dilation or radiopaque stones in the biliary tree. Pancreas: No ductal dilation. No mass . Spleen: No splenomegaly or suspicious lesions. Adrenal glands: No suspicious mass. Kidneys and ureters: Renal cortical atrophy more pronounced on the right similar to prior. No renal masses or hydronephrosis bilaterally. Stomach and bowel: No obstruction. No mucosal thickening. Appendix: No evidence of appendicitis. Intraperitoneal space: No free air. No significant fluid collection. Vasculature: No abdominal aortic aneurysm. Lymph nodes: No significantly enlarged lymph nodes. Urinary bladder: Bladder wall upper limits of normal without definite surrounding edema. Reproductive: Hysterectomy. Bones/joints: Chronic bony changes with no acute fracture. Soft tissues: No suspicious lesions. IMPRESSION: 1. No acute findings. 2. Incidental findings as described. Dictated and Authenticated by: Kylah Mir MD. Ordering:YEE Norris MD
[2024-07-13] MEDS: Ketorolac 15 MG/ML VIAL IVP (22:35)
== END 2024-07-13 23:06 | disposition home or self-care (01) ==
PROVIDERS: Emergency Provider Physician Assistant; PCP Nurse Practitioner
DX: R11.2 Nausea with vomiting, unspecified (principal); R10.30 Lower abdominal pain, unspecified
CPT/HCPCS: 80053; 83690; 84145; 85652; 96361; 96365; 96375; 99285; 74177; 83605; 83735; 85025; 86140; 99283; J0131; J1885; J2405; J3490

== ENCOUNTER → 2024-08-03 15:28 | Outpatient (BNVA) | payer MEDICARE, OTHER, SELFPAY | PROVIDERS: PCP Nurse Practitioner; Visit Provider Nurse Practitioner Adult Health | DX: G43.009 Migraine without aura, not intractable, without status migrainosus (principal) | CPT/HCPCS: 99214 ==

== ENCOUNTER → 2024-09-13 14:34 | Outpatient (BNVA) | payer MEDICARE, OTHER, SELFPAY | PROVIDERS: PCP Nurse Practitioner; Referring Provider Student in an Organized Health Care Education/Training Program; Visit Provider Physician Assistant Surgical | DX: J44.9 Chronic obstructive pulmonary disease, unspecified (principal); K21.9 Gastro-esophageal reflux disease without esophagitis; G47.33 Obstructive sleep apnea (adult) (pediatric); F17.210 Nicotine dependence, cigarettes, uncomplicated | CPT/HCPCS: 99214 ==

== ENCOUNTER 2024-09-16 10:34 | Outpatient (CLI) | payer MEDICARE, OTHER, SELFPAY ==
--- NOTE | 2024-09-16 10:30 | RT.EKG_ITS ---
APPROVED REPORT Exam: Resting ECG Reason for Exam: cardiovascular disease Patient Location: O HR:62 bpm ECG Measurements Heart Rate 62 AXIS MD 205 P 74 QRSd 137 QRS -27 QT 482 T 93 QTc 490 Conclusion Sinus rhythm...normal P axis, V-rate 50- 99 Left bundle branch block...QRSd>120, broad/notched R
== END 2024-09-16 10:35 | disposition home or self-care (01) ==
LOC: DI.CARD 10:39
PROVIDERS: PCP Nurse Practitioner; Visit Provider Internal Medicine Cardiovascular Disease
DX: I25.10 Atherosclerotic heart disease of native coronary artery without angina pectoris (principal)
CPT/HCPCS: 93010

== ENCOUNTER → 2024-09-16 10:34 | Outpatient (BNVA) | payer MEDICARE, OTHER, SELFPAY | PROVIDERS: PCP Nurse Practitioner; Referring Provider Nurse Practitioner; Visit Provider Internal Medicine Cardiovascular Disease | DX: I10 Essential (primary) hypertension (principal); I73.9 Peripheral vascular disease, unspecified; I44.7 Left bundle-branch block, unspecified; I25.10 Atherosclerotic heart disease of native coronary artery without angina pectoris | CPT/HCPCS: 93005; 99213 ==

== ENCOUNTER 2025-01-19 02:21 | Outpatient (CLI) | payer MEDICARE, OTHER, SELFPAY ==
[2025-01-19 08:06] LABS: ALT 16 U/L (14-59); AST 20 U/L (15-37); Albumin 3.6 g/dL (3.4-5.0); Alkaline Phosphatase 122 U/L (46-116); BUN 26 mg/dL (7-18); Bilirubin, Total 0.4 mg/dL (0.2-1.0); CREATININE 1.4 mg/dL (0.55-1.02); Calcium 9.2 mg/dL (8.5-10.1); Calculated LDL 74 mg/dL (<100); Chloride 108 mmol/L (98-107); Cholesterol 167 mg/dL (<200); Estimated GFR 38.99 (mL/min/1.73m2); Glucose 97 mg/dL (74-106); HDL Cholesterol 81 mg/dL (>or=50); Potassium 4.4 mmol/L (3.5-5.1); Sodium 144 mmol/L (136-145); Total Protein 7.2 g/dL (6.4-8.2); Triglyceride 64 mg/dL (<150)
== END 2025-01-19 02:22 | disposition home or self-care (01) ==
PROVIDERS: PCP Nurse Practitioner; Referring Provider Nurse Practitioner; Visit Provider Nurse Practitioner
DX: E78.5 Hyperlipidemia, unspecified (principal); I10 Essential (primary) hypertension
CPT/HCPCS: 36415; 80053; 80061

== ENCOUNTER 2025-02-03 00:43 | Outpatient (CLI) | payer MEDICARE, OTHER, SELFPAY ==
--- NOTE | 2025-02-03 09:41 | DI.CTLCSR_ITS ---
Exam(s) CT CHEST LUNG CANCER SCREEN EXAM: CT CHEST LUNG CANCER SCREEN CLINICAL HISTORY: Screening for lung cancer,CURRENT SMOKER, F17.210 TECHNIQUE: Imaging Protocol: Axial computed tomography images with coronal and sagittal reformatted images were created and reviewed. Low dose screening protocol. COMPARISON: CT CT CHEST LUNG CANCER SCREEN from 02/01/2024 FINDINGS: Tracheobronchial tree: No bronchiectasis or mucus plugging. Mediastinum and Ashlie: No dominant adenopathy or fluid collection. Pulmonary parenchyma: No consolidation or dominant measurable mass. Moderate emphysematous changes. I ncreased interstitial changes throughout, greatest peripherally at the lung bases. Mild apical scarr ing. Interstitial changes. Lung Nodules: Stable small perifissural nodule on the left. Pleura: No effusion. No pneumothorax. Heart: The heart is not dilated. Moderate coronary artery calcifications are seen. No pericardial eff usion. Aorta: Thoracic aorta non-dilated. Mild atherosclerotic changes. Upper abdomen: Unremarkable. Bones: Unremarkable for age. Soft Tissues: Unremarkable. IMPRESSION: No suspicious pulmonary nodules. Lung RADS Cat 1 - Negative: No nodules and definitely benign nodules Lung-RADS 1.0 CATEGORIES: Category 0 - Prior chest CT exam(s) being located for comparison. Category 1 - Annual screening in 12 months. No nodules or definitely benign nodules. Category 2 - Annual screening in 12 months. Benign appearance. Nodules with low likelihood of becomin g active cancer. Category 3 - 6-month follow-up. Probably benign. Short-term follow-up suggested. Nodules with low lik elihood of becoming active cancer. Category 4A - 3-month follow-up and CT/PET if >8 mm in size. Suspicious finding. Findings which requi re additional testing. Category 4B - Findings which require additional testing and tissue sampling. Category 4X - Category 3 or 4 nodules with additional features or imaging findings that increases the suspicion of malignancy. Modifier S- Potentially clinically significant findings (non lung cancer) RADIATION DOSE DELIVERED: !Error Total DLP DATA REPOSITORY: All CT scans at this facility are submitted to the National Radiology Data Registry (NRDR) Dose Index Registry (DIR) with the [employer] (ACR). RADIATION OPTIMIZATION: All CT scans at this facility use at least one of these dose optimization te chniques: automated exposure control; mA and/or kV adjustment per patient size (includes targeted exa ms where dose is matched to clinical indication); or iterative reconstruction.
== END 2025-02-03 01:03 ==
LOC: DI 00:43
PROVIDERS: PCP Nurse Practitioner; Visit Provider Physician Assistant Surgical
DX: F17.210 Nicotine dependence, cigarettes, uncomplicated (principal); Z12.2 Encounter for screening for malignant neoplasm of respiratory organs
CPT/HCPCS: 71271

== ENCOUNTER 2025-03-02 01:27 | Outpatient (CLI) | payer MEDICARE, OTHER, SELFPAY ==
--- NOTE | 2025-03-02 06:13 | DI.MRI_ITS ---
Exam(s) MR CERVICAL SPINE WO EXAM: MR CERVICAL SPINE WO CLINICAL HISTORY: FORAMINA STENOSIS CERVICAL REGION,CHRONIC NECK PAIN,DDD,M54.2 TECHNIQUE: Multiplanar multisequence MRI of the cervical spine was performed without intravenous con trast. COMPARISON: MR MR CERVICAL SPINE WO from 06/08/2023 FINDINGS: BONES: Vertebral body heights are maintained. Intervertebral disc spaces are normal. Alignment is nor mal. There are degenerative endplate signal changes most marked at C5-C6. CERVICAL CORD: Craniovertebral junction is unremarkable. The cervical cord is normal size and signal intensity. There is no evidence of a Chiari malformation. SOFT TISSUES: Unremarkable. C2-3: No disc herniation or bulge is identified. No significant central spinal canal or neural forami nal stenosis. C3-4: No disc herniation or bulge is identified. No significant central spinal canal or neural forami nal stenosis C4-5: No disc herniation or bulge is identified. No significant central spinal canal or neural forami nal stenosis C5-6: There is mild prominence of the osteophyte disc complex. No significant central spinal canal s tenosis is seen. There is mild bilateral neural foraminal stenosis at this level. There are mild de generative changes of the uncovertebral joints. C6-7: There is mild prominence of the osteophyte disc complex. No significant central spinal canal s tenosis is seen. There is spve-xd-[id number] bilateral neural foraminal stenosis. Mild degenerative c hanges of the uncovertebral joints are noted. C7-T1: No disc herniation or bulge is identified. No significant central spinal canal or neural charis inal stenosis IMPRESSION: Stable degenerative changes seen predominantly at C5-6 and C6-C7 resulting in bilateral neural forami nal stenosis. DATA REPOSITORY:
== END 2025-03-02 01:47 ==
LOC: DI 01:27
PROVIDERS: PCP Nurse Practitioner; Visit Provider Nurse Practitioner
DX: M48.02 Spinal stenosis, cervical region (principal)
CPT/HCPCS: 72141

== ENCOUNTER → 2025-03-16 15:01 | Outpatient (BNVA) | payer MEDICARE, OTHER, SELFPAY | PROVIDERS: PCP Nurse Practitioner; Referring Provider Nurse Practitioner; Visit Provider Physician Assistant Surgical | DX: J44.9 Chronic obstructive pulmonary disease, unspecified (principal); K21.9 Gastro-esophageal reflux disease without esophagitis; F17.200 Nicotine dependence, unspecified, uncomplicated; G47.33 Obstructive sleep apnea (adult) (pediatric) | CPT/HCPCS: 99214 ==

== ENCOUNTER 2025-04-21 13:55 | Day surgery (SDC) | payer MEDICARE, OTHER, SELFPAY ==
[2025-04-21 14:00] VITALS: BP 161/80; PULSE 69; RESP 16; TEMP 36.3; O2SAT 97
[2025-04-21] MEDS: Tropicam./Phenyleph. (1/2.5%) 5 ML BTL OD ×3 (14:13→14:23)
--- NOTE | 2025-04-21 14:28 | W.ANESPRE ---
General Info Date of Service Date Performed: 04/21/25 Height: 5 ft 4 in Weight: 61.5 kg Body Mass Index (BMI): 23.3 Surgical Procedure: Operation Date: 04/21/25 14:25 Proposed Procedure Side Surgeon p Cataract Extraction with IOL Implant Right Shawn Madrid MD Meds Allergies and Home Medications Allergies Allergy/AdvReac Type Severity Reaction Status Date / Time amoxicillin (From Augmentin) Allergy Intermediate SOB, rash Verified 04/21/25 14:15 clavulanic acid (From Allergy Intermediate SOB, rash Verified 04/21/25 14:15 Augmentin) Sulfa (Sulfonamide Allergy Intermediate swelling, Verified 04/21/25 14:15 Antibiotics) hives, itching oxycodone HCl (From Percocet) Allergy Unknown nightmares Verified 04/21/25 14:15 cilostazol AdvReac Intermediate Diarrhea Verified 04/21/25 14:15 omeprazole AdvReac Intermediate bloating, Verified 04/21/25 14:15 itching diarrhea, rotigotine AdvReac Intermediate hallucinati Verified 04/21/25 14:15 ons Home Medication ?Medication ?Instructions ?Recorded acetaminophen 500 mg tablet (Pain 1,000 mg PO PRN PRN 05/25/18 Reliever Extra Strength (acetaminophen)) aspirin 81 mg tablet,delayed 81 mg PO DAILY 04/24/21 release (Adult Low Dose Aspirin) cholecalciferol (vitamin D3) 50 50 mcg PO DAILY 90 days #90 caps 03/10/23 mcg (2,000 unit) capsule ipratropium 20 mcg-albuterol 100 1 puff inhalation Q4H #4 grams 03/15/24 mcg/actuation mist for inhalation (Combivent Respimat) clobetasol 0.05 % topical ointment 1 applic topical .COMPLEX 03/25/24 estradiol 0.01% (0.1 mg/gram) See Rx Instructions vaginal 03/25/24 vaginal cream .COMPLEX ketoconazole 2 % shampoo 1 applic topical .COMPLEX 03/25/24 magnesium citrate 125 mg capsule 125 mg PO DAILY osmotic laxatives 07/14/24 #30 caps gabapentin 300 mg capsule 600 mg (2 x 300 mg) PO QHS #180 08/15/24 caps Melatonin/CBD Gummies 2 tab PO HS 11/07/24 Rhubarb Supplement 3 cap PO HS 11/07/24 atenolol 25 mg tablet 25 mg PO DAILY #90 tabs 11/07/24 pantoprazole 40 mg tablet,delayed See Rx Instructions .Route 11/07/24 release .COMPLEX #90 tabs losartan 100 mg tablet 50 mg PO DAILY 03/16/25 albuterol sulfate 90 mcg/actuation 1 puff inhalation QID PRN 03/20/25 aerosol inhaler shortness of breath or wheezing #1 inh atorvastatin 10 mg tablet 5 mg (1/2 x 10 mg) PO DAILY 04/11/25 cholesterol #30 tabs Current Visit Medications: Current Medications Generic Name Dose Route Start Last Admin Trade Name Freq PRN Reason Stop Dose Admin Acetaminophen 1,000 mg 04/21/25 06:05 Acetaminophen 500 Mg Tab PO 05/21/25 06:04 Q4H PRN PRN Balanced Salt Solution 500 ml 04/21/25 06:05 Balanced Salt Soln.-Plus 500 Ml Bag OP 05/21/25 06:04 DIRECTED TANA Miscellaneous Medication 0 ml 04/21/25 06:05 Prednisolone 1%, Moxifloxacin 0.5%, Bromfenac 0.09% 5.6ml Btl OD 05/21/25 06:04 DIRECTED TANA Miscellaneous Medication 0 ml 04/21/25 06:05 04/21/25 14:23 Tropicam./Phenyleph. (1/2.5%) 5 Ml Btl OD 05/21/25 06:04 1 drp DIRECTED TANA Administration Tetracaine HCl 0 ml 04/21/25 06:05 Tetracaine 0.5% 4 Ml Btl OD 05/21/25 06:04 DIRECTED TANA PFSH Active Problems Active Problems: Problem Status Onset Code Nuclear age-related cataract, right eye Acute H25.11 BMI 23.0-23.9, adult Acute Z68.23 Pre-op exam Acute Z01.818 Neoplasm of unspecified behavior of bone, soft tissue, and skin Acute D49.2 Other spondylosis with radiculopathy, cervical region Acute ~03/09/25 M47.22 Hyperlipidemia Acute E78.5 Lymphocytic colitis Acute ~11/2024 K52.832 Hiatal hernia Chronic ~11/14/24 K44.9 Vulvar atrophy Acute N90.5 Telangiectasias Acute 03/23/24 I78.1 Seborrheic keratoses Acute 03/23/24 L82.1 Multiple melanocytic nevi Acute 03/23/24 D22.9 Seborrheic dermatitis Acute 03/23/24 L21.9 Lichen sclerosus Acute 03/23/24 L90.0 Neuritis of left ankle Acute G57.92 Severe sprain of left ankle Acute S93.402A Pain in right foot Acute M79.671 Sprain of left ankle Acute S93.402A Neuropathy Acute G62.9 Left foot pain Acute M79.672 Essential hypertension Chronic 11/13/11 I10 Postprandial abdominal bloating Acute R14.0 Encounter for weight management Acute Z76.89 Metabolic syndrome Acute E88.810 COVID Acute ~10/2023 U07.1 Dyspepsia Acute R10.13 Atherosclerosis Acute I70.90 Neck stiffness Acute M43.6 Hyponatremia Acute ~07/2023 E87.1 Renal artery stenosis Acute I70.1 Elevated glucose level Acute R73.09 Weight gain, abnormal Acute R63.5 Stenosis of iliac artery Acute I77.1 COPD (chronic obstructive pulmonary disease) Chronic J44.9 Anxiety Acute 11/13/11 F41.9 Carotid artery occlusion Chronic 11/13/11 I65.29 Depression Acute 06/12/16 F32.9 GERD (gastroesophageal reflux disease) Acute 08/21/14 K21.9 Myalgia and myositis Acute 11/13/11 Osteoporosis Chronic 11/13/11 M81.0 Pulmonary emphysema Chronic 06/12/16 J43.9 Spinal stenosis, lumbar region, with neurogenic claudication Chronic 11/13/11 M48.062 Tobacco dependence Acute 11/13/11 F17.200 Left bundle branch block (LBBB) Acute I44.7 Restless leg Acute G25.81 Mild cognitive impairment Acute G31.84 Mild obstructive sleep apnea Acute G47.33 Migraine headache without aura Acute G43.009 Irritable bowel syndrome with constipation Acute K58.1 Arthritis of hand Acute M19.049 Incontinence of bowel Acute R15.9 Pelvic floor weakness in female Acute N81.89 Fatigue Acute R53.83 Cervical (neck) region somatic dysfunction Acute M99.01 Epigastric pain Acute R10.13 Medical History Medical History Atherosclerotic cardiovascular disease Peripheral vascular disease, unspecified (04/24/21) Moderate RLE PAD, Mild LLE PAD , [facility] Hyperkalemia Encounter for diagnostic colonoscopy due to change in bowel habits Fibromyalgia Peripheral arterial disease [facility] ([facility])(07/26/22)Mod RT, Mild LFT TTH (tension-type headache) SOB (shortness of breath) on exertion Significant worsening x weeks, 03/2021 Chest pain negative cardiac w/u Vulvar pruritus Not responsive to topical estrogen. 09/2019 patient treated with clobetasol cream 11/2019 symptoms improving we will continue twice weekly Lumbar radicular syndrome Non-cardiac chest pain (05/01/15) Irritable colon (11/13/11) Surgical History Surgical History Hx of colonoscopy (11/14/24) 11/14/24 [facility], Dr. Lawrence. pre-op dx: chronic diarrhea,abnormal CT scan. Post op dx: Sigmoid diverticulosis. segmental bx's taken to exclude colitis. pathology pending. per [facility] ov note from 11/29/24; normal ileocolonoscopy. Segmental biopsies showed lymphocytic colitis. No polyps. History of esophagogastroduodenoscopy (11/14/24) 11/14/24 EGD w/ bx.HE 05/202311/14/24-[facility] for N/V, GERD.Dr. Lawrence. post op dx: Hiatal Hernia. bx's taken. path pending. 11/29/24-[facility] ov note: 2cm hiatal hernia.No celiac disease,H pylori.mild reactive gastropathic Hx of hand surgery Oophrectomy, Both Abdominal hysterectomy Colonoscopy - IV Sedation (11/22/21) 07/07/14 Dr. Meraz Tobacco Smoking/Tobacco Use Status: Current every day Tobacco Type: cigarettes Alcohol Alcohol Intake: current Alcohol intake frequency: a few times a week Alcohol type: beer Substance Use Substance use: Never Substance use type: does not use Vital Signs and Lab Results Vital Signs Most Recent Vital Signs in EMR: Most Recent Vital Signs Temp Pulse Resp BP Pulse Ox 36.3 C L 69 16 161/80 H 97 04/21/25 14:00 04/21/25 14:00 04/21/25 14:00 04/21/25 14:00 04/21/25 14:00 Imaging and Studies Imaging and Studies Study information below may be from another EMR and interpreted by another provider. Please see original notes in EMR for more complete details. EKG Summary: 12/01: sinus geremias, LBBB. 03/2021: sinus rhythm...normal P axis, V-rate 60- 99 Left bundle branch block...QRSd>120, broad/notched R Stress Test Summary: 03/31: 78% predicted HR achieved, ECG was negative. MPI with no evidence of ischemia or infarction, EF 56%. 04/2021: MPI Conclusion Ejection fraction was 67% with stress. There were no wall motion abnormalities. There was no evidence of ischemia on the imaging portion of the exam. This represents a normal SPECT stress test. Echocardiogram Summary: 05/31: LVEF 55%, AoV sclerotic w/o stenosis or regurg, trace to mild MR, trace TR, RVSP 27 mmhg. 04/2021: Conclusion Normal left ventricular wall thickness and chamber size. Estimated ejection fraction is 55%. Wall motion is normal. Normal right ventricular size and systolic function Both atria are normal in size The aortic valve is mildly sclerotic and trileaflet. There is no aortic stenosis or regurgitation Mild mitral annular calcification. Mild mitral regurgitation Normal tricuspid valve with trace to mild regurgitation Normal pulmonic valve with trace regurgitation Carotid Artery Summary:: 04/2017: Mild calcific plaque. No evidence of a significant internal carotid artery stenosis Pulmonary Function Summary: 03/31: mild airflow obstruction with decreased diffusion. consistent with COPD. Anesthesia Assessment and Plan Anesthesia History Personal History: No History of Anesthesia Complications Family History: No Family History of Anesthesia Complications Exercise Tolerance Exercise Tolerance: Metabolic Equivalents<4 (secondary to emphysema) Pertinent Negatives Pertinent Negatives: No Major Cardiovascular Symptoms or Complaints and No Major Pulmonary Symptoms or Complaints Cardiac & Pulmonary Exam Cardiac Exam: Normal S1/S2 Heart Sounds Pulmonary Exam: Clear Bilateral Breath Sounds Implantable Cardiac Device Does patient have a Pacemaker or an ICD?: No Airway Exam Known Difficult Airway: No Mallampati Class: 3 Mouth Opening: Normal (> 3cm) Thyromental Distance: Greater than 3 cm Neck Range of Motion: Full ROM Neck Circumference: Normal Teeth Condition: Normal Dentition (partials left at home) ASA Classification ASA Score: ASA 3 Emergency Case?: No NPO Status NPO Status: NPO Clears >2 hours, Solids >8 hours Anesthesia Plan Resuscitation Status: Full Code Anesthesia Technique: MAC Anesthesia Airway Planned: Natural Airway Monitors Used: Standard Monitors
[2025-04-21 14:31] VITALS: BMI 23.3
[2025-04-21] MEDS: Duovisc Viscoelastic System EACH 1 EACH (14:45)
[2025-04-21] MEDS: Moxifloxacin-PF 1 MG/ML VIAL (14:46)
[2025-04-21] MEDS: Lidocaine 1% Pres-Free 5 ML VIAL (14:46)
[2025-04-21] MEDS: Phenylephrine/Lidocaine (15/10) MG/ML 1 ML VIAL (14:47)
[2025-04-21] MEDS: Povidone-Iodine Ophth 30 ML BTL (14:47)
[2025-04-21] MEDS: Balanced Salt Soln.-PLUS 500 ML BAG OP (14:48)
[2025-04-21] MEDS: Prednisolone 1%, Moxifloxacin 0.5%, Bromfenac 0.09% 5.6ML BTL OD (14:48)
[2025-04-21] MEDS: Tetracaine 0.5% 4 ML BTL OD (14:49)
[2025-04-21 15:04] VITALS: BP 146/76; PULSE 58; RESP 14; TEMP 36.1; O2SAT 98
--- NOTE | 2025-04-21 15:11 | ROE_ITS ---
Operative Note Operative Note PRE-OP DIAGNOSIS: Nuclear cataract, right eye POST-OP DIAGNOSIS: same PROCEDURE: Cataract extraction using phacoemulsification with intraocular lens implant, right eye SURGEON: Shawn Madrid ANESTHESIA TYPE: Local By Surgeon and MAC Refer to Anesthesia Record ESTIMATED BLOOD LOSS: 0 PATHOLOGY: none sent COMPLICATIONS: None Patient was transported to: same day Patient's condition: stable Implants: Sky Clareon [id number] Indications: Progressive decreased vision due to cataract, right eye Procedure Description: CATARACT SURGERY OPERATIVE REPORT PREOPERATIVE DIAGNOSIS: Nuclear cataract, right eye POSTOPERATIVE DIAGNOSIS: Same OPERATION: Cataract extraction using phacoemulsification with posterior chamber intraocular lens implant, right eye. IOL: IOL Software Clerk/Model: Sky Clareon [id number] IOL Power: + 22.0 diopters IOL Serial Number: [id number] Optic Diameter: 6.0mm Haptic/Overall Diameter: 13.0mm PHACO INFO: Sky Centurion Vision System with OZil and Active Fluidics Cumulative Dispersed Energy (CDE): 6.20 seconds SURGEON: Shawn Madrid MD, YARELIS ANESTHESIA: Monitored Anesthesia Care (MAC), with local sub-tenon's anesthetic infiltration COMPLICATIONS: None SPECIMENS: None INDICATIONS FOR PROCEDURE: The patient is a 74-year-old lady with history of diminished visual acuity in her right eye secondary to the development of nuclear cataract. She is significantly symptomatic that she desires cataract surgery in attempt to improve and maximize her vision. The option of cataract surgery was offered to the patient and she wished to proceed. See office notes for detailed information. PROCEDURE: The correct surgical eye was identified and marked as the right eye and the pupil was dilated in the preoperative area using mydriatics and cycloplegics. The dilated pupil size was 6.0 mm. The patient elected to proc eed without oral sedation. The patient was brought to the operating room where cardiopulmonary monitoring was instituted and surgical time-out was performed, confirming the correct operative eye and IOL power. Topical anesthesia was administered and ophthalmic povidone-iodine 5% was instilled into the conjunctival fornices. The nasreen-ocular area was prepped with Betadine 10% solution and draped in the usual sterile fashion for intraocular surgery, including an aperture drape. A Tegaderm transparent film dressing was cut in half and used to cover the lashes and lid margins. Care was taken to sequester the lashes and lid margins under the Tegaderm dressing. A lid speculum was placed between the lids of the operative eye and the Sky LuxOR Revalia operating microscope was maneuvered into position. Pablo scissors were then used to make a conjunctival buttonhole approximately 6mm posterior to the limbus in the inferonasal quadrant. Blunt dissection was carried out to expose bare sclera, and a blunt-tipped sub-tenon?s anesthesia cannula was introduced and passed posteriorly along the globe where non- preserved plain lidocaine was injected into posterior sub-Tenon?s space. A [employer] deport knife was used to make a paracentesis port. Intraocular phenylephrine/lidocaine was injected into the anterior chamber. The anterior chamber was then filled with viscoelastic. A keratome knife was used to construct a two--plane clear corneal tunnel extending 2.0mm into clear cornea. A flap was raised on the anterior capsule and capsulorhexis forceps were used to complete a continuous curvilinear capsulorhexis of 5.0 mm. Balanced salt solution was then used to perform cortical cleaving hydrodissection and nuclear hydrodelineation until the lens could be freely rotated within the capsular bag. The lens nucleus was then disassembled and removed within the capsular bag and iris plane using phacoemulsification. Residual cortical material was removed using the I/A handpiece. The posterior capsule was carefully polished to remove as much residual lens epithelial cells as safely possible. The capsular bag was then inflated and the anterior chamber deepened with cohesive viscoelastic. The lens implant described above was inserted into the capsular bag using the Sky Autonome Injector. A Kuglen hook was used to dial the IOL into position. Residual viscoelastic was then removed first from posterior to the IOL, then from the anterior chamber using the I/A handpiece. The lens implant was noted to center nicely within the capsular bag. The incisions were stromally hydrated, and the anterior chamber was reformed using BSS. Then 0.5cc of moxifloxacin 1.0mg/ml were injected into the capsular bag and anterior chamber. The incisions were checked with a Weck spear and found to be secure. Several drops of ophthalmic povidone-iodine 5% were then applied to the eye followed by two drops of combination steroid/NSAID/antibiotic solution. The drapes were removed and a clear plastic protective eye shield was placed over the eye. The patient was then returned to Same Day Surgery in stable condition. Date of Procedure: 04/21/25
--- NOTE | 2025-04-21 15:11 | W.PM.DSUDISC ---
Date of service: 04/21/25 Discharge Plan Disposition Patient Disposition: Home Discharge Details Attending Provider: Shawn Madrid Primary Care Provider: Karrie Cason Home Meds and New Rx's Prescriptions: No Action Combivent Respimat 20-100 mcg/actuation mist 1 puff inhalation Q4H Qty: 4 5RF atorvastatin 10 mg tablet 5 mg PO DAILY Qty: 30 2RF Rx Instructions: take 1/2 tablet PO 2 days per week. Melatonin/CBD Gummies 2 tab PO HS Patient Comments: for sleep. Rhubarb Supplement 3 cap PO HS pantoprazole 40 mg tablet,delayed release (DR/EC) See Rx Instructions .ROUTE .COMPLEX Qty: 90 3RF Dose Instruction: TAKE ONE TABLET BY MOUTH EVERY DAY Rx Instructions: TAKE ONE TABLET BY MOUTH EVERY DAY atenolol 25 mg tablet 25 mg PO DAILY Qty: 90 3RF cholecalciferol (vitamin D3) 50 mcg (2,000 unit) capsule 50 mcg PO DAILY 90 Days Qty: 90 4RF magnesium citrate 125 mg capsule 125 mg PO DAILY Qty: 30 1RF Rx Instructions: Trial to help bowel regimen (pls help ID OTC if not covered by insurance) losartan 100 mg tablet 50 mg PO DAILY aspirin [Adult Low Dose Aspirin] 81 mg tablet,delayed release (DR/EC) 81 mg PO DAILY Rx Instructions: per note dated 04/24/21 [facility] [place] Vascular cgc clobetasol 0.05 % ointment 1 applic topical .COMPLEX Rx Instructions: 1 applic topically twice weekly x3 months, then 3 times a week for maintenance; estradiol 0.01 % (0.1 mg/gram) cream See Rx Instructions vaginal .COMPLEX Rx Instructions: Thin amount vaginally twice weekly x3 months, then 3 times a week for maintenance; ketoconazole 2 % shampoo 1 applic topical .COMPLEX Rx Instructions: 1 applic topically 2-3 times weekly. Lather on scalp, leave on 3-5 minutes, then rinse.; gabapentin 300 mg capsule 600 mg PO QHS Qty: 180 1RF albuterol sulfate 90 mcg/actuation HFA aerosol inhaler 1 puff inhalation QID PRN (Reason: shortness of breath or wheezing) Qty: 1 2RF Rx Instructions: 1-2 puffs up to 4 times a day as needed for shortness of breath acetaminophen [Pain Reliever ES(acetaminophn)] 500 MG tablet 1,000 mg PO PRN PRN Discharge Instructions Stand Alone Forms: DSU Post-Op Cataract, Linwodo Verdin (DSU) Discharge Orders Discharge Orders: Discharge Order (Routine); Ordered 04/21/25 Ordered By: Shawn Madrid DS: Diagnosis Discharge Diagnosis (1) Nuclear age-related cataract, right eye: Status: Resolved
--- NOTE | 2025-04-21 15:16 | W.ANESPOSTOP ---
Postoperative Evaluation Date, Time and Location Date Performed: 04/21/25 Time Performed: 15:04 Patient Location: Day Surgery Unit Vital Signs Most Recent Imported Vital Signs: Most Recent Vital Signs Temp Pulse Resp BP Pulse Ox 36.1 C L 58 L 14 146/76 H 98 04/21/25 15:04 04/21/25 15:04 04/21/25 15:04 04/21/25 15:04 04/21/25 15:04 Pain Score Most Recent Pain Score: Most Recent Pain Score Pain Level 0 04/21/25 15:04 Assessment Mental Status: Awake (Alert & Oriented to Patient Baseline) Airway and Respiratory Function: Patent airway with normal (patient baseline) respiratory exam Cardiovascular Function: Hemodynamically Stable Hydration Status: Adequately Hydrated Nausea & Vomiting: No Nausea or Vomiting Pain: Pt. Denies Any Pain Peripheral Nerve Block: Patient did not receive a nerve block
== END 2025-04-21 15:38 | disposition home or self-care (01) ==
LOC: SUR 13:55
PROVIDERS: PCP Nurse Practitioner Family; Visit Provider Ophthalmology
PROC: (CPT 66984; principal; 2025-04-21 14:15)
DX: H25.11 Age-related nuclear cataract, right eye (principal)
CPT/HCPCS: 66984; 00123; V2632; J2003

== ENCOUNTER 2025-05-05 06:53 | Day surgery (SDC) | payer MEDICARE, OTHER, SELFPAY ==
--- NOTE | 2025-05-05 06:30 | W.ANESPRE ---
General Info Date of Service Date Performed: 05/05/25 Height: 5 ft 4 in Weight: 61.5 kg Body Mass Index (BMI): 23.3 Surgical Procedure: Operation Date: 05/05/25 08:25 Proposed Procedure Side Surgeon p Cataract Extraction with IOL Implant Left Shawn Madrid MD Meds Allergies and Home Medications Allergies Allergy/AdvReac Type Severity Reaction Status Date / Time amoxicillin (From Augmentin) Allergy Intermediate SOB, rash Verified 05/05/25 06:56 clavulanic acid (From Allergy Intermediate SOB, rash Verified 05/05/25 06:56 Augmentin) Sulfa (Sulfonamide Allergy Intermediate swelling, Verified 05/05/25 06:56 Antibiotics) hives, itching oxycodone HCl (From Percocet) Allergy Unknown nightmares Verified 05/05/25 06:56 cilostazol AdvReac Intermediate Diarrhea Verified 05/05/25 06:56 omeprazole AdvReac Intermediate bloating, Verified 05/05/25 06:56 itching diarrhea, rotigotine AdvReac Intermediate hallucinati Verified 05/05/25 06:56 ons Home Medication ?Medication ?Instructions ?Recorded acetaminophen 500 mg tablet (Pain 1,000 mg PO PRN PRN 05/25/18 Reliever Extra Strength (acetaminophen)) aspirin 81 mg tablet,delayed 81 mg PO DAILY 04/24/21 release (Adult Low Dose Aspirin) cholecalciferol (vitamin D3) 50 50 mcg PO DAILY 90 days #90 caps 03/10/23 mcg (2,000 unit) capsule ipratropium 20 mcg-albuterol 100 1 puff inhalation Q4H #4 grams 03/15/24 mcg/actuation mist for inhalation (Combivent Respimat) clobetasol 0.05 % topical ointment 1 applic topical .COMPLEX 03/25/24 estradiol 0.01% (0.1 mg/gram) See Rx Instructions vaginal 03/25/24 vaginal cream .COMPLEX ketoconazole 2 % shampoo 1 applic topical .COMPLEX 03/25/24 magnesium citrate 125 mg capsule 125 mg PO DAILY osmotic laxatives 07/14/24 #30 caps Melatonin/CBD Gummies 2 tab PO HS 11/07/24 Rhubarb Supplement 3 cap PO HS 11/07/24 atenolol 25 mg tablet 25 mg PO DAILY #90 tabs 11/07/24 pantoprazole 40 mg tablet,delayed See Rx Instructions .Route 11/07/24 release .COMPLEX #90 tabs losartan 100 mg tablet 50 mg PO DAILY 03/16/25 albuterol sulfate 90 mcg/actuation 1 puff inhalation QID PRN 03/20/25 aerosol inhaler shortness of breath or wheezing #1 inh atorvastatin 10 mg tablet 5 mg (1/2 x 10 mg) PO DAILY 04/11/25 cholesterol #30 tabs gabapentin 300 mg capsule 600 mg (2 x 300 mg) PO QHS #180 04/26/25 caps Current Visit Medications: Current Medications Generic Name Dose Route Start Last Admin Trade Name Freq PRN Reason Stop Dose Admin Acetaminophen 1,000 mg 05/05/25 06:00 Acetaminophen 500 Mg Tab PO 06/04/25 05:59 Q4H PRN PRN Balanced Salt Solution 500 ml 05/05/25 06:00 Balanced Salt Soln.-Plus 500 Ml Bag OP 06/04/25 05:59 DIRECTED [facility] Miscellaneous Medication 0 ml 05/05/25 06:00 Prednisolone 1%, Moxifloxacin 0.5%, Bromfenac 0.09% 5.6ml Btl OS 06/04/25 05:59 DIRECTED [facility] Miscellaneous Medication 0 ml 05/05/25 06:00 Tropicam./Phenyleph. (1/2.5%) 5 Ml Btl OS 06/04/25 05:59 DIRECTED [facility] Tetracaine HCl 0 ml 05/05/25 06:00 Tetracaine 0.5% 4 Ml Btl OS 06/04/25 05:59 DIRECTED [facility] PFSH Active Problems Active Problems: Problem Status Onset Code Nuclear age-related cataract, left eye Acute H25.12 Nuclear age-related cataract, right eye Resolved H25.11 BMI 23.0-23.9, adult Acute Z68.23 Pre-op exam Acute Z01.818 Neoplasm of unspecified behavior of bone, soft tissue, and skin Acute D49.2 Other spondylosis with radiculopathy, cervical region Acute ~03/09/25 M47.22 Hyperlipidemia Acute E78.5 Lymphocytic colitis Acute ~11/2024 K52.832 Hiatal hernia Chronic ~11/14/24 K44.9 Vulvar atrophy Acute N90.5 Telangiectasias Acute 05/15/24 I78.1 Seborrheic keratoses Acute 03/23/24 L82.1 Multiple melanocytic nevi Acute 03/23/24 D22.9 Seborrheic dermatitis Acute 03/23/24 L21.9 Lichen sclerosus Acute 03/23/24 L90.0 Neuritis of left ankle Acute G57.92 Severe sprain of left ankle Acute S93.402A Pain in right foot Acute M79.671 Sprain of left ankle Acute S93.402A Neuropathy Acute G62.9 Left foot pain Acute M79.672 Essential hypertension Chronic 11/13/11 I10 Postprandial abdominal bloating Acute R14.0 Encounter for weight management Acute Z76.89 Metabolic syndrome Acute E88.810 COVID Acute ~10/2023 U07.1 Dyspepsia Acute R10.13 Atherosclerosis Acute I70.90 Neck stiffness Acute M43.6 Hyponatremia Acute ~07/2023 E87.1 Renal artery stenosis Acute I70.1 Elevated glucose level Acute R73.09 Weight gain, abnormal Acute R63.5 Stenosis of iliac artery Acute I77.1 COPD (chronic obstructive pulmonary disease) Chronic J44.9 Anxiety Acute 11/13/11 F41.9 Carotid artery occlusion Chronic 11/13/11 I65.29 Depression Acute 06/12/16 F32.9 GERD (gastroesophageal reflux disease) Acute 08/21/14 K21.9 Myalgia and myositis Acute 11/13/11 Osteoporosis Chronic 11/13/11 M81.0 Pulmonary emphysema Chronic 06/12/16 J43.9 Spinal stenosis, lumbar region, with neurogenic claudication Chronic 11/13/11 M48.062 Tobacco dependence Acute 11/13/11 F17.200 Left bundle branch block (LBBB) Acute I44.7 Restless leg Acute G25.81 Mild cognitive impairment Acute G31.84 Mild obstructive sleep apnea Acute G47.33 Migraine headache without aura Acute G43.009 Irritable bowel syndrome with constipation Acute K58.1 Arthritis of hand Acute M19.049 Incontinence of bowel Acute R15.9 Pelvic floor weakness in female Acute N81.89 Fatigue Acute R53.83 Cervical (neck) region somatic dysfunction Acute M99.01 Epigastric pain Acute R10.13 Medical History Medical History Atherosclerotic cardiovascular disease Peripheral vascular disease, unspecified (04/24/21) Moderate RLE PAD, Mild LLE PAD , [facility] [place] Hyperkalemia Encounter for diagnostic colonoscopy due to change in bowel habits Fibromyalgia Peripheral arterial disease [facility] ([facility] [place]07/26/22)Mod RT, Mild LFT TTH (tension-type headache) SOB (shortness of breath) on exertion Significant worsening x weeks, 03/2021 Chest pain negative cardiac w/u Vulvar pruritus Not responsive to topical estrogen. 09/2019 patient treated with clobetasol cream 11/2019 symptoms improving we will continue twice weekly Lumbar radicular syndrome Non-cardiac chest pain (05/01/15) Irritable colon (11/13/11) Surgical History Surgical History Hx of colonoscopy (11/14/24) 11/14/24 [facility], Dr. Lawrence. pre-op dx: chronic diarrhea,abnormal CT scan. Post op dx: Sigmoid diverticulosis. segmental bx's taken to exclude colitis. pathology pending. per [facility] ov note from 11/29/24; normal ileocolonoscopy. Segmental biopsies showed lymphocytic colitis. No polyps. History of esophagogastroduodenoscopy (11/14/24) 11/14/24 EGD w/ bx.HE 05/202311/14/24-[facility] for N/V, GERD.Dr. Lawrence. post op dx: Hiatal Hernia. bx's taken. path pending. 11/29/24-[facility] ov note: 2cm hiatal hernia.No celiac disease,H pylori.mild reactive gastropathic Hx of hand surgery Oophrectomy, Both Abdominal hysterectomy Colonoscopy - IV Sedation (11/22/21) 07/07/14 Dr. Meraz Tobacco Smoking/Tobacco Use Status: Current every day Tobacco Type: cigarettes Alcohol Alcohol Intake: current Alcohol intake frequency: a few times a week Alcohol type: beer Substance Use Substance use: Never Substance use type: does not use Imaging and Studies Imaging and Studies Study information below may be from another EMR and interpreted by another provider. Please see original notes in EMR for more complete details. EKG Summary: 12/01: sinus geremias, LBBB. 03/2021: sinus rhythm...normal P axis, V-rate 60- 99 Left bundle branch block...QRSd>120, broad/notched R Stress Test Summary: 03/31: 78% predicted HR achieved, ECG was negative. MPI with no evidence of ischemia or infarction, EF 56%. 04/2021: MPI Conclusion Ejection fraction was 67% with stress. There were no wall motion abnormalities. There was no evidence of ischemia on the imaging portion of the exam. This represents a normal SPECT stress test. Echocardiogram Summary: 05/31: LVEF 55%, AoV sclerotic w/o stenosis or regurg, trace to mild MR, trace TR, RVSP 27 mmhg. 04/2021: Conclusion Normal left ventricular wall thickness and chamber size. Estimated ejection fraction is 55%. Wall motion is normal. Normal right ventricular size and systolic function Both atria are normal in size The aortic valve is mildly sclerotic and trileaflet. There is no aortic stenosis or regurgitation Mild mitral annular calcification. Mild mitral regurgitation Normal tricuspid valve with trace to mild regurgitation Normal pulmonic valve with trace regurgitation Carotid Artery Summary:: 04/2017: Mild calcific plaque. No evidence of a significant internal carotid artery stenosis Pulmonary Function Summary: 03/31: mild airflow obstruction with decreased diffusion. consistent with COPD. Anesthesia Assessment and Plan Anesthesia History Personal History: No History of Anesthesia Complications Family History: No Family History of Anesthesia Complications Exercise Tolerance Exercise Tolerance: Metabolic Equivalents<4 (secondary to emphysema) Cardiac & Pulmonary Exam Cardiac Exam: Normal S1/S2 Heart Sounds Pulmonary Exam: Clear Bilateral Breath Sounds Implantable Cardiac Device Does patient have a Pacemaker or an ICD?: No Airway Exam Known Difficult Airway: No Mallampati Class: 3 Mouth Opening: Normal (> 3cm) Thyromental Distance: Greater than 3 cm Neck Range of Motion: Full ROM Neck Circumference: Normal Teeth Condition: Normal Dentition (partials left at home) ASA Classification ASA Score: ASA 3 Emergency Case?: No NPO Status NPO Status: NPO Clears >2 hours, Solids >8 hours Anesthesia Plan Resuscitation Status: Full Code Anesthesia Technique: MAC Anesthesia Airway Planned: Natural Airway Monitors Used: Standard Monitors Preoperative Comments:: Repeat cataract, no MKO last time, no health history change.
[2025-05-05 06:45] VITALS: BP 126/68; PULSE 65; RESP 16; TEMP 36; O2SAT 99
[2025-05-05] MEDS: Tropicam./Phenyleph. (1/2.5%) 5 ML BTL OS ×3 (07:02→07:12)
[2025-05-05 07:28] VITALS: BMI 23.3
[2025-05-05] MEDS: Povidone-Iodine Ophth 30 ML BTL (08:22)
[2025-05-05] MEDS: Tetracaine 0.5% 4 ML BTL OS (08:22)
[2025-05-05] MEDS: Lidocaine 1% Pres-Free 5 ML VIAL (08:29)
[2025-05-05] MEDS: Phenylephrine/Lidocaine (15/10) MG/ML 1 ML VIAL (08:30)
[2025-05-05] MEDS: Duovisc Viscoelastic System EACH 1 EACH (08:30)
[2025-05-05] MEDS: Balanced Salt Soln.-PLUS 500 ML BAG OP (08:31)
[2025-05-05] MEDS: Moxifloxacin-PF 1 MG/ML VIAL (08:40)
[2025-05-05] MEDS: Prednisolone 1%, Moxifloxacin 0.5%, Bromfenac 0.09% 5.6ML BTL OS (08:41)
[2025-05-05 08:46] VITALS: BP 132/83; PULSE 60; RESP 16; TEMP 36.2; O2SAT 97
--- NOTE | 2025-05-05 08:46 | PDOC.DSDIS_ITS ---
Date of service: 05/05/25 Discharge Plan Disposition Patient Disposition: Home Discharge Details Attending Provider: Shawn Madrid Primary Care Provider: Karrie Cason Home Meds and New Rx's Prescriptions: No Action Combivent Respimat 20-100 mcg/actuation mist 1 puff inhalation Q4H Qty: 4 5RF atorvastatin 10 mg tablet 5 mg PO DAILY Qty: 30 2RF Rx Instructions: take 1/2 tablet PO 2 days per week. Melatonin/CBD Gummies 2 tab PO HS Patient Comments: for sleep. Rhubarb Supplement 3 cap PO HS pantoprazole 40 mg tablet,delayed release (DR/EC) See Rx Instructions .ROUTE .COMPLEX Qty: 90 3RF Dose Instruction: TAKE ONE TABLET BY MOUTH EVERY DAY Rx Instructions: TAKE ONE TABLET BY MOUTH EVERY DAY atenolol 25 mg tablet 25 mg PO DAILY Qty: 90 3RF cholecalciferol (vitamin D3) 50 mcg (2,000 unit) capsule 50 mcg PO DAILY 90 Days Qty: 90 4RF magnesium citrate 125 mg capsule 125 mg PO DAILY Qty: 30 1RF Rx Instructions: Trial to help bowel regimen (pls help ID OTC if not covered by insurance) losartan 100 mg tablet 50 mg PO DAILY aspirin [Adult Low Dose Aspirin] 81 mg tablet,delayed release (DR/EC) 81 mg PO DAILY Rx Instructions: per note dated 04/24/21 [facility] [place] Vascular cgc clobetasol 0.05 % ointment 1 applic topical .COMPLEX Rx Instructions: 1 applic topically twice weekly x3 months, then 3 times a week for maintenance; estradiol 0.01 % (0.1 mg/gram) cream See Rx Instructions vaginal .COMPLEX Rx Instructions: Thin amount vaginally twice weekly x3 months, then 3 times a week for maintenance; ketoconazole 2 % shampoo 1 applic topical .COMPLEX Rx Instructions: 1 applic topically 2-3 times weekly. Lather on scalp, leave on 3-5 minutes, then rinse.; albuterol sulfate 90 mcg/actuation HFA aerosol inhaler 1 puff inhalation QID PRN (Reason: shortness of breath or wheezing) Qty: 1 2RF Rx Instructions: 1-2 puffs up to 4 times a day as needed for shortness of breath gabapentin 300 mg capsule 600 mg PO QHS Qty: 180 1RF acetaminophen [Pain Reliever ES(acetaminophn)] 500 MG tablet 1,000 mg PO PRN PRN Discharge Instructions Stand Alone Forms: DSU Post-Op Cataract, Linwood Verdin (DSU) Discharge Orders Discharge Orders: Discharge Order (Routine); Ordered 05/05/25 Ordered By: Shawn Madrid DS: Diagnosis Discharge Diagnosis (1) Nuclear age-related cataract, left eye: Status: Resolved
--- NOTE | 2025-05-05 08:47 | ROE_ITS ---
Operative Note Operative Note PRE-OP DIAGNOSIS: Nuclear cataract, left eye POST-OP DIAGNOSIS: same PROCEDURE: Cataract extraction using phacoemulsification with intraocular lens implant, left eye SURGEON: Shawn Madrid ANESTHESIA TYPE: Local By Surgeon and MAC Refer to Anesthesia Record PATHOLOGY: none sent COMPLICATIONS: None Patient was transported to: same day Patient's condition: stable Implants: Syk Clareon [id number] Indications: Progressive decreased vision due to cataract, left eye Procedure Description: CATARACT SURGERY OPERATIVE REPORT PREOPERATIVE DIAGNOSIS: Nuclear cataract, left eye POSTOPERATIVE DIAGNOSIS: Same OPERATION: Cataract extraction using phacoemulsification with posterior chamber intraocular lens implant, left eye. IOL: IOL Reconciliation Analyst/Model: Sky Clareon [id number] IOL Power: + 23.0 diopters IOL Serial Number: [id number] Optic Diameter: 6.0mm Haptic/Overall Diameter: 13.0mm PHACO INFO: Sky Eventtusurion Vision System with OZil and Active Fluidics Cumulative Dispersed Energy (CDE): 4.40 seconds SURGEON: Shawn Madrid MD, YARELIS ANESTHESIA: Monitored Anesthesia Care (MAC), with local sub-tenon's anesthetic infiltration COMPLICATIONS: None SPECIMENS: None INDICATIONS FOR PROCEDURE: The patient is a 74-year-old lady with history of diminished visual acuity in both eyes secondary to the development of bilateral nuclear cataract. She has already undergone cataract surgery in the right eye and is doing well postoperatively. She now presents for cataract surgery in the left eye. See office notes for detailed information. PROCEDURE: The correct surgical eye was identified and marked as the left eye and the pupil was dilated in the preoperative area using mydriatics and cycloplegics. The dilated pupil size was 7.0 mm. The patient elected to proceed without oral sedation. The patient was brought to the operating room where cardiopulmonary monitoring was instituted and surgical time-out was performed, confirming the correct operative eye and IOL power. Topical anesthesia was administered and ophthalmic povidone-iodine 5% was instilled into the conjunctival fornices. The nasreen-ocular area was prepped with Betadine 10% solution and draped in the usual sterile fashion for intraocular surgery, including an aperture drape. A Tegaderm transparent film dressing was cut in half and used to cover the lashes and lid margins. Care was taken to sequester the lashes and lid margins under the Tegaderm dressing. A lid speculum was placed between the lids of the operative eye and the Sky LuxOR Revalia operating microscope was maneuvered into position. Pablo scissors were then used to make a conjunctival buttonhole approximately 6mm posterior to the limbus in the inferonasal quadrant. Blunt dissection was carried out to expose bare sclera, and a blunt-tipped sub-tenon?s anesthesia cannula was introduced and passed posteriorly along the globe where non- preserved plain lidocaine was injected into posterior sub-Tenon?s space. A sideport knife was used to make a paracentesis port. Intraocular phenylephrine/lidocaine was injected into the anterior chamber. The anterior chamber was then filled with viscoelastic. A keratome knife was used construct a two-plane clear corneal tunnel extending 2.0mm into clear c ornea. A flap was raised on the anterior capsule and capsulorhexis forceps were used to complete a continuous curvilinear capsulorhexis of 5.0 mm. Balanced salt solution was then used to perform cortical cleaving hydrodissection and nuclear hydrodelineation until the lens could be freely rotated within the capsular bag. The lens nucleus was then disassembled and removed within the capsular bag and iris plane using phacoemulsification. Residual cortical material was removed using the irrigation/aspiration handpiece. The posterior capsule was carefully polished to remove as much residual lens epithelial cells as safely possible. The capsular bag was then inflated and the anterior chamber deepened with viscoelastic. The lens implant described above was inserted into the capsular bag using the Sky Autonome Injector. A Kuglen hook was used to dial the IOL into position. Residual viscoelastic was then removed first from posterior to the IOL, then from the anterior chamber using the I/A handpiece. The lens implant was noted to center nicely within the capsular bag. The incisions were stromally hydrated, and the anterior chamber was reformed using BSS. Then 0.5cc of moxifloxacin 1.0mg/ml were injected into the capsular bag and anterior chamber. The incisions were checked with a Weck spear and found to be secure. Several drops of ophthalmic povidone-iodine 5% were then applied to the eye followed by two drops of combination steroid/NSAID/antibiotic solution. The drapes were removed and a clear plastic protective eye shield was placed over the eye. The patient was then returned to Same Day Surgery in stable condition. Date of Procedure: 05/05/25
--- NOTE | 2025-05-05 08:56 | W.ANESPOSTOP ---
Postoperative Evaluation Date, Time and Location Date Performed: 05/05/25 Time Performed: 08:56 Patient Location: Day Surgery Unit Vital Signs Most Recent Imported Vital Signs: Most Recent Vital Signs Temp Pulse Resp BP Pulse Ox 36.2 C L 60 16 132/83 97 05/05/25 08:46 05/05/25 08:46 05/05/25 08:46 05/05/25 08:46 05/05/25 08:46 Pain Score Most Recent Pain Score: Most Recent Pain Score Pain Level 0 05/05/25 08:46 Assessment Mental Status: Awake (Alert & Oriented to Patient Baseline) Airway and Respiratory Function: Patent airway with normal (patient baseline) respiratory exam Cardiovascular Function: Hemodynamically Stable Hydration Status: Adequately Hydrated Nausea & Vomiting: No Nausea or Vomiting Pain: Pt. Denies Any Pain Peripheral Nerve Block: Patient did not receive a nerve block
== END 2025-05-05 09:05 | disposition home or self-care (01) ==
PROVIDERS: PCP Nurse Practitioner Family; Visit Provider Ophthalmology
PROC: (CPT 66984; principal; 2025-05-05 08:15)
DX: H25.12 Age-related nuclear cataract, left eye (principal); Z98.41 Cataract extraction status, right eye
CPT/HCPCS: 66984; 00123; V2632; J2003

== ENCOUNTER 2025-05-22 03:22 | Outpatient (CLI) | payer MEDICARE, OTHER, SELFPAY ==
--- NOTE | 2025-05-23 10:41 | W.NUTRFU ---
Date of service: 05/22/25 Time of Service: 12:00 Nutrition Note NOTE: Floridalma referred for nutrition visit because of her desire to lose weight. She refers to her gut area and feels she has excessive weight. 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 She also has a BMI of 22.8 based on her measurements 05/05/25 in the ED. For individuals her age, a more ideal BMI would be 25-27 area. I prefaced that I did not think it was a healthy for her to lose much weight at all. But I did discuss that if she desired to recomposition her body a little she should focus on gaining some muscle and limiting added sugar and refined starches. Per our interview she usually skips breakfast and identifies as an emotional eater. We discussed priorities for her goals: -meet daily protein goal most days of 90g. ideally break this up throughout the day -start trying to develop a breakfast habit. missing breakfast is a missed opportunity to get some protein (and fiber) -try to hit a minimum goal of 25 grams of fiber, work up slowly by choosing higher fiber starch options and more whole produce and legumes We looked at menu planning resource for around [phone] kcals per day (current estimated energy needs at ~1397kcals/day) Floridalma has my contact info should she desire follow up or have any questions. Time Spent in Nutritional Counseling and Treatment: 25 min
== END 2025-05-22 03:23 | disposition home or self-care (01) ==
PROVIDERS: PCP Nurse Practitioner Family; Visit Provider Dietitian, Registered
DX: E66.9 Obesity, unspecified (principal); Z68.23 Body mass index [BMI] 23.0-23.9, adult
CPT/HCPCS: 00123; 97802

== ENCOUNTER → 2025-09-14 10:34 | Outpatient (BNVA) | payer MEDICARE, SELFPAY | PROVIDERS: PCP Nurse Practitioner Family; Referring Provider Nurse Practitioner; Visit Provider Physician Assistant Surgical | DX: J44.9 Chronic obstructive pulmonary disease, unspecified (principal); K21.9 Gastro-esophageal reflux disease without esophagitis; G47.33 Obstructive sleep apnea (adult) (pediatric); F17.210 Nicotine dependence, cigarettes, uncomplicated; Z23 Encounter for immunization | CPT/HCPCS: 90471; 90653; 94664; 99214 ==

== ENCOUNTER 2025-10-11 10:53 | Outpatient (CLI) | payer MEDICARE, SELFPAY ==
--- NOTE | 2025-10-11 10:45 | RT.EKG_ITS ---
APPROVED REPORT Exam: Resting ECG Reason for Exam: Elevated bp, chest tightness Patient Location: O HR:63 bpm ECG Measurements Heart Rate 63 AXIS MD 207 P 73 QRSd 140 QRS -28 QT 454 T 104 QTc 465 Conclusion Sinus rhythm...normal P axis, V-rate 50- 99 Left bundle branch block...QRSd>120, broad/notched R
== END 2025-10-11 10:54 | disposition home or self-care (01) ==
LOC: DI.KIM 10:55
PROVIDERS: PCP Nurse Practitioner Family; Visit Provider Nurse Practitioner Family
DX: R07.89 Other chest pain (principal); I10 Essential (primary) hypertension; I49.3 Ventricular premature depolarization; I44.7 Left bundle-branch block, unspecified
CPT/HCPCS: 93010

== ENCOUNTER 2025-10-11 11:20 | Emergency (ER) | payer MEDICARE, SELFPAY ==
[2025-10-11] VITALS (30 sets, daily range): BP systolic 170–212; BP diastolic 57–163; PULSE 53–80; RESP 13–23; TEMP 36.3; O2SAT 95–98
--- NOTE | 2025-10-11 11:15 | RT.EKG_ITS ---
APPROVED REPORT Exam: Resting ECG Reason for Exam: Heart Trouble Patient Location: E HR:65 bpm ECG Measurements Heart Rate 65 AXIS AK 190 P 32 QRSd 139 QRS -24 QT 451 T 170 QTc 468 Conclusion Sinus rhythm...normal P axis, V-rate 60- 99 Ventricular premature complex...V complex w/ short R-R interval Left bundle branch block...QRSd>120, broad/notched R No STEMI
--- NOTE | 2025-10-11 11:41 | ED.GENADUL_ITS ---
Discharge Plan Disposition Patient Disposition: Home Condition: Stable Discharge Details Clinical Impression: Chest pain of uncertain etiology Primary Care Provider: Karrie Cason ED Provider: Jr Romero Home Meds and New Rx's Prescriptions: Continued Melatonin/CBD Gummies 2 tab PO HS Patient Comments: for sleep. Rhubarb Supplement 3 cap PO HS pantoprazole 40 mg tablet,delayed release (DR/EC) See Rx Instructions .ROUTE .COMPLEX Qty: 90 3RF Dose Instruction: TAKE ONE TABLET BY MOUTH EVERY DAY Rx Instructions: TAKE ONE TABLET BY MOUTH EVERY DAY atenolol 25 mg tablet 25 mg PO DAILY Qty: 90 3RF atorvastatin 10 mg tablet 10 mg PO DAILY Qty: 30 2RF Patient Comments: 09/14/25 Pt states she takes 5 mg Mondays and Tuesdays. RH cholecalciferol (vitamin D3) 50 mcg (2,000 unit) capsule 50 mcg PO DAILY 90 Days Qty: 90 4RF magnesium citrate 125 mg capsule 125 mg PO DAILY Qty: 30 1RF Rx Instructions: Trial to help bowel regimen (pls help ID OTC if not covered by insurance) ipratropium-albuterol 0.5 mg-3 mg(2.5 mg base)/3 mL solution for nebulization 3 ml inhalation QID PRN (Reason: wheezing) Qty: 180 3RF aspirin [Adult Low Dose Aspirin] 81 mg tablet,delayed release (DR/EC) 81 mg PO DAILY Rx Instructions: per note dated 04/24/21 [facility] [place] [facility] clobetasol 0.05 % ointment 1 applic topical .COMPLEX Rx Instructions: 1 applic topically twice weekly x3 months, then 3 times a week for maintenance; estradiol 0.01 % (0.1 mg/gram) cream See Rx Instructions vaginal .COMPLEX Rx Instructions: Thin amount vaginally twice weekly x3 months, then 3 times a week for main tenance; ketoconazole 2 % shampoo 1 applic topical .COMPLEX Rx Instructions: 1 applic topically 2-3 times weekly. Lather on scalp, leave on 3-5 minutes, then rinse.; albuterol sulfate 90 mcg/actuation HFA aerosol inhaler 1 puff inhalation QID PRN (Reason: shortness of breath or wheezing) Qty: 1 2RF Rx Instructions: 1-2 puffs up to 4 times a day as needed for shortness of breath Combivent Respimat 20-100 mcg/actuation mist 1 puff inhalation Q4H Qty: 4 5RF ondansetron 4 mg tablet,disintegrating 4 mg PO Q8H PRN (Reason: nausea and vomiting) Qty: 10 0RF acetaminophen [Pain Reliever ES(acetaminophn)] 500 MG tablet 1,000 mg PO PRN PRN No Action amlodipine 5 mg tablet 5 mg PO DAILY Qty: 30 3RF losartan 100 mg tablet 100 mg PO DAILY Qty: 90 2RF gabapentin 300 mg capsule 600 mg PO QHS Qty: 180 1RF Discharge Instructions Instructions: Chest Pain, Adult ED Additional Instructions: You were seen in the emergency department for your chest pain as well as some elevated blood pressure and some blurry vision, your cardiac workup is negative, you do have risk factors and we did discuss possible observation in the hospital you prefer to obtain your stress and echocardiogram as an outpatient, please follow-up with your primary care provider about adding another antihypertensive medication if you continue to have high blood pressures, we performed a workup for endorgan damage from hypertensive emergency today and found no findings, your CT scan shows no strokes since onset, your chest x-ray shows no pulmonary edema, please return for any further worsening of your chest pain, shortness of breath, vision changes, headache or any other emergent concerns. Stand Alone Forms: Portal Information Referrals: Karrie Cason APRN [Primary Care Provider, [facility]] Discharge Data Discharge Date/Time-TO BE ENTERED AT DEPARTURE: 10/11/25 15:57 HPI General Date/Time Provider Initiated Documentation: 10/11/25 11:30 . HPI Narrative: 75 year-old female presents to ED today by POV/ambulating with a chief complaint of chest tightness, high blood pressure, some blurry vision, and some falls without trauma after standing up quickly over the past week. Quality described as chest tightness, mild blurred vision, no radiation to severe headache, palpitations, syncope, nausea/vomiting, fever, cough, shortness of breath, slurred speech, confusion, numbness/tingling, coordination difficulties. Raysa rity is described as mild to moderate. Palliating factors include nothing specific attempted. Provoking factors include standing up too fast. Patient's PCP sent over from office visit for some possible new ST depressions. Patient not anticoagulated. Related Data Home Medications ?Medication ?Instructions ?Recorded ?Confirmed acetaminophen 500 mg tablet (Pain 1,000 mg PO PRN PRN 05/25/18 10/11/25 Reliever Extra Strength (acetaminophen)) aspirin 81 mg tablet,delayed 81 mg PO DAILY 04/24/21 1 12/12/24 release (Adult Low Dose Aspirin) cholecalciferol (vitamin D3) 50 50 mcg PO DAILY 90 day s #90 caps 03/10/23 10/11/25 mcg (2,000 unit) capsule clobetasol 0.05 % topical ointment 1 applic topical .C OMPLEX 03/25/24 10/11/25 estradiol 0.01% (0.1 mg/gram) See Rx Instructions vagi nal 03/25/24 10/11/25 vaginal cream .COMPLEX ketoconazole 2 % shampoo 1 applic topical .COMPLEX 10/11/25 magnesium citrate 125 mg capsule 125 mg PO DAILY osmot ic laxatives 07/14/24 10/11/25 #30 caps Melatonin/CBD Gummies 2 tab PO HS 11/07/24 5 Rhubarb Supplement 3 cap PO HS 11/07/24 5 atenolol 25 mg tablet 25 mg PO DAILY #90 tabs 10/1110/11/25 pantoprazole 40 mg tablet,delayed See Rx Instructions .Route 11/07/24 10/11/25 release .COMPLEX #90 tabs albuterol sulfate 90 mcg/actuation 1 puff inhalation Q ID PRN 03/20/25 10/11/25 aerosol inhaler shortness of breath or wheez ing #1 inh ipratropium 20 mcg-albuterol 100 1 puff inhalation Q4H #4 grams 05/23/25 10/11/25 mcg/actuation mist for inhalation (Combivent Respimat) ondansetron 4 mg disintegrating 4 mg PO Q8H PRN nausea and 09/04/25 10/11/25 tablet vomiting #10 tabs ipratropium 0.5 mg-albuterol 3 mg 3 ml inhalation QID PRN wheezing 09/14/25 10/11/25 (2.5 mg base)/3 mL nebulization #180 mL soln amlodipine 5 mg tablet 5 mg PO DAILY htn #30 tabs 1 12/12/24 10/11/25 atorvastatin 10 mg tablet 10 mg PO DAILY cholesterol # 30 tabs 10/11/25 10/11/25 gabapentin 300 mg capsule 600 mg (2 x 300 mg) PO QHS # 180 10/13/25 caps losartan 100 mg tablet 100 mg PO DAILY #90 tabs 04/02 Previous Rx's ?Medication ?Instructions ?Recorded cholecalciferol (vitamin D3) 50 50 mcg PO DAILY 90 day s #90 caps 03/10/23 mcg (2,000 unit) capsule magnesium citrate 125 mg capsule 125 mg PO DAILY osmot ic laxatives 07/14/24 #30 caps atenolol 25 mg tablet 25 mg PO DAILY #90 tabs 10/11 pantoprazole 40 mg tablet,delayed See Rx Instructions .Route 11/07/24 release .COMPLEX #90 tabs albuterol sulfate 90 mcg/actuation 1 puff inhalation Q ID PRN 03/20/25 aerosol inhaler shortness of breath or wheez ing #1 inh ipratropium 20 mcg-albuterol 100 1 puff inhalation Q4H #4 grams 05/23/25 mcg/actuation mist for inhalation (Combivent Respimat) ondansetron 4 mg disintegrating 4 mg PO Q8H PRN nausea and 09/04/25 tablet vomiting #10 tabs ipratropium 0.5 mg-albuterol 3 mg 3 ml inhalation QID PRN wheezing 09/14/25 (2.5 mg base)/3 mL nebulization #180 mL soln amlodipine 5 mg tablet 5 mg PO DAILY htn #30 tabs 1 12/12/24 atorvastatin 10 mg tablet 10 mg PO DAILY cholesterol # 30 tabs 10/11/25 gabapentin 300 mg capsule 600 mg (2 x 300 mg) PO QHS # 180 10/13/25 caps losartan 100 mg tablet 100 mg PO DAILY #90 tabs 04/02 Allergies Allergy/AdvReac Type Severity Reaction Status Date / Time amoxicillin (From Augmentin) Allergy Intermediate SOB, rash Verified 10/11/25 11:31 clavulanic acid (From Allergy Intermediate SOB, rash Verified 10/11/25 11:31 Augmentin) Sulfa (Sulfonamide Allergy Intermediate swelling, Verified 10/11/25 11:31 Antibiotics) hives, itching oxycodone HCl (From Percocet) Allergy Unknown nightmares Verified 10/11/25 11:31 cilostazol AdvReac Intermediate Diarrhea Verified 10/11/25 11:31 omeprazole AdvReac Intermediate bloating, Verified 10/11/25 11:31 itching diarrhea, rotigotine AdvReac Intermediate hallucinati Verified 10/11/25 11:31 ons General Stated Complaint: Chest Pain DAVID: 3 Review of Systems All systems reviewed & are unremarkable except as noted in HPI and below Exam Narrative Exam Narrative: GENERAL APPEARANCE: Well-nourished, non-toxic, awake and alert, atraumatic, no acute distress. SKIN: Warm, pink, dry, intact, without rashes/lesions/ulcerations. HEAD: Normocephalic, atraumatic, normal hair distribution for gender/age. EYES: Normal conjunctiva, no exudates on lids/lashes. ENT: Nares patent, no circumoral cyanosis, no facial swelling NECK: Supple, trachea midline, painless cervical ROM. LUNGS/CHEST: Lungs CTA bilaterally-no rhonchi/rales/wheeze diffusely, non- labored respirations, normal A/P diameter, symmetrical expansion, no chest wall deformity HEART (CV/PV): Regular rate and rhythm without murmur, no peripheral edema, no JVD. ABDOMEN: Soft, non-distended, no guarding, no tenderness. MSK: Normal ROM, no swelling/deformity to bilateral UEs or LEs, moving all extremities without weakness, no cyanosis, spine midline without tenderness, normal curvature. NEURO: Mental Status AAOx4 - alert to person, place, time, events No facial droop, no forehead involvement, no dysmetria with FNF Motor: No focal weakness - strength 5/5 in bilateral UEs and LEs, proximal and distal, symmetric. Sensory: sensation intact to light touch globally. Gait normal: patient ambulated without ataxia into ED room. PSYCH: euthymic, cooperative, pleasant, appropriate speech Course Vital Signs Vital signs: Vital Signs Temperature 36.3 C L 10/11/25 11:26 Pulse 72 10/11/25 11:26 Respiratory Rate 16 10/11/25 11:26 Blood Pressure 183/77 H 10/11/25 11:26 Pulse Oximetry 98 10/11/25 11:26 Temperature 36.3 C L 10/11/25 11:26 Temperature Source Oral 10/11/25 11:26 Pulse 72 10/11/25 11:26 Respiratory Rate 16 10/11/25 11:26 Blood Pressure 183/77 H 10/11/25 11:26 Pulse Oximetry 98 10/11/25 11:26 Pain Level 4 10/11/25 11:26 Medical Decision Making This dictation utilizes [id number] dictation software and may contain unedited grammatical errors. 75 year-old female presents to ED today by POV/ambulating with a chief complaint of chest tightness, high blood pressure, some blurry vision, and some falls without trauma after standing up quickly over the past week. Quality described as chest tightness, mild blurred vision, no radiation to severe headache, palpitations, syncope, nausea/vomiting, fever, cough, shortness of breath, slurred speech, confusion, numbness/tingling, coordination difficulties. Severity is described as mild to moderate. Palliating factors include nothing specific attempted. Provoking factors include standing up too fast. Patients' me dical history: Atherosclerotic cardiovascular disease, PVD, fibromyalgia, PAD, tension type headache, lumbar radiculopathy, emphysema, cataracts of both eyes, neuropathy, COPD, RAYMUNDO, history of left bundle branch block. Family and social history: daily tobacco use, eats healthy diet. Pertinent exam findings / vital signs include benign cardiopulmonary exam, benign abdomen, neuro intact. Differential / pathologies of concern include ACS, COPD, demand ischemia, hypertensive urgency/emergency, unlikely stroke. Diagnostic studies of: - CBC, CMP, D-dimer, lactate, magnesium, serial troponins, BNP, lipase, TSH, EKG, CT head without contrast, x-ray chest. - CBC is unremarkable - D-dimer is age-adjusted negative - Lactate 1.1 - CMP is unremarkable - Serial troponins negative with reliable onset - BNP is elevated at 1173 without signs of peripheral edema or hypoxia or respiratory distress - Lipase within normal - TSH within normal limits - EKG is consistent with her old left bundle branch block and she is in sinus rhythm with some submillimeter ST depressions in the lateral leads - CT head without evidence of stroke over weeks onset, no evidence of ICH - X-ray chest shows no pulmonary edema Interventions of: -None, HEART Score 4 moderate risk - patient prefers outpatient workup, discussed need for return for any worsening CP/SOB/syncope-like symptoms. Patient will speak with her PCP and have ECHO & stress test scheduled. Patient will re-present to ED for any worsening acute symptoms. ED Course/Assessment/Plan: 75-year-old female presents with a chief complaint of some high blood pressure noted and went to her PCP who referred her here, she notes intermittent blurry vision some chest tightness over the past 2 weeks she has had some dizziness upon standing up but feels fine today states this is only when she changes position rapidly. Her cardiac workup is negative, D-dimer is negative, she has submillimeter ST depressions in 2 lateral leads but an old left bundle branch block, chest x-ray shows no pulmonary edema, CT head without any abnormality with significant onset where stroke would likely show up on CT, no ICH, kidney function is normal, I discussed the patient's heart score and that I do recommend she get a stress test and echocardiogram she acknowledged the risks and would prefer to get the studies as an outpatient, she will return for any worsening or persistence or increase in frequency of her symptoms. Findings not consistent with ACS, PE, CHF, DAMARIS, ICH or stroke, pulmonary edema or pneumonia. Disposition of Chest Pain of Uncertain Cause. Patient verbalized understanding of the plan and return to ED criteria and engaged in shared decision making. Medical Records Medical records reviewed: Yes I reviewed the patient's medical records. Imaging Data Radiologic Study: Attestation: I personally reviewed and interpreted this imaging study as follows: Imaging: CT Scan Radiologist's impression: EXAM: CT HEAD WO CLINICAL HISTORY: dizziness. TECHNIQUE: Imaging Protocol: Axial computed tomography images with coronal and sagittal reformatted images were created and reviewed COMPARISON: CT CT HEAD WO from 04/03/2021 FINDINGS: There are no skull fractures. There is no fluid in the visualized paranasal sinuses. There is no evidence of intracranial hemorrhage, mass effect, or shift of midline structures. There are no extra-axial fluid collections. The ventricles are not enlarged or shifted and there is no blood within the ventricular system nor within the basal cisterns. Amount of involutional change consistent with patient's age and unchanged from CT scan of March 2021. There is again noted calcification in both vertebral arteries the skull base as well as mural calcification within the intra cavernous internal carotid arteries. IMPRESSION: No acute intracranial findings on this noninfused CT scan of the brain. Radiologic Study #2: Attestation: I personally reviewed and interpreted this imaging study as follows: Imaging: X-Ray Radiologist's impression: EXAM: XR CHEST 2V PA LATERAL CLINICAL HISTORY: chest pain. TECHNIQUE: 2D digital imaging was performed. COMPARISON: CR XR CHEST 2V PA LATERAL from 06/08/2023 FINDINGS: 2 views: Heart size is normal. The mediastinum is not widened. Some apical scarring and COPD changes are noted but there are no new infiltrates nor pleural effusions. No pulmonary edema. No ominous pulmonary nodules. IMPRESSION: No acute pulmonary findings. Lab Data Lab results reviewed: Yes I reviewed the patient's lab results. Labs: Laboratory Tests Range/Units 10/11/25 10/11/25 12:23 13:31 WBC (4.4-10.8) 10^3/uL 5.59 RBC (3.93-5.22) 10^6/uL 4.11 Hgb (11.2-15.7) g/dL 13.1 Hct (36.0-46.0) % 38.0 MCV (80-95) fL 93 MCH (27.0-33.0) pg 31.9 MCHC (32.0-36.0) % 34.5 RDW (11.7-14.6) % 13.7 Plt Count (130-400) 10^3/uL 221 MPV (8.0-11.0) fL 9.5 Immature Gran % % 0.2 Neutrophils % % 65.0 Lymphocytes % % 24.2 Monocytes % % 8.2 Eosinophils % % 1.3 Basophils % % 1.1 Nucleated RBC % (0.0-0.3) % 0.0 Absolute Neutrophils (1.2-6.7) 10^3/uL 3.64 Absolute Lymphocytes (1.2-3.4) 10^3/uL 1.35 Absolute Monocytes (0.1-0.8) 10^3/uL 0.46 Absolute Eosinophils (0.0-0.7) 10^3/uL 0.07 Absolute Basophils (0.0-0.2) 10^3/uL 0.06 D-Dimer (<500) ng/mlFEU 511 H VBG Lactate (<or=2.0) mmol/L 1.1 Sodium Cancelled 141 Potassium Cancelled 4.3 Chloride Cancelled 110 H Carbon Dioxide Cancelled 22.9 Anion Gap Cancelled 8.1 BUN Cancelled 11 Creatinine Cancelled 1.03 H Est GFR (CKD-EPI 2020) Cancelled 51.94 Glucose Cancelled 82 Calcium Cancelled 8.9 Magnesium (1.6-2.6) mg/dL 1.7 Total Bilirubin Cancelled 0.60 AST Cancelled 25 ALT Cancelled 15 Alkaline Phosphatase Cancelled 91 Troponin I (<35) ng/L 3 4 NT-Pro-B Natriuret Pep (<300) pg/mL 1173 H Total Protein Cancelled 6.8 Albumin Cancelled 3.9 Lipase (<53) U/L 31 TSH (0.55-4.78) uIU/mL 1.78 PFSH All Active Problems (Updated 10/11/25 @ 15:00 by RUDDY Tarango) Chest pain of uncertain etiology (Acute) Right-sided temporomandibular joint pain-dysfunction syndrome (Acute) BMI 23.0-23.9, adult (Acute) Pre-op exam (Acute) Neoplasm of unspecified behavior of bone, soft tissue, and skin (Acute) 03/15/25 R medial 1st toe - shave bx done at [facility] Other spondylosis with radiculopathy, cervical region (Acute ~03/09/25) 03/09/25 [facility] [place] [facility] [place] Hyperlipidemia (Acute) Lymphocytic colitis (Acute ~11/2024) 11/29/24 [facility] Hiatal hernia (Chronic ~11/14/24) [facility] 11/14/24 Op note: 2cm Hiatal Hernia.HE Vulvar atrophy (Acute) 03/15/25 f/u Derm Telangiectasias (Acute 03/23/24) Seborrheic keratoses (Acute 03/23/24) Multiple melanocytic nevi (Acute 03/23/24) Seborrheic dermatitis (Acute 03/23/24) Lichen sclerosus (Acute 03/23/24) 08/16/24 f/u Derm 03/15/25 Derm Neuritis of left ankle (Acute) Severe sprain of left ankle (Acute) Pain in right foot (Acute) Sprain of left ankle (Acute) Neuropathy (Acute) Left foot pain (Acute) Essential hypertension (Chronic 11/13/11) Postprandial abdominal bloating (Acute) Uncomfortable, lethargic .. and re-started post semaglutide d/c.. Encounter for weight management (Acute) Lost wt w/ semaglutide; bloating stopped; energy encreased Metabolic syndrome (Acute) COVID (Acute ~10/2023) Dyspepsia (Acute) Atherosclerosis (Acute) of several aa .. [place] [facility] [place] .. Neck stiffness (Acute) Hyponatremia (Acute ~07/2023) Renal artery stenosis (Acute) Elevated glucose level (Acute) Weight gain, abnormal (Acute) Pt is very stressed and disappointed; Hx emotional eating and trying to quit smkg .. [ ] semiglutide? vortiox? phent? Stenosis of iliac artery (Acute) severe pr CT ([facility], 06/2023) COPD (chronic obstructive pulmonary disease) (Chronic) Anxiety (Acute 11/13/11) Duloxetine decreased, 04/2023 Carotid artery occlusion (Chronic 11/13/11) MILD Depression (Acute 06/12/16) GERD (gastroesophageal reflux disease) (Acute 08/21/14) Esophageal pH monitoring 07-07-14 for chest pain. During chest pain episode had reflux 10% of the time 09/15/24 [facility] - Endoscopy recommended Myalgia and myositis (Acute 11/13/11) Osteoporosis (Chronic 11/13/11) DEXA (2017) Osteoporosis. Reclast x 2017, 2018, 2019. [ ] 2019, 2020, 2021 Pulmonary emphysema (Chronic 06/12/16) Spinal stenosis, lumbar region, with neurogenic claudication (Chronic 11/13/11) Chiro, PT (dry needling) helps .. needs to keep it up. Wkg on core mm strength. 07/2022, ik Tobacco dependence (Acute 11/13/11) Down to 6/day .. Left bundle branch block (LBBB) (Acute) Restless leg (Acute) Neuro? Neuropathic? Moderate relief with ropinirole (2021) Mild cognitive impairment (Acute) Marlene Huff, joined us 04/24/23 Mild obstructive sleep apnea (Acute) CPAP may be helping .. 11/27/21 [facility] Sleep note 01/16/22 Sleep Clinic, f/u 04/2022 Migraine headache without aura (Acute) Irritable bowel syndrome with constipation (Acute) Arthritis of hand (Acute) Incontinence of bowel (Acute) Episodic Pelvic floor weakness in female (Acute) Fatigue (Acute) Cervical (neck) region somatic dysfunction (Acute) disc narrowing (C5-6-7) per MRI, 06/08/23 [ ] [facility] [place] Epigastric pain (Acute) Medical History (Updated 10/11/25 @ 15:00 by RUDDY Tarango) Atherosclerotic cardiovascular disease Peripheral vascular disease, unspecified (04/24/21) Moderate RLE PAD, Mild LLE PAD , [facility] [place]kalemia Encounter for diagnostic colonoscopy due to change in bowel habits Fibromyalgia Peripheral arterial disease [place] [place]07[place])Mod RT, Mild LFT TTH (tension-type headache) SOB (shortness of breath) on exertion Significant worsening x weeks, 03/2021 Vulvar pruritus Not responsive to topical estrogen. 09/2019 patient treated with clobetasol cream 11/2019 symptoms improving we will continue twice weekly Lumbar radicular syndrome Non-cardiac chest pain (05/01/15) Irritable colon (11/13/11) Surgical History Hx of colonoscopy (11/14/24) 11/14/24 [facility], Dr. Lawrence. pre-op dx: chronic diarrhea,abnormal CT scan. Post op dx: Sigmoid diverticulosis. segmental bx's taken to exclude colitis. pathology pending. per [facility] ov note from 11/29/24; normal ileocolonoscopy. Segmental biopsies showed lymphocytic colitis. No polyps. History of esophagogastroduodenoscopy (11/14/24) 11/14/24 EGD w/ bx.HE 05/202311/14/24-[facility] for N/V, GERD.Dr. Lawrence. post op dx: Hiatal Hernia. bx's taken. path pending. 11/29/24-[facility] ov note: 2cm hiatal hernia.No celiac disease,H pylori.mild reactive gastropathic Hx of hand surgery Oophrectomy, Both Abdominal hysterectomy Colonoscopy - IV Sedation (11/22/21) 07/07/14 Dr. Meraz Family History Sister Essential hypertension Brother Essential hypertension Sister Rheumatoid arthritis Hypertension Social History Smoking/Tobacco Use Status: Current every day Tobacco Type: cigarettes Tobacco: How many years used: 50 Quit status: quit date established Smoking risk assessment performed?: Yes Alcohol Intake: current Alcohol Intake frequency: a few times a week Alcohol type: beer Drug use: Never Substance use type: does not use Caregiver/Support person: No Household members: spouse and other Details: H-Marvel x 50yrs Housing: house Number of Children: 2 number of grandchildren: 1 Communication Needs: Corrective Lenses current occupation: retired Current gender identity: female What is your relationship status?: Panel score (0-1 are the most socially isolated patients): 1 What type of physical activity do you participate in: walking Duration: 30-45 minutes/day Frequency: 5-6 times per week Seatbelt use: always Drive intox or ride w/intox box truck driver: No Working smoke detector in home: Yes Fire extinguisher in home: Yes Carbon monox detector in home: Yes Do you feel safe at home: Yes Do you feel safe in your relationship?: Yes Victim of physical abuse: No Victim of emotional abuse: No Victim of sexual abuse: No PAWSS Have you Been Recently Intoxicated or Drunk Within the Last 30 days?: No Have you Ever Experienced Previous Episodes of Alcohol Withdrawal?: No Have you ever Experienced Withdrawal Seizures?: No Have you ever Experienced Delirium Tremens(DT)s?: No Have you ever undergone Alcohol Rehabilitation Treatment (i.e, inpt ot outpatient treatment programs)?: No Have you ever Experienced Blackouts?: No Have you ever Combined Alcohol with other Downers within the last 90 days?: No Have you ever Combined Alcohol with any other Substance of Abuse during the last 90 days?: No Positive Blood Alcohol level on Presentation? [PCS.BAL]: No Evidence of Increased Autonomic Activity (i.e. HR>120, tremor, sweating, agitation, nausea)?: No Result: 0
[2025-10-11 12:30] LABS: Abs Immature Grans 0.01 10^3/uL (0.0-0.06); HCT 38.0 % (36.0-46.0); HGB 13.1 g/dL (11.2-15.7); Immature Grans % 0.2 %; MCH 31.9 pg (27.0-33.0); MCHC 34.5 % (32.0-36.0); MCV 93 fL (80-95); MPV 9.5 fL (8.0-11.0); Platelet Count 221 10^3/uL (130-400); RBC 4.11 10^6/uL (3.93-5.22); RDW 13.7 % (11.7-14.6); RDW-SD 46.7 fL; WBC 5.59 10^3/uL (4.4-10.8)
[2025-10-11 12:52] LABS: Magnesium 1.7 mg/dL (1.6-2.6)
[2025-10-11 12:53] LABS: Troponin I 3 ng/L (<35)
[2025-10-11 12:56] LABS: TSH (W/Ref FT4) 1.78 uIU/mL (0.55-4.78)
[2025-10-11 13:03] LABS: D-Dimer 511 ng/mlFEU (<500)
[2025-10-11 13:08] LABS: Lipase 31 U/L (<53)
--- NOTE | 2025-10-11 14:00 | DI.CT_ITS ---
Exam(s) CT HEAD WO EXAM: CT HEAD WO CLINICAL HISTORY: dizziness. TECHNIQUE: Imaging Protocol: Axial computed tomography images with coronal and sagittal reformatted images were created and reviewed COMPARISON: CT CT HEAD WO from 04/03/2021 FINDINGS: There are no skull fractures. There is no fluid in the visualized paranasal sinuses. There is no evidence of intracranial hemorrhage, mass effect, or shift of midline structures. There are no extra-axial fluid collections. The ventricles are not enlarged or shifted and there is no blood within the ventricular system nor within the basal cisterns. Amount of involutional change consistent with patient's age and unchanged from CT scan of March 2021. There is again noted calcification in both vertebral arteries the skull base as well as mural calcification within the intra cavernous internal carotid arteries. IMPRESSION: No acute intracranial findings on this noninfused CT scan of the brain. RADIATION DOSE DELIVERED: 840.66mGy.cm Total DLP DATA REPOSITORY: All CT scans at this facility are submitted to the National Radiology Data Registry (NRDR) Dose Index Registry (DIR) with the [employer] ([employer]). RADIATION OPTIMIZATION: All CT scans at this facility use at least one of these dose optimization techniques: automated exposure control; mA and/or kV adjustment per patient size (includes targeted exams where dose is matched to clinical indication); or iterative reconstruction.
[2025-10-11 14:05] LABS: Troponin I 4 ng/L (<35)
[2025-10-11 14:10] LABS: ALT 15 U/L (10-49); AST 25 U/L (<34); Albumin 3.9 g/dL (3.2-5.0); Alkaline Phosphatase 91 U/L (46-116); Anion Gap 8.1 mmol/L (3-11); BUN 11 mg/dL (9-23); Bilirubin, Total 0.60 mg/dL (0.2-1.2); CO2 22.9 mmol/L (20.0-31.0); Calcium 8.9 mg/dL (8.3-10.6); Chloride 110 mmol/L (98-107); Glucose 82 mg/dL (74-106); Potassium 4.3 mmol/L (3.5-5.1); Sodium 141 mmol/L (136-145); Total Protein 6.8 g/dL (5.7-8.2)
--- NOTE | 2025-10-11 14:59 | DI.RAD_ITS ---
Exam(s) XR CHEST 2V PA LATERAL EXAM: XR CHEST 2V PA LATERAL CLINICAL HISTORY: chest pain. TECHNIQUE: 2D digital imaging was performed. COMPARISON: CR XR CHEST 2V PA LATERAL from 06/08/2023 FINDINGS: 2 views: Heart size is normal. The mediastinum is not widened. Some apical scarring and COPD changes are noted but there are no new infiltrates nor pleural effusions. No pulmonary edema. No ominous pulmonary nodules. IMPRESSION: No acute pulmonary findings. DATA REPOSITORY: RADIATION DOSE DELIVERED:
--- NOTE | 2025-10-14 09:02 | NUR.NOTE ---
Access chart to reconcile EKG orders with EKG's in [facility]. Nursing Note:
== END 2025-10-11 15:57 | disposition home or self-care (01) ==
PROVIDERS: Emergency Provider Physician Assistant; PCP Nurse Practitioner Family
DX: R07.9 Chest pain, unspecified (principal); I44.7 Left bundle-branch block, unspecified; I10 Essential (primary) hypertension; J44.9 Chronic obstructive pulmonary disease, unspecified; Z79.82 Long term (current) use of aspirin
CPT/HCPCS: 80053; 83690; 93005; 99284; 70450; 71046; 83605; 83735; 83880; 84443; 84484; 85025; 85379; 93010

== ENCOUNTER → 2025-10-20 01:09 | Outpatient (CLI) | payer MEDICARE, SELFPAY ==
--- NOTE | 2025-10-20 05:45 | DI.US_ITS ---
APPROVED REPORT EXAM: Comprehensive 2D, Doppler, and color-flow Echocardiogram Patient Location: Out-Patient Countersinker: Rush Lawton RDCS (AE) Indications: hypertensive urgency Other Information Study Quality: Adequate Conclusion Normal left ventricular wall thickness and chamber size. Ejection fraction is 50 to 55%. There are no segmental wall motion abnormalities Normal right ventricular size and function Mildly enlarged left atrium. Normal right atrial size Mild mitral annular calcification. Mild to moderate mitral regurgitation Wall motion Left Ventricle The left ventricle is normal size. The left ventricular systolic function is normal. The left ventricular ejection fraction is within the normal range. There is normal left ventricular wall thickness. No segmental wall motion abnormalities There is no ventricular septal defect visualized. LVEF is 50-55%. Right Ventricle The right ventricle is normal size. The right ventricular systolic function is normal. Atria The left atrium size is mildly dilated The right atrium size is normal. The interatrial septum is intact with no evidence for an atrial septal defect. Aortic Valve The aortic valve is normal in structure. Aortic valve is trileaflet. There is no aortic valvular stenosis. No aortic regurgitation is present. Mitral Valve Mild mitral annular calcification. No evidence of mitral valve stenosis. Mild to moderate mitral regurgitation. Tricuspid Valve The tricuspid valve is normal in structure. There is no tricuspid valve stenosis. Trace tricuspid regurgitation. Pulmonic Valve The pulmonary valve is normal in structure. There is no pulmonic valvular stenosis. Trivial pulmonic regurgitation. Great Vessels The aortic root is normal in size. Ascending aorta is not well visualized. Aortic arch is normal in caliber. IVC is normal in size and collapses >50% with inspiration. Pericardium There is no pericardial effusion. 2D Dimensions IVSD d PLAX 0.92 cm F: 0.6-1.0 Ao Root d 2.54 cm F: 2.7 - 3.3 LVPW d PLAX 0.86 cm F: 0.6 - 1.0 Ao Asc Diam d 1.99 cm F: 2.3 - 3.1 LVID d PLAX 4.87 cm F: 3.8 - 5.2 LVDs 3.50 cm F: 2.2 - 3.5 LV EF Teichholz 54.1 % FS 28.04 % LV EDV (Teich) 111.1 mL LV ESV (Teich) 51.0 mL Stroke Vol Index (Teich) 36.66 M-Mode TAPSE 2.33 cm (M/F) >1.7 Auto EF LV EDV A4C 88.5 mL LV EDV A2C 89.4 mL LV EDV BP 90.3 mL LV ESV A4C 42.6 mL LV ESV A2C 40.2 mL LV ESV BP 42.0 mL LVEF(%) A4C 51.9 % LVEF(%) A2C 55.1 % LVEF(%) BP 53.5 % LV SV A4C 46.0 ml LV SV A2C 49.3 ml LV SV BP 48.3 ml LV CO A4C 2.5 L/min LV CO A2C 2.8 L/min LV CO BP 2.6 L/min HR A4C 54.20 BPM HR A2C 55.90 BPM LV EDV Index (BP) LA Volume LA Length A4C 4.5 cm LA Length A2C 4.5 cm LA Area A4C s 11.54 cm2 LA Area A2C s 11.95 cm2 LA Vol A4C A-L 25.07 mL LA Vol A2C A-L 27.19 mL LA Vol Biplane A-L 26.2 mL LA Vol/BSA A4C A-L LA Vol/BSA A2C A-L LA Vol/BSA BP A-L 16.0 mL/m2 LA Vol A4C MOD 23.1 mL LA Vol A2C MOD 25.7 mL LA Vol BP MOD 24.3 mL RA Volume RA Area A4C 7.2 cm2 RA ESV A4C (A-L) 14.9mL RA Vol/BSA A4C A-L RA Length A4C 3.0 cm RA ESV A4C (MOD) 13.5mL LV Diastology MV E' medial 0.058 (>0.07 m/s) MV E Vmax 0.72 (0.4-1.3 m/s) MV E/E' MED 12.25 (<14) MV A Vmax 0.70 (0.4-1.3 m/s) MV E' lateral 0.077 (>0.1 m/s) E/A Ratio 1.0 MV E/E' LAT 9.27 (<14) MV E' Average 0.068 m/s MV E/E'(average) 10.56 Aortic Valve AoV Vmax 1.31 m/s LVOT Vmax 0.72 m/s AoV Peak Grad 6.9 mmHg LVOT Peak Grad 2.1 mmHg AoV VTI 0.314 m LVOT VTI 0.173 m AoV Mean Lenin. 0.88 m/s LVOT Mean Grad 1.1 mmHg AoV Mean Grad 3.5 mmHg AV Regurg Peak Gr. 6.89 mmHg Velocity Ratio 0.55 Mitral Valve MV DT 189 (160-240 msec) MV Vmax TIPS 0.78 m/s MV Mean Grad 1.0 (<2mmHg) MV VTI 0.311 m Pulmonary Valve PV Vmax 0.81 (0.5-1.5 m/s) RVOT Vmax 0.57 m/s PV Peak Grad 2.6 mmHg RVOT Peak Gr. 1.3 mmHg PV Mean Lenin 0.57 m/s RVOT VTI 0.158 m PV Mean Grad 1.4 mmHg RVOT Mean Gr. 0.8 mmHg
== END ==
LOC: DI 01:10
PROVIDERS: PCP Nurse Practitioner Family; Visit Provider Nurse Practitioner Family
DX: I10 Essential (primary) hypertension (principal)
CPT/HCPCS: 93306

== ENCOUNTER → 2025-10-26 00:09 | Outpatient (CLI) | payer MEDICARE, SELFPAY ==
--- NOTE | 2025-10-26 08:00 | DI.NM_ITS ---
APPROVED REPORT Exam: Pharmacologic Patient Location: Out-Patient Room/Bed: Stress Nurse: Debbie Benavidez RN Ordering Provider:CECELIA CASEY, Contact Number: [phone] BMI: 22.65 Baseline Rhythm: LBBB Indications: chest pressure Medical History Medical History: atherosclerotic CVD, PVD, fibromylagia, PAD, emphysema, b/l cataracts, neuropathy, COPD, RAYMUNDO, h/o LBBB, HLD, HTN, anxiety, depression, GERD, osteoporosis, tobacco dependence, fibromyalgia Cardiac Medications: aspirin, melatonin/CBD gummies, atenolol, pantoprazole, albuterol sulfate, combivent respimat, ondansetron, ipratropium-albuterol, amlodipine, atorvastatin, gabapentin, losartan Allergies: amoxicillin, clavulanic acid, sulfas, oxycodone HCL, cilostazol, omeprazole, rotigotine Cardiac Risk Factors: family hx, HTN, HLD, COPD, PVD/CVD, smoker Previous Cardiac Procedures: n/a Pretest Chest Pain Characteristics: No chest pain Exercise History: Indeterminate Physical Disabilities: n/a Lung Sounds: Clear to auscultation Heart Sounds: Regular Stress Test Details Test: Pharmacologic stress was paired with low level exercise. Reason for pharmacologic stress test: LBBB, beta curry. Nuclear Acquisition: Rest Tc-99m/Stress Tc-99m 1 day Rest Isotope: Tc-99m Sestamibi. Dose: 10.3 Date: 10/26/2025 Injection Time: 0830 Stress Isotope: Tc-99m Sestamibi. Dose: 29.0 Date: 10/26/2025 Injection Time: 1020 HR Resting HR Supine: 63 bpm Max Heart Rate (APMHR): 143 bpm Resting HR Standin bpm Target HR (85% APMHR): 122 bpm Max HR Achieved: 98 bpm % of APMHR: 69 Recovery HR: 77 bpm BP Resting BP Supine: 140/70 mmHg Resting BP Standin/80 mmHg Max BP: 160/90 mmHg Recovery BP: 138/70 mmHg ECG Resting ECG: LBBB Ectopy: rare PAC Stress ECG: LBBB ST Change: Nondiagnostic low heart rate Arrhythmia: None Recovery ECG: LBBB Recovery ST Change: Nondiagnostic low heart rate Recovery Arrhythmia: rare PAC Clinical Stress Symptoms: Dyspnea, Nausea Angina Score: None Rate Pressure Product: 09932 Stress ECG Conclusion 1. Resting electrocardiogram showed a left bundle branch block 2. Patient underwent testing using a combination of pharmacologic stress with regadenoson and low-level exercise 3. Peak heart rate achieved was 69% of maximal predicted for age 4. Electrocardiographic portion of the test was nondiagnostic 5. See MPI report Stress Test Summary STAGE HR BP SpO2 Symptoms NOTES Supine 63 140/70 94 Standing 79 100/80 1 min post Lexiscan injection 97 160/90 severe SOB 3 min post Lexiscan injection 78 150/80 moderate SOB; nausea 6 min post Lexiscan injection 77 138/70 Walking eleonora test performed r/t LBBB on EKG and inability to hold beta curry. Pt c/o mod-severe SOB while walking with some nausea. All symptoms resolved by end of recovery. Pt left ambulatory in no acute distress. MPI Conclusion Myocardial perfusion is normal. There is no ischemia or evidence of prior infarction Ejection fraction is 54% with normal wall motion
[2025-10-26] MEDS: Regadenoson 0.4 MG/5 ML SYR IVP (10:20)
== END ==
LOC: DI 00:09
PROVIDERS: PCP Nurse Practitioner Family; Visit Provider Nurse Practitioner Family
DX: R07.89 Other chest pain (principal); I44.7 Left bundle-branch block, unspecified
CPT/HCPCS: 78452; 93016; 93018; 93017; J2785